=== PATIENT | female | born 1965 | race Caucasian/White ===

== ENCOUNTER 2020-07-20 13:27 | Outpatient (REF) | payer OTHER, SELFPAY ==
[2020-07-20 16:43] LABS: MANUAL DIFF FLAG NO
[2020-07-20 17:10] LABS: Anion Gap 13 (12-20); Blood Urea Nitrogen 15 mg/dL (9-16); Calcium 9.1 mg/dL (8.4-10.2); Carbon Dioxide 25 mmol/L (22-29); Chloride 107 mmol/L (96-108); Estimated Glomerular Filt Rate > 60; Glucose Random 79 mg/dL (60-115); Potassium 4.6 mmol/l (3.3-5.1); Sodium 140 mmol/L (135-145)
[2020-07-20 17:19] LABS: Basophils Absolute Auto 0.1 X10*3/uL (0.0-0.2); Basophils Percent Auto 1.6 % (0-2); Eosinophils Absolute Auto 0.2 X10*3/uL (0.0-0.4); Eosinophils Percent Auto 2.7 % (0-4); Hematocrit 44.6 % (37-47); Hemoglobin 14.3 g/dl (12.0-16.0); Imm Gran Abs Auto 0.01 X10*3/uL (0.00-0.03); Imm Gran Pct Auto 0.1 % (0.0-0.4); Lymphocytes Absolute Auto 2.3 X10*3/uL (1.2-4.9); Lymphocytes Percent Auto 33.7 % (20-40); Mean Corpuscular HGB Conc 32.1 g/dl (31.0-35.0); Mean Corpuscular Hemoglobin 30.3 pg (27.0-33.0); Mean Corpuscular Volume 94.5 fL (80-98); Mean Platelet Volume 12.2 fL (9.4-12.3); Monocytes Absolute Auto 0.7 X10*3/uL (0.1-1.2); Monocytes Percent Auto 10.1 % (2-11); Neutrophils Absolute Auto 3.5 X10*3/uL (2.0-8.3); Neutrophils Percent Auto 51.8 % (45-73); Platelet Count 304 X10*3/uL (160-400); Red Blood Count 4.72 X10*6/uL (4.20-5.50); Red Cell Distribution Width 12.7 % (11.0-16.0); White Blood Count 6.7 X10*3/uL (4.8-10.8)
[2020-07-20 17:24] LABS: TSH reflex Free T4 1.08 mIU/mL (0.32-4.0)
[2020-07-21 17:23] LABS: LDL Cholesterol Direct 155 mg/dL (<100)
[2020-07-24 13:38] LABS: Vitamin D 25-OH, D2 <4 ng/mL; Vitamin D 25-OH, D3 37 ng/mL; Vitamin D 25-OH, Total 37 ng/mL (30-100)
== END 2020-07-20 13:28 | disposition home or self-care (01) ==
LOC: HO.HMGCLDS 13:27
PROVIDERS: PCP Internal Medicine; Visit Provider Internal Medicine
DX: R23.2 Flushing (principal); E55.9 Vitamin D deficiency, unspecified; M79.7 Fibromyalgia; M19.90 Unspecified osteoarthritis, unspecified site; K21.9 Gastro-esophageal reflux disease without esophagitis; F33.9 Major depressive disorder, recurrent, unspecified
CPT/HCPCS: 36415; 80048; 82306; 83721; 84443; 85025

== ENCOUNTER 2020-08-26 12:19 | Outpatient (REF) | payer OTHER, SELFPAY ==
[2020-08-26 13:53] LABS: MANUAL DIFF FLAG NO
[2020-08-26 13:59] LABS: Basophils Absolute Auto 0.1 X10*3/uL (0.0-0.2); Basophils Percent Auto 1.1 % (0-2); Eosinophils Absolute Auto 0.3 X10*3/uL (0.0-0.4); Eosinophils Percent Auto 3.1 % (0-4); Hematocrit 43.2 % (37-47); Hemoglobin 13.8 g/dl (12.0-16.0); Imm Gran Abs Auto 0.03 X10*3/uL (0.00-0.03); Imm Gran Pct Auto 0.4 % (0.0-0.4); Lymphocytes Absolute Auto 2.6 X10*3/uL (1.2-4.9); Lymphocytes Percent Auto 32.4 % (20-40); Mean Corpuscular HGB Conc 31.9 g/dl (31.0-35.0); Mean Corpuscular Hemoglobin 30.3 pg (27.0-33.0); Mean Corpuscular Volume 94.7 fL (80-98); Mean Platelet Volume 11.6 fL (9.4-12.3); Monocytes Absolute Auto 0.8 X10*3/uL (0.1-1.2); Monocytes Percent Auto 9.9 % (2-11); Neutrophils Absolute Auto 4.3 X10*3/uL (2.0-8.3); Neutrophils Percent Auto 53.1 % (45-73); Platelet Count 368 X10*3/uL (160-400); Red Blood Count 4.56 X10*6/uL (4.20-5.50); Red Cell Distribution Width 12.9 % (11.0-16.0); White Blood Count 8.1 X10*3/uL (4.8-10.8)
== END 2020-08-26 12:20 | disposition home or self-care (01) ==
LOC: HO.HMGCLDS 12:19
PROVIDERS: PCP Internal Medicine; Visit Provider Nurse Practitioner Family
DX: M79.10 Myalgia, unspecified site (principal)
CPT/HCPCS: 36415; 85025

== ENCOUNTER → 2020-10-26 13:25 | Outpatient (BNVA) | payer OTHER, SELFPAY | PROVIDERS: PCP Internal Medicine; Visit Provider Dietitian, Registered ==

== ENCOUNTER 2020-11-30 13:20 | Outpatient (REF) | payer OTHER, SELFPAY ==
[2020-11-30 14:42] LABS: MANUAL DIFF FLAG NO
[2020-11-30 14:46] LABS: Basophils Absolute Auto 0.1 X10*3/uL (0.0-0.2); Basophils Percent Auto 1.1 % (0-2); Eosinophils Absolute Auto 0.1 X10*3/uL (0.0-0.4); Eosinophils Percent Auto 2.1 % (0-4); Hematocrit 42.4 % (37-47); Hemoglobin 13.9 g/dl (12.0-16.0); Imm Gran Abs Auto 0.01 X10*3/uL (0.00-0.03); Imm Gran Pct Auto 0.2 % (0.0-0.4); Lymphocytes Percent Auto 30.1 % (20-40); Mean Corpuscular HGB Conc 32.8 g/dl (31.0-35.0); Mean Corpuscular Hemoglobin 30.6 pg (27.0-33.0); Mean Corpuscular Volume 93.4 fL (80-98); Mean Platelet Volume 11.1 fL (9.4-12.3); Monocytes Absolute Auto 0.5 X10*3/uL (0.1-1.2); Monocytes Percent Auto 7.9 % (2-11); Neutrophils Absolute Auto 3.9 X10*3/uL (2.0-8.3); Neutrophils Percent Auto 58.6 % (45-73); Platelet Count 364 X10*3/uL (160-400); Red Blood Count 4.54 X10*6/uL (4.20-5.50); Red Cell Distribution Width 12.5 % (11.0-16.0); White Blood Count 6.6 X10*3/uL (4.8-10.8)
[2020-11-30 15:04] LABS: Alanine Aminotransferase 15 U/L (0-31); Alkaline Phosphatase 91 U/L (39-117); Anion Gap 12 (12-20); Aspartate Amino Transferase 20 U/L (5-31); Bilirubin Total 0.4 mg/dL (0.0-1.0); Blood Urea Nitrogen 15 mg/dL (9-16); C Reactive Protein 0.53 mg/dL (< or = 0.50); Calcium 9.3 mg/dL (8.4-10.2); Carbon Dioxide 24 mmol/L (22-29); Chloride 109 mmol/L (96-108); Estimated Glomerular Filt Rate > 60; Glucose Random 92 mg/dL (60-115); Potassium 4.3 mmol/L (3.3-5.1); Rheumatoid Factor < 15.0 IU/mL (<15.0); Sodium 141 mmol/L (135-145); Total Protein 7.1 g/dL (6.5-8.0)
[2020-11-30 15:24] LABS: Thyroid Stimulating Hormone 0.66 uIU/mL (0.32-4.0)
[2020-11-30 15:34] LABS: Erythrocyte Sedimentation Rate 10 MM/HR (0-20)
[2020-12-01 18:46] LABS: Cyclic Citrullinated Peptide <16 UNITS
[2020-12-03 14:22] LABS: Vitamin D 25-OH, D2 <4 ng/mL; Vitamin D 25-OH, D3 32 ng/mL; Vitamin D 25-OH, Total 32 ng/mL (30-100)
[2020-12-05 15:51] LABS: Anti Nuclear Antibody Screen POSITIVE (NEGATIVE); Anti Nuclear Antibody Titer 1:40 titer
== END 2020-11-30 13:21 | disposition home or self-care (01) ==
LOC: HO.LAB 13:20
PROVIDERS: PCP Internal Medicine; Visit Provider Student in an Organized Health Care Education/Training Program
DX: M25.50 Pain in unspecified joint (principal); M79.10 Myalgia, unspecified site; M77.11 Lateral epicondylitis, right elbow; M77.12 Lateral epicondylitis, left elbow; Z79.899 Other long term (current) drug therapy
CPT/HCPCS: 36415; 80053; 82306; 84443; 85025; 85652; 86038; 86039; 86140; 86200; 86431; 99202

== ENCOUNTER 2020-12-14 13:54 | Outpatient (RCR) | payer OTHER, SELFPAY | END 2021-01-25 11:57 | disposition other institution (70) | LOC: HO.OT 13:54 | PROVIDERS: PCP Internal Medicine; Visit Provider Student in an Organized Health Care Education/Training Program | DX: M25.50 Pain in unspecified joint (principal) | CPT/HCPCS: 97110; 97166 ==

== ENCOUNTER 2020-12-21 15:12 | Outpatient (REF) | payer OTHER, SELFPAY | END 2020-12-21 15:13 | disposition home or self-care (01) | LOC: HO.LAB 15:12 | PROVIDERS: Visit Provider Internal Medicine | DX: Z20.822 Contact with and (suspected) exposure to COVID-19 (principal) | CPT/HCPCS: C9803; U0003; U0005 ==

== ENCOUNTER 2021-01-11 15:25 | Outpatient (REF) | payer OTHER, SELFPAY ==
[2021-01-12 05:16] LABS: Lyme Abs Screen <0.90 index
== END 2021-01-11 15:26 | disposition home or self-care (01) ==
LOC: HO.LAB 15:25
PROVIDERS: PCP Internal Medicine; Visit Provider Student in an Organized Health Care Education/Training Program
DX: M25.50 Pain in unspecified joint (principal); Z79.899 Other long term (current) drug therapy
CPT/HCPCS: 36415; 86617; 86618; 99212

== ENCOUNTER 2021-02-14 15:08 | Outpatient (REF) | payer OTHER, SELFPAY ==
[2021-02-15 09:07] LABS: BV Int Neg Control Negative (Negative); BV Int Pos Control Positive (Positive)
[2021-02-15 09:28] LABS: CT PCR DETECTED (Not Detect.); NG PCR NOT DETECTED (Not Detect.)
== END 2021-02-14 15:09 | disposition home or self-care (01) ==
LOC: HO.LAB 15:08
PROVIDERS: PCP Internal Medicine; Visit Provider Obstetrics & Gynecology
DX: Z01.411 Encounter for gynecological examination (general) (routine) with abnormal findings (principal); Z11.3 Encounter for screening for infections with a predominantly sexual mode of transmission; N95.1 Menopausal and female climacteric states; R35.0 Frequency of micturition; Z20.2 Contact with and (suspected) exposure to infections with a predominantly sexual mode of transmission
CPT/HCPCS: 81003; 87086; 87480; 87491; 87510; 87591; 87660

== ENCOUNTER → 2021-02-22 09:57 | Outpatient (BNVA) | payer OTHER, SELFPAY | PROVIDERS: PCP Internal Medicine; Visit Provider Student in an Organized Health Care Education/Training Program | DX: M79.7 Fibromyalgia (principal) | CPT/HCPCS: 99212 ==

== ENCOUNTER 2021-02-27 12:49 | Outpatient (REF) | payer OTHER, SELFPAY ==
--- NOTE | ~2021-02-27 | MM_ITS ---
EXAMINATION: MM SCREENING DIGITAL BREAST TOMOSYNTHESIS, BILATERAL CLINICAL INFORMATION: Screening. Asymptomatic. The lifetime risk of breast cancer based on the Tyrer-Cuzick Model is 6%. COMPARISON: Outside mammography: 09/16/2019, 09/12/2018, 09/11/2017 ([place]) TECHNIQUE: Digital breast tomosynthesis is performed in both the craniocaudal and mediolateral oblique views along with computer-aided detection (CAD). Synthesized 2D images are generated from the tomosynthesis. Additional left CC view is provided. FINDINGS: There are scattered areas of fibroglandular density (ACR BI-RADS breast composition Category b). Parenchymal pattern is similar to the outside exams. There are stable fine scattered nodular asymmetries. No developing density or interval mass or architectural abnormality. A few punctate calcifications again noted mid outer left breast. The axilla and skin contours are unremarkable. MM/MM tomosynthesis screening BI IMPRESSION: No significant changes from prior outside exams. ASSESSMENT: BI-RADS 2: Benign RECOMMENDATION: Routine annual mammography screening. This patient's information was entered into a reminder system with a target due date for their next mammogram.
== END 2021-02-27 12:50 | disposition home or self-care (01) ==
LOC: HO.MAMMO 12:49
PROVIDERS: PCP Internal Medicine; Visit Provider Obstetrics & Gynecology
DX: Z12.31 Encounter for screening mammogram for malignant neoplasm of breast (principal)
CPT/HCPCS: 77063; 77067

== ENCOUNTER 2021-03-09 10:40 | Outpatient (REF) | payer OTHER, SELFPAY ==
[2021-03-09 12:56] LABS: MANUAL DIFF FLAG NO
[2021-03-09 13:04] LABS: Basophils Absolute Auto 0.1 X10*3/uL (0.0-0.2); Basophils Percent Auto 0.8 % (0-2); Eosinophils Absolute Auto 0.1 X10*3/uL (0.0-0.4); Eosinophils Percent Auto 1.7 % (0-4); Hematocrit 42.2 % (37-47); Hemoglobin 13.6 g/dl (12.0-16.0); Imm Gran Abs Auto 0.02 X10*3/uL (0.00-0.03); Imm Gran Pct Auto 0.3 % (0.0-0.4); Lymphocytes Percent Auto 28.5 % (20-40); Mean Corpuscular HGB Conc 32.2 g/dl (31.0-35.0); Mean Corpuscular Hemoglobin 30.1 pg (27.0-33.0); Mean Corpuscular Volume 93.4 fL (80-98); Monocytes Absolute Auto 0.6 X10*3/uL (0.1-1.2); Monocytes Percent Auto 8.7 % (2-11); Neutrophils Absolute Auto 4.3 X10*3/uL (2.0-8.3); Platelet Count 396 X10*3/uL (160-400); Red Blood Count 4.52 X10*6/uL (4.20-5.50); Red Cell Distribution Width 12.6 % (11.0-16.0); White Blood Count 7.1 X10*3/uL (4.8-10.8)
[2021-03-09 13:34] LABS: Alanine Aminotransferase 13 U/L (0-31); Alkaline Phosphatase 92 U/L (39-117); Anion Gap 12 (12-20); Aspartate Amino Transferase 20 U/L (5-31); Bilirubin Total 0.4 mg/dL (0.0-1.0); Blood Urea Nitrogen 12 mg/dL (9-16); C Reactive Protein 0.75 mg/dL (< or = 0.50); Calcium 9.5 mg/dL (8.4-10.2); Carbon Dioxide 24 mmol/L (22-29); Chloride 109 mmol/L (96-108); Estimated Glomerular Filt Rate > 60; Glucose Random 83 mg/dL (60-115); Sodium 140 mmol/L (135-145)
[2021-03-09 13:53] LABS: Erythrocyte Sedimentation Rate 13 MM/HR (0-20)
[2021-03-09 13:55] LABS: Thyroid Stimulating Hormone 1.09 uIU/mL (0.32-4.0)
[2021-03-14 20:37] LABS: Transglutaminase IgA 1 U/mL
[2021-03-16 11:52] LABS: Endomysial IgA Antibody Negative (Negative)
== END 2021-03-09 10:41 | disposition home or self-care (01) ==
LOC: HO.LAB 10:40
PROVIDERS: PCP Internal Medicine; Referring Provider Internal Medicine; Visit Provider Physician Assistant
DX: R10.11 Right upper quadrant pain (principal); K21.9 Gastro-esophageal reflux disease without esophagitis; K58.9 Irritable bowel syndrome, unspecified; K62.5 Hemorrhage of anus and rectum; K59.09 Other constipation; R19.7 Diarrhea, unspecified; Z79.899 Other long term (current) drug therapy
CPT/HCPCS: 36415; 80053; 83516; 84443; 85025; 85652; 86140; 86255; 86256; 99202

== ENCOUNTER 2021-04-03 14:00 | Outpatient (RCR) | payer OTHER, SELFPAY ==
--- NOTE | 2021-03-06 16:03 | MHC.PT.EP ---
[facility] [place] Office [place] Office [place] Office [address] Everardo Mackay [address] [phone] F: [phone] F: [phone] F: [phone] F: [phone] Physical Therapy Plan of Care Date of Evaluation: Date of Surgery: Diagnosis: Assessment: The patient arrived reporting a complicated pelvic history including multiple bladder mesh surgeries, and pelvic organ prolapse. The patient has had 5 vaginal deliveries and reports having a hysterectomy in 2009. She also has mixed urinary incontinence likely due to weakness in her pelvic floor and habits formed due to pelvic floor dysfuction. She reports dyspareunia and is unable to consistently have pleasurable intercourse. Her history was extensive and with the patient arriving late we deferred the internal exam until next visit. She is a good candidate for skilled pelvic floor therapy to improve muscle coordination, synergy of contraction, diaphragmatic breathing for modulating pressure control, and manual therapy to address likely scar tissue internally in her pelvic floor. I believe behavior training will also be beneficial for urge incontinence. Frequency and Duration: The patient will be seen 1x/8 visits Short Term Goals: 1. The patient to be able to learn modifications her and her partner can use during intercourse to alleviate pain caused by penetration. 2. Pt to report 25% reduction in deep pelvic pain. 3. Pt to be able to correctly activate her PFM to allow improved support to bowel and bladder. 4. Pt to be able to demonstrate a pre contraction before a cough Rug Dyer Goals: 1. The patient to be able to report no pain in her pelvis during house chore, and ADL's to help return to PLOF. 2. Pt to be able to improve PFM contraction to include a lift in the PFM to improve supportive function of the pelvic floor. 3. Pt to be able to return to normal sexual activity without pain. 4. Pt to reduce # of episodes of YULIA during the day by 50% to help improve quality of life and reduce pad usage. 5. Pt to be independent with her final HEP for PFM in order to help maintain gains made in therapy. Treatment Plan: Modalities to reduce pain, spasms and effusion. Manual therapy to restore motion and function. Therapeutic exercise to improve strength and flexibility. Neuromuscular re-education for posture and balance. Therapeutic activities to return to functional activities of daily living. Electronically signed by: Chrissie Vasquez PT DPT Please sign and return to therapist. Thank you for your referral.
== END 2021-07-24 08:00 | disposition home or self-care (01) ==
LOC: HO.PT 14:00
PROVIDERS: PCP Internal Medicine; Visit Provider Obstetrics & Gynecology
DX: N81.4 Uterovaginal prolapse, unspecified (principal)
CPT/HCPCS: 97110; 97112; 97140; 97163

== ENCOUNTER → 2021-04-27 12:02 | Outpatient (BNVA) | payer OTHER, SELFPAY | PROVIDERS: PCP Internal Medicine; Visit Provider Physician Assistant ==

== ENCOUNTER → 2021-05-04 14:43 | Outpatient (BNVA) | payer OTHER, SELFPAY | PROVIDERS: PCP Internal Medicine; Referring Provider Internal Medicine; Visit Provider Internal Medicine | DX: R00.2 Palpitations (principal) | CPT/HCPCS: 93005; 99202 ==

== ENCOUNTER 2021-05-18 10:40 | Outpatient (REF) | payer OTHER, SELFPAY ==
[2021-05-18 13:03] LABS: Alanine Aminotransferase 17 U/L (0-31); Albumin Level 4.1 g/dL (3.5-5.0); Alkaline Phosphatase 96 U/L (39-117); Anion Gap 12 (12-20); Aspartate Amino Transferase 20 U/L (5-31); Bilirubin Total 0.3 mg/dL (0.0-1.0); Blood Urea Nitrogen 9 mg/dL (9-16); Calcium 9.2 mg/dL (8.4-10.2); Carbon Dioxide 24 mmol/L (22-29); Chloride 107 mmol/L (96-108); Cholesterol 230 mg/dL; Estimated Glomerular Filt Rate > 60; Glucose Fasting 89 mg/dL (60-99); HDL Cholesterol 71 mg/dL; LDL Cholesterol Calculated 143 mg/dl; Potassium 4.5 mmol/L (3.3-5.1); Sodium 138 mmol/L (135-145); Total Protein 7.2 g/dL (6.5-8.0); Triglycerides 80 mg/dL
[2021-05-18 15:47] LABS: CT PCR NOT DETECTED (Not Detect.); NG PCR NOT DETECTED (Not Detect.)
[2021-05-22 13:27] LABS: Follicle Stimulating Hormone 38.2 mIU/mL
== END 2021-05-18 10:41 | disposition home or self-care (01) ==
LOC: HO.LAB 10:40
PROVIDERS: PCP Internal Medicine; Visit Provider Advanced Practice Midwife
DX: A74.9 Chlamydial infection, unspecified (principal); R23.2 Flushing; Z20.2 Contact with and (suspected) exposure to infections with a predominantly sexual mode of transmission; Z00.01 Encounter for general adult medical examination with abnormal findings; E78.9 Disorder of lipoprotein metabolism, unspecified; M79.7 Fibromyalgia; F33.9 Major depressive disorder, recurrent, unspecified; K21.9 Gastro-esophageal reflux disease without esophagitis
CPT/HCPCS: 36415; 80053; 80061; 83001; 87491; 87591; 99212

== ENCOUNTER → 2021-06-05 11:08 | Outpatient (REF) | payer OTHER, SELFPAY ==
--- NOTE | 2021-06-05 11:15 | HM_ITS ---
Total monitoring time 6 days and 21 hours. Underlying rhythm is sinus. Minimum heart rate 46/Min. Maximum 169/Min. Average 80/Min. No atrial fibrillation or flutter. No AV blocks, pauses. 2 supraventricular episodes. Longest 9 beats. Rare supraventricular ectopy with a burden of 0.01%. Very rare ventricular ectopy with a burden of less than 0.01%. No patient events. MTDD
== END ==
LOC: HO.CARD 11:08
PROVIDERS: PCP Internal Medicine; Visit Provider Internal Medicine
DX: R00.2 Palpitations (principal)
CPT/HCPCS: 93242

== ENCOUNTER → 2021-06-12 09:26 | Outpatient (REF) | payer OTHER, SELFPAY ==
--- NOTE | 2021-06-12 09:31 | CA_ITS ---
Transthoracic Echocardiogram Patient (Last, First, Middle): Janna Hooper, Gender: Female Date of : 1965 Age: 56 Procedure Date: 06/12/2021 Procedure Type: Transthoracic Echocardiogram Location: OP Height: 162.56 cm Weight: 77.11 kg BSA: 1.83 m2 Heart Rate: bpm BP: 120 / 72 mmHg Money Market Dealer: LAURA Referring MD: Hiram Fontenot MD Symptoms: R00.2 - Palpitations Study Quality: Fair ECG Rhythm: Sinus Conclusions: - The left ventricular systolic function is normal. The calculated ejection fraction is 69% by biplane method. - No obvious valvular pathology seen on this study. Findings Left Ventricle Normal left ventricular cavity size. There is normal left ventricular wall thickness. The left ventricular systolic function is normal. The calculated ejection fraction is 69% by biplane method. There is no evidence of regional wall motion abnormalities. Diastolic function is normal for age. Right Ventricle Normal right ventricular cavity size and systolic function. Atria Both atria are normal in size. Aortic Valve There is a normal trileaflet aortic valve. There is mild calcification of the aortic valve. There is no aortic valve stenosis. There is no aortic valve regurgitation. Mitral Valve The mitral valve appears normal. There is trace mitral valve regurgitation. There is no mitral valve stenosis. Pulmonic Valve The pulmonic valve was not well visualized. Tricuspid Valve Normal tricuspid valve structure. There is trace tricuspid valve regurgitation. The pulmonary artery systolic pressure is normal. Great Vessels The aortic annulus, sinuses of valsalva, and asc aorta are normal in size. Venous The inferior vena cava is normal in size and collapses greater than 50% with inspiration. Pericardium/Pleural There is no evidence of pericardial effusion. Prior Study Comparison No prior study available for comparison. Recommendations, Care & Conclusions No obvious valvular pathology seen on this study. Measurements 2D Linear Measurements IVSd: 0.84 0.6-0.9/0.6-1.0 cm LVIDd: 4.20 3.9-5.3/4.2-5.9 cm LVIDd Index: 2.30 2.4-3.2/2.2-3.1 cm/m2 LVIDs: 3.01 2.0-3.6 cm LVPWd: 0.74 0.7-1.1 cm Ao Root: 2.70 2.1-3.5 cm LA Diam: 3.20 2.7-3.8/3.0-4.0 cm LAIDs Index: 1.75 1.5-2.3 cm/m2 LV Mass: 123.04 67-162/88-224 g LV Mass Index: 67.24 43-95/49-115 g/m2 LVOT Diam: 2.00 3.0+(-)1.3 cm 2D Systolic Function EF 4C: 68.60 >55% EF 2C: 71.40 >55% EF BiP: 68.50 >55% Mitral Valve MV Pk E: 1.04 MV PK A: 0.77 MV Decel Time: 229.00 E/A: 1.30 E'Lateral: 10.90 E'Medial: 9.90 E/E' Med: 10.50 E/E' Lat: 9.50 PHT: 67.00 MVA PHT: 3.28 Decel [place]: 4.55 Aortic Valve AoV Pk Tino: 1.15 AoV Mn Tino: 0.78 AoV VTI: 0.29 AoV Pk Grad: 5.00 Aov Mn Grad: 3.00 RIMA Cont.VTI: 2.14 LVOT LVOT Pk Tino: 0.89 LVOT Mn Tino: 0.61 LVOT VTI: 0.20 LVOT Pk Grad: 3.00 LVOT Mn Grad: 2.00 LVOT Diam: 2.00 LVOT Area: 3.14 Diastolic Function MV Pk E: 1.04 MV Pk A: 0.77 E/A: 1.30 E'Medial: 9.90 E/E' Med: 10.50 E' Laterial: 10.90 E/E' Lat: 9.50 Right Ventricle TAPSE (mm): 1.69 TVS' Tino: 11.00 Tricuspid Valve TR Pk Tino: 1.36 TR Pk Grad: 7.00 RA Press: 3.00 RVSP: 10.00 Great Vessels Aorta Ao Root-2D: 2.70 2.0-3.7 cm Ao Asc: 2.60 2.1-3.4 cm Ao Arch: 2.30 Updated in Other Vendor System with Status of Final Hiram Fontenot MD electronically signed on 06/12/2021 12:18:55 PM with status of Final
== END ==
LOC: HO.CARD 09:26
PROVIDERS: PCP Internal Medicine; Visit Provider Internal Medicine
DX: R00.2 Palpitations (principal)
CPT/HCPCS: 93306

== ENCOUNTER → 2021-07-03 12:48 | Outpatient (BNVA) | payer OTHER, SELFPAY | PROVIDERS: PCP Internal Medicine; Referring Provider Internal Medicine; Visit Provider Internal Medicine | DX: I49.1 Atrial premature depolarization (principal); I49.3 Ventricular premature depolarization; R00.2 Palpitations | CPT/HCPCS: 99212 ==

== ENCOUNTER → 2021-08-29 14:51 | Outpatient (BNVA) | payer OTHER, SELFPAY | PROVIDERS: PCP Internal Medicine; Visit Provider Advanced Practice Midwife | DX: Z30.45 Encounter for surveillance of transdermal patch hormonal contraceptive device (principal) | CPT/HCPCS: Q3014 ==

== ENCOUNTER 2021-10-16 14:07 | Outpatient (REF) | payer OTHER, SELFPAY ==
[2021-10-17 05:17] LABS: CT PCR NOT DETECTED (Not Detect.); NG PCR NOT DETECTED (Not Detect.)
[2021-10-17 09:43] LABS: BV Int Neg Control Negative (Negative); BV Int Pos Control Positive (Positive)
== END 2021-10-16 14:08 | disposition home or self-care (01) ==
LOC: HO.LAB 14:07
PROVIDERS: PCP Internal Medicine; Visit Provider Advanced Practice Midwife
DX: R10.2 Pelvic and perineal pain (principal); N32.9 Bladder disorder, unspecified; R33.9 Retention of urine, unspecified; N95.1 Menopausal and female climacteric states; Z20.2 Contact with and (suspected) exposure to infections with a predominantly sexual mode of transmission
CPT/HCPCS: 87086; 87480; 87491; 87510; 87591; 87660; 99212

== ENCOUNTER 2021-12-08 10:09 | Outpatient (REF) | payer OTHER, SELFPAY ==
[2021-12-12 14:58] LABS: H Pylori Breath Test Negative (Negative)
== END 2021-12-08 10:10 | disposition home or self-care (01) ==
LOC: CF 10:09
PROVIDERS: PCP Internal Medicine; Referring Provider Internal Medicine; Visit Provider Internal Medicine Gastroenterology
DX: R10.13 Epigastric pain (principal)
CPT/HCPCS: 36415; 83013; 99212

== ENCOUNTER 2021-12-28 09:31 | Outpatient (REF) | payer OTHER, SELFPAY ==
--- NOTE | ~2021-12-28 | US_ITS ---
EXAMINATION: US ABDOMEN COMPLETE CLINICAL INFORMATION: Epigastric pain. COMPARISON: None TECHNIQUE: Real-time imaging of the abdominal viscera. FINDINGS: PANCREAS: Normal. ABDOMINAL AORTA: The proximal, mid, and distal segments are normal in caliber. INFERIOR VENA CAVA: Visualized portions are normal. LIVER: Normal. The liver is normal in size. The liver contour is normal. Parenchymal echogenicity is increased. No focal hepatic lesion. There is no intrahepatic biliary duct dilatation seen. GALLBLADDER: Normal. The gallbladder is physiologically distended without evidence of stones, sludge, polyps, wall thickening or pericholecystic fluid. COMMON BILE DUCT: Normal in caliber measuring 0.5 cm in diameter. RIGHT KIDNEY: Normal. No hydronephrosis. No renal calculi or focal parenchymal lesions. The kidney measures 9.7 cm in maximum dimension. LEFT KIDNEY: No hydronephrosis. There are several echogenic calculi with the largest in the lower pole measuring 0.6 x 0.3 cm. The kidney measures 9.3 cm in maximum dimension. There is a lower pole anechoic cyst measuring 2.5 x 2.7 x 2.3 cm. There is no caliectasis or hydronephrosis. SPLEEN: Normal. The spleen measures 8.1 cm in maximum dimension. FREE FLUID: None. US/US abdomen complete IMPRESSION: Hepatic steatosis without focal lesion. Anechoic cyst lower pole left kidney measuring 2.7 cm. There are several echogenic stones measuring 0.6 cm without focal lesion. There are punctate calcifications seen as well.
== END 2021-12-28 09:32 | disposition home or self-care (01) ==
LOC: HO.US 09:31
PROVIDERS: Visit Provider Internal Medicine Gastroenterology
DX: R10.13 Epigastric pain (principal)
CPT/HCPCS: 76700

== ENCOUNTER 2022-02-21 14:35 | Outpatient (REF) | payer OTHER, SELFPAY ==
[2022-02-21 16:35] LABS: MANUAL DIFF FLAG NO
[2022-02-21 16:43] LABS: Basophils Absolute Auto 0.1 X10*3/uL (0.0-0.2); Basophils Percent Auto 0.9 % (0-2); Eosinophils Absolute Auto 0.1 X10*3/uL (0.0-0.4); Eosinophils Percent Auto 1.4 % (0-4); Hematocrit 43.3 % (37.0-47.0); Hemoglobin 14.1 g/dl (12.0-16.0); Imm Gran Abs Auto 0.03 X10*3/uL (0.00-0.03); Imm Gran Pct Auto 0.4 % (0.0-0.4); Lymphocytes Absolute Auto 2.2 X10*3/uL (1.2-4.9); Lymphocytes Percent Auto 28.6 % (20-40); Mean Corpuscular HGB Conc 32.6 g/dl (31.0-35.0); Mean Corpuscular Hemoglobin 29.9 pg (27.0-33.0); Mean Corpuscular Volume 91.9 fL (80.0-98.0); Mean Platelet Volume 11.6 fL (9.4-12.3); Monocytes Absolute Auto 0.5 X10*3/uL (0.1-1.2); Monocytes Percent Auto 6.4 % (2-11); Neutrophils Absolute Auto 4.8 x10*3/uL (2.0-8.3); Neutrophils Percent Auto 62.3 % (45-73); Platelet Count 379 X10*3/uL (160-400); Red Blood Count 4.71 X10*6/uL (4.20-5.50); Red Cell Distribution Width 12.4 % (11.0-16.0); White Blood Count 7.7 X10*3/uL (4.8-10.8)
[2022-02-21 17:33] LABS: Alanine Aminotransferase 17 U/L (0-31); Albumin Level 4.2 g/dL (3.5-5.0); Alkaline Phosphatase 100 U/L (39-117); Anion Gap 13 (12-20); Aspartate Amino Transferase 21 U/L (5-31); Bilirubin Total 0.4 mg/dL (0.0-1.0); Blood Urea Nitrogen 11 mg/dL (9-16); Calcium 9.5 mg/dL (8.4-10.2); Carbon Dioxide 22 mmol/L (22-29); Chloride 109 mmol/L (96-108); Estimated Glomerular Filt Rate > 60; Glucose Random 99 mg/dL (60-115); Potassium 3.9 mmol/L (3.3-5.1); Sodium 140 mmol/L (135-145); Total Protein 7.3 g/dL (6.5-8.0)
[2022-02-21 17:53] LABS: TSH reflex Free T4 1.27 uIU/mL (0.32-4.0)
== END 2022-02-21 14:36 | disposition home or self-care (01) ==
LOC: HO.HMGCLDS 14:35
PROVIDERS: PCP Internal Medicine; Visit Provider Internal Medicine
DX: R23.3 Spontaneous ecchymoses (principal); R63.4 Abnormal weight loss
CPT/HCPCS: 36415; 80053; 84443; 85025

== ENCOUNTER 2022-02-28 13:17 | Outpatient (REF) | payer OTHER, SELFPAY ==
--- NOTE | ~2022-02-28 | MM_ITS ---
EXAMINATION: MM SCREENING DIGITAL BREAST TOMOSYNTHESIS, BILATERAL CLINICAL INFORMATION: Screening. Asymptomatic. The lifetime risk of breast cancer based on the Tyrer-Cuzick Model is 6%. COMPARISON: Mammography: 02/27/2021; outside mammography 09/16/2019, 09/12/2018, 09/11/2017 ([place]). TECHNIQUE: Digital breast tomosynthesis is performed in both the craniocaudal and mediolateral oblique views along with computer-aided detection (CAD). Synthesized 2D images are generated from the tomosynthesis. FINDINGS: There are scattered areas of fibroglandular density (ACR BI-RADS breast composition Category b). There is scattered benign-appearing smooth nodular asymmetries similar to prior studies. No developing density or interval architectural abnormality or significant mass. The axilla and skin contours are unremarkable. No abnormal calcifications on the right. Left breast has loosely grouped punctate calcifications central upper outer left breast mid depth which are questionably increased. Patient will be recalled for additional imaging. MM/MM tomosynthesis screening BI IMPRESSION: Left: -Loosely grouped fine punctate calcifications central upper outer breast mid depth questionably increased. Right: -No mammographic evidence of malignancy. ASSESSMENT: BI-RADS 0: Incomplete - Need Additional Imaging Evaluation RECOMMENDATION: 1. Additional views of the left breast (magnification CC, magnification ML). 2. Radiology department staff will contact the patient for additional imaging. This patient's information was entered into a reminder system with a target due date for their next mammogram.
== END 2022-02-28 13:18 | disposition home or self-care (01) ==
LOC: HO.MAMMO 13:17
PROVIDERS: Visit Provider Internal Medicine
DX: Z12.31 Encounter for screening mammogram for malignant neoplasm of breast (principal)
CPT/HCPCS: 77063; 77067

== ENCOUNTER 2022-03-06 13:26 | Outpatient (REF) | payer OTHER, SELFPAY ==
--- NOTE | ~2022-03-06 | MM_ITS ---
EXAMINATION: MM DIAGNOSTIC DIGITAL MAMMOGRAPHY, LEFT CLINICAL INFORMATION: Recall from screening for question of increased loosely grouped fine calcifications central upper outer left breast mid depth. COMPARISON: Mammography: 02/28/2022, 02/27/2021, 09/16/2019 TECHNIQUE: Digital mammography is performed in the following views: Magnification CC, magnification ML FINDINGS: There are scattered areas of fibroglandular density (ACR BI-RADS breast composition Category b). The magnification views show some loosely grouped punctate calcifications in the area of interest. They are likely unchanged from standard mammography 2019, no prior diagnostic exam 2 confirm. Results are discussed with the patient at time of visit. Management plan is for short interval follow-up left mammography to include magnification views in 6 months to confirm stability. MM/MM added views LT IMPRESSION: -Loosely grouped probable benign calcifications central upper outer left breast mid depth similar to prior mammography, likely stable. ASSESSMENT: BI-RADS 3: Probably Benign RECOMMENDATION: Diagnostic left mammography in 6 months. This patient's information was entered into a reminder system with a target due date for their next mammogram.
== END 2022-03-06 13:27 | disposition home or self-care (01) ==
LOC: HO.MAMMO 13:26
PROVIDERS: Visit Provider Internal Medicine
DX: R92.1 Mammographic calcification found on diagnostic imaging of breast (principal)
CPT/HCPCS: 77065

== ENCOUNTER 2022-03-16 13:48 | Outpatient (REF) | payer OTHER, SELFPAY ==
[2022-03-16 16:31] LABS: Urine Cytology See Pathology rpt
== END 2022-03-16 13:49 | disposition home or self-care (01) ==
LOC: HO.LAB 13:48
PROVIDERS: PCP Internal Medicine
DX: R31.9 Hematuria, unspecified (principal); R33.9 Retention of urine, unspecified; N23 Unspecified renal colic
CPT/HCPCS: 51798; 88112; 99202

== ENCOUNTER → 2022-03-23 10:21 | Outpatient (BNVA) | payer OTHER, SELFPAY | PROVIDERS: PCP Internal Medicine; Visit Provider Internal Medicine Gastroenterology | DX: K21.9 Gastro-esophageal reflux disease without esophagitis (principal); K30 Functional dyspepsia; K31.84 Gastroparesis | CPT/HCPCS: 99212 ==

== ENCOUNTER 2022-04-18 11:49 | Outpatient (REF) | payer OTHER, SELFPAY ==
--- NOTE | ~2022-04-18 | XR_ITS ---
EXAMINATION: XR HAND, RIGHT CLINICAL INFORMATION: Injury of the hand COMPARISON: None TECHNIQUE: PA, lateral, and oblique views of the right hand. FINDINGS: No fracture or dislocation. Alignment is maintained. Joint spaces are maintained. Soft tissues appear unremarkable. XR/XR hand RT 2V IMPRESSION: Normal right hand.
== END 2022-04-18 11:50 | disposition home or self-care (01) ==
LOC: HO.HMGCX 11:49
PROVIDERS: PCP Internal Medicine; Visit Provider Internal Medicine
DX: S69.91XA Unspecified injury of right wrist, hand and finger(s), initial encounter (principal)
CPT/HCPCS: 73120

== ENCOUNTER 2022-06-04 13:43 | Outpatient (REF) | payer OTHER, SELFPAY ==
--- NOTE | ~2022-06-04 | XR_ITS ---
EXAMINATION: XR SHOULDER, RIGHT CLINICAL INFORMATION: Right shoulder pain. COMPARISON: None TECHNIQUE: Three views of the right shoulder. FINDINGS: The bones and soft tissues are normal. No fracture. Glenohumeral and acromioclavicular alignment is anatomic with normal joint space. No abnormal soft tissue calcifications. XR/XR shoulder RT min 2V IMPRESSION: Unremarkable right shoulder.
--- NOTE | ~2022-06-04 | XR_ITS ---
EXAMINATION: XR CERVICAL SPINE CLINICAL INFORMATION: Right shoulder pain. COMPARISON: None TECHNIQUE: 3 views of the cervical spine were obtained. FINDINGS: The craniocervical junction is normal. The dens and atlantodental articulation are intact. The cervical vertebra have normal height and alignment. No fracture, subluxation or prevertebral soft tissue swelling. There is mild reversal of lordosis of the mildly degenerated cervical spine. At C4-C5 at C5-C6, there are findings of mild anterior disc space narrowing and small anterior vertebral osteophytes. The uncovertebral joints are mildly hypertrophied at C4-C5. The visualized lung apices are normal. XR/XR cervical spine 2V IMPRESSION: * Mild disc degenerative change at C4-C5 and C5-C6. * No fracture, malalignment or soft tissue swelling. * Mild reversal of lordosis is observed above the C5 level within the mildly degenerated C-spine.
== END 2022-06-04 13:44 | disposition home or self-care (01) ==
LOC: HO.HMGCX 13:43
PROVIDERS: PCP Internal Medicine; Visit Provider Internal Medicine
DX: M25.511 Pain in right shoulder (principal); M54.2 Cervicalgia
CPT/HCPCS: 72040; 73030

== ENCOUNTER 2022-06-18 14:05 | Outpatient (REF) | payer OTHER, SELFPAY ==
--- NOTE | ~2022-06-18 | MM_ITS ---
EXAMINATION: MM DIAGNOSTIC DIGITAL BREAST TOMOSYNTHESIS, LEFT US DIAGNOSTIC ULTRASOUND BREAST, LEFT CLINICAL INFORMATION: Palpable area of concern upper left breast marble sized for 3-4 months. Probable benign calcifications central upper outer breast. The lifetime risk of breast cancer based on the Tyrer-Cuzick Model is 6%. COMPARISON: Mammography: 03/06/2022 (BI-RADS 3), 02/28/2022 (BI-RADS 0), 02/27/2021; outside mammography 09/16/2019 ([place]). TECHNIQUE: Digital breast tomosynthesis is performed in both the craniocaudal and mediolateral oblique views along with computer-aided detection (CAD). Synthesized 2D images are generated from the tomosynthesis. Ultrasound left breast is targeted to the area of clinical concern. Grayscale imaging and color Doppler are performed without and with harmonics. Patient is able to point to area of palpable abnormality at time of imaging. FINDINGS: There are scattered areas of fibroglandular density (ACR BI-RADS breast composition Category b). Parenchymal pattern is similar to prior studies and there is no interval mass or developing density or architectural abnormality. There is no mammographic correlate for patient's clinical palpable concern. No skin thickening or coarsening of the Phu's ligaments. Some fine calcifications central upper outer breast mid depth are again noted similar to prior exam on standard mammography. These will be due for follow-up magnification views in 3-4 months. Ultrasound demonstrates no cystic or solid mass, architectural abnormality or focal duct ectasia. No skin thickening or edema tracking in soft tissue planes. There is no ultrasound correlate for patient's palpable concern. Results are discussed with the patient at time of visit. Patient should be managed based on the clinical impression. If clinically indicated, further evaluation may be considered with surgical consult. Follow-up left breast imaging in 3-4 months is recommended to reassess probable benign calcifications to include magnification views. MM/MM tomosynthesis diagnostic LT IMPRESSION: -No mammographic or ultrasound correlate for patient's clinical palpable concern. -Probable benign calcifications central upper outer breast. BI-RADS 3: Probably Benign. ASSESSMENT: BI-RADS 3: Probably Benign RECOMMENDATION: 1. Patient should be managed based on the clinical impression. If clinically indicated, further evaluation may be considered with surgical consult. Decision to proceed with biopsy should be based on clinical grounds and degree of clinical concern. 2. Left diagnostic mammography to include magnification views, due in 3-4 months. This patient's information was entered into a reminder system with a target due date for their next mammogram.
== END 2022-06-18 14:06 | disposition home or self-care (01) ==
LOC: HO.MAMMO 14:05
PROVIDERS: PCP Internal Medicine; Visit Provider Internal Medicine
DX: N63.22 Unspecified lump in the left breast, upper inner quadrant (principal)
CPT/HCPCS: 76642; 77061; 77065

== ENCOUNTER 2022-06-19 13:00 | Outpatient (RCR) | payer OTHER, SELFPAY ==
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
--- NOTE | 2022-07-31 11:28 | MHC.PT.DC ---
[facility] [address] Office [place] Office [place] Office [address] Everardo Mackay [address] [phone] F: [phone] F: [phone] F: [phone] F: [phone] Physical Therapy Discharge Report Diagnosis: Shoulder/Bicep strengthening Date of Surgery: Date of Evaluation: 06/12/22 Date of Discharge: 07/31/22 Treatments to Date: 3 Cancellations to Date: No Shows to Date: Discharge Status: Improved Function Independent with HEP Discharge Summary: 06/19/2022: Continued with postural stability with no adverse reactions. Minimal to no cues secondary to good carry over from prior sessions with form. Continues to feel relief as well with manual intervention so continued with this today. Advised continuing with HEP at home and pt with good verbal understanding. Electronically signed by: Schuyler Mendoza PT Please sign and return to therapist. Thank you for your referral.
== END 2022-07-31 11:29 | disposition home or self-care (01) ==
LOC: HO.PTCHIC 13:00
PROVIDERS: PCP Internal Medicine; Visit Provider Internal Medicine
DX: M54.2 Cervicalgia (principal); M25.511 Pain in right shoulder
CPT/HCPCS: 97110; 97140; 97162

== ENCOUNTER 2022-06-29 10:03 | Outpatient (REF) | payer OTHER, SELFPAY ==
--- NOTE | ~2022-06-29 | US_ITS ---
EXAMINATION: US RETROPERITONEAL LIMITED (RENAL ONLY) CLINICAL INFORMATION: Other microscopic hematuria. COMPARISON: Ultrasound abdomen complete 12/28/2021. Renal ultrasound 10/20/2019. TECHNIQUE: Real-time imaging of the kidneys. FINDINGS: RIGHT KIDNEY: 9.6 x 4.2 x 5.7 cm (SAG x AP x TRV). The kidney is normal in size, contour, and echogenicity. Renal cortical thickness is normal. No focal parenchymal lesions or hydronephrosis. The is a 0.3cm lower pole nonobstructing calculus. LEFT KIDNEY: 10.9 x 5.5 x 5.5 cm (SAG x AP x TRV). The kidney is normal in size, contour, and echogenicity. Renal cortical thickness is normal. No hydronephrosis. The is a 2.9cm mid simple cyst. There is a 0.3cm mid pole nonobstructing calculus. US/US renal BI IMPRESSION: 1. Bilateral nonobstructing renal calculi. 2. Left mid pole simple cyst, no further follow-up is required.
[2022-06-29 12:50] LABS: Alanine Aminotransferase 21 U/L (0-31); Albumin Level 3.9 g/dL (3.5-5.0); Alkaline Phosphatase 123 U/L (39-117); Anion Gap 16 (12-20); Aspartate Amino Transferase 19 U/L (5-31); Bilirubin Total 0.3 mg/dL (0.0-1.0); Blood Urea Nitrogen 14 mg/dL (9-16); Calcium 9.3 mg/dL (8.4-10.2); Carbon Dioxide 21 mmol/L (22-29); Chloride 109 mmol/L (96-108); Cholesterol 206 mg/dL; Estimated Glomerular Filt Rate > 60; Glucose Fasting 103 mg/dL (60-99); HDL Cholesterol 64 mg/dL; LDL Cholesterol Calculated 118 mg/dl; Sodium 142 mmol/L (135-145); Total Protein 6.9 g/dL (6.5-8.0); Triglycerides 121 mg/dL
== END 2022-06-29 10:04 | disposition home or self-care (01) ==
LOC: HO.HMGCX 10:03
PROVIDERS: Absent Provider Internal Medicine; PCP Internal Medicine
DX: Z00.01 Encounter for general adult medical examination with abnormal findings (principal); E78.9 Disorder of lipoprotein metabolism, unspecified; N23 Unspecified renal colic; R31.29 Other microscopic hematuria
CPT/HCPCS: 36415; 76775; 80053; 80061

== ENCOUNTER → 2022-07-05 14:04 | Outpatient (BNVA) | payer OTHER, SELFPAY | PROVIDERS: PCP Internal Medicine; Visit Provider Surgery | DX: N64.4 Mastodynia (principal) | CPT/HCPCS: 99202 ==

== ENCOUNTER → 2022-07-23 09:19 | Outpatient (BNVA) | payer OTHER, SELFPAY | PROVIDERS: PCP Internal Medicine; Visit Provider Urology | DX: N20.0 Calculus of kidney (principal); N28.1 Cyst of kidney, acquired | CPT/HCPCS: Q3014 ==

== ENCOUNTER 2022-07-26 08:42 | Day surgery (SDC) | payer OTHER, SELFPAY ==
[2022-07-20 14:26] VITALS: BMI 27.3
--- NOTE | 2022-07-25 12:33 | HO.ANESPROP2 ---
Documented by User: Jeanette Dumont NP 07/25/22 12:39 HPI - Anesthesia Eval Consult details Narrative: 57yo F for Colonoscopy PMFSH Active Problems Active Problems: All Active Problems (Updated 07/23/22 @ 10:13 by Tri Gonzales MD) Renal cyst, acquired, left (Acute) Bilateral kidney stones (Acute) Bilateral mastodynia (Acute) Strep throat (Acute) Anxiety, generalized (Acute) Breast lump on left side at 10 o'clock position (Acute) Neck pain (Acute) Muscle strain (Acute) Shoulder pain, right (Acute) Recurrent boils (Acute) Renal calculi (Acute) Nocturia (Acute) Hand injury (Acute) Microscopic hematuria (Acute) Abnormal mammogram (Acute) Breast calcification, left (Acute) Weight loss (Acute) Nausea (Acute) Abdominal pain (Acute) Easy bruising (Chronic) Blood in urine (Acute) Renal colic on left side (Acute) Epigastric abdominal pain (Acute) Perimenopausal symptoms (Acute) Urinary retention (Acute) Pelvic pain (Acute) Bladder disorder (Acute) Lumbar pain (Acute) Encounter for surveillance of transdermal patch hormonal contraceptive device (Acute) PVC (premature ventricular contraction) (Acute) PAC (premature atrial contraction) (Acute) Neck muscle spasm (Acute) Chlamydia contact, treated (Acute) Weight gain due to medication (Acute) Weight gain (Acute) IBS (irritable colon syndrome) (Acute) Breast screening (Acute) Colon cancer screening (Acute) Routine gynecological examination (Acute) Heart palpitations (Acute) Encounter for general adult medical examination with abnormal findings (Acute) Breast pain in female (Acute) Lateral epicondylitis of both elbows (Acute) Polyarthralgia (Acute) Lipid disorder (Acute) Change in mole (Acute) Strain of cervical portion of both trapezius muscles (Acute) Myalgia (Acute) Hot flashes (Acute) Vitamin D deficiency (Acute) Fibromyalgia (Acute) Osteoarthritis (Acute) Chronic GERD (Acute) Depression, major, recurrent (Acute) Past Medical History Medical History Chronic GERD Depression, major, recurrent Fibromyalgia Hot flashes Microscopic hematuria Osteoarthritis Vitamin D deficiency Family History Family History Father No problems noted. Mother Asthma Dementia Alzheimer's disease Paternal Aunt Lung cancer Brother No problems noted. Brother No problems noted. Brother No problems noted. Sister No problems noted. Sister No problems noted. Sister No problems noted. Other Mental health disorder Surgical History Surgical History H/O colonoscopy History of hysterectomy History of surgery Social History Social History Household Members: Significant Other and Children Household Members Other:: 2 children Housing: House Are you a primary pharmacy customer care specialist to a significant other at home: No Do you presently have visiting nurse or other home services: No Alcohol intake: never Patient Tobacco Use Status: Never used Tobacco e-Cigarette/Vaping Use: Never Used Have you been hit, kicked, punched, or otherwise hurt by someone within the past year? If so, by whom?: No Are you DNR?: No Advance Directives: No Advance Directives Information Provided: Yes Advance Directives on File: No Recently lost weight without trying: No Eating poorly because of decreased appetite: No Nutrition Risks: No Nutritional Risk service: No Current occupational status: unemployed Cognitive needs: No Hearing needs: No Vision needs: Yes Meds Allergies Allergy/AdvReac Type Severity Reaction Status Date / Time cigarette smoke Allergy Intermediate migraines Verified 07/23/22 09:18 latex Allergy Intermediate Rash Verified 07/23/22 09:18 trazodone Allergy Intermediate palpitation Verified 07/23/22 09:18 s Penicillins AdvReac Intermediate Abdominal Verified 07/23/22 09:18 Pain cats Allergy Intermediate eyes Uncoded 07/20/22 14:19 itching and burning Home Medications Medication Instructions Recorded Confirmed Last Taken Type magnesium 250 mg tablet 250 mg PO BID 11/30/20 07/23/22 Unknown History mecobalamin (vitamin B12) 1,000 1,000 mcg PO DAILY 11/30/20 07/23/22 Unknown History mcg chewable tablet mirabegron 25 mg tablet,extended 25 mg PO DAILY 11/30/20 07/23/22 Unknown History release 24 hr (Myrbetriq) estradiol 0.05 mg/24 hr semiweekly 1 patch transdermal 2XW 03/16/22 07/23/22 Unknown History transdermal patch Exam Exam Date and Time: July 25, 2022 1233 Height,Weight and Vital Signs: Height 5 ft 4 in Weight 72.121 kg Pertinent Lab Results Pertinent Lab Results: Laboratory Tests 02/21/22 06/29/22 14:40 10:17 WBC 7.7 Hgb 14.1 Hct 43.3 Plt Count 379 Sodium 142 Potassium 4.0 Chloride 109 H Carbon Dioxide 21 L BUN 14 Creatinine 0.72 Narrative Narrative: ECHO 2020 Conclusions: - The left ventricular systolic function is normal.? The ? calculated ejection fraction is 69% by biplane method. ? - No obvious valvular pathology seen on this study.? ? Holter 2020 Total monitoring time 6 days and 21 hours.? Underlying rhythm is sinus.? Minimum heart rate 46/Min.? Maximum 169/Min.? Average 80/Min.? No atrial fibrillation or flutter.? No AV blocks, pauses.? 2 supraventricular episodes.? Longest 9 beats.? Rare supraventricular ectopy with a burden of 0.01%.? Very rare ventricular ectopy with a burden of less than 0.01%.? No patient events. Assessment and Plan Assessment Anesthesia Assessment: Chart Reviewed Documented by User: Krista Gar MD 07/26/22 10:06 [facility] Past Medical History Medical History Chronic GERD Depression, major, recurrent Fibromyalgia Hot flashes Microscopic hematuria Osteoarthritis Vitamin D deficiency Family History Family History Father No problems noted. Mother Asthma Dementia Alzheimer's disease Paternal Aunt Lung cancer Brother No problems noted. Brother No problems noted. Brother No problems noted. Sister No problems noted. Sister No problems noted. Sister No problems noted. Other Mental health disorder Surgical History Surgical History H/O colonoscopy History of hysterectomy History of surgery History of Problems with Anesthesia: No Social History Social History Household Members: Significant Other and Children Household Members Other:: 2 children Housing: House Are you a primary pharmacy customer care specialist to a significant other at home: No Do you presently have visiting nurse or other home services: No Alcohol intake: never Patient Tobacco Use Status: Never used Tobacco e-Cigarette/Vaping Use: Never Used Have you been hit, kicked, punched, or otherwise hurt by someone within the past year? If so, by whom?: No Are you DNR?: No Advance Directives: No Advance Directives Information Provided: Yes Advance Directives on File: No Recently lost weight without trying: No Eating poorly because of decreased appetite: No Nutrition Risks: No Nutritional Risk service: No Current occupational status: unemployed Cognitive needs: No Hearing needs: No Vision needs: Yes Meds Allergies Allergy/AdvReac Type Severity Reaction Status Date / Time cigarette smoke Allergy Intermediate migraines Verified 07/23/22 09:18 latex Allergy Intermediate Rash Verified 07/23/22 09:18 trazodone Allergy Intermediate palpitation Verified 07/23/22 09:18 s Penicillins AdvReac Intermediate Abdominal Verified 07/23/22 09:18 Pain cats Allergy Intermediate eyes Uncoded 07/20/22 14:19 itching and burning Home Medications Medication Instructions Recorded Confirmed Last Taken Type magnesium 250 mg tablet 250 mg PO BID 11/30/20 07/23/22 Unknown History mecobalamin (vitamin B12) 1,000 1,000 mcg PO DAILY 11/30/20 07/23/22 Unknown History mcg chewable tablet mirabegron 25 mg tablet,extended 25 mg PO DAILY 11/30/20 07/23/22 Unknown History release 24 hr (Myrbetriq) estradiol 0.05 mg/24 hr semiweekly 1 patch transdermal 2XW 03/16/22 07/23/22 Unknown History transdermal patch Exam Airway Mallampati Class: II TM Dist: >3cm Neck ROM: Full Loose/Missing/Broken Teeth: No Heart: RRR Lungs: CTA Assessment and Plan Assessment Anesthesia Assessment: Anesthesia Plan Discussed Final Anesthetic Review History of Problems with Anesthesia: No NPO: Yes ASA Class: II Final Preanesthetic Review: Meds/Allgs Chart Reviewed, Consent Obtained/Reviewed and Anes Risks/Benef Reviewed Patient Risk: Low Procedure Risk: Intermediate Anesthetic Plan Anesthetic Plan: MAC: Disposition: Standard PACU
--- NOTE | 2022-07-26 09:15 | MHC.SHP ---
Pre-Procedural Eval Section A Date of Service: 07/26/22 Section B Chief Complaint: screening Details of Present Illness: hx of reflux and GERD Relevant Family History (Specify if Yes): No Relevant Social History: None Present Medications: see Short Stay Collaborative assessment Medical History: Significant History (Chronic GERD Depression, major, recurrent Fibromyalgia Hot flashes Microscopic hematuria Osteoarthritis Vitamin D deficiency) History of Previous Operations: Relevant previous surgery/procedure and date(s) (H/O colonoscopy History of hysterectomy History of surgery) Allergies: Allergies Allergy/AdvReac Type Severity Reaction Status Date / Time cigarette smoke Allergy Intermediate migraines Verified 07/23/22 09:18 latex Allergy Intermediate Rash Verified 07/23/22 09:18 trazodone Allergy Intermediate palpitation Verified 07/23/22 09:18 s Penicillins AdvReac Intermediate Abdominal Verified 07/23/22 09:18 Pain cats Allergy Intermediate eyes Uncoded 07/20/22 14:19 itching and burning Review of Systems Sugical H&P ROS: Negative: Constitution, Cardiovascular, Respiratory, Neurological, Psychiatric, Hem-Onc, Allergic/Immunologic, Gastrointestinal, Genitourinary, Musculoskeletal, Integumentary, Endocrine and Eyes/Ears/Nose/Throat Exam Surgical H&P Exam: Normal: HEENT, Normal: Heart, Normal: Lungs, Normal: Extremities, Normal: Abdomen, Normal: Skin and Normal: Neurological Plan Diagnosis/Plan: Unchanged I have reviewed the history and physical and performed a pertinent physical examination on my patient. No changes have occurred unless specified.
[2022-07-26 09:16] VITALS: BP 110/63; PULSE 90; RESP 16; TEMP 36.5; O2SAT 98
[2022-07-26] MEDS: Lactated Ringers 1,000 ML 100 ML IVCONT (09:23)
--- NOTE | 2022-07-26 09:24 | PC.NURSE ---
pain to right hand after iv insertion. applied ice pack to site for comfort.
--- NOTE | 2022-07-26 10:28 | W.PM.OPN ---
Operative Note Operative Note Date of Service: 07/26/22 Narrative: Operative Information Procedure Description: EGD, Colonoscopy Indication: GERD< screening colonoscopy Anesthesia: MAC FLEXIBLE TRANSORAL UPPER GASTROINTESTINAL ENDOSCOPY AND COLONOSCOPY PROCEDURE NOTE UPPER ENDOSCOPY Consent: Indications for the procedure and potential complications of bleeding, perforation, reaction to medications and missed diagnosis were discussed with the patient and informed consent was obtained. Instrument: Olympus GIF H 190 J mid size upper endoscope Monitoring: Vital signs and clinical assessment, continuous EKG monitoring, Pulse oximetry, Carbon Dioxide monitoring and blood pressure monitoring were done throughout the procedure. Procedure: The patient was placed in the left lateral decubitis position and pre-procedure medications were administered and a bite block was placed. The endoscope was inserted into the mouth and advanced under direct vision to the third part of duodenum. A careful inspection was made as the upper endoscope was withdrawn including a retroflexed examination of the proximal stomach; Findings and interventions are described below. Findings: Larynx:normal Esophagus: GE junction at 34 cm, diaphragm hiatus at 36 cm, consistent with 2 cm sliding hiatal hernia. Non obstructive schatzki ring noted with mild esophagitis, bx taken from GEJ and distal esophagus. Stomach: Normal mucosa. Biopsies were obtained. Grade 2 flap valve on retroflexed examination of the cardia. Duodenum: Normal bulb and descending duodenum, Intervention: Biopsies as noted above COLONOSCOPY Instrument: Olympus variable stiffness pediatric scope 190L Colonoscopy Monitoring: Vital signs and clinical assessment, continuous EKG monitoring, Pulse oximetry, Carbon Dioxide monitoring and blood pressure monitoring were done throughout the procedure. Colon withdrawal time was 10 minutes. Procedure: The patient was placed in the left lateral decubitis position and pre-procedure medications were administered. After a digital rectal examination of the ano-rectum, the video colonoscope was inserted into the rectum and advanced through the colon to the cecum/TI. The colonoscope was slowly withdrawn in a retrograde panoramic fashion and the colon mucosa was carefully examined including a retroflexed view of the rectum. Findings and interventions are described below. Procedure Difficulty: moderate Findings: Terminal Ileum-normal Cecum:normal Ascending Colon: normal Transverse Colon -normal Descending Colon:normal Sigmoid Colon: normal Rectum: Retroflexion with small internal hemorrhoids, grade I Anorectum - normal Colon preparation: [place] Bowel Preparation Scale Right colon; 2 Transverse colon: 2 Left colon; 2 (0 = Unprepared colon segment with mucosa not seen due to solid stool that cannot be cleared. 1 = Portion of mucosa of the colon segment seen, but other areas of the colon segment not well seen due to staining, residual stool and/or opaque liquid. 2 = Minor amount of residual staining, small fragments of stool and/or opaque liquid, but mucosa of colon segment seen well. 3 = Entire mucosa of colon segment seen well with no residual staining, small fragments of stool or opaque liquid) Impression and Post Procedure Diagnosis: Endoscopy Findings: sliding hiatal hernia esophagitis schatzki ring Colonoscopy Findings: internal hemorrhoids Plan: Await Pathology results Repeat Colonoscopy in 10 years or earlier if clinically indicated High fiber diet leaflet avoid straining at stool, epsom salts and sitz bath, anusol supps or cream check PPI compliance, can increase dose if needed, GERD precautions and lifestyle advice. Above findings were reviewed with the patient and relevant handouts were provided if indicated.
[2022-07-26 11:07] VITALS: BP 109/65; PULSE 101; RESP 16; TEMP 36.4; O2SAT 97
[2022-07-26 11:22] VITALS: BP 112/82; PULSE 78; RESP 16; O2SAT 97
[2022-07-26 11:37] VITALS: BP 123/75; PULSE 67; RESP 18; TEMP 36.3; O2SAT 99
== END 2022-07-26 12:12 | disposition home or self-care (01) ==
PROVIDERS: PCP Internal Medicine; Visit Provider Internal Medicine Gastroenterology
PROC: (CPT 43239; principal; 2022-07-26 10:10)
DX: Z12.11 Encounter for screening for malignant neoplasm of colon (principal); K64.0 First degree hemorrhoids; K21.00 Gastro-esophageal reflux disease with esophagitis, without bleeding; K22.2 Esophageal obstruction; K29.60 Other gastritis without bleeding; K44.9 Diaphragmatic hernia without obstruction or gangrene; F33.9 Major depressive disorder, recurrent, unspecified; M79.7 Fibromyalgia; Z79.899 Other long term (current) drug therapy; Z88.0 Allergy status to penicillin; Z88.8 Allergy status to other drugs, medicaments and biological substances; Z91.040 Latex allergy status; E55.9 Vitamin D deficiency, unspecified; M19.90 Unspecified osteoarthritis, unspecified site
CPT/HCPCS: 43239; G0121; 88305; 88342

== ENCOUNTER → 2022-08-06 14:06 | Outpatient (BNVA) | payer OTHER, SELFPAY | PROVIDERS: PCP Internal Medicine; Referring Provider Internal Medicine; Visit Provider Internal Medicine Gastroenterology | DX: G47.30 Sleep apnea, unspecified (principal) | CPT/HCPCS: 99212 ==

== ENCOUNTER 2022-08-16 10:16 | Outpatient (REF) | payer OTHER, SELFPAY ==
--- NOTE | ~2022-08-16 | CT_ITS ---
EXAMINATION: CT ABDOMEN AND PELVIS WITHOUT CONTRAST CLINICAL INFORMATION: Renal calculus. COMPARISON: Renal ultrasound of 06/29/2022. TECHNIQUE: Multidetector volumetric imaging was performed from the superior aspect of the liver through the pubic symphysis. Sagittal and coronal reformatted images were obtained on the technologist's workstation. This CT examination was performed using dose optimization techniques as appropriate, variously including the following: *Automated exposure control *Adjustment of mA and/or kV according to patient size (this includes techniques or standardized protocols for targeted exams where dose is matched to indication/reason for exam; i.e. extremities or head) *Use of iterative reconstruction technique DLP: 609 mGy-cm FINDINGS: LUNG BASES: The visualized lung bases are unremarkable. No pleural or pericardial effusion. Heart normal size. LIVER, GALLBLADDER, AND BILIARY TREE: The liver is normal in size, shape, and attenuation. No focal hepatic lesion or biliary ductal dilatation is present. The gallbladder is unremarkable with no evidence of radiopaque gallstones, gallbladder wall thickening, or obvious pericholecystic inflammatory changes. PANCREAS: Unremarkable. No mass or peripancreatic inflammatory change. SPLEEN: Unremarkable. ADRENAL GLANDS: Unremarkable. KIDNEYS AND URETERS: Right kidney: There is a 3 mm nonobstructing calculus within the upper pole. There is a 2 mm nonobstructing calculus within the upper pole. There is a 1 mm calculus seen in the interpolar region. There is a 1 mm nonobstructing calculus seen within the lower pole. No hydronephrosis. No abnormal mass lesion. Ureter appears unremarkable. Left kidney: No hydronephrosis or renal mass identified. Ureter appears unremarkable. There are multiple nonobstructing calculi within the left kidney the largest being 3 mm within the upper pole. There is a 2.7 cm right renal cyst. BLADDER: Unremarkable. GASTROINTESTINAL TRACT: No dilated loops of large or small bowel are evident. No free air or free fluid is seen. No pericolonic inflammatory change is noted. Appendix is not identified. ABDOMINAL WALL: No significant hernia is appreciated. LYMPH NODES: No lymphadenopathy appreciated. VASCULAR: Unremarkable. PELVIC VISCERA: There is a 2.4 x 1.8 cm right adnexal cyst. OSSEOUS STRUCTURES: No acute suspicious bony lesion identified. CT/CT abdomen pelvis wo IV con IMPRESSION: Bilateral nephrolithiasis without evidence of obstructive uropathy. Fleischner guidelines were followed.
== END 2022-08-16 10:17 | disposition home or self-care (01) ==
LOC: HO.CT 10:16
PROVIDERS: Visit Provider Urology
DX: N20.0 Calculus of kidney (principal)
CPT/HCPCS: 74176

== ENCOUNTER → 2022-08-21 12:51 | Outpatient (BNVA) | payer OTHER, SELFPAY | PROVIDERS: PCP Internal Medicine; Visit Provider Internal Medicine Gastroenterology | DX: Z13.89 Encounter for screening for other disorder (principal) ==

== ENCOUNTER 2022-08-21 15:33 | Outpatient (REF) | payer OTHER, SELFPAY ==
[2022-08-23 11:37] LABS: H Pylori Breath Test Negative (Negative)
== END 2022-08-21 15:34 | disposition home or self-care (01) ==
LOC: HO.LNP 15:33
PROVIDERS: Visit Provider Internal Medicine Gastroenterology
DX: Z11.0 Encounter for screening for intestinal infectious diseases (principal)
CPT/HCPCS: 83013

== ENCOUNTER → 2022-09-03 11:45 | Outpatient (BNVA) | payer OTHER, SELFPAY | PROVIDERS: PCP Internal Medicine; Referring Provider Internal Medicine; Visit Provider Internal Medicine Gastroenterology | DX: K44.9 Diaphragmatic hernia without obstruction or gangrene (principal); K21.9 Gastro-esophageal reflux disease without esophagitis | CPT/HCPCS: 99212 ==

== ENCOUNTER → 2022-09-06 14:12 | Outpatient (BNVA) | payer OTHER, SELFPAY | PROVIDERS: PCP Internal Medicine; Referring Provider Internal Medicine; Visit Provider Surgery | DX: N63.22 Unspecified lump in the left breast, upper inner quadrant (principal); E55.9 Vitamin D deficiency, unspecified | CPT/HCPCS: 99212 ==

== ENCOUNTER → 2022-09-24 14:44 | Outpatient (BNVA) | payer OTHER, SELFPAY | PROVIDERS: PCP Internal Medicine; Visit Provider Internal Medicine Gastroenterology | DX: R10.13 Epigastric pain (principal); R11.2 Nausea with vomiting, unspecified | CPT/HCPCS: 99212 ==

== ENCOUNTER 2022-10-01 13:30 | Outpatient (REF) | payer OTHER, SELFPAY ==
[2022-10-01 14:14] LABS: MANUAL DIFF FLAG NO
[2022-10-01 15:14] LABS: Basophils Absolute Auto 0.1 X10*3/uL (0.0-0.2); Basophils Percent Auto 1.5 % (0-2); Eosinophils Absolute Auto 0.2 X10*3/uL (0.0-0.4); Eosinophils Percent Auto 3.2 % (0-4); Hematocrit 43.5 % (37.0-47.0); Hemoglobin 14.1 g/dl (12.0-16.0); Imm Gran Abs Auto 0.01 X10*3/uL (0.00-0.03); Imm Gran Pct Auto 0.1 % (0.0-0.4); Lymphocytes Absolute Auto 2.5 X10*3/uL (1.2-4.9); Lymphocytes Percent Auto 33.5 % (20-40); Mean Corpuscular HGB Conc 32.4 g/dl (31.0-35.0); Mean Corpuscular Hemoglobin 30.3 pg (27.0-33.0); Mean Corpuscular Volume 93.5 fL (80.0-98.0); Mean Platelet Volume 10.9 fL (9.4-12.3); Monocytes Absolute Auto 0.7 X10*3/uL (0.1-1.2); Monocytes Percent Auto 9.2 % (2-11); Neutrophils Percent Auto 52.5 % (45-73); Platelet Count 382 X10*3/uL (160-400); Red Blood Count 4.65 X10*6/uL (4.20-5.50); Red Cell Distribution Width 12.6 % (11.0-16.0); White Blood Count 7.5 X10*3/uL (4.8-10.8)
[2022-10-01 15:22] LABS: Estimated Average Glucose 100 mg/dL; Hemoglobin A1c % 5.1 %
[2022-10-01 15:56] LABS: Alanine Aminotransferase 19 U/L (0-31); Alkaline Phosphatase 105 U/L (39-117); Anion Gap 13 (12-20); Aspartate Amino Transferase 20 U/L (5-31); Bilirubin Total 0.4 mg/dL (0.0-1.0); Blood Urea Nitrogen 17 mg/dL (9-16); Calcium 9.6 mg/dL (8.4-10.2); Carbon Dioxide 24 mmol/L (22-29); Chloride 108 mmol/L (96-108); Estimated Glomerular Filt Rate > 60; Glucose Random 83 mg/dL (60-115); Potassium 4.9 mmol/L (3.3-5.1); Sodium 140 mmol/L (135-145); Total Protein 6.9 g/dL (6.5-8.0)
[2022-10-05 05:13] LABS: Gastrin <15 pg/mL (<=100)
== END 2022-10-01 13:31 | disposition home or self-care (01) ==
LOC: HO.LAB 13:30
PROVIDERS: PCP Internal Medicine; Visit Provider Surgery
DX: K44.9 Diaphragmatic hernia without obstruction or gangrene (principal); G47.30 Sleep apnea, unspecified; K21.9 Gastro-esophageal reflux disease without esophagitis; R13.10 Dysphagia, unspecified; R10.13 Epigastric pain; N32.9 Bladder disorder, unspecified; R10.2 Pelvic and perineal pain; Z79.899 Other long term (current) drug therapy
CPT/HCPCS: 36415; 80053; 82941; 83036; 84134; 85025; 99202

== ENCOUNTER 2022-10-08 13:39 | Outpatient (REF) | payer OTHER, SELFPAY ==
--- NOTE | ~2022-10-08 | MM_ITS ---
EXAMINATION: MM DIAGNOSTIC DIGITAL BREAST TOMOSYNTHESIS, LEFT CLINICAL INFORMATION: Short interval follow-up probable benign calcifications central upper outer breast mid depth. The lifetime risk of breast cancer based on the Tyrer-Cuzick Model is 6%. COMPARISON: Mammography: 06/18/2022, 03/06/2022, 02/28/2022 (BI-RADS 0), and other prior exams. TECHNIQUE: Digital breast tomosynthesis is performed in both the craniocaudal and mediolateral oblique views along with computer-aided detection (CAD). Synthesized 2D images are generated from the tomosynthesis. Additional magnification left CC and magnification left ML views are obtained. FINDINGS: There are scattered areas of fibroglandular density (ACR BI-RADS breast composition Category b). The calcifications for follow-up mid central upper outer breast are similar to prior diagnostic exam. They will be reassessed again at annual bilateral mammography, due in 6 months. The parenchymal pattern is similar to prior studies and there is no developing density or interval significant mass or architectural abnormality. The axilla and skin contours are unremarkable. Results are provided to the patient at time of visit by the technologist. MM/MM tomosynthesis diagnostic LT IMPRESSION: -Left breast calcifications for follow-up are similar to prior diagnostic exam. ASSESSMENT: BI-RADS 3: Probably Benign RECOMMENDATION: Diagnostic mammography at time of annual bilateral exam, due in 6 months. This patient's information was entered into a reminder system with a target due date for their next mammogram.
== END 2022-10-08 13:40 | disposition home or self-care (01) ==
LOC: HO.MAMMO 13:39
PROVIDERS: PCP Internal Medicine; Visit Provider Internal Medicine
DX: R92.1 Mammographic calcification found on diagnostic imaging of breast (principal)
CPT/HCPCS: 77061; 77065

== ENCOUNTER → 2022-10-17 12:40 | Outpatient (BNVA) | payer OTHER, SELFPAY | PROVIDERS: PCP Internal Medicine; Visit Provider Urology | DX: N20.0 Calculus of kidney (principal); N28.1 Cyst of kidney, acquired; R31.29 Other microscopic hematuria; Z79.899 Other long term (current) drug therapy | CPT/HCPCS: 99212 ==

== ENCOUNTER → 2022-10-23 10:20 | Outpatient (BNVA) | payer OTHER, SELFPAY | PROVIDERS: PCP Internal Medicine; Visit Provider Nurse Practitioner Family | DX: R06.83 Snoring (principal); R40.0 Somnolence; R06.81 Apnea, not elsewhere classified | CPT/HCPCS: 99212 ==

== ENCOUNTER → 2022-11-05 15:32 | Outpatient (REF) | payer OTHER, SELFPAY | LOC: HO.SL 15:32 | PROVIDERS: PCP Internal Medicine; Visit Provider Nurse Practitioner Family | DX: K59.00 Constipation, unspecified (principal) | CPT/HCPCS: 99212 ==

== ENCOUNTER 2022-11-16 08:41 | Outpatient (REF) | payer OTHER, SELFPAY ==
--- NOTE | ~2022-11-16 | FL_ITS ---
EXAMINATION: FL UPPER GI SERIES CLINICAL INFORMATION: Diaphragmatic hernia without obstruction. COMPARISON: None available. TECHNIQUE: Routine upper GI air-contrast study was performed in upright and lying position. FINDINGS: Following oral administration of thick barium and effervescent granules in upright view there is normal propagation of bolus from the oral cavity through the pharynx and esophagus and into stomach without any evidence of obstruction, narrowing or stricture. The mucosal pattern of the esophagus is normal. On placing supine and prone lying, there is a small hiatal hernia with large gastroesophageal reflux into the upper esophagus/pharyngeal region. Otherwise the course, caliber and peristalsis of stomach, duodenal bulb and the sweep are normal. The mucosal pattern of the stomach and the duodenum is normal. FLUOROSCOPY TIME: 1.3 minutes. DOSE AREA PRODUCT: 22.658 uGy-m2 (microgray-meter squared) FL/FL upper GI series IMPRESSION: Small hiatal hernia with a large gastroesophageal reflux into the upper esophagus/pharyngeal region.
== END 2022-11-16 08:42 | disposition home or self-care (01) ==
LOC: HO.XRAY 08:41
PROVIDERS: PCP Internal Medicine; Visit Provider Surgery
DX: K44.9 Diaphragmatic hernia without obstruction or gangrene (principal); K21.9 Gastro-esophageal reflux disease without esophagitis; G47.30 Sleep apnea, unspecified
CPT/HCPCS: 74240

== ENCOUNTER → 2022-11-27 13:24 | Outpatient (BNVA) | payer OTHER, SELFPAY | PROVIDERS: PCP Internal Medicine; Visit Provider Surgery | DX: K44.9 Diaphragmatic hernia without obstruction or gangrene (principal); K21.9 Gastro-esophageal reflux disease without esophagitis; G47.30 Sleep apnea, unspecified | CPT/HCPCS: 99212 ==

== ENCOUNTER → 2022-12-07 15:35 | Outpatient (BNVA) | payer OTHER, SELFPAY | PROVIDERS: PCP Internal Medicine; Visit Provider Urology | DX: N20.0 Calculus of kidney (principal); N28.1 Cyst of kidney, acquired; R82.994 Hypercalciuria | CPT/HCPCS: Q3014 ==

== ENCOUNTER → 2022-12-24 13:50 | Outpatient (BNVA) | payer OTHER, SELFPAY | PROVIDERS: PCP Internal Medicine; Visit Provider Nurse Practitioner Family | DX: R06.83 Snoring (principal); R40.0 Somnolence; R06.81 Apnea, not elsewhere classified | CPT/HCPCS: 99212 ==

== ENCOUNTER → 2023-01-03 20:30 | Outpatient (REF) | payer OTHER, SELFPAY | LOC: HO.SL 20:30 | PROVIDERS: PCP Internal Medicine; Visit Provider Nurse Practitioner Family | DX: Z13.89 Encounter for screening for other disorder (principal) ==

== ENCOUNTER 2023-03-14 14:52 | Outpatient (AMB) | payer OTHER, SELFPAY ==
--- NOTE | 2023-03-14 14:56 | MHC.OFFVIS ---
Intake Vital Signs 03/14/23 15:14 Height 5 ft 4 in Weight 167 lb BMI 28.7 BP 132/85 Blood Pressure Location Lt brachial Position Sitting Pulse 67 Intake Visit Reasons: 6 mth breast exam, HX Left breast lump Intake Note: Patient is seen in office for 6 month follow up visit, breast exam. Patient c/o: concern about the lump on the left breast, admits to pain, discomfort, lump has increase in size, paternal aunt recently dx with breast cancer and concern would like to have a biopsy on her lump. Right breast feels sensitive to the touch, denies any other concerns Ip Litigation Associate Required: No Accompanied by: Other Relationship Allergies cat dander [cats] Allergy (Intermediate, Verified 03/14/23 15:02) Itchy Eyes and burning cigarette smoke Allergy (Intermediate, Verified 03/14/23 15:02) migraines latex Allergy (Intermediate, Verified 03/14/23 15:02) Rash trazodone Allergy (Intermediate, Verified 03/14/23 15:02) palpitations Penicillins Adverse Reaction (Intermediate, Verified 03/14/23 15:02) Abdominal Pain tamsulosin Allergy (Severe, Uncoded 03/14/23 15:02) Dizziness Medication List - Last Reconciled 03/19/23 by Tr Lopez MD [Adult Sanitary Wipes As directed] cholecalciferol (vitamin D3) 25 mcg PO DAILY 90 days erythromycin 0.5 inches ophthalmic (eye) BID esomeprazole magnesium 40 mg PO DAILY estradiol 1 patch transdermal 2XW gabapentin 300 mg PO BEDTIME 90 days magnesium 250 mg PO BID mecobalamin (vitamin B12) 1,000 mcg PO DAILY naproxen 250 mg PO BID PRN omega 5-qwv-gyt-fish oil 60-90-500 mg (Fish Oil) 1 cap PO DAILY [Poise incontinence pads Requires poise due to allergies. NS] prednisone 20 mg PO DAILY 5 days pyridoxine (vitamin B6) 100 mg PO DAILY sucralfate 10 mL PO BID venlafaxine ER 150 mg PO BEDTIME 90 days HPI HPI Comments History of Present Illness Details [age] year old female patient returning to the office for follow-up examination of a left breast lump. She was previously evaluated on 07/05/2022 for similar complaint. Since her last visit she admits to continued pain at the left breast at the upper inner quadrant. She reports that a paternal aunt was recently diagnosed with breast cancer which raises her concerns. She denies any palpable lumps in the right breast. The lump was 1st identified in May 2022 she reports a prior history of breast cysts and breast lumps but denies a prior history of breast cancer. She is with 1 miscarriage. Previous mammogram and ultrasound revealed no suspicious findings in either breast. On her previous examination mild fibrocystic change was identified at the area of palpable abnormality. No discrete mass could be appreciated. Right breast revealed no suspicious findings. She returns today for follow-up examination. She underwent left breast mammogram on 10/08/2022. She was found to have low suspicion calcifications in the left breast and short-term follow-up diagnostic bilateral mammograms were recommended scheduled on 04/12/2023. [facility] Medical History Chronic GERD Depression, major, recurrent Fibromyalgia Hot flashes Microscopic hematuria Osteoarthritis Vitamin D deficiency Surgical History H/O colonoscopy History of esophagogastroduodenoscopy (EGD) History of hysterectomy History of surgery Family History Father No problems noted. Mother Asthma Dementia Alzheimer's disease Paternal Aunt Lung cancer Breast cancer Brother No problems noted. Brother No problems noted. Brother No problems noted. Sister No problems noted. Sister No problems noted. Sister No problems noted. Paternal Aunt Breast cancer, Onset Age: 70 Other Mental health disorder Social History Household Members: Significant Other and Children Household Members Other:: 2 children Housing: House Are you a primary career development coordinator to a significant other at home: No Do you presently have visiting nurse or other home services: No Alcohol intake: never Patient Tobacco Use Status: Never used Tobacco e-Cigarette/Vaping Use: Never Used service: No Current occupational status: unemployed Cognitive needs: No Hearing needs: No Vision needs: Yes Female Reproductive History Menstrual Age of Menarche: 15 Review of Systems Const All systems reviewed & are unremarkable except as noted in HPI and below Denies nipple discharge Skin/Breast Reports breast pain, Reports breast mass, Denies changing lesions, Denies nipple discharge and Denies erythema Tom/Lymph Denies lymphadenopathy Physical Exam Vital Signs: Last Vital Signs Pulse 67 03/14/23 15:14 BP 132/85 03/14/23 15:14 BMI result Body Mass Index 28.7 Const General: cooperative and no acute distress Nutritional Appearance: well nourished Orientation/consciousness: patient oriented x3 Limitations: no limitations HEENT Head: Yes normocephalic and Yes atraumatic Ears: hearing grossly normal bilaterally Chest Other: Left breast again reveals mild fibrocystic changes specially in the area of increased tenderness located at the 10 o'clock position left breast, unchanged from prior examination. Other areas of tenderness were noted in the upper outer quadrant and lower outer quadrant which felt similar with fibrocystic change. No discrete mass appreciated. No overlying skin changes, nipple discharge, or enlarged lymph nodes are appreciated. Right breast revealed minimal fibrocystic change with tenderness to palpation in the lower outer and lower inner quadrants. No suspicious mass, skin change, nipple discharge, or enlarged lymph nodes. Chest/axillae images: 1. Area of tenderness left breast Resp Effort & Inspection: normal respiratory effort, no audible wheezes, no cough and no respiratory distress Cardio Jugular venous distension: no JVD GI Inspection: Yes normal to inspection Skin Other: Warm, dry, no rash Neuro General: patient oriented x3 Extrem General: Yes no clubbing, cyanosis or edema Assessment & Plan Assessment & Plan (1) Bilateral mastodynia: Code(s): N64.4 - Mastodynia Plan 57-year-old female patient returning for follow-up examination for left breast pain at the upper inner quadrant. Examination today again reveals an area of fibrocystic change without a discrete mass benign identified. Findings are unchanged from her prior examination. She is due for her annual bilateral mammography scheduled for 04/12/2023. I recommended she return following this mammogram to review the results and discuss treatment options. She expressed understanding and agrees with the plan. Coding Level of Care Code Est Pt Level 3 (95761) Diagnoses Bilateral mastodynia N64.4
[2023-03-14 15:14] VITALS: BP 132/85; PULSE 67; BMI 28.7
== END 2023-03-14 15:21 | disposition home or self-care (01) ==
PROVIDERS: PCP Internal Medicine; Visit Provider Surgery
DX: N64.4 Mastodynia (principal)
CPT/HCPCS: 99213

== ENCOUNTER → 2023-03-14 14:52 | Outpatient (BNVA) | payer OTHER, SELFPAY | PROVIDERS: PCP Internal Medicine; Visit Provider Surgery | DX: N64.4 Mastodynia (principal) | CPT/HCPCS: 99212 ==

== ENCOUNTER 2023-03-20 14:27 | Outpatient (AMB) | payer OTHER, SELFPAY ==
[2023-03-20 14:31] VITALS: BP 116/80; PULSE 73; O2SAT 95; BMI 28.7
--- NOTE | 2023-03-20 14:31 | MHC.PC.OV ---
Vital Signs 03/20/23 14:31 Height 5 ft 4 in Weight 167 lb BMI 28.7 BP 116/80 Blood Pressure Location Rt brachial Position Sitting Pulse 73 Pulse Source Pulse Oximeter Pulse Oximetry (%) 95 Oxygen Delivery Method Room Air Intake Visit Reasons: Follow up on burning in both eyes Allergies cat dander [cats] Allergy (Intermediate, Verified 03/20/23 14:32) Itchy Eyes and burning cigarette smoke Allergy (Intermediate, Verified 03/20/23 14:32) migraines latex Allergy (Intermediate, Verified 03/20/23 14:32) Rash trazodone Allergy (Intermediate, Verified 03/20/23 14:32) palpitations Penicillins Adverse Reaction (Intermediate, Verified 03/20/23 14:32) Abdominal Pain tamsulosin Allergy (Severe, Uncoded 03/14/23 15:02) Dizziness Medication List - Last Reconciled 03/20/23 by Gaudencio Ballard MD [Adult Sanitary Wipes As directed] cholecalciferol (vitamin D3) 25 mcg PO DAILY 90 days esomeprazole magnesium 40 mg PO DAILY estradiol 1 patch transdermal 2XW gabapentin 300 mg PO BEDTIME 90 days magnesium 250 mg PO BID mecobalamin (vitamin B12) 1,000 mcg PO DAILY naproxen 250 mg PO BID PRN omega 1-heh-qvo-fish oil 60-90-500 mg (Fish Oil) 1 cap PO DAILY [Poise incontinence pads Requires poise due to allergies. NS] prednisone 20 mg PO DAILY 5 days pyridoxine (vitamin B6) 100 mg PO DAILY sucralfate 10 mL PO BID venlafaxine ER 150 mg PO BEDTIME 90 days Tobacco use date assessed: 03/20/23 Dental Screening Dental Screen Date: 03/20/23 Did you have a dental visit in the last 12 months?: Yes Did you have a dental problem in the last 6 months where you did not have access to dental care?: No Was dental information given to patient?: No HPI Follow up on burning in both eyes HPI Details Patient is 57-year-old female who [facility] She said that they put drops in her eye to dilate for examination and since then she has been having irritation and burning sensation in her eye And at times her vision is blurry she is requesting a 2nd opinion. She has been calling the eye side and a surgery associated but no but he is getting back to her. Meanwhile she is using lubricant eyedrops that is helping slightly On examination I do not see any conjunctivitis pupils are equally reactive and extraocular movement is intact externally eyes looks fine at this time [facility] Medical History Chronic GERD Depression, major, recurrent Fibromyalgia Hot flashes Microscopic hematuria Osteoarthritis Vitamin D deficiency Surgical History H/O colonoscopy History of esophagogastroduodenoscopy (EGD) History of hysterectomy History of surgery Family History Father No problems noted. Mother Asthma Dementia Alzheimer's disease Paternal Aunt Lung cancer Breast cancer Brother No problems noted. Brother No problems noted. Brother No problems noted. Sister No problems noted. Sister No problems noted. Sister No problems noted. Paternal Aunt Breast cancer, Onset Age: 70 Other Mental health disorder Social History Household Members: Significant Other and Children Household Members Other:: 2 children Housing: House Are you a primary resident care manager to a significant other at home: No Do you presently have visiting nurse or other home services: No Alcohol intake: never Patient Tobacco Use Status: Never used Tobacco e-Cigarette/Vaping Use: Never Used service: No Current occupational status: unemployed Cognitive needs: No Hearing needs: No Vision needs: Yes Female Reproductive History Menstrual Age of Menarche: 15 Questionnaire PHQ-9 Over the last 2 weeks, how often have you been bothered by any of the following problems? 1. Little interest or pleasure in doing things: several days 2. Feeling down, depressed, or hopeless: several days 3. Trouble falling or staying asleep, or sleeping too much: several days 4. Feeling tired or having little energy: several days 5. Poor appetite or overeating: not at all 6. Feeling bad about yourself - or that you are a failure or have let yourself or your family down: several days 7. Trouble concentrating on things, such as reading the newspaper or watching television: not at all 8. Moving or speaking so slowly that other people could have noticed. Or the opposite - being so fidgety or restless that you have been moving around a lot more than usual: not at all 9. Thoughts that you would be better off or of hurting yourself in some way: not at all Total score: 5 Depression Screening Interpretation: Negative 97454 - PHQ-9 Billing: Yes Source: Developed by Drs. Gatito Agustin, Catina Hunter, Adrien Liao and colleagues, with an educational kori from [email or web address]. Thrive Questionnaire Date Thrive assessed: 03/20/23 AUDIT C Alcohol Use Questionnaire (AUDIT-C) 1. How often do you have a drink containing alcohol?: Never 3. How often do you have six or more drinks on one occasion?: Never Total Score: 0 Score Reviewed/Action Taken: Yes OLI-7 AMB Questionnaire OLI-7 Date OIL - 7 assessed: 03/20/23 Source: Developed by Drs. Gatito Agustin, Catina Hunter, Adrien Liao and colleagues, with an educational kori from [email or web address]. OLI-7 Assessment Billing OLI-7 Assessment Tool: pt declined-do not bill Review of Systems Const All systems reviewed & are unremarkable except as noted in HPI and below Physical exam (Primary Care) Vital Signs: Last Vital Signs Pulse 73 03/20/23 14:31 BP 116/80 03/20/23 14:31 Pulse Ox 95 03/20/23 14:31 Oxygen Delivery Method Room Air 03/20/23 14:31 BMI result Body Mass Index 28.7 Tobacco/Smoking Status: Tobacco use Status Tobacco use date assessed 03/20/23 03/20/23 14:33 Patient Tobacco Use Status Never used Tobacco 03/20/23 14:33 e-Cigarette/Vaping Use Never Used 03/20/23 14:33 PHQ-9: PHQ-9 Score PHQ-9: Total score 5 03/20/23 14:33 Depression Screening Interpretation: Negative Thrive Assessment: Date of Thrive Assessment Date Thrive assessed 03/20/23 03/20/23 14:33 Const General: no acute distress Orientation/consciousness: patient oriented x3 Eyes General: appearance normal, both eyes and all related structures Resp Effort & Inspection: normal respiratory effort and able to speak in complete sentences Auscultation: clear to auscultation bilaterally Neuro General: patient oriented x3 Psych Mental Status: mental status grossly normal Assessment and Plan Assessment & Plan (1) Blurring of vision: Code(s): H53.8 - Other visual disturbances Plan Patient is 57-year-old female who went to [facility] for [facility] checkup She said that they put drops in her eye to dilate for examination and since then she has been having irritation and burning sensation in her eye And at times her vision is blurry she is requesting a 2nd opinion. She has been calling the eye side and a surgery associated but no but he is getting back to her. Meanwhile she is using lubricant eyedrops that is helping slightly On examination I do not see any conjunctivitis pupils are equally reactive and extraocular movement is intact externally eyes looks fine at this time Orders: Referrals Ophthalmology Referral H53.8 - Other visual disturbances Medications: Discontinued prednisone Discontinued Reason: Patient Completed Course 20 mg PO DAILY 5 days 5 tabs 0RF Coding Level of Care Code Est Pt Level 3 (92203) Diagnoses Blurring of vision H53.8
== END 2023-03-20 15:08 | disposition home or self-care (01) ==
PROVIDERS: PCP Internal Medicine; Visit Provider Internal Medicine
DX: H53.8 Other visual disturbances (principal)
CPT/HCPCS: 99213

== ENCOUNTER 2023-04-12 13:08 | Outpatient (REF) | payer OTHER, SELFPAY ==
--- NOTE | ~2023-04-12 | MM_ITS ---
EXAMINATION: MM DIAGNOSTIC DIGITAL BREAST TOMOSYNTHESIS, BILATERAL CLINICAL INFORMATION: Six-month follow-up left breast probably benign calcifications, upper outer quadrant, middle one third, followed since 03/06/2022. Patient also due for bilateral screening. COMPARISON: Mammography: 10/08/2022, 06/18/2022, 03/06/2022, 02/28/2022, and 02/27/2021. TECHNIQUE: Digital breast tomosynthesis is performed in both the craniocaudal and mediolateral oblique views along with computer-aided detection (CAD). Synthesized 2D images are generated from the tomosynthesis. In addition, 2-D spot magnification left CC and ML views were performed. FINDINGS: There are scattered areas of fibroglandular density (ACR BI-RADS breast composition Category b). Loosely grouped predominantly punctate calcifications in the upper outer quadrant left breast, middle one third, have remained unchanged in morphology and number since the prior 2 examinations, demonstrating stability for one year. No suspicious or aggressive changes. These remain probably benign, and additional 6 month interval follow-up left diagnostic mammography recommended. Otherwise, no suspicious masses, suspicious grouped calcifications, or areas of architectural distortion are present in either breast. The parenchymal pattern is stable from prior exams. Stable circumscribed densities bilaterally are unchanged from multiple prior exams and consistent with benign entities such as cysts or fibroadenomas. MM/MM tomosynthesis diagnostic BI IMPRESSION: No findings suspicious for malignancy in either breast. Stable probably benign calcifications left breast upper outer quadrant, middle one third, for which six-month follow-up CC and ML magnification views are recommended to ensure stability. No suspicious abnormality in the right breast. Findings were relayed to the patient by the technologist at the time of the exam. ASSESSMENT: BI-RADS BI-RADS 3 - Probably benign finding(s) - 6 month follow-up suggested RECOMMENDATION: 6 Month F/U Results were provided to the patient at time of visit by the technologist. This patient's information was entered into a reminder system with a target due date for their next mammogram.
== END 2023-04-12 13:09 | disposition home or self-care (01) ==
LOC: HO.MAMMO 13:08
PROVIDERS: PCP Internal Medicine; Visit Provider Internal Medicine
DX: R92.1 Mammographic calcification found on diagnostic imaging of breast (principal)
CPT/HCPCS: 77062; 77066

== ENCOUNTER → 2023-04-12 13:30 | Outpatient (BNV) | payer OTHER, SELFPAY | PROVIDERS: PCP Internal Medicine; Visit Provider Radiology Diagnostic Radiology | DX: R92.1 Mammographic calcification found on diagnostic imaging of breast (principal) | CPT/HCPCS: 77062; 77066 ==

== ENCOUNTER 2023-04-18 14:42 | Outpatient (AMB) | payer OTHER, SELFPAY ==
--- NOTE | 2023-04-18 14:44 | A.OFFVIS_ITS ---
Intake Vital Signs 04/18/23 14:52 Height 5 ft 4 in Weight 167 lb 8.821 oz BMI 28.8 BP 110/70 Blood Pressure Location Lt brachial Position Sitting Intake Visit Reasons: Follow up after mammo Intake Note: Patient is seen in office for mammogram results, following tenderness of the left breast. Patient c/o: denies any concerns or changes since last visit, here for results. Clinical Project Leader Required: No Accompanied by: Family/Other Allergies cat dander [cats] Allergy (Intermediate, Verified 04/18/23 14:52) Itchy Eyes and burning cigarette smoke Allergy (Intermediate, Verified 04/18/23 14:52) migraines latex Allergy (Intermediate, Verified 04/18/23 14:52) Rash trazodone Allergy (Intermediate, Verified 04/18/23 14:52) palpitations Penicillins Adverse Reaction (Intermediate, Verified 04/18/23 14:52) Abdominal Pain tamsulosin Allergy (Severe, Uncoded 04/18/23 14:52) Dizziness Medication List - Last Reconciled 04/19/23 by Tr Lopez MD [Adult Sanitary Wipes As directed] cholecalciferol (vitamin D3) 25 mcg PO DAILY 90 days esomeprazole magnesium 40 mg PO DAILY estradiol 1 patch transdermal 2XW gabapentin 300 mg PO BEDTIME 90 days magnesium 250 mg PO BID mecobalamin (vitamin B12) 1,000 mcg PO DAILY naproxen 250 mg PO BID PRN omega 1-exo-lph-fish oil 60-90-500 mg (Fish Oil) 1 cap PO DAILY [Poise incontinence pads Requires poise due to allergies. NS] pyridoxine (vitamin B6) 100 mg PO DAILY sucralfate 10 mL PO BID venlafaxine ER 150 mg PO BEDTIME 90 days HPI HPI Comments History of Present Illness Details 57-year-old female patient returning for follow-up examination of the left breast lump. She was initially evaluated on 07/05/2022 the follow-up examination on 03/14/2023. She subsequently underwent evaluation with mammogram on 04/12/2023. This revealed loosely grouped predominantly punctate calcifications in the upper outer quadrant of the left breast, middle 3rd which remain unchanged in morphology and number since the prior to examinations. These been stable for the past year and noted new suspicious changes were identified. Findings were felt to be benign and six-month follow-up mammogram recommended. She denies any new breast symptoms She reports that a paternal aunt was diagnosed with breast cancer which raises her concerns. She denies any palpable lumps in the right breast. The lump was 1st identified in May 2022 she reports a prior history of breast cysts and breast lumps but denies a prior history of breast cancer. She is with 1 miscarriage. Previous mammogram and ultrasound revealed no suspicious findings in either breast. On her previous examination mild fibrocystic change was identified at the area of palpable abnormality. No discrete mass could be appreciated. Right breast revealed no suspicious findings. She returns today for follow-up examination. She underwent left breast mammogram on 10/08/2022. She was found to have low suspicion calcifications in the left breast and short-term follow-up diagnostic bilateral mammograms were recommended scheduled on 04/12/2023. [facility] Medical History Chronic GERD Depression, major, recurrent Fibromyalgia Hot flashes Microscopic hematuria Osteoarthritis Vitamin D deficiency Surgical History H/O colonoscopy History of esophagogastroduodenoscopy (EGD) History of hysterectomy History of surgery Family History Father No problems noted. Mother Asthma Dementia Alzheimer's disease Paternal Aunt Lung cancer Breast cancer Brother No problems noted. Brother No problems noted. Brother No problems noted. Sister No problems noted. Sister No problems noted. Sister No problems noted. Paternal Aunt Breast cancer, Onset Age: 70 Other Mental health disorder Social History Household Members: Significant Other and Children Household Members Other:: 2 children Housing: House Are you a primary animal caretaker to a significant other at home: No Do you presently have visiting nurse or other home services: No Alcohol intake: never Patient Tobacco Use Status: Never used Tobacco e-Cigarette/Vaping Use: Never Used service: No Current occupational status: unemployed Cognitive needs: No Hearing needs: No Vision needs: Yes Female Reproductive History Menstrual Age of Menarche: 15 Physical Exam Vital Signs: Last Vital Signs BP 110/70 08/31/23 14:52 BMI result Body Mass Index 28.8 Const General: cooperative and no acute distress Nutritional Appearance: well nourished Orientation/consciousness: patient oriented x3 Limitations: no limitations HEENT Head: Yes normocephalic and Yes atraumatic Ears: hearing grossly normal bilaterally Chest Other: Exam deferred Resp Effort & Inspection: normal respiratory effort, no audible wheezes, no cough and no respiratory distress Cardio Jugular venous distension: no JVD GI Inspection: Yes normal to inspection Skin Other: Warm, dry, no rash Neuro General: patient oriented x3 Extrem General: Yes no clubbing, cyanosis or edema Assessment & Plan Assessment & Plan (1) Abnormal mammogram of left breast: Code(s): R92.8 - Other abnormal and inconclusive findings on diagnostic imaging of breast Plan 57-year-old female patient returning for follow-up following her recent mammogram. Results of the mammogram reviewed in detail with the patient in the studies reviewed with the patient. No suspicious findings are noted and a low suspicion area identified in the left breast. A follow-up 6 month diagnostic mammogram will be requested and patient should follow-up in 6 months for review and repeat examination. Patient should call sooner for any new concerns. Orders: Orders MM diagnostic mammo unilat LT 04/18/23 R92.8 - Other abnormal and inconclusive findings on diagnostic imaging of breast Coding Level of Care Code Est Pt Level 3 (61644) Diagnoses Abnormal mammogram of left breast R92.8
[2023-04-18 14:52] VITALS: BP 110/70; BMI 28.8
== END 2023-04-18 15:09 | disposition home or self-care (01) ==
PROVIDERS: PCP Internal Medicine; Visit Provider Surgery
DX: R92.8 Other abnormal and inconclusive findings on diagnostic imaging of breast (principal)
CPT/HCPCS: 99213

== ENCOUNTER → 2023-04-18 14:42 | Outpatient (BNVA) | payer OTHER, SELFPAY | PROVIDERS: PCP Internal Medicine; Visit Provider Surgery | DX: R92.8 Other abnormal and inconclusive findings on diagnostic imaging of breast (principal) | CPT/HCPCS: 99212 ==

== ENCOUNTER → 2023-04-23 12:46 | Outpatient (BNVA) | payer OTHER, SELFPAY | PROVIDERS: PCP Internal Medicine; Visit Provider Surgery | DX: Z71.83 Encounter for nonprocreative genetic counseling (principal) | CPT/HCPCS: 99211 ==

== ENCOUNTER 2023-05-06 13:02 | Outpatient (AMB) | payer OTHER, SELFPAY ==
--- NOTE | 2023-05-06 13:03 | A.OFFVIS_ITS ---
Intake Intake Visit Reasons: 6 month fu Intake Note: Janna presents in the office as a 6 month follow up. CC: She would like to know if there is some sort of testing that she can do to decide if she is lactose intolerant or allergic. She states that she is having bloating and constipation when she eats anyting dairy and then the morning after she will have mucus stool. Automat Watcher Required: No Allergies cat dander [cats] Allergy (Intermediate, Verified 05/16/23 08:41) Itchy Eyes and burning cigarette smoke Allergy (Intermediate, Verified 05/16/23 08:41) migraines latex Allergy (Intermediate, Verified 05/16/23 08:41) Rash trazodone Allergy (Intermediate, Verified 05/16/23 08:41) palpitations Penicillins Adverse Reaction (Intermediate, Verified 05/16/23 08:41) Abdominal Pain tamsulosin Allergy (Severe, Uncoded 05/06/23 13:03) Dizziness HPI 6 month fu HPI Details 58 yr old f called for f/u Initially seen [facility] [place] needed screening colonoscopy abdominal bloating GERD she had 6 surgeries due to bladder mesh and cystocele issues TTG was negative US 12/2021 hepatic steatosis left renal stones, calcifications , renal cyst neg H pylori test EGD/colonsocopy: 07/2022 Endoscopy Findings: sliding hiatal hernia esophagitis schatzki ring Colonoscopy Findings: internal hemorrhoids Path: A.? Stomach, biopsy:? Antral-type and oxyntic mucosa with moderate chronic active/erosive inflammation; no Helicobacter organisms seen. B.? EG junction, biopsy: - Cardiofundic-type mucosa with moderate chronic active inflammation and multilayered epithelium; no fully developed intestinal metaplasia seen. - Chronic active esophagitis (eosinophil s and few neutrophils). C.? Esophagus, distal, biopsy:? Squamous epithelium within normal limits; no inflammation seen. CT- 08/09 kidney stones INTERIM: she is worried about lactose intolerance she notes sx worse with dairy and notes otherwise she feels good no abdominal pain appetite is good her sleep study came out good A/P: 1/nausea, epigastric pain and regurgitat ion,-improved ddX: GERd, functional dyspepsia, gastroparesis, gallstones- 2/ Lactulose intolerance PLAN:? 1/ reviewed lacotse free diet with her - -she understood, can try lactaid, other options like almond milk, vit D supplement 2/ she is keen on lactase breath test wi ll ask my R/N to look at it ? PFSH Medical History Microscopic hematuria Hot flashes Vitamin D deficiency Fibromyalgia Osteoarthritis Chronic GERD Depression, major, recurrent Surgical History History of esophagogastroduodenoscopy (EGD) H/O colonoscopy History of hysterectomy History of surgery Family History Father No problems noted. Mother Asthma Dementia Alzheimer's disease Paternal Aunt Lung cancer Breast cancer Brother No problems noted. Brother No problems noted. Brother No problems noted. Sister No problems noted. Sister No problems noted. Sister No problems noted. Paternal Aunt Breast cancer, Onset Age: 70 Other Mental health disorder Social History Household Members: Significant Other and Children Household Members Other:: 2 children Housing: House Are you a primary director long term care to a significant other at home: No Do you presently have visiting nurse or other home services: No Alcohol intake: never Patient Tobacco Use Status: Never used Tobacco e-Cigarette/Vaping Use: Never Used service: No Current occupational status: unemployed Cognitive needs: No Hearing needs: No Vision needs: Yes Female Reproductive History Menstrual Age of Menarche: 15 Assessment & Plan Assessment & Plan (1) Lactose intolerance: Code(s): E73.9 - Lactose intolerance, unspecified Telehealth Telehealth Location of provider rendering services: practice address Location of patient: address on file Patient Identification confirmed using: Name, : Yes Telehealth method: voice only Patient verbally consented to treatment: Yes Patient verbally consented to billing insurance company: Yes Patient informed of any privacy concerns related to visit: Yes Minutes spent on Phone/Video with Pt.: 8 Coding Level of Care Code Tele Est Pt Level 2 (16703) Diagnoses Lactose intolerance E73.9
== END 2023-05-06 16:22 | disposition home or self-care (01) ==
LOC: HO.HGI 13:02
PROVIDERS: PCP Internal Medicine; Visit Provider Internal Medicine Gastroenterology
DX: E73.9 Lactose intolerance, unspecified (principal)
CPT/HCPCS: 99441

== ENCOUNTER → 2023-05-06 13:02 | Outpatient (BNVA) | payer OTHER, SELFPAY | PROVIDERS: PCP Internal Medicine; Visit Provider Internal Medicine Gastroenterology ==

== ENCOUNTER 2023-05-16 08:30 | Outpatient (AMB) | payer OTHER, SELFPAY ==
--- NOTE | 2023-05-16 08:40 | A.OFFPC_ITS ---
Intake Visit Reasons: Eye redness/[phone] Allergies cat dander [cats] Allergy (Intermediate, Verified 05/16/23 08:41) Itchy Eyes and burning cigarette smoke Allergy (Intermediate, Verified 05/16/23 08:41) migraines latex Allergy (Intermediate, Verified 05/16/23 08:41) Rash trazodone Allergy (Intermediate, Verified 05/16/23 08:41) palpitations Penicillins Adverse Reaction (Intermediate, Verified 05/16/23 08:41) Abdominal Pain tamsulosin Allergy (Severe, Uncoded 05/06/23 13:03) Dizziness Medication List - Last Reconciled 05/16/23 by Gaudencio Ballard MD [Adult Sanitary Wipes As directed] cholecalciferol (vitamin D3) 25 mcg PO DAILY 90 days estradiol 1 patch transdermal 2XW gabapentin 300 mg PO BEDTIME 90 days magnesium 250 mg PO BID mecobalamin (vitamin B12) 1,000 mcg PO DAILY naproxen 250 mg PO BID PRN omega 3-zsb-zhd-fish oil 60-90-500 mg (Fish Oil) 1 cap PO DAILY pantoprazole 40 mg PO BID [Poise incontinence pads Requires poise due to allergies. NS] pyridoxine (vitamin B6) 100 mg PO DAILY sucralfate 10 mL PO BID venlafaxine ER 150 mg PO BEDTIME 90 days Tobacco use date assessed: 05/16/23 Dental Screening Dental Screen Date: 05/16/23 Did you have a dental visit in the last 12 months?: Yes Did you have a dental problem in the last 6 months where you did not have access to dental care?: No Was dental information given to patient?: Patient has dentist HPI Eye redness/[phone] HPI Details Patient is 58-year-old female this is a telemedicine video conference Patient continued to have pain in her right foot, patient says that it is difficult for her to go up and down the stairs her pain is mostly located over Achilles tendon but also at the bottom of the foot. She has already seen scraper hand Dr. Jc who has ordered physical therapy but that is not helping. She is requesting a 2nd opinion by pharmacy customer care specialist Patient continued to have problem with her eyes as well she has already seen 3 molecular biology director and they all have told her that she has dry eyes and given her drops which are also not working. I have encouraged vision to book a follow-up appointment with the last molecular biology director she has seen to discuss it further. Patient is having whole body pain she has a history of fibromyalgia, patient says that she is still waiting for medulla G appointment. GERD is stable with medication She is requesting naproxen prescription we discussed side effect I would recommend if she must take that she should take it with food. And only if needed. Patient is already on gabapentin 300 mg at night which is helping her with the fibromyalgia and foot pain. Last time patient had labs done was September of this year I have placed a new set of labs for the patient patient have a lipid disorder we will be doing a fasting labs to monitor her lipids as well. She has a physical exam appointment next month. [facility] Medical History Microscopic hematuria Hot flashes Vitamin D deficiency Fibromyalgia Osteoarthritis Chronic GERD Depression, major, recurrent Surgical History History of esophagogastroduodenoscopy (EGD) H/O colonoscopy History of hysterectomy History of surgery Family History Father No problems noted. Mother Asthma Dementia Alzheimer's disease Paternal Aunt Lung cancer Breast cancer Brother No problems noted. Brother No problems noted. Brother No problems noted. Sister No problems noted. Sister No problems noted. Sister No problems noted. Paternal Aunt Breast cancer, Onset Age: 70 Other Mental health disorder Social History Household Members: Significant Other and Children Household Members Other:: 2 children Housing: House Are you a primary respiratory care technician to a significant other at home: No Do you presently have visiting nurse or other home services: No Alcohol intake: never Patient Tobacco Use Status: Never used Tobacco e-Cigarette/Vaping Use: Never Used service: No Current occupational status: unemployed Cognitive needs: No Hearing needs: No Vision needs: Yes Female Reproductive History Menstrual Age of Menarche: 15 Questionnaire Thrive Questionnaire Date Thrive assessed: 03/20/23 AUDIT C Alcohol Use Questionnaire (AUDIT-C) 1. How often do you have a drink containing alcohol?: Never 3. How often do you have six or more drinks on one occasion?: Never Total Score: 0 Score Reviewed/Action Taken: Yes OLI-7 AMB Questionnaire OLI-7 Date OLI - 7 assessed: 03/20/23 Source: Developed by Drs. Gatito Agustin, Catina Hunter, Adrien Liao and colleagues, with an educational kori from [employer] I. Review of Systems Const Denies chills and Denies fever(s) ENT Denies epistaxis and Denies nasal discharge Card Denies chest pain Resp Denies chest congestion, Denies cough and Denies hemoptysis GI Denies diarrhea and Denies nausea Skin/Breast Denies rash Neuro Reports no additional complaints Psych Reports no additional complaints Endo Reports no additional complaints Physical exam (Primary Care) Tobacco/Smoking Status: Tobacco use Status Tobacco use date assessed 05/16/23 05/16/23 08:43 Patient Tobacco Use Status Never used Tobacco 05/16/23 08:43 e-Cigarette/Vaping Use Never Used 05/16/23 08:43 Thrive Assessment: Date of Thrive Assessment Date Thrive assessed 03/20/23 05/16/23 08:43 Telehealth Telehealth Location of provider rendering services: practice address Location of patient: address on file Patient Identification confirmed using: Name, : Yes Telehealth method: video Patient verbally consented to treatment: Yes Patient verbally consented to billing insurance company: Yes Patient informed of any privacy concerns related to visit: Yes Assessment and Plan Assessment & Plan (1) Fibromyalgia: Code(s): M79.7 - Fibromyalgia (2) Achilles tendinitis of right lower extremity: Code(s): M76.61 - Achilles tendinitis, right leg (3) Blurring of vision: Code(s): H53.8 - Other visual disturbances (4) Lipid disorder: Code(s): E78.9 - Disorder of lipoprotein metabolism, unspecified (5) Myalgia: Code(s): M79.10 - Myalgia, unspecified site (6) Depression, major, recurrent: Code(s): F33.9 - Major depressive disorder, recurrent, unspecified Qualifiers: Active/Remission status: in partial remission Qualified Code(s): F33.41 - Major depressive disorder, recurrent, in partial remission (7) Chronic GERD: Code(s): K21.9 - Gastro-esophageal reflux disease without esophagitis (8) Vitamin D deficiency: Code(s): E55.9 - Vitamin D deficiency, unspecified Plan Patient is 58-year-old female this is a telemedicine video conference Patient continued to have pain in her right foot, patient says that it is difficult for her to go up and down the stairs her pain is mostly located over Achilles tendon but also at the bottom of the foot. She has already seen scraper hand Dr. Jc who has ordered physical therapy but that is not helping. She is requesting a 2nd opinion by pharmacy customer care specialist Patient continued to have problem with her eyes as well she has already seen 3 molecular biology director and they all have told her that she has dry eyes and given her drops which are also not working. I have encouraged vision to book a follow-up appointment with the last molecular biology director she has seen to discuss it further. Patient is having whole body pain she has a history of fibromyalgia, patient says that she is still waiting for medulla G appointment. GERD is stable with medication She is requesting naproxen prescription we discussed side effect I would recommend if she must take that she should take it with food. And only if needed. Patient is already on gabapentin 300 mg at night which is helping her with the fibromyalgia and foot pain. Last time patient had labs done was September of this year I have placed a new set of labs for the patient patient have a lipid disorder we will be doing a fasting labs to monitor her lipids as well. She has a physical exam appointment next month. Orders: Orders Comprehensive M[place]. Panel Fast Today E55.9 - Vitamin D deficiency, unspecified, E78.9 - Disorder of lipoprotein metabolism, unspecified, F33.9 - Major depressive disorder, recurrent, unspecified, H53.8 - Other visual disturbances, K21.9 - Gastro-esophageal reflux disease without esophagitis, M76.61 - Achilles tendinitis, right leg, M79.10 - Myalgia, unspecified site, M79.7 - Fibromyalgia Vitamin D 25-OH (D2 and D3) Today E55.9 - Vitamin D deficiency, unspecified, E78.9 - Disorder of lipoprotein metabolism, unspecified, F33.9 - Major depressive disorder, recurrent, unspecified, H53.8 - Other visual disturbances, K21.9 - Gastro-esophageal reflux disease without esophagitis, M76.61 - Achilles tendinitis, right leg, M79.10 - Myalgia, unspecified site, M79.7 - Fibromyalgia Comprehensive Met. Panel Today E55.9 - Vitamin D deficiency, unspecified, E78.9 - Disorder of lipoprotein metabolism, unspecified, F33.9 - Major depressive disorder, recurrent, unspecified, H53.8 - Other visual disturbances, K21.9 - Gastro-esophageal reflux disease without esophagitis, M76.61 - Achilles tendinitis, right leg, M79.10 - Myalgia, unspecified site, M79.7 - Fibromyalgia IRON PROFILE Today E55.9 - Vitamin D deficiency, unspecified, E78.9 - Disorder of lipoprotein metabolism, unspecified, F33.9 - Major depressive disorder, recurrent, unspecified, H53.8 - Other visual disturbances, K21.9 - Gastro- esophageal reflux disease without esophagitis, M76.61 - Achilles tendinitis, right leg, M79.10 - Myalgia, unspecified site, M79.7 - Fibromyalgia TSH reflex Free T4 Today E55.9 - Vitamin D deficiency, unspecified, E78.9 - Disorder of lipoprotein metabolism, unspecified, F33.9 - Major depressive disorder, recurrent, unspecified, H53.8 - Other visual disturbances, K21.9 - Gastro-esophageal reflux disease without esophagitis, M76.61 - Achilles tendinitis, right leg, M79.10 - Myalgia, unspecified site, M79.7 - Fibromyalgia Lipid Panel Today E55.9 - Vitamin D deficiency, unspecified, E78.9 - Disorder of lipoprotein metabolism, unspecified, F33.9 - Major depressive disorder, recurrent, unspecified, H53.8 - Other visual disturbances, K21.9 - Gastro- esophageal reflux disease without esophagitis, M76.61 - Achilles tendinitis, right leg, M79.10 - Myalgia, unspecified site, M79.7 - Fibromyalgia Vitamin B12 Today E55.9 - Vitamin D deficiency, unspecified, E78.9 - Disorder of lipoprotein metabolism, unspecified, F33.9 - Major depressive disorder, recurrent, unspecified, H53.8 - Other visual disturbances, K21.9 - Gastro- esophageal reflux disease without esophagitis, M76.61 - Achilles tendinitis, right leg, M79.10 - Myalgia, unspecified site, M79.7 - Fibromyalgia Referrals Orthopedics Referral M76.61 - Achilles tendinitis, right leg Rheumatology Referral M79.7 - Fibromyalgia Medications: Changed From naproxen 250 mg PO BID PRN 30 tabs 0RF pain To naproxen 500 mg PO BID PRN 60 tabs 0RF pain 30 days Coding Level of Care Code Tele Est Pt Level 4 (98647) Diagnoses Fibromyalgia M79.7 Achilles tendinitis of right lower extremity M76.61 Blurring of vision H53.8 Lipid disorder E78.9 Myalgia M79.10 Recurrent major depressive disorder, in partial remission F33.41 Active/Remission status: in partial remission Chronic GERD K21.9 Vitamin D deficiency E55.9 Time Spent (min) 32 Comment 5 prep, 20 with patient, 7 min charting, labs, referrals
== END 2023-05-16 10:22 | disposition home or self-care (01) ==
LOC: HO.HMGC 08:30
PROVIDERS: PCP Internal Medicine; Visit Provider Internal Medicine
DX: M79.7 Fibromyalgia (principal); M76.61 Achilles tendinitis, right leg; F33.41 Major depressive disorder, recurrent, in partial remission; H53.8 Other visual disturbances; E78.9 Disorder of lipoprotein metabolism, unspecified; M79.10 Myalgia, unspecified site; K21.9 Gastro-esophageal reflux disease without esophagitis; E55.9 Vitamin D deficiency, unspecified
CPT/HCPCS: 99214

== ENCOUNTER 2023-06-24 14:55 | Outpatient (REF) | payer OTHER, SELFPAY ==
[2023-06-24 15:47] LABS: Anion Gap 9 (12-20); Blood Urea Nitrogen 14 mg/dL (9-16); Calcium 9.5 mg/dL (8.4-10.2); Carbon Dioxide 27 mmol/L (22-29); Chloride 110 mmol/L (96-108); Estimated Glomerular Filt Rate > 60; Potassium 4.3 mmol/L (3.3-5.1); Sodium 142 mmol/L (135-145)
[2023-06-25 15:23] LABS: Calcium (PTHI) 9.7 mg/dL (8.6-10.4); PTHI 39 pg/mL (16-77)
== END 2023-06-24 14:56 | disposition home or self-care (01) ==
LOC: HO.LAB 14:55
PROVIDERS: PCP Internal Medicine; Visit Provider Student in an Organized Health Care Education/Training Program
DX: N20.0 Calculus of kidney (principal); K80.20 Calculus of gallbladder without cholecystitis without obstruction
CPT/HCPCS: 36415; 80051; 82310; 82565; 83970; 84520

== ENCOUNTER → 2023-07-18 09:30 | Outpatient (AMB) | payer OTHER, SELFPAY ==
--- NOTE | 2023-07-18 08:35 | MHC.PC.OV ---
Intake Visit Reasons: Discuss Tiredness [phone] Allergies cat dander [cats] Allergy (Intermediate, Verified 07/18/23 08:38) Itchy Eyes and burning cigarette smoke Allergy (Intermediate, Verified 07/18/23 08:38) migraines latex Allergy (Intermediate, Verified 07/18/23 08:38) Rash trazodone Allergy (Intermediate, Verified 07/18/23 08:38) palpitations Penicillins Adverse Reaction (Intermediate, Verified 07/18/23 08:38) Abdominal Pain tamsulosin Allergy (Severe, Uncoded 05/06/23 13:03) Dizziness Medication List - Last Reconciled 07/18/23 by Gaudencio Ballard MD [Adult Sanitary Wipes As directed] cholecalciferol (vitamin D3) 25 mcg PO DAILY 90 days estradiol 1 patch transdermal 2XW gabapentin 300 mg PO BEDTIME 90 days magnesium 250 mg PO BID mecobalamin (vitamin B12) 1,000 mcg PO DAILY naproxen 500 mg PO BID PRN 30 days omega 4-eij-yqa-fish oil 60-90-500 mg (Fish Oil) 1 cap PO DAILY [Poise incontinence pads Requires poise due to allergies. NS] pyridoxine (vitamin B6) 100 mg PO DAILY venlafaxine ER 150 mg PO BEDTIME 90 days Tobacco use date assessed: 07/18/23 Dental Screening Dental Screen Date: 07/18/23 Did you have a dental visit in the last 12 months?: Yes Did you have a dental problem in the last 6 months where you did not have access to dental care?: No Was dental information given to patient?: Patient has dentist HPI Discuss Tiredness [phone] HPI Details Patient is a 58 year old female suffers from, anxiety depression fibromyalgia, chronic GERD, vitamin-D deficiency severe hot flashes, myalgias, multiple joint pains, lipid disorder, heart palpitations , history of blood in the urine, also complain of losing weight without trying, urine incontinence. Patient has been having I issues as well and has seen 3 bullet lubricant mixer, patient says that the last bullet lubricant mixer given few drops which has not helped her Patient says that says when 1st time she went for eye exam and her eyes were dilated since then she has been having tearing of her eyes. She has seen 3 bullet lubricant mixer already, they wanted to do a procedure which patient was reluctant to consent. I explained to patient that sometimes certain procedures are needed in order to diagnose the problem. I would suggest that she follow bullet lubricant mixer recommendations. She has been feeling very fatigued and tired lately, patient says that that is been happening for the past 5 or 6 months. She also complains of severe hot flashes. Patient was on estrogen patch which she stopped 5 months ago when she realized the risk of side effects. She would like to have new set of labs done. I explained to her that order is already in the system when I saw or last in April I have placed the order. I have placed a new set of orders today, patient has been fasting and she will come in and have it done today. She will return next week to go over the reports [facility] Medical History Microscopic hematuria Hot flashes Vitamin D deficiency Fibromyalgia Osteoarthritis Chronic GERD Depression, major, recurrent Surgical History History of esophagogastroduodenoscopy (EGD) H/O colonoscopy History of hysterectomy History of surgery Family History Father No problems noted. Mother Asthma Dementia Alzheimer's disease Paternal Aunt Lung cancer Breast cancer Brother No problems noted. Brother No problems noted. Brother No problems noted. Sister No problems noted. Sister No problems noted. Sister No problems noted. Paternal Aunt Breast cancer, Onset Age: 70 Other Mental health disorder Social History Household Members: Significant Other and Children Household Members Other:: 2 children Housing: House Are you a primary progressive care unit registered nurse to a significant other at home: No Do you presently have visiting nurse or other home services: No Alcohol intake: never Patient Tobacco Use Status: Never used Tobacco e-Cigarette/Vaping Use: Never Used service: No Current occupational status: unemployed Cognitive needs: No Hearing needs: No Vision needs: Yes Female Reproductive History Menstrual Age of Menarche: 15 Questionnaire Thrive Questionnaire Date Thrive assessed: 03/20/23 AUDIT C Alcohol Use Questionnaire (AUDIT-C) 1. How often do you have a drink containing alcohol?: Never 3. How often do you have six or more drinks on one occasion?: Never Total Score: 0 Score Reviewed/Action Taken: Yes OLI-7 AMB Questionnaire OLI-7 Date OLI - 7 assessed: 03/20/23 Source: Developed by Drs. Gatito Agustin, Catina Hunter, Adrien Liao and colleagues, with an educational kori from [employer]. Review of Systems Const Denies chills and Denies fever(s) ENT Denies epistaxis and Denies nasal discharge Card Denies chest pain Resp Denies chest congestion, Denies cough and Denies hemoptysis GI Denies diarrhea and Denies nausea Skin/Breast Denies rash Neuro Reports no additional complaints Psych Reports no additional complaints Endo Reports no additional complaints Physical exam (Primary Care) Tobacco/Smoking Status: Tobacco use Status Tobacco use date assessed 07/18/23 07/19/23 08:50 Patient Tobacco Use Status Never used Tobacco 07/19/23 08:50 e-Cigarette/Vaping Use Never Used 07/19/23 08:50 Thrive Assessment: Date of Thrive Assessment Date Thrive assessed 03/20/23 07/19/23 08:50 Telehealth Telehealth Location of provider rendering services: practice address Location of patient: address on file Patient Identification confirmed using: Name, : Yes Telehealth method: video Patient verbally consented to treatment: Yes Patient verbally consented to billing insurance company: Yes Patient informed of any privacy concerns related to visit: Yes Assessment and Plan Assessment & Plan (1) Fatigue: Code(s): R53.83 - Other fatigue Qualifiers: Fatigue type: chronic, unspecified Qualified Code(s): R53.82 - Chronic fatigue, unspecified (2) Urine incontinence: Code(s): R32 - Unspecified urinary incontinence Qualifiers: Urinary Incontinence type: mixed stress and urge incontinence Qualified Code(s): N39.46 - Mixed incontinence (3) Anxiety, generalized: Code(s): F41.1 - Generalized anxiety disorder (4) Weight loss: Code(s): R63.4 - Abnormal weight loss (5) Easy bruising: Code(s): R23.3 - Spontaneous ecchymoses (6) Blood in urine: Code(s): R31.9 - Hematuria, unspecified Qualifiers: Hematuria type: other microscopic Qualified Code(s): R31.29 - Other microscopic hematuria (7) Depression, major, recurrent: Code(s): F33.9 - Major depressive disorder, recurrent, unspecified Qualifiers: Active/Remission status: in partial remission Qualified Code(s): F33.41 - Major depressive disorder, recurrent, in partial remission (8) Fibromyalgia: Code(s): M79.7 - Fibromyalgia (9) Vitamin D deficiency: Code(s): E55.9 - Vitamin D deficiency, unspecified (10) Hot flashes: Code(s): R23.2 - Flushing (11) Myalgia: Code(s): M79.10 - Myalgia, unspecified site (12) Lipid disorder: Code(s): E78.9 - Disorder of lipoprotein metabolism, unspecified (13) Heart palpitations: Code(s): R00.2 - Palpitations Plan Patient is a 58 year old female suffers from, anxiety depression fibromyalgia, chronic GERD, vitamin-D deficiency severe hot flashes, myalgias, multiple joint pains, lipid disorder, heart palpitations , history of blood in the urine, also complain of losing weight without trying, urine incontinence. ? Patient has been having I issues as well and has seen 3 bullet lubricant mixer, patient says that the last bullet lubricant mixer given few drops which has not helped her Patient says that says when 1st time she went for eye exam and her eyes were dilated since then she has been having tearing of her eyes. ? She has seen 3 bullet lubricant mixer already, they wanted to do a procedure which patient was reluctant to consent. ? I explained to patient that sometimes certain procedures are needed in order to diagnose the problem.? I would suggest that she follow bullet lubricant mixer recommendations. ? She has been feeling very fatigued and tired lately, patient says that that is been happening for the past 5 or 6 months. ? She also complains of severe hot flashes. ? Patient was on estrogen patch which she stopped 5 months ago when she realized the risk of side effects. She would like to have new set of labs done.? I explained to her that order is already in the system when I saw or last in April I have placed the order. ? I have placed a new set of orders today, patient has been fasting and she will come in and have it done today. ? She will return next week to go over the reports Orders: Orders Zinc 07/18/23 E55.9 - Vitamin D deficiency, unspecified, E78.9 - Disorder of lipoprotein metabolism, unspecified, F33.9 - Major depressive disorder, recurrent, unspecified, F41.1 - Generalized anxiety disorder, M79.10 - Myalgia, unspecified site, M79.7 - Fibromyalgia, R00.2 - Palpitations, R23.2 - Flushing, R23.3 - Spontaneous ecchymoses, R31.9 - Hematuria, unspecified, R32 - Unspecified urinary incontinence, R53.83 - Other fatigue, R63.4 - Abnormal weight loss UA CC w/rflx Micro + Cult 07/18/23 E55.9 - Vitamin D deficiency, unspecified, E78.9 - Disorder of lipoprotein metabolism, unspecified, F33.9 - Major depressive disorder, recurrent, unspecified, F41.1 - Generalized anxiety disorder, M79.10 - Myalgia, unspecified site, M79.7 - Fibromyalgia, R00.2 - Palpitations, R23.2 - Flushing, R23.3 - Spontaneous ecchymoses, R31.9 - Hematuria, unspecified, R32 - Unspecified urinary incontinence, R53.83 - Other fatigue, R63.4 - Abnormal weight loss Ferritin 07/18/23 E55.9 - Vitamin D deficiency, unspecified, E78.9 - Disorder of lipoprotein metabolism, unspecified, F33.9 - Major depressive disorder, recurrent, unspecified, F41.1 - Generalized anxiety disorder, M79.10 - Myalgia, unspecified site, M79.7 - Fibromyalgia, R00.2 - Palpitations, R23.2 - Flushing, R23.3 - Spontaneous ecchymoses, R31.9 - Hematuria, unspecified, R32 - Unspecified urinary incontinence, R53.83 - Other fatigue, R63.4 - Abnormal weight loss Complete Blood Count Auto Diff 07/18/23 E55.9 - Vitamin D deficiency, unspecified, E78.9 - Disorder of lipoprotein metabolism, unspecified, F33.9 - Major depressive disorder, recurrent, unspecified, F41.1 - Generalized anxiety disorder, M79.10 - Myalgia, unspecified site, M79.7 - Fibromyalgia, R00.2 - Palpitations, R23.2 - Flushing, R23.3 - Spontaneous ecchymoses, R31.9 - Hematuria, unspecified, R32 - Unspecified urinary incontinence, R53.83 - Other fatigue, R63.4 - Abnormal weight loss Comprehensive [place]. Panel Fast 07/18/23 E55.9 - Vitamin D deficiency, unspecified, E78.9 - Disorder of lipoprotein metabolism, unspecified, F33.9 - Major depressive disorder, recurrent, unspecified, F41.1 - Generalized anxiety disorder, M79.10 - Myalgia, unspecified site, M79.7 - Fibromyalgia, R00.2 - Palpitations, R23.2 - Flushing, R23.3 - Spontaneous ecchymoses, R31.9 - Hematuria, unspecified, R32 - Unspecified urinary incontinence, R53.83 - Other fatigue, R63.4 - Abnormal weight loss Lipid Panel 07/18/23 E55.9 - Vitamin D deficiency, unspecified, E78.9 - Disorder of lipoprotein metabolism, unspecified, F33.9 - Major depressive disorder, recurrent, unspecified, F41.1 - Generalized anxiety disorder, M79.10 - Myalgia, unspecified site, M79.7 - Fibromyalgia, R00.2 - Palpitations, R23.2 - Flushing, R23.3 - Spontaneous ecchymoses, R31.9 - Hematuria, unspecified, R32 - Unspecified urinary incontinence, R53.83 - Other fatigue, R63.4 - Abnormal weight loss Vitamin D 25-OH (D2 and D3) 07/18/23 E55.9 - Vitamin D deficiency, unspecified, E78.9 - Disorder of lipoprotein metabolism, unspecified, F33.9 - Major depressive disorder, recurrent, unspecified, F41.1 - Generalized anxiety disorder, M79.10 - Myalgia, unspecified site, M79.7 - Fibromyalgia, R00.2 - Palpitations, R23.2 - Flushing, R23.3 - Spontaneous ecchymoses, R31.9 - Hematuria, unspecified, R32 - Unspecified urinary incontinence, R53.83 - Other fatigue, R63.4 - Abnormal weight loss Vitamin B12 07/18/23 E55.9 - Vitamin D deficiency, unspecified, E78.9 - Disorder of lipoprotein metabolism, unspecified, F33.9 - Major depressive disorder, recurrent, unspecified, F41.1 - Generalized anxiety disorder, M79.10 - Myalgia, unspecified site, M79.7 - Fibromyalgia, R00.2 - Palpitations, R23.2 - Flushing, R23.3 - Spontaneous ecchymoses, R31.9 - Hematuria, unspecified, R32 - Unspecified urinary incontinence, R53.83 - Other fatigue, R63.4 - Abnormal weight loss TSH reflex Free T4 07/18/23 E55.9 - Vitamin D deficiency, unspecified, E78.9 - Disorder of lipoprotein metabolism, unspecified, F33.9 - Major depressive disorder, recurrent, unspecified, F41.1 - Generalized anxiety disorder, M79.10 - Myalgia, unspecified site, M79.7 - Fibromyalgia, R00.2 - Palpitations, R23.2 - Flushing, R23.3 - Spontaneous ecchymoses, R31.9 - Hematuria, unspecified, R32 - Unspecified urinary incontinence, R53.83 - Other fatigue, R63.4 - Abnormal weight loss Coding Level of Care Code Tele Est Pt Level 4 (61285) Diagnoses Chronic fatigue R53.82 Fatigue type: chronic, unspecified Mixed stress and urge urinary incontinence N39.46 Urinary Incontinence type: mixed stress and urge incontinence Anxiety, generalized F41.1 Weight loss R63.4 Easy bruising R23.3 Other microscopic hematuria R31.29 Hematuria type: other microscopic Recurrent major depressive disorder, in partial remission F33.41 Active/Remission status: in partial remission Fibromyalgia M79.7 Vitamin D deficiency E55.9 Hot flashes R23.2 Myalgia M79.10 Lipid disorder E78.9 Heart palpitations R00.2 Time Spent (min) 30 Comment 5 prep, 20 with patient , 5 charting , labs
== END ==
PROVIDERS: PCP Internal Medicine; Visit Provider Internal Medicine
DX: R53.82 Chronic fatigue, unspecified (principal); F33.41 Major depressive disorder, recurrent, in partial remission; N39.46 Mixed incontinence; F41.1 Generalized anxiety disorder; R63.4 Abnormal weight loss; R23.3 Spontaneous ecchymoses; R31.29 Other microscopic hematuria; M79.7 Fibromyalgia; E55.9 Vitamin D deficiency, unspecified; R23.2 Flushing; M79.10 Myalgia, unspecified site; R00.2 Palpitations
CPT/HCPCS: 99214

== ENCOUNTER 2023-07-18 10:11 | Outpatient (REF) | payer OTHER, SELFPAY ==
[2023-07-18 13:06] LABS: MANUAL DIFF FLAG NO
[2023-07-18 13:26] LABS: Basophils Absolute Auto 0.1 X10*3/uL (0.0-0.2); Basophils Percent Auto 1.3 % (0-2); Eosinophils Absolute Auto 0.2 X10*3/uL (0.0-0.4); Eosinophils Percent Auto 2.5 % (0-4); Hematocrit 42.6 % (37.0-47.0); Hemoglobin 13.9 g/dl (12.0-16.0); Imm Gran Abs Auto 0.01 X10*3/uL (0.00-0.03); Imm Gran Pct Auto 0.1 % (0.0-0.4); Lymphocytes Absolute Auto 2.5 X10*3/uL (1.2-4.9); Mean Corpuscular HGB Conc 32.6 g/dl (31.0-35.0); Mean Corpuscular Hemoglobin 30.4 pg (27.0-33.0); Mean Corpuscular Volume 93.2 fL (80.0-98.0); Mean Platelet Volume 11.8 fL (9.4-12.3); Monocytes Absolute Auto 0.6 X10*3/uL (0.1-1.2); Neutrophils Absolute Auto 3.3 x10*3/uL (2.0-8.3); Neutrophils Percent Auto 50.1 % (45-73); Platelet Count 364 X10*3/uL (160-400); Red Blood Count 4.57 X10*6/uL (4.20-5.50); Red Cell Distribution Width 12.6 % (11.0-16.0); White Blood Count 6.7 X10*3/uL (4.8-10.8)
[2023-07-18 13:27] LABS: Appearance Urine Clear; Color Urine Yellow; Glucose Urine UA Negative (Negative); Leukocyte Esterase Urine Negative (Negative); Nitrite Urine Negative (Negative); PH 5.5 (5.0-9.0); UMIC TRIGGER UACC YES; Urine Blood Small (1+) (Negative); Urine Ketones Negative (Negative); Urine Protein Negative (Neg-Trace)
[2023-07-18 13:38] LABS: Bacteria Urine Trace (None Seen); Hyaline Casts Urine 0-2 /LPF (0-2); RBC Urine 0-2 /HPF (0-2); WBC Urine 0-5 /HPF (0-5)
[2023-07-18 13:57] LABS: Alanine Aminotransferase 20 U/L (0-31); Alkaline Phosphatase 107 U/L (39-117); Anion Gap 10 (12-20); Aspartate Amino Transferase 27 U/L (5-31); Bilirubin Total 0.4 mg/dL (0.0-1.0); Blood Urea Nitrogen 16 mg/dL (9-16); Calcium 9.4 mg/dL (8.4-10.2); Carbon Dioxide 26 mmol/L (22-29); Chloride 107 mmol/L (96-108); Cholesterol 234 mg/dL (<200); Estimated Glomerular Filt Rate > 60; Glucose Fasting 86 mg/dL (60-99); HDL Cholesterol 81 mg/dL (>40); Iron 80 mcg/dL (30-160); LDL Cholesterol Calculated 135 mg/dL (<100); Percent Iron Saturation 28 % (15-50); Potassium 3.8 mmol/L (3.3-5.1); Sodium 139 mmol/L (135-145); Total Iron Binding Capacity 290 mcg/dL (228-428); Total Protein 7.4 g/dL (6.5-8.0); Triglycerides 91 mg/dL (<150); Unsaturated Iron Binding 210 ug/dL
[2023-07-18 14:04] LABS: Vitamin B12 1274 pg/mL (200-900)
[2023-07-18 14:05] LABS: Ferritin 74 ng/mL (10-250); TSH reflex Free T4 1.44 uIU/mL (0.32-4.0)
[2023-07-22 00:22] LABS: Zinc 81 mcg/dL (60-130)
[2023-07-22 15:13] LABS: Vitamin D 25-OH, D2 <4 ng/mL; Vitamin D 25-OH, D3 54 ng/mL; Vitamin D 25-OH, Total 54 ng/mL (30-100)
== END 2023-07-18 10:12 | disposition home or self-care (01) ==
LOC: HO.HMGCLDS 10:11
PROVIDERS: PCP Internal Medicine; Visit Provider Internal Medicine
DX: R53.83 Other fatigue (principal); H53.8 Other visual disturbances; M76.61 Achilles tendinitis, right leg; E78.9 Disorder of lipoprotein metabolism, unspecified; K21.9 Gastro-esophageal reflux disease without esophagitis; M79.7 Fibromyalgia; E55.9 Vitamin D deficiency, unspecified; R32 Unspecified urinary incontinence; F41.1 Generalized anxiety disorder; R63.4 Abnormal weight loss; R23.3 Spontaneous ecchymoses; R31.9 Hematuria, unspecified; R23.2 Flushing; R00.2 Palpitations
CPT/HCPCS: 36415; 80053; 80061; 81001; 82306; 82607; 82728; 83540; 84443; 84630; 85025

== ENCOUNTER 2023-07-23 10:24 | Outpatient (AMB) | payer OTHER, SELFPAY ==
[2023-07-23 10:31] VITALS: BP 104/58; PULSE 80; O2SAT 97; BMI 29.9
--- NOTE | 2023-07-23 10:31 | A.OFFPC_ITS ---
Vital Signs 07/23/23 10:31 Height 5 ft 4 in Weight 174 lb 3 oz BMI 29.9 BP 104/58 L Blood Pressure Location Rt brachial Position Sitting Pulse 80 Pulse Source Pulse Oximeter Pulse Oximetry (%) 97 Oxygen Delivery Method Room Air Intake Visit Reasons: F/U ~ Allergies cat dander [cats] Allergy (Intermediate, Verified 07/23/23 10:31) Itchy Eyes and burning cigarette smoke Allergy (Intermediate, Verified 07/23/23 10:31) migraines latex Allergy (Intermediate, Verified 07/23/23 10:31) Rash trazodone Allergy (Intermediate, Verified 07/23/23 10:31) palpitations Penicillins Adverse Reaction (Intermediate, Verified 07/23/23 10:31) Abdominal Pain tamsulosin Allergy (Severe, Uncoded 05/06/23 13:03) Dizziness Medication List - Last Reconciled 07/23/23 by Gaudencio Ballard MD [Adult Sanitary Wipes As directed] cholecalciferol (vitamin D3) 25 mcg PO DAILY 90 days gabapentin 300 mg PO BEDTIME 90 days magnesium 250 mg PO BID naproxen 500 mg PO BID PRN 30 days omega 4-voz-hrc-fish oil 60-90-500 mg (Fish Oil) 1 cap PO DAILY [Poise incontinence pads Requires poise due to allergies. NS] pyridoxine (vitamin B6) 100 mg PO DAILY venlafaxine ER 150 mg PO BEDTIME 90 days Tobacco use date assessed: 07/23/23 Dental Screening Dental Screen Date: 07/23/23 Did you have a dental visit in the last 12 months?: Yes Did you have a dental problem in the last 6 months where you did not have access to dental care?: No Was dental information given to patient?: Patient has dentist HPI F/U ~ HPI Details Patient is a 58-year-old female came in today to have a follow-up The patient's eyes look better today they have pain tearing she has seen 2 ophthalmologists She says that when she called in cold air that is when they start tearing. Patient has appointment with Rheumatology coming up 20 of August, she is complaining of bilateral knee discomfort which has been a chronic problem Patient says that her daughter is helping her now she is her personal care home administrator. Labs reviewed with the patient, B12 level is high, she is on supplement that she will stop Other than that liver functions intact, kidney functions intact, LDL is in 130s. Vitamin-D level is normal. Patient continued to have hot flashes, she is on venlafaxine for anxiety and hot flashes And also gabapentin for fibromyalgia through PCP office. She has appointment coming up again August 23 we talked about it, patient says that she would like to keep the appointment for now [facility] Medical History Microscopic hematuria Hot flashes Vitamin D deficiency Fibromyalgia Osteoarthritis Chronic GERD Depression, major, recurrent Surgical History History of esophagogastroduodenoscopy (EGD) H/O colonoscopy History of hysterectomy History of surgery Family History Father No problems noted. Mother Asthma Dementia Alzheimer's disease Paternal Aunt Lung cancer Breast cancer Brother No problems noted. Brother No problems noted. Brother No problems noted. Sister No problems noted. Sister No problems noted. Sister No problems noted. Paternal Aunt Breast cancer, Onset Age: 70 Other Mental health disorder Social History Household Members: Significant Other and Children Household Members Other:: 2 children Housing: House Are you a primary career coach to a significant other at home: No Do you presently have visiting nurse or other home services: No Alcohol intake: never Patient Tobacco Use Status: Never used Tobacco e-Cigarette/Vaping Use: Never Used service: No Current occupational status: unemployed Cognitive needs: No Hearing needs: No Vision needs: Yes Female Reproductive History Menstrual Age of Menarche: 15 Questionnaire PHQ-9 Over the last 2 weeks, how often have you been bothered by any of the following problems? 1. Little interest or pleasure in doing things: several days 2. Feeling down, depressed, or hopeless: not at all 3. Trouble falling or staying asleep, or sleeping too much: nearly every day 4. Feeling tired or having little energy: nearly every day 5. Poor appetite or overeating: several days 6. Feeling bad about yourself - or that you are a failure or have let yourself or your family down: not at all 7. Trouble concentrating on things, such as reading the newspaper or watching television: several days 8. Moving or speaking so slowly that other people could have noticed. Or the opposite - being so fidgety or restless that you have been moving around a lot more than usual: not at all 9. Thoughts that you would be better off or of hurting yourself in some way: not at all Total score: 9 Depression Screening Interpretation: Negative Depression Screening Done: Yes 96422 - PHQ-9 Billing: Yes Source: Developed by Drs. Gatito Agustin, Adrien Stevenson and colleagues, with an educational kori from [employer]. Thrive Questionnaire Date Thrive assessed: 03/20/23 OLI-7 AMB Questionnaire OLI-7 Date OIL - 7 assessed: 03/20/23 Source: Developed by Drs. Gatito Agustin, Catina Hunter, Adrien Liao and colleagues, with an educational kori from [employer]. Review of Systems Const Denies chills and Denies fever(s) ENT Denies epistaxis and Denies nasal discharge Card Denies chest pain Resp Denies chest congestion, Denies cough and Denies hemoptysis GI Denies diarrhea and Denies nausea Skin/Breast Denies rash Neuro Reports no additional complaints Psych Reports no additional complaints Endo Reports no additional complaints Physical exam (Primary Care) Vital Signs: Last Vital Signs Pulse 80 07/23/23 10:31 BP 104/58 L 07/23/23 10:31 Pulse Ox 97 07/23/23 10:31 Oxygen Delivery Method Room Air 07/23/23 10:31 BMI result Body Mass Index 29.9 Tobacco/Smoking Status: Tobacco use Status Tobacco use date assessed 07/23/23 07/23/23 10:32 Patient Tobacco Use Status Never used Tobacco 07/23/23 10:32 e-Cigarette/Vaping Use Never Used 07/23/23 10:32 PHQ-9: PHQ-9 Score PHQ-9: Total score 9 07/23/23 11:32 Depression Screening Interpretation: Negative Thrive Assessment: Date of Thrive Assessment Date Thrive assessed 03/20/23 07/23/23 10:32 Const General: cooperative, comfortable and no acute distress Orientation/consciousness: patient oriented x3 HENMT Head: Yes normocephalic Eyes General: appearance normal, both eyes and all related structures Neck Neck: Yes supple Resp Effort & Inspection: normal respiratory effort, no cough and no stridor Cardio Rhythm: regular rhythm Heart sounds: S1 normal heart sound present and S2 normal heart sound present Skin General skin exam: turgor normal Neuro General: patient oriented x3, tone normal and moves all extremities Extrem Other: Both knees exam within normal limit Right lower extremity: no edema Left lower extremity: no edema Assessment and Plan Assessment & Plan (1) Fatigue: Code(s): R53.83 - Other fatigue Qualifiers: Fatigue type: chronic, unspecified Qualified Code(s): R53.82 - Chronic fatigue, unspecified (2) Urine incontinence: Code(s): R32 - Unspecified urinary incontinence Qualifiers: Urinary Incontinence type: mixed stress and urge incontinence Qualified Code(s): N39.46 - Mixed incontinence (3) Anxiety, generalized: Code(s): F41.1 - Generalized anxiety disorder (4) Blood in urine: Code(s): R31.9 - Hematuria, unspecified Qualifiers: Hematuria type: other microscopic Qualified Code(s): R31.29 - Other microscopic hematuria (5) Depression, major, recurrent: Code(s): F33.9 - Major depressive disorder, recurrent, unspecified Qualifiers: Active/Remission status: in partial remission Qualified Code(s): F33.41 - Major depressive disorder, recurrent, in partial remission (6) Fibromyalgia: Code(s): M79.7 - Fibromyalgia (7) Hot flashes: Code(s): R23.2 - Flushing (8) Bilateral knee pain: Code(s): M25.561 - Pain in right knee; M25.562 - Pain in left knee Qualifiers: Chronicity: chronic Qualified Code(s): M25.561 - Pain in right knee; M25.562 - Pain in left knee; G89.29 - Other chronic pain Plan Patient is a 58-year-old female came in today to have a follow-up The patient's eyes look better today they have pain tearing she has seen 2 ophthalmologists She says that when she called in cold air that is when they start tearing. Patient has appointment with Rheumatology coming up 20 of August, she is complaining of bilateral knee discomfort which has been a chronic problem Patient says that her daughter is helping her now she is her personal care home administrator. Labs reviewed with the patient, B12 level is high, she is on supplement that she will stop Other than that liver functions intact, kidney functions intact, LDL is in 130s. Vitamin-D level is normal. Patient have chronic urinary incontinence and has seen urologist. She also have a chronic blood in her urine Patient continued to have hot flashes, she is on venlafaxine for anxiety/depression and hot flashes And also gabapentin for fibromyalgia through PCP office. She has appointment coming up again August 23 we talked about it, patient says that she would like to keep the appointment for now Coding Level of Care Code Est Pt Level 4 ([id number]) Diagnoses Chronic fatigue R53.82 Fatigue type: chronic, unspecified Mixed stress and urge urinary incontinence N39.46 Urinary Incontinence type: mixed stress and urge incontinence Anxiety, generalized F41.1 Other microscopic hematuria R31.29 Hematuria type: other microscopic Recurrent major depressive disorder, in partial remission F33.41 Active/Remission status: in partial remission Fibromyalgia M79.7 Hot flashes R23.2 Chronic pain of both knees M25.561; M25.562; G89.29 Chronicity: chronic
== END 2023-07-23 12:28 | disposition home or self-care (01) ==
PROVIDERS: PCP Internal Medicine; Visit Provider Internal Medicine
DX: R53.82 Chronic fatigue, unspecified (principal); N39.46 Mixed incontinence; F41.1 Generalized anxiety disorder; F33.41 Major depressive disorder, recurrent, in partial remission; R31.29 Other microscopic hematuria; M79.7 Fibromyalgia; R23.2 Flushing; M25.561 Pain in right knee; M25.562 Pain in left knee; G89.29 Other chronic pain
CPT/HCPCS: 99214

== ENCOUNTER 2023-08-20 12:47 | Outpatient (AMB) | payer OTHER, SELFPAY ==
--- NOTE | 2023-08-20 12:54 | A.OFFVIS_ITS ---
Intake Vital Signs 08/20/23 12:57 Height 5 ft 4 in Weight 170 lb 6.677 oz BMI 29.2 BP 102/80 Blood Pressure Location Rt brachial Position Sitting Pulse 68 Pulse Source Pulse Oximeter Temp 97.4 F Temp Source Skin Pulse Oximetry (%) 98 Oxygen Delivery Method Room Air Intake Visit Reasons: FM Intake Note: New pt presents today for fibromyalgia consult. Former patient of [facility]. 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 Accompanied by: Self / Same As Patient Allergies cat dander [cats] Allergy (Intermediate, Verified 08/20/23 13:00) Itchy Eyes and burning cigarette smoke Allergy (Intermediate, Verified 08/20/23 13:00) migraines latex Allergy (Intermediate, Verified 08/20/23 13:00) Rash trazodone Allergy (Intermediate, Verified 08/20/23 13:00) palpitations Penicillins Adverse Reaction (Intermediate, Verified 08/20/23 13:00) Abdominal Pain tamsulosin Allergy (Severe, Uncoded 08/20/23 13:00) Dizziness Medication List - Last Reconciled 08/20/23 by Anotinette Carlisle MD [Adult Sanitary Wipes As directed] albuterol sulfate 2.5 mg (3 mL) inhalation QID PRN cholecalciferol (vitamin D3) 25 mcg PO DAILY 90 days gabapentin 300 mg PO BEDTIME 90 days magnesium 250 mg PO BID naproxen 500 mg PO BID PRN 30 days omega 8-urc-xrj-fish oil 60-90-500 mg (Fish Oil) 1 cap PO DAILY [Poise incontinence pads Requires poise due to allergies. NS] pyridoxine (vitamin B6) 100 mg PO DAILY turmeric mg PO venlafaxine ER 150 mg PO BEDTIME 90 days HPI HPI Comments History of Present Illness Details This is a 58-year-old female who presents for evaluation of diffuse pain, she states that she has bilateral elbow pain, bilateral shoulder pain, worse on the left, intermittent left knee swelling. She has been following up at [facility] and received an injection in the left shoulder which provided short-lived relief. She also states that she had a reaction to the injection with swelling of her face. She also mentions that she received injections in her lower back years ago by Pain Management which were helpful. She would like to be referred 1 more time to pain management. With regards to her fibromyalgia she goes to the gym every other day she does swimming, light weights and cycling. She states that if she does not exercise regularly her pains are worse. She mentions that she had a sleep study within the last 2 months and according to patient it was unremarkable. [facility] Medical History Microscopic hematuria Hot flashes Vitamin D deficiency Fibromyalgia Osteoarthritis Chronic GERD Depression, major, recurrent Surgical History History of esophagogastroduodenoscopy (EGD) H/O colonoscopy History of hysterectomy History of surgery Family History Father No problems noted. Mother Asthma Dementia Alzheimer's disease Paternal Aunt Lung cancer Breast cancer Brother No problems noted. Brother No problems noted. Brother No problems noted. Sister No problems noted. Sister No problems noted. Sister No problems noted. Paternal Aunt Breast cancer, Onset Age: 70 Other Mental health disorder Social History Household Members: Significant Other and Children Household Members Other:: 2 children Housing: House Are you a primary resident care manager rn to a significant other at home: No Do you presently have visiting nurse or other home services: No Alcohol intake: never Patient Tobacco Use Status: Never used Tobacco e-Cigarette/Vaping Use: Never Used service: No Current occupational status: unemployed and disabled Cognitive needs: No Hearing needs: No Vision needs: Yes Female Reproductive History Menstrual Age of Menarche: 15 Review of Systems Const Reports fatigue Eyes Reports dry eyes Resp Reports wheezing Musc Reports arthralgias, Reports joint swelling and Reports muscle weakness Endo Reports fatigue Aller/Immun Reports wheezing Physical Exam Vital Signs: Last Vital Signs Temp 97.4 F 08/20/23 12:57 Pulse 68 08/20/23 12:57 BP 102/80 08/20/23 12:57 Pulse Ox 98 08/20/23 12:57 Oxygen Delivery Method Room Air 08/20/23 12:57 BMI result Body Mass Index 29.2 Const General: cooperative, healthy appearing and comfortable Nutritional Appearance: overweight Orientation/consciousness: patient oriented x3 Limitations: no limitations HEENT Head: Yes normocephalic and Yes atraumatic Mouth: moist mucous membranes Resp Effort & Inspection: normal respiratory effort and able to speak in complete sentences Auscultation: clear to auscultation bilaterally Cardio Rate: regular rate GI Inspection: No distended Palpation (GI): Soft to palpation and nontender Skin General skin exam: no rashes or lesions noted Neuro General: patient oriented x3 Extrem Other: Multiple fibromyalgia tender points No active synovitis Normal nailfold capillaroscopy Tenderness upon palpation of the common extensor origin bilaterally Normal range of motion of both shoulders Positive empty can test bilaterally Positive straight leg raise test bilaterally Assessment & Plan Assessment & Plan (1) Lumbar degenerative disc disease: Code(s): M51.36 - Other intervertebral disc degeneration, lumbar region Plan: Patient received epidural injections in the past which helped. She would like to to be re-evaluated by Pain Management (2) Fibromyalgia: Code(s): M79.7 - Fibromyalgia Plan: Discussed management of fibromyalgia with patient. Is a noninflammatory, non- autoimmune central afferent processing disorder leading to a diffuse pain syndrome. I suggested that patient try to address her underlying psychiatric issues, anxiety/depression. I suggested evaluation by a therapist and/or a psychiatrist. \Try to follow sleep hygiene practices. Patient goes to the gym every other day and does different exercises including swimming, light weights and cycling. Advised patient to continue with that Follow-up with PCP (3) Lateral epicondylitis of both elbows: Code(s): M77.11 - Lateral epicondylitis, right elbow; M77.12 - Lateral epicondylitis, left elbow Plan: Referred to Occupational therapy Plan I spent 25 minutes reviewing patient's chart, evaluating patient, placing orders, counseling patient and documenting in the chart Orders: Orders OT Evaluation and Treatment Today M77.11 - Lateral epicondylitis, right elbow, M77.12 - Lateral epicondylitis, left elbow Referrals Pain Management Referral M51.36 - Other intervertebral disc degeneration, lumbar region Coding Level of Care Code New Pt Level 3 (32594) Diagnoses Lumbar degenerative disc disease M51.36 Fibromyalgia M79.7 Lateral epicondylitis of both elbows M77.11; M77.12
[2023-08-20 12:57] VITALS: BP 102/80; PULSE 68; TEMP 36.3; O2SAT 98; BMI 29.2
== END 2023-08-20 13:18 | disposition home or self-care (01) ==
PROVIDERS: PCP Internal Medicine; Visit Provider Student in an Organized Health Care Education/Training Program
DX: M51.36 Other intervertebral disc degeneration, lumbar region (principal); M79.7 Fibromyalgia; M77.11 Lateral epicondylitis, right elbow; M77.12 Lateral epicondylitis, left elbow
CPT/HCPCS: 99203

== ENCOUNTER → 2023-08-20 12:47 | Outpatient (BNVA) | payer OTHER, SELFPAY | PROVIDERS: PCP Internal Medicine; Visit Provider Student in an Organized Health Care Education/Training Program | DX: M51.36 Other intervertebral disc degeneration, lumbar region (principal); M79.7 Fibromyalgia; M77.11 Lateral epicondylitis, right elbow; M77.12 Lateral epicondylitis, left elbow | CPT/HCPCS: 99202 ==

== ENCOUNTER 2023-09-06 09:53 | Outpatient (AMB) | payer OTHER, SELFPAY ==
[2023-09-06 09:57] VITALS: BP 104/64; PULSE 74; O2SAT 96
--- NOTE | 2023-09-06 09:57 | MHC.PC.OV ---
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 Allergies cat dander [cats] Allergy (Intermediate, Verified 09/06/23 09:57) Itchy Eyes and burning cigarette smoke Allergy (Intermediate, Verified 09/06/23 09:57) migraines latex Allergy (Intermediate, Verified 09/06/23 09:57) Rash trazodone Allergy (Intermediate, Verified 09/06/23 09:57) palpitations Penicillins Adverse Reaction (Intermediate, Verified 09/06/23 09:57) Abdominal Pain tamsulosin Allergy (Severe, Uncoded 08/20/23 13:00) Dizziness Medication List - Last Reconciled 09/06/23 by Gaudencio Ballard MD [Adult Sanitary Wipes As directed] albuterol sulfate 2.5 mg (3 mL) inhalation QID PRN cholecalciferol (vitamin D3) 25 mcg PO DAILY 90 days gabapentin 300 mg PO BEDTIME 90 days magnesium 250 mg PO BID naproxen 500 mg PO BID PRN 30 days omega 2-rur-wkk-fish oil 60-90-500 mg (Fish Oil) 1 cap PO DAILY [Poise incontinence pads Requires poise due to allergies. NS] pyridoxine (vitamin B6) 100 mg PO DAILY turmeric mg PO venlafaxine ER 150 mg PO BEDTIME 90 days Tobacco use date assessed: 09/06/23 Dental Screening Dental Screen Date: 09/06/23 Did you have a dental visit in the last 12 months?: Yes Did you have a dental problem in the last 6 months where you did not have access to dental care?: No Was dental information given to patient?: Patient has dentist HPI Rash HPI Details Patient is a 58-year-old female came in today to be evaluated for rash Patient says that the rash appeared 3 months ago and it comes and goes She has been using hydrocortisone cream which helps paid the rash but does not resolves. Patient does admit to having history of eczema when she was young She also have asthma and uses updraft machine as needed, patient is requesting a script for updraft machine tubing We have sent that to [facility] eczema I am prescribing clobetasol cream , patient was instructed to use it for 10 days and then take a break of 10 days before she use it again. [facility] Medical History Microscopic hematuria Hot flashes Vitamin D deficiency Fibromyalgia Osteoarthritis Chronic GERD Depression, major, recurrent Surgical History History of esophagogastroduodenoscopy (EGD) H/O colonoscopy History of hysterectomy History of surgery Family History Father No problems noted. Mother Asthma Dementia Alzheimer's disease Paternal Aunt Lung cancer Breast cancer Brother No problems noted. Brother No problems noted. Brother No problems noted. Sister No problems noted. Sister No problems noted. Sister No problems noted. Paternal Aunt Breast cancer, Onset Age: 70 Other Mental health disorder Social History Household Members: Significant Other and Children Household Members Other:: 2 children Housing: House Are you a primary medicare biller to a significant other at home: No Do you presently have visiting nurse or other home services: No Alcohol intake: never Patient Tobacco Use Status: Never used Tobacco e-Cigarette/Vaping Use: Never Used service: No Current occupational status: unemployed and disabled Cognitive needs: No Hearing needs: No Vision needs: Yes Female Reproductive History Menstrual Age of Menarche: 15 Questionnaire Thrive Questionnaire Date Thrive assessed: 03/20/23 I am a: Patient What is your living situation today?: I have a steady place to live Within the past 12 months, did the food you bought not last and you didn't have the money to get more?: Never true Within the past 12 months, did you worry whether your food would run out before you got money to buy more?: Never true Please select the resources that you would like help with: Utilities THRIVE Score: 0 OLI-7 AMB Questionnaire OLI-7 Date OLI - 7 assessed: 03/20/23 Feeling nervous, anxious, or on edge: 1 = Several days Not being able to stop or control worryin = Several days Worrying too much about different things: 1 = Several days Trouble relaxin = Several days Being so restless that it is hard to sit still: 1 = Several days Becoming easily annoyed or irritable: 1 = Several days Feeling afraid as if something awful might happen: 0 = Not at all Total OLI-7 score (0-4 normal; 5-9 mild; 10-14 moderate; 15-21 severe): 6 Source: Developed by Drs. Gatito Agustin, Catina Hunter, Adrien Liao and colleagues, with an educational kori from [employer]. Review of Systems Const Denies chills and Denies fever(s) ENT Denies epistaxis and Denies nasal discharge Card Denies chest pain Resp Denies chest congestion, Denies cough and Denies hemoptysis GI Denies diarrhea and Denies nausea Neuro Reports no additional complaints Psych Reports no additional complaints Endo Reports no additional complaints Physical exam (Primary Care) Vital Signs: Last Vital Signs Pulse 74 09/06/23 09:57 BP 104/64 09/06/23 09:57 Pulse Ox 96 09/06/23 09:57 Oxygen Delivery Method Room Air 09/06/23 09:57 Tobacco/Smoking Status: Tobacco use Status Tobacco use date assessed 09/06/23 09/06/23 10:00 Patient Tobacco Use Status Never used Tobacco 09/06/23 10:00 e-Cigarette/Vaping Use Never Used 09/06/23 10:00 Thrive Assessment: Date of Thrive Assessment Date Thrive assessed 03/20/23 09/06/23 10:00 Const General: cooperative, comfortable and no acute distress Orientation/consciousness: patient oriented x3 HENMT Head: Yes normocephalic Head images: 1. Erythematous eczematous rash Eyes General: appearance normal, both eyes and all related structures Neck Neck: Yes supple Resp Effort & Inspection: normal respiratory effort, no cough and no stridor Cardio Rhythm: regular rhythm Heart sounds: S1 normal heart sound present and S2 normal heart sound present Skin General skin exam: turgor normal Neuro General: patient oriented x3, tone normal and moves all extremities Extrem Right lower extremity: no edema Left lower extremity: no edema Assessment and Plan Assessment & Plan (1) Eczema: Code(s): L30.9 - Dermatitis, unspecified Qualifiers: Eczema type: flexural Qualified Code(s): L20.82 - Flexural eczema (2) Asthma, moderate: Code(s): J45.909 - Unspecified asthma, uncomplicated Qualifiers: Asthma complication type: uncomplicated Asthma persistence: unspecified Qualified Code(s): J45.909 - Unspecified asthma, uncomplicated Plan Patient is a 58-year-old female came in today to be evaluated for rash Patient says that the rash appeared 3 months ago and it comes and goes She has been using hydrocortisone cream which helps paid the rash but does not resolves. Patient does admit to having history of eczema when she was young She also have asthma and uses updraft machine as needed, patient is requesting a script for updraft machine tubing We have sent that to [employer] store Four eczema I am prescribing clobetasol cream , patient was instructed to use it for 10 days and then take a break of 10 days before she use it again. Medications: New clobetasol 0.05% 1 appl topical DAILY 30 days 60 grams 0RF Eczema [Updraft machine tubing] As directed 1 ea 0RF J45.909 - Unspecified asthma, uncomplicated Coding Level of Care Code Est Pt Level 3 (16119) Diagnoses Flexural eczema L20.82 Eczema type: flexural Moderate asthma without complication, unspecified whether persistent J45.909 Asthma complication type: uncomplicated Asthma persistence: unspecified
== END 2023-09-06 10:58 | disposition home or self-care (01) ==
PROVIDERS: PCP Internal Medicine; Visit Provider Internal Medicine
DX: L20.82 Flexural eczema (principal); J45.909 Unspecified asthma, uncomplicated
CPT/HCPCS: 99213

== ENCOUNTER 2023-10-04 09:58 | Outpatient (REF) | payer OTHER, SELFPAY ==
--- NOTE | ~2023-10-04 | XR_ITS ---
EXAMINATION: XR LUMBOSACRAL SPINE WITH OBLIQUES CLINICAL INFORMATION: Low back pain with bilateral sciatica, left greater than right. COMPARISON: MRI lumbar spine 03/18/2023, x-ray lumbar spine 02/28/2023 and 06/15/2019. TECHNIQUE: Seven views of the lumbar spine inclusive of flexion and extension views. FINDINGS: Mild leftward curvature of the lumbar spine. Moderate degenerative changes in the bilateral sacroiliac joints. Facet arthritis in the mid to lower lumbar spine. Minimal grade 1 anterolisthesis of L4 on L5 with extension and flexion. Mild multilevel lumbar spondylosis with loss of disc space height, most notable at L4-L5 and L5-S1. XR/XR lumbar spine 6V w bending IMPRESSION: Mild multilevel lumbar spondylosis, most notable at L4-L5 and L5-S1.
== END 2023-10-04 09:59 | disposition home or self-care (01) ==
LOC: HO.XRAY 09:58
PROVIDERS: PCP Internal Medicine; Referring Provider Student in an Organized Health Care Education/Training Program; Visit Provider Nurse Practitioner Family
DX: M79.7 Fibromyalgia (principal); M25.50 Pain in unspecified joint; M47.26 Other spondylosis with radiculopathy, lumbar region; M51.36 Other intervertebral disc degeneration, lumbar region; M46.1 Sacroiliitis, not elsewhere classified; G89.4 Chronic pain syndrome
CPT/HCPCS: 72114; 99202

== ENCOUNTER 2023-10-04 09:58 | Outpatient (AMB) | payer OTHER, SELFPAY ==
--- NOTE | 2023-10-04 10:07 | A.OFFVIS_ITS ---
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 Accompanied by: Self / Same As Patient Allergies cat dander [cats] Allergy (Intermediate, Verified 10/04/23 10:11) Itchy Eyes and burning cigarette smoke Allergy (Intermediate, Verified 10/04/23 10:11) migraines latex Allergy (Intermediate, Verified 10/04/23 10:11) Rash trazodone Allergy (Intermediate, Verified 10/04/23 10:11) palpitations Penicillins Adverse Reaction (Intermediate, Verified 10/04/23 10:11) Abdominal Pain tamsulosin Allergy (Severe, Uncoded 08/20/23 13:00) Dizziness HPI Other intervertebral disc degen, lumbar region HPI Details Patient is a pleasant 58 years old female with prior history of fibromyalgia, multiple joint pain, anxiety, depression, low back pain, multiple surgeries x6 for urine incontinence and prolapse (PV sling and mesh [facility] presents today for initial evaluation of low back pain with radiation into her left lower extremity. Denies any recent trauma or injury but reports falls x2 recently due to left leg pain and weakness. Back pain is axial and also radiates into her left buttock and left lower extremity with tingling and paresthesias in her toes. She also experiences widespread body pain, left hand tingling and right foot tingling. She was previously seen at [facility] and received back injections with good relief. Pain affects her daily activities, mobility, sleep, social interactions, especially with her grandchildren. Patient reports she is unable to get back up if she bends down or flexes forward due to significant exacerbation of pain. Denies any fever, unintentional weight loss, dizziness, foot drop, bladder or bowel dysfunction, or saddle anesthesia. Reports intermittent left lower extremity weakness. In regards to fibromyalgia which she states was diagnosed after multiple urological surgeries in 2010, she goes to gym every other day doing treadmill, light weights and elliptical and on other days she does swimming. Patient reports if she does not exercise regularly, her widespread pain is worse which is accompanied by swelling sensations and spasms. She also belongs to a Fibromyalgia support group on [employer] and states this has been beneficial. Patient is interested in Cognitive Behavioral Therapy to help her with sleep and chronic pain. Location Lower back radiates to LLE posteriorly Duration Chronic pain, worsening for the past 6 months Characteristics of symptom or complaint Stabbing, sharp, shooting, aching, tingling, throbbing, radiating, tiring Aggravating or associated factors Standing, sitting for extended time, bending, cold weather changes Relieving factors Laying on side, gabapentin, NSAIDs, Tylenol, magnesium, turmeric Treatment Back injections, PT >3 years ago, gym, aqua therapy, acupuncture [facility] Medical History Microscopic hematuria Hot flashes Vitamin D deficiency Fibromyalgia Osteoarthritis Chronic GERD Depression, major, recurrent Surgical History History of esophagogastroduodenoscopy (EGD) H/O colonoscopy History of hysterectomy History of surgery Family History Father No problems noted. Mother Asthma Dementia Alzheimer's disease Paternal Aunt Lung cancer Breast cancer Brother No problems noted. Brother No problems noted. Brother No problems noted. Sister No problems noted. Sister No problems noted. Sister No problems noted. Paternal Aunt Breast cancer, Onset Age: 70 Other Mental health disorder Social History Household Members: Significant Other and Children Household Members Other:: 2 children Housing: House Are you a primary home care associate to a significant other at home: No Do you presently have visiting nurse or other home services: No Alcohol intake: never Patient Tobacco Use Status: Never used Tobacco e-Cigarette/Vaping Use: Never Used service: No Current occupational status: unemployed and disabled Cognitive needs: No Hearing needs: No Vision needs: Yes Female Reproductive History Menstrual Age of Menarche: 15 Review of Systems Const All systems reviewed & are unremarkable except as noted in HPI and below Physical Exam Vital Signs: Last Vital Signs Pulse 82 10/04/23 10:11 BP 128/74 10/04/23 10:11 Pulse Ox 99 10/04/23 10:11 Oxygen Delivery Method Room Air 10/04/23 10:11 BMI result Body Mass Index 29.1 General: Appears afebrile. Alert and oriented. Mood and affect appropriate. Follows and participates in conversation appropriately. Respiratory effort is unlabored. No cough. Able to transition from sit to stand unassisted. Ambulates with bilaterally normal heel strike and toe off, feels unsteady on the left. Back/Spine/Pelvis Other: Patient is able to walk and stand on heels and tip toes with mild difficulty on the left otherwise demonstrates good motor tone. Mildly antagic gait, no limping. Can flex forward to 65-70 degrees and extend to 5-10 degrees before experiencing lumbar pain. Demonstrates 5/5 strength of quadriceps bilaterally as well as flexion/dorsiflexion of bilateral feet against resistance. 2+ pedal pulses bilaterally. Straight leg rise with dorsiflexion positive on the left. +1 patellar and achilles reflexes bilaterally. Facet loading test positive bilaterally. Guillermo?s, [place]len, Pelvic compression and Stinchfield tests are positive bilaterally. No groin pain with I/E hip rotations. Multiple TTP 16/16 tender point upper and lower extremities and torso. Cervical Spine: cervical ROM normal, cervical muscular tenderness and No Cervical spine tenderness Thoracic/Lumbar Spine: thoracic and lumbar spine normal to inspection, No Thoracic/lumbar spine scar(s), Lasegue's sign positive on the left and diffuse, pain with thoraco-lumbar ROM, paraspinal muscle tenderness, thoraco-lumbar ROM limited, No thoracic spinal tenderness and lumbar spinal tenderness (L4-S1) Pelvis: buttock tenderness on the left Sacroiliac joints: bilaterally tender to palpation Results Reviewed Results Reviewed: No imaging results are available for review. Assessment & Plan Assessment & Plan (1) Fibromyalgia: Code(s): M79.7 - Fibromyalgia (2) Lumbar spondylosis: Code(s): M47.816 - Spondylosis without myelopathy or radiculopathy, lumbar region (3) Lumbar radiculopathy: Code(s): M54.16 - Radiculopathy, lumbar region (4) Lumbar degenerative disc disease: Code(s): M51.36 - Other intervertebral disc degeneration, lumbar region (5) Sacroiliitis: Code(s): M46.1 - Sacroiliitis, not elsewhere classified (6) Chronic pain syndrome: Code(s): G89.4 - Chronic pain syndrome Plan Lumbar spine imaging to assess degree of degenerative changes, any subluxation, listhesis, compression fractures or pars defects. We will also obtain MRI of the lumbar spine to assess for neural integrity and compression. Discussed interventional treatments for her axial low back pain and left sided radiculopathy, including diagnostic injections for potential Sprint PNS vs RFA procedures and therapeutic DAYNE injections. Patient also has significant exacerbation of pain with lumbar flexion indicating a discogenic source. We would need to review her MRI results for any degenerative changes on the endplates with Modic for potential BVN ablation. Informational pamphlets provided to patient. Continue NSAIDs, gabapentin, Tylenol, heat therapy, daily physical activity and aqua therapy as tolerated, good posture, adequate hydration, and weight optimization. Script provided for amitriptyline to improve sleep and pain. Side effects and precautions reviewed with patient. Script provided for Cognitive Behavioral Therapy via [employer]. All questions and concerns have been answered and patient agreed with the plan. Follow up for MRI/xray results and sooner as needed. Orders: Orders XR lumbar spine 6V w bending Today M47.816 - Spondylosis without myelopathy or radiculopathy, lumbar region, M54.16 - Radiculopathy, lumbar region, M79.7 - Fibromyalgia MR lumbar spine wo con Today M47.816 - Spondylosis without myelopathy or radiculopathy, lumbar region, M54.16 - Radiculopathy, lumbar region Medications: New amitriptyline 10 mg PO BEDTIME 30 days 30 tabs 0RF pain M47.816 - Spondylosis without myelopathy or radiculopathy, lumbar region, M54.16 - Radiculopathy, lumbar region, M79.7 - Fibromyalgia Coding Level of Care Code New Pt Level 4 (25003) Diagnoses Fibromyalgia M79.7 Lumbar spondylosis M47.816 Lumbar radiculopathy M54.16 Lumbar degenerative disc disease M51.36 Sacroiliitis M46.1 Chronic pain syndrome G89.4
[2023-10-04 10:11] VITALS: BP 128/74; PULSE 82; O2SAT 99; BMI 29.1
== END 2023-10-04 10:55 | disposition home or self-care (01) ==
PROVIDERS: PCP Internal Medicine; Referring Provider Student in an Organized Health Care Education/Training Program; Visit Provider Nurse Practitioner Family
DX: M79.7 Fibromyalgia (principal); M47.816 Spondylosis without myelopathy or radiculopathy, lumbar region; M54.16 Radiculopathy, lumbar region; M51.36 Other intervertebral disc degeneration, lumbar region; M46.1 Sacroiliitis, not elsewhere classified; G89.4 Chronic pain syndrome
CPT/HCPCS: 99204

== ENCOUNTER 2023-10-15 14:00 | Outpatient (REF) | payer OTHER, SELFPAY ==
--- NOTE | ~2023-10-15 | MM_ITS ---
EXAMINATION: MM DIAGNOSTIC DIGITAL BREAST TOMOSYNTHESIS, LEFT CLINICAL INFORMATION: Six-month follow-up left breast probably benign calcifications, upper outer quadrant, middle one third, followed since 03/06/2022. COMPARISON: Mammography: 04/12/2023, 10/08/2022, 06/18/2022, 03/06/2022, 02/28/2022, and 02/27/2021. TECHNIQUE: Digital left breast tomosynthesis is performed in both the craniocaudal and mediolateral oblique views along with computer-aided detection (CAD). Synthesized 2D images are generated from the tomosynthesis. In addition to standard views, 2-D spot magnification left CC and ML views were also obtained. FINDINGS: There are scattered areas of fibroglandular density (ACR BI-RADS breast composition Category b). Loosely grouped predominantly punctate calcifications in the upper outer quadrant left breast, middle one third, have remained unchanged in morphology and number since the prior 2 examinations, demonstrating stability for 1.5 years. No suspicious or aggressive changes. These remain probably benign, and final 6 month interval follow-up left diagnostic mammography recommended. Otherwise, no suspicious masses, other suspicious grouped calcifications, or areas of architectural distortion. The parenchymal pattern is stable from prior exams. Stable circumscribed densities are unchanged from multiple prior exams and on today's exam small fatty notches can be observed, suggesting these are benign small intramammary lymph nodes. MM/MM tomosynthesis diagnostic LT IMPRESSION: There are no findings in the left breast suggestive of malignancy. There are stable probably benign left breast calcifications. Final six-month interval follow-up left magnification diagnostic mammography recommended to ensure two-year stability. Stable benign probable intramammary lymph nodes. ASSESSMENT: BI-RADS BI-RADS 3 - Probably benign finding(s) - 6 month follow-up suggested RECOMMENDATION: 6 Month F/U Results were provided to the patient at time of visit by the technologist. This patient's information was entered into a reminder system with a target due date for their next mammogram.
== END 2023-10-15 14:01 | disposition home or self-care (01) ==
LOC: HO.MAMMO 14:00
PROVIDERS: PCP Internal Medicine; Visit Provider Internal Medicine
DX: R92.1 Mammographic calcification found on diagnostic imaging of breast (principal)
CPT/HCPCS: 77061; 77065

== ENCOUNTER → 2023-10-15 14:30 | Outpatient (BNV) | payer OTHER, SELFPAY | PROVIDERS: PCP Internal Medicine; Visit Provider Radiology Diagnostic Radiology | DX: R92.1 Mammographic calcification found on diagnostic imaging of breast (principal) | CPT/HCPCS: 77065; G0279 ==

== ENCOUNTER 2023-11-07 15:03 | Outpatient (AMB) | payer OTHER, SELFPAY ==
--- NOTE | 2023-11-07 15:04 | MHC.OFFVIS ---
Intake Vital Signs 11/07/23 15:12 Height 5 ft 4 in Weight 175 lb BMI 30.0 BP 133/78 Blood Pressure Location Lt brachial Position Sitting Pulse 85 Intake Visit Reasons: 6 month follow up visit, breast exam Intake Note: Patient is seen in office for 6 month follow up visit, breast exam. Pt c/o:per pt had mm done and was told she has a mass that is probably benign she prefer to have a bx if possible to find out if it's really benign, also has a cyst on the breast that is bothering her since she sleeps on her stomach and would like to have it surgically removed if possible. 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 Present Accompanied by: Family/Other Allergies cat dander [cats] Allergy (Intermediate, Verified 11/07/23 15:12) Itchy Eyes and burning cigarette smoke Allergy (Intermediate, Verified 11/07/23 15:12) migraines latex Allergy (Intermediate, Verified 11/07/23 15:12) Rash trazodone Allergy (Intermediate, Verified 11/07/23 15:12) palpitations Penicillins Adverse Reaction (Intermediate, Verified 11/07/23 15:12) Abdominal Pain tamsulosin Allergy (Severe, Uncoded 11/07/23 15:12) Dizziness HPI HPI Comments History of Present Illness Details 58-year-old female patient returning for follow-up breast examination for a palpable left breast lump. Workup with mammogram of 04/12/2023 revealed loosely grouped predominantly punctate calcifications in the upper outer quadrant of the left breast middle 3rd. This has been followed for the past 1.5 years without significant change. Her most recent mammogram performed on 10/15/2023 revealed no significant change in the left breast calcifications. This was felt to be low suspicion for malignancy (BI-RADS 3) and follow-up bilateral diagnostic mammogram recommended in 6 months to conclude the 2 year follow-up to document stability. Previous examination revealed fibrocystic change with no suspicious densities. She is with 1 miscarriage. Her family history is significant for 2 paternal aunts with breast cancer 1 who recently . [facility] Medical History Microscopic hematuria Hot flashes Vitamin D deficiency Fibromyalgia Osteoarthritis Chronic GERD Depression, major, recurrent Surgical History History of esophagogastroduodenoscopy (EGD) H/O colonoscopy History of hysterectomy History of surgery Family History Father No problems noted. Mother Asthma Dementia Alzheimer's disease Paternal Aunt Lung cancer Breast cancer Brother No problems noted. Brother No problems noted. Brother No problems noted. Sister No problems noted. Sister No problems noted. Sister No problems noted. Paternal Aunt Breast cancer, Onset Age: 70 Other Mental health disorder Social History Household Members: Significant Other and Children Household Members Other:: 2 children Housing: House Are you a primary urgent care to a significant other at home: No Do you presently have visiting nurse or other home services: No Alcohol intake: never Patient Tobacco Use Status: Never used Tobacco e-Cigarette/Vaping Use: Never Used service: No Current occupational status: unemployed and disabled Cognitive needs: No Hearing needs: No Vision needs: Yes Female Reproductive History Menstrual Age of Menarche: 15 Review of Systems Const All systems reviewed & are unremarkable except as noted in HPI and below Denies nipple discharge Skin/Breast Reports breast pain, Reports breast mass, Denies changing lesions, Denies nipple discharge and Denies erythema Tom/Lymph Denies lymphadenopathy Physical Exam Const General: cooperative and no acute distress Nutritional Appearance: well nourished Orientation/consciousness: patient oriented x3 Limitations: no limitations HEENT Head: Yes normocephalic and Yes atraumatic Ears: hearing grossly normal bilaterally Chest Other: Exam deferred Resp Effort & Inspection: normal respiratory effort, no audible wheezes, no cough and no respiratory distress Cardio Jugular venous distension: no JVD GI Inspection: Yes normal to inspection Skin Other: Warm, dry, no rash Neuro General: patient oriented x3 Extrem General: Yes no clubbing, cyanosis or edema Assessment & Plan Assessment & Plan (1) Abnormal mammogram of left breast: Code(s): R92.8 - Other abnormal and inconclusive findings on diagnostic imaging of breast Plan 58-year-old female patient returning for follow-up breast examination. She was noted to have a low suspicion area of calcification in the left breast which has not changed significantly in the past 1.5 years. Follow-up bilateral mammogram is recommended in 6 months and is scheduled for 04/17/2024. Examination today revealed bilateral breast tenderness with fibrocystic change but no discrete mass in either breast and no enlarged lymph nodes. I recommended genetic testing given the strong family history of breast cancer in 2 paternal aunts. We reviewed the procedure and she expressed understanding and is agreeable to proceed with the genetic testing. She will return in 6 weeks to review the genetic testing results and should also return in 6 months following her next mammogram for routine breast examination. Coding Level of Care Code Est Pt Level 3 (05600) Diagnoses Abnormal mammogram of left breast R92.8
[2023-11-07 15:12] VITALS: BP 133/78; PULSE 85
== END 2023-11-07 15:35 | disposition home or self-care (01) ==
PROVIDERS: PCP Internal Medicine; Visit Provider Surgery
DX: R92.8 Other abnormal and inconclusive findings on diagnostic imaging of breast (principal)
CPT/HCPCS: 99213

== ENCOUNTER → 2023-11-07 15:03 | Outpatient (BNVA) | payer OTHER, SELFPAY | PROVIDERS: PCP Internal Medicine; Visit Provider Surgery | DX: R92.1 Mammographic calcification found on diagnostic imaging of breast (principal); R92.8 Other abnormal and inconclusive findings on diagnostic imaging of breast | CPT/HCPCS: 99212 ==

== ENCOUNTER 2023-11-12 14:23 | Outpatient (AMB) | payer OTHER, SELFPAY ==
--- NOTE | 2023-11-12 14:36 | MHC.OFFVIS ---
Intake Vital Signs 11/12/23 14:40 Height 5 ft 4 in Weight 175 lb BMI 30.0 BP 127/73 Blood Pressure Location Rt brachial Position Sitting Pulse 82 Pulse Source Pulse Oximeter Pulse Oximetry (%) 99 Oxygen Delivery Method Room Air Intake Visit Reasons: MRI follow up Intake Note: Pain today 11/26 Accompanied by: Self / Same As Patient Allergies cat dander [cats] Allergy (Intermediate, Verified 11/12/23 14:40) Itchy Eyes and burning cigarette smoke Allergy (Intermediate, Verified 11/12/23 14:40) migraines latex Allergy (Intermediate, Verified 11/12/23 14:40) Rash trazodone Allergy (Intermediate, Verified 11/12/23 14:40) palpitations Penicillins Adverse Reaction (Intermediate, Verified 11/12/23 14:40) Abdominal Pain tamsulosin Allergy (Severe, Uncoded 11/07/23 15:12) Dizziness HPI HPI Comments History of Present Illness Details Patient presents today to discuss recent lumbar spine MRI results. She continues to endorse significant low back pain with radiation into her left leg with numbness and tingling. Patient reports she has difficulty carrying out her usual daily activities, bending, changing positions, walking, or prolonged standing. She has minimal symptoms when sitting but cannot tolerate prolonged sitting either. Denies any recent cough, cold, infection, fever, bladder or bowel dysfunction, saddle anesthesia, any significant changes in her medical history, medications or recent hospitalizations. PRIOR: Patient is a pleasant 58 years old female with prior history of fibromyalgia, multiple joint pain, anxiety, depression, low back pain, multiple surgeries x6 for urine incontinence and prolapse (PV sling and mesh implant at [facility] [place] and [facility]), presents today for initial evaluation of low back pain with radiation into her left lower extremity. Denies any recent trauma or injury but reports falls x2 recently due to left leg pain and weakness. Back pain is axial and also radiates into her left buttock and left lower extremity with tingling and paresthesias in her toes. She also experiences widespread body pain, left hand tingling and right foot tingling. She was previously seen at [facility] and received back injections with good relief. Pain affects her daily activities, mobility, sleep, social interactions, especially with her grandchildren. Patient reports she is unable to get back up if she bends down or flexes forward due to significant exacerbation of pain. Denies any fever, unintentional weight loss, dizziness, foot drop, bladder or bowel dysfunction, or saddle anesthesia. Reports intermittent left lower extremity weakness. In regards to fibromyalgia which she states was diagnosed after multiple urological surgeries in 2010, she goes to gym every other day doing treadmill, light weights and elliptical and on other days she does swimming. Patient reports if she does not exercise regularly, her widespread pain is worse which is accompanied by swelling sensations and spasms. She also belongs to a Fibromyalgia support group on [employer] and states this has been beneficial. Patient is interested in Cognitive Behavioral Therapy to help her with sleep and chronic pain. Location Lower back radiates to LLE posteriorly Duration Chronic pain, worsening for the past 6 months Characteristics of symptom or complaint Stabbing, sharp, shooting, aching, tingling, throbbing, radiating, tiring Aggravating or associated factors Standing, sitting for extended time, bending, cold weather changes Relieving factors Laying on side, gabapentin, NSAIDs, Tylenol, magnesium, turmeric Treatment Back injections, PT >3 years ago, gym, aqua therapy, acupuncture [facility] Medical History (Updated 11/12/23 @ 15:11 by EVELINE Jean-Baptiste) Muscle spasm Microscopic hematuria Hot flashes Vitamin D deficiency Fibromyalgia Osteoarthritis Chronic GERD Depression, major, recurrent Surgical History History of esophagogastroduodenoscopy (EGD) H/O colonoscopy History of hysterectomy History of surgery Family History Father No problems noted. Mother Asthma Dementia Alzheimer's disease Paternal Aunt Lung cancer Breast cancer, Onset Age: 62 Brother No problems noted. Brother No problems noted. Brother No problems noted. Sister No problems noted. Sister No problems noted. Sister No problems noted. Paternal Aunt Breast cancer, Onset Age: 70 Other Mental health disorder Social History Household Members: Significant Other and Children Household Members Other:: 2 children Housing: House Are you a primary healthcare facility administrator to a significant other at home: No Do you presently have visiting nurse or other home services: No Alcohol intake: never Patient Tobacco Use Status: Never used Tobacco e-Cigarette/Vaping Use: Never Used service: No Current occupational status: unemployed and disabled Cognitive needs: No Hearing needs: No Vision needs: Yes Female Reproductive History Menstrual Age of Menarche: 15 Review of Systems Const All systems reviewed & are unremarkable except as noted in HPI and below Physical Exam Vital Signs: Last Vital Signs Pulse 82 11/12/23 14:40 BP 127/73 11/12/23 14:40 Pulse Ox 99 11/12/23 14:40 Oxygen Delivery Method Room Air 11/12/23 14:40 BMI result Body Mass Index 30.0 General: Appears afebrile. Alert and oriented. Mood and affect appropriate. Follows and participates in conversation appropriately. Respiratory effort is unlabored. No cough. Able to transition from sit to stand unassisted. Ambulates with bilaterally normal heel strike and toe off, feels unsteady on the left. Back/Spine/Pelvis Other: Limited lumbar spine ROM due to pain. Demonstrates 5/5 strength of quadriceps bilaterally as well as flexion/dorsiflexion of bilateral feet against resistance. 2+ pedal pulses bilaterally. Straight leg rise with dorsiflexion positive on the left. +1 patellar and achilles reflexes bilaterally. Facet loading test positive bilaterally. Guillermo?s, Gaenslen, Pelvic compression and Stinchfield tests are positive bilaterally, left>right. No groin pain with I/E hip rotations. Multiple TTP 16/16 tender point upper and lower extremities. Cervical Spine: cervical ROM normal, cervical muscular tenderness, pain with cervical ROM, No Cervical spine tenderness and No step off deformity Thoracic/Lumbar Spine: thoracic and lumbar spine normal to inspection, No Thoracic/lumbar spine scar(s), Lasegue's sign positive on the left and diffuse, pain with thoraco-lumbar ROM, paraspinal muscle tenderness, thoraco-lumbar ROM limited, No thoracic spinal tenderness and lumbar spinal tenderness (L4-S1) Pelvis: buttock tenderness on the left Sacroiliac joints: bilaterally tender to palpation Results Reviewed Results Reviewed: MR SPINE LUMBAR without CONTRAST 11/04/23 at [facility] INDICATION: Radiculopathy, lumbar region. Spondylosis without myelopathy or radiculopathy of lumbar region.. TECHNIQUE: Unenhanced multiplanar, multisequence MR imaging of the lumbar spine. COMPARISON: MR lumb: 03/18/23, 09/04/19; XR lumbar: 02/28/23. FINDINGS: Normal lumbar alignment is demonstrated. Vertebral heights are well maintained. There is hemangioma within the L2 vertebral body. Bone marrow signal is within normal limits, and no suspicious osseous lesion is identified. Conus medullaris is unremarkable. Disc desiccation is demonstrated in the lower lumbar spine greater at L5-S1. Paraspinal soft tissues and visualized portions of the abdomen and pelvis are unremarkable. Left renal cysts are demonstrated. At L1-2 there is no significant disc herniation or protrusion. No central canal or neural foraminal stenosis is demonstrated. At L2-3 there is no significant disc herniation or protrusion. No central canal or neural foraminal stenosis is demonstrated. At L3-4 there is no significant disc herniation or protrusion. No central canal or neural foraminal stenosis is demonstrated. At L4-5 there is mild annular disc bulge and mild facet arthrosis. Synovial cyst on the left appears stable. There is mild narrowing of the left lateral recess which appears similar to prior study. There is mild bilateral neural foraminal stenosis. The appearance is stable compared with the prior study. At L5-S1 there is there is broad-based disc bulge and mild facet arthrosis. Prominent epidural fat is redemonstrated. Central canal remains patent with mild bilateral neural foraminal stenosis slightly greater on the left. IMPRESSION: Grossly stable appearance degenerative changes probably at L4-5 and L5-S1. Narrowing of the left lateral recess L4-5 appears stable compared prior study with contact of the descending left L5 nerve root. XR LUMBOSACRAL SPINE WITH OBLIQUES 10/04/23 CLINICAL INFORMATION: Low back pain with bilateral sciatica, left greater than right. COMPARISON: MRI lumbar spine 03/18/2023, x-ray lumbar spine 02/28/2023 and 06/15/2019. TECHNIQUE: Seven views of the lumbar spine inclusive of flexion and extension views. FINDINGS: Mild leftward curvature of the lumbar spine. Moderate degenerative changes in the bilateral sacroiliac joints. Facet arthritis in the mid to lower lumbar spine. Minimal grade 1 anterolisthesis of L4 on L5 with extension and flexion. Mild multilevel lumbar spondylosis with loss of disc space height, most notable at L4-L5 and L5-S1. IMPRESSION: Mild multilevel lumbar spondylosis, most notable at L4-L5 and L5-S1. Assessment & Plan Assessment & Plan (1) Lumbar radiculopathy: Code(s): M54.16 - Radiculopathy, lumbar region (2) Lumbar spondylosis: Code(s): M47.816 - Spondylosis without myelopathy or radiculopathy, lumbar region (3) Lumbar degenerative disc disease: Code(s): M51.36 - Other intervertebral disc degeneration, lumbar region (4) Muscle spasm: Code(s): M62.838 - Other muscle spasm (5) Bulging of lumbar intervertebral disc: Code(s): M51.36 - Other intervertebral disc degeneration, lumbar region (6) Fibromyalgia: Code(s): M79.7 - Fibromyalgia (7) Sacroiliitis: Code(s): M46.1 - Sacroiliitis, not elsewhere classified Plan Lumbar spine MRI results discussed with patient today. We reviewed interventional treatments for her axial low back pain, SIJ and left sided radiculopathy, including diagnostic injections for potential Sprint PNS vs RFA procedures. Patient reports minimal response to previous back injections in the past. Patient is interested to undergo Neurosurgical evaluation to address her bulging disc with prominent epidural fat at L5-S1. Continue NSAIDs, gabapentin, Tylenol, heat therapy, daily physical activity and aqua therapy as tolerated, good posture, adequate hydration, and weight optimization. Script provided for tizanidine and Celebrex. Side effects and precautions reviewed with patient. All questions and concerns have been answered and patient agreed with the plan. Follow up after neurosurgical evaluation and sooner as needed. Orders: Referrals Neurosurgery Referral M51.36 - Other intervertebral disc degeneration, lumbar region, M54.16 - Radiculopathy, lumbar region Medications: New tizanidine 2 mg PO BID PRN 60 tabs 0RF muscle spasticity G89.4 - Chronic pain syndrome, M62.838 - Other muscle spasm celecoxib (Celebrex) Take it with food and full glass of water 200 mg PO BID PRN 60 caps 0RF pain M47.816 - Spondylosis without myelopathy or radiculopathy, lumbar region, M51.36 - Other intervertebral disc degeneration, lumbar region, M54.16 - Radiculopathy, lumbar region Coding Level of Care Code Est Pt Level 4 (54246) Diagnoses Lumbar radiculopathy M54.16 Lumbar spondylosis M47.816 Lumbar degenerative disc disease M51.36 Muscle spasm M62.838 Bulging of lumbar intervertebral disc M51.36 Fibromyalgia M79.7 Sacroiliitis M46.1
[2023-11-12 14:40] VITALS: BP 127/73; PULSE 82; O2SAT 99
== END 2023-11-12 15:09 | disposition home or self-care (01) ==
PROVIDERS: PCP Internal Medicine; Visit Provider Nurse Practitioner Family
DX: M54.16 Radiculopathy, lumbar region (principal); M47.816 Spondylosis without myelopathy or radiculopathy, lumbar region; M51.36 Other intervertebral disc degeneration, lumbar region; M62.838 Other muscle spasm; M79.7 Fibromyalgia; M46.1 Sacroiliitis, not elsewhere classified
CPT/HCPCS: 99214

== ENCOUNTER → 2023-11-12 14:23 | Outpatient (BNVA) | payer OTHER, SELFPAY | PROVIDERS: PCP Internal Medicine; Visit Provider Nurse Practitioner Family | DX: M54.16 Radiculopathy, lumbar region (principal); M47.816 Spondylosis without myelopathy or radiculopathy, lumbar region; M51.36 Other intervertebral disc degeneration, lumbar region; M62.838 Other muscle spasm; M79.7 Fibromyalgia; M46.1 Sacroiliitis, not elsewhere classified | CPT/HCPCS: 99212 ==

== ENCOUNTER 2023-11-22 10:37 | Outpatient (AMB) | payer OTHER, SELFPAY ==
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
== END 2023-11-22 12:02 | disposition home or self-care (01) ==
PROVIDERS: PCP Internal Medicine; Referring Provider Nurse Practitioner Family; Visit Provider Physician Assistant
DX: M51.36 Other intervertebral disc degeneration, lumbar region (principal)
CPT/HCPCS: 99204

== ENCOUNTER → 2023-11-22 10:37 | Outpatient (BNVA) | payer OTHER, SELFPAY | PROVIDERS: PCP Internal Medicine; Visit Provider Physician Assistant | DX: M51.36 Other intervertebral disc degeneration, lumbar region (principal) | CPT/HCPCS: 99202 ==

== ENCOUNTER 2023-11-26 14:09 | Outpatient (AMB) | payer OTHER, SELFPAY ==
--- NOTE | 2023-11-26 14:18 | MHC.PC.OV ---
Vital Signs 11/26/23 14:19 Height 5 ft 4 in Weight 176 lb 6 oz BMI 30.3 BP 118/82 Blood Pressure Location Lt brachial Position Sitting Pulse 99 Pulse Source Pulse Oximeter Pulse Oximetry (%) 96 Oxygen Delivery Method Room Air Intake Visit Reasons: ER Followup palpitations Allergies cat dander [cats] Allergy (Intermediate, Verified 11/26/23 14:18) Itchy Eyes and burning cigarette smoke Allergy (Intermediate, Verified 11/26/23 14:18) migraines latex Allergy (Intermediate, Verified 11/26/23 14:18) Rash trazodone Allergy (Intermediate, Verified 11/26/23 14:18) palpitations Penicillins Adverse Reaction (Intermediate, Verified 11/26/23 14:18) Abdominal Pain tamsulosin Allergy (Severe, Uncoded 11/07/23 15:12) Dizziness Medication List - Last Reconciled 11/26/23 by Gaudencio Ballard MD [Adult Sanitary Wipes As directed] albuterol sulfate 2.5 mg (3 mL) inhalation QID PRN celecoxib (Celebrex) 200 mg PO BID PRN cholecalciferol (vitamin D3) 25 mcg PO DAILY 90 days clobetasol 0.05% 1 appl topical DAILY 30 days gabapentin 300 mg PO BEDTIME 90 days magnesium 250 mg PO BID naproxen 500 mg PO BID PRN 30 days nebulizers with supplies and all needed equipment, to use for updraft treatments omega [id number]-fish oil 60-90-500 mg (Fish Oil) 1 cap PO DAILY [Poise incontinence pads Requires poise due to allergies. NS] pyridoxine (vitamin B6) 100 mg PO DAILY tizanidine 2 mg PO BID PRN turmeric mg PO [Updraft machine tubing As directed] venlafaxine ER 150 mg PO BEDTIME 90 days Tobacco use date assessed: 11/26/23 Dental Screening Dental Screen Date: 11/26/23 Did you have a dental visit in the last 12 months?: Yes Did you have a dental problem in the last 6 months where you did not have access to dental care?: No Was dental information given to patient?: Patient has dentist HPI ER Followup palpitations HPI Details Patient is a 58-year-old female came in today for hospital discharge follow-up dated 11/15/2023 Patient have a history of asthma, fibromyalgia, GERD. She presented with a chief complaint of palpitations Workup revealed normal EKG Labs revealed no leukocytosis or anemia No acute electrolyte derangements intact renal functions, and stable troponin Chest x-ray showed normal inspiratory effort no evidence of pulmonary edema After evaluation patient was discharged with referral to trimmer buffing wheel Patient has appointment tomorrow with [facility] She is concerned about her weight gain, patient says that she is convinced something is going on that is why she has not able to lose weight We talked about the calories intake and calories Burn out balance She says that she feels bloated and her knees hurt She does admit to feeling anxious off and on as well Patient says that her amitriptyline was stopped in emergency room, she also continued to have headaches off and on I am starting her on lorazepam 0.5 mg 1 tablet daily to be taken as needed Patient was instructed not to drive or work with machinery while on this medication I have placed order for labs we will check cholesterol and thyroid as well She is to return with physical exam appointment [facility] Medical History Muscle spasm Microscopic hematuria Hot flashes Vitamin D deficiency Fibromyalgia Osteoarthritis Chronic GERD Depression, major, recurrent Surgical History History of esophagogastroduodenoscopy (EGD) H/O colonoscopy History of hysterectomy History of surgery Family History Father No problems noted. Mother Asthma Dementia Alzheimer's disease Paternal Aunt Lung cancer Breast cancer, Onset Age: 62 Brother No problems noted. Brother No problems noted. Brother No problems noted. Sister No problems noted. Sister No problems noted. Sister No problems noted. Paternal Aunt Breast cancer, Onset Age: 70 Other Mental health disorder Social History Household Members: Significant Other and Children Household Members Other:: 2 children Housing: House Are you a primary health care manager to a significant other at home: No Do you presently have visiting nurse or other home services: No Alcohol intake: never Patient Tobacco Use Status: Never used Tobacco e-Cigarette/Vaping Use: Never Used service: No Current occupational status: unemployed and disabled Cognitive needs: No Hearing needs: No Vision needs: Yes Female Reproductive History Menstrual Age of Menarche: 15 Questionnaire PHQ-9 Over the last 2 weeks, how often have you been bothered by any of the following problems? 1. Little interest or pleasure in doing things: several days 2. Feeling down, depressed, or hopeless: not at all 3. Trouble falling or staying asleep, or sleeping too much: more than half the days 4. Feeling tired or having little energy: not at all 5. Poor appetite or overeating: several days 6. Feeling bad about yourself - or that you are a failure or have let yourself or your family down: not at all 7. Trouble concentrating on things, such as reading the newspaper or watching television: several days 8. Moving or speaking so slowly that other people could have noticed. Or the opposite - being so fidgety or restless that you have been moving around a lot more than usual: not at all 9. Thoughts that you would be better off or of hurting yourself in some way: not at all Total score: 5 Depression Screening Interpretation: Negative Depression Screening Done: Yes 32441 - PHQ-9 Billing: Yes Source: Developed by Drs. Gatito Agustin, Catina Hunter, Adrien Liao and colleagues, with an educational kori from [employer]. Thrive Questionnaire Date Thrive assessed: 11/26/23 I am a: Patient What is your living situation today?: I have a steady place to live Within the past 12 months, did the food you bought not last and you didn't have the money to get more?: Never true Within the past 12 months, did you worry whether your food would run out before you got money to buy more?: Never true Do you have trouble paying for medicines?: No Do you have trouble getting transportation to medical appointments?: No Do you have trouble paying your heating and electricity bill?: No Do you have trouble taking care of your child, family member or friend?: No Do you have trouble with day-to-day activities such as bathing, preparing meals, shopping, managing finances, etc.?: No Are you currently unemployed and looking for a job?: No Are you interested in more education?: No Please select the resources that you would like help with: None Currently or been in a relationship where the following occur: no concerns reported THRIVE Score: 0 AUDIT C Alcohol Use Questionnaire (AUDIT-C) 1. How often do you have a drink containing alcohol?: Never 3. How often do you have six or more drinks on one occasion?: Never Total Score: 0 Score Reviewed/Action Taken: Yes OLI-7 AMB Questionnaire OLI-7 Date OLI - 7 assessed: 11/26/23 Feeling nervous, anxious, or on edge: 1 = Several days Not being able to stop or control worryin = Several days Worrying too much about different things: 1 = Several days Trouble relaxin = Several days Being so restless that it is hard to sit still: 1 = Several days Becoming easily annoyed or irritable: 1 = Several days Feeling afraid as if something awful might happen: 0 = Not at all Total OLI-7 score (0-4 normal; 5-9 mild; 10-14 moderate; 15-21 severe): 6 Source: Developed by Drs. Gatito Agustin, Catina Hunter, Adrien Liao and colleagues, with an educational kori from [employer]. Review of Systems Const Denies chills and Denies fever(s) ENT Denies epistaxis and Denies nasal discharge Card Denies chest pain Resp Denies chest congestion, Denies cough and Denies hemoptysis GI Denies diarrhea and Denies nausea Skin/Breast Denies rash Neuro Reports no additional complaints Psych Reports no additional complaints Endo Reports no additional complaints Physical exam (Primary Care) Vital Signs: Last Vital Signs Pulse 99 11/26/23 14:19 BP 118/82 11/26/23 14:19 Pulse Ox 96 11/26/23 14:19 Oxygen Delivery Method Room Air 11/26/23 14:19 BMI result Body Mass Index 30.3 Tobacco/Smoking Status: Tobacco use Status Tobacco use date assessed 11/26/23 11/26/23 14:19 Patient Tobacco Use Status Never used Tobacco 11/26/23 14:19 e-Cigarette/Vaping Use Never Used 11/26/23 14:19 PHQ-9: PHQ-9 Score PHQ-9: Total score 5 11/26/23 15:31 Depression Screening Interpretation: Negative Thrive Assessment: Date of Thrive Assessment Date Thrive assessed 11/26/23 11/26/23 14:20 Currently or been in a relationship where the following occur: no concerns reported Const General: cooperative, comfortable and no acute distress Orientation/consciousness: patient oriented x3 HENMT Head: Yes normocephalic Eyes General: appearance normal, both eyes and all related structures Neck Neck: Yes supple Resp Effort & Inspection: normal respiratory effort, no cough and no stridor Cardio Rhythm: regular rhythm Heart sounds: S1 normal heart sound present and S2 normal heart sound present Skin General skin exam: turgor normal Neuro General: patient oriented x3, tone normal and moves all extremities Extrem Right lower extremity: no edema Left lower extremity: no edema Assessment and Plan Assessment & Plan (1) Hospital discharge follow-up: Code(s): Z09 - Encounter for follow-up examination after completed treatment for conditions other than malignant neoplasm (2) Heart palpitations: Code(s): R00.2 - Palpitations (3) Lipid disorder: Code(s): E78.9 - Disorder of lipoprotein metabolism, unspecified (4) Hot flashes: Code(s): R23.2 - Flushing (5) Fibromyalgia: Code(s): M79.7 - Fibromyalgia (6) Osteoarthritis: Code(s): M19.90 - Unspecified osteoarthritis, unspecified site Qualifiers: Osteoarthritis location: unspecified site Osteoarthritis type: primary Qualified Code(s): M19.91 - Primary osteoarthritis, unspecified site (7) Chronic GERD: Code(s): K21.9 - Gastro-esophageal reflux disease without esophagitis (8) Depression, major, recurrent: Code(s): F33.9 - Major depressive disorder, recurrent, unspecified Qualifiers: Active/Remission status: in partial remission Qualified Code(s): F33.41 - Major depressive disorder, recurrent, in partial remission (9) Anxiety, generalized: Code(s): F41.1 - Generalized anxiety disorder (10) Bloating: Code(s): R14.0 - Abdominal distension (gaseous) Plan Patient is a 58-year-old female came in today for hospital discharge follow-up dated 11/15/2023 Patient have a history of asthma, fibromyalgia, GERD. She presented with a chief complaint of palpitations Workup revealed normal EKG Labs revealed no leukocytosis or anemia No acute electrolyte derangements intact renal functions, and stable troponin Chest x-ray showed normal inspiratory effort no evidence of pulmonary edema After evaluation patient was discharged with referral to trimmer buffing wheel Patient has appointment tomorrow with [facility] She is concerned about her weight gain, patient says that she is convinced something is going on that is why she has not able to lose weight We talked about the calories intake and calories Burn out balance She says that she feels bloated and her knees hurt She does admit to feeling anxious off and on as well Patient says that her amitriptyline was stopped in emergency room, she also continued to have headaches off and on I am starting her on lorazepam 0.5 mg 1 tablet daily to be taken as needed Patient was instructed not to drive or work with machinery while on this medication I have placed order for labs we will check cholesterol and thyroid as well She is to return with physical exam appointment Orders: Orders Complete Blood Count Auto Diff Today E78.9 - Disorder of lipoprotein metabolism, unspecified, F33.41 - Major depressive disorder, recurrent, in partial remission, K21.9 - Gastro-esophageal reflux disease without esophagitis, M19.91 - Primary osteoarthritis, unspecified site, M79.7 - Fibromyalgia, R00.2 - Palpitations, R14.0 - Abdominal distension (gaseous), R23.2 - Flushing, Z09 - Encounter for follow-up examination after completed treatment for conditions other than malignant neoplasm Comprehensive [place]. Panel Fast Today E78.9 - Disorder of lipoprotein metabolism, unspecified, F33.41 - Major depressive disorder, recurrent, in partial remission, K21.9 - Gastro-esophageal reflux disease without esophagitis, M19.91 - Primary osteoarthritis, unspecified site, M79.7 - Fibromyalgia, R00.2 - Palpitations, R14.0 - Abdominal distension (gaseous), R23.2 - Flushing, Z09 - Encounter for follow-up examination after completed treatment for conditions other than malignant neoplasm Lipid Panel Today E78.9 - Disorder of lipoprotein metabolism, unspecified, F33.41 - Major depressive disorder, recurrent, in partial remission, K21.9 - Gastro-esophageal reflux disease without esophagitis, M19.91 - Primary osteoarthritis, unspecified site, M79.7 - Fibromyalgia, R00.2 - Palpitations, R14.0 - Abdominal distension (gaseous), R23.2 - Flushing, Z09 - Encounter for follow-up examination after completed treatment for conditions other than malignant neoplasm TSH reflex Free T4 Today E78.9 - Disorder of lipoprotein metabolism, unspecified, F33.41 - Major depressive disorder, recurrent, in partial remission, K21.9 - Gastro-esophageal reflux disease without esophagitis, M19.91 - Primary osteoarthritis, unspecified site, M79.7 - Fibromyalgia, R00.2 - Palpitations, R14.0 - Abdominal distension (gaseous), R23.2 - Flushing, Z09 - Encounter for follow-up examination after completed treatment for conditions other than malignant neoplasm Hemoglobin A1c Today E78.9 - Disorder of lipoprotein metabolism, unspecified, F33.41 - Major depressive disorder, recurrent, in partial remission, K21.9 - Gastro-esophageal reflux disease without esophagitis, M19.91 - Primary osteoarthritis, unspecified site, M79.7 - Fibromyalgia, R00.2 - Palpitations, R14.0 - Abdominal distension (gaseous), R23.2 - Flushing, Z09 - Encounter for follow-up examination after completed treatment for conditions other than malignant neoplasm Lutenizing Hormone Today E78.9 - Disorder of lipoprotein metabolism, unspecified, F33.41 - Major depressive disorder, recurrent, in partial remission, K21.9 - Gastro-esophageal reflux disease without esophagitis, M19.91 - Primary osteoarthritis, unspecified site, M79.7 - Fibromyalgia, R00.2 - Palpitations, R14.0 - Abdominal distension (gaseous), R23.2 - Flushing, Z09 - Encounter for follow-up examination after completed treatment for conditions other than malignant neoplasm Follicle Stimulating Hormone Today E78.9 - Disorder of lipoprotein metabolism, unspecified, F33.41 - Major depressive disorder, recurrent, in partial remission, K21.9 - Gastro-esophageal reflux disease without esophagitis, M19.91 - Primary osteoarthritis, unspecified site, M79.7 - Fibromyalgia, R00.2 - Palpitations, R14.0 - Abdominal distension (gaseous), R23.2 - Flushing, Z09 - Encounter for follow-up examination after completed treatment for conditions other than malignant neoplasm Vitamin D 25-OH (D2 and D3) Today E78.9 - Disorder of lipoprotein metabolism, unspecified, F33.41 - Major depressive disorder, recurrent, in partial remission, K21.9 - Gastro-esophageal reflux disease without esophagitis, M19.91 - Primary osteoarthritis, unspecified site, M79.7 - Fibromyalgia, R00.2 - Palpitations, R14.0 - Abdominal distension (gaseous), R23.2 - Flushing, Z09 - Encounter for follow-up examination after completed treatment for conditions other than malignant neoplasm Vitamin B12 Today E78.9 - Disorder of lipoprotein metabolism, unspecified, F33.41 - Major depressive disorder, recurrent, in partial remission, K21.9 - Gastro-esophageal reflux disease without esophagitis, M19. - Primary osteoarthritis, unspecified site, M79.7 - Fibromyalgia, R00.2 - Palpitations, R14.0 - Abdominal distension (gaseous), R23.2 - Flushing, Z09 - Encounter for follow-up examination after completed treatment for conditions other than malignant neoplasm Medications: New lorazepam 0.5 mg PO DAILY PRN 30 tabs 0RF anxiety Discontinued amitriptyline Discontinued Reason: Doctor's Order 10 mg PO BEDTIME 30 days 30 tabs 2RF for pain M47.816 - Spondylosis without myelopathy or radiculopathy, lumbar region, M54.16 - Radiculopathy, lumbar region, M79.7 - Fibromyalgia Coding Level of Care Code Est Pt Level 4 (05084) Diagnoses Hospital discharge follow-up Z09 Heart palpitations R00.2 Lipid disorder E78.9 Hot flashes R23.2 Fibromyalgia M79.7 Primary osteoarthritis, unspecified site M19. Osteoarthritis location: unspecified site Osteoarthritis type: primary Chronic GERD K21.9 Recurrent major depressive disorder, in partial remission F33.41 Active/Remission status: in partial remission Anxiety, generalized F41.1 Bloating R14.0
[2023-11-26 14:19] VITALS: BP 118/82; PULSE 99; O2SAT 96; BMI 30.3
== END 2023-11-26 15:38 | disposition home or self-care (01) ==
PROVIDERS: PCP Internal Medicine; Visit Provider Internal Medicine
DX: R00.2 Palpitations (principal); F33.41 Major depressive disorder, recurrent, in partial remission; Z09 Encounter for follow-up examination after completed treatment for conditions other than malignant neoplasm; E78.9 Disorder of lipoprotein metabolism, unspecified; R23.2 Flushing; M79.7 Fibromyalgia; M19.91 Primary osteoarthritis, unspecified site; K21.9 Gastro-esophageal reflux disease without esophagitis; F41.1 Generalized anxiety disorder; R14.0 Abdominal distension (gaseous)
CPT/HCPCS: 99214

== ENCOUNTER 2023-11-29 14:55 | Outpatient (AMB) | payer OTHER, SELFPAY ==
--- NOTE | 2023-11-29 15:02 | A.OFFVIS_ITS ---
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: No Accompanied by: Self / Same As Patient Allergies cat dander [cats] Allergy (Intermediate, Verified 11/29/23 15:03) Itchy Eyes and burning cigarette smoke Allergy (Intermediate, Verified 11/29/23 15:03) migraines latex Allergy (Intermediate, Verified 11/29/23 15:03) Rash trazodone Allergy (Intermediate, Verified 11/29/23 15:03) palpitations Penicillins Adverse Reaction (Intermediate, Verified 11/29/23 15:03) Abdominal Pain tamsulosin Allergy (Severe, Uncoded 11/07/23 15:12) Dizziness HPI HPI Comments History of Present Illness Details Patient presents today to discuss interventinal treatments for low back pain after recent Neurosurgical evaluation. Patient states she was deemed non surgical. Neurosurgical evaluation was reviewed and available in EMR. Patient continues to endorse low back pain extending to her sacral areas bilaterally, worse on the left side. Her pain increases significantly with walking, changing positions or exercising. She continues HEP guided by what she previously learned at PT. We will proceed with diagnostic bilateral sacroiliac joint injections as next steps. Patient states NSAIDs, muscle relaxant, heat therapy, gabapentin with continued symptoms. Denies any recent cough, cold, infection, fever, any significant changes in her medical history, medications or recent hospitalizations. PRIOR: Patient presents today to discuss recent lumbar spine MRI results. She continues to endorse significant low back pain with radiation into her left leg with numbness and tingling. Patient reports she has difficulty carrying out her usual daily activities, bending, changing positions, walking, or prolonged standing. She has minimal symptoms when sitting but cannot tolerate prolonged sitting either. Denies any recent cough, cold, infection, fever, bladder or bowel dysfunction, saddle anesthesia, any significant changes in her medical history, medications or recent hospitalizations. PRIOR: Patient is a pleasant 58 years old female with prior history of fibromyalgia, multiple joint pain, anxiety, depression, low back pain, multiple surgeries x6 for urine incontinence and prolapse (PV sling and mesh implant at [facility] and [facility] [place]), presents today for initial evaluation of low back pain with radiation into her left lower extremity. Denies any recent trauma or injury but reports falls x2 recently due to left leg pain and weakness. Back pain is axial and also radiates into her left buttock and left lower extremity with tingling and paresthesias in her toes. She also experiences widespread body pain, left hand tingling and right foot tingling. She was previously seen at [facility] [place] and received back injections with good relief. Pain affects her daily activities, mobility, sleep, social interactions, especially with her grandchildren. Patient reports she is unable to get back up if she bends down or flexes forward due to significant exacerbation of pain. Denies any fever, unintentional weight loss, dizziness, foot drop, bladder or bowel dysfunction, or saddle anesthesia. Reports intermittent left lower extremity weakness. In regards to fibromyalgia which she states was diagnosed after multiple urological surgeries in 2010, she goes to gym every other day doing treadmill, light weights and elliptical and on other days she does swimming. Patient reports if she does not exercise regularly, her widespread pain is worse which is accompanied by swelling sensations and spasms. She also belongs to a Fibromyalgia support group on [employer] and states this has been beneficial. Patient is interested in Cognitive Behavioral Therapy to help her with sleep and chronic pain. Location Lower back radiates to LLE posteriorly Duration Chronic pain, worsening for the past 6 months Characteristics of symptom or complaint Stabbing, sharp, shooting, aching, tingling, throbbing, radiating, tiring Aggravating or associated factors Standing, sitting for extended time, bending, cold weather changes Relieving factors Laying on side, gabapentin, NSAIDs, Tylenol, magnesium, turmeric Treatment Back injections, PT >3 years ago, gym, aqua therapy, acupuncture [facility] Medical History Muscle spasm Microscopic hematuria Hot flashes Vitamin D deficiency Fibromyalgia Osteoarthritis Chronic GERD Depression, major, recurrent Surgical History History of esophagogastroduodenoscopy (EGD) H/O colonoscopy History of hysterectomy History of surgery Family History Father No problems noted. Mother Asthma Dementia Alzheimer's disease Paternal Aunt Lung cancer Breast cancer, Onset Age: 62 Brother No problems noted. Brother No problems noted. Brother No problems noted. Sister No problems noted. Sister No problems noted. Sister No problems noted. Paternal Aunt Breast cancer, Onset Age: 70 Other Mental health disorder Social History Household Members: Significant Other and Children Household Members Other:: 2 children Housing: House Are you a primary home care chaplain to a significant other at home: No Do you presently have visiting nurse or other home services: No Alcohol intake: never Patient Tobacco Use Status: Never used Tobacco e-Cigarette/Vaping Use: Never Used service: No Current occupational status: unemployed and disabled Cognitive needs: No Hearing needs: No Vision needs: Yes Female Reproductive History Menstrual Age of Menarche: 15 Review of Systems Const All systems reviewed & are unremarkable except as noted in HPI and below Physical Exam Vital Signs: Last Vital Signs Pulse 71 11/29/23 15:03 BP 127/74 11/29/23 15:03 Pulse Ox 99 11/29/23 15:03 Oxygen Delivery Method Room Air 11/29/23 15:03 BMI result Body Mass Index 30.2 General: Appears afebrile. Alert and oriented. Mood and affect appropriate. Follows and participates in conversation appropriately. Respiratory effort is unlabored. No cough. Able to transition from sit to stand unassisted. Ambulates with bilaterally normal heel strike and toe off, feels imbalance on the left. Back/Spine/Pelvis Other: Limited lumbar spine ROM due to pain. Demonstrates 5/5 strength of quadriceps bilaterally as well as flexion/dorsiflexion of bilateral feet against resi stance. 2+ pedal pulses bilaterally. Straight leg rise with dorsiflexion is negative bilaterally. Diminished patellar and achilles reflexes bilaterally. Facet loading test positive bilaterally. Guillermo?s, Gaenslen, Pelvic compression and Stinchfield tests are positive bilaterally, left>right. +Bob bilaterally. No groin pain with I/E hip rotations. Multiple TTP 16/16 tender point upper and lower extremities. Cervical Spine: cervical ROM normal, cervical muscular tenderness, pain with cervical ROM, No Cervical spine tenderness and No step off deformity Thoracic/Lumbar Spine: thoracic and lumbar spine normal to inspection, No Thoracic/lumbar spine scar(s), Lasegue's sign negative, pain with thoraco-lumbar ROM, paraspinal muscle tenderness, thoraco-lumbar ROM limited, No thoracic spinal tenderness and lumbar spinal tenderness (L4-S1) Pelvis: buttock tenderness on the left Sacroiliac joints: bilaterally tender to palpation Results Reviewed Results Reviewed: MR SPINE LUMBAR without CONTRAST 11/04/23 at [facility] INDICATION: Radiculopathy, lumbar region. Spondylosis without myelopathy or radiculopathy of lumbar region.. TECHNIQUE: Unenhanced multiplanar, multisequence MR imaging of the lumbar spine. COMPARISON: MR lumb: 03/18/23, 09/04/19; XR lumbar: 02/28/23. FINDINGS: Normal lumbar alignment is demonstrated. Vertebral heights are well maintained. There is hemangioma within the L2 vertebral body. Bone marrow signal is within normal limits, and no suspicious osseous lesion is identified. Conus medullaris is unremarkable. Disc desiccation is demonstrated in the lower lumbar spine greater at L5-S1. Paraspinal soft tissues and visualized portions of the abdomen and pelvis are unremarkable. Left renal cysts are demonstrated. At L1-2 there is no significant disc herniation or protrusion. No central canal or neural foraminal stenosis is demonstrated. At L2-3 there is no significant disc herniation or protrusion. No central canal or neural foraminal stenosis is demonstrated. At L3-4 there is no significant disc herniation or protrusion. No central canal or neural foraminal stenosis is demonstrated. At L4-5 there is mild annular disc bulge and mild facet arthrosis. Synovial cyst on the left appears stable. There is mild narrowing of the left lateral recess which appears similar to prior study. There is mild bilateral neural foraminal stenosis. The appearance is stable compared with the prior study. At L5-S1 there is there is broad-based disc bulge and mild facet arthrosis. Prominent epidural fat is redemonstrated. Central canal remains patent with mild bilateral neural foraminal stenosis slightly greater on the left. IMPRESSION: Grossly stable appearance degenerative changes probably at L4-5 and L5-S1. Narrowing of the left lateral recess L4-5 appears stable compared prior study with contact of the descending left L5 nerve root. XR LUMBOSACRAL SPINE WITH OBLIQUES 10/04/23 CLINICAL INFORMATION: Low back pain with bilateral sciatica, left greater than right. COMPARISON: MRI lumbar spine 03/18/2023, x-ray lumbar spine 02/28/2023 and 06/15/2019. TECHNIQUE: Seven views of the lumbar spine inclusive of flexion and extension views. FINDINGS: Mild leftward curvature of the lumbar spine. Moderate degenerative changes in the bilateral sacroiliac joints. Facet arthritis in the mid to lower lumbar spine. Minimal grade 1 anterolisthesis of L4 on L5 with extension and flexion. Mild multilevel lumbar spondylosis with loss of disc space height, most notable at L4-L5 and L5-S1. IMPRESSION: Mild multilevel lumbar spondylosis, most notable at L4-L5 and L5-S1. Assessment & Plan Assessment & Plan (1) Lumbar spondylosis: Code(s): M47.816 - Spondylosis without myelopathy or radiculopathy, lumbar region (2) Lumbar degenerative disc disease: Code(s): M51.36 - Other intervertebral disc degeneration, lumbar region (3) Muscle spasm: Code(s): M62.838 - Other muscle spasm (4) Fibromyalgia: Code(s): M79.7 - Fibromyalgia (5) Sacroiliitis: Code(s): M46.1 - Sacroiliitis, not elsewhere classified (6) Chronic pain syndrome: Code(s): G89.4 - Chronic pain syndrome (7) Sacroiliac joint pain: Code(s): M53.3 - Sacrococcygeal disorders, not elsewhere classified Plan Patient was deemed non-surgical candidate at her recent Neurosurgical Evaluation. Her symptoms and exam are consistent with low back and SIJ pain symptoms. We reviewed interventional treatments for her axial low back and SIJ pain, including diagnostic injections for potential Sprint PNS, SI joint stabilization, Curonix PNS trial or RFA procedures. Informational pamphlets provided. Script sent to [facility] for SIJ belt for sacroiliac joint pain. Schedule Bilateral Diagnostic Sacroiliac Joint Injections with local and fluoroscopy. Expectations, risks and benefits were reviewed. Patient is aware she will be contacted to schedule this procedure. Continue tizanidine, Celebrex, gabapentin, heat/ice therapy, activity modification, weight optimization and SIJ exercises. All questions and concerns have been answered and patient agreed with the plan. Follow up after injections and sooner as needed. Coding Level of Care Code Est Pt Level 4 (89697) Diagnoses Lumbar spondylosis M47.816 Lumbar degenerative disc disease M51.36 Muscle spasm M62.838 Fibromyalgia M79.7 Sacroiliitis M46.1 Chronic pain syndrome G89.4 Sacroiliac joint pain M53.3
[2023-11-29 15:03] VITALS: BP 127/74; PULSE 71; O2SAT 99; BMI 30.2
== END 2023-11-29 15:24 | disposition home or self-care (01) ==
PROVIDERS: PCP Internal Medicine; Visit Provider Nurse Practitioner Family
DX: M47.816 Spondylosis without myelopathy or radiculopathy, lumbar region (principal); M51.36 Other intervertebral disc degeneration, lumbar region; M62.838 Other muscle spasm; M79.7 Fibromyalgia; M46.1 Sacroiliitis, not elsewhere classified; G89.4 Chronic pain syndrome; M53.3 Sacrococcygeal disorders, not elsewhere classified
CPT/HCPCS: 99214

== ENCOUNTER → 2023-11-29 14:55 | Outpatient (BNVA) | payer OTHER, SELFPAY | PROVIDERS: PCP Internal Medicine; Visit Provider Nurse Practitioner Family | DX: M47.816 Spondylosis without myelopathy or radiculopathy, lumbar region (principal); M51.36 Other intervertebral disc degeneration, lumbar region; M62.838 Other muscle spasm; M79.7 Fibromyalgia; M46.1 Sacroiliitis, not elsewhere classified; M53.3 Sacrococcygeal disorders, not elsewhere classified; G89.4 Chronic pain syndrome | CPT/HCPCS: 99212 ==

== ENCOUNTER 2023-12-09 10:16 | Outpatient (AMB) | payer OTHER, SELFPAY ==
[2023-12-09 10:30] VITALS: BP 117/77; PULSE 69; BMI 29.9
--- NOTE | 2023-12-09 10:30 | A.OFFVIS_ITS ---
Vital Signs 12/09/23 10:30 Height 5 ft 4 in Weight 174 lb 2.643 oz BMI 29.9 BP 117/77 Blood Pressure Location Lt brachial Position Sitting Pulse 69 Intake Visit Reasons: r/s from 10/11 Intake Note: Janna presents in the office as a follow up. CC: She states that the only concern she is having is she noticed she is still having bloating in her stomach. Sometimes when she wants to burp she has to force it out. Some foods she will still have nausea. She knows she has to eat slow because she will feel like she has to wait because the food is taking too long to digest. Hematology Technologist Required: No Allergies cat dander [cats] Allergy (Intermediate, Verified 12/09/23 10:34) Itchy Eyes and burning cigarette smoke Allergy (Intermediate, Verified 12/09/23 10:34) migraines latex Allergy (Intermediate, Verified 12/09/23 10:34) Rash trazodone Allergy (Intermediate, Verified 12/09/23 10:34) palpitations Penicillins Adverse Reaction (Intermediate, Verified 12/09/23 10:34) Abdominal Pain tamsulosin Allergy (Severe, Uncoded 12/09/23 10:34) Dizziness HPI HPI r/s from 10/11: Details: 58 yr old f called for f/u Initially seen [facility] needed screening colonoscopy abdominal bloating GERD she had 6 surgeries due to bladder mesh and cystocele issues TTG was negative US 12/2021 hepatic steatosis left renal stones, calcifications , renal cyst neg H pylori test EGD/colonsocopy: 07/2022 Endoscopy Findings: sliding hiatal hernia esophagitis schatzki ring Colonoscopy Findings: internal hemorrhoids Path: A.? Stomach, biopsy:? Antral-type and oxyntic mucosa with moderate chronic active/erosive inflammation; no Helicobacter organisms seen. B.? EG junction, biopsy: - Cardiofundic-type mucosa with moderate chronic active inflammation and multilayered epithelium; no fully developed intestinal metaplasia seen. - Chronic active esophagitis (eosinophils and few neutrophils). C.? Esophagus, distal, biopsy:? Squamous epithelium within normal limits; no inflammation seen. CT- 08/09 kidney stones INTERIM: she has issues with bloating weight is going up she has few small meals and fruits in between she feels body is reacting to something not sure what it is she has burping and nausea sometimes she is taking carafate and prilosec 20 mg daily sometimes constipation EXAM: GENERAL: The patient is well developed and nontoxic. VITAL SIGNS:see workflow HEENT: Nonicteric sclerae, PERRLA, EOMI. Oropharynx clear. Moist mucous membranes. Conjunctivae appear well perfused. No thyroid mass. CHEST: Chest wall is nontender. HEART: Regular rate and rhythm without murmurs. LUNGS: Clear to auscultation bilaterally. ABDOMEN: Soft, positive bowel sounds, nontender, no organomegaly.no flank tenderness SKIN: No rash, no excessive bruising, petechiae, or purpura. NEUROLOGIC: Cranial nerves II-XII intact without motor/sensory deficit. Psych: normal affect A/P: 1/ Blaoting as above, might be related to 2/ below, ddx: SIBO, gluten intolerance, IBS 2/ Lactulose intolerance PLAN:? 1/ She is keen for confirmation fo lactose intolerance, wants to do breath test, will check with R/N abt insurance 2/ advised to change timing of carafate and PPI, might not be absorbing PPI and therefore not gettign ebenefit 3/ discussed trial of ABX she wants to hold 4/ given FODMAP diet leaflet [facility] Medical History Muscle spasm Microscopic hematuria Hot flashes Vitamin D deficiency Fibromyalgia Osteoarthritis Chronic GERD Depression, major, recurrent Surgical History History of esophagogastroduodenoscopy (EGD) H/O colonoscopy History of hysterectomy History of surgery Family History Father No problems noted. Mother Asthma Dementia Alzheimer's disease Paternal Aunt Lung cancer Breast cancer, Onset Age: 62 Brother No problems noted. Brother No problems noted. Brother No problems noted. Sister No problems noted. Sister No problems noted. Sister No problems noted. Paternal Aunt Breast cancer, Onset Age: 70 Other Mental health disorder Social History Household Members: Significant Other and Children Household Members Other:: 2 children Housing: House Are you a primary director of critical care to a significant other at home: No Do you presently have visiting nurse or other home services: No Alcohol intake: never Patient Tobacco Use Status: Never used Tobacco e-Cigarette/Vaping Use: Never Used service: No Current occupational status: unemployed and disabled Cognitive needs: No Hearing needs: No Vision needs: Yes Female Reproductive History Menstrual Age of Menarche: 15 Assessment & Plan Assessment & Plan (1) Bloating: Code(s): R14.0 - Abdominal distension (gaseous) Category: Medical Plan: see above
== END 2023-12-09 10:55 | disposition home or self-care (01) ==
LOC: HO.HGI 10:16
PROVIDERS: PCP Internal Medicine; Visit Provider Internal Medicine Gastroenterology
DX: R14.0 Abdominal distension (gaseous) (principal)
CPT/HCPCS: 99213

== ENCOUNTER 2023-12-09 11:13 | Outpatient (REF) | payer OTHER, SELFPAY ==
[2023-12-09 13:34] LABS: MANUAL DIFF FLAG NO
[2023-12-09 13:55] LABS: Basophils Absolute Auto 0.1 X10*3/uL (0.0-0.2); Basophils Percent Auto 1.3 % (0-2); Eosinophils Absolute Auto 0.2 X10*3/uL (0.0-0.4); Eosinophils Percent Auto 2.8 % (0-4); Hematocrit 43.6 % (37.0-47.0); Hemoglobin 14.4 g/dl (12.0-16.0); Imm Gran Abs Auto 0.01 X10*3/uL (0.00-0.03); Imm Gran Pct Auto 0.1 % (0.0-0.4); Lymphocytes Absolute Auto 2.5 X10*3/uL (1.2-4.9); Lymphocytes Percent Auto 36.8 % (20-40); Mean Corpuscular Hemoglobin 30.6 pg (27.0-33.0); Mean Corpuscular Volume 92.8 fL (80.0-98.0); Mean Platelet Volume 10.9 fL (9.4-12.3); Monocytes Absolute Auto 0.6 X10*3/uL (0.1-1.2); Monocytes Percent Auto 8.9 % (2-11); Neutrophils Absolute Auto 3.4 x10*3/uL (2.0-8.3); Neutrophils Percent Auto 50.1 % (45-73); Platelet Count 383 X10*3/uL (160-400); Red Cell Distribution Width 12.6 % (11.0-16.0); White Blood Count 6.7 X10*3/uL (4.8-10.8)
[2023-12-09 14:05] LABS: Estimated Average Glucose 114 mg/dL; Hemoglobin A1c % 5.6 % (<6.0)
[2023-12-09 14:21] LABS: Vitamin B12 681 pg/mL (200-900)
[2023-12-09 14:25] LABS: Alanine Aminotransferase 22 U/L (0-31); Albumin Level 4.1 g/dL (3.5-5.0); Alkaline Phosphatase 107 U/L (39-117); Anion Gap 11 (12-20); Aspartate Amino Transferase 21 U/L (5-31); Bilirubin Total 0.2 mg/dL (0.0-1.0); Blood Urea Nitrogen 15 mg/dL (9-16); Calcium 9.5 mg/dL (8.4-10.2); Carbon Dioxide 26 mmol/L (22-29); Chloride 108 mmol/L (96-108); Cholesterol 245 mg/dL (<200); Estimated Glomerular Filt Rate > 60; Glucose Fasting 87 mg/dL (60-99); HDL Cholesterol 78 mg/dL (>40); LDL Cholesterol Calculated 144 mg/dL (<100); Potassium 4.1 mmol/L (3.3-5.1); Sodium 141 mmol/L (135-145); Total Protein 7.5 g/dL (6.5-8.0); Triglycerides 119 mg/dL (<150)
[2023-12-09 14:28] LABS: TSH reflex Free T4 2.48 uIU/mL (0.32-4.0)
[2023-12-10 09:53] LABS: Follicle Stimulating Hormone 59.5 mIU/mL; Lutenizing Hormone 27.6 mIU/mL
[2023-12-13 15:54] LABS: Vitamin D 25-OH, D2 <4 ng/mL; Vitamin D 25-OH, D3 38 ng/mL; Vitamin D 25-OH, Total 38 ng/mL (30-100)
== END 2023-12-09 11:14 | disposition home or self-care (01) ==
LOC: HO.HMGCLDS 11:13
PROVIDERS: PCP Internal Medicine; Visit Provider Internal Medicine
DX: F33.41 Major depressive disorder, recurrent, in partial remission (principal); K21.9 Gastro-esophageal reflux disease without esophagitis; M19.91 Primary osteoarthritis, unspecified site; M79.7 Fibromyalgia; R23.2 Flushing; E78.9 Disorder of lipoprotein metabolism, unspecified; R00.2 Palpitations; R14.0 Abdominal distension (gaseous)
CPT/HCPCS: 36415; 80053; 80061; 82306; 82607; 83001; 83002; 83036; 84443; 85025; 99212

== ENCOUNTER 2023-12-19 15:09 | Outpatient (AMB) | payer OTHER, SELFPAY ==
--- NOTE | 2023-12-19 15:12 | A.OFFVIS_ITS ---
Vital Signs 12/19/23 15:18 Height 5 ft 4 in Weight 176 lb BMI 30.2 BP 146/84 H Blood Pressure Location Lt brachial Position Sitting Pulse 77 Intake Visit Reasons: Genetic Results Intake Note: Patient is seen in office for genetic testing results. Pt c/o: here for results V Groove Cutter Required: No Accompanied by: Self / Same As Patient Allergies cat dander [cats] Allergy (Intermediate, Verified 12/19/23 15:18) Itchy Eyes and burning cigarette smoke Allergy (Intermediate, Verified 12/19/23 15:18) migraines latex Allergy (Intermediate, Verified 12/19/23 15:18) Rash trazodone Allergy (Intermediate, Verified 12/19/23 15:18) palpitations Penicillins Adverse Reaction (Intermediate, Verified 12/19/23 15:18) Abdominal Pain tamsulosin Allergy (Severe, Uncoded 12/19/23 15:18) Dizziness Medication List - Last Reconciled 12/19/23 by Tr Lopez MD [Adult Sanitary Wipes As directed] albuterol sulfate 2.5 mg (3 mL) inhalation QID PRN amitriptyline 10 mg PO BEDTIME celecoxib (Celebrex) 200 mg PO BID PRN cholecalciferol (vitamin D3) 25 mcg PO DAILY 90 days clobetasol 0.05% 1 appl topical DAILY 30 days gabapentin 300 mg PO BEDTIME 90 days ketotifen fumarate 0.025%(0.035%) drps ophthalmic (eye) lorazepam 0.5 mg PO DAILY PRN loteprednol etabonate 0.5% drps ophthalmic (eye) magnesium 250 mg PO BID naproxen 500 mg PO BID PRN 30 days nebulizers with supplies and all needed equipment, to use for updraft treatments omega 5-ltc-srb-fish oil 60-90-500 mg (Fish Oil) 1 cap PO DAILY [Poise incontinence pads Requires poise due to allergies. NS] pyridoxine (vitamin B6) 100 mg PO DAILY tizanidine 2 mg PO BID PRN turmeric mg PO [Updraft machine tubing As directed] venlafaxine ER 150 mg PO BEDTIME 90 days HPI Comments Details: 58-year-old female patient returning for review of genetic testing results performed on 11/07/2023. Mammogram of 04/12/2023 revealed loosely grouped predominantly punctate calcifications in the upper outer quadrant of the left breast middle 3rd. This has been followed for the past 1.5 years without significant change. Her most recent mammogram performed on 10/15/2023 revealed no significant change in the left breast calcifications. This was felt to be low suspicion for malignancy (BI-RADS 3) and follow-up bilateral diagnostic mammogram recommended in 6 months to conclude the 2 year follow-up to document stability. Previous examination revealed fibrocystic change with no suspicious densities. She is with 1 miscarriage. Her family history is significant for 2 paternal aunts with breast cancer 1 who recently . Genetic testing performed on 11/07/2023 revealed no clinically significant mutations identified and no variance of uncertain significance identified. Her breast cancer risk score was calculated at 12.7 %, well below the 20% high risk threshold. A copy of the report was provided to the patient today. [facility] Medical History Muscle spasm Microscopic hematuria Hot flashes Vitamin D deficiency Fibromyalgia Osteoarthritis Chronic GERD Depression, major, recurrent Surgical History History of esophagogastroduodenoscopy (EGD) H/O colonoscopy History of hysterectomy History of surgery Family History Father No problems noted. Mother Asthma Dementia Alzheimer's disease Paternal Aunt Lung cancer Breast cancer, Onset Age: 62 Brother No problems noted. Brother No problems noted. Brother No problems noted. Sister No problems noted. Sister No problems noted. Sister No problems noted. Paternal Aunt Breast cancer, Onset Age: 70 Other Mental health disorder Social History Household Members: Significant Other and Children Household Members Other:: 2 children Housing: House Are you a primary assurance services manager health care to a significant other at home: No Do you presently have visiting nurse or other home services: No Alcohol intake: never Patient Tobacco Use Status: Never used Tobacco e-Cigarette/Vaping Use: Never Used service: No Current occupational status: unemployed and disabled Cognitive needs: No Hearing needs: No Vision needs: Yes Female Reproductive History Menstrual Age of Menarche: 15 Review of Systems Const All systems reviewed & are unremarkable except as noted in HPI and below Physical Exam Vital Signs: Last Vital Signs Pulse 77 12/19/23 15:18 BP 146/84 H 12/19/23 15:18 BMI result Body Mass Index 30.2 Const General: no acute distress Chest Other: Exam deferred GI Inspection: Yes normal to inspection Extrem General: Yes no clubbing, cyanosis or edema Assessment & Plan Assessment & Plan (1) Abnormal mammogram of left breast: Code(s): R92.8 - Other abnormal and inconclusive findings on diagnostic imaging of breast Category: Medical Plan 58-year-old female patient returning for follow-up breast examination. She was noted to have a low suspicion area of calcification in the left breast which has not changed significantly in the past 1.5 years. She returns today to review genetic testing results which revealed no clinically significant mutations and no variance of unknown significance. Her breast cancer risk score was well below the 20% threshold. She will return following her next mammogram for routine breast examination. If all is well at that point, no further follow-up will be required. Coding Level of Care Code Est Pt Level 3 (17919) Diagnoses Abnormal mammogram of left breast R92.8
[2023-12-19 15:18] VITALS: BP 146/84; PULSE 77; BMI 30.2
== END 2023-12-19 15:30 | disposition home or self-care (01) ==
PROVIDERS: PCP Internal Medicine; Visit Provider Surgery
DX: R92.8 Other abnormal and inconclusive findings on diagnostic imaging of breast (principal)
CPT/HCPCS: 99213

== ENCOUNTER → 2023-12-19 15:09 | Outpatient (BNVA) | payer OTHER, SELFPAY | PROVIDERS: PCP Internal Medicine; Visit Provider Surgery | DX: R92.8 Other abnormal and inconclusive findings on diagnostic imaging of breast (principal) | CPT/HCPCS: 99212 ==

== ENCOUNTER 2023-12-31 07:16 | Outpatient (REF) | payer OTHER, SELFPAY ==
--- NOTE | ~2023-12-31 | FL_ITS ---
EXAMINATION: XR FLUOROSCOPY WITH IMAGES CLINICAL INFORMATION: Sacrococcygeal disorders. COMPARISON: None available. TECHNIQUE: Fluoroscopy Supervised By: Dr. Moore. Fluoroscopy Time: 0.3. Cumulative Dose: 3.69 mGy. DAP: 0.0641 Gycm2. Images: 2. FINDINGS: Intraoperative fluoroscopy and spot films were performed during a procedure in the OR. Spinal needle seen overlying both the right and left SI joint with contrast injected into each joint. Please see Dr. Moore's report for complete details. FL/FL guidance in treatment room IMPRESSION: Intraoperative fluoroscopy and spot films were obtained. Please see Dr. Moore's report for complete details.
== END 2023-12-31 07:17 | disposition home or self-care (01) ==
LOC: CF 07:16
PROVIDERS: PCP Internal Medicine; Visit Provider Anesthesiology
DX: M53.3 Sacrococcygeal disorders, not elsewhere classified (principal); M62.838 Other muscle spasm; M79.7 Fibromyalgia
CPT/HCPCS: 27096; J2795; Q9967

== ENCOUNTER 2023-12-31 14:34 | Outpatient (AMB) | payer OTHER, SELFPAY ==
[2023-12-31 15:09] VITALS: BP 124/72; PULSE 82; RESP 14; O2SAT 97; BMI 30.2
--- NOTE | 2023-12-31 15:09 | MHC.OFFVIS ---
Vital Signs 12/31/23 15:09 12/31/23 15:10 Height 5 ft 4 in Weight 176 lb BMI 30.2 BP 124/72 120/86 Blood Pressure Location Lt brachial Lt brachial Position Sitting Sitting Respiration 14 18 Pulse 82 70 Pulse Source Pulse Oximeter Pulse Oximetry (%) 97 98 Oxygen Delivery Method Room Air Room Air Comment Pre-Op Post-Op Intake Visit Reasons: Jacques Dx SIJ inj Allergies cat dander [cats] Allergy (Intermediate, Verified 01/02/24 14:00) Itchy Eyes and burning cigarette smoke Allergy (Intermediate, Verified 01/02/24 14:00) migraines latex Allergy (Intermediate, Verified 01/02/24 14:00) Rash trazodone Allergy (Intermediate, Verified 01/02/24 14:00) palpitations Penicillins Adverse Reaction (Intermediate, Verified 01/02/24 14:00) Abdominal Pain tamsulosin Allergy (Severe, Uncoded 12/19/23 15:18) Dizziness PFSH Medical History Muscle spasm Microscopic hematuria Hot flashes Vitamin D deficiency Fibromyalgia Osteoarthritis Chronic GERD Depression, major, recurrent Surgical History History of esophagogastroduodenoscopy (EGD) H/O colonoscopy History of hysterectomy History of surgery Family History Father No problems noted. Mother Asthma Dementia Alzheimer's disease Paternal Aunt Lung cancer Breast cancer, Onset Age: 62 Brother No problems noted. Brother No problems noted. Brother No problems noted. Sister No problems noted. Sister No problems noted. Sister No problems noted. Paternal Aunt Breast cancer, Onset Age: 70 Other Mental health disorder Social History Household Members: Significant Other and Children Household Members Other:: 2 children Housing: House Are you a primary personal care attendant to a significant other at home: No Do you presently have visiting nurse or other home services: No Alcohol intake: never Patient Tobacco Use Status: Never used Tobacco e-Cigarette/Vaping Use: Never Used service: No Current occupational status: unemployed and disabled Cognitive needs: No Hearing needs: No Vision needs: Yes Female Reproductive History Menstrual Age of Menarche: 15 Physical Exam Vital Signs: Last Vital Signs Pulse 70 12/31/23 15:10 Resp 18 12/31/23 15:10 BP 120/86 12/31/23 15:10 Pulse Ox 98 12/31/23 15:10 Oxygen Delivery Method Room Air 12/31/23 15:10 BMI result Body Mass Index 30.2 Assessment & Plan Assessment & Plan (1) Sacroiliac joint pain: Code(s): M53.3 - Sacrococcygeal disorders, not elsewhere classified Category: Medical Plan Bilateral diagnostic sacroiliac joint injection. Informed consent was explained thoroughly to the patient. All questions about benefits and risks for the procedure were answered. Patient came to the operating room and was positioned prone on the operating table with the pillow under the pelvis. Time out was performed delineating name and of the patient, allergies and the nature of the procedure. The lower back and buttocks of the patient were prepped with ChloraPrep prepped and draped with sterile utility towels. C-arm was brought over the operating field and sq picture of patient's pelvis was demonstrated on the screen. For the right joint tilting C-arm contralateral to the site of the joint the most posterior portion of the joints was superimposed with anterior silhouette of the joint. Skin was injected in the projection of the joint slightly medial to the location of the joint with 25 gauge 1/2 inch needle using local lidocaine 2% .After that 22 gauge 3 and 1/2 inch needle was driven to the right joint in tunnel vision fashion. When needle entered the joint capsule injection of the contrast was performed demonstrating intra-articular and minimally periarticular spread of the contrast. After that 4 cc. of ropivacaine 0.5% was injected into the joint. After that the attention was concentrated on the left side joint were procedure was repeated in mirroring fashion. Upon completion of the injections the needle was removed Sterile dressing was applied. Upon completion of the injection patient was taken outside of the operating room to the recovery room where recovered uneventfully. Orders: Orders FL guidance in treatment room 12/31/23 M53.3 - Sacrococcygeal disorders, not elsewhere classified Coding Level of Care Code Procedure Only Diagnoses Sacroiliac joint pain M53.3
[2023-12-31 15:10] VITALS: BP 120/86; PULSE 70; RESP 18; O2SAT 98
== END 2023-12-31 15:23 | disposition home or self-care (01) ==
LOC: HO.PMCPRC 14:34
PROVIDERS: PCP Internal Medicine; Visit Provider Anesthesiology
DX: M53.3 Sacrococcygeal disorders, not elsewhere classified (principal)
CPT/HCPCS: 27096

== ENCOUNTER 2024-01-02 13:51 | Outpatient (AMB) | payer OTHER, SELFPAY ==
--- NOTE | 2024-01-02 13:56 | A.OFFVIS_ITS ---
Vital Signs 01/02/24 13:59 Height 5 ft 4 in Weight 176 lb BMI 30.2 BP 123/75 Blood Pressure Location Lt brachial Position Sitting Pulse 81 Pulse Source Pulse Oximeter Pulse Oximetry (%) 99 Oxygen Delivery Method Room Air Intake Visit Reasons: s/p asa Dx SIJ inj Intake Note: Pain today 03/28 Superintendent Institution Required: No Accompanied by: Self / Same As Patient Allergies cat dander [cats] Allergy (Intermediate, Verified 01/02/24 14:00) Itchy Eyes and burning cigarette smoke Allergy (Intermediate, Verified 01/02/24 14:00) migraines latex Allergy (Intermediate, Verified 01/02/24 14:00) Rash trazodone Allergy (Intermediate, Verified 01/02/24 14:00) palpitations Penicillins Adverse Reaction (Intermediate, Verified 01/02/24 14:00) Abdominal Pain tamsulosin Allergy (Severe, Uncoded 12/19/23 15:18) Dizziness HPI Comments Details: Patient presents today to assess response to Bilateral diagnostic sacroiliac joint injections on 12/31/[address] Moore. Patient reports minimal to no pain relief since injections with exacerbation of low back. Patient reports injections made her pain worse than it was. Patient also reports widespread body pain, but worse in her lower back. She is interested to pursue formal physical therapy through [facility]. Patient reports minimal response to tizanidine and is interested to start cyclobenzaprine which she use to take in the past with good response. Denies any recent cough, cold, infection, fever, any significant changes in her medical history, medications or recent hospitalizations. Past Procedures: 12/31/23: Bilateral Diagnostic SIJ injections-minimal pain relief, pain 2-3/10 for first 2 hours, than up to 7/10 after 6 hours PRIOR: Patient presents today to discuss interventional treatments for low back pain after recent Neurosurgical evaluation. Patient states she was deemed non surgical. Neurosurgical evaluation was reviewed and available in EMR. Patient continues to endorse low back pain extending to her sacral areas bilaterally, worse on the left side. Her pain increases significantly with walking, changing positions or exercising. She continues HEP guided by what she previously learned at PT. We will proceed with diagnostic bilateral sacroiliac joint injections as next steps. Patient states NSAIDs, muscle relaxant, heat therapy, gabapentin with continued symptoms. Denies any recent cough, cold, infection, fever, any significant changes in her medical history, medications or recent hospitalizations. PRIOR: Patient presents today to discuss recent lumbar spine MRI results. She continues to endorse significant low back pain with radiation into her left leg with numbness and tingling. Patient reports she has difficulty carrying out her usual daily activities, bending, changing positions, walking, or prolonged standing. She has minimal symptoms when sitting but cannot tolerate prolonged sitting either. Denies any recent cough, cold, infection, fever, bladder or bowel dysfunction, saddle anesthesia, any significant changes in her medical history, medications or recent hospitalizations. PRIOR: Patient is a pleasant 58 years old female with prior history of fibromyalgia, multiple joint pain, anxiety, depression, low back pain, multiple surgeries x6 for urine incontinence and prolapse (PV sling and mesh implant at [facility] and [facility]), presents today for initial evaluation of low back pain with radiation into her left lower extremity. Denies any recent trauma or injury but reports falls x2 recently due to left leg pain and weakness. Back pain is axial and also radiates into her left buttock and left lower extremity with tingling and paresthesias in her toes. She also experiences widespread body pain, left hand tingling and right foot tingling. She was previously seen at [facility] and received back injections with good relief. Pain affects her daily activities, mobility, sleep, social interactions, especially with her grandchildren. Patient reports she is unable to get back up if she bends down or flexes forward due to significant exacerbation of pain. Denies any fever, unintentional weight loss, dizziness, foot drop, bladder or bowel dysfunction, or saddle anesthesia. Reports intermittent left lower extremity weakness. In regards to fibromyalgia which she states was diagnosed after multiple urological surgeries in 2010, she goes to gym every other day doing treadmill, light weights and elliptical and on other days she does swimming. Patient reports if she does not exercise regularly, her widespread pain is worse which is accompanied by swelling sensations and spasms. She also belongs to a Fibromyalgia support group on [employer] and states this has been beneficial. Patient is interested in Cognitive Behavioral Therapy to help her with sleep and chronic pain. Location Lower back radiates to LLE posteriorly Duration Chronic pain, worsening for the past 6 months Characteristics of symptom or complaint Stabbing, sharp, shooting, aching, tingling, throbbing, radiating, tiring Aggravating or associated factors Standing, sitting for extended time, bending, cold weather changes Relieving factors Laying on side, gabapentin, NSAIDs, Tylenol, magnesium, turmeric Treatment Back injections, PT >3 years ago, gym, aqua therapy, acupuncture PFSH Medical History Muscle spasm Microscopic hematuria Hot flashes Vitamin D deficiency Fibromyalgia Osteoarthritis Chronic GERD Depression, major, recurrent Surgical History History of esophagogastroduodenoscopy (EGD) H/O colonoscopy History of hysterectomy History of surgery Family History Father No problems noted. Mother Asthma Dementia Alzheimer's disease Paternal Aunt Lung cancer Breast cancer, Onset Age: 62 Brother No problems noted. Brother No problems noted. Brother No problems noted. Sister No problems noted. Sister No problems noted. Sister No problems noted. Paternal Aunt Breast cancer, Onset Age: 70 Other Mental health disorder Social History Household Members: Significant Other and Children Household Members Other:: 2 children Housing: House Are you a primary patient care associate to a significant other at home: No Do you presently have visiting nurse or other home services: No Alcohol intake: never Patient Tobacco Use Status: Never used Tobacco e-Cigarette/Vaping Use: Never Used service: No Current occupational status: unemployed and disabled Cognitive needs: No Hearing needs: No Vision needs: Yes Female Reproductive History Menstrual Age of Menarche: 15 Review of Systems Const All systems reviewed & are unremarkable except as noted in HPI and below Physical Exam Vital Signs: Last Vital Signs Pulse 81 01/02/24 13:59 BP 123/75 01/02/24 13:59 Pulse Ox 99 01/02/24 13:59 Oxygen Delivery Method Room Air 01/02/24 13:59 BMI result Body Mass Index 30.2 General: Appears afebrile. No acute distress. Alert and oriented. Mood and affect appropriate. Follows and participates in conversation appropriately. Respiratory effort is unlabored. No cough. Able to transition from sit to stand unassisted. Ambulates with bilaterally normal heel strike and toe off. Back/Spine/Pelvis Other: Limited lumbar spine ROM due to pain. Facet loading test positive bilaterally. Guillermo?s test is positive bilaterally, left>right. +Bob bilaterally. No groin pain with I/E hip rotations. Multiple TTP 16/16 tender point upper and lower extremities. Cervical Spine: cervical ROM normal, cervical muscular tenderness, pain with cervical ROM, No Cervical spine tenderness and No step off deformity Thoracic/Lumbar Spine: thoracic and lumbar spine normal to inspection, No Thoracic/lumbar spine scar(s), Lasegue's sign negative, straight leg raise negative bilaterally, pain with thoraco-lumbar ROM, paraspinal muscle tenderness, thoraco-lumbar ROM limited, No thoracic spinal tenderness and lumbar spinal tenderness (L4-S1) Pelvis: buttock tenderness bilaterally Sacroiliac joints: bilaterally tender to palpation Results Reviewed Results Reviewed: MR SPINE LUMBAR without CONTRAST 11/04/23 at [facility] INDICATION: Radiculopathy, lumbar region. Spondylosis without myelopathy or radiculopathy of lumbar region.. TECHNIQUE: Unenhanced multiplanar, multisequence MR imaging of the lumbar spine. COMPARISON: MR lumb: 03/18/23, 09/04/19; XR lumbar: 02/28/23. FINDINGS: Normal lumbar alignment is demonstrated. Vertebral heights are well maintained. There is hemangioma within the L2 vertebral body. Bone marrow signal is within normal limits, and no suspicious osseous lesion is identified. Conus medullaris is unremarkable. Disc desiccation is demonstrated in the lower lumbar spine greater at L5-S1. Paraspinal soft tissues and visualized portions of the abdomen and pelvis are unremarkable. Left renal cysts are demonstrated. At L1-2 there is no significant disc herniation or protrusion. No central canal or neural foraminal stenosis is demonstrated. At L2-3 there is no significant disc herniation or protrusion. No central canal or neural foraminal stenosis is demonstrated. At L3-4 there is no significant disc herniation or protrusion. No central canal or neural foraminal stenosis is demonstrated. At L4-5 there is mild annular disc bulge and mild facet arthrosis. Synovial cyst on the left appears stable. There is mild narrowing of the left lateral recess which appears similar to prior study. There is mild bilateral neural foraminal stenosis. The appearance is stable compared with the prior study. At L5-S1 there is there is broad-based disc bulge and mild facet arthrosis. Prominent epidural fat is redemonstrated. Central canal remains patent with mild bilateral neural foraminal stenosis slightly greater on the left. IMPRESSION: Grossly stable appearance degenerative changes probably at L4-5 and L5-S1. Narrowing of the left lateral recess L4-5 appears stable compared prior study with contact of the descending left L5 nerve root. XR LUMBOSACRAL SPINE WITH OBLIQUES 10/04/23 CLINICAL INFORMATION: Low back pain with bilateral sciatica, left greater than right. COMPARISON: MRI lumbar spine 03/18/2023, x-ray lumbar spine 02/28/2023 and 06/15/2019. TECHNIQUE: Seven views of the lumbar spine inclusive of flexion and extension views. FINDINGS: Mild leftward curvature of the lumbar spine. Moderate degenerative changes in the bilateral sacroiliac joints. Facet arthritis in the mid to lower lumbar spine. Minimal grade 1 anterolisthesis of L4 on L5 with extension and flexion. Mild multilevel lumbar spondylosis with loss of disc space height, most notable at L4-L5 and L5-S1. IMPRESSION: Mild multilevel lumbar spondylosis, most notable at L4-L5 and L5-S1. Assessment & Plan Assessment & Plan (1) Lumbar degenerative disc disease: Code(s): M51.36 - Other intervertebral disc degeneration, lumbar region Category: Medical (2) Lumbar spondylosis: Code(s): M47.816 - Spondylosis without myelopathy or radiculopathy, lumbar region Category: Medical (3) Sacroiliitis: Code(s): M46.1 - Sacroiliitis, not elsewhere classified Category: Medical (4) Sacroiliac joint pain: Code(s): M53.3 - Sacrococcygeal disorders, not elsewhere classified Category: Medical (5) Muscle spasm: Code(s): M62.838 - Other muscle spasm Category: Medical (6) Chronic pain syndrome: Code(s): G89.4 - Chronic pain syndrome Category: Medical (7) Fibromyalgia: Code(s): M79.7 - Fibromyalgia Category: Medical Plan Patient is status post bilateral diagnostic SIJ injection with minimal pain relief and exacerbation of her baseline low back pain after injections. Her symptoms and exam are continue to be consistent with low back and SIJ pain symptoms. She was deemed non-surgical candidate at her recent Neurosurgical Evaluation. Patient is interested to pursue physical therapy at her [facility]. Script provided. Continue Celebrex, heat/ice therapy, activity modification, weight optimization, adequate hydration and daily physical activity as tolerated. Script provided for cyclobenzaprine. Side effects and precautions reviewed with the patient. Patient will stop tizanidine. All questions and concerns have been answered and patient agreed with the plan. Follow up after PT and sooner as needed. Orders: Orders PT Evaluation and Treatment Today M46.1 - Sacroiliitis, not elsewhere classified, M47.816 - Spondylosis without myelopathy or radiculopathy, lumbar region, M51.36 - Other intervertebral disc degeneration, lumbar region, M53.3 - Sacrococcygeal disorders, not elsewhere classified Medications: New cyclobenzaprine 5 mg PO TID 30 days PRN 90 tabs 0RF muscle spasm G89.4 - Chronic pain syndrome, M51.36 - Other intervertebral disc degeneration, lumbar region, M62.838 - Other muscle spasm Discontinued tizanidine Discontinued Reason: Patient Completed Course 2 mg PO BID PRN 60 tabs 0RF muscle spasticity G89.4 - Chronic pain syndrome, M62.838 - Other muscle spasm Coding Level of Care Code Est Pt Level 4 (75000) Diagnoses Lumbar degenerative disc disease M51.36 Lumbar spondylosis M47.816 Sacroiliitis M46.1 Sacroiliac joint pain M53.3 Muscle spasm M62.838 Chronic pain syndrome G89.4 Fibromyalgia M79.7
[2024-01-02 13:59] VITALS: BP 123/75; PULSE 81; O2SAT 99; BMI 30.2
== END 2024-01-02 14:13 | disposition home or self-care (01) ==
PROVIDERS: PCP Internal Medicine; Visit Provider Nurse Practitioner Family
DX: M51.36 Other intervertebral disc degeneration, lumbar region (principal); M47.816 Spondylosis without myelopathy or radiculopathy, lumbar region; M46.1 Sacroiliitis, not elsewhere classified; M53.3 Sacrococcygeal disorders, not elsewhere classified; M62.838 Other muscle spasm; G89.4 Chronic pain syndrome; M79.7 Fibromyalgia
CPT/HCPCS: 99214

== ENCOUNTER → 2024-01-02 13:51 | Outpatient (BNVA) | payer OTHER, SELFPAY | PROVIDERS: PCP Internal Medicine; Visit Provider Nurse Practitioner Family | DX: M51.36 Other intervertebral disc degeneration, lumbar region (principal); M47.816 Spondylosis without myelopathy or radiculopathy, lumbar region; M46.1 Sacroiliitis, not elsewhere classified; M53.3 Sacrococcygeal disorders, not elsewhere classified; M62.838 Other muscle spasm; M79.7 Fibromyalgia; G89.4 Chronic pain syndrome | CPT/HCPCS: 99212 ==

== ENCOUNTER 2024-01-10 12:32 | Outpatient (AMB) | payer OTHER, SELFPAY ==
--- NOTE | 2024-01-10 12:37 | A.OFFPC_ITS ---
Vital Signs 3 01/10/24 12:39 Height 5 ft 4 in Weight 175 lb BMI 30.0 BP 104/76 Blood Pressure Location Rt brachial Position Sitting Pulse 100 Pulse Source Pulse Oximeter Pulse Oximetry (%) 98 Oxygen Delivery Method Room Air Intake Visit Reasons: PE/4 Month follow up Allergies cat dander [cats] Allergy (Intermediate, Verified 01/10/24 12:39) Itchy Eyes and burning cigarette smoke Allergy (Intermediate, Verified 01/10/24 12:39) migraines latex Allergy (Intermediate, Verified 01/10/24 12:39) Rash trazodone Allergy (Intermediate, Verified 01/10/24 12:39) palpitations Penicillins Adverse Reaction (Intermediate, Verified 01/10/24 12:39) Abdominal Pain tamsulosin Allergy (Severe, Uncoded 01/10/24 12:39) Dizziness Medication List - Last Reconciled 01/10/24 by Gaudencio Ballard MD [Adult Sanitary Wipes As directed] albuterol sulfate 2.5 mg (3 mL) inhalation QID PRN amitriptyline 10 mg PO BEDTIME celecoxib (Celebrex) 200 mg PO BID PRN cholecalciferol (vitamin D3) 25 mcg PO DAILY 90 days clobetasol 0.05% 1 appl topical DAILY 30 days cyclobenzaprine 5 mg PO TID PRN 30 days gabapentin 300 mg PO BEDTIME 90 days ketotifen fumarate 0.025%(0.035%) drps ophthalmic (eye) lorazepam 0.5 mg PO DAILY PRN loteprednol etabonate 0.5% drps ophthalmic (eye) magnesium 250 mg PO BID naproxen 500 mg PO BID PRN 30 days nebulizers with supplies and all needed equipment, to use for updraft treatments [Poise incontinence pads Requires poise due to allergies. NS] pyridoxine (vitamin B6) 100 mg PO DAILY turmeric mg PO [Updraft machine tubing As directed] venlafaxine ER 150 mg PO BEDTIME 90 days Tobacco use date assessed: 11/26/23 Dental Screening Dental Screen Date: 11/26/23 HPI PE/4 Month follow up 2 HPI0 Details Patient is a 58-year-old female came in today for physical examination Mammogram was November of this year Colonoscopy was in 2021 Dr. Paz Labs done November of this year reviewed again LDL is 144 Hemoglobin A1c was fine Patient went for pedicure few days ago ended up having reaction around her nails Which is now itchy and swollen She is requesting help with that She has tried [id number] hydrocortisone which did not help A now she is having allergic reaction around her neck as well I have sent prednisone 20 mg once a day for 5 days and clobetasol cream to be used locally Patient takes gabapentin 300 mg at night fibromyalgia and lorazepam as needed for anxiety She has appointment with back specialist coming up due to her worsening back pain Patient says that she need handicap placard as it is getting difficult for her to walk Paperwork filled She also has appointment with [facility] for small nonobstructing bilateral renal calculi And [facility] for follow-up [facility] Medical History Muscle spasm Microscopic hematuria Hot flashes Vitamin D deficiency Fibromyalgia Osteoarthritis Chronic GERD Depression, major, recurrent Surgical History History of esophagogastroduodenoscopy (EGD) H/O colonoscopy History of hysterectomy History of surgery Family History Father No problems noted. Mother Asthma Dementia Alzheimer's disease Paternal Aunt Lung cancer Breast cancer, Onset Age: 62 Brother No problems noted. Brother No problems noted. Brother No problems noted. Sister No problems noted. Sister No problems noted. Sister No problems noted. Paternal Aunt Breast cancer, Onset Age: 70 Other Mental health disorder Social History Household Members: Significant Other and Children Household Members Other:: 2 children Housing: House Are you a primary pet care assistant to a significant other at home: No Do you presently have visiting nurse or other home services: No Alcohol intake: never Patient Tobacco Use Status: Never used Tobacco e-Cigarette/Vaping Use: Never Used service: No Current occupational status: unemployed and disabled Cognitive needs: No Hearing needs: No Vision needs: Yes Female Reproductive History Menstrual Age of Menarche: 15 Questionnaire Thrive Questionnaire Date Thrive assessed: 11/26/23 OLI-7 AMB Questionnaire OLI-7 Date OLI - 7 assessed: 11/26/23 Source: Developed by Drs. Gatito Agustin, Catina Hunter, Adrien Liao and colleagues, with an educational kori from [employer]. Review of Systems Const Denies chills, Denies fever(s) and Denies headache(s) Eyes Denies blurry vision ENT Denies headache(s), Denies nasal discharge, Denies nasal obstruction, Denies odynophagia and Denies sinus pain Card Denies chest pain at rest and Denies chest pain with activity Resp Denies cough and Denies hemoptysis GI Denies diarrhea, Denies odynophagia, Denies vomiting and Denies hematemesis Reports as per HPI Musc Denies abnormal gait Skin/Breast Reports as per HPI Neuro Denies Neuro-related abnormal movements, Denies Abnormal speech present, Denies abnormal gait, Denies headache(s) and Denies Sensory deficit (Neuro) Psych Denies mood swings and Denies paranoia Endo Reports as per HPI Tom/Lymph Reports as per HPI Aller/Immun Reports as per HPI Physical exam (Primary Care) Vital Signs: Last Vital Signs Pulse 100 01/10/24 12:39 BP 104/76 01/10/24 12:39 Pulse Ox 98 01/10/24 12:39 Oxygen Delivery Method Room Air 01/10/24 12:39 BMI result Body Mass Index 30.0 Tobacco/Smoking Status: Tobacco use Status Tobacco use date assessed 11/26/23 01/10/24 12:38 Patient Tobacco Use Status Never used Tobacco 01/10/24 12:38 e-Cigarette/Vaping Use Never Used 01/10/24 12:38 Thrive Assessment: Date of Thrive Assessment Date Thrive assessed 11/26/23 01/10/24 12:38 Const General: cooperative, comfortable and no acute distress Orientation/consciousness: patient oriented x3 HENMT Head: Yes normocephalic and Yes atraumatic Eyes General: appearance normal, both eyes and all related structures Pupils: Equal, round and reactive pupils present EOM: EOMs intact bilaterally Neck Neck: Yes supple and No lymphadenopathy Thyroid: Thyroid normal Lymphatic: no lymphadenopathy noted Resp Effort & Inspection: normal respiratory effort and able to speak in complete sentences Auscultation: clear to auscultation bilaterally Cardio Heart sounds: S1 normal heart sound present and S2 normal heart sound present GI Palpation (GI): Soft to palpation and nontender Auscultation: normal bowel sounds General: Yes no CVA tenderness Back/Spine/Pelvis Back: no CVA tenderness Skin General skin exam: elasticity normal and turgor normal Neuro General: patient oriented x3 and gait normal Cranial nerves: Yes Equal, round and reactive pupils present Speech: No Abnormal speech present Sensory Exam: No Sensory deficit (Neuro) Extrem General: Yes normal exam except as noted and No edema Ankle/foot/toe images: 2 1. Redness and swelling around nails 2. Redness and swelling around nails Assessment and Plan Assessment & Plan (1) Encounter for general adult medical examination with abnormal findings: Code(s): Z00.01 - Encounter for general adult medical examination with abnormal findings (2) Allergic reaction: Code(s): T78.40XA - Allergy, unspecified, initial encounter Qualifiers: Encounter type: initial encounter Qualified Code(s): T78.40XA - Allergy, unspecified, initial encounter (3) Depression, major, recurrent: Code(s): F33.9 - Major depressive disorder, recurrent, unspecified Qualifiers: Active/Remission status: in partial remission Qualified Code(s): F33.41 - Major depressive disorder, recurrent, in partial remission (4) Chronic GERD: Code(s): K21.9 - Gastro-esophageal reflux disease without esophagitis (5) Fibromyalgia: Code(s): M79.7 - Fibromyalgia (6) Hot flashes: Code(s): R23.2 - Flushing (7) Vitamin D deficiency: Code(s): E55.9 - Vitamin D deficiency, unspecified (8) Lipid disorder: Code(s): E78.9 - Disorder of lipoprotein metabolism, unspecified (9) Polyarthralgia: Code(s): M25.50 - Pain in unspecified joint (10) Heart palpitations: Code(s): R00.2 - Palpitations (11) Microscopic hematuria: Code(s): R31.29 - Other microscopic hematuria (12) Renal calculi: Code(s): N20.0 - Calculus of kidney (13) Lumbar radiculopathy: Code(s): M54.16 - Radiculopathy, lumbar region (14) Chronic pain syndrome: Code(s): G89.4 - Chronic pain syndrome Plan Patient is a 58-year-old female came in today for physical examination Mammogram was November of this year Colonoscopy was in 2021 Dr. Paz Labs done November of this year reviewed again LDL is 144 Hemoglobin A1c was fine Patient went for pedicure few days ago ended up having reaction around her nails Which is now itchy and swollen She is requesting help with that She has tried [id number] hydrocortisone which did not help A now she is having allergic reaction around her neck as well I have sent prednisone 20 mg once a day for 5 days and clobetasol cream to be used locally Patient takes gabapentin 300 mg at night fibromyalgia and lorazepam as needed for anxiety She has appointment with back specialist coming up due to her worsening back pain Patient says that she need handicap placard as it is getting difficult for her to walk Paperwork filled She also has appointment with [facility] for small nonobstructing bilateral renal calculi And [facility] for follow-up Medications: New 2 prednisone 20 mg PO DAILY 5 days 5 tabs 0RF triamcinolone acetonide 0.1% 1 appl topical BID 7 days 30 grams 0RF Changed 2 From lorazepam 0.5 mg PO DAILY PRN 30 tabs 0RF anxiety To lorazepam 0.5 mg PO DAILY 90 days PRN 60 tabs 0RF anxiety Refilled 2 gabapentin 300 mg PO BEDTIME 90 days 90 caps 0RF M79.7 - Fibromyalgia Discontinued 2 clobetasol 0.05% Discontinued Reason: Doctor's Order 1 appl topical DAILY 30 days 60 grams 0RF Eczema Coding Level of Care Code Est Pt Level 3 (60170) Est Pt Prev Care 40-64y(99576) Diagnoses Encounter for general adult medical examination with abnormal findings Z00.01 Allergic reaction, initial encounter T78.40XA Encounter type: initial encounter Recurrent major depressive disorder, in partial remission F33.41 Active/Remission status: in partial remission Chronic GERD K21.9 Fibromyalgia M79.7 Hot flashes R23.2 Vitamin D deficiency E55.9 Lipid disorder E78.9 Polyarthralgia M25.50 Heart palpitations R00.2 Microscopic hematuria R31.29 Renal calculi N20.0 Lumbar radiculopathy M54.16 Chronic pain syndrome G89.4
[2024-01-10 12:39] VITALS: BP 104/76; PULSE 100; O2SAT 98
== END 2024-01-10 13:14 | disposition home or self-care (01) ==
PROVIDERS: PCP Internal Medicine; Visit Provider Internal Medicine
DX: Z00.01 Encounter for general adult medical examination with abnormal findings (principal); F33.41 Major depressive disorder, recurrent, in partial remission; T78.40XA Allergy, unspecified, initial encounter; K21.9 Gastro-esophageal reflux disease without esophagitis; M79.7 Fibromyalgia; R23.2 Flushing; E55.9 Vitamin D deficiency, unspecified; E78.9 Disorder of lipoprotein metabolism, unspecified; M25.50 Pain in unspecified joint; R00.2 Palpitations; R31.29 Other microscopic hematuria; N20.0 Calculus of kidney
CPT/HCPCS: 99213; 99396

== ENCOUNTER 2024-02-28 10:29 | Outpatient (AMB) | payer OTHER, SELFPAY ==
--- NOTE | 2024-02-28 10:32 | MHC.OFFVIS ---
Vital Signs 02/28/24 10:37 Height 5 ft 4 in Weight 170 lb BMI 29.2 BP 111/75 Blood Pressure Location Lt brachial Position Sitting Pulse 75 Pulse Source Pulse Oximeter Pulse Oximetry (%) 99 Oxygen Delivery Method Room Air Intake Visit Reasons: CHRONIC BACK PAIN Intake Note: Pain today 02/25 Architectural Inspector Required: No Accompanied by: Self / Same As Patient Allergies cat dander [cats] Allergy (Intermediate, Verified 02/28/24 10:38) Itchy Eyes and burning cigarette smoke Allergy (Intermediate, Verified 02/28/24 10:38) migraines latex Allergy (Intermediate, Verified 02/28/24 10:38) Rash trazodone Allergy (Intermediate, Verified 02/28/24 10:38) palpitations Penicillins Adverse Reaction (Intermediate, Verified 02/28/24 10:38) Abdominal Pain tamsulosin Allergy (Severe, Uncoded 01/10/24 12:39) Dizziness HPI Comments Details: Patient presents today for follow up for persistent low back pain. Today she presents with axial and discogenic back pain as well as sacroiliac joint pain. Axial rotations and flexing forward causes moderate to severe pain. Sacroiliac joint injections provided no pain relief but exacerbated her lower back pain as well her fibromyalgia symptoms. She is starting PT on 03/13/24 at [facility] [place]. Patient reports minimal to no symptom relief with tizanidine or cyclobenzaprine. We discussed interventional treatments to address her pain. Patient declined injections at this time and plans to follow up with [facility] for re-evaluation. Denies any recent cough, cold, infection, fever, any significant changes in her medical history, medications or recent hospitalizations. Past Procedures: 12/31/23: Bilateral Diagnostic SIJ injections-minimal pain relief, pain 2-3/10 for first 2 hours, than up to 7/10 after 6 hours PRIOR: Patient presents today to discuss interventional treatments for low back pain after recent Neurosurgical evaluation. Patient states she was deemed non surgical. Neurosurgical evaluation was reviewed and available in EMR. Patient continues to endorse low back pain extending to her sacral areas bilaterally, worse on the left side. Her pain increases significantly with walking, changing positions or exercising. She continues HEP guided by what she previously learned at PT. We will proceed with diagnostic bilateral sacroiliac joint injections as next steps. Patient states NSAIDs, muscle relaxant, heat therapy, gabapentin with continued symptoms. Denies any recent cough, cold, infection, fever, any significant changes in her medical history, medications or recent hospitalizations. PRIOR: Patient presents today to discuss recent lumbar spine MRI results. She continues to endorse significant low back pain with radiation into her left leg with numbness and tingling. Patient reports she has difficulty carrying out her usual daily activities, bending, changing positions, walking, or prolonged standing. She has minimal symptoms when sitting but cannot tolerate prolonged sitting either. Denies any recent cough, cold, infection, fever, bladder or bowel dysfunction, saddle anesthesia, any significant changes in her medical history, medications or recent hospitalizations. PRIOR: Patient is a pleasant 58 years old female with prior history of fibromyalgia, multiple joint pain, anxiety, depression, low back pain, multiple surgeries x6 for urine incontinence and prolapse (PV sling and mesh [facility] at [facility] presents today for initial evaluation of low back pain with radiation into her left lower extremity. Denies any recent trauma or injury but reports falls x2 recently due to left leg pain and weakness. Back pain is axial and also radiates into her left buttock and left lower extremity with tingling and paresthesias in her toes. She also experiences widespread body pain, left hand tingling and right foot tingling. She was previously seen at [facility] and received back injections with good relief. Pain affects her daily activities, mobility, sleep, social interactions, especially with her grandchildren. Patient reports she is unable to get back up if she bends down or flexes forward due to significant exacerbation of pain. Denies any fever, unintentional weight loss, dizziness, foot drop, bladder or bowel dysfunction, or saddle anesthesia. Reports intermittent left lower extremity weakness. In regards to fibromyalgia which she states was diagnosed after multiple urological surgeries in 2010, she goes to gym every other day doing treadmill, light weights and elliptical and on other days she does swimming. Patient reports if she does not exercise regularly, her widespread pain is worse which is accompanied by swelling sensations and spasms. She also belongs to a Fibromyalgia support group on [employer] and states this has been beneficial. Patient is interested in Cognitive Behavioral Therapy to help her with sleep and chronic pain. Location Lower back radiates to LLE posteriorly Duration Chronic pain, worsening for the past 6 months Characteristics of symptom or complaint Stabbing, sharp, shooting, aching, tingling, throbbing, radiating, tiring Aggravating or associated factors Standing, sitting for extended time, bending, cold weather changes Relieving factors Laying on side, gabapentin, NSAIDs, Tylenol, magnesium, turmeric Treatment Back injections, PT >3 years ago, gym, aqua therapy, acupuncture PFSH Medical History Muscle spasm Microscopic hematuria Hot flashes Vitamin D deficiency Fibromyalgia Osteoarthritis Chronic GERD Depression, major, recurrent Surgical History History of esophagogastroduodenoscopy (EGD) H/O colonoscopy History of hysterectomy History of surgery Family History Father No problems noted. Mother Asthma Dementia Alzheimer's disease Paternal Aunt Lung cancer Breast cancer, Onset Age: 62 Brother No problems noted. Brother No problems noted. Brother No problems noted. Sister No problems noted. Sister No problems noted. Sister No problems noted. Paternal Aunt Breast cancer, Onset Age: 70 Other Mental health disorder Social History Household Members: Significant Other and Children Household Members Other:: 2 children Housing: House Are you a primary healthcare economics consultant to a significant other at home: No Do you presently have visiting nurse or other home services: No Alcohol intake: never Patient Tobacco Use Status: Never used Tobacco e-Cigarette/Vaping Use: Never Used service: No Current occupational status: unemployed and disabled Cognitive needs: No Hearing needs: No Vision needs: Yes Female Reproductive History Menstrual Age of Menarche: 15 Review of Systems Const All systems reviewed & are unremarkable except as noted in HPI and below Physical Exam Vital Signs: Last Vital Signs Pulse 75 02/28/24 10:37 BP 111/75 02/28/24 10:37 Pulse Ox 99 02/28/24 10:37 Oxygen Delivery Method Room Air 02/28/24 10:37 BMI result Body Mass Index 29.2 General: Appears afebrile. Alert and oriented. Mood and affect appropriate. Follows and participates in conversation appropriately. Respiratory effort is unlabored. No cough. Able to transition from sit to stand unassisted. Ambulates with bilaterally normal heel strike and toe off. General: Yes no CVA tenderness Back/Spine/Pelvis Other: Limited lumbar spine ROM due to pain. Axial rotations and flexing forward reproduce moderate-severe pain. Painceful Facet loading bilaterally. Guillermo?s test is positive bilaterally, left>right. +Bob bilaterally. No groin pain with I/E hip rotations. Multiple TTP 16/16 tender point upper and lower extremities. Back: no CVA tenderness Cervical Spine: cervical ROM normal, cervical muscular tenderness, pain with cervical ROM and No Cervical spine tenderness Thoracic/Lumbar Spine: thoracic and lumbar spine normal to inspection, No Thoracic/lumbar spine scar(s), Lasegue's sign negative, straight leg raise negative bilaterally, pain with thoraco-lumbar ROM, paraspinal muscle tenderness, thoraco-lumbar ROM limited, No thoracic spinal tenderness and lumbar spinal tenderness (L4-S1) Pelvis: buttock tenderness bilaterally Sacroiliac joints: bilaterally tender to palpation Results Reviewed Results Reviewed: MR SPINE LUMBAR without CONTRAST 11/04/23 at [facility] INDICATION: Radiculopathy, lumbar region. Spondylosis without myelopathy or radiculopathy of lumbar region.. TECHNIQUE: Unenhanced multiplanar, multisequence MR imaging of the lumbar spine. COMPARISON: MR lumb: 03/18/23, 09/04/19; XR lumbar: 02/28/23. FINDINGS: Normal lumbar alignment is demonstrated. Vertebral heights are well maintained. There is hemangioma within the L2 vertebral body. Bone marrow signal is within normal limits, and no suspicious osseous lesion is identified. Conus medullaris is unremarkable. Disc desiccation is demonstrated in the lower lumbar spine greater at L5-S1. Paraspinal soft tissues and visualized portions of the abdomen and pelvis are unremarkable. Left renal cysts are demonstrated. At L1-2 there is no significant disc herniation or protrusion. No central canal or neural foraminal stenosis is demonstrated. At L2-3 there is no significant disc herniation or protrusion. No central canal or neural foraminal stenosis is demonstrated. At L3-4 there is no significant disc herniation or protrusion. No central canal or neural foraminal stenosis is demonstrated. At L4-5 there is mild annular disc bulge and mild facet arthrosis. Synovial cyst on the left appears stable. There is mild narrowing of the left lateral recess which appears similar to prior study. There is mild bilateral neural foraminal stenosis. The appearance is stable compared with the prior study. At L5-S1 there is there is broad-based disc bulge and mild facet arthrosis. Prominent epidural fat is redemonstrated. Central canal remains patent with mild bilateral neural foraminal stenosis slightly greater on the left. IMPRESSION: Grossly stable appearance degenerative changes probably at L4-5 and L5-S1. Narrowing of the left lateral recess L4-5 appears stable compared prior study with contact of the descending left L5 nerve root. XR LUMBOSACRAL SPINE WITH OBLIQUES 10/04/23 CLINICAL INFORMATION: Low back pain with bilateral sciatica, left greater than right. COMPARISON: MRI lumbar spine 03/18/2023, x-ray lumbar spine 02/28/2023 and 06/15/2019. TECHNIQUE: Seven views of the lumbar spine inclusive of flexion and extension views. FINDINGS: Mild leftward curvature of the lumbar spine. Moderate degenerative changes in the bilateral sacroiliac joints. Facet arthritis in the mid to lower lumbar spine. Minimal grade 1 anterolisthesis of L4 on L5 with extension and flexion. Mild multilevel lumbar spondylosis with loss of disc space height, most notable at L4-L5 and L5-S1. IMPRESSION: Mild multilevel lumbar spondylosis, most notable at L4-L5 and L5-S1. Assessment & Plan Assessment & Plan (1) Lumbar spondylosis: Code(s): M47.816 - Spondylosis without myelopathy or radiculopathy, lumbar region Category: Medical (2) Sacroiliitis: Code(s): M46.1 - Sacroiliitis, not elsewhere classified Category: Medical (3) Chronic pain syndrome: Code(s): G89.4 - Chronic pain syndrome Category: Medical (4) Sacroiliac joint pain: Code(s): M53.3 - Sacrococcygeal disorders, not elsewhere classified Category: Medical (5) Lumbar degenerative disc disease: Code(s): M51.36 - Other intervertebral disc degeneration, lumbar region Category: Medical (6) Fibromyalgia: Code(s): M79.7 - Fibromyalgia Category: Medical Plan Patient presents today with pain consistent with low back, axial and discogenic, and SIJ pain symptoms. She was previously deemed non-surgical candidate. Given no pain relief with recent SIJ injections, patient is hesitant to proceed with any further interventional treatments at this time. She plans to follow up with [facility] for re-evaluation. Patient is [facility]. Continue Celebrex, heat/ice therapy, activity modification, weight optimization, adequate hydration and daily physical activity as tolerated. Short script provided for tramadol for moderate-severe pain only while she awaits surgical re-evaluation. Side effects and precautions discussed. Narcan sent with medication, educated patient on Narcan indication and administration. All questions and concerns have been answered and patient agreed with the plan. Follow up as needed. Medications: New tramadol 50 mg PO BID 15 days PRN 30 tabs 0RF pain G89.4 - Chronic pain syndrome, M46.1 - Sacroiliitis, not elsewhere classified, M47.816 - Spondylosis without myelopathy or radiculopathy, lumbar region, M53.3 - Sacrococcygeal disorders, not elsewhere classified, M54.16 - Radiculopathy, lumbar region naloxone 4 mg/actuation (Narcan) spray 1 dose into ONE nostril; alternate nostrils w each dose until help arrives 4 mg intranasal Q2M PRN 2 ea 0RF opioid overdose Discontinued amitriptyline Discontinued Reason: Patient Completed Course 10 mg PO BEDTIME 30 days 30 tabs 2RF for pain cyclobenzaprine Discontinued Reason: Patient Completed Course 5 mg PO TID 30 days PRN 90 tabs 0RF muscle spasm G89.4 - Chronic pain syndrome, M51.36 - Other intervertebral disc degeneration, lumbar region, M62.838 - Other muscle spasm Coding Level of Care Code Est Pt Level 4 (94457) Diagnoses Lumbar spondylosis M47.816 Sacroiliitis M46.1 Chronic pain syndrome G89.4 Sacroiliac joint pain M53.3 Lumbar degenerative disc disease M51.36 Fibromyalgia M79.7
[2024-02-28 10:37] VITALS: BP 111/75; PULSE 75; O2SAT 99; BMI 29.2
== END 2024-02-28 10:59 | disposition home or self-care (01) ==
PROVIDERS: PCP Internal Medicine; Visit Provider Nurse Practitioner Family
DX: M47.816 Spondylosis without myelopathy or radiculopathy, lumbar region (principal); M46.1 Sacroiliitis, not elsewhere classified; G89.4 Chronic pain syndrome; M53.3 Sacrococcygeal disorders, not elsewhere classified; M51.36 Other intervertebral disc degeneration, lumbar region; M79.7 Fibromyalgia
CPT/HCPCS: 99214

== ENCOUNTER → 2024-02-28 10:29 | Outpatient (BNVA) | payer OTHER, SELFPAY | PROVIDERS: PCP Internal Medicine; Visit Provider Nurse Practitioner Family | DX: M47.816 Spondylosis without myelopathy or radiculopathy, lumbar region (principal); M46.1 Sacroiliitis, not elsewhere classified; M53.3 Sacrococcygeal disorders, not elsewhere classified; M51.36 Other intervertebral disc degeneration, lumbar region; M79.7 Fibromyalgia; G89.4 Chronic pain syndrome | CPT/HCPCS: 99212 ==

== ENCOUNTER 2024-03-27 13:52 | Outpatient (AMB) | payer OTHER, SELFPAY ==
[2024-03-27 13:54] VITALS: BP 112/70; PULSE 72; O2SAT 98; BMI 30.2
--- NOTE | 2024-03-27 13:54 | MHC.PC.OV ---
Vital Signs 03/27/24 13:54 Height 5 ft 4 in Weight 176 lb 4 oz BMI 30.2 BP 112/70 Blood Pressure Location Rt brachial Position Sitting Pulse 72 Pulse Source Pulse Oximeter Pulse Oximetry (%) 98 Oxygen Delivery Method Room Air Intake Visit Reasons: follow up Allergies cat dander [cats] Allergy (Intermediate, Verified 03/27/24 13:56) Itchy Eyes and burning cigarette smoke Allergy (Intermediate, Verified 03/27/24 13:56) migraines latex Allergy (Intermediate, Verified 03/27/24 13:56) Rash trazodone Allergy (Intermediate, Verified 03/27/24 13:56) palpitations Penicillins Adverse Reaction (Intermediate, Verified 03/27/24 13:56) Abdominal Pain tamsulosin Allergy (Severe, Uncoded 01/10/24 12:39) Dizziness Medication List - Last Reconciled 03/27/24 by Gaudencio Ballard MD [Adult Sanitary Wipes As directed] albuterol sulfate 2.5 mg (3 mL) inhalation QID PRN celecoxib (Celebrex) 200 mg PO BID PRN cholecalciferol (vitamin D3) 25 mcg PO DAILY 90 days gabapentin 300 mg PO BEDTIME 90 days ketotifen fumarate 0.025%(0.035%) drps ophthalmic (eye) lorazepam 0.5 mg PO DAILY PRN 90 days loteprednol etabonate 0.5% drps ophthalmic (eye) magnesium 250 mg PO BID naloxone 4 mg/actuation (Narcan) 4 mg intranasal Q2M PRN naproxen 500 mg PO BID PRN 30 days nebulizers with supplies and all needed equipment, to use for updraft treatments [Poise incontinence pads Requires poise due to allergies. NS] prednisone 20 mg PO DAILY 5 days pyridoxine (vitamin B6) 100 mg PO DAILY tramadol 50 mg PO BID PRN 15 days triamcinolone acetonide 0.1% 1 appl topical BID 7 days turmeric mg PO [Updraft machine tubing As directed] valacyclovir 2,000 mg (2 x 1 gram) PO BID 1 day venlafaxine ER 150 mg PO BEDTIME 90 days Tobacco use date assessed: 03/27/24 Dental Screening Dental Screen Date: 03/27/24 Did you have a dental visit in the last 12 months?: Yes Did you have a dental problem in the last 6 months where you did not have access to dental care?: No Was dental information given to patient?: Patient has dentist HPI follow up HPI Details Patient is a 58-year-old female came in today to talk about few medical problems Patient continued to have hot flashes which is causing difficulty sleeping at night and making her anxious and depressed She had hysterectomy few years back Follicle stimulating hormone is in menopausal range She is concerned about her weight but going back and looking it her weight history I see that in 2020 she was also just about same weight She is also prediabetic, last hemoglobin A1c was 5.6 checked this year She has urine incontinence and is requesting wipes clean herself Prescribing vaginal estrogen to see if that helps. Her weight is 30.3 patient is obese She does not want to try injectables due to side effects, I have sent phentermine 15 mg she is to start taking 1 every day Side effect of medication reviewed with the patient She also a chronic lower back pain radiating to left leg and sometimes right leg She is requesting a cortisone injection, [facility] referral placed She is to return in 4 weeks for re-evaluation after starting phentermine. [facility] Medical History Muscle spasm Microscopic hematuria Hot flashes Vitamin D deficiency Fibromyalgia Osteoarthritis Chronic GERD Depression, major, recurrent Surgical History History of esophagogastroduodenoscopy (EGD) H/O colonoscopy History of hysterectomy History of surgery Family History Father No problems noted. Mother Asthma Dementia Alzheimer's disease Paternal Aunt Lung cancer Breast cancer, Onset Age: 62 Brother No problems noted. Brother No problems noted. Brother No problems noted. Sister No problems noted. Sister No problems noted. Sister No problems noted. Paternal Aunt Breast cancer, Onset Age: 70 Other Mental health disorder Social History Household Members: Significant Other and Children Household Members Other:: 2 children Housing: House Are you a primary healthcare advisory services manager to a significant other at home: No Do you presently have visiting nurse or other home services: No Alcohol intake: never Patient Tobacco Use Status: Never used Tobacco e-Cigarette/Vaping Use: Never Used service: No Current occupational status: unemployed and disabled Cognitive needs: No Hearing needs: No Vision needs: Yes Female Reproductive History Menstrual Age of Menarche: 15 Questionnaire PHQ-9 Over the last 2 weeks, how often have you been bothered by any of the following problems? 1. Little interest or pleasure in doing things: several days 2. Feeling down, depressed, or hopeless: several days 3. Trouble falling or staying asleep, or sleeping too much: nearly every day 4. Feeling tired or having little energy: nearly every day 5. Poor appetite or overeating: not at all 6. Feeling bad about yourself - or that you are a failure or have let yourself or your family down: not at all 7. Trouble concentrating on things, such as reading the newspaper or watching television: several days 8. Moving or speaking so slowly that other people could have noticed. Or the opposite - being so fidgety or restless that you have been moving around a lot more than usual: not at all 9. Thoughts that you would be better off or of hurting yourself in some way: not at all Total score: 9 Depression Screening Interpretation: Negative Depression Screening Done: Yes [id number] - PHQ-9 Billing: Yes Source: Developed by Drs. Gatito Agustin, Catina Hunter, Adrien Liao and colleagues, with an educational kori from [employer]. Thrive Questionnaire Date Thrive assessed: 03/27/24 I am a: Patient What is your living situation today?: I have a steady place to live Within the past 12 months, did the food you bought not last and you didn't have the money to get more?: Never true Within the past 12 months, did you worry whether your food would run out before you got money to buy more?: Never true Do you have trouble paying for medicines?: No Do you have trouble getting transportation to medical appointments?: No Do you have trouble paying your heating and electricity bill?: Yes Do you have trouble taking care of your child, family member or friend?: No Do you have trouble with day-to-day activities such as bathing, preparing meals, shopping, managing finances, etc.?: Yes Are you currently unemployed and looking for a job?: Yes Are you interested in more education?: No Please select the resources that you would like help with: Utilities Currently or been in a relationship where the following occur: No concerns reported THRIVE Score: 1 AUDIT C Alcohol Use Questionnaire (AUDIT-C) 1. How often do you have a drink containing alcohol?: Never 3. How often do you have six or more drinks on one occasion?: Never Total Score: 0 Score Reviewed/Action Taken: Yes OLI-7 AMB Questionnaire OLI-7 Date OLI - 7 assessed: 03/27/24 Feeling nervous, anxious, or on edge: 1 = Several days Not being able to stop or control worryin = Several days Worrying too much about different things: 1 = Several days Trouble relaxin = Several days Being so restless that it is hard to sit still: 1 = Several days Becoming easily annoyed or irritable: 1 = Several days Feeling afraid as if something awful might happen: 0 = Not at all Total OLI-7 score (0-4 normal; 5-9 mild; 10-14 moderate; 15-21 severe): 6 Source: Developed by Drs. Gatito Agustin, Catina Hunter, Adrien Liao and colleagues, with an educational kori from [employer]. OLI-7 Assessment Billing OLI-7 Assessment Tool: OLI-7 Assessment 84211 Review of Systems Const Denies chills and Denies fever(s) ENT Denies epistaxis and Denies nasal discharge Card Denies chest pain Resp Denies chest congestion, Denies cough and Denies hemoptysis GI Denies diarrhea and Denies nausea Skin/Breast Denies rash Neuro Reports no additional complaints Psych Reports no additional complaints Endo Reports no additional complaints Physical exam (Primary Care) Vital Signs: Last Vital Signs Pulse 72 03/27/24 13:54 BP 112/70 03/27/24 13:54 Pulse Ox 98 03/27/24 13:54 Oxygen Delivery Method Room Air 03/27/24 13:54 BMI result Body Mass Index 30.2 Tobacco/Smoking Status: Tobacco use Status Tobacco use date assessed 03/27/24 03/27/24 13:58 Patient Tobacco Use Status Never used Tobacco 03/27/24 13:55 e-Cigarette/Vaping Use Never Used 03/27/24 13:55 PHQ-9: PHQ-9 Score PHQ-9: Total score 9 03/27/24 14:37 Depression Screening Interpretation: Negative Thrive Assessment: Date of Thrive Assessment Date Thrive assessed 03/27/24 03/27/24 14:00 Currently or been in a relationship where the following occur: No concerns reported Const General: cooperative, comfortable and no acute distress Orientation/consciousness: patient oriented x3 HENMT Head: Yes normocephalic Eyes General: appearance normal, both eyes and all related structures Neck Neck: Yes supple Resp Effort & Inspection: normal respiratory effort, no cough and no stridor Cardio Rhythm: regular rhythm Heart sounds: S1 normal heart sound present and S2 normal heart sound present Skin General skin exam: turgor normal Neuro General: patient oriented x3, tone normal and moves all extremities Extrem Right lower extremity: no edema Left lower extremity: no edema Assessment and Plan Assessment & Plan (1) Lumbar radiculopathy: Code(s): M54.16 - Radiculopathy, lumbar region (2) Chronic pain syndrome: Code(s): G89.4 - Chronic pain syndrome (3) Pre-diabetes: Code(s): R73.03 - Prediabetes (4) Fibromyalgia: Code(s): M79.7 - Fibromyalgia (5) Fatigue: Code(s): R53.83 - Other fatigue Qualifiers: Fatigue type: chronic, unspecified Qualified Code(s): R53.82 - Chronic fatigue, unspecified (6) Urine incontinence: Code(s): R32 - Unspecified urinary incontinence Qualifiers: Urinary Incontinence type: mixed stress and urge incontinence Qualified Code(s): N39.46 - Mixed incontinence (7) GERD (gastroesophageal reflux disease): Code(s): K21.9 - Gastro-esophageal reflux disease without esophagitis Qualifiers: Esophagitis presence: without esophagitis Qualified Code(s): K21.9 - Gastro-esophageal reflux disease without esophagitis (8) Anxiety, generalized: Code(s): F41.1 - Generalized anxiety disorder (9) Perimenopausal symptoms: Code(s): N95.1 - Menopausal and female climacteric states (10) Weight gain: Code(s): R63.5 - Abnormal weight gain (11) Hot flashes: Code(s): R23.2 - Flushing (12) Depression, major, recurrent: Code(s): F33.9 - Major depressive disorder, recurrent, unspecified Qualifiers: Active/Remission status: in partial remission Qualified Code(s): F33.41 - Major depressive disorder, recurrent, in partial remission Plan Patient is a 58-year-old female came in today to talk about few medical problems Patient continued to have hot flashes which is causing difficulty sleeping at night and making her anxious and depressed She had hysterectomy few years back Follicle stimulating hormone is in menopausal range She is concerned about her weight but going back and looking it her weight history I see that in 2020 she was also just about same weight She is also prediabetic, last hemoglobin A1c was 5.6 checked this year She has urine incontinence and is requesting wipes clean herself Prescribing vaginal estrogen to see if that helps. Her weight is 30.3 patient is obese She does not want to try injectables due to side effects, I have sent phentermine 15 mg she is to start taking 1 every day Side effect of medication reviewed with the patient She also a chronic lower back pain radiating to left leg and sometimes right leg She is requesting a cortisone injection, [facility] referral placed She is to return in 4 weeks for re-evaluation after starting phentermine. 45 min spent in care of this patient Orders: Referrals Pain Management Referral M54.16 - Radiculopathy, lumbar region Medications: New conjugated estrogens off 5 days; repeat cycle 0.625 mg vaginal DAILY 30 grams 0RF phentermine must administer 2 hours after breakfast 15 mg PO DAILY 30 caps 0RF Refilled [Adult Sanitary Wipes] As directed 4 multiple units 3RF Urine incontinence R32 - Unspecified urinary incontinence Discontinued naproxen Discontinued Reason: Doctor's Order 500 mg PO BID 30 days PRN 60 tabs 0RF pain lorazepam Discontinued Reason: Doctor's Order 0.5 mg PO DAILY 90 days PRN 60 tabs 0RF anxiety prednisone Discontinued Reason: Doctor's Order 20 mg PO DAILY 5 days 5 tabs 0RF celecoxib (Celebrex) Take it with food and full glass of water Discontinued Reason: Doctor's Order 200 mg PO BID PRN 60 caps 0RF pain M47.816 - Spondylosis without myelopathy or radiculopathy, lumbar region, M51.36 - Other intervertebral disc degeneration, lumbar region, M54.16 - Radiculopathy, lumbar region Coding Level of Care Code Est Pt Level 5 (75858) Complex EM visit Add On G2211 Diagnoses Lumbar radiculopathy M54.16 Chronic pain syndrome G89.4 Pre-diabetes R73.03 Fibromyalgia M79.7 Chronic fatigue R53.82 Fatigue type: chronic, unspecified Mixed stress and urge urinary incontinence N39.46 Urinary Incontinence type: mixed stress and urge incontinence Gastroesophageal reflux disease without esophagitis K21.9 Esophagitis presence: without esophagitis Anxiety, generalized F41.1 Perimenopausal symptoms N95.1 Weight gain R63.5 Hot flashes R23.2 Recurrent major depressive disorder, in partial remission F33.41 Active/Remission status: in partial remission Additional Codes OLI-7 Assessment Billing - OLI-7 Assessment Tool: OLI-7 Assessment [id number] ([id number])
== END 2024-03-27 14:56 | disposition home or self-care (01) ==
PROVIDERS: PCP Internal Medicine; Visit Provider Internal Medicine
DX: R73.03 Prediabetes (principal); F33.41 Major depressive disorder, recurrent, in partial remission; M54.16 Radiculopathy, lumbar region; G89.4 Chronic pain syndrome; M79.7 Fibromyalgia; R53.82 Chronic fatigue, unspecified; N39.46 Mixed incontinence; K21.9 Gastro-esophageal reflux disease without esophagitis; F41.1 Generalized anxiety disorder; N95.1 Menopausal and female climacteric states; R63.5 Abnormal weight gain; R23.2 Flushing
CPT/HCPCS: 99215; G2211

== ENCOUNTER → 2024-05-07 13:30 | Outpatient (BNV) | payer OTHER, SELFPAY | PROVIDERS: PCP Internal Medicine; Visit Provider Radiology Diagnostic Radiology | DX: R92.1 Mammographic calcification found on diagnostic imaging of breast (principal) | CPT/HCPCS: 77066; G0279 ==

== ENCOUNTER 2024-05-07 13:36 | Outpatient (REF) | payer OTHER, SELFPAY ==
--- NOTE | ~2024-05-07 | MM_ITS ---
EXAMINATION: MM DIAGNOSTIC DIGITAL BREAST TOMOSYNTHESIS, BILATERAL CLINICAL INFORMATION: Six-month follow-up left breast probably benign calcifications, upper outer quadrant, middle one third, followed since 03/06/2022. Due for yearly. COMPARISON: Mammography: 10/15/2023,, 04/12/2023, 10/08/2022, 06/18/2022, 03/06/2022, 02/28/2022, and 02/27/2021. TECHNIQUE: Digital breast tomosynthesis is performed in both the craniocaudal and mediolateral oblique views along with computer-aided detection (CAD). Synthesized 2D images are generated from the tomosynthesis. In addition to standard views, added full field left CC nipple in profile view was obtained, as well as 2-D spot magnification left CC and ML views. FINDINGS: There are scattered areas of fibroglandular density (ACR BI-RADS breast composition Category b). Loosely grouped predominantly punctate calcifications in the upper-outer quadrant left breast, middle one third, have again remained completely stable without aggressive changes, have been stable over 2 years, and are benign. No further follow-up recommended. Otherwise, no suspicious masses, new suspicious grouped calcifications, or areas of architectural distortion are present in either breast. Stable circumscribed densities bilaterally are unchanged from multiple prior exams, several with small fatty notches suggesting benign intramammary lymph nodes. No skin or axillary abnormality. The parenchymal pattern is unchanged from prior exams. MM/MM tomosynthesis diagnostic BI IMPRESSION: 1. No findings in either breast suspicious suspicious for malignancy. 2. Calcifications in the upper outer left breast are stable over 2 years and benign. No further follow-up recommended. 3. Stable benign findings in both breasts. Recommend the patient resume annual screening mammography. ASSESSMENT: BI-RADS BI-RADS 2 - Benign Findings RECOMMENDATION: 1 year F/U Results were provided to the patient at time of visit by the technologist. This patient's information was entered into a reminder system with a target due date for their next mammogram. Electronically signed by: Tim Morris MD 05/07/2024 02:51 PM EDT
== END 2024-05-07 13:37 | disposition home or self-care (01) ==
LOC: HO.MAMMO 13:36
PROVIDERS: PCP Internal Medicine; Visit Provider Internal Medicine
DX: R92.1 Mammographic calcification found on diagnostic imaging of breast (principal)
CPT/HCPCS: 77062; 77066

== ENCOUNTER 2024-05-12 11:37 | Outpatient (AMB) | payer OTHER, SELFPAY ==
--- NOTE | 2024-05-12 11:39 | MHC.PC.OV ---
Vital Signs 05/12/24 11:42 Height 5 ft 4 in Weight 179 lb BMI 30.7 BP 118/78 Blood Pressure Location Lt brachial Position Sitting Pulse 62 Pulse Source Pulse Oximeter Pulse Oximetry (%) 98 Oxygen Delivery Method Room Air Intake Visit Reasons: 1 month follow up Allergies cat dander [cats] Allergy (Intermediate, Verified 05/12/24 11:42) Itchy Eyes and burning cigarette smoke Allergy (Intermediate, Verified 05/12/24 11:42) migraines latex Allergy (Intermediate, Verified 05/12/24 11:42) Rash trazodone Allergy (Intermediate, Verified 05/12/24 11:42) palpitations Penicillins Adverse Reaction (Intermediate, Verified 05/12/24 11:42) Abdominal Pain tamsulosin Allergy (Severe, Uncoded 05/12/24 11:42) Dizziness Medication List - Last Reconciled 05/12/24 by Gaudencio Ballard MD [Adult Sanitary Wipes As directed] albuterol sulfate 2.5 mg (3 mL) inhalation QID PRN cholecalciferol (vitamin D3) 25 mcg PO DAILY 90 days gabapentin 300 mg PO BEDTIME 90 days magnesium 250 mg PO BID naloxone 4 mg/actuation (Narcan) 4 mg intranasal Q2M PRN nebulizers with supplies and all needed equipment, to use for updraft treatments phentermine 15 mg PO DAILY [Poise incontinence pads Requires poise due to allergies. NS] pyridoxine (vitamin B6) 100 mg PO DAILY tramadol 50 mg PO BID PRN 15 days turmeric mg PO [Updraft machine tubing As directed] valacyclovir 2,000 mg (2 x 1 gram) PO BID 1 day venlafaxine ER 150 mg PO BEDTIME 90 days Tobacco use date assessed: 03/27/24 Dental Screening Dental Screen Date: 03/27/24 HPI 1 month follow up HPI Details Follow-up appointment for weight Patient did not get phentermine script fill as her insurance did not cover it She would like to have repeated labs done Patient is prediabetic after eating she started having slight tremors as if her sugar is low Also feel tired after eating Lab order placed, patient is fasting today [facility] Medical History Muscle spasm Microscopic hematuria Hot flashes Vitamin D deficiency Fibromyalgia Osteoarthritis Chronic GERD Depression, major, recurrent Surgical History History of esophagogastroduodenoscopy (EGD) H/O colonoscopy History of hysterectomy History of surgery Family History Father No problems noted. Mother Asthma Dementia Alzheimer's disease Paternal Aunt Lung cancer Breast cancer, Onset Age: 62 Brother No problems noted. Brother No problems noted. Brother No problems noted. Sister No problems noted. Sister No problems noted. Sister No problems noted. Paternal Aunt Breast cancer, Onset Age: 70 Other Mental health disorder Social History Household Members: Significant Other and Children Household Members Other:: 2 children Housing: House Are you a primary resident caregiver to a significant other at home: No Do you presently have visiting nurse or other home services: No Alcohol intake: never Patient Tobacco Use Status: Never used Tobacco e-Cigarette/Vaping Use: Never Used service: No Current occupational status: unemployed and disabled Cognitive needs: No Hearing needs: No Vision needs: Yes Female Reproductive History Menstrual Age of Menarche: 15 Questionnaire PHQ-9 Over the last 2 weeks, how often have you been bothered by any of the following problems? 2. Feeling down, depressed, or hopeless: not at all Source: Developed by Drs. Gatito Agustin, Catina Hunter, Adrien Liao and colleagues, with an educational kori from [employer]. Thrive Questionnaire Date Thrive assessed: 03/27/24 I am a: Patient What is your living situation today?: I have a steady place to live Within the past 12 months, did the food you bought not last and you didn't have the money to get more?: Never true Within the past 12 months, did you worry whether your food would run out before you got money to buy more?: Never true Do you have trouble paying for medicines?: No Do you have trouble getting transportation to medical appointments?: No Do you have trouble paying your heating and electricity bill?: Yes Do you have trouble taking care of your child, family member or friend?: No Do you have trouble with day-to-day activities such as bathing, preparing meals, shopping, managing finances, etc.?: Yes Are you currently unemployed and looking for a job?: Yes Are you interested in more education?: No Please select the resources that you would like help with: Utilities Currently or been in a relationship where the following occur: No concerns reported THRIVE Score: 1 OLI-7 AMB Questionnaire OLI-7 Date OLI - 7 assessed: 03/27/24 Source: Developed by Drs. Gatito Agustin, Catina Hunter, Adrien Lioa and colleagues, with an educational kori from [employer]. Review of Systems Const Denies chills and Denies fever(s) ENT Denies epistaxis and Denies nasal discharge Card Denies chest pain Resp Denies chest congestion, Denies cough and Denies hemoptysis GI Denies diarrhea and Denies nausea Skin/Breast Denies rash Neuro Reports no additional complaints Psych Reports no additional complaints Endo Reports no additional complaints Physical exam (Primary Care) Vital Signs: Last Vital Signs Pulse 62 05/12/24 11:42 BP 118/78 05/12/24 11:42 Pulse Ox 98 05/12/24 11:42 Oxygen Delivery Method Room Air 05/12/24 11:42 BMI result Body Mass Index 30.7 Tobacco/Smoking Status: Tobacco use Status Tobacco use date assessed 03/27/24 05/12/24 11:40 Patient Tobacco Use Status Never used Tobacco 05/12/24 11:40 e-Cigarette/Vaping Use Never Used 05/12/24 11:40 Thrive Assessment: Date of Thrive Assessment Date Thrive assessed 03/27/24 05/12/24 11:40 Currently or been in a relationship where the following occur: No concerns reported Const General: cooperative, comfortable and no acute distress Orientation/consciousness: patient oriented x3 HENAK Head: Yes normocephalic Eyes General: appearance normal, both eyes and all related structures Neck Neck: Yes supple Resp Effort & Inspection: normal respiratory effort, no cough and no stridor Cardio Rhythm: regular rhythm Skin General skin exam: turgor normal Neuro General: patient oriented x3, tone normal and moves all extremities Extrem Right lower extremity: no edema Left lower extremity: no edema Assessment and Plan Assessment & Plan (1) Fibromyalgia: Code(s): M79.7 - Fibromyalgia (2) Depression, major, recurrent: Code(s): F33.9 - Major depressive disorder, recurrent, unspecified Qualifiers: Active/Remission status: in partial remission Qualified Code(s): F33.41 - Major depressive disorder, recurrent, in partial remission (3) Lipid disorder: Code(s): E78.9 - Disorder of lipoprotein metabolism, unspecified (4) Polyarthralgia: Code(s): M25.50 - Pain in unspecified joint (5) Bladder disorder: Code(s): N32.9 - Bladder disorder, unspecified (6) GERD (gastroesophageal reflux disease): Code(s): K21.9 - Gastro-esophageal reflux disease without esophagitis Qualifiers: Esophagitis presence: without esophagitis Qualified Code(s): K21.9 - Gastro-esophageal reflux disease without esophagitis (7) Asthma, moderate: Code(s): J45.909 - Unspecified asthma, uncomplicated Qualifiers: Asthma persistence: unspecified Asthma complication type: uncomplicated Qualified Code(s): J45.909 - Unspecified asthma, uncomplicated (8) Sacroiliitis: Code(s): M46.1 - Sacroiliitis, not elsewhere classified (9) Pre-diabetes: Code(s): R73.03 - Prediabetes Plan Follow-up appointment for weight , patient have history of urine incontinence due to bladder prolapse, depression, anxiety, fibromyalgia, obesity, polyarthritis, sacroiliitis, difficulty sleeping, hot flashes, GERD, asthma and chronic fatigue Patient did not get phentermine script fill as her insurance did not cover it She would like to have repeated labs done Patient is prediabetic after eating she started having slight tremors as if her sugar is low Also feel tired after eating Lab order placed, patient is fasting today Orders: Orders Lipid Panel Today E78.9 - Disorder of lipoprotein metabolism, unspecified, F33.41 - Major depressive disorder, recurrent, in partial remission, J45.909 - Unspecified asthma, uncomplicated, K21.9 - Gastro-esophageal reflux disease without esophagitis, M25.50 - Pain in unspecified joint, M46.1 - Sacroiliitis, not elsewhere classified, M79.7 - Fibromyalgia, N32.9 - Bladder disorder, unspecified, R73.03 - Prediabetes Vitamin B12 Today E78.9 - Disorder of lipoprotein metabolism, unspecified, F33.41 - Major depressive disorder, recurrent, in partial remission, J45.909 - Unspecified asthma, uncomplicated, K21.9 - Gastro-esophageal reflux disease without esophagitis, M25.50 - Pain in unspecified joint, M46.1 - Sacroiliitis, not elsewhere classified, M79.7 - Fibromyalgia, N32.9 - Bladder disorder, unspecified, R73.03 - Prediabetes TSH reflex Free T4 Today E78.9 - Disorder of lipoprotein metabolism, unspecified, F33.41 - Major depressive disorder, recurrent, in partial remission, J45.909 - Unspecified asthma, uncomplicated, K21.9 - Gastro-esophageal reflux disease without esophagitis, M25.50 - Pain in unspecified joint, M46.1 - Sacroiliitis, not elsewhere classified, M79.7 - Fibromyalgia, N32.9 - Bladder disorder, unspecified, R73.03 - Prediabetes Complete Blood Count Auto Diff Today E78.9 - Disorder of lipoprotein metabolism, unspecified, F33.41 - Major depressive disorder, recurrent, in partial remission, J45.909 - Unspecified asthma, uncomplicated, K21.9 - Gastro-esophageal reflux disease without esophagitis, M25.50 - Pain in unspecified joint, M46.1 - Sacroiliitis, not elsewhere classified, M79.7 - Fibromyalgia, N32.9 - Bladder disorder, unspecified, R73.03 - Prediabetes Comprehensive [place]. Panel Fast Today E78.9 - Disorder of lipoprotein metabolism, unspecified, F33.41 - Major depressive disorder, recurrent, in partial remission, J45.909 - Unspecified asthma, uncomplicated, K21.9 - Gastro-esophageal reflux disease without esophagitis, M25.50 - Pain in unspecified joint, M46.1 - Sacroiliitis, not elsewhere classified, M79.7 - Fibromyalgia, N32.9 - Bladder disorder, unspecified, R73.03 - Prediabetes Vitamin D 25-OH (D2 and D3) Today E78.9 - Disorder of lipoprotein metabolism, unspecified, F33.41 - Major depressive disorder, recurrent, in partial remission, J45.909 - Unspecified asthma, uncomplicated, K21.9 - Gastro-esophageal reflux disease without esophagitis, M25.50 - Pain in unspecified joint, M46.1 - Sacroiliitis, not elsewhere classified, M79.7 - Fibromyalgia, N32.9 - Bladder disorder, unspecified, R73.03 - Prediabetes Hemoglobin A1c Today E78.9 - Disorder of lipoprotein metabolism, unspecified, F33.41 - Major depressive disorder, recurrent, in partial remission, J45.909 - Unspecified asthma, uncomplicated, K21.9 - Gastro-esophageal reflux disease without esophagitis, M25.50 - Pain in unspecified joint, M46.1 - Sacroiliitis, not elsewhere classified, M79.7 - Fibromyalgia, N32.9 - Bladder disorder, unspecified, R73.03 - Prediabetes Medications: Discontinued phentermine must administer 2 hours after breakfast Discontinued Reason: Doctor's Order 15 mg PO DAILY 30 caps 0RF Coding Level of Care Code Est Pt Level 3 (87786) Diagnoses Fibromyalgia M79.7 Recurrent major depressive disorder, in partial remission F33.41 Active/Remission status: in partial remission Lipid disorder E78.9 Polyarthralgia M25.50 Bladder disorder N32.9 Gastroesophageal reflux disease without esophagitis K21.9 Esophagitis presence: without esophagitis Moderate asthma without complication, unspecified whether persistent J45.909 Asthma persistence: unspecified Asthma complication type: uncomplicated Sacroiliitis M46.1 Pre-diabetes R73.03
[2024-05-12 11:42] VITALS: BP 118/78; PULSE 62; O2SAT 98; BMI 30.7
== END 2024-05-12 15:30 | disposition home or self-care (01) ==
PROVIDERS: PCP Internal Medicine; Visit Provider Internal Medicine
DX: M79.7 Fibromyalgia (principal); F33.41 Major depressive disorder, recurrent, in partial remission; M46.1 Sacroiliitis, not elsewhere classified; E78.9 Disorder of lipoprotein metabolism, unspecified; M25.50 Pain in unspecified joint; N32.9 Bladder disorder, unspecified; K21.9 Gastro-esophageal reflux disease without esophagitis; J45.909 Unspecified asthma, uncomplicated; R73.03 Prediabetes

== ENCOUNTER → 2024-05-12 11:37 | Outpatient (BNVA) | payer OTHER, SELFPAY | PROVIDERS: PCP Internal Medicine; Visit Provider Internal Medicine ==

== ENCOUNTER 2024-05-12 11:59 | Outpatient (REF) | payer OTHER, SELFPAY ==
[2024-05-12 13:12] LABS: Appearance Urine Clear; Color Urine Yellow; Glucose Urine UA Negative (Negative); Leukocyte Esterase Urine Negative (Negative); Nitrite Urine Negative (Negative); PH 6.5 (5.0-9.0); UMIC TRIGGER UACC YES; Urine Blood Trace (Negative); Urine Ketones Negative (Negative); Urine Protein Negative (Neg-Trace)
[2024-05-12 13:14] LABS: MANUAL DIFF FLAG NO
[2024-05-12 13:15] LABS: Bacteria Urine Trace (None Seen); Hyaline Casts Urine 0-2 /LPF (0-2); Squamous Epithelial Cell Urine 0-2 /HPF (0-2); WBC Urine 0-5 /HPF (0-5)
[2024-05-12 13:29] LABS: Basophils Absolute Auto 0.1 X10*3/uL (0.0-0.2); Basophils Percent Auto 1.5 % (0-2); Eosinophils Absolute Auto 0.2 X10*3/uL (0.0-0.4); Eosinophils Percent Auto 2.8 % (0-4); Hematocrit 43.5 % (37.0-47.0); Hemoglobin 14.2 g/dl (12.0-16.0); Imm Gran Abs Auto 0.02 X10*3/uL (0.00-0.03); Imm Gran Pct Auto 0.3 % (0.0-0.4); Lymphocytes Absolute Auto 2.5 X10*3/uL (1.2-4.9); Lymphocytes Percent Auto 37.2 % (20-40); Mean Corpuscular HGB Conc 32.6 g/dl (31.0-35.0); Mean Corpuscular Hemoglobin 30.2 pg (27.0-33.0); Mean Corpuscular Volume 92.6 fL (80.0-98.0); Mean Platelet Volume 10.6 fL (9.4-12.3); Monocytes Absolute Auto 0.7 X10*3/uL (0.1-1.2); Monocytes Percent Auto 9.8 % (2-11); Neutrophils Absolute Auto 3.3 x10*3/uL (2.0-8.3); Neutrophils Percent Auto 48.4 % (45-73); Platelet Count 393 X10*3/uL (160-400); Red Cell Distribution Width 12.6 % (11.0-16.0); White Blood Count 6.8 X10*3/uL (4.8-10.8)
[2024-05-12 13:55] LABS: Alanine Aminotransferase 21 U/L (0-31); Albumin Level 4.1 g/dL (3.5-5.0); Alkaline Phosphatase 116 U/L (39-117); Anion Gap 10 (12-20); Aspartate Amino Transferase 22 U/L (5-31); Bilirubin Total 0.4 mg/dL (0.0-1.0); Blood Urea Nitrogen 12 mg/dL (9-16); Calcium 9.5 mg/dL (8.4-10.2); Carbon Dioxide 27 mmol/L (22-29); Chloride 107 mmol/L (96-108); Cholesterol 237 mg/dL (<200); Estimated Glomerular Filt Rate > 60; Glucose Fasting 93 mg/dL (60-99); HDL Cholesterol 75 mg/dL (>40); LDL Cholesterol Calculated 140 mg/dL (<100); Potassium 3.9 mmol/L (3.3-5.1); Sodium 140 mmol/L (135-145); Total Protein 7.6 g/dL (6.5-8.0); Triglycerides 114 mg/dL (<150)
[2024-05-12 14:13] LABS: TSH reflex Free T4 1.44 uIU/mL (0.32-4.0)
[2024-05-12 14:27] LABS: Vitamin B12 576 pg/mL (200-900)
[2024-05-12 16:01] LABS: Estimated Average Glucose 111 mg/dL; Hemoglobin A1c % 5.5 % (<6.0)
[2024-05-16 15:43] LABS: Vitamin D 25-OH, D2 <4 ng/mL; Vitamin D 25-OH, D3 34 ng/mL; Vitamin D 25-OH, Total 34 ng/mL (30-100)
== END 2024-05-12 12:00 | disposition home or self-care (01) ==
LOC: HO.HMGCLDS 11:59
PROVIDERS: PCP Internal Medicine; Visit Provider Internal Medicine
DX: R73.03 Prediabetes (principal); R32 Unspecified urinary incontinence; F41.1 Generalized anxiety disorder; R23.3 Spontaneous ecchymoses; R63.4 Abnormal weight loss; R31.9 Hematuria, unspecified; F33.9 Major depressive disorder, recurrent, unspecified; M79.7 Fibromyalgia; E55.9 Vitamin D deficiency, unspecified; R23.2 Flushing; E78.9 Disorder of lipoprotein metabolism, unspecified; R00.2 Palpitations; M46.1 Sacroiliitis, not elsewhere classified; J45.909 Unspecified asthma, uncomplicated; K21.9 Gastro-esophageal reflux disease without esophagitis; N32.9 Bladder disorder, unspecified; M25.50 Pain in unspecified joint; F33.41 Major depressive disorder, recurrent, in partial remission; H53.8 Other visual disturbances; M76.61 Achilles tendinitis, right leg
CPT/HCPCS: 36415; 80053; 80061; 81001; 82306; 82607; 83036; 84443; 85025; 99212

== ENCOUNTER 2024-05-14 15:23 | Outpatient (AMB) | payer OTHER, SELFPAY ==
--- NOTE | 2024-05-14 15:33 | MHC.OFFVIS ---
Vital Signs 05/14/24 15:39 Height 5 ft 4 in Weight 181 lb 4 oz BMI 31.1 BP 134/74 Blood Pressure Location Lt brachial Position Sitting Pulse 81 Intake Visit Reasons: 6 month follow up visit, breast exam Intake Note: Patient is seen in office for 6 month follow up visit, breast exam. Patient c/o: left breast pain, feels has fluid in the breast would like to know if aspiration is recommended mm:05/07/24 Java Tech Required: No Educational Audiologist: Educational Audiologist Present Accompanied by: Family/Other Allergies cat dander [cats] Allergy (Intermediate, Verified 05/14/24 15:39) Itchy Eyes and burning cigarette smoke Allergy (Intermediate, Verified 05/14/24 15:39) migraines latex Allergy (Intermediate, Verified 05/14/24 15:39) Rash trazodone Allergy (Intermediate, Verified 05/14/24 15:39) palpitations Penicillins Adverse Reaction (Intermediate, Verified 05/14/24 15:39) Abdominal Pain tamsulosin Allergy (Severe, Uncoded 05/14/24 15:39) Dizziness Medication List - Last Reconciled 05/15/24 by Tr Lopez MD [Adult Sanitary Wipes As directed] albuterol sulfate 2.5 mg (3 mL) inhalation QID PRN cholecalciferol (vitamin D3) 25 mcg PO DAILY 90 days gabapentin 300 mg PO BEDTIME 90 days magnesium 250 mg PO BID naloxone 4 mg/actuation (Narcan) 4 mg intranasal Q2M PRN nebulizers with supplies and all needed equipment, to use for updraft treatments [Poise incontinence pads Requires poise due to allergies. NS] pyridoxine (vitamin B6) 100 mg PO DAILY tramadol 50 mg PO BID PRN 15 days turmeric mg PO [Updraft machine tubing As directed] valacyclovir 2,000 mg (2 x 1 gram) PO BID 1 day venlafaxine ER 150 mg PO BEDTIME 90 days HPI Comments Details: 59-year-old female patient returning for follow-up breast examination.. Mammogram of 04/12/2023 revealed loosely grouped predominantly punctate calcifications in the upper outer quadrant of the left breast middle 3rd. Repeat mammogram 10/15/2023 revealed no significant change in the left breast calcifications. This was felt to be low suspicion for malignancy (BI-RADS 3). Her most recent mammogram of 05/07/2024 revealed stable calcifications with no exchange engineer the last 2 years. There is no mammographic evidence of malignancy and routine follow-up is recommended (BI-RADS 2). Previous examination revealed fibrocystic change with no suspicious densities. She is with 1 miscarriage. Her family history is significant for 2 paternal aunts with breast cancer 1 who recently . Genetic testing performed on 11/07/2023 revealed no clinically significant mutations identified and no variance of uncertain significance identified. Her breast cancer risk score was calculated at 12.7 %, well below the 20% high risk threshold. She continues to report tenderness in the breast, left greater than right is concerned about there being a cyst. [facility] Medical History Muscle spasm Microscopic hematuria Hot flashes Vitamin D deficiency Fibromyalgia Osteoarthritis Chronic GERD Depression, major, recurrent Surgical History History of esophagogastroduodenoscopy (EGD) H/O colonoscopy History of hysterectomy History of surgery Family History Father No problems noted. Mother Asthma Dementia Alzheimer's disease Paternal Aunt Lung cancer Breast cancer, Onset Age: 62 Brother No problems noted. Brother No problems noted. Brother No problems noted. Sister No problems noted. Sister No problems noted. Sister No problems noted. Paternal Aunt Breast cancer, Onset Age: 70 Other Mental health disorder Social History Household Members: Significant Other and Children Household Members Other:: 2 children Housing: House Are you a primary hospice spiritual care coordinator to a significant other at home: No Do you presently have visiting nurse or other home services: No Alcohol intake: never Patient Tobacco Use Status: Never used Tobacco e-Cigarette/Vaping Use: Never Used service: No Current occupational status: unemployed and disabled Cognitive needs: No Hearing needs: No Vision needs: Yes Female Reproductive History Menstrual Age of Menarche: 15 Review of Systems Const All systems reviewed & are unremarkable except as noted in HPI and below Physical Exam Vital Signs: Last Vital Signs Pulse 81 05/14/24 15:39 BP 134/74 05/14/24 15:39 BMI result Body Mass Index 31.1 Const General: cooperative and no acute distress Nutritional Appearance: well nourished Orientation/consciousness: patient oriented x3 Limitations: no limitations HEENT Head: Yes normocephalic and Yes atraumatic Ears: hearing grossly normal bilaterally Chest Other: Right breast with diffuse tenderness and mild fibrocystic change but no skin change, nipple discharge, palpable mass or enlarged lymph nodes. Left breast with diffuse tenderness and mild fibrocystic change especially in the upper outer quadrant but no discrete mass, skin change, nipple discharge, or enlarged lymph nodes. Resp Effort & Inspection: normal respiratory effort, no audible wheezes, no cough and no respiratory distress Cardio Jugular venous distension: no JVD GI Inspection: Yes normal to inspection Skin Other: Warm, dry, no rash Neuro General: patient oriented x3 Extrem General: Yes no clubbing, cyanosis or edema Assessment & Plan Assessment & Plan (1) Abnormal mammogram of left breast: Code(s): R92.8 - Other abnormal and inconclusive findings on diagnostic imaging of breast Category: Medical Plan 59-year-old female patient returning for follow-up breast examination. Her most recent mammogram revealed stable calcifications in the left breast not changed in over 2 years. Examination today revealed diffuse tenderness however no suspicious findings were noted in either breast. No palpable cystic lesions were appreciated as well. I recommended follow-up 1 year following her next mammogram. We discussed the possibility of using low-dose tamoxifen if the breast pain seems to worsen. She is welcome to call sooner for any new concerns. Coding Level of Care Code Est Pt Level 3 (18446) Diagnoses Abnormal mammogram of left breast R92.8
[2024-05-14 15:39] VITALS: BP 134/74; PULSE 81; BMI 31.1
== END 2024-05-14 15:53 | disposition home or self-care (01) ==
PROVIDERS: PCP Internal Medicine; Visit Provider Surgery
DX: R92.8 Other abnormal and inconclusive findings on diagnostic imaging of breast (principal)
CPT/HCPCS: 99213

== ENCOUNTER → 2024-05-14 15:23 | Outpatient (BNVA) | payer OTHER, SELFPAY | PROVIDERS: PCP Internal Medicine; Visit Provider Surgery | DX: R92.8 Other abnormal and inconclusive findings on diagnostic imaging of breast (principal) | CPT/HCPCS: 99212 ==

== ENCOUNTER 2024-05-28 08:23 | Outpatient (AMB) | payer OTHER, SELFPAY ==
--- NOTE | 2024-05-28 08:23 | MHC.PC.OV ---
Intake Visit Reasons: lab results Allergies cat dander [cats] Allergy (Intermediate, Verified 05/28/24 08:25) Itchy Eyes and burning cigarette smoke Allergy (Intermediate, Verified 05/28/24 08:25) migraines latex Allergy (Intermediate, Verified 05/28/24 08:25) Rash trazodone Allergy (Intermediate, Verified 05/28/24 08:25) palpitations Penicillins Adverse Reaction (Intermediate, Verified 05/28/24 08:25) Abdominal Pain tamsulosin Allergy (Severe, Uncoded 05/14/24 15:39) Dizziness Medication List - Last Reconciled 05/28/24 by Gaudencio Ballard MD [Adult Sanitary Wipes As directed] albuterol sulfate 2.5 mg (3 mL) inhalation QID PRN cholecalciferol (vitamin D3) 25 mcg PO DAILY 90 days gabapentin 300 mg PO BEDTIME 90 days magnesium 250 mg PO BID naloxone 4 mg/actuation (Narcan) 4 mg intranasal Q2M PRN nebulizers with supplies and all needed equipment, to use for updraft treatments [Poise incontinence pads Requires poise due to allergies. NS] pyridoxine (vitamin B6) 100 mg PO DAILY tramadol 50 mg PO BID PRN 15 days turmeric mg PO [Updraft machine tubing As directed] valacyclovir 2,000 mg (2 x 1 gram) PO BID 1 day venlafaxine ER 150 mg PO BEDTIME 90 days Tobacco use date assessed: 05/28/24 Dental Screening Dental Screen Date: 03/27/24 Did you have a dental visit in the last 12 months?: Yes Did you have a dental problem in the last 6 months where you did not have access to dental care?: No Was dental information given to patient?: Patient has dentist HPI lab results HPI Details Patient is 59 year old female want to go over her labs which are with in normal limit her LDL is light elevated and urine shows trace blood which is chronic she has already seen Urologist for that and work up has been negative patient was reassured she has developed lesion on her lip which is tender to touch and is white , 2 in number she does have Hx of cold sores but patient feels it dont look like cold sores we tried to open camera but her phone didnt supported the [employer] fariba she will come into office tomorrow for evaluation [facility] Medical History Muscle spasm Microscopic hematuria Hot flashes Vitamin D deficiency Fibromyalgia Osteoarthritis Chronic GERD Depression, major, recurrent Surgical History History of esophagogastroduodenoscopy (EGD) H/O colonoscopy History of hysterectomy History of surgery Family History Father No problems noted. Mother Asthma Dementia Alzheimer's disease Paternal Aunt Lung cancer Breast cancer, Onset Age: 62 Brother No problems noted. Brother No problems noted. Brother No problems noted. Sister No problems noted. Sister No problems noted. Sister No problems noted. Paternal Aunt Breast cancer, Onset Age: 70 Other Mental health disorder Social History Household Members: Significant Other and Children Household Members Other:: 2 children Housing: House Are you a primary caretaker grounds to a significant other at home: No Do you presently have visiting nurse or other home services: No Alcohol intake: never Patient Tobacco Use Status: Never used Tobacco e-Cigarette/Vaping Use: Never Used service: No Current occupational status: unemployed and disabled Cognitive needs: No Hearing needs: No Vision needs: Yes Female Reproductive History Menstrual Age of Menarche: 15 Questionnaire Thrive Questionnaire Date Thrive assessed: 03/27/24 AUDIT C Alcohol Use Questionnaire (AUDIT-C) 1. How often do you have a drink containing alcohol?: Never 3. How often do you have six or more drinks on one occasion?: Never Total Score: 0 Score Reviewed/Action Taken: Yes OLI-7 AMB Questionnaire OLI-7 Date OLI - 7 assessed: 03/27/24 Source: Developed by Drs. Gatito Agustin, Catina Hunter, Adrien Liao and colleagues, with an educational kori from [employer]. Review of Systems Const Denies chills and Denies fever(s) ENT Denies epistaxis and Denies nasal discharge Resp Denies chest congestion, Denies cough and Denies hemoptysis GI Denies diarrhea and Denies nausea Neuro Reports no additional complaints Psych Reports no additional complaints Endo Reports no additional complaints Physical exam (Primary Care) Tobacco/Smoking Status: Tobacco use Status Tobacco use date assessed 05/28/24 05/28/24 08:26 Patient Tobacco Use Status Never used Tobacco 05/28/24 08:24 e-Cigarette/Vaping Use Never Used 05/28/24 08:24 Thrive Assessment: Date of Thrive Assessment Date Thrive assessed 03/27/24 05/28/24 08:24 Telehealth Telehealth Telehealth Platform: [email or web address] Location of provider rendering services: practice address Location of patient: address on file Patient Identification confirmed using: Name, : Yes Telehealth method: voice only Patient verbally consented to treatment: Yes Patient verbally consented to billing insurance company: Yes Patient informed of any privacy concerns related to visit: Yes Minutes spent on Phone/Video with Pt.: 13 Coding Level of Care Code Tele Est Pt Level 3 (96916) Diagnoses Lesion of lip K13.0 Assessment & Plan Assessment & Plan (1) Lesion of lip: Code(s): K13.0 - Diseases of lips Category: Medical Plan Patient is 59 year old female want to go over her labs which are with in normal limit her LDL is light elevated and urine shows trace blood which is chronic she has already seen Urologist for that and work up has been negative patient was reassured she has developed lesion on her lip which is tender to touch and is white , 2 in number she does have Hx of cold sores but patient feels it dont look like cold sores we tried to open camera but her phone didnt supported the [employer] fariba she will come into office tomorrow for evaluation
== END 2024-05-28 09:50 | disposition home or self-care (01) ==
LOC: HO.HMCC 08:23
PROVIDERS: PCP Internal Medicine; Visit Provider Internal Medicine
DX: K13.0 Diseases of lips (principal)

== ENCOUNTER → 2024-05-28 08:23 | Outpatient (BNVA) | payer OTHER, SELFPAY | PROVIDERS: PCP Internal Medicine; Visit Provider Internal Medicine ==

== ENCOUNTER 2024-05-29 12:51 | Outpatient (AMB) | payer OTHER, SELFPAY ==
[2024-05-29 12:55] VITALS: BP 102/70; PULSE 74; O2SAT 98; BMI 30.9
--- NOTE | 2024-05-29 12:55 | A.OFFPC_ITS ---
Vital Signs 3 05/29/24 12:55 Height 5 ft 4 in Weight 180 lb BMI 30.9 BP 102/70 Blood Pressure Location Rt brachial Position Sitting Pulse 74 Pulse Source Pulse Oximeter Pulse Oximetry (%) 98 Oxygen Delivery Method Room Air Intake Visit Reasons: Lip Lesion~ Allergies cat dander [cats] Allergy (Intermediate, Verified 05/29/24 12:56) Itchy Eyes and burning cigarette smoke Allergy (Intermediate, Verified 05/29/24 12:56) migraines latex Allergy (Intermediate, Verified 05/29/24 12:56) Rash trazodone Allergy (Intermediate, Verified 05/29/24 12:56) palpitations Penicillins Adverse Reaction (Intermediate, Verified 05/29/24 12:56) Abdominal Pain tamsulosin Allergy (Severe, Uncoded 05/29/24 12:56) Dizziness Medication List - Last Reconciled 05/29/24 by Gaudencio Ballard MD [Adult Sanitary Wipes As directed] albuterol sulfate 2.5 mg (3 mL) inhalation QID PRN cholecalciferol (vitamin D3) 25 mcg PO DAILY 90 days gabapentin 300 mg PO BEDTIME 90 days magnesium 250 mg PO BID nebulizers with supplies and all needed equipment, to use for updraft treatments [Poise incontinence pads Requires poise due to allergies. NS] pyridoxine (vitamin B6) 100 mg PO DAILY tramadol 50 mg PO BID PRN 15 days turmeric mg PO [Updraft machine tubing As directed] valacyclovir 2,000 mg (2 x 1 gram) PO BID 1 day venlafaxine ER 150 mg PO BEDTIME 90 days Tobacco use date assessed: 05/28/24 Dental Screening Dental Screen Date: 05/29/24 Did you have a dental visit in the last 12 months?: Yes Did you have a dental problem in the last 6 months where you did not have access to dental care?: No Was dental information given to patient?: Patient has dentist HPI Lip Lesion~ 2 HPI0 Details Patient is a 59-year-old female who has developed a lesion on her lower lip left corner for the past 3 days She came in today for evaluation as usually the cold sore appear red and is above the lip On examination it looks like a herpes labialis lesion Patient was instructed to take the valacyclovir which I have sen [facility] Medical History Muscle spasm Microscopic hematuria Hot flashes Vitamin D deficiency Fibromyalgia Osteoarthritis Chronic GERD Depression, major, recurrent Surgical History History of esophagogastroduodenoscopy (EGD) H/O colonoscopy History of hysterectomy History of surgery Family History Father No problems noted. Mother Asthma Dementia Alzheimer's disease Paternal Aunt Lung cancer Breast cancer, Onset Age: 62 Brother No problems noted. Brother No problems noted. Brother No problems noted. Sister No problems noted. Sister No problems noted. Sister No problems noted. Paternal Aunt Breast cancer, Onset Age: 70 Other Mental health disorder Social History Household Members: Significant Other and Children Household Members Other:: 2 children Housing: House Are you a primary primary health care nurse to a significant other at home: No Do you presently have visiting nurse or other home services: No Alcohol intake: never Patient Tobacco Use Status: Never used Tobacco e-Cigarette/Vaping Use: Never Used service: No Current occupational status: unemployed and disabled Cognitive needs: No Hearing needs: No Vision needs: Yes Female Reproductive History Menstrual Age of Menarche: 15 Questionnaire Thrive Questionnaire Date Thrive assessed: 03/27/24 I am a: Patient What is your living situation today?: I have a steady place to live Within the past 12 months, did the food you bought not last and you didn't have the money to get more?: Never true Within the past 12 months, did you worry whether your food would run out before you got money to buy more?: Never true Do you have trouble paying for medicines?: No Do you have trouble getting transportation to medical appointments?: No Do you have trouble paying your heating and electricity bill?: Yes Do you have trouble taking care of your child, family member or friend?: No Do you have trouble with day-to-day activities such as bathing, preparing meals, shopping, managing finances, etc.?: Yes Are you currently unemployed and looking for a job?: Yes Are you interested in more education?: No Please select the resources that you would like help with: Utilities Currently or been in a relationship where the following occur: No concerns reported THRIVE Score: 1 OLI-7 AMB Questionnaire OLI-7 Date LOI - 7 assessed: 03/27/24 Source: Developed by Drs. Gatito Agustin, Catina Hunter, Adrien Liao and colleagues, with an educational kori from [employer]. Review of Systems Const All systems reviewed & are unremarkable except as noted in HPI and below Physical exam (Primary Care) Vital Signs: Last Vital Signs Pulse 74 05/29/24 12:55 BP 102/70 05/29/24 12:55 Pulse Ox 98 05/29/24 12:55 Oxygen Delivery Method Room Air 05/29/24 12:55 BMI result Body Mass Index 30.9 Tobacco/Smoking Status: Tobacco use Status Tobacco use date assessed 05/28/24 05/29/24 13:00 Patient Tobacco Use Status Never used Tobacco 05/29/24 13:00 e-Cigarette/Vaping Use Never Used 05/29/24 13:00 Thrive Assessment: Date of Thrive Assessment Date Thrive assessed 03/27/24 05/29/24 13:00 Currently or been in a relationship where the following occur: No concerns reported Const General: no acute distress Orientation/consciousness: patient oriented x3 [facility] Head images: 2 1. Single herpes labialis sore Eyes General: appearance normal, both eyes and all related structures Resp Effort & Inspection: normal respiratory effort and able to speak in complete sentences Auscultation: clear to auscultation bilaterally Neuro General: patient oriented x3 Psych Mental Status: mental status grossly normal Coding Level of Care Code Est Pt Level 3 (96286) Diagnoses Herpes labialis B00.1 Assessment & Plan Assessment & Plan (1) Herpes labialis: Code(s): B00.1 - Herpesviral vesicular dermatitis Category: Medical Plan Patient is a 59-year-old female who has developed a lesion on her lower lip left corner for the past 3 days She came in today for evaluation as usually the cold sore appear red and is above the lip On examination it looks like a herpes labialis lesion Patient was instructed to take the valacyclovir which I have sent for her Medications: Refilled 2 valacyclovir 2,000 mg (2 x 1 gram) PO BID 1 day 4 tabs 0RF
== END 2024-05-29 13:42 | disposition home or self-care (01) ==
PROVIDERS: PCP Internal Medicine; Visit Provider Internal Medicine
DX: B00.1 Herpesviral vesicular dermatitis (principal)

== ENCOUNTER → 2024-05-29 12:51 | Outpatient (BNVA) | payer OTHER, SELFPAY | PROVIDERS: PCP Internal Medicine; Visit Provider Internal Medicine | DX: B00.1 Herpesviral vesicular dermatitis (principal) | CPT/HCPCS: 99212 ==

== ENCOUNTER 2024-06-08 13:17 | Outpatient (AMB) | payer OTHER, SELFPAY ==
--- NOTE | 2024-06-08 13:19 | MHC.OFFVIS ---
Vital Signs 06/08/24 13:20 Height 5 ft 4 in Weight 176 lb 5.917 oz BMI 30.3 BP 133/77 Blood Pressure Location Lt brachial Position Sitting Pulse 82 Intake Visit Reasons: 6 mnth follow up Intake Note: Janna presents in the office as a 6 moth follow up CC: She states that she is not feeling too bad. Stomach still feels bloated when she eats. When she tries to eat and drink at he same time she feels like it gets stuck in the top her stomach because of the hiatal hernia. So she has to eat and then wait to drink. Sometimes she has constipation but she started taking fiber and MCT oil. She also said when she eats she will get a sour tasting burp that comes up. Cullet Crusher Required: No Allergies cat dander [cats] Allergy (Intermediate, Verified 05/29/24 12:56) Itchy Eyes and burning cigarette smoke Allergy (Intermediate, Verified 05/29/24 12:56) migraines latex Allergy (Intermediate, Verified 05/29/24 12:56) Rash trazodone Allergy (Intermediate, Verified 05/29/24 12:56) palpitations Penicillins Adverse Reaction (Intermediate, Verified 05/29/24 12:56) Abdominal Pain tamsulosin Allergy (Severe, Uncoded 05/29/24 12:56) Dizziness HPI HPI 6 mnth follow up: Details: 59 yr old f called for f/u Initially seen [facility] [place] needed screening colonoscopy abdominal bloating GERD she had 6 surgeries due to bladder mesh and cystocele issues TTG was negative US 12/2021 hepatic steatosis left renal stones, calcifications , renal cyst neg H pylori test EGD/colonsocopy: 07/2022 Endoscopy Findings: sliding hiatal hernia esophagitis schatzki ring Colonoscopy Findings: internal hemorrhoids Path: A.? Stomach, biopsy:? Antral-type and oxyntic mucosa with moderate chronic active/erosive inflammation; no Helicobacter organisms seen. B.? EG junction, biopsy: - Cardiofundic-type mucosa with moderate chronic active inflammation and multilayered epithelium; no fully developed intestinal metaplasia seen. - Chronic active esophagitis (eosinophils and few neutrophils). C.? Esophagus, distal, biopsy:? Squamous epithelium within normal limits; no inflammation seen. CT- 08/09 kidney stones INTERIM: she has ongoing issues with bloating if she bends down she has the regurg and sour taste in the mouth she feels regurg and food coming up she is only taking carafate and not PPI she avoids lactose due to bloating EXAM: GENERAL: The patient is well developed and nontoxic. VITAL SIGNS:see workflow HEENT: Nonicteric sclerae, PERRLA, EOMI. Oropharynx clear. Moist mucous membranes. Conjunctivae appear well perfused. No thyroid mass. CHEST: Chest wall is nontender. HEART: Regular rate and rhythm without murmurs. LUNGS: Clear to auscultation bilaterally. ABDOMEN: Soft, positive bowel sounds, nontender, no organomegaly.no flank tenderness SKIN: No rash, no excessive bruising, petechiae, or purpura. NEUROLOGIC: Cranial nerves II-XII intact without motor/sensory deficit. Psych: normal affect A/P: 1/ GERD and regurg 2/ Lactulose intolerance PLAN:? 1/ Ba swallow with follow up with pill 2/ high dose PPI BID then titrated down after next apptm 3/ depending above might need EGD PFS Medical History Muscle spasm Microscopic hematuria Hot flashes Vitamin D deficiency Fibromyalgia Osteoarthritis Chronic GERD Depression, major, recurrent Surgical History History of esophagogastroduodenoscopy (EGD) H/O colonoscopy History of hysterectomy History of surgery Family History Father No problems noted. Mother Asthma Dementia Alzheimer's disease Paternal Aunt Lung cancer Breast cancer, Onset Age: 62 Brother No problems noted. Brother No problems noted. Brother No problems noted. Sister No problems noted. Sister No problems noted. Sister No problems noted. Paternal Aunt Breast cancer, Onset Age: 70 Other Mental health disorder Social History Household Members: Significant Other and Children Household Members Other:: 2 children Housing: House Are you a primary animal care specialist to a significant other at home: No Do you presently have visiting nurse or other home services: No Alcohol intake: never Patient Tobacco Use Status: Never used Tobacco e-Cigarette/Vaping Use: Never Used service: No Current occupational status: unemployed and disabled Cognitive needs: No Hearing needs: No Vision needs: Yes Female Reproductive History Menstrual Age of Menarche: 15 Physical Exam Vital Signs: Last Vital Signs Pulse 82 06/08/24 13:20 BP 133/77 06/08/24 13:20 BMI result Body Mass Index 30.3 Assessment & Plan Assessment & Plan (1) GERD (gastroesophageal reflux disease): Code(s): K21.9 - Gastro-esophageal reflux disease without esophagitis Category: Medical Qualifiers: Esophagitis presence: without esophagitis Qualified Code(s): K21.9 - Gastro-esophageal reflux disease without esophagitis Plan: see above (2) Hiatal hernia: Code(s): K44.9 - Diaphragmatic hernia without obstruction or gangrene Category: Medical Plan: see above Orders: Orders [place] upper GI series Today K21.9 - Gastro-esophageal reflux disease without esophagitis, K44.9 - Diaphragmatic hernia without obstruction or gangrene Medications: New pantoprazole 40 mg PO BID 90 tabs 1RF Coding Level of Care Code Est Pt Level 3 (90990) Diagnoses Gastroesophageal reflux disease without esophagitis K21.9 Esophagitis presence: without esophagitis Hiatal hernia K44.9
[2024-06-08 13:20] VITALS: BP 133/77; PULSE 82; BMI 30.3
== END 2024-06-08 14:26 | disposition home or self-care (01) ==
PROVIDERS: PCP Internal Medicine; Visit Provider Internal Medicine Gastroenterology
DX: K21.9 Gastro-esophageal reflux disease without esophagitis (principal); K44.9 Diaphragmatic hernia without obstruction or gangrene
CPT/HCPCS: 99213

== ENCOUNTER → 2024-06-08 13:17 | Outpatient (BNVA) | payer OTHER, SELFPAY | PROVIDERS: PCP Internal Medicine; Visit Provider Internal Medicine Gastroenterology | DX: K21.9 Gastro-esophageal reflux disease without esophagitis (principal); K44.9 Diaphragmatic hernia without obstruction or gangrene | CPT/HCPCS: 99212 ==

== ENCOUNTER 2024-07-10 09:24 | Outpatient (AMB) | payer OTHER, SELFPAY ==
[2024-07-10 09:36] VITALS: BP 130/68; PULSE 90; TEMP 36.7; O2SAT 98
--- NOTE | 2024-07-10 09:36 | MHC.OFFWIV ---
Intake Vital Signs 07/10/24 09:36 Height 5 ft 4 in BP 130/68 Blood Pressure Location Lt brachial Position Sitting Pulse 90 Pulse Source Pulse Oximeter Temp 98.1 F Temp Source Oral Pulse Oximetry (%) 98 Intake Visit Reasons: EP tight chest pain, running nose, headache Intake Note: pt is here for chest tightnessa and the back, sneezing, patients grandson and daughter has pnemonia Patient Tobacco Use Status: Never used Tobacco Allergies cat dander [cats] Allergy (Intermediate, Verified 07/10/24 09:37) Itchy Eyes and burning cigarette smoke Allergy (Intermediate, Verified 07/10/24 09:37) migraines latex Allergy (Intermediate, Verified 07/10/24 09:37) Rash trazodone Allergy (Intermediate, Verified 07/10/24 09:37) palpitations Penicillins Adverse Reaction (Intermediate, Verified 07/10/24 09:37) Abdominal Pain tamsulosin Allergy (Severe, Uncoded 05/29/24 12:56) Dizziness Do you need a note to return to daycare/school/sports/work: No HPI HPI Comments History of Present Illness Details History of Present Illness The patient is a 59-year-old female presenting with symptoms of ear pain, headache, throat pain, chest pain, dizziness, and respiratory symptoms. Symptoms started after being in contact with her grandson, who had pneumonia, and her father, who also got sick after arriving from [place]. The patient reports pain especially in the right ear, swelling, and redness with the presence of dizziness. There is pain in the throat, chest, and back, exacerbated by cough or sneeze. The patient has a history of asthma with recent nebulizer treatment, resulting in slight improvement, but reports persistent wheezing and shortness of breath. She has taken Tylenol and NyQuil and experienced fever with chills. The left ear was noted to potentially have an infection. The patient has not been tested for COVID at home. She is concerned about her symptoms due to past family history of fibromyalgia. Previous treatments included Doxycycline, but patient-management will include Augmentin per today's discussion. Physical Exam General: Cooperative, healthy appearing, comfortable and no acute distress Orientation/consciousness: Patient oriented x3 Limitations: No limitations Head: Normal to inspection Ears: Hearing grossly normal bilaterally, external ears normal and TM's normal on the right, left ear shows signs of infection with effusion and erythema Nose: Normal external nose present, Normal nares present and No nasal discharge present Face and sinus: Normal facial exam and Sinuses tender Mouth: Normal oral and palatal mucosa present and moist mucous membranes Throat: Yes tonsils normal, Yes uvula midline. Posterior oropharynx erythema and red Eyes: Appearance normal, both eyes and all related structures Neck: Normal visual inspection Respirtory: Clear to auscultation bilaterally. Normal respiratory effort, able to speak in complete sentences, Actively coughing, no respiratory distress, not tachypneic, no tripod positioning and no use of accessory muscles Cardiovascular: Regular rate and rhythm. Normal S1 and S2 Skin: No rashes or lesions noted Neuro: Patient oriented x3 Extremities: Normal to inspection and Yes no clubbing, cyanosis or edema Plan - Acute Otitis Media: Initiate antibiotic treatment with Augmentin to cover possible bacterial cause potentially involving pneumonia and sinusitis. Assess response to treatment and adjust if necessary. - Asthma: The patient reported not receiving the prescribed Albuterol inhaler. I will ensure the prescription for the inhaler is sent to the pharmacy. Continue nebulizer treatments as needed. - Differential diagnosis of Pneumonia: Order a chest x-ray to confirm or rule out pneumonia, given the past history of asthma and current symptoms. - Sinusitis: A decongestant may assist symptomatically; recommend the use of a nasal spray such as Flonase for sinus pain. - Further investigation pending: Perform testing for flu, COVID-19, and RSV. - Fibromyalgia: Chronic condition requiring management through primary care; monitor how current treatments affect overall symptom exacerbation. - I will follow up with the test results and determine the need for additional antibiotics such as a Z-pack, based on imaging and laboratory findings. [facility] Medical History Muscle spasm Microscopic hematuria Hot flashes Vitamin D deficiency Fibromyalgia Osteoarthritis Chronic GERD Depression, major, recurrent Surgical History History of esophagogastroduodenoscopy (EGD) H/O colonoscopy History of hysterectomy History of surgery Family History Father No problems noted. Mother Asthma Dementia Alzheimer's disease Paternal Aunt Lung cancer Breast cancer, Onset Age: 62 Brother No problems noted. Brother No problems noted. Brother No problems noted. Sister No problems noted. Sister No problems noted. Sister No problems noted. Paternal Aunt Breast cancer, Onset Age: 70 Other Mental health disorder Social History Household Members: Significant Other and Children Household Members Other:: 2 children Housing: House Are you a primary furnace caretaker to a significant other at home: No Do you presently have visiting nurse or other home services: No Alcohol intake: never Patient Tobacco Use Status: Never used Tobacco e-Cigarette/Vaping Use: Never Used service: No Current occupational status: unemployed and disabled Cognitive needs: No Hearing needs: No Vision needs: Yes Female Reproductive History Menstrual Age of Menarche: 15 Physical Exam Vital Signs: Last Vital Signs Temp 98.1 F 07/10/24 09:36 Pulse 90 07/10/24 09:36 BP 130/68 07/10/24 09:36 Pulse Ox 98 07/10/24 09:36 Assessment & Plan Assessment & Plan (1) URI (upper respiratory infection): Code(s): J06.9 - Acute upper respiratory infection, unspecified Qualifiers: URI type: unspecified URI Qualified Code(s): J06.9 - Acute upper respiratory infection, unspecified Plan: see above Orders: Orders XR chest 2V Today R05.9 - Cough, unspecified SARS-CoV2/FLU/RSV Today J06.9 - Acute upper respiratory infection, unspecified Medications: New amoxicillin-pot clavulanate 875-125 mg 1 tab PO Q12H 14 tabs 0RF albuterol sulfate 90 mcg/actuation 2 puffs inhalation Q6H PRN 8.5 grams 0RF shortness of breath or wheezing or cough Coding Level of Care Code Est Pt Level 4 (76902) Diagnoses Upper respiratory tract infection, unspecified type J06.9 URI type: unspecified URI
== END 2024-07-10 10:08 | disposition home or self-care (01) ==
PROVIDERS: PCP Internal Medicine; Visit Provider Physician Assistant
DX: J06.9 Acute upper respiratory infection, unspecified (principal)

== ENCOUNTER 2024-07-10 09:24 | Outpatient (REF) | payer OTHER, SELFPAY ==
--- NOTE | ~2024-07-10 | XR_ITS ---
EXAMINATION: XR CHEST CLINICAL INFORMATION: Cough. COMPARISON: Chest radiograph dated 08/20/2013. TECHNIQUE: 2 views of the chest were obtained. FINDINGS: The lungs are clear. The cardiomediastinal silhouette is normal in size. There is no pleural effusion or pneumothorax. No acute osseous abnormality. XR/XR chest 2V IMPRESSION: No acute cardiopulmonary findings. Electronically signed by: Wyatt Castillo MD 07/10/2024 12:05 PM [facility]
[2024-07-10 16:08] LABS: Influenza A PCR NEGATIVE (Negative); Influenza B PCR NEGATIVE (Negative); Resp Syncy Virus RNA Qual PCR NEGATIVE (Negative); SARS COV2 PCR INHOUSE POSITIVE (Negative)
== END 2024-07-10 09:25 | disposition home or self-care (01) ==
LOC: HO.HMGCX 09:24
PROVIDERS: PCP Internal Medicine; Visit Provider Physician Assistant
DX: R05.9 Cough, unspecified (principal); J06.9 Acute upper respiratory infection, unspecified; Z11.52 Encounter for screening for COVID-19
CPT/HCPCS: 0241U; 71046; 99212

== ENCOUNTER 2024-07-10 10:06 | Outpatient (REF) | payer OTHER, SELFPAY | END 2024-07-10 10:07 | disposition home or self-care (01) | LOC: HO.LAB 10:06 | PROVIDERS: Visit Provider Physician Assistant | DX: Z13.89 Encounter for screening for other disorder (principal) ==

== ENCOUNTER → 2024-08-21 12:25 | Outpatient (REF) | payer OTHER, SELFPAY ==
--- OUTSIDE RECORDS SUMMARY | 2024-08-21 13:55 | XMS_ITS ---
[facility] Address [address] [place] [address] Care Team Providers Care International Coordinator Name Role Phone Elio MATHIS, Gaudencio Primary Care Provider Keith Shaver [phone] Encounters Encounter Location Date [facility] [address] [address] 04/02/2023 Keith Jc Plan Of Treatment No Information Progress Notes * Lasha MALIKeDOB:[birth year] (59 yo F)Acc No.[id number]:04/02/2023 Progress Notes Patient:?KING Janna Provider:?Keith Jc DPM :1965???Age:57 Y???Sex:Female D ate:04/02/2023 Address:[address] [place], [place] [id number] Pcp:Gaudencio Ballard MD Subjective: * Chief Complaints: * ??? * HPI: ???Heel pain:?Nature:?sharp pain, throbbing, aching.?Location:?Proximal plantar aspect of Heel, B/L, LEFT > RIGHT, plantar, Arch.?Duration:?several years? for PF and? 3 months for right achilles tendon.?Onset/Cause:?unknown.?Course:?worse for AT.?Aggravated:?walking first thing in the morning/after rest.?Treatments:?corticosteriod injection, rest, ice, stretching, physical therapy, does not change conditon.?Severity/Quality:?considered 10 out of 10 for right achilles tendon and , considered 6 out of 10 asa PF.?Misc:?pt currently disabled due to other health issues .? * Medical History:? Objective: * Vitals:? Assessment: Plan: * Treatment: * Images: * The named appointment provid er may or may not be the originator of this progress note, and it is not deemed complete until electronically signed by the appointment provider. Sign off status: Pending * Provider:?Keith Jc DPM Date:? 023 Generated for Sofi ayoub/Keren/Rhea on:?08/21/2024 01:54 PM EST History and Physical Notes * HPI (History of Present Illness) Category Sub-Category Detail Notes Category Not es Heel pain Duration: several years fo r PF and 3 months for right achilles tendon Nature: sharp pain, throbbin g, aching Severity/Quality: considered 10 out of 10 for right achilles tendon and , considered 6 out of 10 asa PF Location: Proximal plantar asp ect of Heel, B/L, LEFT > RIGHT, plantar, Arch Onset/Cause: unknown Aggravated: walking first thing in the morning/after rest Course: worse for AT Treatments: corticosteriod injec tion, rest, ice, stretching, physical therapy, does not change conditon Misc: pt currently disable d due to other health issues
--- OUTSIDE RECORDS SUMMARY | 2024-08-21 13:55 | XMS_ITS | Patient Health Record ---
Author Organization [facility] Address [address] [place] [address] Care Team Providers Care Art Psychotherapist Name Role Phone Elio MATHIS, [facility] Primary Care Provider Keith Shaver Unavailable [phone] Allergies Allergen (clinical drug ingredient) Drug/Non Drug Allergy documented on EMR Reaction Allergy Type Onset Date Status trazodone Trazodone HCl heart palpitations Drug Allergy Active Latex Latex rash Allergy Active Reason For Referral No Information Medications Medication SIG (Take, Route, Fr equency, Duration) Notes Start Date End Date Status Gabapentin 300 MG 1 capsule Orally Onc e a day for 30 day(s) Active Prilosec Active Physical Therapy . . . 2-3x/week for 3-4 weeks Active Social History Tobacco Use: Social History Observation Description Date Details (start date - stop date) Never Smoker NA - NA Tobacco Use/Smoking Question Answer Notes Are you a: nonsmoker Additional Findings: Tobacco Non-User Current no n-smoker Alcohol Screen Question Answer Notes Did you have a drink containing alcohol in the p ast year? No Points 0 Interpretation Negative Tobacco use other than smoking: Question Answer Notes Are you an other tobacco user? No Problems Problem Type SNOMED Code ICD Code Onset Dates Problem Status W/U Status Risk Notes Problem Acquired hallux valgus (85306531) Hallux valgus (acquired), left foot (M20.12) Active confirmed Problem Acquired hallux valgus (68011827) Hallux valgus (acquired), right foot (M20.11) Active confirmed Plan Of Treatment No Information Insurance Providers Payer Name Payer Address Payer Phone Subscriber Number Group Number Insured Name Patient Relationship to Insured Coverage Start Date Coverage End Date [facility] [employer] Claims [address] [place] [phone] [id number] Janna Hooper Self - patient is the insured Medical (General) History Medical History History ICD Code Anxiety Arthritis asthma Back,Hip,and Knee pain Fibromyalgia Reflux ( GERD) Chicken pox Surgical History Surgery Date(Month/Year) bladder suspension 2009, 2010, 2011 hysterectomy 2012, 2014, 2018 Hospitalization History Reason Date(Month/Year) [facility] MRI bilateral ankles 07/21/20
--- OUTSIDE RECORDS SUMMARY | 2024-08-21 13:55 | XMS_ITS ---
Author Organization [facility] Address [address] [place] [address] Care Team Providers Care Senior Qa Tester Name Role Phone Elio MATHIS, [facility] Primary Care Provider Keith Shaver Unavailable [phone] Allergies Allergen (clinical drug ingredient) Drug/Non Drug Allergy documented on EMR Reaction Allergy Type Onset Date Status trazodone Trazodone HCl heart palpitations Drug Allergy Active Latex Latex rash Allergy Active REASON FOR VISIT Last Visit PCP 02/01/23 Medications Medication SIG (Take, Route, Fr equency, [...] Are you an other tobacco user? No Vital Signs Height 5ft in 04/16/2023 Weight 166 lbs 04/16/2023 BMI 32.42 kg/m2 04/16/2023 Encounters Encounter Location Date Provider Diagnosis [facility] [address] [place] [id number] 04/16/2023 Keith Jc Plantar fascial fibromatosis M72.2 ; Hallux valgus (acquired), left foot M20.12 ; Hallux valgus (acquired), right foot M20.11 ; Pain in left foot M79.672 ; Pain in right foot M79.671 and Achilles tendinitis, right leg M76.61 Assessments Encounter Date Diagnosis (ICD Code) Assessment Notes Treatment Notes Treatment Clinical Notes Section Notes 04/16/2023 Plantar fascial fibromatosis (ICD-10 - M72.2) 04/16/2023 Hallux valgus (acquired), left foot (ICD-10 - M20.12) 04/16/2023 Hallux valgus (acquired), right foot (ICD-10 - M20.11) 04/16/2023 Pain in left foot (ICD-10 - M79.672) 04/16/2023 Pain in right foot (ICD-10 - M79.671) 04/16/2023 Achilles tendinitis, right leg (ICD-10 - M76.61) Plan Of Treatment Medication Medication Name Sig Start Date Stop Date Notes Physical Therapy . . . 2-3x/week for 3-4 weeks Next Appt Details Follow Up: prn, Reason: Progress Notes * Danyel MALIKOB:[birth year] (57 yo F)Acc No.[id number]:04/16/2023 Progress Notes Patient:?Janna Malik Provider:?Keith Jc DPM :1965???Age:57 Y???Sex:Female D ate:04/16/2023 Address:[address] [place], [place] [id number] Pcp:Gaudencio Ballard MD Subjective: * Chief Complaints: * ???Last Visit PCP 02/01/23 * HPI: ???Heel pain:?Nature:?sharp pain, throbbing, aching.?Location:?Proximal plantar aspect of Heel, B/L, and worst pain is right achilles tendon.?Duration:?several years? for PF and? 3 months for right achilles tendon.?Onset/Cause:?unknown.?Course:?improved for arch pain and unchanged for right AT.?Aggrevated:?walking first thing in the morning/after rest.?Treatments:??rest, ice, stretching, physical therapy, does not change conditon.?Severity/Quality:?considered 10 out of 10 for right achilles tendon.?Misc:?pt currently disabled due to other health issues .? * ROS:?General/Constitutional:?Nausea?denies.?Vomiting?denies.?Hunger Thirst?denies.?Loss appetite?denies.?Chills?denies.?Fatigue?denies.?Fever?denies.?Night Sweats?denies.?Unexplained weight loss?denies.?Unexplained weight gain?denies.?HEENTM:?Dentures?denies.?Dizziness?denies.?Glasses/contacts?admits.?Retinopathy?de nies.?Blurred/double vision?denies.?TMJ?denies.?Discharge/drainage?denies.?Implants?denies.?Sore throat?denies.?Dental implants?denies.?Hard of hearing ?denies.?Difficulty chewing/swallowing/speaking?denies.?Nose bleeds?denies.?Sore mouth?denies.?Respiratory:?On Oxygen?denies.?Pneumonia/pleurisy?denies.?Bronchitis?denies.?Emphysema?denies.?C oughing?denies.?Cough blood?denies.?Shortness of breath?denies.?Wheezing?denies.?Cardiovascular:?Pacemaker?denies.?MVP?denies.?WPW?denies.?CHF?denies.?Heart attack?denies.?Septal defect?denies.?Rapid beat?denies.?Chest pain ?denies.?Atrial Fib.?denies.?Murmur/Palpitations?denies.?Gastrointestinal:?Hemorrhoids?denies.?Stomach/Abdominal pain?denies.?Dark blood stool?denies.?Irritable bowel ?denies.?Constipation?denies.?Diarrhea?denies.?Hematology:?Swelling?denies.?Clots?denies.?Varicose Veins?denies.?Bruising?denies.?Bleeding problem?denies.?Genitourinary:?Blood urine?denies.?Frequent/Painfu/urination/bladder control?denies.?Kidney stones?denies.?Infection (UTI)?denies.?Nephropathy?denies.?sex trans dis (STD)?denies.?Prostate?denies.?Musculoskeletal:?Hammertoes?denies.?Bunions?admits.?Back Pain?admits.?Muscle Cramps/ Resting?denies.?Muscle cramps / walking?denies.?Generalized aches and pains?denies.?Weakness?denies.?Integ.:?Keita?denies.?Scars?admits.?Corns/calluses?denies.?Ingrown nails?denies.?Painful nails?denies.?Open Sores?denies.?Rashes?denies.?Neurologic:?Difficulty sleeping?admits.?Brain disorder?denies.?Numbness?admits.?Balance trouble?denies.?Confusion?denies.?Fainting/blackouts?denies.?Tingling?admits.?Tr emors?denies.? * Medical History:? * Surgical History:?bladder lovell spension 2009, 2010, 2012hysterectomy 2012, 2015, 2019 * Hospitalization/Major Diagno stic Procedure:?[facility] MRI bilateral ankles 07/21/20 * Family History:?Mother: dece ased.?Father: alive.?Spouse: alive.?Siblings: diagnosed with Family history of arthritis.? * Social History:?Tobacco Use:?Tobacco Use/Smoking?Are you a:?nonsmoker ?Additional Findings: Tobacco Non-User?Current non-smoker ?Tobacco use other than smoking?Are you an other tobacco user??No ???Drugs/Alcohol:?Drugs?Have you used drugs other than those for medical reasons in the past 12 months??No ?Alcohol Screen?Did you have a drink containing alcohol in the past year??No ?Points?0 ?Interpretation?Negative ???Miscellaneous:?Caffeine: yes, frequency:, 1-2 cups per day. ?Children: yes, 6. ?Marital status: . ?Occupation: Disabled. * Medications:?TakingGabapenti n 300 MG Capsule 1 capsule Orally Once a dayPrilosec Physical Therapy . . . . 2-3x/weekMedication List reviewed and reconciled with the patientTaking Gabapentin 300 MG Capsule 1 capsule Orally Once a dayTaking Prilosec Taking Physical Therapy . . . . 2-3x/weekMedication List reviewed and reconciled with the patient * Allergies:?Trazodone HCl: he art palpitationsLatex: rashyes[Allergies Verified] Objective: * Vitals:?Ht:5ft, Wt:166, BMI: 32.42, Shoe size:7, Ht-cm: 152.4 cm, Wt-k.3 kg. * Examination: ???General Examination: ?GENERAL APPEARANCE:?pleasant, alert, well nourished, well developed, well hydrated, with good attention to hygene/body habitus, and in no acute distress.?ORIENTED:?person,place, and time.?Neurological: ?SENSORY:?Neurological exam reveals intact sensorium, pain sensation normal, vibration sensation intact, pinprick sensation is normal in the lower extremities, pt denies, anesthesia, burning, paresthesia, tingling, B/L.?TINEL'S COMPRESSION:?Negative tarsal tunnel, hadley pedis, and medial calcaneal nerves, B/L.?BABINSKI REFLEX:?Absent, B/L.?Vascular: ?DP PULSES:?2/4, B/L.?PT PULSES:?2/4, B/L.?CAPILLARY FILL TIME:?3 secs. per digit, B/L.?SKIN TEMPERTURE GRADIENT OF THE LOWER EXTERMITIES:?warm to cool, proximal to distal, B/L.?HAIR GROWTH/TEXTURE/ELASTICITY/TURGOR:?normal, B/L.?EDEMA:?no edema.?Dermatologic: ?SKIN FINDINGS:?Skin exam reveals normal texture, elasticity, and tugor. There are no masses. The interspaces are clear.?Heel Pain: ?INSPECTION REVEALS:?POP right achilles tendon and plantar asa heels.?Orthopedic: ?MUSCLE STRENGTH:?5/5 all groups in a symmetrical fashion B/L.?GAIT ABNORMALITY:?pronated, abducted, B/L.?BUNION:? Medially prominent 1st MPJ, B/L, Lateral tracking 1st MPJ incompletely reducable.? Assessment: * Assessment: 1.?Plantar fascial fibromato sis - M72.2 (Primary)?2.?Hallux valgus (acquired), left foot - M20.12?3.?Hallux valgus (acquired), right foot - M20.11?4.?Pain in left foot - M79.672?5.?Pain in right foot - M79.671?6.?Achilles tendinitis, right leg - M76.61? Plan: * Treatment: * Procedure Codes:? * Preventive Medicine:? ??Counseling:?Discussion:?-14: Office or other outpatient visit for the evaluation and management of an established patient, which required a medically appropriate history and/or examination and MODERATE level of DECISION MAKING for: 1 OR MORE CHRONIC PROBLEM(S) THATS WORSENING, 2 STABLE CHRONIC PROBLEMS, A NEWLY DIAGNOSED PROBLEM WITH UNCERTAIN PROGNOSIS, AN ACUTE COMPLICATED INJURY WITH MULTIPLE TREATMENT OPTIONS, OR AN ACUTE PROBLEM WITH ACCOMPANYING SYSTEMIC SYMPTOMS, THAT POSE(S) A MODERATE RISK OF MORBIDITY. THIS CONDITION MAY ALSO INCLUDE RX DRUG MANAGEMENT, OR A DECISON FOR MINOR SURGERY. The visit on the day of the encounter encompassed interpreting the data and educating the patient as to the nature of their condition, treatment options available according to their individual PMH, meds, allergies, and overall health/living conditions, as well as any potential risks or complications that may occur from a failure to adhere to, and participate in, the recommended course of therapy. The discussion included a complete verbal, and/or written explanation of the examination results, any x-rays taken, the proposed diagnosis, and outline of the treatment plan. A schedule for future care needs was also explained. The patient verbalized an understanding of the instructions at this time and agreed to be an active participant in their treatment. If the patient should think of any questions or concerns after the visit, I have encouraged the patient to call the office.? * Follow Up:?prn * Images: * Sign off status: Completed true * Provider:?Keith Jc DPM Date:? 023 Generated for Sofi ayoub/Keren/Rhea on:?08/21/2024 01:54 PM EST History and Physical Notes * HPI (History of Present Illness) Category Sub-Category Detail Notes Category Not es Heel pain Duration: several years fo r PF and 3 months for right achilles tendon Nature: sharp pain, throbbin g, aching Severity/Quality: considered 10 out of 10 for right achilles tendon Location: Proximal plantar asp ect of Heel, B/L, and worst pain is right achilles tendon Onset/Cause: unknown Aggravated: walking first thing in the morning/after rest Course: improved for arch pa in and unchanged for right AT Treatments: rest, ice, stretchin g, physical therapy, does not change conditon Misc: pt currently disable d due to other health issues Examination Category Sub-Category Detail Notes Category Not es Heel Pain INSPECTION REVEALS: POP right ac hilles tendon and plantar asa heels Neurological SENSORY: Neurological exa m reveals intact sensorium, pain sensation normal, vibration sensation intact, pinprick sensation is normal in the lower extremities, pt denies, anesthesia, burning, paresthesia, tingling, B/L BABINSKI REFLEX: Absent, B/L TINEL'S COMPRESSION: Negative tarsal judith nash, hadley pedis, and medial calcaneal nerves, B/L Dermatologic SKIN FINDINGS: Skin exam reveal s normal texture, elasticity, and tugor. There are no masses. The interspaces are clear Orthopedic GAIT ABNORMALITY: pronated, abducted, B/L BUNION: Medially prominent 1 st MPJ, B/L, Lateral tracking 1st MPJ incompletely reducable MUSCLE STRENGTH: 5/5 all groups in a symmetrical fashion B/L General Examination GENERAL APPEARANCE: pleasant , alert, well nourished, well developed, well hydrated, with good attention to hygene/body habitus, and in no acute distress ORIENTED: person,place, and ti me Vascular DP PULSES (B): 2/4, B/L PT PULSES (B): 2/4, B/L CAPILLARY FILL TIME: 3 secs. per digit, B/L TEMPERTURE GRADIENT (C): warm to cool, p roximal to distal, B/L TROPHIC CONDITION-TEXTURE/ELASTICITY/TURGOR/HAIR GROWTH (B): normal, B/L EDEMA (C): no edema
--- OUTSIDE RECORDS SUMMARY | 2024-08-21 13:55 | XMS_ITS ---
Author Organization [facility] Address [address] [place] [address] Care Team Providers Care Ict Security Specialist Name Role Phone Elio MATHIS, Asma Primary Care Provider Keith Shaver [phone] REASON FOR VISIT R/s 04/02/23 appt Encounters Encounter Location Date Provider [facility] [address] [facility] [address] [place] [phone] 04/01/2023 Keith Jc Plan Of Treatment No Information Progress Notes * Danyel MALIKOB:[birth year] (57 yo F)Acc No.[id number]:04/01/2023 Patient:?Janna Malik :1965???Age:57 Y???Sex:Female Address:[address] [place] [address], [phone] * true * Date:? Generated for Printi ng/Aleksandrag/eTransmitting on:?08/21/2024 01:55 PM EST
== END ==
LOC: HO.CARD 12:25
PROVIDERS: PCP Internal Medicine; Visit Provider Internal Medicine
DX: R00.2 Palpitations (principal)
CPT/HCPCS: 93242

== ENCOUNTER → 2024-08-21 12:27 | Outpatient (BNV) | payer OTHER, SELFPAY | PROVIDERS: PCP Internal Medicine; Visit Provider Internal Medicine | DX: R00.0 Tachycardia, unspecified (principal) | CPT/HCPCS: 93244 ==

== ENCOUNTER 2024-09-07 12:38 | Outpatient (AMB) | payer OTHER, SELFPAY ==
--- NOTE | 2024-09-07 12:40 | AM.OFFWIN_ITS ---
Intake Vital Signs 3 09/07/24 12:41 Weight 178 lb BP 110/72 Blood Pressure Location Rt brachial Position Sitting Pulse 77 Pulse Source Pulse Oximeter Pulse Oximetry (%) 97 Oxygen Delivery Method Room Air Intake Visit Reasons: EP Rash around mouth Intake Note: Patient here for rash around mouth that has been present for about 3 weeks. Patient Tobacco Use Status: Never used Tobacco Allergies cat dander [cats] Allergy (Intermediate, Verified 09/07/24 12:42) Itchy Eyes and burning cigarette smoke Allergy (Intermediate, Verified 09/07/24 12:42) migraines latex Allergy (Intermediate, Verified 09/07/24 12:42) Rash trazodone Allergy (Intermediate, Verified 09/07/24 12:42) palpitations Penicillins Adverse Reaction (Intermediate, Verified 09/07/24 12:42) Abdominal Pain tamsulosin Allergy (Severe, Uncoded 09/07/24 12:42) Dizziness Do you need a note to return to daycare/school/sports/work: No HPI HPI Comments 2 History of Present Illness0 Details 59 y/o female patient who presents to [facility] walk in clinic with c/o Recurrent rash around mouth boarders. She has an appointment with Derm (Dr. Holliday) in October but she does not want to wait. She was previously seen by [facility] back 2020 for similar concerns, and was diagnosed with Perioral dermatitis rash. She was given Doxy Oral with minimal relief. [facility] Medical History (Updated 09/07/24 @ 13:22 by Funmi Mccord NP) Perioral dermatitis Muscle spasm Microscopic hematuria Hot flashes Vitamin D deficiency Fibromyalgia Osteoarthritis Chronic GERD Depression, major, recurrent Surgical History History of esophagogastroduodenoscopy (EGD) H/O colonoscopy History of hysterectomy History of surgery Family History Father No problems noted. Mother Asthma Dementia Alzheimer's disease Paternal Aunt Lung cancer Breast cancer, Onset Age: 62 Brother No problems noted. Brother No problems noted. Brother No problems noted. Sister No problems noted. Sister No problems noted. Sister No problems noted. Paternal Aunt Breast cancer, Onset Age: 70 Other Mental health disorder Social History Household Members: Significant Other and Children Household Members Other:: 2 children Housing: House Are you a primary home care assistant to a significant other at home: No Do you presently have visiting nurse or other home services: No Alcohol intake: never Patient Tobacco Use Status: Never used Tobacco e-Cigarette/Vaping Use: Never Used service: No Current occupational status: unemployed and disabled Cognitive needs: No Hearing needs: No Vision needs: Yes Female Reproductive History Menstrual Age of Menarche: 15 Review of Systems Const All systems reviewed & are unremarkable except as noted in HPI and below Physical Exam Vital Signs: Last Vital Signs Pulse 77 09/07/24 12:41 BP 110/72 09/07/24 12:41 Pulse Ox 97 09/07/24 12:41 Oxygen Delivery Method Room Air 09/07/24 12:41 Const General: cooperative and no acute distress Nutritional Appearance: overweight Orientation/consciousness: patient oriented x3 HEENT Head: Yes normocephalic Ears: external ears normal Nose image: 2 1. Small clusters of 0.5 to 1 mm Dull erythema papules 2. Small clusters of 0.5 to 1 mm Dull erythema papules Face and sinus: Yes sinuses nontender Skin Rashes: rashes noted (Around the mouth boarders) Neuro General: patient oriented x3, gait normal and moves all extremities Psych Speech and movement: Normal speech and movement present Assessment & Plan Assessment & Plan (1) Perioral dermatitis: Code(s): L71.0 - Perioral dermatitis Plan: Ordered Erythromycin cream F/u with Dermatology as scheduled. Medications: New 2 erythromycin with ethanol 2 % 1 appl topical BID 30 grams 0RF L71.0 - Perioral dermatitis Coding Level of Care Code Est Pt Level 3 (88462) Diagnoses Perioral dermatitis L71.0 Time Spent (min) 15
[2024-09-07 12:41] VITALS: BP 110/72; PULSE 77; O2SAT 97
== END 2024-09-07 13:27 | disposition home or self-care (01) ==
PROVIDERS: PCP Internal Medicine; Visit Provider Nurse Practitioner Family
DX: L71.0 Perioral dermatitis (principal)

== ENCOUNTER 2024-09-07 14:16 | Outpatient (REF) | payer OTHER, SELFPAY ==
[2024-09-07 15:49] LABS: Appearance Urine Clear; Color Urine Yellow; Glucose Urine UA Negative (Negative); Leukocyte Esterase Urine Negative (Negative); Nitrite Urine Negative (Negative); PH 6.5 (5.0-9.0); Specific Gravity - Urine 1.025 (1.005-1.025); UMIC TRIGGER UACC YES; Urine Blood Small (1+) (Negative); Urine Ketones Negative (Negative); Urine Protein Negative (Neg-Trace)
[2024-09-07 16:21] LABS: Bacteria Urine None Seen (None Seen); Hyaline Casts Urine 0-2 /LPF (0-2); RBC Urine 0-2 /HPF (0-2); Squamous Epithelial Cell Urine 0-2 /HPF (0-2); WBC Urine 0-5 /HPF (0-5)
[2024-09-07 17:28] LABS: Vitamin B12 544 pg/mL (200-900)
[2024-09-07 17:31] LABS: Alanine Aminotransferase 23 U/L (0-31); Anion Gap 11 (12-20); Aspartate Amino Transferase 23 U/L (5-31); Bilirubin Total 0.3 mg/dL (0.0-1.0); Blood Urea Nitrogen 14 mg/dL (9-16); Calcium 9.5 mg/dL (8.4-10.2); Carbon Dioxide 24 mmol/L (22-29); Chloride 109 mmol/L (96-108); Cholesterol 229 mg/dL (<200); Estimated Glomerular Filt Rate > 60; Glucose Fasting 112 mg/dL (60-99); HDL Cholesterol 71 mg/dL (>40); LDL Cholesterol Calculated 132 mg/dL (<100); Sodium 140 mmol/L (135-145); Total Protein 7.7 g/dL (6.5-8.0); Triglycerides 134 mg/dL (<150)
[2024-09-07 17:50] LABS: Alkaline Phosphatase 106 U/L (39-117); TSH reflex Free T4 1.19 uIU/mL (0.32-4.0)
[2024-09-12 07:08] LABS: Vitamin D 25-OH, D2 <4 ng/mL; Vitamin D 25-OH, D3 49 ng/mL; Vitamin D 25-OH, Total 49 ng/mL (30-100)
== END 2024-09-07 14:17 | disposition home or self-care (01) ==
LOC: HO.HMGCLDS 14:16
PROVIDERS: PCP Internal Medicine; Visit Provider Internal Medicine Gastroenterology
DX: H53.8 Other visual disturbances (principal); M76.61 Achilles tendinitis, right leg; E78.9 Disorder of lipoprotein metabolism, unspecified; F33.9 Major depressive disorder, recurrent, unspecified; K21.9 Gastro-esophageal reflux disease without esophagitis; M79.7 Fibromyalgia; E55.9 Vitamin D deficiency, unspecified; R32 Unspecified urinary incontinence; F41.1 Generalized anxiety disorder; R63.4 Abnormal weight loss; R23.3 Spontaneous ecchymoses; R31.9 Hematuria, unspecified; R23.2 Flushing; R00.2 Palpitations; R73.03 Prediabetes; M46.1 Sacroiliitis, not elsewhere classified; J45.909 Unspecified asthma, uncomplicated; N32.9 Bladder disorder, unspecified; M25.50 Pain in unspecified joint; F33.41 Major depressive disorder, recurrent, in partial remission; L71.0 Perioral dermatitis
CPT/HCPCS: 36415; 80053; 80061; 81001; 82306; 82607; 84443; 99212

== ENCOUNTER 2024-09-17 08:12 | Outpatient (AMB) | payer OTHER, SELFPAY ==
--- NOTE | 2024-09-17 08:41 | A.OFFPC_ITS ---
Intake Visit Reasons: Discuss Results Allergies cat dander [cats] Allergy (Intermediate, Verified 09/17/24 08:41) Itchy Eyes and burning cigarette smoke Allergy (Intermediate, Verified 09/17/24 08:41) migraines latex Allergy (Intermediate, Verified 09/17/24 08:41) Rash trazodone Allergy (Intermediate, Verified 09/17/24 08:41) palpitations Penicillins Adverse Reaction (Intermediate, Verified 09/17/24 08:41) Abdominal Pain tamsulosin Allergy (Severe, Uncoded 09/07/24 12:42) Dizziness Medication List - Last Reconciled 09/17/24 by Gaudencio Ballard MD [Adult Sanitary Wipes As directed] albuterol sulfate 2.5 mg (3 mL) inhalation QID PRN albuterol sulfate 90 mcg/actuation 2 puffs inhalation Q6H PRN amitriptyline 10 mg PO BEDTIME gabapentin 300 mg PO BEDTIME 90 days lorazepam mg PO DAILY magnesium 250 mg PO BID nebulizers with supplies and all needed equipment, to use for updraft treatments pantoprazole 40 mg PO BID [Poise incontinence pads Requires poise due to allergies. NS] pyridoxine (vitamin B6) 100 mg PO DAILY tacrolimus 0.03% topical DAILY tramadol 50 mg PO BID PRN 15 days turmeric mg PO [Updraft machine tubing As directed] valacyclovir 2,000 mg (2 x 1 gram) PO BID 1 day venlafaxine ER 150 mg PO BEDTIME 90 days Tobacco use date assessed: 09/17/24 Dental Screening Dental Screen Date: 09/17/24 Did you have a dental visit in the last 12 months?: Yes Did you have a dental problem in the last 6 months where you did not have access to dental care?: No Was dental information given to patient?: Patient has dentist HPI Discuss Results HPI Details History - The patient is a 59-year-old female pr esenting with concerns related to cardiovascular tests. - Holter monitor recorded normal sinus r hythm correlating with instances of p alpitations she noted in her diary. - Reported episodes of fast heart rate n ot arising from any pathological source, needing no medical intervention based on current findings. - Pre-diabetic status marked by a fastin g blood sugar of 112 mg/dL, compared to a normal 93 mg/dL from a previous test, indicating a risk for diabetes without current diagnosis. - The patient experiences symptoms assoc iated with a hiatal hernia, involving irregular sensations during swallowing at the gastric level. Plans for an ultrasound evaluation are mentioned. by Dr Paz Problem List - Palpitations - Sinus rhythm noted mostly on recent Ho lter with rare PVCs - Pre-diabetes - Hiatal hernia Patient Instructions - Monitor and limit caffeine intake from sources such as soda, coffee, and tea to help manage palpitations. - Follow a healthy lifestyle, focusing o n diet and exercise, to control blood sugar and mitigate progression to diabetes. - Await results and instructions for a g lucose tolerance test. - Proceed with arrangements for the sche duled ultrasound for further evaluation of the hiatal hernia.. Review of Systems - Cardiovascular: Reports fast heart rat es during activity, correlated with palpitations. - Endocrine: Denies current symptoms of diabetes but notes elevated fasting glucose. - Gastrointestinal: Reports sensations r elated to a hiatal hernia. - General: No fever no chills - Neurological: No headaches no dizziness - Ear nose throat: No sore throat no hearing difficulty no ear pain - Genitourinary: No dysuria , no blood in urine PFSH Medical History Perioral dermatitis Muscle spasm Microscopic hematuria Hot flashes Vitamin D deficiency Fibromyalgia Osteoarthritis Chronic GERD Depression, major, recurrent Surgical History History of esophagogastroduodenoscopy (EGD) H/O colonoscopy History of hysterectomy History of surgery Family History Father No problems noted. Mother Asthma Dementia Alzheimer's disease Paternal Aunt Lung cancer Breast cancer, Onset Age: 62 Brother No problems noted. Brother No problems noted. Brother No problems noted. Sister No problems noted. Sister No problems noted. Sister No problems noted. Paternal Aunt Breast cancer, Onset Age: 70 Other Mental health disorder Social History Household Members: Significant Other and Children Household Members Other:: 2 children Housing: House Are you a primary health care consultant to a significant other at home: No Do you presently have visiting nurse or other home services: No Alcohol intake: never Patient Tobacco Use Status: Never used Tobacco e-Cigarette/Vaping Use: Never Used service: No Current occupational status: unemployed and disabled Cognitive needs: No Hearing needs: No Vision needs: Yes Female Reproductive History Menstrual Age of Menarche: 15 Questionnaire Thrive Questionnaire Date Thrive assessed: 03/27/24 AUDIT C Alcohol Use Questionnaire (AUDIT-C) 1. How often do you have a drink containing alcohol?: Never 3. How often do you have six or more drinks on one occasion?: Never Total Score: 0 Score Reviewed/Action Taken: Yes OLI-7 AMB Questionnaire OLI-7 Date OLI - 7 assessed: 03/27/24 Source: Developed by Drs. Gatito Agustin, Catina Hunter, Adrien Liao and colleagues, with an educational kori from [employer]. Physical exam (Primary Care) Tobacco/Smoking Status: Tobacco use Status Tobacco use date assessed 09/17/24 09/17/24 08:43 Patient Tobacco Use Status Never used Tobacco 09/17/24 08:41 e-Cigarette/Vaping Use Never Used 09/17/24 08:41 Thrive Assessment: Date of Thrive Assessment Date Thrive assessed 03/27/24 09/17/24 08:41 Telehealth Telehealth Telehealth Platform: [facility] Location of provider rendering services: practice address Location of patient: address on file Patient Identification confirmed using: Name, : Yes Telehealth method: video (attempted) Patient verbally consented to treatment: Yes Patient verbally consented to billing insurance company: Yes Patient informed of any privacy concerns related to visit: Yes Minutes spent on Phone/Video with Pt.: 16 Coding Level of Care Code Tele Est Pt Level 3 (86375) Diagnoses Pre-diabetes R73.03 PVC (premature ventricular contraction) I49.3 Heart palpitations R00.2 Hiatal hernia K44.9 Assessment & Plan Assessment & Plan (1) Pre-diabetes: Code(s): R73.03 - Prediabetes Category: Medical (2) PVC (premature ventricular contraction): Code(s): I49.3 - Ventricular premature depolarization Category: Medical (3) Heart palpitations: Code(s): R00.2 - Palpitations Category: Medical (4) Hiatal hernia: Code(s): K44.9 - Diaphragmatic hernia without obstruction or gangrene Category: Medical Plan History - The patient is a 59-year-old female presenting with concerns related to cardiovascular tests. - Holter monitor recorded normal sinus rhythm correlating with instances of palpitations she noted in her diary. - Reported episodes of fast heart rate not arising from any pathological source, needing no medical intervention based on current findings. - Pre-diabetic status marked by a fasting blood sugar of 112 mg/dL, compared to a normal 93 mg/dL from a previous test, indicating a risk for diabetes without current diagnosis. - The patient experiences symptoms associated with a hiatal hernia, involving irregular sensations during swallowing at the gastric level. Plans for an ultrasound evaluation are mentioned. by Dr Paz Problem List - Palpitations - Sinus rhythm noted mostly on recent Holter with rare PVCs - Pre-diabetes - Hiatal hernia Patient Instructions - Monitor and limit caffeine intake from sources such as soda, coffee, and tea to help manage palpitations. - Follow a healthy lifestyle, focusing on diet and exercise, to control blood sugar and mitigate progression to diabetes. - Await results and instructions for a glucose tolerance test. - Proceed with arrangements for the scheduled ultrasound for further evaluation of the hiatal hernia.. Orders: Orders Glucose Tolerance 2 Hour Today R73.03 - Prediabetes
--- OUTSIDE RECORDS SUMMARY | 2024-09-17 11:03 | XMS_ITS | Clinical Summary ---
Author Organization [facility] Address [address] [place] [address] Phone Care Team Providers Care Ehs Manager Name Role Phone Gaudencio Ballard MD Primary Care Provider [phone] Allergies Active Allergy Reactions Criticality Noted Date Comments Latex 12/17/2005 Other Reaction(s): Rash/Dermatitis Tramadol Headache 03/25/2014 Vomiting,nausea,shaking Medications Medication Sig Dispensed Refills Start Date End Date Status gabapentin (NEURONTIN) 100 mg capsule TAKE 1 CAPSULE BY MOUTH AT BEDTIME Active estradioL (VIVELLE-DOT) 0.1 mg/24 hr Active diclofenac (Voltaren Arthritis Pain) 1 % topical gel Place 1 g onto the skin daily. Active ibuprofen (ADVIL,MOTRIN) 600 mg tablet TAKE 1 TABLET BY MOUTH DAILY NEEDED FOR PAIN Active albuterol 2.5 mg /3 mL (0.083 %) nebulizer solution INHALE THE CONTENTS OF 1 VIAL VIA NEBULIZER EVERY 4 HOURS NEEDED FOR WHEEZING Active alpha lipoic acid 600 mg capsule Take 1 Cap by mouth daily. Active mupirocin (BACTROBAN) 2 % ointment Apply twice a day to nose x 1 week Active betamethasone, augmented, (DIPROLENE-AF) 0.05 % cream Apply small amount twice daily to affected area. Active fluticasone propionate (FLONASE) 50 mcg/actuation nasal spray SHAKE LIQUID AND USE 2 SPRAYS IN EACH NOSTRIL DAILY Active albuterol HFA (PROAIR HFA ; PROVENTIL HFA ; VENTOLIN HFA) 90 mcg/actuation inhaler Inhale 2 Puffs into the lungs every 4 hours as needed for Cough or Wheezing. Active omeprazole (PriLOSEC) [address] capsule Take 1 Cap by mouth 2 times daily (before meals). Active MULTIVITAMIN ORAL Take by mouth. Act ever Active Problems Problem Noted Date Diagnosed Date Fibromyalgia 05/29/2017 Overview (07/21/2024): Onset ~ 2013 Gabapentin and Lyrica caused headaches Cymbalta caused nausea Cystocele, unspecified 06/08/2016 Rectocele 06/08/2016 Backache 05/03/2014 Overview (07/21/2024): 04/01-mri Small annular tear L5-S1. Epidural lipomatosis L5-S1 and sacral canal. Bipolar 2 disorder 06/10/2013 PTSD (post-traumatic stress disorder) 06/10/2013 Depression 09/05/2011 Overview (07/21/2024): Zoloft and wellbutrin not tolerated Seeing therapist Calculus of kidney 11/20/2010 Asthma 06/24/2008 Abdominal pain, epigastric 01/20/2007 Overview (07/21/2024): 01/[address] cornejo negative 11/27- ct abd Bilateral nonobstructing renal calculi. Iron deficiency anemia 08/17/2005 Overview (07/21/2024): 08/26 42 hct Encounters Date Type Department Care Team Description 07/15/2024 Telephone [facility] [place] [address] Gaudencio Ballard MD 07/15/2024 Telephone [facility] [place] [address] Gaudencio Ballard MD 07/10/2024 Telephone [facility] [place] [address] Gaudencio Ballard MD Referral (Received routine paper referral - Nov. ab) from Last 3 Months Immunizations Name Administration Dates Next Due Pneumococcal conjugate 13 va lent (Prevnar 13, PCV13) 2mo and older 04/17/2016 Td Tetanus diptheria (Tdvax) 7yo and older 08/27 Td, Unspecified 08/27/2003 Tdap Tetanus diptheria acell ular pertussis (Boostrix; Adacel) 7yo and older 06/26/2012 Surgical History Surgery Date Site/Laterality Comments ESOPHAGOGASTRODUODENOSCOPY 01/21/07 PROCEDURE: PA ESOPHAGOGASTRODUODENOSCOPY TRANSORAL DIAGNOSTIC; COMMENT: Normal PARTIAL HYSTERECTOMY 03/2010 PROCEDURE: PA SUPRACERVICAL ABDL HYSTER W/WO RMVL TUBE OVARY; COMMENT: Da Dragan TLH with sacropexy, mesh urethral support OTHER SURGICAL HISTORY PROCEDURE: FEMALE SLING SYS W/WO MATRL OTHER SURGICAL HISTORY PROCEDURE: PA RMVL PROSTC MATRL/MESH ABDL WALL FOR INFECTION BREAST SURGERY 2011 Right PROCEDURE: PA UNLISTED PROCEDURE BREAST; COMMENT: rt cyst removed BREAST BIOPSY 2008 Right PROCEDURE: BX BREAST; PERC NEEDLE CORE W/IMAG GUID; COMMENT: cyst asp FINE NEEDLE ASPIRATION Left PROCEDURE: FINE NDLE ASPRTN W/IMAGING GUIDANCE; COMMENT: 4 YRS. AGO-CYST Medical History Medical History Date Comments Anemia, unspecified DX:Anemia, u nspecified Unspecified asthma(493.90) DX:Un specified asthma(493.90) Esophageal reflux DX:Esophageal reflux Shoulder pain DX:Shoulder pain ; COMMENT: [facility] Family History Medical History Relation Name Comments Hypertension Mother Blindness Neg Hx Breast cancer Neg Hx Cataracts Neg Hx Colon cancer Neg Hx Glaucoma Neg Hx Macular degeneration Neg Hx Ovarian cancer Neg Hx Strabismus Neg Hx Uterine cancer Neg Hx Relation Name Status Comments Brother Alive 3,healthy Father Alive gerd Mother Alive dementia Sister Alive 3,healthy Social History Tobacco Use Types Packs/Day Years Used Date Smoking Tobacco: Never Smokeless Tobacco: Never Alcohol Use Standard Drinks/Week Comments No 0 (1 standard drink = 0.6 oz pur e alcohol) Sex and Gender Information Value Date Recorded Sex Assigned at Not on file Gender Identity Not on file Sexual Orientation Not on file Obstetrics History Plan of Treatment Upcoming Encounters Date Type Department Care Team (Late st Contact Info) Description 09/29/2024 3:00 PM EST Office Visit [facility] Card[facility] [address] [facility] [address] [place] [phone] Tr Romo MD [address] [place] [address],[address] [place] [address] Health Maintenance Due Date Last Done Comments Hepatitis B Vaccines (1 of 3 - 19+ 3-dose series) 1986 Pneumococcal Vaccine: Pediatrics (0 to 5 Years) and At-Risk Patients (6 to 64 Years) (2 of 2 - PPSV23 or PCV20) 06/12/2016 04/17/2016 Zoster Vaccines (1 of 2) 2017 Breast Cancer Screening 09/16/2021 09/16/19 20, 09/12/2018, 09/11/2017 DTaP,Tdap,and Td Vaccines (4 - Td or Tdap) 06/26/2022 06/26/2012, 08/27/2003, 08/27/2003 Colorectal Cancer Screening: Colonoscopy 07/22/2022 Depression Screening 07/22/2022 HIV Screening 07/22/2022 Social Influencers of Health Screening 07/22/2022 COVID-19 Vaccine (2023-2 5 season) 2024 Influenza Vaccine (#1) 2024 Hepatitis C Screening Completed 06/21/2008 HIB Vaccines Aged Out No longer eligi ble based on patient's age to complete this topic HPV Vaccines Aged Out No longer eligi ble based on patient's age to complete this topic Hepatitis A Vaccines Aged Out No long er eligible based on patient's age to complete this topic IPV Vaccines Aged Out No longer eligi ble based on patient's age to complete this topic MMR Vaccines Aged Out No longer eligi ble based on patient's age to complete this topic Meningococcal ACWY Vaccine Aged Out N o longer eligible based on patient's age to complete this topic RSV Immunization Patients Under 20 months Aged Out No longer eligible b ased on patient's age to complete this topic Varicella Vaccines Aged Out No longer eligible based on patient's age to complete this topic Procedures Procedure Name Priority Date/Time Associated Diagnosis Comments SCR MAMMO BI INCL CAD Routine 09/16/2019 11:31 AM EST Encounter for screening mammogram for malignant neoplasm of breast HM HEPATITIS C SCREENING Routine 06/21/2008 from Last 3 Months or Most Recently Relevant to Health Maintenance Results * SCR MAMMO BI INCL CAD (09/16/2019 11:31 AM EST) Anatomical Region Laterality Modality Radiographic Alisa ging 09/12/2018 11:1 0 AM EST Narrative 09/16/2019 3:18 PM EST This is a summary report. The complete report is available in the patient's medical record. If you cannot access the medical record, please contact the sending organization for a detailed fax or copy. Full field digital screening mammography, reviewed with CAD and compared to previous. ??The breasts are composed of fatty and fibroglandular tissue. ??No suspicious mass, architectural distortion or suspicious calcifications are identified. IMPRESSION: : No mammographic evidence of malignancy. BIRADS 1-Negative; N. 5 year breast cancer risk assessment 0.8 % Lifetime breast cancer risk assessment 6.6 % Breast cancer risk category Low (<15%) Procedure Note Montejo Nataly - 08/07/2022 This is a summary report. The complete report is available in thepatient's medical record. If you cannot access the medical record, pleasecontact the sending organization for a detailed fax or copy. Full field digital screening mammography, reviewed with CAD and comparedto previous. The breasts are composed of fatty and fibroglandular tissue.No suspicious mass, architectural distortion or suspicious calcificationsare identified. IMPRESSION: : No mammographic evidence of malignancy. BIRADS 1-Negative; N. 5 year breast cancer risk assessment 0.8 % Lifetime breast cancer risk assessment 6.6 % Breast cancer risk category Low (<15%) Gaudencio Ballard MD IMG XR PROCEDURES * Hepatitis C Screening (06/21/2008) Hepatitis C Screening Abstracted Historical Provider MD MARU Singh from Last 3 Months or Most Recently Relevant to Health Maintenance Care Teams Ehs Manager Relationship Specialty Start Date End Date Gaudencio Ballard MD [address] [place] [address] PCP - General Internal Medicine 09/16/19
--- OUTSIDE RECORDS SUMMARY | 2024-09-17 11:03 | XMS_ITS | Encounter Summary ---
Author Organization [facility] Address [address] [place] [address] Care Team Providers Care Wire Frame Maker Name Role Phone Al Garcia MD Primary Care Provider Unavail able Padmini Baltazar DO Primary Care Pro vider Unavailable Melida Morales MD Primary Care Provider Unavaila ble Audrey Ramirez MD Primary Care Provider Un available Gaudencio Ballard MD Primary Care Provider Unavailabl e Encounter Details Date Type Department Care Team Description 12/12/2010 Chief Quality Officer Report Medical Records [address] [place] [id number] Elijah Pearson Social History Tobacco Use Types Packs/Day Years Used Date Smoking Tobacco: Never Alcohol Use Standard Drinks/Week Comments No 0 (1 standard drink = 0.6 oz pur e alcohol) Sex Assigned at Date Recorded Not on file documented as of this encounter Plan of Treatment Not on file documented as of this encounter Visit Diagnoses Not on filedocumented in this encounter Care Teams Wire Frame Maker Relationship Specialty Start Date End Date Al Garcia MD PCP - General 04/14/04 03/15/15 Padmini Baltazar DO PCP - General Internal Medicine 03/16/15 06/30/15 Melida Morales MD PCP - General Internal Medicine 07/01/15 01/19/16 Audrey Ramirez MD PCP - General Internal Medicine 01/20/16 Gaudencio Ballard MD PCP - General Internal Medicine 09/16/19 documented as of this encounter
--- OUTSIDE RECORDS SUMMARY | 2024-09-17 11:03 | XMS_ITS | Encounter Summary ---
Author Organization [facility] Address [address] [place] [address] Care Team Providers Care Sweatband Cutting Machine Operator Name Role Phone Al Garcia MD Primary Care Provider Unavail able Padmini Baltazar DO Primary Care Pro vider Unavailable Melida Morales MD Primary Care Provider Unavaila ble Audrey Ramirez MD Primary Care Provider Un available Gaudencio Ballard MD Primary Care Provider Unavailabl e Encounter Details Date Type Department Care Team Description 06/04/2011 Pharmacy Laboratory Technician Report Medical Records [address] [place] [address] Elijah Pearson Social History Tobacco Use Types [...] on filedocumented in this encounter Care Teams Sweatband Cutting Machine Operator Relationship Specialty Start Date End Date Al [...]
--- OUTSIDE RECORDS SUMMARY | 2024-09-17 11:03 | XMS_ITS | Encounter Summary ---
Author Organization [facility] Address [address] [place] [address] Care Team Providers Care Database Programmer Name Role Phone Al Garcia MD Primary Care Provider Unavail able Padmini Baltazar DO Primary Care Pro vider Unavailable Melida Morales MD Primary Care Provider Unavaila ble Audrey Ramirez MD Primary Care Provider Un available Gaudencio Ballard MD Primary Care Provider Unavailabl e Encounter Details Date Type Department Care Team Description 12/13/2010 Project Engineer Report Medical Records [address] [place] [address] Florentin Rabago MD Social History Tobacco Use Types Packs/Day Years Used Date Smoking Tobacco: Never Alcohol Use Standard Drinks/Week Comments No 0 (1 standard drink = 0.6 oz pur e alcohol) Sex Assigned at Date Recorded Not on file documented as of this encounter Plan of Treatment Not on file documented as of this encounter Visit Diagnoses Not on filedocumented in this encounter Care Teams Database Programmer Relationship Specialty Start Date End Date Al [...]
--- OUTSIDE RECORDS SUMMARY | 2024-09-17 11:03 | XMS_ITS | Encounter Summary ---
Author Organization [facility] Address [address] [place] [address] Care Team Providers Care Die Finisher Forging Name Role Phone Al Garcia MD Primary Care Provider Unavail able Padmini Baltazar DO Primary Care Pro vider Unavailable Melida Morales MD Primary Care Provider Unavaila ble Audrey Ramirez MD Primary Care Provider Un available Gaudencio Ballard MD Primary Care Provider Unavailabl e Encounter Details Date Type Department Care Team Description 09/16/2014 Life Insurance Agent Report Medical Records [address] [place] [id number] Noé Henderson i Social History Tobacco Use Types Packs/Day Years [...] on filedocumented in this encounter Care Teams Die Finisher Forging Relationship Specialty Start Date End Date Al [...]
--- OUTSIDE RECORDS SUMMARY | 2024-09-17 11:03 | XMS_ITS | Encounter Summary ---
Author Organization [facility] Address [address] [place] [address] Care Team Providers Care Purifying Plant Operator Name Role Phone Audrey Ramirez MD Primary Care Provider Un available Gaudencio Ballard MD Primary Care Provider Unavailabl e Reason for Visit * Reason Onset Date Comments refill request 11/07/2016 Encounter Details Date Type Department Care Team Description 11/07/2016 Refill Adult Medicine [address] [address] Audrey Ramirez MD refill request Social History Tobacco Use Types Packs/Day Years Used Date Smoking Tobacco: Never Smokeless Tobacco: Never Alcohol Use Standard Drinks/Week Comments No 0 (1 standard drink = 0.6 oz pur e alcohol) Sex Assigned at Date Recorded Not on file documented as of this encounter Miscellaneous Notes * Telephone Encounter - Brenda Mora - 11/07/2016 11:40 AM EDT Patient would like script to be: E-PRESCRIBED/FAXED TO PHARMACY WHEN WAS THE PATIENT'S LAST APPOINTMENT IN ADULT MEDICINE? 09/21/16 WHEN WAS THE LAST TIME THE PATIENT SAW THEIR PCP? 07/05/16 Does patient have an upcoming appointment? PT will need appt, script came from RX. (THE MEDICATION REQUESTED IS ON THE MED LIST ABOVE) All of the medications requested were on the CURRENT MEDS list Did you check the Pharmacy information above?: YES Patient wants: 30 -day supply Is this a mail order prescription request ? NO Patients current insurance carrier is: Payor: MEDICARE-[employer] / Plan[place] / Product Type: MEDICARE [id number] documented in this encounter Plan of Treatment Not on file documented as of this encounter Visit Diagnoses Not on filedocumented in this encounter Care Teams Purifying Plant Operator Relationship Specialty Start Date End Date Audrey Ramirez MD PCP - General Internal Medicine 01/20/16 Gaudencio Ballard MD PCP - General Internal Medicine 09/16/19 documented as of this encounter
--- OUTSIDE RECORDS SUMMARY | 2024-09-17 11:03 | XMS_ITS ---
Author Organization [facility] Address [address] [place] [address] Care Team Providers Care An Employee Sponsor Or Advocate And Name Role Phone Elio MATHIS, Asma Primary Care Provider Keith Shaver [phone] REASON FOR VISIT R/s 04/02/23 appt Encounters Encounter Location Date Provider Diagnosis [facility] [address] [facility] [address] [place] [phone] 04/01/2023 Keith Jc Plan Of Treatment No Information Progress Notes * Danyel MALIKOB:[birth year] (57 yo F)Acc No.[id number]:04/01/2023 Patient:?Janna Malik :1965???Age:57 Y???Sex:Female Address:[address] [place] [address], [phone] * true * Date:? Generated for Printi ng/Faakirag/eTransmitting on:?09/17/2024 11:03 AM EST
--- OUTSIDE RECORDS SUMMARY | 2024-09-17 11:03 | XMS_ITS | Encounter Summary ---
Author Organization [facility] Address [address] [place] [address] Care Team Providers Care Shop Hand Name Role Phone Al Garcia MD Primary Care Provider Unavail able Padmini Baltazar DO Primary Care Pro vider Unavailable Melida Morales MD Primary Care Provider Unavaila ble Audrey Ramirez MD Primary Care Provider Un available Gaudencio Ballard MD Primary Care Provider Unavailabl e Encounter Details Date Type Department Care Team Description 02/05/2013 Grocery Deliverer Report Medical Records [address] [place] [address] Warren Islas MD, MD Social History Tobacco Use Types Packs/Day [...] on filedocumented in this encounter Care Teams Shop Hand Relationship Specialty Start Date End Date Al [...]
--- OUTSIDE RECORDS SUMMARY | 2024-09-17 11:03 | XMS_ITS | Clinical Summary ---
Author Organization [facility] Address [address] [place] [address] Care Team Providers Care Package Worker Name Role Phone Gaudencio Ballard MD Primary Care Provider [phone] Allergies Active Allergy Reactions Criticality Noted Date Comments Cat Dander 04/11/2023 Latex Rash,Other (see comments) High 12/17/2005 Other 04/11/2023 Cigarette smoke Penicillins 04/11/2023 Tamsulosin 04/11/2023 Tramadol Other (see comments) 03/25/2014 Vomiting,nausea,shaking Trazodone Other (see comments) High 09/26/2020 Other reaction(s): heart palpitations Medications omeprazole (PriLOSEC) [address] capsule Take 20 mg by mouth 6 Active gabapentin (NEURONTIN) 100 MG capsule Take 300 mg by mouth at bed time 1 Active cholecalciferol (VITAMIN D-3 SUPER STRENGTH) 50 MCG (1999 UT) tablet Vitamin D TABS oral in morning. Active ALBUTEROL SULFATE PO Take by mouth Activ e amitriptyline (ELAVIL) 10 MG tablet Take 10 mg by mouth every night Active clobetasol (TEMOVATE) 0.05 % ointment Apply topically 2 (two) times a day Active Magnesium 250 MG tablet Take 1 tablet by mouth 1 (one) time each day Active omega-3 (FISH OIL) 500 MG capsule Take 500 mg by mouth 1 (one) time each day Active Turmeric (QC TUMERIC COMPLEX PO) Take 400 mg by mouth 1 (one) time each day Active venlafaxine XR (EFFEXOR-XR) 150 MG 24 hr capsule Take 150 mg by mouth 1 (one) time each day Do not crush or chew. Active pyridoxine (VITAMIN B-6) 100 MG tabletIndicatio ns:Kidney stone prevention Take 1 tablet (100 mg total) by mouth 1 (one) time each day 30 tablet 11 4 10/16/19 Active Active Problems Problem Noted Date Diagnosed Date Chronic kidney disease, stage 2 (mild) 4 Urinary incontinence 04/11/2023 04/11/2023 Foot pain 05/19/2019 04/12/2023 Plantar fasciitis 05/19/2019 04/12/2023 Lower abdominal pain 10/22/2018 04/11/2023 Urgency of urination 06/24/2015 04/11/2023 Other microscopic hematuria 06/17/201503/20 Calculus of kidney 11/20/2010 04/11/2023 Iron deficiency anemia 08/17/2005 Overview (04/11/2023): 08/26 41 hct Overview: 08/26 41 hct Resolved Problems Problem Noted Date Diagnosed Date Resolved Date Gastroesophageal reflux disease 04/11/2023 3 04/11/2023 Indigestion 12/19/2018 04/11/2023 04/11/2023 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 Epidural lipomatosis L5-S1 and sacral canal. Overview: Onset ~ 2013 Gabapentin and Lyrica caused headaches Cymbalta caused nausea Overview: 04/01-mri Small annular tear L5-S1. Epidural lipomatosis L5-S1 and sacral canal. Bipolar II disorder 06/10/2013 04/11/2023 04/11/20 Posttraumatic stress disorder 06/10/2013 04/11/2023 04/11/2023 Depressive disorder 09/05/2011 04/11/2023 04/11/20 Overview (04/11/2023): Zoloft and wellbutrin not tolerated Seeing therapist Overview: Zoloft and wellbutrin not tolerated Seeing therapist Asthma 06/24/2008 04/11/2023 04/11/2023 Abdominal pain, epigastric 01/20/2007 04/11/2023 0 04/11/2023 Overview (04/11/2023): 01/[address] cornejo negative 11/27- ct abd Bilateral nonobstructing renal calculi. Overview: 01/[address] cornejo negative 11/27- ct abd Bilateral nonobstructing renal calculi. Immunizations Name Administration Dates Next Due Pneumococcal Conjugate 13-Valent 04/17/2016 Td, Unspecified 08/27/2003 Tdap 06/26/2012,08/27/2003 Family History Medical History Relation Comments Nephrolithiasis Daughter Nephrolithiasis Father Cancer Father's Sister 1 Nephrolithiasis Father's Sister 2 Alzheimer's disease Mother Asthma Mother Dementia Mother Relation Status Comments Daughter Alive Father Father's Sister 1 Father's Sister 2 Alive Mother Social History Tobacco Use Types Packs/Day Years Used Date Smoking Tobacco: Never Passive Smoke Exposure: Never Smokeless Tobacco: Never Alcohol Use Standard Drinks/Week Comments Never 0 (1 standard drink = 0.6 oz pur e alcohol) Comments Unknown Sex and Gender Information Value Date Recorded Sex Assigned at Not on file Legal Sex Female 11:48 AM EDT Gender Identity Not on file Sexual Orientation Not on file Last Filed Vital Signs Vital Sign Reading Time Taken Comments Blood Pressure 114/78 11/14/2023 3:08 PM EDT Pulse 85 11/14/2023 3:08 PM EDT Temperature - - Respiratory Rate - - Oxygen Saturation 98% 06/24/2023 2:07 PM EST Inhaled Oxygen Concentration - - Weight 80.3 kg (177 lb) 11/14/2023 3:08 PM EDT Height - - Body Mass Index - - Plan of Treatment Upcoming Encounters Date Type Department Care Team (Late st Contact Info) Description 11/12/2024 1:30 PM EDT Office Visit [facility] [address] [phone] Dania Celaya ARNP [address] [address] Health Maintenance Due Date Last Done Comments Breast Cancer Screening 1965 Hepatitis B Vaccine (1 of 3 - 19+ 3-dose series) 04/29 Colorectal Cancer Screening: Annual FOBT 2016 Colorectal Cancer Screening: Colonoscopy 2016 Colorectal Cancer Screening: Sigmoidoscopy 2016 Pneumococcal Vaccine: Pediat rics (0 to 5 Years) and At-Risk Patients (6 to 64 Years) (2 of 2 - PPSV23 or PCV20) 06/12/2016 04/17/2016 Influenza Vaccine (#1) 2024 Insurance [facility] [employer] DUAL SNP ([id number]) [facility] [employer] DUAL SNP ([id number]) Care Teams Package Worker Relationship Specialty Start Date End Date Gaudencio Ballard MD [facility] [place] [address] PCP - General Internal Medicine 12/12/22
--- OUTSIDE RECORDS SUMMARY | 2024-09-17 11:03 | XMS_ITS | Encounter Summary ---
Author Organization [facility] Address [address] [place] [address] Care Team Providers Care Tourist Camp Attendant Name Role Phone Al Garcia MD Primary Care Provider Unavail able Padmini Baltazar DO Primary Care Pro vider Unavailable Melida Morales MD Primary Care Provider Unavaila ble Audrey Ramirez MD Primary Care Provider Un available Gaudencio Ballard MD Primary Care Provider Unavailabl e Encounter Details Date Type Department Care Team Description 09/02/2014 Plastic Boat Patcher Report Medical Records [address] [place] [id number] [place] [address] Social History Tobacco Use Types Packs/Day Years [...] on filedocumented in this encounter Care Teams Tourist Camp Attendant Relationship Specialty Start Date End Date Al [...]
--- OUTSIDE RECORDS SUMMARY | 2024-09-17 11:03 | XMS_ITS | Encounter Summary ---
Author Organization [facility] Address [address] [place] [address] Care Team Providers Care V Belt Mold Assembler And Curer Name Role Phone Al Garcia MD Primary Care Provider Unavail able Padmini Baltazar DO Primary Care Pro vider Unavailable Melida Morales MD Primary Care Provider Unavaila ble Audrey Ramirez MD Primary Care Provider Un available Gaudencio Ballard MD Primary Care Provider Unavailabl e Encounter Details Date Type Department Care Team Description 01/12/2015 Business Doc Medical Records [address] [place] [address] Abstract, Provider Social History Tobacco Use Types Packs/Day Years [...] on filedocumented in this encounter Care Teams V Belt Mold Assembler And Curer Relationship Specialty Start Date End Date Al [...]
--- OUTSIDE RECORDS SUMMARY | 2024-09-17 11:03 | XMS_ITS | Encounter Summary ---
Author Organization [facility] Address [address] [place] [address] Care Team Providers Care Power Barker Operator Name Role Phone Al Garcia MD Primary Care Provider Unavail able Padmini Baltazar DO Primary Care Pro vider Unavailable Melida Morales MD Primary Care Provider Unavaila ble Audrey Ramirez MD Primary Care Provider Un available Gaudencio Ballard MD Primary Care Provider Unavailabl e Encounter Details Date Type Department Care Team Description 10/19/2005 Hospital Medical Records [address] [place] [address] Abstract, Provider Social History Tobacco Use Types [...] on filedocumented in this encounter Care Teams Power Barker Operator Relationship Specialty Start Date End Date [...]
--- OUTSIDE RECORDS SUMMARY | 2024-09-17 11:03 | XMS_ITS | Encounter Summary ---
Author Organization [facility] Address [address] [place] [address] Care Team Providers Care Java Flex Developer Name Role Phone Al Garcia MD Primary Care Provider Unavail able Padmini Baltazar DO Primary Care Pro vider Unavailable Melida Morales MD Primary Care Provider Unavaila ble Audrey Ramirez MD Primary Care Provider Un available Gaudencio Ballard MD Primary Care Provider Unavailabl e Encounter Details Date Type Department Care Team Description 12/02/2013 Hospital Medical Records [address] [place] [address] Asad Davis Social History Tobacco Use Types Packs/Day Years [...] on filedocumented in this encounter Care Teams Java Flex Developer Relationship Specialty Start Date End Date Al [...]
--- OUTSIDE RECORDS SUMMARY | 2024-09-17 11:03 | XMS_ITS | Encounter Summary ---
Author Organization [facility] Address [address] [place] [address] Care Team Providers Care Senior Estimator Name Role Phone Al Garcia MD Primary Care Provider Unavail able Padmini Baltazar DO Primary Care Pro vider Unavailable Melida Morales MD Primary Care Provider Unavaila ble Audrey Ramirez MD Primary Care Provider Un available Gaudencio Ballard MD Primary Care Provider Unavailabl e Encounter Details Date Type Department Care Team Description 04/30/2014 Engine Manager Report Medical Records [address] [place] [address] Edwige Gannon MD Social History Tobacco Use Types Packs/Day [...] on filedocumented in this encounter Care Teams Senior Estimator Relationship Specialty Start Date End Date Al [...]
--- OUTSIDE RECORDS SUMMARY | 2024-09-17 11:03 | XMS_ITS | Clinical Summary ---
Author Organization [facility] Address [address] [place] [address] Care Team Providers Care Health Information Clerk Name Role Phone Margie Pham MD Primary Care Provider [phone] Allergies Active Allergy Reactions Criticality Noted Date Comments Latex 11/04/2017 Tramadol 11/04/2017 Medications Medication Sig Dispensed Refills Start Date End Date Status ibuprofen (ADVIL,MOTRIN) 600 MG tabletIndications:F ibromyalgia Take 600 mg by mouth continuous prn for pain. 0 Active albuterol (PROVENTIL HFA;VENTOLIN HFA) 108 (90 Base) MCG/ACT inhalerIndications: Mild intermittent asthma without complication Inhale 2 puffs into the lungs every 6 (six) hours as needed for wheezing. 0 Active albuterol (PROVENTIL) (2.5 MG/3ML) 0.083% nebulizer solutionIndications :Mild intermittent asthma without complication Take 2.5 mg by nebulization every 6 (six) hours as needed for wheezing. 0 Active Cholecalciferol (VITAMIN D-3 PO) Take 5,000 Units by mouth. 0 Active lubiprostone (AMITIZA) 8 MCG capsuleIndications: Slow transit constipation Take 1 capsule (8 mcg) daily x 7 days, then increase to 1 capsule (8 mcg) twice daily. 48 capsule 0 11/20/2018 Active Additional Information Patient not taking.Reason: Other, Reported on 01/14/2019 Rhubarb 4 MG TABSIndications:Hot flashes due to surgical menopause Take 4 mg by mouth daily. 28 tablet 0 11/20/2018 Active PAIN RELIEVER 325 MG tablet 2 12/13/2018 Active estradiol (VIVELLE-DOT) 0.1 MG/24HRIndications: Hot flashes due to surgical menopause Place 1 patch onto the skin 2 (two) times a week. 8 patch 5 12/25/2018 Active estradiol (VIVELLE-DOT) 0.1 MG/24HRIndications: Hot flashes due to surgical menopause APPLY 1 PATCH EXTERNALLY TO THE SKIN 2 TIMES A WEEK 25 patch 4 06/18/2019 Active Active Problems Problem Noted Date Diagnosed Date Indigestion 12/19/2018 Female cystocele 05/24/2018 Immunizations Name Administration Dates Next Due Pneumococcal Conjugate PCV13 04/17/2016 Td (Adult), Unspecified formulation 08/27/2003 Tdap 06/26/2012 Family History Medical History Relation Name Comments Alzheimer's disease Mother Relation Name Status Comments Mother Alive Social History Tobacco Use Types Packs/Day Years [...] Sign Reading Time Taken Comments Blood Pressure 120/64 01/14/2019 3:51 PM EDT Pulse 67 01/14/2019 3:51 PM EDT Temperature 36.9 ??C (98.5 ??F) 01/14/2019 3:51 PM ED T Respiratory Rate 16 05/22/2018 4:29 PM EDT Oxygen Saturation 97% 01/14/2019 3:51 PM EDT Inhaled Oxygen Concentration - - Weight 69.9 kg (154 lb) 01/14/2019 3:51 PM EDT Height 161.9 cm (5' 3.75 ) 01/14/2019 3:51 PM ED T Body Mass Index 26.64 01/14/2019 3:51 PM EDT Plan of Treatment Health Maintenance Due Date Last Done Comments Hepatitis B Vaccines (1 of 3 - 3-dose series) 1965 Hepatitis C Screening 1965 COVID-19 Vaccine (#1) 1965 Colon Cancer Screening (Colonoscopy) 2012 Shingrix-Zoster Vaccine (1 of 2) 2017 BMI Counseling 01/15/2020 01/14/2019, 05/0 02/2019, 11/20/2018, Additional history exists Depression Screening 01/15/2020 01/14/2019 Preventative Health Evaluation 01/15/2020 01/14/2019, 01/14/2019 Breast Cancer Screening (Mammogram) 09/02/2020 09/02/2018 (Pt Reported - Need documentation) Cervical Cancer Screening (Pap Smear) 11/20/2021 11/20/2018 (Pt Reported - Need documentation) DTap / Tdap / Td (2 - Td or Tdap) 06/26/2022 06/26/2012, 08/27/2003 Influenza Vaccine (#1) 2024 Pneumococcal Vaccine Aged Out 04/17/2016 No long er eligible based on patient's age to complete this topic RSV Ped < 20 months Aged Out No longe r eligible based on patient's age to complete this topic Care Teams Health Information Clerk Relationship Specialty Start Date End Date Margie Pham MD PCP - General Internal Medicine 10/25/17
--- OUTSIDE RECORDS SUMMARY | 2024-09-17 11:03 | XMS_ITS | Encounter Summary ---
Author Organization [facility] Address [address] [place] [address] Care Team Providers Care Overhead Distribution Engineer Name Role Phone Al Garcia MD Primary Care Provider Unavail able Padmini Baltazar DO Primary Care Pro vider Unavailable Melida Morales MD Primary Care Provider Unavaila Audrey Reyez MD Primary Care Provider Un available Gaudencio Ballard MD Primary Care Provider Unavailabl e Encounter Details Date Type Department Care Team Description 05/11/2013 Senior Java Software Engineer Report Medical Records [address] [place] [address] [id number] Social History Tobacco Use Types Packs/Day Years [...] on filedocumented in this encounter Care Teams Overhead Distribution Engineer Relationship Specialty Start Date End Date Al [...]
--- OUTSIDE RECORDS SUMMARY | 2024-09-17 11:04 | XMS_ITS | Encounter Summary ---
Author Organization [facility] Address [address] [place] [address] Care Team Providers Care Fiberglass Container Winding Operator Name Role Phone Al Garcia MD Primary Care Provider Unavail able Padmini Baltazar DO Primary Care Pro vider Unavailable Melida Morales MD Primary Care Provider Unavaila ble Audrey Ramirez MD Primary Care Provider Un available Gaudencio Ballard MD Primary Care Provider Unavailabl e Encounter Details Date Type Department Care Team Description 03/31/2012 Hospital Medical Records [address] [place] [id number] Melissa Hawk Social History Tobacco Use Types Packs/Day Years [...] on filedocumented in this encounter Care Teams Fiberglass Container Winding Operator Relationship Specialty Start Date End Date [...]
--- OUTSIDE RECORDS SUMMARY | 2024-09-17 11:04 | XMS_ITS ---
[facility] Address [address] [place] [address] Care Team Providers Care Splicing Technician Name Role Phone Elio MATHIS, Gaudencio Primary Care Provider Keith Shaver [phone] Encounters Encounter Location Date [facility] [address] [address] 04/02/2023 Keith Jc Plan Of Treatment No Information Progress Notes * Lasha MALIKeDOB:[birth year] (59 yo F)Acc No.[id number]:04/02/2023 Progress Notes Patient:?KING Janna Provider:?Keith Jc DPM :1965???Age:57 Y???Sex:Female D ate:04/02/2023 Address:[address] [place], [place] [id number] Pcp:Gaudencio Ballard MD Subjective: * Chief Complaints: [...] DPM Date:? 023 Generated for Sofi ayoub/Keren/Rhea on:?09/17/2024 11:04 AM EST History and Physical Notes * HPI [...]
--- OUTSIDE RECORDS SUMMARY | 2024-09-17 11:04 | XMS_ITS | Encounter Summary ---
Author Organization [facility] Address [address] [place] [address] Care Team Providers Care Can Cutter Name Role Phone Padmini Baltazar DO Primary Care Pro vider Unavailable Melida Morales MD Primary Care Provider Unavaila Audrey Reyez MD Primary Care Provider Un available Gaudencio Ballard MD Primary Care Provider Unavailabl e Encounter Details Date Type Department Care Team Description 03/22/2015 Technician Terminal And Repeater Report Medical Records [address] [place] [id number] [place], [place] [address]Nette Fifi Social History Tobacco Use Types Packs/Day Years [...] on filedocumented in this encounter Care Teams Can Cutter Relationship Specialty Start Date End Date Padmini Baltazar DO PCP - General Internal Medicine 03/16/15 06/30/15 Melida Morales MD PCP - General Internal Medicine 07/01/15 01/19/16 Audrey Ramirez MD PCP - General Internal Medicine 01/20/16 Gaudencio Ballard MD PCP - General Internal Medicine 09/16/19 documented as of this encounter
--- OUTSIDE RECORDS SUMMARY | 2024-09-17 11:05 | XMS_ITS | Encounter Summary ---
Author Organization [facility] Address [address] [place] [address] Care Team Providers Care Senior Network Security Architect Name Role Phone Melida Morales MD Primary Care Provider Unavaila Audrey Reyez MD Primary Care Provider Un available Gaudencio Ballard MD Primary Care Provider Unavailabl e Encounter Details Date Type Department Care Team Description 07/07/2015 Multi Needle Machine Operator Report Medical Records [address] [place] [address] Social History Tobacco Use Types Packs/Day Years [...] filedocumented in this encounter Care Teams Senior Network Security Architect Relationship Specialty Start Date End Date Melida Morales MD PCP - General Internal Medicine 07/01/15 01/19/16 Audrey Ramirez MD PCP - General Internal Medicine 01/20/16 Gaudencio Ballard MD PCP - General Internal Medicine 09/16/19 documented as of this encounter
--- OUTSIDE RECORDS SUMMARY | 2024-09-17 11:05 | XMS_ITS | Clinical Summary ---
Author Organization [facility] Address [address] [place] [address] Care Team Providers Care Speech Lang Path Name Role Phone Gaudencio Ballard MD Primary Care Provider Unavailabl e Allergies Active Allergy Reactions Severity Noted Date Comments Latex Rash/Dermatitis 12/17/2005 Tramadol Headaches 03/25/2014 Vomiting,nausea,shaking Medications Medication Sig Dispensed Refills Start Date End Date Status Multiple Vitamins-Minerals (MULTIVITAMIN OR) Take by mouth. 0 Act ever omeprazole (PRILOSEC) 20 MG capsule Take 1 Cap by mouth 2 times daily (before meals). 60 Cap 11 04/11/2016 Active ALBUTEROL SULFATE 108 (90 BASE) MCG/ACT Aero Soln Inhale 2 Puffs into the lungs every 4 hours as needed for Cough or Wheezing. 1 Inhaler 5 04/17/2016 Active fluticasone 50 MCG/ACT nasal spray SHAKE LIQUID AND USE 2 SPRAYS IN EACH NOSTRIL DAILY 1 Bottle 5 06/19/2016 Active betamethasone dipropionate (DIPROLENE) 0.05 % cream Apply small amount twice daily to affected area. 1 Tube 0 02/14/2017 Active mupirocin (BACTROBAN) 2 % ointment Apply twice a day to nose x 1 week 22 g 0 03/30/2017 Active Alpha-Lipoic Acid 600 MG Cap Take 1 Cap by mouth daily. 30 Cap 0 05/09/2017 Active albuterol (PROVENTIL) (2.5 MG/3ML) 0.083% nebulizer solution INHALE THE CONTENTS OF 1 VIAL VIA NEBULIZER EVERY 4 HOURS NEEDED FOR WHEEZING 150 mL 3 05/22/2017 Active ibuprofen (ADVIL,MOTRIN) 600 MG tablet TAKE 1 TABLET BY MOUTH DAILY NEEDED FOR PAIN 30 Tab 0 10/17/2017 Active methocarbamol (ROBAXIN) 500 MG tablet Take 1 Tab by mouth 4 times daily for 10 days. 40 Tab 0 11/14/2017 Active Diclofenac Sodium (VOLTAREN) 1 % Gel Place 1 g onto the skin daily. 100 g 2 11/14/2017 Active gabapentin (NEURONTIN) 100 MG capsule TAKE 1 CAPSULE BY MOUTH AT BEDTIME 0 10/19/2020 Active estradiol (VIVELLE-DOT) 0.1 MG/24HR 0 12/18/2020 Active pimecrolimus (Elidel) 1 % cream Apply small amount to affected areas BID for 4 weeks then stop 30 g 0 12/27/2020 Active Active Problems Problem Noted Date Fibromyalgia 05/29/2017 Overview: Onset ~ 2013 Gabapentin and Lyrica caused headaches Cymbalta caused nausea Cystocele 06/08/2016 Rectocele 06/08/2016 Backache 05/03/2014 Overview: 04/01-mri Small annular tear L5-S1. Epidural lipomatosis L5-S1 and sacral canal. Bipolar 2 disorder 06/10/2013 PTSD (post-traumatic stress disorder) Depression 09/05/2011 Overview: Zoloft and wellbutrin not tolerated Seeing therapist Calculus of kidney 11/20/2010 Asthma 06/24/2008 Abdominal pain, epigastric 01/20/2007 Overview: 01/[address] cornejo negative 11/27- ct abd Bilateral nonobstructing renal calculi. Iron deficiency anemia 08/17/2005 Overview: 08/26 42 hct Immunizations Name Administration Dates Next Due Pneumococcal Conjugate PCV-13 04/17/2016 TETANUS/DIPTHERIA (ADULT) 08/27/2003 Tdap 06/26/2012 Family History Medical History Relation Name Comments Hypertension Mother Blindness Negative Hx CA Breast Negative Hx CA Colon Negative Hx CA Ovarian Negative Hx Cataract Negative Hx Glaucoma Negative Hx Macular Degeneration Negative Hx Strabismus Negative Hx Uterine Cancer Negative Hx Relation Name Status Comments Brother Alive 3,healthy Father Alive gerd Mother Alive dementia Sister Alive 3,healthy Social History Tobacco Use Types Packs/Day Years Used Date Smoking Tobacco: Never Smokeless Tobacco: Never Alcohol Use Standard Drinks/Week Comments No 0 (1 standard drink = 0.6 oz pur e alcohol) Sex Assigned at Date Recorded Not on file Last Filed Vital Signs Vital Sign Reading Time Taken Comments Blood Pressure 98/68 12/27/2020 3:12 PM EDT Pulse 64 12/27/2020 3:12 PM EDT Temperature 36.6 ??C (97.9 ??F) 11/14/2017 2:01 PM ED T Respiratory Rate 12 10/14/2020 9:38 AM EST Oxygen Saturation 98% 09/21/2016 2:24 PM EST Inhaled Oxygen Concentration - - Weight 79.8 kg (176 lb) 12/27/2020 3:12 PM EDT Height 162.6 cm (5' 4 ) 12/27/2020 3:12 PM EDT Body Mass Index 30.21 12/27/2020 3:12 PM EDT Plan of Treatment Health Maintenance Due Date Last Done Comments Covid-19 Vaccine (#1) 1965 DEPRESSION SCREEN 11/01/2016 11/02/2015, 03/14/2015 COLON CANCER SCREENING 2017 SHINGLES VACCINE (1 of 2) 2017 CHOLESTEROL SCREENING 06/26/2017 06/26/2012 , 06/05/2010, 08/27/2003 BASELINE HEALTH EXAM 40-64 11/01/201711/01, 06/26/2012, 06/26/2012, Additional history exists MAMMOGRAM 09/16/2020 09/16/2019, 08/20, 09/11/2017, Additional history exists INFLUENZA (#1) 2024 BMI CHECK/ADVISE 08/19/2024 10/14/2020, 04/2018, 11/14/2017, Additional history exists DTAP/TDAP/TD (3 - Td or Tdap) 01/16/2029 01/16/2019, 06/26/2012 PNEUMOCOCCAL VACCINE FOR HIG H RISK PATIENTS (#2) 2032 08/20/2016, 04/17/2016 HEPATITIS C SCREENING Completed 06/21/2008, 007 Care Teams Speech Lang Path Relationship Specialty Start Date End Date Gaudencio Ballard MD PCP - General Internal Medicine 09/16/19
--- OUTSIDE RECORDS SUMMARY | 2024-09-17 11:05 | XMS_ITS | Encounter Summary ---
Author Organization [facility] Address [address] [place] [address] Care Team Providers Care E Commerce Analyst Name Role Phone Melida Morales MD Primary Care Provider Unavaila Audrey Reyez MD Primary Care Provider Un available Gaudencio Ballard MD Primary Care Provider Unavailabl e Encounter Details Date Type Department Care Team Description 09/29/2015 Business Doc Medical Records [address] [place] [address] Abstract, Provider Social History Tobacco Use Types [...] on filedocumented in this encounter Care Teams E Commerce Analyst Relationship Specialty Start Date End Date Melida Morales MD PCP - General Internal Medicine 07/01/15 01/19/16 Audrey Ramirez MD PCP - General Internal Medicine 01/20/16 Gaudencio Ballard MD PCP - General Internal Medicine 09/16/19 documented as of this encounter
--- OUTSIDE RECORDS SUMMARY | 2024-09-17 11:05 | XMS_ITS | Encounter Summary ---
Author Organization [facility] Address [address] [place] [address] Care Team Providers Care Field Sales Executive Name Role Phone Al Garcia MD Primary Care Provider Unavail able Padmini Baltazar DO Primary Care Pro vider Unavailable Melida Morales MD Primary Care Provider Unavaila ble Audrey Ramirez MD Primary Care Provider Un available Gaudencio Ballard MD Primary Care Provider Unavailabl e Encounter Details Date Type Department Care Team Description 06/18/2011 Hospital Medical Records [address] [place] [address] Melissa Hawk Social History Tobacco Use Types [...] on filedocumented in this encounter Care Teams Field Sales Executive Relationship Specialty Start Date End Date Al [...]
--- OUTSIDE RECORDS SUMMARY | 2024-09-17 11:05 | XMS_ITS | Encounter Summary ---
Author Organization [facility] Address [address] [place] [address] Care Team Providers Care Repair Armature Winder Name Role Phone Melida Morales MD Primary Care Provider Unavaila Audrey Reyez MD Primary Care Provider Un available Gaudencio Ballard MD Primary Care Provider Unavailabl e Encounter Details Date Type Department Care Team Description 11/02/2015 Wellness Visit Medical Records [address] [place] [address] Melida Morales MD Social History Tobacco Use Types Packs/Day [...] on filedocumented in this encounter Care Teams Repair Armature Winder Relationship Specialty Start Date End Date Melida Morales MD PCP - General Internal Medicine 07/01/15 01/19/16 Audrey Ramirez MD PCP - General Internal Medicine 01/20/16 Gaudencio Ballard MD PCP - General Internal Medicine 09/16/19 documented as of this encounter
--- OUTSIDE RECORDS SUMMARY | 2024-09-17 11:05 | XMS_ITS | Encounter Summary ---
Author Organization [facility] Address [address] [place] [address] Care Team Providers Care Certified Mortician Name Role Phone Gaudencio Ballard MD Primary Care Provider Unavailabl e Encounter Details Date Type Department Care Team Description 02/09/2021 Orders Only Cardio PVCA Diag Testing [address] [address] Gaudencio Ballard MD Palpitations (Primary Dx) Social History Tobacco Use Types Packs/Day Years Used Date Smoking Tobacco: Never Smokeless Tobacco: Never Alcohol Use Standard Drinks/Week Comments No 0 (1 standard drink = 0.6 oz pur e alcohol) Sex Assigned at Date Recorded Not on file documented as of this encounter Plan of Treatment Not on file documented as of this encounter Results * ECG HOLTER MONITOR, REVIEW/INTERP (03/15/2021) Gaudencio Ballrad MD CARDIOLOGY [facility] documented in this encounter Visit Diagnoses Diagnosis Palpitations- Primary documented in this encounter Care Teams Certified Mortician Relationship Specialty Start Date End Date Gaudencio Ballard MD PCP - General Internal Medicine 09/16/19 documented as of this encounter
--- OUTSIDE RECORDS SUMMARY | 2024-09-17 11:05 | XMS_ITS | Referral Summary ---
Author Organization [facility] Address [address] [place] [address] Care Team Providers Care Clinical Systems Educator Name Role Phone Margie Pham MD Primary Care Provider [phone] Allergies Active Allergy Reactions Criticality Noted Date Comments Latex Rash High Trazodone Tachycardia High Medications cholecalciferol (VITAMIN D3) 2,000 unit tablet Vitamin D TABS oral in morning. Active ascorbic acid (VITAMIN C) 500 mg tablet Vitamin C TABS oral twice a day Active cyanocobalamin (VITAMIN B12) 100 mcg tablet Vitamin B12 TABS oral morning as needed Active albuterol (PROAIR HFA) 90 mcg inhaler ProAir HFA 108 (90 Base) MCG/ACT Inhalation Aerosol Solution as needed 03/16/20 15 Active gabapentin (NEURONTIN) 300 mg capsule Take 300 mg by mouth 2 times a day. 0 06/04/20 18 Active amitriptyline (ELAVIL) 25 mg tablet Take 25 mg by mouth nightly. at bedtime 0 05/12/20 18 Active ibuprofen (MOTRIN) 600 mg tablet Take 1 tablet (600 mg total) by mouth every 6 hours as needed for pain. 30 tablet 2 10/13/19 19 Active omeprazole (PriLOSEC) 20 mg capsule Take 1 capsule (20 mg total) by mouth daily. 30 capsule 10/23/19 19 Active ondansetron (ZOFRAN ODT) 4 mg disintegrating tablet Dissolve 1 tablet (4 mg total) in the mouth every 6 hours as needed for nausea. 3 tablet 10/23/19 19 Active acetaminophen (TYLENOL) 325 mg tablet Take 2 tablets (650 mg total) by mouth every 4 hours as needed for pain or headache. 60 tablet 2 03/06/20 19 Active ibuprofen (MOTRIN) 600 mg tablet Take 1 tablet (600 mg total) by mouth every 6 hours as needed for pain or headache. Take with food. 60 tablet 10/23/19 Active mineral oil oil Take 15ml up to three times a day (total maximum dose of 45ml) as needed for constipation. 1 Bottle 10/23/19 Active polyethylene glycol 3350 (MIRALAX) 17 gram packet Take 1 packet (17 g total) by mouth 2 times a day. Mix powder in 4 to 8 oz of water, juice, coffee, or tea. 14 packet 1 10/23/19 Active oxyCODONE IR (ROXICODONE) 5 mg tablet Take 1 tablet (5 mg total) by mouth every 12 hours as needed for breakthrough pain. 12 tablet 10/24/19 Active Additional Information Patient not taking.Reported on 10/21/2019 acetaminophen (TYLENOL) 325 mg tablet Take 2 tablets (650 mg total) by mouth every 6 hours as needed for pain. 30 tablet 2 10/25/19 Active ondansetron (ZOFRAN) 4 mg tablet Take 1 tablet (4 mg total) by mouth every 8 hours as needed for nausea or vomiting. 30 tablet 10/25/19 Active fluconazole (DIFLUCAN) 150 mg tablet Take one tablet by mouth as needed for yeast symptoms. Wait 72 hours since last dose until taking this tablet. 1 tablet 10/27/19 Active estradiol (VIVELLE-DOT) 0.1 mg/24 hr Apply one patch twice weekly (every Saturday and ) 8 patch 10/27/19 Active docusate sodium (COLACE) 100 mg capsuleIndications :Drug-induced constipation Take 1 capsule (100 mg total) by mouth 2 times a day. 90 capsule 2 11/01/19 Active fluconazole (DIFLUCAN) 150 mg tabletIndications: Vaginal itching Take 1 tablet (150 mg total) by mouth daily. 1 tablet 1 11/01/19 Active cetirizine (ZyrTEC) 10 mg tablet Take 10 mg by mouth daily. 2 01/16/20 Active fluticasone propionate (FLONASE) 50 mcg/actuation nasal spray SHAKE LQ AND U 1 SPR IEN QD 2 01/16/20 Active ketotifen (ZADITOR) 0.025 % ophthalmic solution 2 01/17/20 Active lidocaine-prilocai ne (EMLA) cream Apply topically to the affected area as needed for pain. 25 g 02/19/20 Active venlafaxine XR (EFFEXOR XR) 37.5 mg capsule venlafaxine ER 37.5 mg capsule,extended release 24 hr Active cyclobenzaprine (FLEXERIL) 10 mg tablet 06/11/20 Active naproxen (NAPROSYN) 500 mg tablet Take 500 mg by mouth 2 times a day. 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 Epidural lipomatosis L5-S1 and sacral canal. Bipolar 2 disorder (CMS/HCC) 06/10/2013 PTSD (post-traumatic stress disorder) 06/10/2013 Depression 09/05/2011 Overview (10/08/2018): Overview: Zoloft and wellbutrin not tolerated Seeing therapist Calculus of kidney 11/20/2010 Asthma 06/24/2008 Abdominal pain, epigastric 01/20/2007 Overview (10/08/2018): Overview: 01/[address] cornejo negative 11/27- ct abd Bilateral nonobstructing renal calculi. Iron deficiency anemia 08/17/2005 Overview (10/08/2018): Overview: 08/26 42 hct Postoperative abdominal pain Resolved Problems Problem Noted Date Diagnosed Date Resolved Date Bilateral low back pain 10/22/2018 03/0 01/2019 Nausea 10/22/2018 10/22/2018 Chills (without fever) 10/22/201810/22 Hesitancy of micturition 10/21/2015 Urgency incontinence 06/24/2015 018 Dysuria 06/17/2015 06/18/2018 Social History Tobacco Use Types Packs/Day Years Used Date Smoking Tobacco: Never Smokeless Tobacco: Never Comments:: Alcohol Use Standard Drinks/Week Comments Not Currently 0 (1 standard drink = 0.6 oz pur e alcohol) Comments No Sex and Gender Information Value Date Recorded Sex Assigned at Female 10/08/2018 2:00 PM EST Legal Sex Female 6:50 PM EDT Gender Identity Female 10/08/2018 2:00 PM EST Sexual Orientation Straight 10/08/2018 2: 00 PM EST Last Filed Vital Signs Vital Sign Reading Time Taken Comments Blood Pressure 140/70 11/23/2020 4:07 PM EDT Pulse 74 10/22/2018 8:50 AM EST Temperature 36.4 ??C (97.6 ??F) 11/23/2020 4:07 PM ED T Respiratory Rate 18 10/22/2018 8:50 AM EST Oxygen Saturation 100% 10/22/2018 8:50 AM EST Inhaled Oxygen Concentration - - Weight 68.9 kg (152 lb) 11/23/2020 4:07 PM EDT Height 160 cm (5' 3 ) 10/20/2018 6:53 PM EST Body Mass Index 26.93 10/20/2018 6:53 PM EST Plan of Treatment Not on file Medical Devices Implanted Type Area Point Of Care Specialist Device Identifier Shelf Expiration Date Model / Serial / Lot Mesh Pelvic Prolapse Polypropylene [id number] [id number] - [id number] Implanted:Qty: 1 on 10/13/2018 by Liat Sheikh MD at [facility] Mesh N/A: Vagina COLOPLAST 05/15/2021 [id number] / [id number] / [id number] [facility] Advance Directives Documents on File Type Date Recorded Patient Scada Technician Expl anation Health Care Proxy 03/07/2021 * Full Code (Latest Code Status on File) Date Activated Date Inactivated Comments 10/13/2018 5:38 AM 10/14/2018 4:15 PM Healthcare Agents on File Name Relationship Healthcare Agent Relationship Communication Evan Hooper Spouse Healthcare Proxy - Primar y Lisa Biggs Daughter Healthcare Prox y - Alternative Care Teams Clinical Systems Educator Relationship Specialty Start Date End Date Margie Pham MD [address] PRIMARY CARE / [place] [address] PCP - General 06/18/18
--- OUTSIDE RECORDS SUMMARY | 2024-09-17 11:05 | XMS_ITS | Encounter Summary ---
Author Organization [facility] Address [address] [place] [address] Care Team Providers Care Crown Blocker Name Role Phone Audrey Ramirez MD Primary Care Provider Un available Gaudencio Ballard MD Primary Care Provider Unavailabl e Reason for Visit * Reason Onset Date Comments APPOINTMENT 12/24/2018 Reschedule Encounter Details Date Type Department Care Team Description 12/24/2018 Telephone Gastroenterology - [address] [place] [phone] Yasir Kimble MD APPOINTMENT (Reschedule) Social History Tobacco Use Types Packs/Day Years Used Date Smoking Tobacco: Never Smokeless Tobacco: Never Alcohol Use Standard Drinks/Week Comments No 0 (1 standard drink = 0.6 oz pur e alcohol) Sex Assigned at Date Recorded Not on file documented as of this encounter Miscellaneous Notes * Telephone Encounter - Alina Hein M.A. - 01/05/2019 8:53 AM EDT Patient is supposed to see Lamin Mendoza.She has been placed on Cam's schedule please call and reschedule with Dr. Kimble.map documented in this encounter Plan of Treatment Not on file documented as of this encounter Visit Diagnoses Not on filedocumented in this encounter Care Teams Crown Blocker Relationship Specialty Start Date End Date Audrey Ramirez MD PCP - General Internal Medicine 01/20/16 Gaudencio Ballard MD PCP - General Internal Medicine 09/16/19 documented as of this encounter
--- OUTSIDE RECORDS SUMMARY | 2024-09-17 11:05 | XMS_ITS | Encounter Summary ---
Author Organization [facility] Address [address] [place] [address] Care Team Providers Care Sludge Mill Operator Name Role Phone Gaudencio Ballard MD Primary Care Provider Unavailabl e Encounter Details Date Type Department Care Team Description 12/02/2023 Film Rental Clerk Report Medical Records [address] [place] [id number] Dima Fish Social History Tobacco Use Types Packs/Day Years [...] on filedocumented in this encounter Care Teams Sludge Mill Operator Relationship Specialty Start Date End Date Gaudencio Ballard MD PCP - General Internal Medicine 09/16/19 documented as of this encounter
--- OUTSIDE RECORDS SUMMARY | 2024-09-17 11:05 | XMS_ITS | Patient Health Record ---
[facility] Address [address] [place] [address] Care Team Providers Care District Traffic Chief Name Role Phone Elio [facility]ATH[facility], [facility] Primary Care Provider Keith Shaver Unavailable [phone] Allergies Allergen (clinical drug ingredient) Drug/Non Drug [...] Status Risk Notes Problem Acquired hallux valgus (39354928) Hallux valgus (acquired), left foot (M20.12) Active confirmed Problem Acquired hallux valgus (92453304) Hallux valgus (acquired), right foot (M20.11) Active confirmed Plan Of Treatment No Information Insurance Providers Payer Name Payer Address Payer Phone Subscriber Number Group Number Insured Name Patient Relationship to Insured Coverage Start Date Coverage End Date [facility] [employer] Claims [address] [place] [phone] [id number] Janna Hooper Self - patient is the insured Medical (General) History Medical History History ICD Code Anxiety Arthritis asthma Back,Hip,and Knee pain Fibromyalgia Reflux ( GERD) Chicken pox Surgical History Surgery Date(Month/Year) bladder suspension 2009, 2010, 2011 hysterectomy 2012, 2014, 2018 Hospitalization History Reason Date(Month/Year) CDI MRI bilateral ankles 07/21/20
--- OUTSIDE RECORDS SUMMARY | 2024-09-17 11:05 | XMS_ITS | Encounter Summary ---
Author Organization [facility] Address [facility] [place] [address] Care Team Providers Care Safe Expert Name Role Phone Audrey Ramirez MD Primary Care Provider Un available Gaudencio Ballard MD Primary Care Provider Unavailabl e Reason for Visit * Reason Onset Date Comments Faxed Order 11/28/2017 [facility] Encounter Details Date Type Department Care Team Description 11/28/2017 Telephone Adult Medicine [address] [address] Audrey Ramirez MD Faxed Order ([facility]) Social History Tobacco Use Types Packs/Day Years Used Date Smoking Tobacco: Never Smokeless Tobacco: Never Alcohol Use Standard Drinks/Week Comments No 0 (1 standard drink = 0.6 oz pur e alcohol) Sex Assigned at Date Recorded Not on file documented as of this encounter Miscellaneous Notes * Telephone Encounter - Brenda Mora - 11/28/2017 2:25 PM EDT Faxed order from [facility] requires pcp signature and placed in pcp mail bin. documented in this encounter Plan of Treatment Not on file documented as of this encounter Visit Diagnoses Not on filedocumented in this encounter Care Teams Safe Expert Relationship Specialty Start Date End Date Audrey Ramirez MD PCP - General Internal Medicine 01/20/16 Gaudencio Ballard MD PCP - General Internal Medicine 09/16/19 documented as of this encounter
--- OUTSIDE RECORDS SUMMARY | 2024-09-17 11:05 | XMS_ITS | Encounter Summary ---
Author Organization [facility] Address [address] [place] [address] Care Team Providers Care Metalizing Machine Operator Automatic Name Role Phone Audrey Ramirez MD Primary Care Provider Un available Gaudencio Ballard MD Primary Care Provider Unavailabl e Encounter Details Date Type Department Care Team Description 11/27/2017 Chore Worker Report Medical Records [address] [place] [address] Rehab., [place] Social History Tobacco Use Types Packs/Day Years [...] on filedocumented in this encounter Care Teams Metalizing Machine Operator Automatic Relationship Specialty Start Date End Date Audrey Ramirez MD PCP - General Internal Medicine 01/20/16 Gaudencio Ballard MD PCP - General Internal Medicine 09/16/19 documented as of this encounter
--- OUTSIDE RECORDS SUMMARY | 2024-09-17 11:06 | XMS_ITS | Encounter Summary ---
Author Organization [facility] Address [address] [place] [address] Care Team Providers Care Construction Carpenters Helper Name Role Phone Al Garcia MD Primary Care Provider Unavail able Padmini Baltazar DO Primary Care Pro vider Unavailable Melida Morales MD Primary Care Provider Unavaila ble Audrey Ramirez MD Primary Care Provider Un available Gaudencio Ballard MD Primary Care Provider Unavailabl e Encounter Details Date Type Department Care Team Description 03/31/2012 Hospital Medical Records [address] [place] [address] Asad Davis Social History Tobacco Use Types [...] on filedocumented in this encounter Care Teams Construction Carpenters Helper Relationship Specialty Start Date End Date Al [...]
--- OUTSIDE RECORDS SUMMARY | 2024-09-17 11:06 | XMS_ITS | Encounter Summary ---
Author Organization [facility] Address [address] [place] [address] Care Team Providers Care Hide Paster Name Role Phone Al Garcia MD Primary Care Provider Unavail able Padmini Baltazar DO Primary Care Pro vider Unavailable Melida Morales MD Primary Care Provider Unavaila Audrey Reyez MD Primary Care Provider Un available Gaudencio Ballard MD Primary Care Provider Unavailabl e Reason for Referral * Specialist (Urgent) - Authorized/Booked Specialty Diagnoses / Procedures Referred By Annika yan Referred To Contact Neurology Procedures REFERRAL TO NEUROLOGY Ciarra Martinez MD [address] [place] [address] External Neurology Referral ID Status Reason Start Date Expiration Date V isits Requested Visits Authorized SEE REVIEW 06/16/14 Authorized/ Booked 06/15/2014 09/16/2014 1 1 Reason for Visit * Reason Onset Date Comments Shoulder Pain 06/11/2014 Knee Pain 06/11/2014 Encounter Details Date Type Department Care Team Description 06/11/2014 Telephone [place] [address] Ciarra Martinez MD Shoulder Pain; Knee Pain Social History Tobacco Use Types Packs/Day Years Used Date Smoking Tobacco: Never Smokeless Tobacco: Never Alcohol Use Standard Drinks/Week Comments No 0 (1 standard drink = 0.6 oz pur e alcohol) Sex Assigned at Date Recorded Not on file documented as of this encounter Miscellaneous Notes * Telephone Encounter - Corina Yates L.P.N. - 06/15/2014 1:43 PM EDT Lorna, i spoke with the pt and i sent another referral to [facility] to see if we can get her in sooner, Juanita * Telephone Encounter - Corina Yates L.P.N. - 06/14/2014 3:08 PM EDT Spoke with pt and she had an earlier appt with neuro but THEY cancelled her due to a conflict... She will call them tomorrow to see if a sooner appt can be given (her appt is 07/16).. And if not i will celso about changing the referral to [facility]. * Telephone Encounter - Dania Bose M.A. - 06/11/2014 4:23 PM EDT Message left for pt. * Telephone Encounter - Ciarra Martinez MD - 06/11/2014 3:50 PM EDT The pain complaints are chronic and her labs are unrevealing . I had advised her to see neurology if she hasnt seen them already she should make a follow up appointment . May take OTC motrina s needed for pain if persists can see me when I am back * Telephone Encounter - Dania Bose M.A. - 06/11/2014 3:11 PM EDT Pt c/o bilateral shoulder, knee pain. Please review. documented in this encounter Plan of Treatment Not on file documented as of this encounter Visit Diagnoses Not on filedocumented in this encounter Care Teams Hide Paster Relationship Specialty Start Date End Date Al [...]
--- OUTSIDE RECORDS SUMMARY | 2024-09-17 11:06 | XMS_ITS | Encounter Summary ---
Author Organization [facility] Address [address] [place] [address] Care Team Providers Care C 13 Catapult Operator Name Role Phone Al Garcia MD Primary Care Provider Unavail able Padmini Baltazar DO Primary Care Pro vider Unavailable Melida Morales MD Primary Care Provider Unavaila ble Audrey Ramirez MD Primary Care Provider Un available Gaudencio Ballard MD Primary Care Provider Unavailabl e Encounter Details Date Type Department Care Team Description 07/29/2014 Binder Chainstitch Report Medical Records [address] [place] [address] Corin Hassan Social History Tobacco Use Types Packs/Day Years [...] on filedocumented in this encounter Care Teams C 13 Catapult Operator Relationship Specialty Start Date End Date [...]
--- OUTSIDE RECORDS SUMMARY | 2024-09-17 11:06 | XMS_ITS | Encounter Summary ---
Author Organization [facility] Address [address] [place] [address] Care Team Providers Care Smooth Stucco Resurfacer Name Role Phone Audrey Ramirez MD Primary Care Provider Un available Gaudencio Ballard MD Primary Care Provider Unavailabl e Encounter Details Date Type Department Care Team Description 04/17/2016 Business Doc Medical Records [address] [place] [id number] Abstract, Provider Social History Tobacco Use Types [...] on filedocumented in this encounter Care Teams Smooth Stucco Resurfacer Relationship Specialty Start Date End Date Audrey Ramirez MD PCP - General Internal Medicine 01/20/16 Gaudencio Ballard MD PCP - General Internal Medicine 09/16/19 documented as of this encounter
--- OUTSIDE RECORDS SUMMARY | 2024-09-17 11:06 | XMS_ITS | Encounter Summary ---
Author Organization [facility] Address [address] [place] [address] Care Team Providers Care Dredge Pump Operator Name Role Phone Al Garcia MD Primary Care Provider Unavail able Padmini Baltazar DO Primary Care Pro vider Unavailable Melida Morales MD Primary Care Provider Unavaila Audrey Reyez MD Primary Care Provider Un available Gaudencio Ballard MD Primary Care Provider Unavailabl e Reason for Visit * Reason Onset Date Comments Air Defense Control Officer Feedback 06/23/2014 [facility] [phone] Air Defense Control Officer Feedback 06/25/2014 [facility] [phone] Encounter Details Date Type Department Care Team Description 06/23/2014 Telephone Adult Medicine B - [address] [address] Al Garcia MD Air Defense Control Officer Feedback ([facility] [phone]); Air Defense Control Officer Feedback ([facility] [phone]) Social History Tobacco Use Types Packs/Day Years Used Date Smoking Tobacco: Never Smokeless Tobacco: Never Alcohol Use Standard Drinks/Week Comments No 0 (1 standard drink = 0.6 oz pur e alcohol) Sex Assigned at Date Recorded Not on file documented as of this encounter Miscellaneous Notes * Telephone Encounter - Dayna Arita - 07/03/2014 8:52 AM EST LADAN mailed to patient for sensitive information Order faxed to [phone]. * Telephone Encounter - Francesca Walton - 06/25/2014 9:34 AM EST Patient has changed her insurance effective 06/25/2014 to [facility] - ID #[id number]. Now shecan go to [facility]. No insurance referral required per patient's insurance. Patient called and advised of appointment time and date: 07/05/19, with a 9:20am arrival, appt. 9:40am. Patient was advised to bring her new insurance card to visit. I will cancel appointment with [facility]. Diagnosis: Chronic leg numbness & shoulder/neck/back pain. Fax to [phone]. Notes, Orders, Labs and Xrays. * Telephone Encounter - Francesca Walton - 06/23/2014 3:51 PM EST No insurance referral required per patient's insurance. Letter with appointment information mailed to patient. Diagnosis: Chronic leg numbness & shoulder/neck/back pain. Expectations: Interventional Management Only. For pain management appointments, send notes, orders, med list, imaging and any procedures. Fax to [phone]. Notes, Order and Imaging. documented in this encounter Plan of Treatment Not on file documented as of this encounter Visit Diagnoses Not on filedocumented in this encounter Care Teams Dredge Pump Operator Relationship Specialty Start Date End Date [...]
--- OUTSIDE RECORDS SUMMARY | 2024-09-17 11:06 | XMS_ITS ---
Author Organization [facility] Address [address] [place] [address] Care Team Providers Care Surgical Sales Representative Name Role Phone Elio MATHIS, [facility] Primary Care Provider Keith Shaver Unavailable [phone] Allergies Allergen (clinical drug ingredient) Drug/Non Drug [...] 04/16/2023 Encounters Encounter Location Date [facility] [address] [place] [phone] 04/16/2023 Keith Jc Plantar fascial fibromatosis M72.2 [...] * Danyel MALIKOB:[birth year] (57 yo F)Acc No.[id number]:04/16/2023 Progress Notes Patient:?Janna Malik Provider:?Keith Jc DPM :1965???Age:57 Y???Sex:Female D ate:04/16/2023 Address:[address] [place], [place] [phone] Pcp:Gaudencio Ballard MD Subjective: * Chief Complaints: [...] Date:? 023 Generated for Sofi ayoub/Keren/Rhea on:?09/17/2024 11:05 AM EST History and Physical Notes * [...]
--- OUTSIDE RECORDS SUMMARY | 2024-09-17 11:06 | XMS_ITS | Encounter Summary ---
Author Organization [facility] Address [address] [place] [address] Care Team Providers Care Lawyer Real Estate Name Role Phone Audrey Ramirez MD Primary Care Provider Un available Gaudencio Ballard MD Primary Care Provider Unavailabl e Encounter Details Date Type Department Care Team Description 10/04/2016 Business Doc Medical Records [address] [place] [address] Abstract, Provider Social History Tobacco Use Types [...] on filedocumented in this encounter Care Teams Lawyer Real Estate Relationship Specialty Start Date End Date Audrey Ramirez MD PCP - General Internal Medicine 01/20/16 Gaudencio Ballard MD PCP - General Internal Medicine 09/16/19 documented as of this encounter
--- OUTSIDE RECORDS SUMMARY | 2024-09-17 11:06 | XMS_ITS | Clinical Summary ---
Author Organization [facility] Address [address] [place] [address] Care Team Providers Care Wafer Polishing Lead Worker Name Role Phone Margie Pham MD Primary Care Provider [phone] Allergies Active Allergy Reactions Criticality Noted Date [...] Urgency incontinence 06/24/2015 018 Dysuria 06/17/2015 06/18/2018 Family History Relation Name Status Comments Brother 1 Alive Brother 2 Alive Brother 3 Alive Daughter 1 Daughter 2 Alive Daughter 3 Alive Daughter 4 Alive Daughter 5 Alive Daughter 6 Alive Father Alive Mother Alive Sister 1 Alive Sister 2 Alive Social History Tobacco Use Types Packs/Day [...] 10/20/2018 6:53 PM EST Plan of Treatment Health Maintenance Due Date Last Done Comments Cologuard 1967 Colon Cancer Screening 1967 Colonoscopy 1967 FOBT / Fit Test 1967 HIV Screening 1967 Hepatitis C Screening 1967 Sigmoidoscopy 1967 Hepatitis B Vaccines (1 of 3 - 19+ 3-dose series) 1986 Zoster Vaccines (1 of 2) 2017 Mammogram 09/16/2021 09/16/2019 Influenza Vaccine (#1) 2024 Alcohol/Substance Use Screening 08/19/2024 Depression Evaluation 08/19/2024 Social Drivers of Health Ghada ual Screening 08/19/2024 DTaP,Tdap,and Td Vaccines (3 - Td or Tdap) 01/16/2029 01/16/2019, 06/26/2012, 08/27/2003 Pneumococcal Vaccine: Pediat valentin (0-5 Years) and At-Risk Patients (6-64 Years) (3 of 3 - PPSV23 or PCV20) 2032 08/20/2016, 04/17/2016 RSV Vaccine (60+ years old a nd patients) (1 - 1-dose 75+ series) 2042 Medical Devices Implanted Type Area Instrumentation And Controls Designer Device Identifier Shelf Expiration Date Model / Serial / Lot Mesh Pelvic Prolapse Polypropylene Y Shape [id number] [facility] - [id number] - [id number] Implanted:Qty: 1 on 10/13/2018 by Liat Sheikh MD at [facility] Mesh N/A: Vagina COLOPLAST 05/15/2021 [id number] / [id number] Insurance Advance Directives Documents on File Type Date Recorded Patient Muff Winder Expl anation Health Care Proxy 03/07/2021 * Full Code (Latest Code Status on File) Date Activated Date Inactivated Comments 10/13/2018 5:38 AM 10/14/2018 4:15 PM Healthcare Agents on File Name Relationship Healthcare Agent Relationship Communication Evan Hooper Spouse Healthcare Proxy - Primar y Lisa Biggs Daughter Healthcare Prox y - Alternative Care Teams Wafer Polishing Lead Worker Relationship Specialty Start Date End Date Margie Pham MD [address] PRIMARY CARE / [place] [address] PCP - General 06/18/18
--- OUTSIDE RECORDS SUMMARY | 2024-09-17 11:06 | XMS_ITS | Encounter Summary ---
Author Organization [facility] Address [address] [place] [address] Care Team Providers Care Ladle Operator Name Role Phone Al Garcia MD Primary Care Provider Unavail able Padmini Baltazar DO Primary Care Pro vider Unavailable Melida Morales MD Primary Care Provider Unavaila ble Audrey Ramirez MD Primary Care Provider Un available Gaudencio Ballard MD Primary Care Provider Unavailabl e Encounter Details Date Type Department Care Team Description 06/24/2012 Support Services Rep Report Medical Records [address] [place] [address] Elijah Pearson Social History Tobacco Use Types [...] on filedocumented in this encounter Care Teams Ladle Operator Relationship Specialty Start Date End Date [...]
--- OUTSIDE RECORDS SUMMARY | 2024-09-17 11:06 | XMS_ITS | Encounter Summary ---
Author Organization [facility] Address [address] [place] [address] Care Team Providers Care Multimedia Manager Name Role Phone Audrey Ramirez MD Primary Care Provider Un available Gaudencio Ballard MD Primary Care Provider Unavailabl e Reason for Visit * Reason Comments E-prescribe Rx Request Encounter Details Date Type Department Care Team Description 10/29/2016 Refill Adult Medicine [address] [address] Elizabeth Harrington PA-C E-prescribe Rx Request Social History Tobacco Use Types Packs/Day Years Used Date Smoking Tobacco: Never Smokeless Tobacco: Never Alcohol Use Standard Drinks/Week Comments No 0 (1 standard drink = 0.6 oz pur e alcohol) Sex Assigned at Date Recorded Not on file documented as of this encounter Miscellaneous Notes * Telephone Encounter - Bronwyn Reyes M.A. - 10/31/2016 10:57 AM EDT Last given on 02/04/2015 Will you fill? * Telephone Encounter - Nataly Galvan - 10/31/2016 10:52 AM EDT Patient would like script to be: E-PRESCRIBED/FAXED TO PHARMACY WHEN WAS THE PATIENT'S LAST APPOINTMENT IN ADULT MEDICINE? [id number] WHEN WAS THE LAST TIME THE PATIENT SAW THEIR PCP? [id number] Does patient have an upcoming appointment? No-unable to reach left voicemaill to call for appointment due to refill request. Appt due (THE MEDICATION REQUESTED IS ON THE MED LIST ABOVE) All of the medications requested were on the CURRENT MEDS list Did you check the Pharmacy information above?: YES Patient wants: 30 -day supply Is this a mail order prescription request ? NO Patients current insurance carrier is: [place] / [place] / Product Type: MEDICARE [id number] documented in this encounter Plan of Treatment Not on file documented as of this encounter Visit Diagnoses Not on filedocumented in this encounter Care Teams Multimedia Manager Relationship Specialty Start Date End Date Audrey Ramirez MD PCP - General Internal Medicine 01/20/16 Gaudencio Ballard MD PCP - General Internal Medicine 09/16/19 documented as of this encounter
== END 2024-09-17 09:44 | disposition home or self-care (01) ==
LOC: HO.HMCC 08:12
PROVIDERS: PCP Internal Medicine; Visit Provider Internal Medicine
DX: R73.03 Prediabetes (principal); I49.3 Ventricular premature depolarization; R00.2 Palpitations; K44.9 Diaphragmatic hernia without obstruction or gangrene

== ENCOUNTER 2024-09-17 10:20 | Outpatient (REF) | payer OTHER, SELFPAY ==
--- NOTE | ~2024-09-17 | US_ITS ---
CLINICAL HISTORY: R10.9 - Unspecified abdominal pain US abdomen complete Comparison: None Findings: The visualized pancreas is normal. The aorta and inferior vena cava are normal caliber. The liver is normal in size and mildly increased in echotexture. There is no intrahepatic bile duct dilatation. The common duct is 2 mm in diameter. The gallbladder is normal. There is no sonographic Salas sign. The main portal vein is antegrade. The right kidney is 9.3 cm in length. The left kidney is 10.9 cm in length. Nonobstructing 4 mm upper pole calculus. Benign 3 cm lower pole cyst. The spleen is normal. No ascites. IMPRESSION: Mild hepatic steatosis. Nonobstructing 4 mm left renal calculus. This document has been electronically signed by: Ruben Darnell MD on 09/17/2024 12:26:38
--- OUTSIDE RECORDS SUMMARY | 2024-09-17 13:47 | XMS_ITS | Clinical Summary ---
Author Organization [facility] Address [address] [place] [address] Phone Care Team Providers Care Bow Maker Custom Name Role Phone Gaudencio Ballard MD Primary Care Provider [phone] Allergies Active Allergy Reactions Criticality Noted Date [...] Type Department Care Team Description 07/15/2024 Telephone [facility] [address] [facility] [place] [address] Gaudencio Ballard MD 07/15/2024 Telephone [facility] [place] [address] Gaudencio Ballard MD 07/10/2024 Telephone [facility] [place] [address] Gaudencio Ballard MD Referral (Received routine paper [...] Surgery Date Site/Laterality Comments ESOPHAGOGASTRODUODENOSCOPY 01/21/07 PROCEDURE: SD ESOPHAGOGASTRODUODENOSCOPY TRANSORAL DIAGNOSTIC; COMMENT: Normal PARTIAL HYSTERECTOMY 03/2010 PROCEDURE: SD SUPRACERVICAL ABDL HYSTER W/WO RMVL TUBE OVARY; COMMENT: Da Dragan TLH with sacropexy, mesh urethral support OTHER SURGICAL HISTORY PROCEDURE: FEMALE SLING SYS W/WO MATRL OTHER SURGICAL HISTORY PROCEDURE: SD RMVL PROSTC MATRL/MESH ABDL WALL FOR INFECTION BREAST SURGERY 2011 Right PROCEDURE: SD UNLISTED PROCEDURE BREAST; COMMENT: rt cyst removed BREAST BIOPSY 2008 Right PROCEDURE: BX BREAST; PERC NEEDLE CORE W/IMAG GUID; COMMENT: cyst asp FINE NEEDLE ASPIRATION Left PROCEDURE: FINE NDLE ASPRTN W/IMAGING GUIDANCE; COMMENT: 4 YRS. AGO-CYST Medical History Medical History Date Comments Anemia, unspecified DX:Anemia, u nspecified Unspecified asthma(493.90) DX:Un specified asthma(493.90) Esophageal reflux DX:Esophageal reflux Shoulder pain DX:Shoulder pain ; COMMENT: [facility] Family History Medical History Relation [...] Description 09/29/2024 3:00 PM EST Office Visit [facility] [address] [facility] [address] [place] [id number] Tr Romo MD [address] [place] [address],JESSICA [address] [place] [address] Health Maintenance Due Date Last Done Comments [...] Recently Relevant to Health Maintenance Care Teams Bow Maker Custom Relationship Specialty Start Date End Date Gaudencio Ballard MD [address] [place] [address] PCP - General Internal Medicine 09/16/19
--- OUTSIDE RECORDS SUMMARY | 2024-09-17 13:47 | XMS_ITS | Referral Summary ---
Author Organization [facility] Address [address] [place] [address] Care Team Providers Care Environmental Health And Safety Manager Name Role Phone Margie Pham MD Primary Care Provider [phone] Allergies Active Allergy Reactions Criticality Noted Date [...] on file Medical Devices Implanted Type Area Retail Bakery Manager Device Identifier Shelf Expiration Date Model / Serial / Lot Mesh Pelvic Prolapse Polypropylene Y Shape [id number] [facility] - [id number] - [id number] Implanted:Qty: 1 on 10/13/2018 by Liat Sheikh MD at [facility] Mesh N/A: Vagina COLOPLAST 05/15/2021 [id number] / [id number] Insurance [facility] Advance Directives Documents on File Type Date Recorded Patient Clinical Informatics Spec Expl anation Health Care Proxy 03/07/2021 * Full Code (Latest Code Status on File) Date Activated Date Inactivated Comments 10/13/2018 5:38 AM 10/14/2018 4:15 PM Healthcare Agents on File Name Relationship Healthcare Agent Relationship Communication Evan Hooper Spouse Healthcare Proxy - Primar y Lisa Biggs Daughter Healthcare Prox y - Alternative Care Teams Environmental Health And Safety Manager Relationship Specialty Start Date End Date Margie Pham MD [address] PRIMARY CARE / [place] [address] PCP - General 06/18/18
--- OUTSIDE RECORDS SUMMARY | 2024-09-17 13:47 | XMS_ITS | Clinical Summary ---
Author Organization [facility] Address [address] [place] [address] Care Team Providers Care Agricultural Agent Name Role Phone Gaudencio Ballard MD Primary Care Provider [phone] Allergies Active Allergy Reactions Criticality Noted Date [...] Office Visit [facility] [address] [address] Dania Celaya ARNP [address] [address] Health Maintenance Due Date Last [...] 06/12/2016 04/17/2016 Influenza Vaccine (#1) 2024 Insurance [facility] ONE CARE DUAL SNP ([id number]) [facility] ONE CARE DUAL SNP ([id number]) Care Teams Agricultural Agent Relationship Specialty Start Date End Date Gaudencio Ballard MD [facility] [place] [address] PCP - General Internal Medicine 12/12/22
--- OUTSIDE RECORDS SUMMARY | 2024-09-17 13:47 | XMS_ITS | Clinical Summary ---
Author Organization [facility] Address [address] [place] [address] Care Team Providers Care Ceo Ziff Davis Name Role Phone Margie Pham MD Primary Care Provider [phone] Allergies Active Allergy Reactions Criticality Noted Date [...] series) 2042 Medical Devices Implanted Type Area Business Librarian Device Identifier Shelf Expiration Date Model / Serial / Lot Mesh Pelvic Prolapse Polypropylene Y Shape [id number] [facility] - [id number] - [id number] Implanted:Qty: 1 on 10/13/2018 by Liat Sheikh MD at [facility] Mesh N/A: Vagina COLOPLAST 05/15/2021 [id number] / [id number] / [id number] Insurance Advance Directives Documents on File Type Date Recorded Patient Plan Manager Expl anation Health Care Proxy 03/07/2021 * Full Code (Latest Code Status on File) Date Activated Date Inactivated Comments 10/13/2018 5:38 AM 10/14/2018 4:15 PM Healthcare Agents on File Name Relationship Healthcare Agent Relationship Communication Evan Hooper Spouse Healthcare Proxy - Primar y Lisa Biggs Daughter Healthcare Prox y - Alternative Care Teams Ceo Ziff Davis Relationship Specialty Start Date End Date Margie Pham MD [address] PRIMARY CARE / [place] [address] PCP - General 06/18/18
== END 2024-09-17 10:21 | disposition home or self-care (01) ==
LOC: HO.HMGCX 10:20
PROVIDERS: PCP Internal Medicine; Visit Provider Internal Medicine Gastroenterology
DX: R73.03 Prediabetes (principal); I49.3 Ventricular premature depolarization; R00.2 Palpitations; K44.9 Diaphragmatic hernia without obstruction or gangrene; R10.10 Upper abdominal pain, unspecified
CPT/HCPCS: 76700

== ENCOUNTER → 2024-09-17 10:23 | Outpatient (BNV) | payer OTHER, SELFPAY | PROVIDERS: PCP Internal Medicine; Visit Provider Radiology Vascular & Interventional Radiology | DX: N20.0 Calculus of kidney (principal) | CPT/HCPCS: 76700 ==

== ENCOUNTER 2024-10-09 11:28 | Outpatient (AMB) | payer OTHER, SELFPAY ==
--- NOTE | 2024-10-09 11:30 | MHC.OFFVIS ---
Vital Signs 10/09/24 11:32 Height 5 ft 4 in Weight 176 lb 5.917 oz BMI 30.3 BP 122/69 Blood Pressure Location Lt brachial Position Sitting Pulse 82 Intake Visit Reasons: 4 mo f/u GERD Intake Note: Janna presents in the office as a 4 month follow up for GERD. CC: states that sometimes she has bloating in her abdomen and then it will go down and she is unsure if it could be a hiatal hernia. She knows that you wanted to order an RI but she states that she had radiation and wants to know if there are other options of testing to be done. Change Of Address Clerk Required: No Allergies cat dander [cats] Allergy (Intermediate, Verified 10/09/24 11:32) Itchy Eyes and burning cigarette smoke Allergy (Intermediate, Verified 10/09/24 11:32) migraines latex Allergy (Intermediate, Verified 10/09/24 11:32) Rash trazodone Allergy (Intermediate, Verified 10/09/24 11:32) palpitations Penicillins Adverse Reaction (Intermediate, Verified 10/09/24 11:32) Abdominal Pain tamsulosin Allergy (Severe, Uncoded 10/09/24 11:32) Dizziness HPI HPI 4 mo f/u GERD: Details: 59 yr old f called for f/u Initially seen [facility] needed screening colonoscopy abdominal bloating GERD she had 6 surgeries due to bladder mesh and cystocele issues TTG was negative US 12/2021 hepatic steatosis left renal stones, calcifications , renal cyst neg H pylori test EGD/colonsocopy: 07/2022 Endoscopy Findings: sliding hiatal hernia esophagitis schatzki ring Colonoscopy Findings: internal hemorrhoids Path: A. Stomach, biopsy: Antral-type and oxyntic mucosa with moderate chronic active/erosive inflammation; no Helicobacter organisms seen. B. EG junction, biopsy: - Cardiofundic-type mucosa with moderate chronic active inflammation and multilayered epithelium; no fully developed intestinal metaplasia seen. - Chronic active esophagitis (eosinophils and few neutrophils). C. Esophagus, distal, biopsy: Squamous epithelium within normal limits; no inflammation seen. CT- 08/09 kidney stones US 09/17/24 small kidney stone, left fatty liver INTERIM: she has feeling of food being v slow to pass and sitting in stomach she refused ba swallow, seh has breast lumps and doesnt want XR regurgitation is better she is taking sac & fox of [place] and olive oil which helps she avoids lactose due to bloating and taking coconut milk she feels better with high dose PPI EXAM: GENERAL: The patient is well developed and nontoxic. VITAL SIGNS:see workflow HEENT: Nonicteric sclerae, PERRLA, EOMI. Oropharynx clear. Moist mucous membranes. Conjunctivae appear well perfused. No thyroid mass. CHEST: Chest wall is nontender. HEART: Regular rate and rhythm without murmurs. LUNGS: Clear to auscultation bilaterally. ABDOMEN: Soft, positive bowel sounds, nontender, no organomegaly.no flank tenderness SKIN: No rash, no excessive bruising, petechiae, or purpura. NEUROLOGIC: Cranial nerves II-XII intact without motor/sensory deficit. Psych: normal affect A/P: 1/ slow food bolus transit, satiety 2/ Lactulose intolerance PLAN: 1/ cont high dose PPI 2/ EGD with gastric and esophageal stretching, [facility] Medical History Perioral dermatitis Muscle spasm Microscopic hematuria Hot flashes Vitamin D deficiency Fibromyalgia Osteoarthritis Chronic GERD Depression, major, recurrent Surgical History History of esophagogastroduodenoscopy (EGD) H/O colonoscopy History of hysterectomy History of surgery Family History Father No problems noted. Mother Asthma Dementia Alzheimer's disease Paternal Aunt Lung cancer Breast cancer, Onset Age: 62 Brother No problems noted. Brother No problems noted. Brother No problems noted. Sister No problems noted. Sister No problems noted. Sister No problems noted. Paternal Aunt Breast cancer, Onset Age: 70 Other Mental health disorder Social History Household Members: Significant Other and Children Household Members Other:: 2 children Housing: House Are you a primary critical care registered nurse to a significant other at home: No Do you presently have visiting nurse or other home services: No Alcohol intake: never Patient Tobacco Use Status: Never used Tobacco e-Cigarette/Vaping Use: Never Used service: No Current occupational status: unemployed and disabled Cognitive needs: No Hearing needs: No Vision needs: Yes Female Reproductive History Menstrual Age of Menarche: 15 Physical Exam Vital Signs: Last Vital Signs Pulse 82 10/09/24 11:32 BP 122/69 10/09/24 11:32 BMI result Body Mass Index 30.3 Assessment & Plan Assessment & Plan (1) Bloating: Code(s): R14.0 - Abdominal distension (gaseous) Category: Medical Plan: see above Coding Level of Care Code Est Pt Level 3 (67916) Diagnoses Bloating R14.0
[2024-10-09 11:32] VITALS: BP 122/69; PULSE 82; BMI 30.3
--- OUTSIDE RECORDS SUMMARY | 2024-10-09 12:36 | XMS_ITS | Patient Health Record ---
[facility] [place] Address [address] [place] [address] Care Team Providers Care Sales Manager Name Role Phone [facility]io MATHIS, [facility] Primary Care Provider Keith Shaver Unavailable [phone] Allergies Allergen (clinical drug ingredient) Drug/Non Drug [...] Status Risk Notes Problem Acquired hallux valgus (57159831) Hallux valgus (acquired), left foot (M20.12) Active confirmed Problem Acquired hallux valgus (28038802) Hallux valgus (acquired), right foot (M20.11) Active confirmed Plan Of Treatment No Information Insurance Providers Payer Name Payer Address Payer Phone Subscriber Number Group Number Insured Name Patient Relationship to Insured Coverage Start Date Coverage End Date [facility] [employer] Claims [address] [place] [id number] [phone] [id number] Janna Hooper Self - patient is the insured Medical (General) History Medical History History ICD Code Anxiety Arthritis asthma Back,Hip,and Knee pain Fibromyalgia Reflux ( GERD) Chicken pox Surgical History Surgery Date(Month/Year) bladder suspension 2009, 2010, 2011 hysterectomy 2012, 2014, 2018 Hospitalization History Reason Date(Month/Year) CDI MRI bilateral ankles 07/21/20
--- OUTSIDE RECORDS SUMMARY | 2024-10-09 12:36 | XMS_ITS | Encounter Summary ---
Author Organization [facility] Address [address] [place] [address] Care Team Providers Care Lookback Coordinator Name Role Phone Gaudencio Ballard MD Primary Care Provider [phone] Reason for Visit * Reason Comments Initial Assessment * Consultation (Routine) - Closed Specialty Diagnoses / Procedures Referred By Annika yan Referred To Contact Cardiology Diagnoses Palpitations Gaudencio Ballard MD [address] [place] [address] Phone: tel: fax: [facility] [address] [facility] [address] [place] [address] Phone: tel: fax: Referral ID Status Reason Start Date Expiration Date V isits Requested Visits Authorized [id number] Closed Specialty Services Required 07/10/2024 07/10/2025 1 1 Encounter Details Date Type Department Care Team (Late st Contact Info) Description 09/29/2024 3:00 PM EST Office Visit [facility] Cardiology [facility] [address] [facility] [address] [place] [phone] Jese Kidd MD [address] [place] [address],[address] [id number] PTSD (post-traumatic stress disorder) (Primary Dx); Palpitations; PVC's (premature ventricular contractions) Social History Tobacco Use Types Packs/Day Years Used Date Smoking Tobacco: Never Smokeless Tobacco: Never Alcohol Use Standard Drinks/Week Comments No 0 (1 standard drink = 0.6 oz pur e alcohol) Comments Unknown Sex and Gender Information Value Date Recorded Sex Assigned at Not on file Legal Sex Female 11:38 PM EST Gender Identity Not on file Sexual Orientation Not on file documented as of this encounter Last Filed Vital Signs Vital Sign Reading Time Taken Comments Blood Pressure 126/98 09/29/2024 3:02 PM EST Pulse 72 09/29/2024 3:02 PM EST Temperature - - Respiratory Rate - - Oxygen Saturation 96% 09/29/2024 3:02 PM EST Inhaled Oxygen Concentration - - Weight 81.6 kg (180 lb) 09/29/2024 3:02 PM EST Height 162.6 cm (5' 4 ) 09/29/2024 3:02 PM EST Body Mass Index 30.9 09/29/2024 3:02 PM EST documented in this encounter Ordered Prescriptions Prescription Sig Dispense Quantity Refills Last Filled Start Date End Date metoprolol succinate (TOPROL-XL) 25 mg 24 hr tabletIndications: Palpitations Take 1 tablet (25 mg total) by mouth 1 (one) time each day. Do not crush or chew. 90 each 3 09/29/2024 09/29/2025 documented in this encounter Progress Notes * Jese Kidd MD - 09/29/2024 3:00 PM ESTAssociated Problem(s): Palpitations Bothersome but not dangerous. Likely due to excessive adrenergic stimulation resulting in sinus tachycardia and premature ventricular beats. We discussed the pros and cons of pharmacologic therapy. Due to the intensity of her symptoms I will provide a trial of low-dose metoprolol. Behavioral effects including relaxation techniques have been reviewed. Orders: Ambulatory referral to Cardiology ECG 12 lead metoprolol succinate (TOPROL-XL) 25 mg 24 hr tablet; Take 1 tablet (25 mg total) by mouth 1 (one) time each day. Do not crush or chew. * Jese Kidd MD - 09/29/2024 3:00 PM ESTAssociated Problem(s): PTSD (post- traumatic stress disorder) * Jese Kidd MD - 09/29/2024 3:00 PM ESTAssociated Problem(s): PVC's (premature ventricular contractions) * Jese Kidd MD - 09/29/2024 3:00 PM EST PCP: Gaudencio Ballard MD History of Present Illness The patient is a 59-year-old female who presents for evaluation of heart palpitations. She experienced a sudden onset of severe heart palpitations during the summer, which were accompanied by shortness of breath. The palpitations were characterized by an irregular rhythm and intermittent strong extra beats, causing mild chest tightness and breathlessness. This episode was particularly distressing as it was her first experience with such symptoms. She sought emergency care at [facility], where blood tests and an EKG were performed. She was subsequently referred to a supervisor inspection room on [facility]. Despite two attempts to use a heart monitor, it malfunctioned both times. A 24- hour Holter monitor was also unsuccessful due to technical issues. She was then referred to [facility] for further evaluation. An echocardiogram conducted at [facility] revealed normal results. She continues to experience minor palpitations intermittently, even while at rest, which are so strong that she has to grasp for air. She does not report any respiratory or chest discomfort during physical activity, such as walking or climbing stairs. She does not have a history of hypertension and reports overall good health. She experiences these palpitations approximately 3 to 4 times permonth, lasting throughout the day, and occurring unexpectedly. She is currently undergoing menopause and experiencing hot flashes. She was previously prescribed an estradiol patch but discontinued its use due to a rash. She had been on estrogen therapy for several years but stopped after developing breast lumps. Supplemental Information She maintains high water intake due to kidney issues. ALLERGIES The patient has had an allergic reaction to ESTRADIOL PATCH, which caused a rash. ACTIVE MEDICATIONS: Outpatient Medications Marked as Taking for the 09/29/24 encounter (Office Visit) with Jese Kidd MD Medication Sig Dispense Refill albuterol 2.5 mg /3 mL (0.083 %) nebulizer solution INHALE THE CONTENTS OF 1 VIAL VIA NEBULIZER EVERY 4 HOURS NEEDED FOR WHEEZING albuterol HFA (PROAIR HFA ; PROVENTIL HFA ; VENTOLIN HFA) 90 mcg/actuation inhaler Inhale 2 Puffs into the lungs every 4 hours as needed for Cough or Wheezing. alpha lipoic acid 600 mg capsule Take 1 Cap by mouth daily. amitriptyline (ELAVIL) 10 mg tablet Take by mouth at bedtime. betamethasone, augmented, (DIPROLENE-AF) 0.05 % cream Apply small amount twice daily to affected area. diclofenac (Voltaren Arthritis Pain) 1 % topical gel Place 1 g onto the skin daily. fluticasone propionate (FLONASE) 50 mcg/actuation nasal spray SHAKE LIQUID AND USE 2 SPRAYS IN EACHNOSTRIL DAILY gabapentin (NEURONTIN) 100 mg capsule TAKE 1 CAPSULE BY MOUTH AT BEDTIME ibuprofen (ADVIL,MOTRIN) 600 mg tablet TAKE 1 TABLET BY MOUTH DAILY NEEDED FOR PAIN LORazepam (ATIVAN) 0.5 mg tablet Take 1 tablet (0.5 mg total) by mouth every 6 (six) hours if needed for anxiety. Max Daily Amount: 2 mg magnesium, amino acid chelate, 133 mg tablet Take 1 tablet (133 mg total) by mouth 2 (two) times a day. metroNIDAZOLE (METROCREAM) 0.75 % cream Apply topically 2 (two) times a day. MULTIVITAMIN ORAL Take by mouth. omeprazole (PriLOSEC) [address] capsule Take 1 Cap by mouth 2 times daily (before meals). pantoprazole (PROTONIX) 40 mg EC tablet Take 1 tablet (40 mg total) by mouth 1 (one) time each day before breakfast. Do not crush, chew, or split. pyridoxine (B-6) 100 mg tablet Take 1 tablet (100 mg total) by mouth 1 (one) time each day. tacrolimus (PROTOPIC) 0.03 % ointment Apply topically 2 (two) times a day. TURMERIC ORAL Take 400 mg by mouth. venlafaxine XR (EFFEXOR-XR) 150 mg 24 hr capsule Take 1 capsule (150 mg total) by mouth 1 (one) time each day. Do not crush or chew. PAST MEDICAL HISTORY: Patient Active Problem List Diagnosis Date Noted Date Diagnosed PVC's (premature ventricular contractions) 09/29/2024 Palpitations 09/28/2024 Fibromyalgia 05/29/2017 Onset ~ 2013 Gabapentin and Lyrica caused headaches Cymbalta caused nausea Cystocele, unspecified 06/08/2016 Rectocele 06/08/2016 Backache 05/03/201404/01-mri Small annular tear L5-S1. Epidural lipomatosis L5-S1 and sacral canal. Bipolar 2 disorder (CMS/HCC) 06/10/2013 PTSD (post-traumatic stress disorder) 06/10/2013 Depression 09/05/2011 Zoloft and wellbutrin not tolerated Seeing therapist Calculus of kidney 11/20/2010 Asthma 06/24/2008 Abdominal pain, epigastric 01/20/200701/[address] cornejo negative 11/27- ct abd Bilateral nonobstructing renal calculi. Iron deficiency anemia 08/17/200508/26 42 hct Resolved Problems No resolved problems to display. ALLERGIES: Allergies Allergen Reactions Latex Other Reaction(s): Rash/Dermatitis Tramadol Headache Vomiting,nausea,shaking FAMILY HISTORY: Family History Problem Relation Name Age of Onset Hypertension Mother Blindness Neg Hx Cataracts Neg Hx Glaucoma Neg Hx Macular degeneration Neg Hx Strabismus Neg Hx Breast cancer Neg Hx Ovarian cancer Neg Hx Colon cancer Neg Hx Uterine cancer Neg Hx SOCIAL HISTORY: Social History Tobacco Use Smoking status: Never Smokeless tobacco: Never Substance Use Topics Alcohol use: No REVIEW OF SYSTEMS: ROS PHYSICAL EXAM: Vitals: 09/29/24 1502 BP: (!) 126/98 BP Location: Left arm Patient Position: Sitting BP Cuff Size: Adult Pulse: 72 SpO2: 96% Weight: 81.6 kg (180 lb) Height: 1.626 m (64 ) APPEARANCE: Alert and in no acute distress, well-developed, well-nourished. EYES: PERRL, conjunctiva and sclera normal EARS: External ears normal. NOSE/SINUS: Nares normal. Septum midline. Mucosa normal. No drainage or sinus tenderness. MOUTH/THROAT: no erythema or exudates NECK: JVP less then 8cm H2O, No bruits., Neck supple, no adenopathy or mass HEART: RRR with normal S1 and S2, no murmurs, no gallops, no JVD appreciated CHEST: non-tender LUNG: clear to auscultation ABDOMEN: Bowel sounds normoactive, no bruits, soft, non-tender, without organomegaly or palpable masses EXTREMITIES: Extremities warm and well perfused without clubbing, cyanosis, or edema NEURO: Awake, alert and oriented x 3 and Normal gait SKIN: Skin color, texture, turgor normal. No rashes or lesions. EKG: Normal TESTING: Holter from [place] reviewed. NSR with mean HR 93, interm sinus tach, infreq APC's and PVC's. Sx of palpitations correlate with sinus tach and PVC's. ASSESSMENT/PLAN: Assessment & Plan Palpitations Bothersome but not dangerous. Likely due to excessive adrenergic stimulation resulting in sinus tachycardia and premature ventricular beats. We discussed the pros and cons of pharmacologic therapy. Due to the intensity of her symptoms I will provide a trial of low-dose metoprolol. Behavioral effects including relaxation techniques have been reviewed. Orders: Ambulatory referral to Cardiology ECG 12 lead metoprolol succinate (TOPROL-XL) 25 mg 24 hr tablet; Take 1 tablet (25 mg total) by mouth 1 (one) time each day. Do not crush or chew. PTSD (post-traumatic stress disorder) PVC's (premature ventricular contractions) Assessment & Plan 1. Cardiac palpitations. Her circulatory system appears to be functioning adequately, as evidenced by normal echocardiogram and electrocardiogram results. There is no indication of organic or structural cardiac disease. Her blood pressure is slightly elevated today, but it is not a cause for concern. A prescription for metoprolol 25 mg, to be taken once daily in the morning, will be provided. The potential side effects of this medication, including fatigue and lightheadedness, have been discussed. She has been advised to maintain adequate hydration, which can help manage palpitations. The prescription [facility] be [facility] [place]. If her blood pressure gets too low and she starts feeling very lightheaded and faint, in the absence of dehydration, we may need to reconsider beta nikolas Rx. I encouraged her tostay in touch with us through [facility]. We will see her again in the office should the need arise. 2. Menopause. She reports experiencing hot flashes and other menopausal symptoms, which may be contributing to her palpitations. She was previously on estradiol but discontinued it due to a rash. A hormonal approach to managing her symptoms will be discussed with her primary care provider. I have obtained verbal consent from Janna Hooper prior to the recording. I have advised Janna Hooper that she may refuse the recording and require the recording to be turned off at any time during this encounter. The [facility] team will continue to co-manage this patient following the plan of care as established by my initial visit and as per AHA guidelines for ongoing management and surveillance of 1. PTSD (post-traumatic stress disorder) 2. Palpitations 3. PVC's (premature ventricular contractions) documented in this encounter Plan of Treatment Not on file documented as of this encounter Procedures Procedure Name Priority Date/Time Associated Diagnosis Comments ECG 12-LEAD Routine 09/29/2024 3:25 PM EST Palpitations documented in this encounter Results * ECG 12 lead (09/29/2024 3:25 PM EST) Ventricular Rate ECG 72 BPM GEMUSE Atrial Rate 72 BPM GEMUSE P-R Interval 148 ms GEMUSE QRS Duration 70 ms GEMUSE Q-T Interval 392 ms GEMUSE QTc 429 ms GEMUSE P Wave Yolyn 37 degrees GEMUSE R Yolyn 16 degrees GEMUSE T Yolyn 35 degrees GEMUSE ECG Interpretation Normal sinus rhythm Normal ECG When compared with ECG of 02-SEP-2017 15:42, No significant change was found Confirmed by JESE KIDD ([id number]) on 09/29/2024 5:09:14 PM GEMUSE 09/29/2024 3:25 PM EST 09/29/2024 5:09 PM EST us Jese Kidd MD ECG ORDERABLES Final Result GEMUSE documented in this encounter Visit Diagnoses Diagnosis PTSD (post-traumatic stress disorder)- Primary Posttraumatic stress disorder Palpitations PVC's (premature ventricular contractions) Other premature beats documented in this encounter Discontinued Medications Medication Sig Discontinue Reason Start Date End Da te estradioL (VIVELLE-DOT) 0.1 mg/24 hr Therapy completed 09/29/2024 mupirocin (BACTROBAN) 2 % ointment Apply twice a day to nose x 1 week Therapy completed 09/29/2024 documented as of this encounter Historical Medications * This list may reflect changes made after this encounter. metroNIDAZOLE (METROCREAM) 0.75 % cream Apply topically 2 (two) times a day. venlafaxine XR (EFFEXOR-XR) 150 mg 24 hr capsule Take 1 capsule (150 mg total) by mouth 1 (one) time each day. Do not crush or chew. TURMERIC ORAL Take 400 mg by mouth. tacrolimus (PROTOPIC) 0.03 % ointment Apply topically 2 (two) times a day. pyridoxine (B-6) 100 mg tablet Take 1 tablet (100 mg total) by mouth 1 (one) time each day. pantoprazole (PROTONIX) 40 mg EC tablet Take 1 tablet (40 mg total) by mouth 1 (one) time each day before breakfast. Do not crush, chew, or split. magnesium, amino acid chelate, 133 mg tablet Take 1 tablet (133 mg total) by mouth 2 (two) times a day. LORazepam (ATIVAN) 0.5 mg tablet Take 1 tablet (0.5 mg total) by mouth every 6 (six) hours if needed for anxiety. Max Daily Amount: 2 mg amitriptyline (ELAVIL) 10 mg tablet Take by mouth at bedtime. added in this encounter Orders Outpatient Referral Count Last Ordered Date Fir st Ordered Date AMB REFERRAL TO CARDIOLOGY 1 09/29/2024 documented in this encounter Care Teams Lookback Coordinator Relationship Specialty Start Date End Date Gaudencio Ballard MD [address] [place] [address] PCP - General Internal Medicine 09/16/19 documented as of this encounter
--- OUTSIDE RECORDS SUMMARY | 2024-10-09 12:36 | XMS_ITS | Referral Summary ---
Author Organization [facility] Address [address] [place] [address] Care Team Providers Care Marine Meteorologist Name Role Phone Margie Pham MD Primary Care Provider [phone] Allergies Active Allergy Reactions Criticality Noted Date [...] on file Medical Devices Implanted Type Area Creative Art Director Device Identifier Shelf Expiration Date Model / Serial / Lot Mesh Pelvic Prolapse Polypropylene Y Shape [id number] [facility] [id number] - [id number] Implanted:Qty: 1 on 10/13/2018 by Liat Sheikh MD at [facility] Mesh N/A: Vagina COLOPLAST 05/15/2021 [id number] / [id number] / [id number] [facility] Advance Directives Documents on File Type Date Recorded Patient Print And Pattern Designer Expl anation Health Care Proxy 03/07/2021 * Full Code (Latest Code Status on File) Date Activated Date Inactivated Comments 10/13/2018 5:38 AM 10/14/2018 4:15 PM Healthcare Agents on File Name Relationship Healthcare Agent Relationship Communication Evan Hooper Spouse Healthcare Proxy - Primar y Lisa Biggs Daughter Healthcare Prox y - Alternative Care Teams Marine Meteorologist Relationship Specialty Start Date End Date Margie Pham MD [address] PRIMARY CARE / [place] [address] PCP - General 06/18/18
--- OUTSIDE RECORDS SUMMARY | 2024-10-09 12:36 | XMS_ITS | Clinical Summary ---
Author Organization [facility] Address [address] [place] [address] Phone Care Team Providers Care Scratch Polisher Name Role Phone Gaudencio Ballard MD Primary Care Provider [phone] Allergies Active Allergy Reactions Criticality Noted Date Comments Latex 12/17/2005 Other Reaction(s): Rash/Dermatitis Tramadol Headache 03/25/2014 Vomiting,nausea,shaking Medications gabapentin (NEURONTIN) 100 mg capsule TAKE 1 CAPSULE BY MOUTH AT BEDTIME Active diclofenac (Voltaren Arthritis Pain) 1 % [...] Take 1 Cap by mouth daily. Active betamethasone, augmented, (DIPROLENE-AF) 0.05 % cream [...] meals). Active MULTIVITAMIN ORAL Take by mouth. Active amitriptyline (ELAVIL) 10 mg tablet Take by mouth at bedtime. Active LORazepam (ATIVAN) 0.5 mg tablet Take 1 tablet (0.5 mg total) by mouth every 6 (six) hours if needed for anxiety. Max Daily Amount: 2 mg Active magnesium, amino acid chelate, 133 mg tablet Take 1 tablet (133 mg total) by mouth 2 (two) times a day. Active pantoprazole (PROTONIX) 40 mg EC tablet Take 1 tablet (40 mg total) by mouth 1 (one) time each day before breakfast. Do not crush, chew, or split. Active pyridoxine (B-6) 100 mg tablet Take 1 tablet (100 mg total) by mouth 1 (one) time each day. Active tacrolimus (PROTOPIC) 0.03 % ointment Apply topically 2 (two) times a day. Active TURMERIC ORAL Take 400 mg by mouth. Active venlafaxine XR (EFFEXOR-XR) 150 mg 24 hr capsule Take 1 capsule (150 mg total) by mouth 1 (one) time each day. Do not crush or chew. Active metroNIDAZOLE (METROCREAM) 0.75 % cream Apply topically 2 (two) times a day. Active metoprolol succinate (TOPROL-XL) 25 mg 24 hr tabletIndicatio ns:Palpitations Take 1 tablet (25 mg total) by mouth 1 (one) time each day. Do not crush or chew. 90 each 3 5 09/29/19 26 Active estradioL (VIVELLE-DOT) 0.1 mg/24 hr 09/29/19 25 Discontinu ed(Therapy completed) mupirocin (BACTROBAN) 2 % ointment Apply twice a day to nose x 1 week 09/29/19 25 Discontinu ed(Therapy completed) Active Problems Problem Noted Date Diagnosed Date PVC's (premature ventricular contractions) 09/29 Assessment & Plan (09/29/2024 5:07 PM EST): Palpitations 09/28/2024 Assessment & Plan (09/29/2024 5:07 PM EST): Bothersome but not dangerous. Likely due to [...] each day. Do not crush or chew. Fibromyalgia 05/29/2017 Overview (07/21/2024): Onset ~ 2013 Gabapentin and Lyrica caused headaches Cymbalta caused nausea Cystocele, unspecified 06/08/2016 Rectocele 06/08/2016 Backache 05/03/2014 Overview (07/21/2024): 04/01-mri Small annular tear L5-S1. Epidural lipomatosis L5-S1 and sacral canal. Bipolar 2 disorder 06/10/2013 PTSD (post-traumatic stress disorder) 06/10/2013 Assessment & Plan (09/29/2024 5:07 PM EST): Depression 09/05/2011 Overview (07/21/2024): Zoloft and wellbutrin not tolerated Seeing therapist Calculus of kidney 11/20/2010 Asthma 06/24/2008 Abdominal pain, epigastric 01/20/2007 Overview (07/21/2024): 01/[address] cornejo negative 11/27- ct abd Bilateral nonobstructing renal calculi. Iron deficiency anemia 08/17/2005 Overview (07/21/2024): 08/26 42 hct Encounters Date Type Department Care Team Description 09/29/2024 3:00 PM EST Office Visit [facility] [address] [facility] [address] [place] [address] Jese Kidd MD PTSD (post-traumatic stress disorder) (Primary Dx); Palpitations; PVC's (premature ventricular contractions) 07/15/[address] [facility] [address] [place] [address] Gaudencio Ballard MD 07/15/[address] [facility] [address] [place] [address] Gaudencio Ballard MD 07/10/[address] [facility] [address] [place] [address] Gaudencio Ballard MD Referral (Received routine paper [...] Surgery Date Site/Laterality Comments ESOPHAGOGASTRODUODENOSCOPY 01/21/07 PROCEDURE: DE ESOPHAGOGASTRODUODENOSCOPY TRANSORAL DIAGNOSTIC; COMMENT: Normal PARTIAL HYSTERECTOMY 03/2010 PROCEDURE: DE SUPRACERVICAL ABDL HYSTER W/WO RMVL TUBE OVARY; COMMENT: Da Dragan TLH with sacropexy, mesh urethral support OTHER SURGICAL HISTORY PROCEDURE: FEMALE SLING SYS W/WO MATRL OTHER SURGICAL HISTORY PROCEDURE: DE RMVL PROSTC MATRL/MESH ABDL WALL FOR INFECTION BREAST SURGERY 2011 Right PROCEDURE: DE UNLISTED PROCEDURE BREAST; COMMENT: rt cyst removed BREAST BIOPSY 2008 Right PROCEDURE: BX BREAST; PERC NEEDLE CORE W/IMAG GUID; COMMENT: cyst asp FINE NEEDLE ASPIRATION Left PROCEDURE: FINE NDLE ASPRTN W/IMAGING GUIDANCE; COMMENT: 4 YRS. AGO-CYST Medical History Medical History Date Comments Anemia, unspecified DX:Anemia, u nspecified Unspecified asthma(493.90) DX:Un specified asthma(493.90) Esophageal reflux DX:Esophageal reflux Shoulder pain DX:Shoulder pain ; COMMENT: [facility] Family History Medical History Relation [...] Sexual Orientation Not on file Obstetrics History Last Filed Vital Signs Vital Sign Reading [...] Mass Index 30.9 09/29/2024 3:02 PM EST Plan of Treatment Health Maintenance Due Date Last Done Comments COVID-19 Vaccine (#1) 1972 Hepatitis B Vaccines (1 of 3 - 19+ 3-dose series) 1986 Zoster Vaccines (1 of 2) 2017 Pneumococcal Vaccine: 50+ Years (3 of 3 - PCV20 or PCV21) 08/20/2021 08/20/2016, 04/17/2016 Pneumococcal Vaccine: Pediatrics (0 to 5 Years) and At-Risk Patients (6 to 64 Years) (3 of 3 - PCV20 or PCV21) 08/20/2021 08/20/2016, 04/17/2016 Breast Cancer Screening 09/16/2021 09/16/19 20, 09/12/2018, 09/11/2017 Colorectal Cancer Screening: Colonoscopy 07/22/2022 Depression Screening 07/22/2022 HIV Screening 07/22/2022 Social Influencers of Health Screening 07/22/2022 Influenza Vaccine (#1) 2024 DTaP,Tdap,and Td Vaccines (5 - Td or Tdap) 01/16/2029 01/16/2019, 06/26/2012, 08/27/2003, Additional history exists Hepatitis C Screening Completed 06/21/2008 HIB Vaccines [...] patient's age to complete this topic Meningococcal B Vacine Aged Out No lo nger eligible based on patient's age to complete this topic RSV Immunization Patients Under 20 months Aged Out No longer eligible based on patient's age to complete this topic Varicella Vaccines Aged Out No longer eligible based on patient's age to complete this topic Procedures Procedure Name Priority Date/Time Associated Diagnosis Comments ECG 12-LEAD Routine 09/29/2024 3:25 PM EST Palpitations SCR MAMMO BI INCL CAD Routine 09/16/2019 11:31 AM EST Encounter for screening mammogram for malignant neoplasm of breast HEPATITIS C SCREENING Routine 06/21/2008 from Last 3 Months or Most Recently Relevant to Health Maintenance Results * ECG 12 lead (09/29/2024 3:25 PM EST) Ventricular Rate ECG 72 BPM GEMUSE Atrial Rate 72 BPM GEMUSE P-R Interval 148 ms GEMUSE QRS Duration 70 ms GEMUSE Q-T Interval 392 ms GEMUSE QTc 429 ms GEMUSE P Wave [place] 37 degrees GEMUSE R [place] 16 degrees GEMUSE T [place] 35 degrees GEMUSE ECG Interpretation Normal sinus rhythm Normal ECG When compared with ECG of 02-SEP-2017 15:42, No significant change was found Confirmed by JESE KIDD ([id number]) on 09/29/2024 5:09:14 PM GEMUSE 09/29/2024 3:25 PM EST 09/29/2024 5:09 PM EST Jese Kidd MD ECG ORDERABLES Final Result GEMUSE * SCR MAMMO BI INCL CAD (09/16/2019 [...] cancer risk category Low (<15%) Procedure Note Nataly Montejo - 08/07/2022 This is a summary report. [...] (<15%) Gaudencio Ballard MD IMG XR PROCEDURES Final Result * Hepatitis C Screening (06/21/2008) Hepatitis C Screening Abstracted Historical Provider HEALTH MAINTENANCE Final Result from Last 3 Months or Most Recently Relevant to Health Maintenance Insurance [facility] MEDICAID [place] [id number] Care Teams Scratch Polisher Relationship Specialty Start Date End Date Gaudencio Ballard MD [address] [facility] [place] [phone] PCP - General Internal Medicine 09/16/19
--- OUTSIDE RECORDS SUMMARY | 2024-10-09 12:36 | XMS_ITS ---
Author Organization [facility] Address [address] [place] [address] Care Team Providers Care Press Tender Long Goods Name Role Phone Elio MATHIS, [facility] Primary Care Provider Keith Shaver Unavailable [phone] Allergies Allergen (clinical drug ingredient) Drug/Non Drug [...] 04/16/2023 Encounters Encounter Location Date Provider [facility] [address] [place] [phone] 04/16/2023 Keith Jc Plantar fascial fibromatosis M72.2 [...] * Danyel MALIKOB:04/[birth year] (57 yo F)Acc No.[id number]:04/16/2023 Progress Notes Patient:?Janna Malik Provider:?Keith Jc DPM :1965???Age:57 Y???Sex:Female D ate:04/16/2023 Address:[address] [place], [place] [address] Pcp:Gaudencio Ballard MD Subjective: * Chief Complaints: [...] DPM Date:? 023 Generated for Sofi ayoub/Keren/Rhea on:?10/09/2024 12:36 PM EST History and Physical Notes * [...]
--- OUTSIDE RECORDS SUMMARY | 2024-10-09 12:36 | XMS_ITS | Clinical Summary ---
Author Organization [facility] Address [address] [place] [address] Care Team Providers Care Plate Mounter Name Role Phone Margie Pham MD Primary Care Provider [phone] Allergies Active Allergy Reactions Criticality Noted Date [...] age to complete this topic Care Teams Plate Mounter Relationship Specialty Start Date End Date Margie Pham MD PCP - General Internal Medicine 10/25/17
--- OUTSIDE RECORDS SUMMARY | 2024-10-09 12:36 | XMS_ITS | Clinical Summary ---
Author Organization [facility] Address [address] [place] [address] Care Team Providers Care Crutch Maker Name Role Phone Margie Pham MD Primary Care Provider [phone] Allergies Active Allergy Reactions Criticality Noted Date [...] (1 of 2) 2017 Pneumococcal Vaccine: 50+ Ye ars (3 of 3 - PCV20 or PCV21) 08/20/2021 08/20/2016, 04/17/2016 Mammogram 09/16/2021 09/16/2019 Influenza Vaccine (#1) 2024 Alcohol/Substance Use Screening 08/19/2024 Depression Evaluation 08/19/2024 Social Drivers of Health Ghada ual Screening 08/19/2024 DTaP,Tdap,and Td Vaccines (3 - Td or Tdap) 01/16/2029 01/16/2019, 06/26/2012, 08/27/2003 RSV Vaccine (60+ years old a nd patients) (1 - 1-dose 75+ series) 2042 Medical Devices Implanted Type Area Cargo Worker Device Identifier Shelf Expiration Date Model / Serial / Lot Mesh Pelvic Prolapse Polypropylene Y Shape [id number] [facility] - [id number] - [id number] Implanted:Qty: 1 on 10/13/2018 by Liat Sheikh MD at [facility] Mesh N/A: Vagina COLOPLAST 05/15/2021 [id number] / [id number] Insurance [facility] Advance Directives Documents on File Type Date Recorded Patient Sld Inclusion Teacher Expl anation Health Care Proxy 03/07/2021 * Full Code (Latest Code Status on File) Date Activated Date Inactivated Comments 10/13/2018 5:38 AM 10/14/2018 4:15 PM Healthcare Agents on File Name Relationship Healthcare Agent Relationship Communication Evan Rufus Spouse Healthcare Proxy - Primar y Lisa Biggs Daughter Healthcare Prox y - Alternative Care Teams Crutch Maker Relationship Specialty Start Date End Date Margie Pham MD [address] PRIMARY CARE / [place] [address] PCP - General 06/18/18
--- OUTSIDE RECORDS SUMMARY | 2024-10-09 12:36 | XMS_ITS | Clinical Summary ---
Author Organization [facility] Facility Address [address] [place] [address] Care Team Providers Care Fruit Press Operator Name Role Phone Gaudencio Ballard MD Primary Care Provider [phone] Allergies Active Allergy Reactions Criticality Noted Date [...] [facility] [address] [address] Dania Celaya ARNP [address] [address] Health Maintenance Due Date Last [...] 06/12/2016 04/17/2016 Influenza Vaccine (#1) 2024 Insurance [facility] ONE CARE DUAL SNP ([id number]) [facility] ONE CARE DUAL SNP ([id number]) Care Teams Fruit Press Operator Relationship Specialty Start Date End Date Gaudencio Ballard MD [facility] [place] [address] PCP - General Internal Medicine 12/12/22
== END 2024-10-09 16:36 | disposition home or self-care (01) ==
PROVIDERS: PCP Internal Medicine; Visit Provider Internal Medicine Gastroenterology
DX: R14.0 Abdominal distension (gaseous) (principal)
CPT/HCPCS: 99213

== ENCOUNTER → 2024-10-09 11:28 | Outpatient (BNVA) | payer OTHER, SELFPAY | PROVIDERS: PCP Internal Medicine; Visit Provider Internal Medicine Gastroenterology | DX: R14.0 Abdominal distension (gaseous) (principal) | CPT/HCPCS: 99212 ==

== ENCOUNTER 2024-10-13 10:41 | Day surgery (SDC) | payer OTHER, SELFPAY ==
--- OUTSIDE RECORDS SUMMARY | 2024-10-09 14:28 | XMS_ITS | Clinical Summary ---
Author Organization [facility] Address [address] [place] [address] Care Team Providers Care Senior Geologist Name Role Phone Margie Pham MD Primary Care Provider [phone] Allergies Active Allergy Reactions Criticality Noted Date [...] age to complete this topic Care Teams Senior Geologist Relationship Specialty Start Date End Date Margie Pham MD PCP - General Internal Medicine 10/25/17
--- OUTSIDE RECORDS SUMMARY | 2024-10-09 14:28 | XMS_ITS | Clinical Summary ---
Author Organization [facility] Address [address] [place] [address] Care Team Providers Care District Sales Manager Name Role Phone Margie Pham MD Primary Care Provider [phone] Allergies Active Allergy Reactions Criticality Noted Date [...] series) 2042 Medical Devices Implanted Type Area Shutdown Planner Device Identifier Shelf Expiration Date Model / Serial / Lot Mesh Pelvic Prolapse Polypropylene Y Shape [id number] [facility] - [id number] - [id number] Implanted:Qty: 1 on 10/13/2018 by Liat Sheikh MD at [facility] Mesh N/A: Vagina COLOPLAST 05/15/2021 [id number] / [id number] Insurance [facility] Advance Directives Documents on File Type Date Recorded Patient Commercial Hvac Service Technician Expl anation Health Care Proxy 03/07/2021 * Full Code (Latest Code Status on File) Date Activated Date Inactivated Comments 10/13/2018 5:38 AM 10/14/2018 4:15 PM Healthcare Agents on File Name Relationship Healthcare Agent Relationship Communication Evan Rufus Spouse Healthcare Proxy - Primar y Lisa Biggs Daughter Healthcare Prox y - Alternative Care Teams District Sales Manager Relationship Specialty Start Date End Date Margie Pham MD [address] PRIMARY CARE / [place] [address] PCP - General 06/18/18
--- OUTSIDE RECORDS SUMMARY | 2024-10-09 14:28 | XMS_ITS | Clinical Summary ---
Author Organization [facility] Facility Address [address] [place] [address] Care Team Providers Care Sheltered Workshop Worker Name Role Phone Gaudencio Ballard MD Primary Care Provider [phone] Allergies Active Allergy Reactions Criticality Noted Date [...] Office Visit [facility] [address] [address] Dania Celaya ARNP [address] [address] Health Maintenance Due Date Last [...] 06/12/2016 04/17/2016 Influenza Vaccine (#1) 2024 Insurance [facility] ONE CARE DUAL SNP ([id number]) [facility] ONE CARE DUAL SNP ([id number]) Care Teams Sheltered Workshop Worker Relationship Specialty Start Date End Date Gaudencio Ballard MD [facility] [place] [address] PCP - General Internal Medicine 12/12/22
--- OUTSIDE RECORDS SUMMARY | 2024-10-09 14:28 | XMS_ITS | Referral Summary ---
Author Organization [facility] Address [address] [place] [address] Care Team Providers Care Production Broaching Machine Operator Name Role Phone Margie Pham MD Primary Care Provider Allergies Active Allergy Reactions Criticality Noted Date [...] on file Medical Devices Implanted Type Area Bakery Associate Device Identifier Shelf Expiration Date Model / Serial / Lot Mesh Pelvic Prolapse Polypropylene Y Shape [id number] [facility] - [id number] - [id number] Implanted:Qty: 1 on 10/13/2018 by Liat Sheikh MD at [facility] Mesh N/A: Vagina COLOPLAST 05/15/2021 [id number] / [id number] / [id number] Insurance [facility] Advance Directives Documents on File Type Date Recorded Patient Sales Engineer Account Manager Expl anation Health Care Proxy 03/07/2021 * Full Code (Latest Code Status on File) Date Activated Date Inactivated Comments 10/13/2018 5:38 AM 10/14/2018 4:15 PM Healthcare Agents on File Name Relationship Healthcare Agent Relationship Communication Evan Hooper Spouse Healthcare Proxy - Primar y Lisa Biggs Daughter Healthcare Prox y - Alternative Care Teams Production Broaching Machine Operator Relationship Specialty Start Date End Date Margie Pham MD [address] PRIMARY CARE / [place] [address] PCP - General 06/18/18
--- OUTSIDE RECORDS SUMMARY | 2024-10-09 14:28 | XMS_ITS | Encounter Summary ---
Author Organization [facility] Address [address] [place] [address] Care Team Providers Care Emergency Specialist Name Role Phone Gaudencio Ballard MD Primary Care Provider [phone] Reason for Visit * Reason Comments Initial Assessment * Consultation (Routine) - Closed Specialty Diagnoses / Procedures Referred By Annika yan Referred To Contact Cardiology Diagnoses Palpitations Gaudencio Ballard MD [address] [place] [address] Phone: tel: fax: [facility] [address] [facility] [address] [place] [address] Phone: tel: fax: Referral ID Status Reason Start Date Expiration Date V isits Requested Visits Authorized [id number] Closed Specialty Services Required 07/10/2024 07/10/2025 1 1 Encounter Details Date Type Department Care Team (Late st Contact Info) Description 09/29/2024 3:00 PM EST Office Visit [facility] [address] [facility] [address] [place] [address] Jese Kidd MD [address] [place] [address],[address] [id number] PTSD (post-traumatic stress disorder) (Primary Dx); Palpitations; [...] such symptoms. She sought emergency care at [facility], where blood tests and an EKG were performed. She was subsequently referred to a brim greaser operator on [facility]. Despite two attempts to use a heart monitor, it malfunctioned both times. A 24- hour Holter monitor was also unsuccessful due to technical issues. She was then referred to [facility] for further evaluation. An echocardiogram conducted at [facility] revealed normal results. She continues to experience [...] or lesions. EKG: Normal TESTING: Holter from [place] reviewed. NSR with mean HR 93, interm [...] The prescription will be sent to[facility] [place]. If her blood pressure gets too low and she starts feeling very lightheaded and faint, in the absence of dehydration, we may need to reconsider beta nikolas Rx. I encouraged her tostay in touch with us through [facility]. We will see her again in the [...] GEMUSE QTc 429 ms GEMUSE P Wave [place] 37 degrees GEMUSE R [place] 16 degrees GEMUSE T [place] 35 degrees GEMUSE ECG Interpretation Normal sinus [...] 09/29/2024 documented in this encounter Care Teams Emergency Specialist Relationship Specialty Start Date End Date Gaudencio Ballard MD [address] [place] [address] PCP - General Internal Medicine 09/16/19 documented as of this encounter
--- OUTSIDE RECORDS SUMMARY | 2024-10-09 14:29 | XMS_ITS | Clinical Summary ---
Author Organization [facility] Address [address] [place] [address] Phone Care Team Providers Care Hand Scudder Name Role Phone Gaudencio Ballard MD Primary Care Provider [phone] Allergies Active Allergy Reactions Criticality Noted Date [...] [facility] [address] [facility] [address] [place] [address] Jese Kidd MD PTSD (post-traumatic stress disorder) (Primary Dx); Palpitations; PVC's (premature ventricular contractions) 07/15/[address] [facility] [address] [place] [address] Gaudencio Ballard MD 07/15/[address] [facility] [address] [place] [address] Gaudencio Ballard MD 07/10/[address] [facility] [address] [place] [address] Gaudencio Ballard MD Referral (Received [...] Surgery Date Site/Laterality Comments ESOPHAGOGASTRODUODENOSCOPY 01/21/07 PROCEDURE: DC ESOPHAGOGASTRODUODENOSCOPY TRANSORAL DIAGNOSTIC; COMMENT: Normal PARTIAL HYSTERECTOMY 03/2010 PROCEDURE: DC SUPRACERVICAL ABDL HYSTER W/WO RMVL TUBE OVARY; COMMENT: Da Dragan TLH with sacropexy, mesh urethral support OTHER SURGICAL HISTORY PROCEDURE: FEMALE SLING SYS W/WO MATRL OTHER SURGICAL HISTORY PROCEDURE: DC RMVL PROSTC MATRL/MESH ABDL WALL FOR INFECTION BREAST SURGERY 2011 Right PROCEDURE: DC UNLISTED PROCEDURE BREAST; COMMENT: rt cyst removed [...] GEMUSE QTc 429 ms GEMUSE P Wave [place] 37 degrees GEMUSE R [place] 16 degrees GEMUSE T [place] 35 degrees GEMUSE ECG Interpretation Normal sinus [...] Most Recently Relevant to Health Maintenance Insurance [facility] MEDICAID [place] [id number] Care Teams Hand Scudder Relationship Specialty Start Date End Date Gaudencio Ballard MD [address] [facility] [place] [phone] PCP - General Internal Medicine 09/16/19
--- NOTE | 2024-10-12 11:56 | HO.ANESPROP2 ---
Documented by User: Jeanette Dumont NP 10/12/24 11:57 HPI - Anesthesia Eval Consult details Narrative: 59yo F for Upper Endoscopy PMFSH Active Problems Active Problems: All Active Problems Perioral dermatitis (Acute) URI (upper respiratory infection) (Acute) Herpes labialis (Acute) Lesion of lip (Acute) Pre-diabetes (Acute) Allergic reaction (Acute) Sacroiliac joint pain (Acute) Bloating (Acute) Hospital discharge follow-up (Acute) Bulging of lumbar intervertebral disc (Acute) Muscle spasm (Acute) Chronic pain syndrome (Acute) Sacroiliitis (Acute) Lumbar radiculopathy (Acute) Lumbar spondylosis (Acute) Asthma, moderate (Acute) Eczema (Acute) Lumbar degenerative disc disease (Acute) Bilateral knee pain (Acute) Fatigue (Acute) Lactose intolerance (Acute) Abnormal mammogram of left breast (Acute) Blurring of vision (Acute) Conjunctivitis (Acute) Iliopsoas bursitis (Acute) Achilles tendinitis of right lower extremity (Acute) Hypercalciuria (Acute) Witnessed apneic spells (Acute) Snoring (Acute) Daytime sleepiness (Acute) Urine incontinence (Acute) Hiatal hernia (Acute) GERD (gastroesophageal reflux disease) (Acute) Sleep apnea (Acute) Renal cyst, acquired, left (Acute) Bilateral kidney stones (Acute) Bilateral mastodynia (Acute) Strep throat (Acute) Anxiety, generalized (Acute) Breast lump on left side at 10 o'clock position (Acute) Neck pain (Acute) Muscle strain (Acute) Shoulder pain, right (Acute) Recurrent boils (Acute) Renal calculi (Acute) Nocturia (Acute) Hand injury (Acute) Microscopic hematuria (Acute) Abnormal mammogram (Acute) Breast calcification, left (Acute) Weight loss (Acute) Nausea (Acute) Abdominal pain (Acute) Easy bruising (Chronic) Blood in urine (Acute) Renal colic on left side (Acute) Epigastric abdominal pain (Acute) Perimenopausal symptoms (Acute) Urinary retention (Acute) Pelvic pain (Acute) Bladder disorder (Acute) Lumbar pain (Acute) Encounter for surveillance of transdermal patch hormonal contraceptive device (Acute) PVC (premature ventricular contraction) (Acute) PAC (premature atrial contraction) (Acute) Neck muscle spasm (Acute) Chlamydia contact, treated (Acute) Weight gain due to medication (Acute) Weight gain (Acute) IBS (irritable colon syndrome) (Acute) Breast screening (Acute) Colon cancer screening (Acute) Routine gynecological examination (Acute) Heart palpitations (Acute) Encounter for general adult medical examination with abnormal findings (Acute) Breast pain in female (Acute) Lateral epicondylitis of both elbows (Acute) Polyarthralgia (Acute) Lipid disorder (Acute) Change in mole (Acute) Strain of cervical portion of both trapezius muscles (Acute) Myalgia (Acute) Hot flashes (Acute) Vitamin D deficiency (Acute) Fibromyalgia (Acute) Osteoarthritis (Acute) Chronic GERD (Acute) Depression, major, recurrent (Acute) Past Medical History Medical History (Updated 10/13/24 @ 11:11 by Mi Dolan RN) Kidney stones Kidney stones, calcium oxalate Perioral dermatitis Muscle spasm Microscopic hematuria Hot flashes Vitamin D deficiency Fibromyalgia Osteoarthritis Chronic GERD Depression, major, recurrent Family History Family History Father No problems noted. Mother Asthma Dementia Alzheimer's disease Paternal Aunt Lung cancer Breast cancer, Onset Age: 62 Brother No problems noted. Brother No problems noted. Brother No problems noted. Sister No problems noted. Sister No problems noted. Sister No problems noted. Paternal Aunt Breast cancer, Onset Age: 70 Other Mental health disorder Surgical History Surgical History History of esophagogastroduodenoscopy (EGD) H/O colonoscopy History of hysterectomy History of surgery History of Problems with Anesthesia: No Social History Social History Household Members: Significant Other and Children Household Members Other:: 2 children Housing: House Are you a primary healthcare administration intern to a significant other at home: No Do you presently have visiting nurse or other home services: No Alcohol intake: never Patient Tobacco Use Status: Never used Tobacco e-Cigarette/Vaping Use: Never Used Use of substances other than those prescribed or required for medical reasons: No Are you DNR?: No Advance Directives: No Advance Directives Information Provided: Yes Nutrition Risks: No Nutritional Risk Patient : No service: No Current occupational status: unemployed and disabled Cognitive needs: No Hearing needs: No Vision needs: Yes Meds Allergies Allergy/AdvReac Type Severity Reaction Status Date / Time cat dander [cats] Allergy Intermediate Itchy Eyes Verified 10/09/24 11:32 and burning cigarette smoke Allergy Intermediate migraines Verified 10/09/24 11:32 latex Allergy Intermediate Rash Verified 10/09/24 11:32 trazodone Allergy Intermediate palpitation Verified 10/09/24 11:32 s Penicillins AdvReac Intermediate Abdominal Verified 10/09/24 11:32 Pain tamsulosin Allergy Severe Dizziness Uncoded 10/09/24 11:32 Home Medications ?Medication ?Instructions ?Recorded ?Confirmed ?Last Taken ?Type magnesium 250 mg tablet 250 mg PO BID 11/30/20 09/17/24 Unknown History turmeric 400 mg capsule mg PO 08/20/23 09/17/24 Unknown History amitriptyline 10 mg tablet 10 mg PO BEDTIME 06/08/24 09/17/24 Unknown History lorazepam 0.5 mg tablet mg PO DAILY 06/08/24 09/17/24 Unknown History tacrolimus 0.03 % topical ointment topical DAILY 06/08/24 09/17/24 Unknown History doxycycline hyclate 100 mg capsule mg PO DAILY 10/09/24 Unknown History metoprolol succinate 25 mg mg PO DAILY 10/09/24 Unknown History tablet,extended release 24 hr metronidazole 0.75 % topical cream appl topical 10/09/24 Unknown History minocycline 100 mg capsule mg PO 10/09/24 Unknown History Exam Pertinent Lab Results Pertinent Lab Results: Laboratory Tests 05/12/24 09/07/24 12:05 14:20 WBC 6.8 Hgb 14.2 Hct 43.5 Plt Count 393 Sodium 140 Potassium 4.0 Chloride 109 H Carbon Dioxide 24 BUN 14 Creatinine 0.71 Narrative Narrative: Holter 08/2024 Total monitoring time 3 days. Underlying rhythm is sinus with an average rate of 90/Min. Frequent sinus tachycardia. Rare supraventricular ectopy. Rare ventricular ectopy. No significant pauses or high-grade AV blocks. Palpitations in patient diary correlates with sinus rhythm and PVCs. Assessment and Plan Assessment Anesthesia Assessment: Chart Reviewed Final Anesthetic Review History of Problems with Anesthesia: No Documented by User: Allan Handy MD 10/13/24 12:11 [facility] Past Medical History Medical History (Updated 10/13/24 @ 11:11 by Mi Dolan RN) Kidney stones Kidney stones, calcium oxalate Perioral dermatitis Muscle spasm Microscopic hematuria Hot flashes Vitamin D deficiency Fibromyalgia Osteoarthritis Chronic GERD Depression, major, recurrent Family History Family History Father No problems noted. Mother Asthma Dementia Alzheimer's disease Paternal Aunt Lung cancer Breast cancer, Onset Age: 62 Brother No problems noted. Brother No problems noted. Brother No problems noted. Sister No problems noted. Sister No problems noted. Sister No problems noted. Paternal Aunt Breast cancer, Onset Age: 70 Other Mental health disorder Family history of problems with anesthesia: No Surgical History Surgical History History of esophagogastroduodenoscopy (EGD) H/O colonoscopy History of hysterectomy History of surgery Social History Social History Household Members: Significant Other and Children Household Members Other:: 2 children Housing: House Are you a primary healthcare administration intern to a significant other at home: No Do you presently have visiting nurse or other home services: No Alcohol intake: never Patient Tobacco Use Status: Never used Tobacco e-Cigarette/Vaping Use: Never Used Use of substances other than those prescribed or required for medical reasons: No Are you DNR?: No Advance Directives: No Advance Directives Information Provided: Yes Nutrition Risks: No Nutritional Risk Patient : No service: No Current occupational status: unemployed and disabled Cognitive needs: No Hearing needs: No Vision needs: Yes Meds Allergies Allergy/AdvReac Type Severity Reaction Status Date / Time cat dander [cats] Allergy Intermediate Itchy Eyes Verified 10/09/24 11:32 and burning cigarette smoke Allergy Intermediate migraines Verified 10/09/24 11:32 latex Allergy Intermediate Rash Verified 10/09/24 11:32 trazodone Allergy Intermediate palpitation Verified 10/09/24 11:32 s Penicillins AdvReac Intermediate Abdominal Verified 10/09/24 11:32 Pain tamsulosin Allergy Severe Dizziness Uncoded 10/09/24 11:32 Home Medications ?Medication ?Instructions ?Recorded ?Confirmed ?Last Taken ?Type magnesium 250 mg tablet 250 mg PO BID 11/30/20 09/17/24 Unknown History turmeric 400 mg capsule mg PO 08/20/23 09/17/24 Unknown History amitriptyline 10 mg tablet 10 mg PO BEDTIME 06/08/24 09/17/24 Unknown History lorazepam 0.5 mg tablet mg PO DAILY 06/08/24 09/17/24 Unknown History tacrolimus 0.03 % topical ointment topical DAILY 06/08/24 09/17/24 Unknown History doxycycline hyclate 100 mg capsule mg PO DAILY 10/09/24 Unknown History metoprolol succinate 25 mg mg PO DAILY 10/09/24 Unknown History tablet,extended release 24 hr metronidazole 0.75 % topical cream appl topical 10/09/24 Unknown History minocycline 100 mg capsule mg PO 10/09/24 Unknown History Exam Airway Mallampati Class: I TM Dist: >3cm Neck ROM: Full Loose/Missing/Broken Teeth: No Heart: ok Lungs: ok Assessment and Plan Assessment Anesthesia Assessment: Anesthesia Plan Discussed Final Anesthetic Review Family History of Problems with Anesthesia: No NPO: Yes ASA Class: III Final Preanesthetic Review: No Changes in Pt Med Stat, Meds/Allgs Chart Reviewed, Consent Obtained/Reviewed and Anes Risks/Benef Reviewed Patient Risk: Intermediate Procedure Risk: Intermediate Anesthetic Plan Anesthetic Plan: Agree w/ Assess. and Plan and TIVA Disposition: Standard PACU
[2024-10-13 11:17] VITALS: BMI 31.1
[2024-10-13 11:19] VITALS: BP 123/80; PULSE 68; RESP 16; TEMP 36.3; O2SAT 96
--- NOTE | 2024-10-13 11:27 | MHC.SHP ---
Pre-Procedural Eval Section A - 24 Hr Update-Section A only Date of Service: 10/13/24 Section B - Complete if H&P > 30 days Chief Complaint: Abdominal distension (gaseous) Relevant Family History (Specify if Yes): No Relevant Social History: None Present Medications: see Short Stay Collaborative assessment Medical History: Significant History (Perioral dermatitis Muscle spasm Microscopic hematuria Hot flashes Vitamin D deficiency Fibromyalgia Osteoarthritis Chronic GERD Depression, major, recurrent) History of Previous Operations: Relevant previous surgery/procedure and date(s) (History of esophagogastroduodenoscopy (EGD) H/O colonoscopy History of hysterectomy History of surgery) Allergies: Allergies Allergy/AdvReac Type Severity Reaction Status Date / Time cat dander [cats] Allergy Intermediate Itchy Eyes Verified 10/09/24 11:32 and burning cigarette smoke Allergy Intermediate migraines Verified 10/09/24 11:32 latex Allergy Intermediate Rash Verified 10/09/24 11:32 trazodone Allergy Intermediate palpitation Verified 10/09/24 11:32 s Penicillins AdvReac Intermediate Abdominal Verified 10/09/24 11:32 Pain tamsulosin Allergy Severe Dizziness Uncoded 10/09/24 11:32 Review of Systems Sugical H&P ROS: Negative: Constitution, Cardiovascular, Respiratory, Neurological, Psychiatric, Hem-Onc, Allergic/Immunologic, Gastrointestinal, Genitourinary, Musculoskeletal, Integumentary, Endocrine and Eyes/Ears/Nose/Throat Exam Surgical H&P Exam: Normal: HEENT, Normal: Heart, Normal: Lungs, Normal: Extremities, Normal: Abdomen, Normal: Skin and Normal: Neurological Plan Diagnosis/Plan: Unchanged I have reviewed the history and physical and performed a pertinent physical examination on my patient. No changes have occurred unless specified. Time Spent With Patient Time: Total time managing care of this patient today ____ minutes.
[2024-10-13] MEDS: Lactated Ringers 1,000 ML 100 ML IVCONT (11:40)
--- NOTE | 2024-10-13 12:27 | W.PM.OPN ---
Operative Note Operative Note Date of Service: 10/13/24 Narrative: Procedure Description: EGD Indication: dysphagia Anesthesia: MAC FLEXIBLE TRANSORAL UPPER GASTROINTESTINAL ENDOSCOPY UPPER ENDOSCOPY Consent: Indications for the procedure and potential complications of bleeding, perforation, reaction to medications and missed diagnosis were discussed with the patient and informed consent was obtained. Instrument: Olympus GIF H 190 J mid size upper endoscope Monitoring: Vital signs and clinical assessment, continuous EKG monitoring, Pulse oximetry, Carbon Dioxide monitoring and blood pressure monitoring were done throughout the procedure. Procedure: The patient was placed in the left lateral decubitis position and pre-procedure medications were administered and a bite block was placed. The endoscope was inserted into the mouth and advanced under direct vision to the third part of duodenum. A careful inspection was made as the upper endoscope was withdrawn including a retroflexed examination of the proximal stomach; Findings and interventions are described below. Findings: Larynx:normal Esophagus: GE junction at 35 cm, diaphragm hiatus at 37 cm, consistent with 2 cm sliding hiatal hernia, with mild esophagitis, bx taken from GEJ, and distal, proximal esophagus--balloon dilation done at LES and UES to 20 mm with no tears seen. Small inlet patch noted Stomach: patchy erythema . Biopsies were obtained. Grade 2 flap valve on retroflexed examination of the cardia. Pylorus was stretched to 20 mm using wire guided balloon Duodenum: patchy erythema - bx taken Intervention: Biopsies as noted above, balloon dilation incl with wire Impression/Findings: gastritis duodenitis esophagitis hiatal hernia inlet patch PLAN: check if taking PPI--if taking then change GERD precautions
[2024-10-13 12:35] VITALS: BP 101/62; PULSE 88; RESP 20; TEMP 36.4; O2SAT 90
[2024-10-13 12:50] VITALS: BP 112/88; PULSE 64; RESP 20; O2SAT 99
[2024-10-13] MEDS: ondansetron HCL 4 MG/2 ML VIAL IVPUSH (12:58)
[2024-10-13 13:04] VITALS: BP 116/66; PULSE 54; RESP 16; O2SAT 100
[2024-10-13 13:20] VITALS: BP 112/71; PULSE 54; RESP 16; O2SAT 99
[2024-10-13 13:28] VITALS: BP 127/70; PULSE 61; RESP 16; TEMP 36.4; O2SAT 98
== END 2024-10-13 13:57 | disposition home or self-care (01) ==
PROVIDERS: PCP Internal Medicine; Visit Provider Internal Medicine Gastroenterology
PROC: 0DJ08ZZ Inspection of Upper Intestinal Tract, Via Natural or Artificial Opening Endoscopic (ICD-10-PCS; CPT 43235; principal; 2024-10-13 14:00)
DX: K29.70 Gastritis, unspecified, without bleeding (principal); K29.80 Duodenitis without bleeding; K21.00 Gastro-esophageal reflux disease with esophagitis, without bleeding; K44.9 Diaphragmatic hernia without obstruction or gangrene; Q39.8 Other congenital malformations of esophagus; R14.0 Abdominal distension (gaseous); R73.03 Prediabetes; G47.30 Sleep apnea, unspecified; J45.909 Unspecified asthma, uncomplicated; G89.4 Chronic pain syndrome; E55.9 Vitamin D deficiency, unspecified; Z87.442 Personal history of urinary calculi
CPT/HCPCS: 43249; 43248; 43239; 88305; 88313; 88342; C1726; J2003; J2405; J2704; J3010

== ENCOUNTER → 2024-10-13 10:41 | Outpatient (BNV) | payer OTHER, SELFPAY | PROVIDERS: PCP Internal Medicine; Visit Provider Internal Medicine Gastroenterology | DX: R13.10 Dysphagia, unspecified (principal); K20.90 Esophagitis, unspecified without bleeding; K31.1 Adult hypertrophic pyloric stenosis | CPT/HCPCS: 43239; 43245; 43249 ==

== ENCOUNTER 2024-10-27 10:50 | Outpatient (AMB) | payer OTHER, SELFPAY ==
--- NOTE | 2024-10-27 10:53 | A.OFFPC_ITS ---
Vital Signs 10/27/24 10:54 Height 5 ft 4 in Weight 180 lb 8 oz BMI 31.0 BP 118/82 Blood Pressure Location Lt brachial Position Sitting Pulse 66 Pulse Source Pulse Oximeter Temp 97.8 F Temp Source Oral Pulse Oximetry (%) 97 Intake Visit Reasons: ?tongue blister follow-up Allergies cat dander [cats] Allergy (Intermediate, Verified 10/27/24 10:54) Itchy Eyes and burning cigarette smoke Allergy (Intermediate, Verified 10/27/24 10:54) migraines latex Allergy (Intermediate, Verified 10/27/24 10:54) Rash trazodone Allergy (Intermediate, Verified 10/27/24 10:54) palpitations Penicillins Adverse Reaction (Intermediate, Verified 10/27/24 10:54) Abdominal Pain tamsulosin Allergy (Severe, Uncoded 10/09/24 11:32) Dizziness Medication List - Last Reconciled 10/27/24 by Gaudencio Ballard MD [Adult Sanitary Wipes As directed] albuterol sulfate 2.5 mg (3 mL) inhalation QID PRN albuterol sulfate 90 mcg/actuation 2 puffs inhalation Q6H PRN amitriptyline 10 mg PO BEDTIME gabapentin 300 mg PO BEDTIME 90 days lorazepam mg PO DAILY magnesium 250 mg PO BID metoprolol succinate ER mg PO DAILY nebulizers with supplies and all needed equipment, to use for updraft treatments pantoprazole 40 mg PO BID [Poise incontinence pads Requires poise due to allergies. NS] pyridoxine (vitamin B6) 100 mg PO DAILY [suction grab bars As directed] tacrolimus 0.03% topical DAILY tramadol 50 mg PO BID PRN 15 days turmeric mg PO [Updraft machine tubing As directed] venlafaxine ER 150 mg PO BEDTIME 90 days Tobacco use date assessed: 10/27/24 Dental Screening Dental Screen Date: 10/27/24 Did you have a dental visit in the last 12 months?: Yes Did you have a dental problem in the last 6 months where you did not have access to dental care?: No Was dental information given to patient?: Patient has dentist HPI ?tongue blister follow-up HPI Details History - The patient is a 59-year-old female pr esenting with a persistent white patch on her lower left lip. - Persisting for three months since [place] kathia, the lesion was initially diagnosed as a cold sore, treated with Valtrex with no resolution. - The patient regularly applies lip mois turizers due to dry lips. - The white patch is non-blistering, unl [place] its earlier presentation. - There is concern about potential preca ncerous status due to its unchanging nature. - The patch is tender to touch. - The patient has not sought additional medical evaluation prior to this visit, and a referral to [facility] for further examination and possible biopsy is discussed. Problem List - Persistent White Patch on Lip Patient Instructions - Contact [facility] as mirian n as possible for an appointment. - Discuss the urgency of the referral fo r further evaluation and possible biopsy of the lip lesion. - Ensure to bring a photo of the lesion for the traveling construction superintendent to review. - Monitor the lesion for changes and josi id manipulating the area. - Continue using sun protection on the l ips with SPF chapstick. Review of Systems - General: No fever no chills - Neurological: No headaches no dizziness - Ear nose throat: No sore throat no hearing difficulty no ear pain - Cardiovascular: No syncope, no chest pain, no palpitations - Gastrointestinal: No nausea vomiting or diarrhea - Endocrine: No polyuria polydipsia no heat intolerance - Genitourinary: No dysuria , no blood in urine Physical Exam General: No acute distress HEENT: White patch on the lower left lip, possibly precancerous, requires biopsy Neck: Supple Respiratory system: Able to talk in full sentences, no audible wheeze Gastrointestinal: No pain Extremities: No new findings RECEIVING WEIGHER: Alert awake oriented x3 motor sensory intact Skin: Normal turgor [facility] Medical History Kidney stones Kidney stones, calcium oxalate Perioral dermatitis Muscle spasm Microscopic hematuria Hot flashes Vitamin D deficiency Fibromyalgia Osteoarthritis Chronic GERD Depression, major, recurrent Surgical History History of esophagogastroduodenoscopy (EGD) H/O colonoscopy History of hysterectomy History of surgery Family History Father No problems noted. Mother Asthma Dementia Alzheimer's disease Paternal Aunt Lung cancer Breast cancer, Onset Age: 62 Brother No problems noted. Brother No problems noted. Brother No problems noted. Sister No problems noted. Sister No problems noted. Sister No problems noted. Paternal Aunt Breast cancer, Onset Age: 70 Other Mental health disorder Social History Household Members: Significant Other and Children Household Members Other:: 2 children Housing: House Are you a primary home day care provider to a significant other at home: No Do you presently have visiting nurse or other home services: No Alcohol intake: never Patient Tobacco Use Status: Never used Tobacco e-Cigarette/Vaping Use: Never Used service: No Current occupational status: unemployed and disabled Cognitive needs: No Hearing needs: No Vision needs: Yes Female Reproductive History Menstrual Age of Menarche: 15 Questionnaire PHQ-9 Over the last 2 weeks, how often have you been bothered by any of the following problems? 1. Little interest or pleasure in doing things: several days 2. Feeling down, depressed, or hopeless: several days 3. Trouble falling or staying asleep, or sleeping too much: several days 4. Feeling tired or having little energy: several days 5. Poor appetite or overeating: not at all 6. Feeling bad about yourself - or that you are a failure or have let yourself or your family down: not at all 7. Trouble concentrating on things, such as reading the newspaper or watching television: several days 8. Moving or speaking so slowly that other people could have noticed. Or the opposite - being so fidgety or restless that you have been moving around a lot more than usual: not at all 9. Thoughts that you would be better off or of hurting yourself in some way: not at all Total score: 5 Depression Screening Interpretation: Negative Depression Screening Done: Yes 25945 - PHQ-9 Billing: Yes Source: Developed by Drs. Gatito Agustin, Catina Hunter, Adrien Liao and colleagues, with an educational kori from [employer]. Thrive Questionnaire Date Thrive assessed: 10/27/24 I am a: Patient What is your living situation today?: I have a steady place to live Within the past 12 months, did the food you bought not last and you didn't have the money to get more?: Never true Within the past 12 months, did you worry whether your food would run out before you got money to buy more?: Never true Do you have trouble paying for medicines?: No Do you have trouble getting transportation to medical appointments?: No Do you have trouble paying your heating and electricity bill?: No Do you have trouble taking care of your child, family member or friend?: No Do you have trouble with day-to-day activities such as bathing, preparing meals, shopping, managing finances, etc.?: I choose not to answer this question Are you currently unemployed and looking for a job?: Yes Are you interested in more education?: No Please select the resources that you would like help with: None Currently or been in a relationship where the following occur: No concerns reported THRIVE Score: 0 AUDIT C Alcohol Use Questionnaire (AUDIT-C) 1. How often do you have a drink containing alcohol?: Never 3. How often do you have six or more drinks on one occasion?: Never Total Score: 0 Score Reviewed/Action Taken: Yes OLI-7 AMB Questionnaire OLI-7 Date OLI - 7 assessed: 10/27/24 Feeling nervous, anxious, or on edge: 2 = More than half the days Not being able to stop or control worryin = More than half the days Worrying too much about different things: 2 = More than half the days Trouble relaxin = More than half the days Being so restless that it is hard to sit still: 2 = More than half the days Becoming easily annoyed or irritable: 2 = More than half the days Feeling afraid as if something awful might happen: 0 = Not at all Total OLI-7 score (0-4 normal; 5-9 mild; 10-14 moderate; 15-21 severe): 12 Source: Developed by Drs. Gatito Agustin, Catina Hunter, Adrien Liao and colleagues, with an educational kori from [employer]. OLI-7 Assessment Billing OLI-7 Assessment Tool: OLI-7 Assessment 38047 Physical exam (Primary Care) Vital Signs: Last Vital Signs Temp 97.8 F 10/27/24 10:54 Pulse 66 10/27/24 10:54 BP 118/82 10/27/24 10:54 Pulse Ox 97 10/27/24 10:54 BMI result Body Mass Index 31.0 Tobacco/Smoking Status: Tobacco use Status Tobacco use date assessed 10/27/24 10/27/24 10:55 Patient Tobacco Use Status Never used Tobacco 10/27/24 10:55 e-Cigarette/Vaping Use Never Used 10/27/24 10:55 PHQ-9: PHQ-9 Score PHQ-9: Total score 5 10/27/24 10:55 Depression Screening Interpretation: Negative Thrive Assessment: Date of Thrive Assessment Date Thrive assessed 10/27/24 10/27/24 10:55 Currently or been in a relationship where the following occur: No concerns reported Coding Level of Care Code Est Pt Level 3 (27541) Diagnoses Lesion of lip K13.0 Additional Codes OLI-7 Assessment Billing - OLI-7 Assessment Tool: OLI-7 Assessment 06621 ([id number]) PHQ-9 - 92604 - PHQ-9 Billing: Yes ([id number]) Assessment & Plan Assessment & Plan (1) Lesion of lip: Code(s): K13.0 - Diseases of lips Category: Medical Plan History - The patient is a 59-year-old female presenting with a persistent white patch on her lower left lip. - Persisting for three months since August, the lesion was initially diagnosed as a cold sore, treated with Valtrex with no resolution. - The patient regularly applies lip moisturizers due to dry lips. - The white patch is non-blistering, unlike its earlier presentation. - There is concern about potential precancerous status due to its unchanging nature. - The patch is tender to touch. - The patient has not sought additional medical evaluation prior to this visit, and a referral to [facility] for further examination and possible biopsy is discussed. Problem List - Persistent White Patch on Lip Patient Instructions - Contact [facility] as soon as possible for an appointment. - Discuss the urgency of the referral for further evaluation and possible biopsy of the lip lesion. - Ensure to bring a photo of the lesion for the traveling construction superintendent to review. - Monitor the lesion for changes and avoid manipulating the area. - Continue using sun protection on the lips with SPF chapstick. Orders: Referrals Dermatology Referral K13.0 - Diseases of lips
[2024-10-27 10:54] VITALS: BP 118/82; PULSE 66; TEMP 36.6; O2SAT 97; BMI 31.0
--- OUTSIDE RECORDS SUMMARY | 2024-10-27 13:13 | XMS_ITS | Encounter Summary ---
Author Organization [facility] Address [address] [place] [address] Care Team Providers Care Correctional Classification Counselor Name Role Phone Al Garcia MD Primary Care Provider Unavail able Padmini Baltazar DO Primary Care Pro vider Unavailable Melida Morales MD Primary Care Provider Unavaila Audrey Reyez MD Primary Care Provider Un available Gaudencio Ballard MD Primary Care Provider Unavailabl e Encounter Details Date Type Department Care Team Description 04/23/2013 Septic Tank Servicer Report Medical Records [address] [place] [address] [facility], [address] [id number] Social History Tobacco Use Types Packs/Day Years [...] on filedocumented in this encounter Care Teams Correctional Classification Counselor Relationship Specialty Start Date End Date Al [...]
--- OUTSIDE RECORDS SUMMARY | 2024-10-27 13:13 | XMS_ITS | Encounter Summary ---
Author Organization [facility] Address [address] [place] [address] Care Team Providers Care Carpet Tile Layer Name Role Phone Al Garcia MD Primary Care Provider Unavail able Padmini Baltazar DO Primary Care Pro vider Unavailable Melida Morales MD Primary Care Provider Unavaila ble Audrey Ramirez MD Primary Care Provider Un available Gaudencio Ballard MD Primary Care Provider Unavailabl e Encounter Details Date Type Department Care Team Description 01/12/2015 Business Doc Medical Records [address] [place] [address] Abstract, Provider Social History Tobacco Use Types [...] on filedocumented in this encounter Care Teams Carpet Tile Layer Relationship Specialty Start Date End Date Al [...]
--- OUTSIDE RECORDS SUMMARY | 2024-10-27 13:13 | XMS_ITS | Clinical Summary ---
Author Organization [facility] Address [address] [place] [address] Care Team Providers Care Cherry Dipper Name Role Phone Gaudencio Ballard MD Primary Care Provider [phone] Allergies Active Allergy Reactions Criticality Noted Date [...] day 30 tablet 11 4 10/16/19 Active Problems Problem Noted Date Diagnosed Date [...] Office Visit [facility] [address] [address] Dania Celaya ARNP [address] [address] Health Maintenance Due Date Last [...] 06/12/2016 04/17/2016 Influenza Vaccine (#1) 2024 Insurance [facility] ONE CARE DUAL SNP ([id number]) [facility] DUAL SNP ([id number]) Care Teams Cherry Dipper Relationship Specialty Start Date End Date Gaudencio Ballard MD [facility] [address] PCP - General Internal Medicine 12/12/22
--- OUTSIDE RECORDS SUMMARY | 2024-10-27 13:13 | XMS_ITS | Encounter Summary ---
Author Organization [facility] Address [address] [place] [address] Care Team Providers Care Director Of Cloud Services Name Role Phone Al Garcia MD Primary Care Provider Unavail able Padmini Baltazar DO Primary Care Pro vider Unavailable Melida Morales MD Primary Care Provider Unavaila ble Audrey Ramriez MD Primary Care Provider Un available Gaudencio Ballard MD Primary Care Provider Unavailabl e Encounter Details Date Type Department Care Team Description 06/05/2011 Lead Game Designer Report Medical Records [address] [place] [id number] Elijah Pearson Social History Tobacco Use Types [...] on filedocumented in this encounter Care Teams Director Of Cloud Services Relationship Specialty Start Date End Date Al [...]
--- OUTSIDE RECORDS SUMMARY | 2024-10-27 13:13 | XMS_ITS | Encounter Summary ---
Author Organization [facility] Address [address] [place] [address] Care Team Providers Care Fish Hatchery Assistant Name Role Phone Al Garcia MD Primary Care Provider Unavail able Padmini Baltazar DO Primary Care Pro vider Unavailable Melida Morales MD Primary Care Provider Unavaila ble Audrey Ramirez MD Primary Care Provider Un available Gaudencio Ballard MD Primary Care Provider Unavailabl e Encounter Details Date Type Department Care Team Description 04/30/2014 Brand Advisor Report Medical Records [address] [place] [address] Edwige Gannon MD Social History Tobacco Use [...] on filedocumented in this encounter Care Teams Fish Hatchery Assistant Relationship Specialty Start Date End Date Al [...]
--- OUTSIDE RECORDS SUMMARY | 2024-10-27 13:13 | XMS_ITS | Clinical Summary ---
Author Organization [facility] Address [address] [place] [address] Care Team Providers Care Channel Marketing Manager Name Role Phone Margie Pham MD Primary Care Provider [phone] Allergies Active Allergy Reactions Criticality Noted Date [...] age to complete this topic Care Teams Channel Marketing Manager Relationship Specialty Start Date End Date Margie Pham MD PCP - General Internal Medicine 10/25/17
--- OUTSIDE RECORDS SUMMARY | 2024-10-27 13:13 | XMS_ITS | Encounter Summary ---
Author Organization [facility] Address [address] [place] [address] Care Team Providers Care Traffic Manager Name Role Phone Al Garcia MD Primary Care Provider Unavail able Padmini Baltazar DO Primary Care Pro vider Unavailable Melida Morales MD Primary Care Provider Unavaila ble Audrey Ramirez MD Primary Care Provider Un available Gaudencio Ballard MD Primary Care Provider Unavailabl e Encounter Details Date Type Department Care Team Description 12/13/2010 Fur Sewer Report Medical Records [address] [place] [address] Florentin Rabago MD Social History Tobacco Use [...] on filedocumented in this encounter Care Teams Traffic Manager Relationship Specialty Start Date End Date Al [...]
--- OUTSIDE RECORDS SUMMARY | 2024-10-27 13:13 | XMS_ITS | Encounter Summary ---
Author Organization [facility] Address [address] [place] [address] Care Team Providers Care Crate Repairer Name Role Phone Audrey Ramirez MD Primary Care Provider Un available Gaudencio Ballard MD Primary Care Provider Unavailabl e Reason for Visit * Reason Onset Date Comments REFERRAL 04/01/2017 Encounter Details Date Type Department Care Team Description 04/01/2017 Telephone Podiatry - [address] [address] Michael Lopez, DPM REFERRAL Social History Tobacco Use Types Packs/Day Years Used Date Smoking Tobacco: Never Smokeless Tobacco: Never Alcohol Use Standard Drinks/Week Comments No 0 (1 standard drink = 0.6 oz pur e alcohol) Sex Assigned at Date Recorded Not on file documented as of this encounter Miscellaneous Notes * Telephone Encounter - [place]anna Cook M.A. - 04/01/2017 1:58 PM EDT Pt scheduled for 05/09/2017 @ 11:30am, please inform the patient and add notes * Telephone Encounter - Devante Doty - 04/01/2017 11:45 AM EDT Patient was referred to Podiatry for Problem visit for pain in foot Payor: Not third-green party related Priority: 4-6 weeks There is nothing within the tie frame is [place]. May you please help with booking documented in this encounter Plan of Treatment Not on file documented as of this encounter Visit Diagnoses Not on filedocumented in this encounter Care Teams Crate Repairer Relationship Specialty Start Date End Date Audrey Ramirez MD PCP - General Internal Medicine 01/20/16 Gaudencio Ballard MD PCP - General Internal Medicine 09/16/19 documented as of this encounter
--- OUTSIDE RECORDS SUMMARY | 2024-10-27 13:13 | XMS_ITS | Encounter Summary ---
Author Organization [facility] Address [address] [place] [address] Care Team Providers Care Medical Transcription Editor Name Role Phone Audrey Ramirez MD Primary Care Provider Un available Gaudencio Ballard MD Primary Care Provider Unavailabl e Reason for Visit * Reason Comments E-prescribe Rx Request Encounter Details Date Type Department Care Team Description 08/27/2017 Refill OBGYN - [place] [address] [place] [address] Isis Hawk MD [address] [place] [address] E-prescribe Rx Request Social History Tobacco Use Types Packs/Day Years Used Date Smoking Tobacco: Never Smokeless Tobacco: Never Alcohol Use Standard Drinks/Week Comments No 0 (1 standard drink = 0.6 oz pur e alcohol) Sex Assigned at Date Recorded Not on file documented as of this encounter Miscellaneous Notes * Telephone Encounter - BUCK Clark, RN - 08/30/2017 9:51 AM EST Spoke to Dr Ochoa re: this, this morning, explained pt has dizziness and breast tenderness after stopping paxil. Wanted to discuss other options for menopause sx. Per Dr Ochoa pt was on 1/2 the dose of paxil used for depression, shouldn't have discontinuation symptoms, dizziness may not be related and breast tenderness may be transient and come and go for a woman of her age states hes afraid if she comes in for appt he may not have much to offer her . Wants RN to call pt and discuss. Called pt and left message on machine * Telephone Encounter - David Ochoa MD - 08/28/2017 4:54 AM EST Please discuss with me why she needs the appointment on 08/30/17. She stopped her medication for menopause symptom because the symptoms resolved. If her symptoms have not returned now that she is off the medication, what is she seeing me for? She doesn't need to see me for lack of symptoms. She can stop the medication anytime she desires. * Telephone Encounter - David Ochoa MD - 08/28/2017 4:35 AM EST I never prescribed this for this patient. Dr. Hawk may have prescribed, but she stopped it on her own many months ago. She has appointment 08/30/17 * Telephone Encounter - Margo Hernandez - 08/27/2017 4:20 PM EST WHEN WAS THE PATIENTS LAST ANNUAL HAND BLOCKER EXAM? 01/02 Does patient have an upcoming appointment? Yes 08/30/17 med follow up (THE MEDICATION REQUESTED IS ON THE MED LIST ABOVE) Did you check the Pharmacy information above?: NO Indicate how soon the patient needs the script: BY THE END OF THE DAY Patient would like script to be: E-PRESCRIBED/FAXED TO PHARMACY Is the doctor here today?: NO Can the message wait until the doctor returns?: NO Has the patient been told that the prescription will not be filled until the end of the day? NO [place] / [place] / Product Type: MEDICARE [id number] documented in this encounter Plan of Treatment Not on file documented as of this encounter Visit Diagnoses Not on filedocumented in this encounter Care Teams Medical Transcription Editor Relationship Specialty Start Date End Date Audrey Ramirez MD PCP - General Internal Medicine 01/20/16 Gaudencio Ballard MD PCP - General Internal Medicine 09/16/19 documented as of this encounter
--- OUTSIDE RECORDS SUMMARY | 2024-10-27 13:13 | XMS_ITS | Encounter Summary ---
Author Organization [facility] Address [address] [place] [address] Care Team Providers Care Flash Welder Name Role Phone Al Garcia MD Primary Care Provider Unavail able Padmini Baltazar DO Primary Care Pro vider Unavailable Melida Morales MD Primary Care Provider Unavaila ble Audrey Ramirez MD Primary Care Provider Un available Gaudencio Ballard MD Primary Care Provider Unavailabl e Encounter Details Date Type Department Care Team Description 09/16/2014 Bander And Cellophaner Machine Report Medical Records [address] [place] [address] Noé Henderson i Social History Tobacco Use [...] on filedocumented in this encounter Care Teams Flash Welder Relationship Specialty Start Date End Date Al [...]
--- OUTSIDE RECORDS SUMMARY | 2024-10-27 13:13 | XMS_ITS | Clinical Summary ---
Author Organization [facility] Address [address] [place] [address] Phone Care Team Providers Care Receiving Tank Operator Name Role Phone Gaudencio Ballard MD Primary Care Provider [phone] Allergies Active Allergy Reactions Criticality Noted Date [...] Description 09/29/2024 3:00 PM EST Office Visit [facility] [address] [facility] [address] [place] [address] Jese Kidd MD PTSD (post-traumatic stress disorder) (Primary Dx); Palpitations; PVC's (premature ventricular contractions) from Last 3 Months Immunizations Name Administration [...] GEMUSE QTc 429 ms GEMUSE P Wave Hy[place] 37 degrees GEMUSE R Hydes 16 degrees GEMUSE T Hydes 35 degrees GEMUSE ECG Interpretation Normal sinus [...] Most Recently Relevant to Health Maintenance Insurance [facility] MEDICAID Care Teams Receiving Tank Operator Relationship Specialty Start Date End Date Gaudencio Ballard MD [address] [facility] [place] [address] PCP - General Internal Medicine 09/16/19
--- OUTSIDE RECORDS SUMMARY | 2024-10-27 13:13 | XMS_ITS | Encounter Summary ---
Author Organization [facility] Address [address] [place] [address] Care Team Providers Care Career Orientation Teacher Name Role Phone Al Garcia MD Primary Care Provider Unavail able Padmini Baltazar DO Primary Care Pro vider Unavailable Melida Morales MD Primary Care Provider Unavaila ble Audrey Ramirez MD Primary Care Provider Un available Gaudencio Ballard MD Primary Care Provider Unavailabl e Encounter Details Date Type Department Care Team Description 03/30/2014 Staff Antisubmarine Officer Report Medical Records [address] [place] [id number] Social History Tobacco Use Types Packs/Day Years [...] on filedocumented in this encounter Care Teams Career Orientation Teacher Relationship Specialty Start Date End Date Al [...]
--- OUTSIDE RECORDS SUMMARY | 2024-10-27 13:13 | XMS_ITS | Encounter Summary ---
Author Organization [facility] Address [address] [place] [address] Care Team Providers Care Teachers Aide Name Role Phone Gaudencio Ballard MD Primary Care Provider [phone] Reason for Visit * Reason Comments Initial Assessment * Consultation (Routine) - Closed Specialty Diagnoses / Procedures Referred By Annika yan Referred To Contact Cardiology Diagnoses Palpitations Gaudencio Ballard MD [address] [place] [address] Phone: tel: fax: [facility] [address] [place] [address] Phone: tel: fax: Referral ID Status Reason Start Date Expiration Date V isits Requested Visits Authorized [id number] Closed Specialty Services Required 07/10/2024 07/10/2025 1 1 Encounter Details Date Type Department Care Team (Late st Contact Info) Description 09/29/2024 3:00 PM EST Office Visit [facility]iology [facility] [address] [place] [phone] Jese Kidd MD [address] [place] [address],[address] [phone] PTSD (post-traumatic stress disorder) (Primary Dx); Palpitations; [...] such symptoms. She sought emergency care at [facility], where blood tests and an EKG were performed. She was subsequently referred to a cemetery keeper on [address]. Despite two attempts to use a heart monitor, it malfunctioned both times. A 24- hour Holter monitor was also unsuccessful due to technical issues. She was then referred to [facility] for further evaluation. An echocardiogram conducted at [facility] revealed normal results. She [...] or lesions. EKG: Normal TESTING: Holter from [place] reviewed. NSR with mean HR 93, interm [...] The prescription will be [facility] [place]. If her blood pressure gets too low and she starts feeling very lightheaded and faint, in the absence of dehydration, we may need to reconsider beta nikolas Rx. I encouraged her tostay in touch with us through [facility]. We will see her again in the [...] prior to the recording. I have advised aJnna Hooper that she may refuse the recording [...] GEMUSE QTc 429 ms GEMUSE P Wave [place] 37 degrees GEMUSE R [place] 16 degrees GEMUSE T [place] 35 degrees GEMUSE ECG Interpretation Normal sinus [...] 09/29/2024 documented in this encounter Care Teams Teachers Aide Relationship Specialty Start Date End Date Gaudencio Ballard MD [address] [place] [address] PCP - General Internal Medicine 09/16/19 documented as of this encounter
--- OUTSIDE RECORDS SUMMARY | 2024-10-27 13:13 | XMS_ITS | Encounter Summary ---
Author Organization [facility] Address [address] [place] [address] Care Team Providers Care Data Steward Name Role Phone Al Garcia MD Primary Care Provider Unavail able Padmini Baltazar DO Primary Care Pro vider Unavailable Melida Morales MD Primary Care Provider Unavaila Audrey Reyez MD Primary Care Provider Un available Gaudencio Ballard MD Primary Care Provider Unavailabl e Encounter Details Date Type Department Care Team Description 05/11/2013 Director Of Creative Services Report Medical Records [address] [place] [address] [id number] Social History Tobacco Use Types Packs/Day Years [...] on filedocumented in this encounter Care Teams Data Steward Relationship Specialty Start Date End Date Al [...]
--- OUTSIDE RECORDS SUMMARY | 2024-10-27 13:13 | XMS_ITS | Encounter Summary ---
Author Organization [facility] Address [address] [place] [address] Care Team Providers Care Motor Vehicle Licence Examiner Name Role Phone Al Garcia MD Primary Care Provider Unavail able Padmini Baltazar DO Primary Care Pro vider Unavailable Melida Morales MD Primary Care Provider Unavaila Audrey Reyez MD Primary Care Provider Un available Gaudencio Ballard MD Primary Care Provider Unavailabl e Reason for Visit * Reason Onset Date Comments Provider Call Back 12/30/2014 Encounter Details Date Type Department Care Team Description 12/30/2014 Telephone Urology [address] [place] [address] Marlon Go MD Provider Call Back Social History Tobacco Use Types Packs/Day Years Used Date Smoking Tobacco: Never Smokeless Tobacco: Never Alcohol Use Standard Drinks/Week Comments No 0 (1 standard drink = 0.6 oz pur e alcohol) Sex Assigned at Date Recorded Not on file documented as of this encounter Miscellaneous Notes * Telephone Encounter - Elyssa Arambula L.P.N. - 12/30/2014 3:37 PM EDT Spoke with pt. She was confused, we did not give her the urine collection container, it was from Dr. GARCIA. * Telephone Encounter - Krissy Pacheco - 12/30/2014 3:19 PM EDT Patient calling regarding her appointment with Dr. Go on Saturday01/03/15 asking what type of prepshe needs to do prior to her appointment. She was given a container for her urine but she is not sure if she should fill that and bring it with her. Patient would like a call back from a nurse to explain what she is being seen for. I advised patient to contact the referring provider if she does notwant to wait for a nurse to call her back, but she requested a call back from someone in the Urology Department. Patient can be reached at [phone]. Thank you. documented in this encounter Plan of Treatment Not on file documented as of this encounter Visit Diagnoses Not on filedocumented in this encounter Care Teams Motor Vehicle Licence Examiner Relationship Specialty Start Date End Date Al [...]
--- OUTSIDE RECORDS SUMMARY | 2024-10-27 13:13 | XMS_ITS | Encounter Summary ---
Author Organization [facility] Address [address] [place] [address] Care Team Providers Care Ivory Carver Name Role Phone Audrey Ramirez MD Primary Care Provider Un available Gaudencio Ballard MD Primary Care Provider Unavailabl e Reason for Visit * Reason Onset Date Comments Breast Pain 09/02/2017 dizziness 09/02/2017 Encounter Details Date Type Department Care Team Description 09/02/2017 Telephone Adult Medicine [address] [address] Audrey Ramirez MD Breast Pain; dizziness Social History Tobacco Use Types Packs/Day Years Used Date Smoking Tobacco: Never Smokeless Tobacco: Never Alcohol Use Standard Drinks/Week Comments No 0 (1 standard drink = 0.6 oz pur e alcohol) Sex Assigned at Date Recorded Not on file documented as of this encounter Miscellaneous Notes * Telephone Encounter - Mary Butler - 09/02/2017 12:42 PM EST Pt c/o dizziness and right breast pain for two weeks. Pt describes breast pain as 10/10. Pt reportsshe was taking Paxil for approx. Two weeks and then stopped abruptly. Reports the breast pain and dizziness started soon after stopping Paxil. Pt saw OBGYN on 08/30/17 with same complaints. Calling today concerned because it's not resolving. Denies any redness, swelling or warmth to the touch. Describes as very tender. Denies any drainage. States the dizziness is so bad I can't drive. Pt is A&O x 3, speech is clear and appropriate, able to speak in full sentences, denies CP/SOB,dizziness/weakness, no changes to CMS, no swelling, no N/V/D/Fever (temperature not taken), abdomennon tender, able to eat/drink, able to void, pt reports being able to ambulate with steady gate. Advised to go to ER now. Verbalized understanding and agreed with plan. * Telephone Encounter - Beena Arreguin - 09/02/2017 11:41 AM EST Symptoms patient is presenting: Patient state she has been having severe breast pain. It's in both side but predominately on the right side. Also she is having some dizziness/lightheadedness. If pain or injury related was it due to an accident at work or from a motor vehicle accident? NO If yes, gather 3rd libertarian insurance information Date of accident/Injury: n/a How long has patient had these symptoms?: 2 weeks PCP: Audrey Ramirez [place] / [place] / Product Type: [place]ARE [id number] documented in this encounter Plan of Treatment Not on file documented as of this encounter Visit Diagnoses Not on filedocumented in this encounter Care Teams Ivory Carver Relationship Specialty Start Date End Date Audrey Ramirez MD PCP - General Internal Medicine 01/20/16 Gaudencio Ballard MD PCP - General Internal Medicine 09/16/19 documented as of this encounter
--- OUTSIDE RECORDS SUMMARY | 2024-10-27 13:13 | XMS_ITS | Encounter Summary ---
Author Organization [facility] Address [address] [place] [address] Care Team Providers Care Cable Repairer Name Role Phone Al Garcia MD Primary Care Provider Unavail able Padmini Baltazar DO Primary Care Pro vider Unavailable Melida Morales MD Primary Care Provider Unavaila ble Audrey Ramirez MD Primary Care Provider Un available Gaudencio Ballard MD Primary Care Provider Unavailabl e Encounter Details Date Type Department Care Team Description 09/02/2014 Assembler Tester Report Medical Records [address] [place] [id number] [place] [address] Social History Tobacco Use Types Packs/Day Years [...] on filedocumented in this encounter Care Teams Cable Repairer Relationship Specialty Start Date End Date Al [...]
--- OUTSIDE RECORDS SUMMARY | 2024-10-27 13:13 | XMS_ITS | Encounter Summary ---
Author Organization [facility] Address [address] [place] [address] Care Team Providers Care Track Announcer Name Role Phone Al Garcia MD Primary Care Provider Unavail able Padmini Baltazar DO Primary Care Pro vider Unavailable Melida Morales MD Primary Care Provider Unavaila ble Audrey Ramirez MD Primary Care Provider Un available Gauedncio Ballard MD Primary Care Provider Unavailabl e Encounter Details Date Type Department Care Team Description 03/31/2010 Hospital Medical Records [address] [place] [address] Juliana Hurtado MD Social History Tobacco Use Types Packs/Day [...] on filedocumented in this encounter Care Teams Track Announcer Relationship Specialty Start Date End Date Al [...]
--- OUTSIDE RECORDS SUMMARY | 2024-10-27 13:14 | XMS_ITS | Encounter Summary ---
Author Organization [facility] Address [address] [place] [address] Care Team Providers Care Printed Circuit Board Assembler Name Role Phone Al Garcia MD Primary Care Provider Unavail able Padmini Baltazar DO Primary Care Pro vider Unavailable Melida Morales MD Primary Care Provider Unavaila ble Audrey Ramirez MD Primary Care Provider Un available Gaudencio Ballard MD Primary Care Provider Unavailabl e Encounter Details Date Type Department Care Team Description 01/31/2007 Hospital Medical Records [address] [place] [address] Jose Ram MD Social History Tobacco Use Types Packs/Day [...] on filedocumented in this encounter Care Teams Printed Circuit Board Assembler Relationship Specialty Start Date End Date Al [...]
--- OUTSIDE RECORDS SUMMARY | 2024-10-27 13:14 | XMS_ITS | Encounter Summary ---
Author Organization [facility] Address [address] [place] [address] Care Team Providers Care Surg Rn Name Role Phone Melida Morales MD Primary Care Provider Unavaila Audrey Reyez MD Primary Care Provider Un available Gaudencio Ballard MD Primary Care Provider Unavailabl e Encounter Details Date Type Department Care Team Description 09/29/2015 Business Doc Medical Records [address] [place] [address] Abstract, Provider Social History Tobacco Use Types [...] on filedocumented in this encounter Care Teams Surg Rn Relationship Specialty Start Date End Date Melida Morales MD PCP - General Internal Medicine 07/01/15 01/19/16 Audrey Ramirez MD PCP - General Internal Medicine 01/20/16 Gaudencio Ballard MD PCP - General Internal Medicine 09/16/19 documented as of this encounter
--- OUTSIDE RECORDS SUMMARY | 2024-10-27 13:14 | XMS_ITS | Encounter Summary ---
Author Organization [facility] Address [address] [place] [address] Care Team Providers Care Online Banking Specialist Name Role Phone Al Garcia MD Primary [...] Procedures REFERRAL TO NEUROLOGY Ciarra Martinez MD [address] [place] [address] External Neurology Referral ID Status Reason Start Date Expiration Date V isits Requested Visits Authorized SEE REVIEW 06/16/14 Authorized/ Booked 06/15/2014 09/16/2014 1 1 Reason for Visit * Reason Onset Date Comments Shoulder Pain 06/11/2014 Knee Pain 06/11/2014 Encounter Details Date Type Department Care Team Description 06/11/2014 Telephone [place] [address] Ciarra Martinez MD Shoulder Pain; Knee Pain [...] pt and i sent another referral to [facility] to see if we can get [...] will celso about changing the referral to [facility]. * Telephone Encounter - Dania Bose [...] on filedocumented in this encounter Care Teams Online Banking Specialist Relationship Specialty Start Date End Date Al [...]
--- OUTSIDE RECORDS SUMMARY | 2024-10-27 13:14 | XMS_ITS | Encounter Summary ---
Author Organization [facility] Address [address] [place] [address] Care Team Providers Care Horticulture Superintendent Name Role Phone Audrey Ramirez MD Primary Care Provider Un available Gaudencio Ballard MD Primary Care Provider Unavailabl e Encounter Details Date Type Department Care Team Description 11/27/2017 Software Performance Engineer Report Medical Records [address] [place] [address] [facility] [place] Social History Tobacco Use Types Packs/Day Years [...] on filedocumented in this encounter Care Teams Horticulture Superintendent Relationship Specialty Start Date End Date Audrey Ramirez MD PCP - General Internal Medicine 01/20/16 Gaudencio Ballard MD PCP - General Internal Medicine 09/16/19 documented as of this encounter
--- OUTSIDE RECORDS SUMMARY | 2024-10-27 13:14 | XMS_ITS | Encounter Summary ---
Author Organization [facility] Address [address] [place] [address] Care Team Providers Care Rn Mobile Name Role Phone Gaudencio Ballard MD Primary Care Provider Unavailabl e Encounter Details Date Type Department Care Team Description 02/09/2021 Orders Only Cardio PVCA Diag Testing [address] [address] Gaudencio Ballard MD Palpitations (Primary Dx) Social [...] * ECG HOLTER MONITOR, REVIEW/INTERP (03/15/2021) Gaudencio Ballard MD CARDIOLOGY PVCA documented in this encounter Visit Diagnoses Diagnosis Palpitations- Primary documented in this encounter Care Teams Rn Mobile Relationship Specialty Start Date End Date Gaudencio Ballard MD PCP - General Internal Medicine 09/16/19 documented as of this encounter
--- OUTSIDE RECORDS SUMMARY | 2024-10-27 13:14 | XMS_ITS | Clinical Summary ---
Author Organization [facility] Address [address] [place] [address] Care Team Providers Care Clin Application Specialist Name Role Phone Margie Pham MD Primary Care Provider [phone] Allergies Active Allergy Reactions Criticality Noted Date [...] series) 2042 Medical Devices Implanted Type Area Managing Editor Device Identifier Shelf Expiration Date Model / Serial / Lot Mesh Pelvic Prolapse Polypropylene Y Shape [id number] [facility] - [id number] - [id number] Implanted:Qty: 1 on 10/13/2018 by Liat Sheikh MD at [facility] Mesh N/A: Vagina COLOPLAST 05/15/2021 [id number] / [id number] / [id number] Insurance [facility] Advance Directives Documents on File Type Date Recorded Patient Sludge Filtration Operator Expl anation Health Care Proxy 03/07/2021 * Full Code (Latest Code Status on File) Date Activated Date Inactivated Comments 10/13/2018 5:38 AM 10/14/2018 4:15 PM Healthcare Agents on File Name Relationship Healthcare Agent Relationship Communication Evan Rufus Spouse Healthcare Proxy - Primar y Lisa Biggs Daughter Healthcare Prox y - Alternative Care Teams Clin Application Specialist Relationship Specialty Start Date End Date Margie Pham MD [address] PRIMARY CARE / [place] [address] PCP - General 06/18/18
--- OUTSIDE RECORDS SUMMARY | 2024-10-27 13:14 | XMS_ITS | Encounter Summary ---
Author Organization [facility] Address [address] [place] [address] Care Team Providers Care Payroll And Benefits Manager Name Role Phone Audrey Ramirez MD Primary Care Provider Un available Gaudencio Ballard MD Primary Care Provider Unavailabl e Reason for Visit * Reason Onset Date Comments Prior Authorization 10/21/2017 Encounter Details Date Type Department Care Team Description 10/21/2017 Telephone Adult Medicine [address] [address] Audrey Ramirez MD Prior Authorization Social History Tobacco Use Types Packs/Day Years Used Date Smoking Tobacco: Never Smokeless Tobacco: Never Alcohol Use Standard Drinks/Week Comments No 0 (1 standard drink = 0.6 oz pur e alcohol) Sex Assigned at Date Recorded Not on file documented as of this encounter Miscellaneous Notes * Telephone Encounter - Angélica Larkin M.A. - 10/22/2017 12:58 PM EST This rx is not covered pt must have a dx of either 1. Post herpatic neuralgia 2. Diabetic neuralgia 3. Cancer related neuralgia There are 2 o.t.c. 4% lidocaine options available. Salon pas and aspercreme ( also comes in gel, cream and roll on) Thank you * Telephone Encounter - Jeanette De León - 10/21/2017 11:31 AM EST Pre Authorization for Medication-do not complete and send this encounter unless you have the fax from the pharmacy. Is this a Cover My Meds request: Yes -- Jha Code [id number] Name of Medication lidocaine (LIDODERM) 5 % Dose of Medication 5% How does patient take this med? Place 1 Patch onto the skin every 24 hours for 28 days. Apply for no more than 12 hours in any 24 hour period. What Pharmacy did the fax come from: [facility] Pharmacy fax #: [phone] [employer] Information from fax: What Prescription Plan does the patient have? BIN/PCN if applicable: Cardholder ID: Person Code: Relationship Code: Help desk phone: documented in this encounter Plan of Treatment Not on file documented as of this encounter Visit Diagnoses Not on filedocumented in this encounter Care Teams Payroll And Benefits Manager Relationship Specialty Start Date End Date Audrey Ramirez MD PCP - General Internal Medicine 01/20/16 Gaudencio Ballard MD PCP - General Internal Medicine 09/16/19 documented as of this encounter
--- OUTSIDE RECORDS SUMMARY | 2024-10-27 13:14 | XMS_ITS | Encounter Summary ---
Author Organization [facility] Address [address] [place] [address] Care Team Providers Care Puzzle Assembler Name Role Phone Audrey Ramirez MD Primary Care Provider Un available Gaudencio Ballard MD Primary Care Provider Unavailabl e Reason for Visit * Reason Onset Date Comments APPOINTMENT 12/24/2018 Reschedule Encounter Details Date Type Department Care Team Description 12/24/2018 Telephone Gastroenterology - [address] [place] [phone] Yasir Kimble MD APPOINTMENT (Reschedule) Social History [...] on filedocumented in this encounter Care Teams Puzzle Assembler Relationship Specialty Start Date End Date Audrey Ramirez MD PCP - General Internal Medicine 01/20/16 Gaudencio Ballard MD PCP - General Internal Medicine 09/16/19 documented as of this encounter
--- OUTSIDE RECORDS SUMMARY | 2024-10-27 13:14 | XMS_ITS | Referral Summary ---
Author Organization [facility] Address [address] [place] [address] Care Team Providers Care Food Equipment Service Technician Name Role Phone Margie Pham MD Primary Care Provider [phone] Allergies Active Allergy Reactions Criticality Noted Date [...] on file Medical Devices Implanted Type Area Flooring Helper Device Identifier Shelf Expiration Date Model / Serial / Lot Mesh Pelvic Prolapse Polypropylene [facility] Shape [id number] [id number] - [id number] Implanted:Qty: 1 on 10/13/2018 by Liat Sheikh MD at [facility] Mesh N/A: Vagina COLOPLAST 05/15/2021 [id number] / [id number] / [id number] Insurance [facility] Advance Directives Documents on File Type Date Recorded Patient Compo Caster Expl anation Health Care Proxy 03/07/2021 * Full Code (Latest Code Status on File) Date Activated Date Inactivated Comments 10/13/2018 5:38 AM 10/14/2018 4:15 PM Healthcare Agents on File Name Relationship Healthcare Agent Relationship Communication Evan Hooper Spouse Healthcare Proxy - Primar y Lisa Biggs Daughter Healthcare Prox y - Alternative Care Teams Food Equipment Service Technician Relationship Specialty Start Date End Date Margie Pham MD [address] PRIMARY CARE / [place] [address] PCP - General 06/18/18
--- OUTSIDE RECORDS SUMMARY | 2024-10-27 13:14 | XMS_ITS | Encounter Summary ---
Author Organization [facility] Address [address] [place] [address] Care Team Providers Care Metalsmith Apprentice Name Role Phone Melida Morales MD Primary Care Provider Unavaila Audrey Reyez MD Primary Care Provider Un available Gaudencio Ballard MD Primary Care Provider Unavailabl e Reason for Referral * EXTERNAL (Routine) - Authorized/Booked Specialty Diagnoses / Procedures Referred By Contac t Referred To Contact Physical Therapy Diagnoses Knee pain, left Procedures REFERRAL TO PHYSICAL THERAPY Ciarra Martinez MD [address] [place] [address] External Phys Thrpy Referral ID Status Reason Start Date Expiration Date V isits Requested Visits Authorized SEE NOTE Authorized/B ooked 07/11/2015 10/11/2015 1 1 Encounter Details Date Type Department Care Team Description 07/11/2015 Orders [place] [address] Ciarra Martinez MD Knee pain, left (Primary Dx) Social History Tobacco Use Types Packs/Day Years Used Date Smoking Tobacco: Never Smokeless Tobacco: Never Alcohol Use Standard Drinks/Week Comments No 0 (1 standard drink = 0.6 oz pur e alcohol) Sex Assigned at Date Recorded Not on file documented as of this encounter Plan of Treatment Not on file documented as of this encounter Visit Diagnoses Diagnosis Knee pain, left- Primary Pain in joint, lower leg documented in this encounter Care Teams Metalsmith Apprentice Relationship Specialty Start Date End Date Melida Morales MD PCP - General Internal Medicine 07/01/15 01/19/16 Audrey Ramirez MD PCP - General Internal Medicine 01/20/16 Gaudencio Ballard MD PCP - General Internal Medicine 09/16/19 documented as of this encounter
--- OUTSIDE RECORDS SUMMARY | 2024-10-27 13:14 | XMS_ITS | Encounter Summary ---
Author Organization [facility] Address [address] [place] [address] Care Team Providers Care Transportation Department Supervisor Name Role Phone Al Garcia MD Primary Care Provider Unavail able Padmini Baltazar DO Primary Care Pro vider Unavailable Melida Morales MD Primary Care Provider Unavaila Audrey Reyez MD Primary Care Provider Un available Gaudencio Ballard MD Primary Care Provider Unavailabl e Reason for Visit * Reason Onset Date Comments Sleep Medicine Physician Feedback 06/23/2014 [facility] [phone] Sleep Medicine Physician Feedback 06/25/2014 [facility] [phone] Encounter Details Date Type Department Care Team Description 06/23/2014 Telephone Adult Medicine B - [address] [address] Al Garcia MD Sleep Medicine Physician Feedback ([facility] [phone]); Sleep Medicine Physician Feedback ([facility] [phone]) Social History Tobacco Use Types Packs/Day Years [...] patient for sensitive information Order faxed to [phone]. * Telephone Encounter - Francesca Walton - 06/25/2014 9:34 AM EST Patient has changed her insurance effective 06/25/2014 to [facility] - ID #[id number]. Now shecan go to [facility]. No insurance referral required per patient's insurance. Patient called and advised of appointment time and date: 07/05/19, with a 9:20am arrival, appt. 9:40am. Patient was advised to bring her new insurance card to visit. I will cancel appointment with [facility]. Diagnosis: Chronic leg numbness & shoulder/neck/back pain. Fax to [phone]. Notes, Orders, Labs and Xrays. * Telephone Encounter - Francesca Walton - 06/23/2014 3:51 PM EST No insurance referral required per patient's insurance. Letter with appointment information mailed to patient. Diagnosis: Chronic leg numbness & shoulder/neck/back pain. Expectations: Interventional Management Only. For pain management appointments, send notes, orders, med list, imaging and any procedures. Fax to [phone]. Notes, Order and Imaging. documented in this encounter Plan of Treatment Not on file documented as of this encounter Visit Diagnoses Not on filedocumented in this encounter Care Teams Transportation Department Supervisor Relationship Specialty Start Date End Date Al [...]
--- OUTSIDE RECORDS SUMMARY | 2024-10-27 13:14 | XMS_ITS | Encounter Summary ---
Author Organization [facility] Address [address] [place] [address] Care Team Providers Care Fire Inspector Name Role Phone Gaudencio Ballard MD Primary Care Provider Unavailabl e Encounter Details Date Type Department Care Team Description 12/02/2023 Rhythmic Gymnastics Coach Report Medical Records [address] [place] [id number] Dima Fish Social History Tobacco Use Types [...] on filedocumented in this encounter Care Teams Fire Inspector Relationship Specialty Start Date End Date Gaudencio Ballard MD PCP - General Internal Medicine 09/16/19 documented as of this encounter
--- OUTSIDE RECORDS SUMMARY | 2024-10-27 13:14 | XMS_ITS | Encounter Summary ---
Author Organization [facility] Address [facility] [place] [address] Care Team Providers Care Liability Claims Adjuster Name Role Phone Audrey Ramirez MD Primary Care Provider Un available Gaudencio Ballard MD Primary Care Provider Unavailabl e Reason for Visit * Reason Onset Date Comments Faxed Order 11/28/2017 [facility] Encounter Details Date Type Department Care Team Description 11/28/2017 Telephone Adult Medicine [address] [address] Audrey Ramirez MD Faxed Order ([facility]) Social History Tobacco Use Types Packs/Day Years [...] on filedocumented in this encounter Care Teams Liability Claims Adjuster Relationship Specialty Start Date End Date Audrey Ramirez MD PCP - General Internal Medicine 01/20/16 Gaudencio Ballard MD PCP - General Internal Medicine 09/16/19 documented as of this encounter
--- OUTSIDE RECORDS SUMMARY | 2024-10-27 13:14 | XMS_ITS | Encounter Summary ---
Author Organization [facility] Address [address] [place] [address] Care Team Providers Care Gas Meter Checker Name Role Phone Al Garcia MD Primary Care Provider Unavail able Padmini Baltazar DO Primary Care Pro vider Unavailable Melida Morales MD Primary Care Provider Unavaila ble Audrey Ramirez MD Primary Care Provider Un available Gaudencio Ballard MD Primary Care Provider Unavailabl e Encounter Details Date Type Department Care Team Description 06/18/2011 Hospital Medical Records [address] [place] [address] Melissa Hawk Social History Tobacco Use Types [...] on filedocumented in this encounter Care Teams Gas Meter Checker Relationship Specialty Start Date End Date Al [...]
--- OUTSIDE RECORDS SUMMARY | 2024-10-27 13:14 | XMS_ITS | Encounter Summary ---
Author Organization [facility] Address [address] [place] [address] Care Team Providers Care Light Equipment Operator Name Role Phone Audrey Ramirez MD Primary Care Provider Un available Gaudencio Ballard MD Primary Care Provider Unavailabl e Encounter Details Date Type Department Care Team Description 10/16/2016 Business Doc Medical Records [address] [place] [id number] Abstract, Provider Social History Tobacco Use Types [...] on filedocumented in this encounter Care Teams Light Equipment Operator Relationship Specialty Start Date End Date Audrey Ramirez MD PCP - General Internal Medicine 01/20/16 Gaudencio Ballard MD PCP - General Internal Medicine 09/16/19 documented as of this encounter
--- OUTSIDE RECORDS SUMMARY | 2024-10-27 13:14 | XMS_ITS | Encounter Summary ---
Author Organization [facility] Address [address] [place] [address] Care Team Providers Care Bulb Planter Name Role Phone Al Garcia MD Primary Care Provider Unavail able Padmini Baltazar DO Primary Care Pro vider Unavailable Melida Morales MD Primary Care Provider Unavaila ble Audrey Ramirez MD Primary Care Provider Un available Gaudencio Ballard MD Primary Care Provider Unavailabl e Encounter Details Date Type Department Care Team Description 06/24/2012 Tar Worker Report Medical Records [address] [place] [address] Elijah Pearson Social History Tobacco Use Types [...] on filedocumented in this encounter Care Teams Bulb Planter Relationship Specialty Start Date End Date Al [...]
--- OUTSIDE RECORDS SUMMARY | 2024-10-27 13:14 | XMS_ITS | Clinical Summary ---
Author Organization [facility] Address [address] [place] [address] Care Team Providers Care Footwear Stitcher Name Role Phone Gaudencio Ballard MD Primary [...] C SCREENING Completed 06/21/2008, 007 Care Teams Footwear Stitcher Relationship Specialty Start Date End Date Gaudencio Ballard MD PCP - General Internal Medicine 09/16/19
--- OUTSIDE RECORDS SUMMARY | 2024-10-27 13:14 | XMS_ITS | Encounter Summary ---
Author Organization [facility] Address [address] [place] [address] Care Team Providers Care Mattress Maker Name Role Phone Al Garcia MD Primary Care Provider Unavail able Padmini Baltazar DO Primary Care Pro vider Unavailable Melida Morales MD Primary Care Provider Unavaila ble Audrey Ramirez MD Primary Care Provider Un available Gaudencio Ballard MD Primary Care Provider Unavailabl e Encounter Details Date Type Department Care Team Description 03/14/2012 Family Development Extension Specialist Report Medical Records [address] [place] [address] Melissa Hawk Social History Tobacco Use Types [...] on filedocumented in this encounter Care Teams Mattress Maker Relationship Specialty Start Date End Date [...]
--- OUTSIDE RECORDS SUMMARY | 2024-10-27 13:14 | XMS_ITS | Patient Health Record ---
[facility] Address [address] [place] [address] Care Team Providers Care Corporate Safety Coordinator Name Role Phone [facility], [facility] Primary Care Provider Keith Shaver Unavailable [phone] Allergies Allergen (clinical drug ingredient) Drug/Non Drug [...] Status Risk Notes Problem Acquired hallux valgus (27873883) Hallux valgus (acquired), left foot (M20.12) Active confirmed Problem Acquired hallux valgus (65562702) Hallux valgus (acquired), right foot (M20.11) Active confirmed Plan Of Treatment No Information Insurance Providers Payer Name Payer Address Payer Phone Subscriber Number Group Number Insured Name Patient Relationship to Insured Coverage Start Date Coverage End Date [facility] [employer] Claims [address] [place] [phone] [id number] Janna Hooper Self - patient is the insured Medical (General) History Medical History History ICD Code Anxiety Arthritis asthma Back,Hip,and Knee pain Fibromyalgia Reflux ( GERD) Chicken pox Surgical History Surgery Date(Month/Year) bladder suspension 2009, 2010, 2011 hysterectomy 2012, 2014, 2018 Hospitalization History Reason Date(Month/Year) CDI MRI bilateral ankles 07/21/20
--- OUTSIDE RECORDS SUMMARY | 2024-10-27 13:14 | XMS_ITS | Encounter Summary ---
Author Organization [facility] Address [address] [place] [address] Care Team Providers Care Occupational Therapy Assist Name Role Phone Audrey Ramirez MD Primary Care Provider Un available Gaudencio Ballard MD Primary Care Provider Unavailabl e Encounter Details Date Type Department Care Team Description 09/13/2017 Business Doc Medical Records [address] [place] [id number] Abstract, Provider Social History Tobacco Use Types [...] on filedocumented in this encounter Care Teams Occupational Therapy Assist Relationship Specialty Start Date End Date Audrey Ramirez MD PCP - General Internal Medicine 01/20/16 Gaudencio Ballard MD PCP - General Internal Medicine 09/16/19 documented as of this encounter
--- OUTSIDE RECORDS SUMMARY | 2024-10-27 13:14 | XMS_ITS | Encounter Summary ---
Author Organization [facility] Address [address] [place] [address] Care Team Providers Care Eyelet Machine Operator Name Role Phone Al Garcia MD Primary Care Provider Unavail able Padmini Baltazar DO Primary Care Pro vider Unavailable Melida Morales MD Primary Care Provider Unavaila ble Audrey Ramirez MD Primary Care Provider Un available Gaudencio Ballard MD Primary Care Provider Unavailabl e Encounter Details Date Type Department Care Team Description 06/22/2014 Telegraph Equipment Maintainer Report Medical Records [address] [place] [address] Elva Livingston MD Social History Tobacco Use Types Packs/Day [...] on filedocumented in this encounter Care Teams Eyelet Machine Operator Relationship Specialty Start Date End [...]
--- OUTSIDE RECORDS SUMMARY | 2024-10-27 13:14 | XMS_ITS | Encounter Summary ---
Author Organization [facility] Address [address] [place] [address] Care Team Providers Care Automation Manager Name Role Phone Al Garcia MD Primary Care Provider Unavail able Padmini Baltazar DO Primary Care Pro vider Unavailable Melida Morales MD Primary Care Provider Unavaila ble Audrey Ramirez MD Primary Care Provider Un available Gaudencio Ballard MD Primary Care Provider Unavailabl e Encounter Details Date Type Department Care Team Description 03/31/2012 Hospital Medical Records [address] [place] [phone] Melissa Hawk Social History Tobacco Use Types [...] on filedocumented in this encounter Care Teams Automation Manager Relationship Specialty Start Date End Date [...]
== END 2024-10-27 13:43 | disposition home or self-care (01) ==
LOC: HO.HMCC 10:51
PROVIDERS: PCP Internal Medicine; Visit Provider Internal Medicine
DX: K13.0 Diseases of lips (principal)

== ENCOUNTER → 2024-10-27 10:50 | Outpatient (BNVA) | payer OTHER, SELFPAY | PROVIDERS: PCP Internal Medicine; Visit Provider Internal Medicine | DX: K13.0 Diseases of lips (principal) | CPT/HCPCS: 96127; 99212 ==

== ENCOUNTER 2024-11-09 09:07 | Outpatient (REF) | payer OTHER, SELFPAY ==
--- NOTE | ~2024-11-09 | XR_ITS ---
EXAMINATION: XR CHEST 2 VIEWS HISTORY: R05.9 - Cough, unspecified COMPARISON: Comparison is made with the prior examination dated 07/10/2024. FINDINGS: PA and lateral views of the chest are submitted. The lungs are expanded and clear. There is no pleural effusion, pneumothorax, or pulmonary vascular congestion. The heart is normal in size. The bones are intact. XR/XR chest 2V IMPRESSION: No acute cardiopulmonary abnormality. Electronically signed by: Gatito Zhao MD 11/09/2024 10:25 AM EDT
[2024-11-09 15:03] LABS: Influenza A PCR NEGATIVE (Negative); Influenza B PCR NEGATIVE (Negative); Resp Syncy Virus RNA Qual PCR NEGATIVE (Negative); SARS COV2 PCR INHOUSE NEGATIVE (Negative)
== END 2024-11-09 09:08 | disposition home or self-care (01) ==
LOC: HO.HMGCX 09:07
PROVIDERS: PCP Internal Medicine; Visit Provider Physician Assistant
DX: R06.02 Shortness of breath (principal); R05.9 Cough, unspecified; R09.89 Other specified symptoms and signs involving the circulatory and respiratory systems; J02.9 Acute pharyngitis, unspecified
CPT/HCPCS: 0241U; 71046; 87070; 87880; 99212

== ENCOUNTER 2024-11-09 09:07 | Outpatient (AMB) | payer OTHER, SELFPAY ==
--- NOTE | 2024-11-09 09:36 | MHC.OFFWIV ---
Intake Vital Signs 11/09/24 09:43 Weight 180 lb BP 118/74 Blood Pressure Location Rt brachial Position Sitting Pulse 107 H Pulse Source Pulse Oximeter Temp 98.0 F Temp Source Oral Pulse Oximetry (%) 98 Oxygen Delivery Method Room Air Intake Visit Reasons: EP-cough,chest congestion, dizziness,sore throat Intake Note: Patient here for cough, chest congestion, SOB, wheezing, chills, dizziness and burning in chest and back that started the 20th. Patient Tobacco Use Status: Never used Tobacco Allergies cat dander [cats] Allergy (Intermediate, Verified 11/09/24 09:44) Itchy Eyes and burning cigarette smoke Allergy (Intermediate, Verified 11/09/24 09:44) migraines latex Allergy (Intermediate, Verified 11/09/24 09:44) Rash trazodone Allergy (Intermediate, Verified 11/09/24 09:44) palpitations Penicillins Adverse Reaction (Intermediate, Verified 11/09/24 09:44) Abdominal Pain tamsulosin Allergy (Severe, Uncoded 11/09/24 09:44) Dizziness Do you need a note to return to daycare/school/sports/work: No HPI HPI Comments History of Present Illness Details History The patient is a 59-year-old female presenting with symptoms suggestive of an acute upper respiratory infection and asthma exacerbation. Symptoms initiated four days prior following exposure to an ill grandchild who had RSV and pnuemonia, prompting concern for infectious spread. She experiences chest tightness, wheezing with cough, and burning sensations in her throat, which complicate breathing. With an asthma background, she utilizes Albuterol nebulizer which offers transient symptom relief for a few hours. She has chills but no fevers and complains of sinus and head pain with episodes of dizziness. Fluid intake is maintained while solid food consumption is minimal, accentuated by an elevated resting heart rate. She has taken Advil Cold & Sinus with minimal relief. Physical Exam General: Cooperative, healthy appearing, comfortable and no acute distress Orientation/consciousness: Patient oriented x3 Limitations: No limitations Head: Normal to inspection Ears: Hearing grossly normal bilaterally, external ears normal and TM's normal bilaterally Nose: Normal external nose present, Normal nares present and No nasal discharge present Face and sinus: Normal facial exam and Yes sinuses tender Mouth: Normal oral and palatal mucosa present and moist mucous membranes Throat: Yes tonsils normal, Yes uvula midline. Posterior oropharynx erythema with possible exudates on right side. Eyes: Appearance normal, both eyes and all related structures Neck: Normal visual inspection Respiratory: Clear but dm to auscultation bilaterally. Normal respiratory effort, able to speak in complete sentences, Actively coughing, wheezing, no respiratory distress, not tachypneic, no tripod positioning and no use of accessory muscles Cardiovascular: tachycardic rate and regular rhythm. Normal S1 and S2. Skin: No rashes or lesions noted Neuro: Patient oriented x3, reports dizziness Extremities: Normal to inspection and Yes no clubbing, cyanosis or edema PFSH Medical History Kidney stones Kidney stones, calcium oxalate Perioral dermatitis Muscle spasm Microscopic hematuria Hot flashes Vitamin D deficiency Fibromyalgia Osteoarthritis Chronic GERD Depression, major, recurrent Surgical History History of esophagogastroduodenoscopy (EGD) H/O colonoscopy History of hysterectomy History of surgery Family History Father No problems noted. Mother Asthma Dementia Alzheimer's disease Paternal Aunt Lung cancer Breast cancer, Onset Age: 62 Brother No problems noted. Brother No problems noted. Brother No problems noted. Sister No problems noted. Sister No problems noted. Sister No problems noted. Paternal Aunt Breast cancer, Onset Age: 70 Other Mental health disorder Social History Household Members: Significant Other and Children Household Members Other:: 2 children Housing: House Are you a primary career resource specialist to a significant other at home: No Do you presently have visiting nurse or other home services: No Alcohol intake: never Patient Tobacco Use Status: Never used Tobacco e-Cigarette/Vaping Use: Never Used service: No Current occupational status: unemployed and disabled Cognitive needs: No Hearing needs: No Vision needs: Yes Female Reproductive History Menstrual Age of Menarche: 15 Review of Systems Const All systems reviewed & are unremarkable except as noted in HPI and below Physical Exam Vital Signs: Last Vital Signs Temp 98.0 F 11/09/24 09:43 Pulse 107 H 11/09/24 09:43 BP 118/74 11/09/24 09:43 Pulse Ox 98 11/09/24 09:43 Oxygen Delivery Method Room Air 11/09/24 09:43 Results AMB Rapid Strep AMB Rapid Strep Negative Last Edit by ALMA Doe on 11/09/24 10:13 Assessment & Plan Assessment & Plan (1) Shortness of breath: Code(s): R06.02 - Shortness of breath Plan: VSS, pt well appearing and PE remarkable for exudates on exam. Rapid strep negative in office, sent culture. Will get CXR as pt very concerned for pneumonia and lungs were a little dim.Management involved prescribing a steroid taper with SoluMedrol for asthma exacerbation to reduce lung inflammation, alongside the introduction of 1000 mg Tylenol every eight hours to her current Advil Cold & Sinus regimen. Diagnostic testing for influenza, COVID-19, RSV, and streptococcal throat infection was ordered due to her respiratory symptoms and findings during examination with results to be provided when available. Cough suppressant benzonatate Tessalon Perles) was prescribed for nighttime relief to improve her sleep by minimizing nocturnal coughing. Immediate symptom relief and full recovery are anticipated with adherence to the given plan. Patient was informed and verbally consented to the use of an ambient scribe for clinic note documentation during this visit Orders: Orders AMB Rapid Strep Screen Today Z13.9 - Encounter for screening, unspecified SARS-CoV2/FLU/RSV Today R09.89 - Other specified symptoms and signs involving the circulatory and respiratory systems XR chest 2V Today R05.9 - Cough, unspecified Throat Culture Today J02.9 - Acute pharyngitis, unspecified Medications: New methylprednisolone PO PER PKG DIR for 6 days 21 ea 0RF benzonatate 200 mg PO BEDTIME PRN 10 caps 0RF cough Coding Level of Care Code Est Pt Level 4 (25384) Diagnoses Shortness of breath R06.02
[2024-11-09 09:43] VITALS: BP 118/74; PULSE 107; TEMP 36.7; O2SAT 98
== END 2024-11-09 10:17 | disposition home or self-care (01) ==
PROVIDERS: PCP Internal Medicine; Visit Provider Physician Assistant
DX: Z13.9 Encounter for screening, unspecified (principal); R06.02 Shortness of breath

== ENCOUNTER → 2024-11-09 10:16 | Outpatient (BNV) | payer OTHER, SELFPAY | PROVIDERS: PCP Internal Medicine; Visit Provider Radiology Diagnostic Radiology | DX: R05.9 Cough, unspecified (principal) | CPT/HCPCS: 71046 ==

== ENCOUNTER 2024-11-18 09:52 | Outpatient (AMB) | payer OTHER, SELFPAY ==
--- NOTE | 2024-11-18 09:54 | MHC.PC.OV ---
Vital Signs 11/18/24 09:55 Height 5 ft 4 in Weight 187 lb 8 oz BMI 32.2 BP 110/72 Blood Pressure Location Rt brachial Position Sitting Pulse 83 Pulse Source Pulse Oximeter Pulse Oximetry (%) 96 Oxygen Delivery Method Room Air Intake Visit Reasons: follow up Allergies cat dander [cats] Allergy (Intermediate, Verified 11/18/24 10:02) Itchy Eyes and burning cigarette smoke Allergy (Intermediate, Verified 11/18/24 10:02) migraines latex Allergy (Intermediate, Verified 11/18/24 10:02) Rash trazodone Allergy (Intermediate, Verified 11/18/24 10:02) palpitations Penicillins Adverse Reaction (Intermediate, Verified 11/18/24 10:02) Abdominal Pain tamsulosin Allergy (Severe, Uncoded 11/09/24 09:44) Dizziness Medication List - Last Reconciled 11/18/24 by Gaudencio Ballard MD [Adult Sanitary Wipes As directed] albuterol sulfate 90 mcg/actuation 2 puffs inhalation Q6H PRN albuterol sulfate 2.5 mg (3 mL) inhalation QID PRN amitriptyline 10 mg PO BEDTIME disposable gloves (Disposable Latex-Free Gloves) Use As directed gabapentin 300 mg PO BEDTIME 90 days lorazepam mg PO DAILY magnesium 250 mg PO BID metoprolol succinate ER mg PO DAILY nebulizers with supplies and all needed equipment, to use for updraft treatments pantoprazole 40 mg PO BID [Poise incontinence pads Requires poise due to allergies. NS] pyridoxine (vitamin B6) 100 mg PO DAILY [suction grab bars As directed] tacrolimus 0.03% topical DAILY tramadol 50 mg PO BID PRN 15 days turmeric mg PO [Updraft machine tubing As directed] venlafaxine ER 150 mg PO BEDTIME 90 days Tobacco use date assessed: 11/18/24 Dental Screening Dental Screen Date: 11/18/24 Did you have a dental visit in the last 12 months?: Yes Did you have a dental problem in the last 6 months where you did not have access to dental care?: No Was dental information given to patient?: Patient has dentist HPI follow up HPI Details Hospital discharge follow-up with the daughter - The patient is a 59-year-old female presenting with shortness of breath. - Hospitalized from October 14 to November 15 due to asthma exacerbation. [facility] - Diagnosed with a viral infection that led to breathing difficulties and was provided with IV steroids and asthma treatment. - Continues to experience dizziness, ear pain, and a burning sensation in the throat post-hospitalization. - Asthma exacerbation occurred alongside a viral respiratory illness, referred to as Human metapneumovirus. - Prescribed prednisone and nebulizer treatments in urgent care, continuing inhaler use post-discharge. - Breathing improved; however, additional symptoms such as chest pain, dizziness, and throat burning persist. - patient was discharged with Symbicort inhaler to be taken 2 times a day which she is and is rinsing her mouth after Later on we received notes from hospital Hospital course as following She presented to emergency room with acute respiratory distress, patient was found to be tachycardic but hemodynamically stable, chest x-ray was completed that showed no acute pathology and CBC as well as BMP was performed and was unremarkable. Respiratory viral panel was completed and patient was found to be positive for human metapneumovirus. Patient received supportive care, DuoNeb and steroid while in the hospital and respiratory status improved. She was eventually discharged home Patient also has a history of fibromyalgia and is taking gabapentin for that Chronic GERD stable she is also prediabetic Medications - Prednisone (from urgent care for asthma exacerbation) - Symbicort (maintenance inhaler for asthma) - Gabapentin 300 mg (ongoing medication) - Albuterol solution for nebulizer (for asthma management) Problem List - Asthma exacerbation - Fibromyalgia - Bronchitis - Viral infection, unspecified type (referred to as Human metapneumovirus in conversation) - Ear pain, non-infective Patient Instructions - Continue using the Symbicort inhaler twice daily. - Use the Albuterol nebulizer as needed for relief of shortness of breath. - Rest and allow time for recovery; symptoms may persist for 2-3 weeks. - Stay hydrated and consume warm fluids like chicken soup. - Gargle with warm salt water for throat relief. Review of Systems General: No fever no chills neurological: No headaches no dizziness ear nose throat: No sore throat no hearing difficulty no ear pain cardiovascular: No syncope, no chest pain, no palpitations gastrointestinal: No nausea vomiting or diarrhea endocrine: No polyuria polydipsia no heat intolerance genitourinary: No dysuria skin: No new complaints Physical Exam general: No acute distress HEENT: Ear pain, throat burning, no infection, some inflammation neck: Supple respiratory system: Able to talk in full sentences, no audible wheeze, no stridor cardiovascular: S1-S2 gastrointestinal: No pain extremities: No new findings DATABASE SECURITY ADMINISTRATOR: Alert awake oriented x3 motor sensory intact skin: Normal turgor PFSH Medical History Kidney stones Kidney stones, calcium oxalate Perioral dermatitis Muscle spasm Microscopic hematuria Hot flashes Vitamin D deficiency Fibromyalgia Osteoarthritis Chronic GERD Depression, major, recurrent Surgical History History of esophagogastroduodenoscopy (EGD) H/O colonoscopy History of hysterectomy History of surgery Family History Father No problems noted. Mother Asthma Dementia Alzheimer's disease Paternal Aunt Lung cancer Breast cancer, Onset Age: 62 Brother No problems noted. Brother No problems noted. Brother No problems noted. Sister No problems noted. Sister No problems noted. Sister No problems noted. Paternal Aunt Breast cancer, Onset Age: 70 Other Mental health disorder Social History Household Members: Significant Other and Children Household Members Other:: 2 children Housing: House Are you a primary home care nurse to a significant other at home: No Do you presently have visiting nurse or other home services: No Alcohol intake: never Patient Tobacco Use Status: Never used Tobacco e-Cigarette/Vaping Use: Never Used service: No Current occupational status: unemployed and disabled Cognitive needs: No Hearing needs: No Vision needs: Yes Female Reproductive History Menstrual Age of Menarche: 15 Questionnaire PHQ-9 Over the last 2 weeks, how often have you been bothered by any of the following problems? 01880 - PHQ-9 Billing: Patient declined-do not bill Source: Developed by Drs. Gatito Agustin, Catina Hunter, Adrien Liao and colleagues, with an educational kori from [employer]. Thrive Questionnaire Date Thrive assessed: 11/18/24 I am a: Patient What is your living situation today?: I have a steady place to live Within the past 12 months, did the food you bought not last and you didn't have the money to get more?: Never true Within the past 12 months, did you worry whether your food would run out before you got money to buy more?: Never true Do you have trouble paying for medicines?: No Do you have trouble getting transportation to medical appointments?: No Do you have trouble paying your heating and electricity bill?: No Do you have trouble taking care of your child, family member or friend?: No Do you have trouble with day-to-day activities such as bathing, preparing meals, shopping, managing finances, etc.?: I choose not to answer this question Are you currently unemployed and looking for a job?: Yes Are you interested in more education?: No Please select the resources that you would like help with: None Currently or been in a relationship where the following occur: No concerns reported THRIVE Score: 0 AUDIT C Alcohol Use Questionnaire (AUDIT-C) 1. How often do you have a drink containing alcohol?: Never 3. How often do you have six or more drinks on one occasion?: Never Total Score: 0 Score Reviewed/Action Taken: Yes OLI-7 AMB Questionnaire OLI-7 Date OLI - 7 assessed: 11/18/24 Feeling nervous, anxious, or on edge: 0 = Not at all Not being able to stop or control worryin = Not at all Worrying too much about different things: 0 = Not at all Trouble relaxin = Not at all Being so restless that it is hard to sit still: 0 = Not at all Becoming easily annoyed or irritable: 0 = Not at all Feeling afraid as if something awful might happen: 0 = Not at all Total OLI-7 score (0-4 normal; 5-9 mild; 10-14 moderate; 15-21 severe): 0 Source: Developed by Drs. Gatito Agustin, Catina Hunter, Adrien Liao and colleagues, with an educational kori from [employer]. OLI-7 Assessment Billing OLI-7 Assessment Tool: OLI-7 Assessment 57223 Physical exam (Primary Care) Vital Signs: Last Vital Signs Pulse 83 11/18/24 09:55 BP 110/72 11/18/24 09:55 Pulse Ox 96 11/18/24 09:55 Oxygen Delivery Method Room Air 11/18/24 09:55 BMI result Body Mass Index 32.2 Tobacco/Smoking Status: Tobacco use Status Tobacco use date assessed 11/18/24 11/18/24 09:56 Patient Tobacco Use Status Never used Tobacco 11/18/24 09:56 e-Cigarette/Vaping Use Never Used 11/18/24 09:56 Thrive Assessment: Date of Thrive Assessment Date Thrive assessed 11/18/24 11/18/24 09:56 Currently or been in a relationship where the following occur: No concerns reported Coding Level of Care Code Est Pt Level 5 (20343) Diagnoses Hospital discharge follow-up Z09 Human metapneumovirus (hMPV) pneumonia J12.3 Shortness of breath R06.02 Chronic fatigue R53.82 Fatigue type: chronic, unspecified Additional Codes OLI-7 Assessment Billing - OLI-7 Assessment Tool: OLI-7 Assessment 03626 ([id number]) Time Spent (min) 40 Comment Reviewing hospital notes, [id number], coordination of care Assessment & Plan Assessment & Plan (1) Hospital discharge follow-up: Code(s): Z09 - Encounter for follow-up examination after completed treatment for conditions other than malignant neoplasm Category: Medical (2) Human metapneumovirus (hMPV) pneumonia: Code(s): J12.3 - Human metapneumovirus pneumonia Category: Medical (3) Shortness of breath: Code(s): R06.02 - Shortness of breath Category: Medical (4) Fatigue: Code(s): R53.83 - Other fatigue Category: Medical Qualifiers: Fatigue type: chronic, unspecified Qualified Code(s): R53.82 - Chronic fatigue, unspecified Plan Hospital discharge follow-up with the daughter - The patient is a 59-year-old female presenting with shortness of breath. - Hospitalized from October 14 to November 15 due to asthma exacerbation. [facility] - Diagnosed with a viral infection that led to breathing difficulties and was provided with IV steroids and asthma treatment. - Continues to experience dizziness, ear pain, and a burning sensation in the throat post-hospitalization. - Asthma exacerbation occurred alongside a viral respiratory illness, referred to as Human metapneumovirus. - Prescribed prednisone and nebulizer treatments in urgent care, continuing inhaler use post-discharge. - Breathing improved; however, additional symptoms such as chest pain, dizziness, and throat burning persist. - patient was discharged with Symbicort inhaler to be taken 2 times a day which she is and is rinsing her mouth after Later on we received notes from hospital Hospital course as following She presented to emergency room with acute respiratory distress, patient was found to be tachycardic but hemodynamically stable, chest x-ray was completed that showed no acute pathology and CBC as well as BMP was performed and was unremarkable. Respiratory viral panel was completed and patient was found to be positive for human metapneumovirus. Patient received supportive care, DuoNeb and steroid while in the hospital and respiratory status improved. She was eventually discharged home Patient also has a history of fibromyalgia and is taking gabapentin for that Chronic GERD stable she is also prediabetic Medications - Prednisone (from urgent care for asthma exacerbation) - Symbicort (maintenance inhaler for asthma) - Gabapentin 300 mg (ongoing medication) - Albuterol solution for nebulizer (for asthma management) Problem List - Asthma exacerbation - Fibromyalgia - Bronchitis - Viral infection, unspecified type (referred to as Human metapneumovirus - Ear pain, non-infective Patient Instructions - Continue using the Symbicort inhaler twice daily. - Use the Albuterol nebulizer as needed for relief of shortness of breath. - Rest and allow time for recovery; symptoms may persist for 2-3 weeks. - Stay hydrated and consume warm fluids like chicken soup. - Gargle with warm salt water for throat relief.
[2024-11-18 09:55] VITALS: BP 110/72; PULSE 83; O2SAT 96; BMI 32.2
--- OUTSIDE RECORDS SUMMARY | 2024-11-18 11:15 | XMS_ITS ---
Author Organization [facility] Address [address] [place] [address] Care Team Providers Care Load Test Mechanic Name Role Phone Elio MATHIS, Gaudencio Primary Care Provider UnavailBrock Caal Unavailable [phone] Madison Cox Unavailable [phone] Medications Medication SIG (Take, Route, Frequency, Duration) [...] Active Encounters Encounter Location Date Provider Diagnosis [address] [address] 11/17/2024 Madison Cox Plan Of Treatment No Information Progress Notes * Lasha MALIKeDOB:[birth year] (59 yo F)Acc No.[id number]:11/17/2024 Progress Notes Patient:?Janna MALIK Provider:?Madison Cox DPM :1965???Age:59 Y???Sex:Female D ate:11/17/2024 Address:[address] [place], [place] [id number] Pcp:Gaudencio Ballard MD Subjective: * Chief Complaints: * ??? * Medical History:? * Medications:?Taking Gabapent in 300 MG Capsule 1 capsule Orally Once a day , Taking Prilosec , Taking Diclofenac Sodium 75 MG Tablet Delayed Release 1 tablet with food Orally Twice a day , Not-Taking/PRN Physical Therapy . . . . 2-3x/week Objective: * Vitals:? Assessment: Plan: * Treatment: * Images: * The named appointment provid er may or may not be the originator of this progress note, and it is not deemed complete until electronically signed by the appointment provider. Sign off status: Pending * Provider:?Madison Cox DPM Date:?2024 Generated for Sofi ayoub/Keren/Rhea on:?11/18/2024 11:15 AM EDT
--- OUTSIDE RECORDS SUMMARY | 2024-11-18 11:15 | XMS_ITS | Clinical Summary ---
Author Organization [facility] Address [address] [place] [address] Care Team Providers Care Integration Director Name Role Phone Margie Pham MD Primary Care Provider [phone] Allergies Active Allergy Reactions Criticality Noted Date [...] age to complete this topic Care Teams Integration Director Relationship Specialty Start Date End Date Margie Pham MD PCP - General Internal Medicine 10/25/17
--- OUTSIDE RECORDS SUMMARY | 2024-11-18 11:15 | XMS_ITS | Clinical Summary ---
Author Organization [facility] Address [address] [address] Phone Care Team Providers Care Travel Consultant Name Role Phone Gaudencio Ballard MD Primary Care Provider [phone] Allergies Active Allergy Reactions Criticality Noted Date [...] cholecalciferol (VITAMIN D-3 SUPER STRENGTH) 50 MCG (2000 UT) tablet Vitamin D TABS oral in [...] day Do not crush or chew. Active Active Problems Problem Noted Date Diagnosed Date Chronic kidney disease, stage 2 (mild) Urinary incontinence 04/11/2023 04/11/2023 Foot pain 05/19/2019 [...] 04/11/2023 04/11/2023 Depressive disorder 09/05/2011 04/11/2023 04/11/20 23 Overview (04/11/2023): Zoloft and wellbutrin not tolerated [...] Care Team (Late st Contact Info) Description 12/15/2024 10:45 AM EDT Office Visit [facility] P.CRichard [address] [address] Dania Celaya ARNP [address] [address] Health Maintenance Due Date Last [...] PPSV23 or PCV20) 06/12/2016 04/17/2016 Influenza Vaccine (Season Ended) 2025 Insurance [facility] ONE CARE DUAL SNP ([id number]) [facility] ONE CARE DUAL SNP ([id number]) Care Teams Travel Consultant Relationship Specialty Start Date End Date Gaudencio Ballard MD [address] [place] [id number] PCP - General Internal Medicine 12/12/22
--- OUTSIDE RECORDS SUMMARY | 2024-11-18 11:15 | XMS_ITS | Patient Health Record ---
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 . . 2-3x/week for 3- 4 weeks Not-Taking Gabapentin 300 MG 1 capsule Orally Onc e a day for 30 day(s) Active Prilosec Active Diclofenac Sodium 75 MG 1 tablet with fo od Orally Twice a day for 30 days 11/05/2024 Active Social History Tobacco Use: Social History Observation Description Date Details (start date - stop date) Never Smoker NA - NA Tobacco use other than smoking: Question Answer Notes Are you an other tobacco user? No Tobacco Control (Standard) Question Answer Notes Tobacco use: Nonsmoker Additional Findings: Tobacco non-user Current no nsmoker AUDIT-C (Standard) Question Answer Notes Did you have a drink containing alcohol in the p ast year? No Points 0 Interpretation Negative Problems Problem Type SNOMED Code ICD Code Onset Dates Problem Status W/U Status Risk Notes Problem Gout ([id number]) Gout of right foot (M10.9) Active confirmed Rx drug management (4) Vital Signs Blood pressure diastolic 80 mm Hg 11/05/2024 Height 5ft in 11/05/2024 Blood pressure systolic 120 mm Hg 11/05/2024 Weight 179 lbs 11/05/2024 BMI 34.95 kg/m2 11/05/2024 Encounters Encounter Location Date Provider Diagnosis [address] [address] 11/05/2024 Brock Ordonez Gout of right foot M10.9 and Pain in right toe(s) M79.[address] [facility] [address] 11/09/2024 Brock Ordonez [facility] [address] 11/09/2024 Brock Ordonez [facility] [address] 11/17/2024 Brock Ordonez Assessments Encounter Date Diagnosis (ICD Code) Assessment Notes Treatment Notes Treatment Clinical Notes Section Notes 11/05/2024 Pain in right toe(s) (ICD-10 - M79.674) 11/05/2024 Gout of right foot (ICD-10 - M10.9) Rx drug management (4) Patient Educated with: GOUT.pdf (GOUT.pdf) Patient Educated with: LOW PURINE DIET.pdf (LOW PURINE DIET.pdf) CBC with diff also ordered 11/05/2024 Other Plan Of Treatment Pending Test Test Name Order Date *Uric Acid, Serum 11/05/2024 *Sedimentation Rate-Westergren X ray : Foot, right 3V 11/05/2024 Insurance Providers Payer Name Payer Address Payer Phone Subscriber Number Group Number Insured Name Patient Relationship to Insured Coverage Start Date Coverage End Date [facility] [employer] Claims [address] [place] Epstein [id number] Janna Hooper Self - patient is the insured Medical (General) History Medical History History ICD Code Anxiety Arthritis asthma Back,Hip,and Knee pain Fibromyalgia Reflux ( GERD) Chicken pox Surgical History Surgery Date(Month/Year) bladder suspension 2009, 2010, 2012 hysterectomy 2012, 2014, 2019 Hospitalization History Reason Date(Month/Year) [facility] MRI bilateral ankles 07/21/20
--- OUTSIDE RECORDS SUMMARY | 2024-11-18 11:15 | XMS_ITS | Clinical Summary ---
Author Organization [facility] [employer] Address [address] [place] [address] Phone Care Team Providers Care Children'S Choir Director Name Role Phone Gaudencio Ballard MD Primary Care Provider [phone] Allergies Active Allergy Reactions Criticality Noted Date [...] meals). Active MULTIVITAMIN ORAL Take by mouth. Activ e amitriptyline (ELAVIL) 10 mg tablet Take by [...] 90 each 3 5 09/29/19 26 Active Active Problems Problem Noted Date Diagnosed [...] Description 09/29/2024 3:00 PM EST Office Visit [facility] [address] [facility] [address] [place] [address] Jese Kidd MD PTSD (post-traumatic stress disorder) [...] Surgery Date Site/Laterality Comments ESOPHAGOGASTRODUODENOSCOPY 01/21/07 PROCEDURE: OK ESOPHAGOGASTRODUODENOSCOPY TRANSORAL DIAGNOSTIC; COMMENT: Normal PARTIAL HYSTERECTOMY 03/2010 PROCEDURE: OK SUPRACERVICAL ABDL HYSTER W/WO RMVL TUBE OVARY; COMMENT: Da Dragan TLH with sacropexy, mesh urethral support OTHER SURGICAL HISTORY PROCEDURE: FEMALE SLING SYS W/WO MATRL OTHER SURGICAL HISTORY PROCEDURE: OK RMVL PROSTC MATRL/MESH ABDL WALL FOR INFECTION BREAST SURGERY 2012 Right PROCEDURE: OK UNLISTED PROCEDURE BREAST; COMMENT: rt cyst removed [...] Procedure Name Priority Date/Time Associated Diagnosis Comments CBC WITH AUTO DIFFERENTIAL Routine 11/06/2024 1:55 PM EDT Gout CBC AND DIFFERENTIAL Routine 11/06/2024 1:55 PM EDT Gout SEDIMENTATION RATE Routine 11/06/2024 1: 55 PM EDT Gout URIC ACID Routine 11/06/2024 1:55 PM EDT Gout ECG 12-LEAD Routine 09/29/2024 3:25 PM EST Palpitations SCR MAMMO BI INCL CAD Routine 09/16/2019 11:31 AM EST Encounter for screening mammogram for malignant neoplasm of breast HEPATITIS C SCREENING Routine 06/21/2008 from Last 3 Months or Most Recently Relevant to Health Maintenance Results * (ABNORMAL) CBC auto differential (11/06/2024 1:55 PM EDT) WBC 5.8 4.8 - 10.8 K/mcL LAB HEMETOLOGY METHOD 11/06/2024 2:[address] [facility] RBC 4.70 3.80 - 4.80 M/mcL LAB HEMETOLOGY METHOD 11/06/2024 2:[address] [facility] Hemoglobin 14.0 11.5 - 16.0 g/dL LAB HEMETOLOGY METHOD 11/06/2024 2:[address] [facility] Hematocrit 43.2 35.0 - 47.0 % LAB HEMETOLOGY METHOD 11/06/2024 2:[address] [facility] MCV 92.5 79.0 - 98.0 FL LAB HEMETOLOGY METHOD 11/06/2024 2:[address] [facility] MCH 30.0 27.0 - 32.0 pcg LAB HEMETOLOGY METHOD 11/06/2024 2:[address] [facility] MCHC 32.4 32.0 - 37.0 g/dL LAB HEMETOLOGY METHOD 11/06/2024 2:[address] [facility] RDW 12.7 11.0 - 15.0 % LAB HEMETOLOGY METHOD 11/06/2024 2:26 PM [facility] Platelets 378 130 - 400 K/mcL LAB HEMETOLOGY [facility] MPV 10.5 7.0 - 11.0 FL LAB HEMETOLOGY METHOD [facility] NRBC 0.0 <1.0 % LAB HEMETOLOGY METHOD 11/06/2024 2:26 PM [facility] NRBC Absolute 0.00 <0.10 K/mcL LAB HEMETOLOGY METHOD 11/06/2024 2:26 PM [facility] Neutrophils Relative 53.4 % LAB HEMETOLOGY METHOD 11/06/2024 2:26 PM [facility] Lymphocytes Relative 24.4 % LAB HEMETOLOGY METHOD 11/06/2024 2:26 PM [facility] Monocytes Relative 17.6 % LAB HEMETOLOGY METHOD 11/06/2024 2:26 PM [facility] Eosinophils Relative 2.8 % LAB HEMETOLOGY METHOD 11/06/2024 2:26 PM [facility] Basophils Relative 1.5 % LAB HEMETOLOGY METHOD 11/06/2024 2:26 PM [facility] Immature Granulocytes Relative 0.3 % LAB HEMETOLOGY METHOD 11/06/2024 2:26 PM [facility] Neutrophils Absolute 3.10 1.50 - 7.00 K/mcL LAB HEMETOLOGY METHOD 11/06/2024 2:26 PM [facility] Lymphocytes Absolute 1.42 1.00 - 5.00 K/mcL LAB HEMETOLOGY METHOD 11/06/2024 2:[address] [facility] Monocytes Absolute 1.02(H) 0.20 - 1.00 K/mcL LAB HEMETOLOGY METHOD 11/06/2024 2:[address] [facility] Eosinophils Absolute 0.16 0.00 - 0.50 K/mcL LAB HEMETOLOGY METHOD 11/06/2024 2:[address] [facility] Basophils Absolute 0.09 0.00 - 0.20 K/mcL LAB HEMETOLOGY METHOD 11/06/2024 2:[address] [facility] Immature Granulocytes Absolute 0.02 0.00 - 0.03 K/[facility] LAB HEMETOLOGY METHOD 11/06/2024 2:[address] [facility] Blood Venous blood specimen / Unknown Venipuncture / Unknown 11/06/2024 1:55 PM EDT 11/06/2024 2:15 PM EDT us Brock TSAI LAB BLOOD ORDERABLES Final Resul t Performing Organization Address City/[facility]/ZIP Co de Phone Number [facility] [address] [place] [address], [place] [phone] * Sedimentation rate (11/06/2024 1:55 PM EDT) Sed Rate 24 0 - 30 mm/hr LAB HEMETOLOGY METHOD 11/06/2024 2:[address] [facility] Blood Venous blood specimen / Unknown Venipuncture / Unknown 11/06/2024 1:55 PM EDT 11/06/2024 2:15 PM EDT us Brock Ordonez DPM LAB BLOOD ORDERABLES Final Resul t [facility] [address] [place] [address], [place] [phone] * Uric acid (11/06/2024 1:55 PM EDT) Uric Acid 4.1 3.1 - 7.8 mg/dL LAB CHEMISTRY METHOD 11/06/2024 3:[address] [facility] Blood Venous blood specimen / Unknown Venipuncture / Unknown 11/06/2024 1:55 PM EDT 11/06/2024 2:14 PM EDT Brock Ordonez DPM LAB BLOOD ORDERABLES Final Resul t [facility] [address] [place] [address], [place] [phone] * ECG 12 lead (09/29/2024 3:25 PM EST) [facility] Ventricular Rate ECG 72 BPM GEMUSE Atrial Rate 72 BPM GEMUSE P-R Interval 148 ms GEMUSE QRS Duration 70 ms GEMUSE Q-T Interval 392 ms GEMUSE QTc 429 ms GEMUSE P Wave [place] 37 degrees GEMUSE R [place] 16 degrees GEMUSE T [place] 35 degrees GEMUSE ECG Interpretation Normal sinus [...] Most Recently Relevant to Health Maintenance Insurance [facility] ALLIANCE MEDICAID Care Teams Children'S Choir Director Relationship Specialty Start Date End Date Gaudencio Ballard MD [address] [place] [address] PCP - General Internal Medicine 09/16/19
--- OUTSIDE RECORDS SUMMARY | 2024-11-18 11:15 | XMS_ITS | Referral Summary ---
Author Organization [facility] Address [address] [place] [address] Care Team Providers Care Water Hauler Name Role Phone Margie Pham MD Primary [...] on file Medical Devices Implanted Type Area Industrial Design Engineer Device Identifier Shelf Expiration Date Model / Serial / Lot Mesh Pelvic Prolapse Polypropylene Y Shape [id number] [facility] - [id number] - [id number] Implanted:Qty: 1 on 10/13/2018 by Liat Sheikh MD at [facility] Mesh N/A: Vagina COLOPLAST 05/15/2021 [id number] / [id number] / [id number] Insurance [facility] ALLIANCE Advance Directives Documents on File Type Date Recorded 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
--- OUTSIDE RECORDS SUMMARY | 2024-11-18 11:15 | XMS_ITS ---
Author Organization [facility] Address [address] [place] [phone] Care Team Providers Care Copyright Manager Name Role Phone Eloi MATHIS, Asma Primary Care Provider Brock Alcocer [phone] REASON FOR VISIT No show Encounters Encounter Location Date Provider Diagnosis [facility] [address] [place] [address] 11/17/2024 Brock Ordonez Plan Of Treatment No Information Progress Notes * Lasha MALIKeDOB:[birth year] (59 yo F)Acc No.[id number]:11/17/2024 Patient:?Janna MALIK :1965???Age:59 Y???Sex:Female Address:[address] [place] [address], [phone] * true * Date:? Generated for Rose Maryi mega/Keren/eTransmitting on:?11/18/2024 11:15 AM EDT
--- OUTSIDE RECORDS SUMMARY | 2024-11-18 11:15 | XMS_ITS | Continuity of Care Document ---
Author Organization [facility] ter Address [address] [place] [id number] Care Team Providers Care Divinity Teacher Name Role Phone Elio MATHIS, [facility] Primary Care Physician [place] [facility] [place]): [place] 11/15/24 [facility] [address] [place] [id number] Encounter Diagnosis Asthma exacerbation(Final) - 11/11/24 Discharge Disposition: A-D/C Home Attending Physician: Michael Reyes DO Admitting Physician: Willis Rios MD Referring Physician: Not on Staff, Referring MD Encounter Type: Disch IP Allergies, Adverse Reactions, Alerts Substance Criticality Severity Reaction Reaction Severity Status penicillin Active diphenhydrAMINE Feeling jitt paty Somnolence Palpitations - rapid hyperactivity sommulence palpitation Active melatonin Palpitations - fluttering Active Latex rash Active traMADol Active traZODone Palpitations Active Medications acetaminophen 500 mg oral tablet 1 tablet = 500 mg, By Mouth, Daily, PRN as needed, 0 Refills, Maintenance, 11/11/24 8:33:00 AM EDT, Tablet, Partial fill upon patient request if the prescription is for a schedule II opioid drug. Start Date: 11/11/24 Status: Ordered Repeat number: 1 Albuterol (Eqv-ProAir HFA) 90 mcg/inh inhalation aerosol 2 inhalation = 180 mcg, Inhalation, Every 6 hours, PRN Wheezing/Shortness of Breath Start Date: 11/11/24 Status: Ordered Repeat number: 1 albuterol 0.083% inhalation solution 3 mL = 2.5 mg, Neb, 4 times a day, PRN Wheezing/Shortness of Breath Start Date: 11/11/24 Status: Ordered Repeat number: 1 Fish Oil 1000 mg oral capsule 1 capsule = 1,000 mg, By Mouth, Daily, 0 Refills, Maintenance, 11/11/24 8:31:00 AM EDT, Capsule, Partial fill upon patient request if the prescription is for a schedule II opioid drug. Start Date: 11/11/24 Status: Ordered Repeat number: 1 gabapentin 300 mg oral capsule 300 mg, 1, capsule, By Mouth, Daily at bedtime, Refills 0, Maintenance, 11/11/24 9:17:00 AM EDT, Partial fill upon patient request if the prescription is for a schedule II opioid drug. Start Date: 11/11/24 Status: Ordered Repeat number: 1 magnesium gluconate 250 mg oral tablet 1 tablet = 250 mg, By Mouth, 2 times a day, 0 Refills, Maintenance, 11/11/24 8:29:00 AM EDT, Tablet,Partial fill upon patient request if the prescription is for a schedule II opioid drug. Start Date: 11/11/24 Status: Ordered Repeat number: 1 metroNIDAZOLE 0.75% topical cream APPLY A THIN LAYER TO AFFECTED AREA ON THE FACE TWICE DAILY NEEDED. Start Date: 11/11/24 Status: Ordered Repeat number: 1 pantoprazole 40 mg oral delayed release tablet 1 tablet = 40 mg, By Mouth, 2 times a day Start Date: 11/11/24 Status: Ordered Repeat number: 1 Symbicort 80mcg/4.5mcg Inhaler 2, puffs, Inhalation, 2 times a day, # 10.2 Gm, Refills 3, Tot. Refills 3, Maintenance, 11/15/24 9:51:00 AM EDT, Aerosol, Route to Pharmacy Electronically, [id number], [facility], 165, cm, 11/15/24 7:56:00 EDT, Height, 89.9, kg, 11/11/24 9:02:00 EDT, Dry Weight Start Date: 11/15/24 Status: Ordered Quantity: 10.2 Unit: g Repeat number: 4 tacrolimus 0.03% topical ointment 1 application, Topically, Daily, # 30 Gm, 0 Refills, Maintenance, 11/11/24 8:28:00 AM EDT, Ointment,Partial fill upon patient request if the prescription is for a schedule II opioid drug. Start Date: 11/11/24 Status: Ordered Quantity: 30.0 Unit: g Repeat number: 1 Turmeric 400mg Turmeric 400mg, 1, tablet, By Mouth, Daily, Refills 0, Maintenance, 11/11/24 8:31:00 AM EDT, Supply Start Date: 11/11/24 Status: Ordered Repeat number: 1 Vitamin B6 100 mg oral tablet 1 tablet = 100 mg, By Mouth, Daily, 0 Refills, Maintenance, 11/11/24 8:29:00 AM EDT, Tablet, Partialfill upon patient request if the prescription is for a schedule II opioid drug. Start Date: 11/11/24 Status: Ordered Repeat number: 1 Problem List Condition Confirmation Course Effective Dates Status Health St atus Informant Asthma Confirmed Active Fibromyalgia Confirmed Active GERD (gastroesophageal reflux disease) Confirmed Active Kidney stone Confirmed Active Obese class I Confirmed Active UI - Urinary incontinence Confirmed Active Results Radiology Reports * Exam Date Time Procedure Performing Provider Status 11/11/24 5:54 AM Chest Portable Peter Santos; Corwin (Johnnie ified) Notes: (Chest Portable) Reason For Exam: Shortness of Breath RESULT: Chest Portable Examination: Portable chest performed on 11/11/2024 History: Chest pain. Shortness of breath. Findings: A frontal view of the chest is compared to a prior study dated 11/15/23. The cardiac and mediastinal silhouettes are within normal limits. The lungs are clear. The osseous and soft tissue structures are unremarkable. IMPRESSION: There is no acute cardiopulmonary disease. WSN: [id number] Ordering Physician: Xochitl Vogel Dictated By: Melissa Jorge MD Dictated Date/Time: 11/11/24 7:41 am Reviewed By: Melissa Jorge MD Signed By: Melissa Jorge MD Signed Date/Time: 11/11/24 7:41 am Transcribed By: JOVON Transcribed Date/Time: 11/11/24 7:40 am Vital Signs Most recent to oldest [Reference Range]: 1 2 3 Height 165 cm (11/15/24 7:56 AM) 165 cm (11/14/24 4:53 PM) 165 cm (11/11/24 9:02 AM) Weight 80.5 kg (11/14/24 4:00 PM) 89.9 kg (11/11/24 9:02 AM) 82 kg (11/11/24 4:28 AM) Oxygen Saturation [94-100 %] 93 % *L* (11/15/24 7:56 AM) 94 % (11/15/24 2:00 AM) 95 % (11/14/24 9:00 PM) Pulse Rate [55-90 bpm] 89 bpm (11/15/24 7:56 AM) 77 bpm (11/15/24 2:00 AM) 101 bpm *H* (11/14/24 9:00 PM) Body Mass Index [18.5-24.99 kg/m2] 33.02 kg/m2 *>HHI* (11/11/24 9:02 AM) 30.12 kg/m2 *>HHI* (11/11/24 4:28 AM) Blood Pressure [90-138/55-84 mm Hg] 149/94mm Hg *H* (11/15/24 7:56 AM) 106/60mm Hg (11/15/24 2:00 AM) 140/89mm Hg *H* (11/14/24 9:00 PM) Respiratory Rate [16-30 br/min] 18 br/min (11/15/24 7:56 AM) 16 br/min (11/15/24 2:00 AM) 16 br/min (11/14/24 9:00 PM) Temperature [96.8-100.4 DegF] 97.7 DegF (11/15/24 7:56 AM) 97.7 DegF (11/15/24 2:00 AM) 98.1 DegF (11/14/24 9:00 PM) Liters per Minute 2 L/min (11/14/24 8:00 AM) 2 L/min (11/14/24 6:06 AM) 2 L/min (11/14/24 4:00 AM) Mode of Delivery (Oxygen) Room air (11/15/24 7:56 AM) Room air (11/15/24 2:00 AM) Room air (11/14/24 9:00 PM) Blood pressure sites Arm, right (11/15/24 7:56 AM) Arm, left (11/15/24 2:00 AM) Arm, right (11/14/24 9:00 PM) Temperature Route Oral (11/15/24 7:56 AM) Oral (11/15/24 2:00 AM) Oral (11/14/24 9:00 PM) Dry Weight 89.9 kg (11/11/24 9:02 AM) 82 kg (11/11/24 4:28 AM) Weight Obtained Via Bed scale (11/14/24 4:00 PM) Bed scale (11/11/24 9:02 AM) Standing scale (11/11/24 4:28 AM) Dry Weight Obtained Via Bed scale (11/11/24 9:02 AM) Standing scale (11/11/24 4:28 AM) Social History Social History Type Response Smoking Status Never smoker entered on: 08/07/13 Sex Sex Representation Female (finding) Admission evaluation note * Lulú Hunt MD, Suni: PERFORM Event Display: Admission Note Authored Date: [id number] Patient: ??ALOK MALIK ? Age:??59 Years?Sex:??Female?:??1965?? Chief Complaint/Reason for Consultation Shortness of breath and wheezing History of Present Illness 59-year-old female with a history of asthma, fibromyalgia, GERD presents to the emergency department for shortness of breath associated with ongoing wheezing. Reports shortness of breath insidious inonset gradually worsening associated with wheezing and chest tightness.?? Patient denies any feversor chills.?? Cough with nonproductive phlegm.?? Patient went to urgent care to seek help and got a prescription for oral prednisone -with no significant relief. Left-sided chest pain worsens with cough.?? No orthopnea PND, palpitations on leg swelling.?? No recent travel.?? Patient is able to complete full sentences with intercostal retractions during my interaction.?? No prior history of blood clots.?? No associated syncope, palpitations, orthopnea, PND.?Poor appetite??due to ongoing??shortness of breath and coughing.?No abdominal pain, nausea, vomiting abdominal pain.?? No hematuria, hematochezia,??melena??or dysuria.?? No??weakness, numbness, paresthesias. ?? ER arrival 97.5, tachycardic 100, tachypneic respiratory rate was 28-30, 138/90, saturating 100%on room air.?? Telemetry shows sinus tachycardia heart rate ranging from 90s to 120s.?? CBC within normal limits.?? BMP within normal limit.?? Troponin was 6.?? Flu RSV negative.?? Extended viral pathogen panel positive for human metapneumovirus.?? Chest x-ray:.?? No acute infiltrate.?? Patient received several breathing treatments, IV magnesium and IM epi.?? Patient has very minimal improvement.?? Patient is at risk for impending respiratory failure hence will be admitted under hospitalist service/[facility] for close monitoring with scheduled and as needed breathing treatments. Review of Systems General:??As reviewed above Skin: Denies new rash, sores, lumps. HEENT: Denies vision changes, dizziness, headache, cold symptoms. Cardiac: Denies chest pain?? Vascular: Denies edema Pulmonary:??As reviewed above GI: Denies abdominal pain, nausea, vomiting, diarrhea, constipation. : Denies dysuria Neurological: Denies weakness, dizziness, syncope. Psych: Appropriate affect and mood. Engages appropriately. All other systems reviewed and negative except as noted in HPI?? Objective Measurements?? Height: 165 cm (11/11/24) Weight: 89.9 kg (11/11/24) Dry Weight: 89.9 kg (11/11/24) Body Mass Index:??33.02 kg/m2??Critical (11/11/24) ? Vital Signs?? Temperature: 98.5 DegF (11/11/24 09:02:00) Temperature Route: Oral (11/11/24 09:02:00) Pulse Rate:??105 bpm??High (11/11/24 09:02:00) Respiratory Rate: 21 br/min (11/11/24 09:02:00) Systolic Blood Pressure: 130 mm Hg (11/11/24 09:02:00) Diastolic Blood Pressure: 71 mm Hg (11/11/24 09:02:00) Blood pressure sites: Arm, left (11/11/24 09:02:00) Mean Arterial Pressure: 91 mm Hg (11/11/24 09:02:00) Pulse Pressure: 59 mm Hg (11/11/24 09:02:00) Oxygen Saturation: 96 % (11/11/24 09:02:00) Mode of Delivery (Oxygen): Room air (11/11/24 09:02:00) FiO2: 97 % (11/11/24 06:28:00) Early Warning Score: 3 (11/11/24 09:11:19) ? Physical Exam General:??Alert, awake, oriented x 3 with moderate to severe respiratory distress Intercostal retraction +??able to speak full sentences. HEENT: moist oral mucosa. PERRLA, EOMI.?? NECK: No JVD. No bruits. Heart: Tachycardic. S1 and s2 heard. No murmer, rub or gallop. Lungs:??Diminished breath sounds in bilateral lower base with audible inspiratory and expiratory wheezing?? Abdomen : Soft, nondistended, nontender and bowel sounds are active. ??No organomegaly.?? Extremities: No pedal edema, swelling or cyanosis. peripheral pulses 2+ Neurological : grossly non focal. AA0 X3.? Pscy: Mood and affect appropriate.? Assessment/Plan 59-year-old female with a past medical history of asthma, fibromyalgia, GERD presents to the emergency department with??acute respiratory distress secondary to asthma exacerbation secondary to Human metapneumovirus??bronchiolitis ?? Acute respiratory distress (R06.03): Acute bronchiolitis due to human metapneumovirus (J21.1):??. Asthma exacerbation (J45.901):??. Presents with shortness of breath??with ongoing??audible wheezing??precipitated by viral pneumonia Chest x-ray negative for any infiltrates. + Human metapneumovirus - isolation??per protocol No fever or leukocytosis.?? Hold off on antibiotics.?? Non-smoker. Patient is tachycardic, tachypneic with intercostal retractions??and accessory muscle involvement Patient is at risk for impending respiratory failure Close monitoring in the [facility] set up ?? Plan -IV Solu-Medrol??3 times a day -wean??as tolerated -Scheduled and as needed breathing treatments -Inhaled??corticosteroids -IV magnesium as needed??for asthma attack -If respiratory status declines consider ABG and??ICU consult -PPI while on IV Solu-Medrol -Hold off any antibiotics at this time. -Chest PT and incentive spirometry??as tolerated ?? Anion gap metabolic acidosis. -Unclear etiology.?? Bicarb level is 20 and anion gap is 18. Check for lactate.?? No evidence of infection hold off on antibiotics. Could be related to respiratory acidosis with partial compensation, will check for ABG. ?? 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 Expect hyperglycemia with steroid use.?? Thifo-ii-thoj??and insulin coverage as needed. ?? VTE Prophylaxis:??Lovenox ?VTE Prophylaxis Assessment:??VTE Prophylaxis Ordered?? Discharge Planning:??Discharge in 2 to 3 days?? Ongoing Medical Necessity:??Asthma exacerbation, IV Solu-Medrol, scheduled breathing treatments Code Status:??Full code ?Order Code Status:??Code Status Ordered ?? I spent a total of?? 75??minutes today reviewing the chart/medical records, speaking with the patient, formulating and discussing the treatment plan and documenting the findings in encounter ?? Disclaimer: This dictation was accomplished with use of Zivity voice recognition software, proneto medical word misidentifications and grammatical errors. The physician does strive to identify and correct these, but some could still be present. Please do not hesitate to contact physician for cla rifications.? Histories Allergies Allergies ?(Active and Proposed Allergies Only) penicillin? (Severity: Unknown severity, Onset: Unknown) traZODone? (Severity: Unknown severity, Onset: Unknown) ?Reactions: Palpitations traMADol? (Severity: Unknown severity, Onset: Unknown) Latex? (Severity: Unknown severity, Onset: Unknown) ?Reactions: rash ? Past Medical History/Problem List Active Problems(6) Asthma Fibromyalgia GERD (gastroesophageal reflux disease) Kidney stone Obese class I UI - Urinary incontinence ? Past Surgical History Esophagogastroduodenoscopy: 05/22/19 Colonoscopy with polypectomy: 05/22/19 Robotic excision of sacrocolpopexy mesh, cystoscopy.: 12/02/13 Examination under anesthesia, diagnostic laparoscopy, revision of vaginal mesh exposure and diagnostic cystoscopy.: 03/31/12 Mid urethral sling with tension free vaginal tape and cystoscopy.: 06/18/11 Hysterectomy ? Social History Alcohol Details:??Use: Never. Exercise Details:??Regular exercise: Yes. Home/Environment Details:??Living situation: Home/Independent. ??Lives with: Children, Spouse. Nutrition/Health Details:??Diet: Regular. Sexual Details:??Sexually involved in last 6 months: Yes. Substance Abuse Details:??Use: Never. Tobacco Details:??Use: Never smoker. ? Family History Father: Hyperlipidemia Brother: Hyperlipidemia Other: Deep vein thrombosis; Hyperlipidemia ? Medications Home Medications Acetaminophen (acetaminophen 500 mg oral tablet)??1 tab(s) 500 Milligram By Mouth Daily as needed as needed Albuterol (Albuterol (Eqv-ProAir HFA) 90 mcg/inh inhalation aerosol)??2 inhalation 180 Microgram Inhalation Every 6 hours as needed Wheezing/Shortness of Breath Albuterol (albuterol 0.083% inhalation solution)??3 Milliliter 2.5 Milligram Neb 4 times a day as needed Wheezing/Shortness of Breath Gabapentin (gabapentin 300 mg oral capsule)??300 Milligram 1 capsule By Mouth Daily at bedtime Magnesium Gluconate (magnesium gluconate 250 mg oral tablet)??1 tab(s) 250 Milligram By Mouth 2 times a day MethylPREDNISolone (MethylPREDNISolone Dose Pack 4 mg oral tablet)??1 pack/packet By Mouth Once for6 Days Metronidazole Topical (metroNIDAZOLE 0.75% topical cream)??APPLY A THIN LAYER TO AFFECTED AREA ON THE FACE TWICE DAILY NEEDED. Miscellaneous Rx (Turmeric 400mg)??1 tab(s) Oral Daily [place]-3 Polyunsaturated Fatty Acids (Fish Oil 1000 mg oral capsule)??1 capsule 1,000 Milligram By Mouth Daily Pantoprazole (pantoprazole 40 mg oral delayed release tablet)??1 tab(s) 40 Milligram By Mouth 2 times a day Pyridoxine (Vitamin B6 100 mg oral tablet)??1 tab(s) 100 Milligram By Mouth Daily Tacrolimus Topical (tacrolimus 0.03% topical ointment)??1 fariba Topically Daily ? Results Recent Labs BLOOD COUNT & DIFF WBC 9.1 k/mm3 ()?? 11/11/2024 04:44 RBC 4.76 m/mm3 ()?? 11/11/2024 04:44 Hgb 14.3 Gm/dL ()?? 11/11/2024 04:44 Hct 42.9 % ()?? 11/11/2024 04:44 MCV 90.1 femtoliters ()?? 11/11/2024 04:44 MCH 30.0 pg ()?? 11/11/2024 04:44 MCHC 33.3 Gm/dL ()?? 11/11/2024 04:44 Platelet Count 385 k/mm3 ()?? 11/11/2024 04:44 RDW-SD 42.3 femtoliters ()?? 11/11/2024 04:44 MPV 10.9 femtoliters ()?? 11/11/2024 04:44 Nucleated RBC (Automated) 0.0 #/100 WBC'S ()?? 11/11/2024 04:44 Abs. NRBC 0.0 k/mm3 ()?? 11/11/2024 04:44 Abs. Neut 5.4 k/mm3 ()?? 11/11/2024 04:44 Abs. Lymph 2.8 k/mm3 ()?? 11/11/2024 04:44 Abs. Andrews 0.8 k/mm3 ()?? 11/11/2024 04:44 Abs. Eo 0.0 k/mm3 ()?? 11/11/2024 04:44 Abs. Baso 0.0 k/mm3 ()?? 11/11/2024 04:44 Neut % 59.0 % ()?? 11/11/2024 04:44 Lymph % 31.2 % ()?? 11/11/2024 04:44 Andrews % 8.8 % ()?? 11/11/2024 04:44 Eos % 0.2 % ()?? 11/11/2024 04:44 Baso % 0.4 % ()?? 11/11/2024 04:44 Imm Gran 0.4 % ()?? 11/11/2024 04:44 Abs. Imm Gran 0.0 k/mm3 ()?? 11/11/2024 04:44 ?? CARDIAC High Sensitivity Troponin (HSTnT) 6 ng/L ()?? 11/11/2024 04:44 ?? CHEM GENERAL Sodium 143 mmol/L ()?? 11/11/2024 04:44 Potassium 4.3 mmol/L ()?? 11/11/2024 04:44 Chloride 105 mmol/L ()?? 11/11/2024 04:44 Bicarbonate Level 20 mmol/L (Low)?? 11/11/2024 04:44 Anion Gap 18 mmol/L (High)?? 11/11/2024 04:44 Glucose Level 100 mg/dL (High)?? 11/11/2024 04:44 BUN 10 mg/dL ()?? 11/11/2024 04:44 Creatinine-Blood 0.57 mg/dL ()?? 11/11/2024 04:44 Estimated GFR Creatinine 106 ML/MIN/1.73 M2 ()?? 11/11/2024 04:44 Calcium 10.3 mg/dL ()?? 11/11/2024 04:44 ?? HEME OTHER Hold Blue Top SPECIMEN DISCARDED AFTER 4 HOURS. ()?? 11/11/2024 04:44 ?? URINE OTHER Est Creatinine Clearance 97.83 mL/min ()?? 11/11/2024 06:05 ?? VIROLOGY Influenza A PCR NEGATIVE ()?? 11/11/2024 04:52 Influenza B PCR NEGATIVE ()?? 11/11/2024 04:52 RSV PCR NEGATIVE ()?? 11/11/2024 04:52 Adenovirus by PCR NEGATIVE ()?? 11/11/2024 07:50 Coronavirus 229E by PCR (not COVID-19) NEGATIVE ()?? 11/11/2024 07:50 Coronavirus HKU1 by PCR (not COVID-19) NEGATIVE ()?? 11/11/2024 07:50 Coronavirus NL63 by PCR (not COVID-19) NEGATIVE ()?? 11/11/2024 07:50 Coronavirus OC43 by PCR (not COVID-19) NEGATIVE ()?? 11/11/2024 07:50 Human Metapneumovirus by PCR POSITIVE (Abnormal)?? 11/11/2024 07:50 Rhinovirus/Enterovirus by PCR NEGATIVE ()?? 11/11/2024 07:50 Influenza A by PCR NEGATIVE ()?? 11/11/2024 07:50 Influenza B by PCR NEGATIVE ()?? 11/11/2024 07:50 Parainfluenza 1 by PCR NEGATIVE ()?? 11/11/2024 07:50 Parainfluenza 2 by PCR NEGATIVE ()?? 11/11/2024 07:50 Parainfluenza 3 by PCR NEGATIVE ()?? 11/11/2024 07:50 Parainfluenza 4 by PCR NEGATIVE ()?? 11/11/2024 07:50 RSV by PCR NEGATIVE ()?? 11/11/2024 07:50 Bordetella Pertussis by PCR NEGATIVE ()?? 11/11/2024 07:50 Chlamydophila Pneumoniae by PCR NEGATIVE ()?? 11/11/2024 07:50 Mycoplasma Pneumoniae by PCR NEGATIVE ()?? 11/11/2024 07:50 COVID-19 PCR Specimen Source NASAL ()?? 11/11/2024 04:52 COVID-19 PCR Result NEGATIVE ()?? 11/11/2024 04:52 COVID-19 (SARS-CoV-2) by PCR NEGATIVE ()?? 11/11/2024 07:50 Bordetella Parapertussis by PCR NEGATIVE ()?? 11/11/2024 07:50 ? EKG study * Event Display: EKG Authored Date: * Event Display: EKG Authored Date: [id number] * Event Display: ECG 12-Lead Authored Date: [id number] Please click on pdf link to open report * Event Display: ECG 12-Lead Authored Date: [id number] Ventricular Rate: 98 BPM Atrial Rate: 98 BPM P-R Interval: 124 ms QRS Duration: 66 ms Q-T Interval: 346 ms QTC Calculation(Bazett): 441 ms P [place]: 41 degrees R [place]: 32 degrees T [place]: 52 degrees Normal sinus rhythm Normal ECG When compared with ECG of 15-Nov-2023 00:21, No significant change was found Confirmed by GREGORY RAY MD ([id number]) on 11/11/2024 12:20:52 PM [place]: GREGORY RAY MD Cardiology * Event Display: Cardiac Rhythm Strips Authored Date: [id number] Hospital Progress note * Noni Anaya RN: VERIFY, PERFORM, SIGN Event Display: Progress Note Hospital Authored Date: [id number] Patient: ALOK MALIK Age: 59 years Sex: Female : 1965 Associated Diagnoses: None Author: Noni Anaya RN Findings Problem Related to Alteration in Respiratory Function (new) : Alteration in Respiratory Function/new 11/15/2024 8:00 EDT Alteration in Resp Status Related to Asthma, Other: human metapneumovirus Goals & Outcomes, Respiratory Pt will maintain/resume baseline physical assessment, Pt will maintain/resume normal fluid/electrolyte balance, Pt will not develop complications r/t immobility Interventions, Respiratory Assess for and report S&S of respiratory distress, Position for comfort & optimal oxygenation Goals/Interventions, Respiratory Yes Respiratory, Problem Start 11/11/2024 11:14 Reviewed Plan with, Respiratory Patient Patient Progression, Respiratory Resolved problem Respiratory, Problem Resolved 11/15/2024 11:15 . Nursing Data Vital Signs : VITAL SIGNS SECTION 11/15/2024 7:56 EDT Temperature 97.7 DegF Temperature Route Oral Pulse Rate 89 bpm Respiratory Rate 18 br/min Systolic Blood Pressure 149 mm Hg H Diastolic Blood Pressure 94 mm Hg H Blood pressure sites Arm, right Mean Arterial Pressure 112 mm Hg Pulse Pressure 55 mm Hg Oxygen Saturation 93 % L Mode of Delivery (Oxygen) Room air . Narrative/Incidental Patient is discharging to home, IV tip pulled and in tact. Upper air way clear, minimal wheezing atthe bases which cleared after her breathing treatment. Discharge instructions reviewed, medication picked up from [facility] pharmacy. Valuables and belongings collected. Patient discharged via wheelchair,escorted by her . . * Riddhi Paulino RN: PERFORM, SIGN, VERIFY Event Display: Progress Note Hospital Authored Date: [id number] Patient: ALOK MALIK Age: 59 years Sex: Female : 1965 Associated Diagnoses: None Author: Riddhi Paulino RN Findings Nursing Data Vital Signs : VITAL SIGNS SECTION 11/15/2024 2:00 EDT Temperature 97.7 DegF Temperature Route Oral Pulse Rate 77 bpm Respiratory Rate 16 br/min Systolic Blood Pressure 106 mm Hg Diastolic Blood Pressure 60 mm Hg Blood pressure sites Arm, left Pulse Pressure 46 mm Hg Oxygen Saturation 94 % Mode of Delivery (Oxygen) Room air 11/15/2024 0:44 EDT Early Warning Score 6.00 11/14/2024 22:20 EDT Early Warning Score 6.00 11/14/2024 22:18 EDT Respiratory Rate Not Done: Patient Refused (Not Done) 11/14/2024 21:18 EDT Early Warning Score 6.00 11/14/2024 21:18 EDT Respiratory Rate In Error br/min (In Error) 11/14/2024 21:17 EDT Early Warning Score 6.00 11/14/2024 21:00 EDT Temperature 98.1 DegF Temperature Route Oral Pulse Rate 101 bpm H Respiratory Rate 16 br/min Respiratory Rate Not Done: Patient Refused (Not Done) Systolic Blood Pressure 140 mm Hg H Diastolic Blood Pressure 89 mm Hg H Blood pressure sites Arm, right Pulse Pressure 51 mm Hg Oxygen Saturation 95 % Mode of Delivery (Oxygen) Room air . Narrative/Incidental Assumed pt care at 1930. Pt5 A&Ox3 and able to communicate needs. On satellite project site monitor showing NSR, Stach with ambulation. Pt having some expiratory wheezes and a productive cough. Cough syrup and breathing treatment offered to pt. Pt stating some SOB and chest tightening when she coughs. Denies any chest pain. Taking medications whole with water. Pt ambulating to the bathroom with a standby assist. Maintained on contact/droplet precautions.Plan of care ongoing, frequent rounding, and safety measures in place. See flow sheets for full assessment.. * Linda Faulkner RN: PERFORM, SIGN, VERIFY Event Display: Progress Note Hospital Authored Date: [id number] Patient: ALOK MALIK Age: 59 years Sex: Female : 1965 Associated Diagnoses: None Author: Linda Faulkner RN Findings Nursing Data Vital Signs : VITAL SIGNS SECTION 11/14/2024 16:53 EDT Temperature 97.6 DegF Temperature Route Oral Pulse Rate 103 bpm H Respiratory Rate 18 br/min Systolic Blood Pressure 129 mm Hg Diastolic Blood Pressure 79 mm Hg Blood pressure sites Arm, left Mean Arterial Pressure 96 mm Hg Pulse Pressure 50 mm Hg Oxygen Saturation 92 % L Mode of Delivery (Oxygen) Room air Early Warning Score 9.00 . Narrative/Incidental Patient arrives as transfer this shift, patient alert and oriented x4. VSS. Patient ambulatory withstandby assist with walker to the bathroom. Call winters within reach, bed low and in the locked position. . Note * Noni Anaya RN: PERFORM Event Display: Discharge/Transfer Note Hospital Authored Date: [id number] Nursing Discharge Note Entered On: 11/15/2024 12:34 EDT Performed On: 11/15/2024 12:34 EDT by Noni Anaya RN Nursing Discharge Note 2 Discharge Time : 11/15/2024 11:15 EDT Discharge Level of Care at Discharge : Home/Penitentiary/Foster Care Patient Left Unit Via : Wheelchair Patient Accompanied Off Unit with : Significant other DC Instructions Provided & Signed by Pt : Unable Patient Understands D/C Instructions : Yes Patient Instructions Discharge Signed : Yes Did Pt have Specialty Bed or Wound Vac : No Noni Anaya RN - 11/15/2024 12:34 EDT * Michael Reyes DO: PERFORM Event Display: Discharge/Transfer Note Hospital Authored Date: [id number] Patient: ??ALOK MALIK ? Age:??59 Years?Sex:??Female?:??1965?? Patient Information Discharge Location: A Primary Care Physician: Elio MATHIS, Asma Admit Date/Time: 11/11/2024 06:07 Discharge Disposition Discharge Disposition: Home: No Services Discharge Diagnosis Prediabetes (R73.03) Fibromyalgia (M79.7) Chronic GERD (K21.9) Asthma exacerbation (J45.901) Acute respiratory distress (R06.03) Morbid obesity (E66.01) Acute bronchiolitis due to human metapneumovirus (J21.1) Shortness of breath ([id number]) _ Discharge Medications Acetaminophen (acetaminophen 500 mg oral tablet)??1 tab(s) 500 Milligram By Mouth Daily as needed as needed Albuterol (Albuterol (Eqv-ProAir HFA) 90 mcg/inh inhalation aerosol)??2 inhalation 180 Microgram Inhalation Every 6 hours as needed Wheezing/Shortness of Breath Albuterol (albuterol 0.083% inhalation solution)??3 Milliliter 2.5 Milligram Neb 4 times a day as needed Wheezing/Shortness of Breath Budesonide-Formoterol (Symbicort 80mcg/4.5mcg Inhaler)??2 puff(s) Inhalation 2 times a day Gabapentin (gabapentin 300 mg oral capsule)??300 Milligram 1 capsule By Mouth Daily at bedtime Magnesium Gluconate (magnesium gluconate 250 mg oral tablet)??1 tab(s) 250 Milligram By Mouth 2 times a day Metronidazole Topical (metroNIDAZOLE 0.75% topical cream)??APPLY A THIN LAYER TO AFFECTED AREA ON THE FACE TWICE DAILY NEEDED. Miscellaneous Rx (Turmeric 400mg)??1 tab(s) Oral Daily [place]-3 Polyunsaturated Fatty Acids (Fish Oil 1000 mg oral capsule)??1 capsule 1,000 Milligram By Mouth Daily Pantoprazole (pantoprazole 40 mg oral delayed release tablet)??1 tab(s) 40 Milligram By Mouth 2 times a day Pyridoxine (Vitamin B6 100 mg oral tablet)??1 tab(s) 100 Milligram By Mouth Daily Tacrolimus Topical (tacrolimus 0.03% topical ointment)??1 fariba Topically Daily ? Medications Started Budesonide-Formoterol (Symbicort 80mcg/4.5mcg Inhaler)??2 puff(s) Inhalation 2 times a day Medications Discontinued None Doses Changed None Allergies Allergies ?(Active and Proposed Allergies Only) diphenhydrAMINE? (Severity: Unknown severity, Onset: Unknown) ?Reactions: Palpitations - rapid, Somnolence, Feeling jittery, palpitation, sommulence, hyperactivity melatonin? (Severity: Unknown severity, Onset: Unknown) ?Reactions: Palpitations - fluttering penicillin? (Severity: Unknown severity, Onset: Unknown) traZODone? (Severity: Unknown severity, Onset: Unknown) ?Reactions: Palpitations traMADol? (Severity: Unknown severity, Onset: Unknown) Latex? (Severity: Unknown severity, Onset: Unknown) ?Reactions: rash ? Hospital Course Alok is a 59-year-old woman with a past medical history of asthma, fibromyalgia and GERD who presented the emergency department in the setting of acute respiratory distress.?? On presentation patient found to be tachycardic but otherwise hemodynamically stable.?? Chest x-ray was completed that showed no acute pathology and CBC as well as BMP was performed and was unremarkable.?? Respiratory viral panel was completed and patient found to be positive for human metapneumovirus and it was determined that exacerbation was likely secondary to asthma exacerbation from human metapneumovirus positivity.?? Patient received supportive care, DuoNebs and steroids while in the hospital and respiratory s tatus is now improved and ready for discharge to home. ?? Acute asthma exacerbation (J45.901) Human metapneumovirus (J21.1) Patient presented to hospital setting of respiratory distress.?? Chest x-ray unremarkable and no leukocytosis Respiratory viral panel demonstrating positivity for human metapneumovirus which is likely causing asthma exacerbation Steroid burst was completed and patient had improvement in respiratory status Given hospitalization of asthma exacerbation will also prescribe maintenance inhaler ??? Symbicort prescribed ??? Continue nebulizer therapy at home ??? Counseled if respiratory status not improving over the next 4 to 5 days to be present to PCP for further evaluation ?? GERD (K21.9): PPI Fibromyalgia (M79.7): Gabapentin Prediabetes (R73.03): Sugars likely elevated in the setting of steroids.?? Steroids now stopped.?? Diet counseling.?? Outpatient follow-up Objective Vital Signs?? Temperature: 97.7 DegF (11/15/24 07:56:00) Temperature Route: Oral (11/15/24 07:56:00) Pulse Rate: 89 bpm (11/15/24 07:56:00) Heart Rate Monitored:??117 bpm??High (11/14/24 14:00:15) Respiratory Rate: 18 br/min (11/15/24 07:56:00) Systolic Blood Pressure:??149 mm Hg??High (11/15/24 07:56:00) Diastolic Blood Pressure:??94 mm Hg??High (11/15/24 07:56:00) Blood pressure sites: Arm, right (11/15/24 07:56:00) Mean Arterial Pressure: 112 mm Hg (11/15/24 07:56:00) Pulse Pressure: 55 mm Hg (11/15/24 07:56:00) Oxygen Saturation:??93 %??Low (11/15/24 07:56:00) Mode of Delivery (Oxygen): Room air (11/15/24 07:56:00) Early Warning Score: 4 (11/15/24 07:59:57) ? . Physical Exam General Appearance: NAD. Eyes:??No scleral icterus. ENT: ??MM moist. Cardiovascular: RRR S1 and S2 . Respiratory: ??Breath sounds with scattered rhonchi GI: Soft. Nontender and nondistended. MS: ??No edema or erythema in the lower extremities.? Neuro: ??No slurred speech. Moving upper and lower extremities spontaneously. Psych: Alert and oriented x3.?? Follow-Up Appointments Added Follow Up ?Time Frame ?Comments Elio MATHIS, Gaudencio?3-5 day: call to discuss follow up visit Results Discharge Labs BLOOD COUNT & DIFF WBC 16.2 k/mm3 (High)?? 11/13/2024 01:30 RBC 4.55 m/mm3 ()?? 11/13/2024 01:30 Hgb 13.6 Gm/dL ()?? 11/13/2024 01:30 Hct 41.3 % ()?? 11/13/2024 01:30 MCV 90.8 femtoliters ()?? 11/13/2024 01:30 MCH 29.9 pg ()?? 11/13/2024 01:30 MCHC 32.9 Gm/dL (Low)?? 11/13/2024 01:30 Platelet Count 381 k/mm3 ()?? 11/13/2024 01:30 RDW-SD 44.0 femtoliters ()?? 11/13/2024 01:30 MPV 10.8 femtoliters ()?? 11/13/2024 01:30 Nucleated RBC (Automated) 0.0 #/100 WBC'S ()?? 11/13/2024 01:30 Abs. NRBC 0.0 k/mm3 ()?? 11/13/2024 01:30 Abs. Neut 5.4 k/mm3 ()?? 11/11/2024 04:44 Abs. Lymph 2.8 k/mm3 ()?? 11/11/2024 04:44 Abs. Andrews 0.8 k/mm3 ()?? 11/11/2024 04:44 Abs. Eo 0.0 k/mm3 ()?? 11/11/2024 04:44 Abs. Baso 0.0 k/mm3 ()?? 11/11/2024 04:44 Neut % 59.0 % ()?? 11/11/2024 04:44 Lymph % 31.2 % ()?? 11/11/2024 04:44 Andrews % 8.8 % ()?? 11/11/2024 04:44 Eos % 0.2 % ()?? 11/11/2024 04:44 Baso % 0.4 % ()?? 11/11/2024 04:44 Imm Gran 0.4 % ()?? 11/11/2024 04:44 Abs. Imm Gran 0.0 k/mm3 ()?? 11/11/2024 04:44 ?? BLOOD GAS pH 7.38 ()?? 11/11/2024 10:21 pCO2 24 mm Hg (Low)?? 11/11/2024 10:21 pO2 98 mm Hg (High)?? 11/11/2024 10:21 Bicarbonate, Estimated 14 mmol/L (Low)?? 11/11/2024 10:21 Specimen Type - Blood Gas ARTERIAL ()?? 11/11/2024 10:21 Percent O2 (FIO2) 21 ()?? 11/11/2024 10:21 ?? CARDIAC Nt-Probnp 43 pg/mL ()?? 11/11/2024 09:25 High Sensitivity Troponin (HSTnT) 6 ng/L ()?? 11/11/2024 04:44 ?? CHEM GENERAL Sodium 137 mmol/L ()?? 11/14/2024 02:30 Potassium 4.4 mmol/L ()?? 11/14/2024 02:30 Chloride 101 mmol/L ()?? 11/14/2024 02:30 Bicarbonate Level 22 mmol/L ()?? 11/14/2024 02:30 Anion Gap 14 mmol/L ()?? 11/14/2024 02:30 Glucose Level 138 mg/dL (High)?? 11/14/2024 02:30 Glucose, POC 97 mg/dL ()?? 11/15/2024 07:54 Hemoglobin A1C (Monitoring) 5.8 % (High)?? 11/11/2024 04:44 BUN 22 mg/dL (High)?? 11/14/2024 02:30 Creatinine-Blood 0.68 mg/dL ()?? 11/14/2024 02:30 Estimated GFR Creatinine 102 ML/MIN/1.73 M2 ()?? 11/14/2024 02:30 Calcium 9.9 mg/dL ()?? 11/14/2024 02:30 Phosphorus 3.2 mg/dL ()?? 11/12/2024 02:38 Magnesium 2.3 mg/dL ()?? 11/12/2024 02:38 ?? ENDOCRINE/TUMOR MARKER TSH 1.80 uIU/mL ()?? 11/11/2024 09:25 ? HEME OTHER Hold Lavender Top SPECIMEN DISCARDED AFTER 24 HOURS. ()?? 11/11/2024 09:25 Hold Blue Top SPECIMEN DISCARDED AFTER 4 HOURS. ()?? 11/11/2024 04:44 ?? MISC. CHEMISTRY Hold Tapia Top SPECIMEN DISCARDED AFTER 1 WEEK ()?? 11/11/2024 04:44 ? URINE OTHER Est Creatinine Clearance 82.00 mL/min ()?? 11/14/2024 03:45 ? VIROLOGY Influenza A PCR NEGATIVE ()?? 11/11/2024 04:52 Influenza B PCR NEGATIVE ()?? 11/11/2024 04:52 RSV PCR NEGATIVE ()?? 11/11/2024 04:52 Adenovirus by PCR NEGATIVE ()?? 11/11/2024 07:50 Coronavirus 229E by PCR (not COVID-19) NEGATIVE ()?? 11/11/2024 07:50 Coronavirus HKU1 by PCR (not COVID-19) NEGATIVE ()?? 11/11/2024 07:50 Coronavirus NL63 by PCR (not COVID-19) NEGATIVE ()?? 11/11/2024 07:50 Coronavirus OC43 by PCR (not COVID-19) NEGATIVE ()?? 11/11/2024 07:50 Human Metapneumovirus by PCR POSITIVE (Abnormal)?? 11/11/2024 07:50 Rhinovirus/Enterovirus by PCR NEGATIVE ()?? 11/11/2024 07:50 Influenza A by PCR NEGATIVE ()?? 11/11/2024 07:50 Influenza B by PCR NEGATIVE ()?? 11/11/2024 07:50 Parainfluenza 1 by PCR NEGATIVE ()?? 11/11/2024 07:50 Parainfluenza 2 by PCR NEGATIVE ()?? 11/11/2024 07:50 Parainfluenza 3 by PCR NEGATIVE ()?? 11/11/2024 07:50 Parainfluenza 4 by PCR NEGATIVE ()?? 11/11/2024 07:50 RSV by PCR NEGATIVE ()?? 11/11/2024 07:50 Bordetella Pertussis by PCR NEGATIVE ()?? 11/11/2024 07:50 Chlamydophila Pneumoniae by PCR NEGATIVE ()?? 11/11/2024 07:50 Mycoplasma Pneumoniae by PCR NEGATIVE ()?? 11/11/2024 07:50 COVID-19 PCR Specimen Source NASAL ()?? 11/11/2024 04:52 COVID-19 PCR Result NEGATIVE ()?? 11/11/2024 04:52 COVID-19 (SARS-CoV-2) by PCR NEGATIVE ()?? 11/11/2024 07:50 Bordetella Parapertussis by PCR NEGATIVE ()?? 11/11/2024 07:50 ? Microbiology ?? Respiratory Pathogen PCR with COVID-19?? Completed?? Source: Nasopharyngeal Swab Body Site: Nasopharyngeal Collected Dt/Tm: 11/11/2024 07:17 Last Updated Dt/Tm: 11/11/2024 09:15 ?? COVID-19, RSV, and Flu A/B, Rapid PCR?? Completed?? Source: Nasal Body Site: Nose Collected Dt/Tm: 11/11/2024 04:52 Last Updated Dt/Tm: 11/11/2024 06:21 ? 34??minutes spent on discharge * Héctor HOBBS, Noni: PERFORM Event Display: Patient Education/Instruction Authored Date: [id number] Inpatient Adult Discharge Instructions. [place] [id number] Name: ALOK KING : 1965?? Visit: 11/11/2024 06:07?? Current Date: 11/15/2024 10:30 ?? Account: [id number]?? Inpatient Adult Discharge Instructions We would like to thank you for allowing us to assist you with your healthcare needs. The following includes patient education materials and information regarding your injury/illness. Our entire staffstrives to provide an excellent experience for our patients and their families. PLEASE ENSURE YOU FOLLOW-UP PER THE INSTRUCTIONS BELOW! ?? YOUR OPINION IS IMPORTANT TO US! Please complete the survey you may receive by mail or email. Your feedback will be used to make improvements to the healthcare experiences of our patients and their families. Surveys are administered by [employer] ?? If further treatment with your primary care physician or another doctor is recommended, it is important for you to keep the appointment. Call your primary care physician or return to the Emergency Department immediately if your condition worsens, fails to improve, or new symptoms develop. If you need to find a doctor, you can call [facility] Link for a referral at [phone] or toll free at [phone] ([phone]) or log in to [email or web address].. ?? [facility], in keeping with [facility] guidance, no longer requires face masks for staff, patientsor visitors in most situations. Similiar to time spent indoors at other locations, there is the chance that you were exposed to repiratory viruses during your time with us (such as flu or COVID-19). If you develop symptoms concerning for a viral respiratory infection, please seek testing (and treatment if indicated) from your medical provider or home test kit. ?? You can view and manage your care through the patient portal or by using a health care fariba of your choosing. [employer] is a website that allows you to securely view your medical information including your hospital discharge summary, office visit summaries, medications and follow-up visits. You can also request appointments, renew medications, and request access to your medical information using a health care fariba of your choosing, or just ask a question. You are entitled to know the individuals who participated in your treatment. This information is available within your medical record and will be provided upon your request. You can enroll at [email or web address] or register d uring your next office visit. You have been discharged from [facility], Patient Care Unit: D6A??. If you have any questions regarding these instructions, including results of studies pending, afteryou leave, please call us and we will be happy to assist you 11/03. [facility] Your Care Team Attending Physician Michael Reyes DO?? Consulting Providers Michael Reyes DO?? Discharging Providers Michael Reyes DO Reason for Your Visit Shortness of breath and wheezing?? Your Diagnosis Acute bronchiolitis due to human metapneumovirus Acute respiratory distress Chronic GERD Fibromyalgia Morbid obesity Prediabetes Shortness of breath Tests Performed Below is a partial list of the tests performed during your hospitalization. You may have had other tests and procedures not included in this list. Please discuss all test results with your provider. ABG Basic Metabolic Panel BUN Calcium Level CBC CBC w/ Differential COVID-19, RSV, and Flu A/B, Rapid PCR Creatinine Electrolytes Glucose Level GLUCOSE POC HEMOGLOBIN A1C High??Sensitivity??Troponin T Hold Blue Top Tube HOLD TAPIA TUBE HOLD LAVENDER TUBE Magnesium Level Phosphorus Level ProBNP Respiratory Pathogen PCR with COVID-19 TSH with T4 Reflex (Adults Only) XR Chest Portable B Type Natriuretic Peptide (NT-proBNP) (ProBNP)?? BUN?? Basic Metabolic Panel?? Blood Gas Arterial (ABG)?? CBC?? CBC w/ Differential?? COVID-19, RSV, and Flu A/B, Rapid PCR?? Calcium Level?? Creatinine?? Electrolytes?? Glucose Level?? Glucose POC?? Hemoglobin A1C (Monitoring) (HEMOGLOBIN A1C)?? High??Sensitivity??Troponin T?? Hold Blue Top Tube?? Hold Tapia Top Tube (HOLD TAPIA TUBE)?? Hold Lavender Top Tube (HOLD LAVENDER TUBE)?? Magnesium Level?? Phosphorus Level?? Respiratory Pathogen PCR with COVID-19?? TSH with T4 Reflex (Adults Only)?? Chest Portable (XR Chest Portable)?? Primary Care Provider Gaudencio Ballard MD? Advance Directive Health Care Proxy on File Yes - Health Care Proxy Discharge Vitals Temperature: 97.7 DegF Height: 165 cm Pulse Rate: 89 bpm Weight: 80.5 kg Respiratory Rate: 18 br/min Body Mass Index:??33.02 kg/m2??Critical Systolic Blood Pressure:??149 mm Hg??High Body surface area: 2.03 Diastolic Blood Pressure:??94 mm Hg??High ?? Oxygen Saturation:??93 %??Low ?? Studies Pending All studies ordered during this hospital stay have been completed unless listed below. Please discuss all pending results with your provider listed above in these instructions. ?? Basic Metabolic Panel?? What to do next Instructions From Your Doctor ?? Orders? 11/15/24 10:17:00 EDT?? Prescriptions??, ??11/15/24 10:17:00 EDT?? You Need to Schedule the Following Appointments Follow Up with??Gaudencio Ballard MD When:??Within 3-5 day: call to discuss follow up visit Where: [facility] [place] [address]- Discharge Medications ALOK MALIK :1965 Visit Date:11/11/2024 Medications: Please continue your medications until treatment is completed or stopped by your provider. Medications not listed below should be discontinued. Discuss any questions related to medications with your provider. What How Much When Instructions Next Dose New Budesonide-Formoterol (Symbicort 80mcg/ 4.5mcg Inhaler) 2 puff(s) Inhalation Twice a day Refills: 3 Pickup at [facility] 3 11/15 9pm Unchanged Acetaminophen (acetaminophen 500 mg oral tablet) 1 tab(s) Oral Daily as needed for as needed as needed Unchanged Albuterol (Albuterol (Eqv-ProAir HFA) 90 mcg/ inh inhalation aerosol) 2 inhalation Inhalation Every 6 hours as needed for Wheezing/Shortness of Breath as needed Unchanged Albuterol (albuterol 0.083% inhalation solution) 3 Milliliter Nebulized inhalation 4 times a day as needed for Wheezing/Shortness of Breath as needed Unchanged Gabapentin (gabapentin 300 mg oral capsule) 1 capsule Oral Daily at Bedtime 11/15 9pm Unchanged Magnesium Gluconate (magnesium gluconate 250 mg oral tablet) 1 tab(s) Oral Twice a day 11/15 9pm Unchanged Metronidazole Topical (metroNIDAZOLE 0.75% topical cream) APPLY A THIN LAYER TO AFFECTED AREA ON THE FACE TWICE DAILY NEEDED. ?? as needed Unchanged Miscellaneous Rx (Turmeric 400mg) 1 tab(s) Oral Daily 11/16 9am Unchanged [place]-3 Polyunsaturated Fatty Acids (Fish Oil 1000 mg oral capsule) 1 capsule Oral Daily 11/16 9am Unchanged Pantoprazole (pantoprazole 40 mg oral delayed release tablet) 1 tab(s) Oral Twice a day 11/15 9pm Unchanged Pyridoxine (Vitamin B6 100 mg oral tablet) 1 tab(s) Oral Daily 11/16 9am Unchanged Tacrolimus Topical (tacrolimus 0.03% topical ointment) 1 afriba Topically Daily 11/16 9am Pharmacy Information [facility] 3: [address] [place], [place] [phone] ?? What How Much When Comments Stop Taking MethylPREDNISolone (MethylPREDNISolone Dose Pack 4 mg oral tablet) 1 pack/packet Oral Once Duration: 6 Days Prescription Given During Visit Budesonide-Formoterol (Symbicort 80mcg/4.5mcg Inhaler) - 2 puffs, Inhalation, 2 times a day, # 10.2Gm, 3 Refills, [facility] [place] [phone]?? Laboratory Results Below is a partial list of the most recent Laboratory test results done prior to this discharge. You may have had other tests and procedures not included in this list. Please discuss all test resultswith your provider. Est Creatinine Clearance - 82.00 mL/min (11/14/2024) ABG (11/11/2024) ???pH - 7.38???pCO2 - 24 mm Hg???pO2 - 98 mm Hg???Bicarbonate, Estimated - 14 mmol/L???Specimen Type - Blood Gas - ARTERIAL???Percent O2 (FIO2) - 21 Basic Metabolic Panel (11/12/2024) ???Sodium - 141 mmol/L???Potassium - 5.2 mmol/L???Chloride - 108 mmol/L???Bicarbonate Level - 18 mmol/L???Anion Gap - 15 mmol/L???Glucose Level - 138 mg/dL???BUN - 13 mg/dL???Creatinine-Blood - 0.53 mg/dL???Estimated GFR Creatinine - 108 ML/MIN/1.73 M2???Calcium - 9.8 mg/dL BUN (11/14/2024) ???BUN - 22 mg/dL Calcium Level (11/14/2024) ???Calcium - 9.9 mg/dL CBC (11/13/2024) ???WBC - 16.2 k/mm3???RBC - 4.55 m/mm3???Hgb - 13.6 Gm/dL???Hct - 41.3 %???MCV - 90.8 femtoliters???MCH - 29.9 pg???MCHC - 32.9 Gm/dL???Platelet Count - 381 k/mm3???RDW-SD - 44.0 femtoliters???MPV - 10.8 femtoliters???Nucleated RBC (Automated) - 0.0 #/100 WBC'S???Abs. NRBC - 0.0 k/mm3 CBC w/ Differential (11/11/2024) ???WBC - 9.1 k/mm3???RBC - 4.76 m/mm3???Hgb - 14.3 Gm/dL???Hct - 42.9 %???MCV - 90.1 femtoliters???MCH - 30.0 pg???MCHC - 33.3 Gm/dL???Platelet Count - 385 k/mm3???RDW-SD - 42.3 femtoliters???MPV - 10.9 femtoliters???Nucleated RBC (Automated) - 0.0 #/100 WBC'S???Abs. NRBC - 0.0 k/mm3???Abs. Neut - 5.4 k/mm3???Abs. Lymph - 2.8 k/mm3???Abs. Andrews - 0.8 k/mm3???Abs. Eo - 0.0 k/mm3???Abs. Baso - 0.0 k/mm3???Neut % - 59.0 %???Lymph % - 31.2 %???Andrews % - 8.8 %???Eos % - 0.2 %???Baso % - 0.4 %???Imm Gran - 0.4 %???Abs. Imm Gran - 0.0 k/mm3 COVID-19, RSV, and Flu A/B, Rapid PCR (11/11/2024) ???Influenza A PCR - NEGATIVE???Influenza B PCR - NEGATIVE???RSV PCR - NEGATIVE???COVID-19 PCR Specimen Source - NASAL???COVID-19 PCR Result - NEGATIVE Creatinine (11/14/2024) ???Creatinine-Blood - 0.68 mg/dL???Estimated GFR Creatinine - 102 ML/MIN/1.73 M2 Electrolytes (11/14/2024) ???Sodium - 137 mmol/L???Potassium - 4.4 mmol/L???Chloride - 101 mmol/L???Bicarbonate Level - 22 mmol/L???Anion Gap - 14 mmol/L Glucose Level (11/14/2024) ???Glucose Level - 138 mg/dL GLUCOSE POC (11/15/2024) ???Glucose, POC - 97 mg/dL HEMOGLOBIN A1C (11/11/2024) ???Hemoglobin A1C (Monitoring) - 5.8 % High??Sensitivity??Troponin T (11/11/2024) ???High Sensitivity Troponin (HSTnT) - 6 ng/L Hold Blue Top Tube (11/11/2024) ???Hold Blue Top - SPECIMEN DISCARDED AFTER 4 HOURS. HOLD TAPIA TUBE (11/11/2024) ???Hold Tapia Top - SPECIMEN DISCARDED AFTER 1 WEEK HOLD LAVENDER TUBE (11/11/2024) ???Hold Lavender Top - SPECIMEN DISCARDED AFTER 24 HOURS. Magnesium Level (11/12/2024) ???Magnesium - 2.3 mg/dL Phosphorus Level (11/12/2024) ???Phosphorus - 3.2 mg/dL ProBNP (11/11/2024) ???Nt-Probnp - 43 pg/mL Respiratory Pathogen PCR with COVID-19 (11/11/2024) ???Adenovirus by PCR - NEGATIVE???Coronavirus 229E by PCR (not COVID-19) - NEGATIVE???Coronavirus HKU1 by PCR (not COVID-19) - NEGATIVE???Coronavirus NL63 by PCR (not COVID-19) - NEGATIVE???Coronavirus OC43 by PCR (not COVID-19) - NEGATIVE???Human Metapneumovirus by PCR - POSITIVE???Rhinovirus/Enterovirus by PCR - NEGATIVE???Influenza A by PCR - NEGATIVE???Influenza B by PCR - NEGATIVE???Parainfluenza 1 by PCR - NEGATIVE???Parainfluenza 2 by PCR - NEGATIVE???Parainfluenza 3 by PCR - NEGATIVE???Parainfluenza 4 by PCR - NEGATIVE???RSV by PCR - NEGATIVE???Bordetella Pertussis by PCR - NEGATIVE??? Chlamydophila Pneumoniae by PCR - NEGATIVE???Mycoplasma Pneumoniae by PCR - NEGATIVE???COVID-19 (SARS-CoV-2) by PCR - NEGATIVE???Bordetella Parapertussis by PCR - NEGATIVE TSH with T4 Reflex (Adults Only) (11/11/2024) ???TSH - 1.80 uIU/mL You will be contacted within 72 hours with your results. Allergies (NKA means No Known Allergies) Latex??(rash) diphenhydrAMINE??(Feeling jittery, Somnolence, Palpitations - rapid, hyperactivity, sommulence, palpitation) melatonin??(Palpitations - fluttering) penicillin traMADol traZODone??(Palpitations) Problems Active Problems??(6) Asthma?? Fibromyalgia?? GERD (gastroesophageal reflux disease)?? Kidney stone?? Obese class I?? UI - Urinary incontinence?? Education Materials Below is the list of Educational Leaflet Providered with your Discharge Instructions. Valuables and Belongings I fully understand and agree that [facility] accepts no responsibility for all my personal property including clothing, toilet articles, radios, jewelry, dentures, hearing aids, rings, money, or any other property that is in my possession or is brought to me after admission. I understand certain valuables may be placed in a hospital safe for a short period of time. I understand that the hospital is not liable for loss or damage due to accident, fire, or other natural occurrence while said property is in the safe. I accept full responsibility for any personal property that I keep with me, and will not hold the hospital responsible in case of loss or disappearance. I acknowledge that i have been encouraged to send valuables and belongings home. ?? Review of Valuable and Belonging List: With patient Date for Pt to Sign Valuables/Belongings: 11/14/24 18:23:00 ?? Other Discharge Information ? Pulmonary Rehab Status?? Pulmonary Rehab Discharge Status?? Respiratory Rate: 18 br/min ? Common Emergency Awareness Tips IS IT A STROKE? Act FAST and Check for these signs: FACE Does the face look uneven? ARM Does one arm drift down? SPEECH Does their speech sound strange? TIME Call at any sign of stroke ?? Heart Attack Signs Chest discomfort: Most heart attacks involve discomfort in the center of the chest and lasts more than a few minutes, or goes away and comes back. It can feel like uncomfortable pressure, squeezing, fullness or pain. Discomfort in upper body: Symptoms can include pain or discomfort in one or both arms, back, neck, jaw or stomach. Shortness of breath: With or without discomfort. Other signs: Breaking out in a cold sweat, nausea, or lightheaded. Remember, MINUTES DO MATTER. If you experience any of these heart attack warning signs, call to get immediate medical attention! ?? Smoking can increase your chances of developing chronic health problems and can cause harmful effects to other family members in your house. If you smoke, you are strongly encouraged to quit. Please call [facility] Link at [phone] or [phone] Rental Units ([phone]) or log in to [email or web address] for referrals to smoking cessation programs. ?? 829 Suicide & Crisis Lifeline is available 11/03 if you or someone you know needs to find a reason to keep living. By calling 166 you'll be connected to a skilled, trained counselor at a crisis center in your area. INPATIENT DISCHARGE INSTRUCTIONS SIGNATURE PAGE KING ALOK Location:[facility] Registration Date and Time:11/11/2024 06:07 EDT Primary Care Physician: Elio MATHIS, Asma, Attending Physician: Michael Reyes DO, I ALOK MALIK, have received the above patient education materials/instructions and have verbalized understanding. If ambulance or transport services are being used I further acknowledge being given a choice of service. ?? If you need to contact me, please call me at this number: . 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 Name: 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 Signature: Relationship to Patient: Witness Name/Signature: Date: Patient Care team information Care Team Personnel Name: Riddhi Paulino RN Position: S RN Member Role: Primary Care Nurse Name: Padmini Fiore RN Position: S RN Member Role: Primary Care Nurse Name: Linda Faulkner RN Position: S RN Member Role: Primary Care Nurse Name: Gaudencio Ballard MD Position: Reference Physician Member Role: PCP Address: [address] [place], [place] [address] Telecom: Name: Juan Francisco Freeman RN Position: S RN Member Role: Primary Care Nurse Name: Jessica Butcher RN Position: S RN Member Role: Primary Care Nurse Name: Jeanette Carmona RN Position: S RN Member Role: Primary Care Nurse Name: Edwige Jennings Position: S RN Member Role: Primary Care Nurse Name: Cyndee Wong RN Position: S RN Member Role: Primary Care Nurse Name: Lee Aden MD Position: [facility] Physician - Infectious Disease Member Role: Lifetime Consulting Physician Address: [address] [place] [address] [place] [address]- Telecom: Name: Shalini Mckee RN Position: S RN Member Role: Primary Care Nurse Care Team Related Persons Name: MARGARITA MALIK Name: ELIU MALIK Insurance Providers Guarantor name: ALOK MALIK Health Plan Information #: 1 Payer: [employer] Member Number: [id number] Policy Number: NA Group Number: NA Health Plan Information #: 2 Payer: [employer] Member Number: [id number] Policy Number: NA Group Number: [id number]
--- OUTSIDE RECORDS SUMMARY | 2024-11-18 11:15 | XMS_ITS | Clinical Summary ---
Author Organization [facility] Address [address] [place] [address] Care Team Providers Care Window And Door Installer Name Role Phone Margie Pham MD Primary Care Provider [phone] Allergies Active Allergy Reactions Criticality Noted Date [...] PCV21) 08/20/2021 08/20/2016, 04/17/2016 Mammogram 09/16/2021 09/16/2019 Alcohol/Substance Use Screening 08/19/2024 Depression Screening and Follow-Up 08/19/2024 Social Drivers of Health Ghada ual Screening 08/19/2024 Influenza Vaccine (Season Ended) 2025 DTaP,Tdap,and Td Vaccines (3 - Td or Tdap) 01/16/2029 01/16/2019, 06/26/2012, 08/27/2003 RSV Vaccine (60+ years old a nd patients) (1 - 1-dose 75+ series) 2042 Medical Devices Implanted Type Area Rod Bending Machine Operator Device Identifier Shelf Expiration Date Model / Serial / Lot Mesh Pelvic Prolapse Polypropylene Y Shape [id number] [facility] - [id number] - [id number] Implanted:Qty: 1 on 10/13/2018 by Liat Sheikh MD at [facility] Mesh N/A: Vagina COLOPLAST 05/15/2021 [id number] / [id number] / [id number] Insurance [facility] Advance Directives Documents on File Type Date Recorded Patient 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
--- OUTSIDE RECORDS SUMMARY | 2024-11-18 11:16 | XMS_ITS ---
Author Organization [facility] Address [address] [place] [id number] Care Team Providers Care Dielectric Testing Machine Operator Name Role Phone Elio MATHIS, Asma Primary Care Provider Brock Alcocer [phone] Encounters Encounter Location Date Provider Diagnosis [address] [id number] 11/09/2024 Brock Ordonez Plan Of Treatment No Information Progress Notes * Lasha MALIKeDOB:[birth year] (59 yo F)Acc No.[id number]:11/09/2024 Patient:?Janna MALIK :1965???Age:59 Y???Sex:Female Address:[address] [place] [address], [id number] * true * Date:? Generated for Printi mega/Keren/eTransmitting on:?11/18/2024 11:15 AM EDT
== END 2024-11-18 10:30 | disposition home or self-care (01) ==
LOC: HO.HMCC 09:53
PROVIDERS: PCP Internal Medicine; Visit Provider Internal Medicine
DX: Z09 Encounter for follow-up examination after completed treatment for conditions other than malignant neoplasm (principal); J12.3 Human metapneumovirus pneumonia; R06.02 Shortness of breath; R53.82 Chronic fatigue, unspecified

== ENCOUNTER → 2024-11-18 09:52 | Outpatient (BNVA) | payer OTHER, SELFPAY | PROVIDERS: PCP Internal Medicine; Visit Provider Internal Medicine | DX: Z09 Encounter for follow-up examination after completed treatment for conditions other than malignant neoplasm (principal); J12.3 Human metapneumovirus pneumonia; R06.02 Shortness of breath; R53.82 Chronic fatigue, unspecified | CPT/HCPCS: 96127; 99212 ==

== ENCOUNTER 2024-12-08 11:48 | Outpatient (AMB) | payer OTHER, SELFPAY ==
--- NOTE | 2024-12-08 11:56 | MHC.PC.OV ---
Vital Signs 12/08/24 11:58 Height 5 ft 4 in Weight 181 lb BMI 31.1 BP 110/80 Blood Pressure Location Rt brachial Position Sitting Respiration 16 Pulse 73 Pulse Source Pulse Oximeter Temp 98.0 F Temp Source Oral Pulse Oximetry (%) 97 Oxygen Delivery Method Room Air Intake Visit Reasons: 2 weeks follow up Allergies cat dander [cats] Allergy (Intermediate, Verified 12/08/24 11:56) Itchy Eyes and burning cigarette smoke Allergy (Intermediate, Verified 12/08/24 11:56) migraines latex Allergy (Intermediate, Verified 12/08/24 11:56) Rash trazodone Allergy (Intermediate, Verified 12/08/24 11:56) palpitations Penicillins Adverse Reaction (Intermediate, Verified 12/08/24 11:56) Abdominal Pain tamsulosin Allergy (Severe, Uncoded 12/08/24 11:56) Dizziness Medication List - Last Reconciled 12/08/24 by Gaudencio Ballard MD [Adult Sanitary Wipes As directed] albuterol sulfate 90 mcg/actuation 2 puffs inhalation Q6H PRN albuterol sulfate 2.5 mg (3 mL) inhalation QID PRN amitriptyline 10 mg PO BEDTIME disposable gloves (Disposable Latex-Free Gloves) Use As directed gabapentin 300 mg PO BEDTIME 90 days lorazepam mg PO DAILY magnesium 250 mg PO BID metoprolol succinate ER mg PO DAILY nebulizers with supplies and all needed equipment, to use for updraft treatments pantoprazole 40 mg PO BID [Poise incontinence pads Requires poise due to allergies. NS] pyridoxine (vitamin B6) 100 mg PO DAILY [suction grab bars As directed] tacrolimus 0.03% topical DAILY tramadol 50 mg PO BID PRN 15 days turmeric mg PO [Updraft machine tubing As directed] venlafaxine ER 150 mg PO BEDTIME 90 days Tobacco use date assessed: 12/08/24 Dental Screening Dental Screen Date: 11/18/24 Did you have a dental visit in the last 12 months?: Yes Did you have a dental problem in the last 6 months where you did not have access to dental care?: No Was dental information given to patient?: Patient has dentist HPI 2 weeks follow up HPI Details Follow-up from 2 weeks visit - The patient is a 59-year-old female presenting with multiple chronic conditions warranting follow-up and management. - The patient has a history of severe respiratory distress secondary to human metapneumovirus, which previously necessitated intensive care admission. Presently, no active respiratory symptoms are described. Patient has recovered completely - She suffers from recurrent kidney stones and underwent blood work at [facility] for evaluation; specifics of stone frequency or complications are not detailed beyond recent lab work for kidney function indicating stability. - The patient reports chronic bilateral knee pain attributed to arthritis, with a noted impact on ambulation. - She is managing plantar fasciitis with notable heel pain described as walking on needles, further complicated by heel spurs. - There is an ongoing management of fibromyalgia with associated chronic pain affecting daily activities. - Anxiety is a significant concern, partially managed with gabapentin, but eliciting symptoms include feeling oozy and impairment in functioning. - The patient was informed about prediabetes with a fasting glucose of 112 mg/dL and is currently not on medication but undergoing monitoring. - The patient?s obesity is recognized as a contributing factor to her condition, with exploration of potential management through a specialized program that includes an obesity specialist and nutritional counseling. - patient is requesting jury duty letter of exemption, 02/22/2025 secondary to her medical conditions, letter provided She says that she is legally disabled as well however she does not have a letter of disability with her at this time she will provide that Medications - Gabapentin for anxiety and fibromyalgia pain - amitriptyline, specified as a medication to assist with sleep and anxiety - Prednisone (from urgent care for asthma exacerbation) - Symbicort (maintenance inhaler for asthma) - Albuterol solution for nebulizer (for asthma management) Problem List - Respiratory distress (history of ICU admission due to viral infection affecting lungs) - Kidney stones - Bilateral knee pain secondary to arthritis - Plantar fasciitis with heel spurs - Fibromyalgia - Anxiety - Prediabetes - Obesit - chronic back pain, patient is established with [employer] [facility] - chronic urine incontinence using pads and getting wipes from insurance Patient Instructions - Monitor blood glucose levels to keep an eye on prediabetes. - Discuss obesity management program with a specialist and consider nutritional counseling. Referral placed - Follow-up on insurance coverage regarding wipes and ensure correct script quantity is communicated. Patient requesting 3 units per month - Continue using the Symbicort inhaler twice daily. - Use the Albuterol nebulizer as needed for relief of shortness of breath. Review of Systems General: No fever no chills neurological: No headaches no dizziness ear nose throat: No sore throat no hearing difficulty no ear pain cardiovascular: No syncope, no chest pain, no palpitations gastrointestinal: No nausea vomiting or diarrhea endocrine: No polyuria polydipsia no heat intolerance genitourinary: No dysuria , urine incontinence present skin: No new complaints Physical Exam general: No acute distress HEENT: Ear pain, throat burning, no infection, some inflammation neck: Supple respiratory system: Lungs are clear, able to talk in full sentences, no audible wheeze, no stridor cardiovascular: S1-S2 RRR gastrointestinal: No pain extremities: Pain in knees, plantar fasciitis, bone spurs on heel PLANOGRAMMER: Alert awake oriented x3 motor sensory intact skin: Normal turgor PFSH Medical History Kidney stones Kidney stones, calcium oxalate Perioral dermatitis Muscle spasm Microscopic hematuria Hot flashes Vitamin D deficiency Fibromyalgia Osteoarthritis Chronic GERD Depression, major, recurrent Surgical History History of esophagogastroduodenoscopy (EGD) H/O colonoscopy History of hysterectomy History of surgery Family History Father No problems noted. Mother Asthma Dementia Alzheimer's disease Paternal Aunt Lung cancer Breast cancer, Onset Age: 62 Brother No problems noted. Brother No problems noted. Brother No problems noted. Sister No problems noted. Sister No problems noted. Sister No problems noted. Paternal Aunt Breast cancer, Onset Age: 70 Other Mental health disorder Social History Household Members: Significant Other and Children Household Members Other:: 2 children Housing: House Are you a primary patient care provider to a significant other at home: No Do you presently have visiting nurse or other home services: No Alcohol intake: never Patient Tobacco Use Status: Never used Tobacco e-Cigarette/Vaping Use: Never Used service: No Current occupational status: unemployed and disabled Cognitive needs: No Hearing needs: No Vision needs: Yes Female Reproductive History Menstrual Age of Menarche: 15 Questionnaire Thrive Questionnaire Date Thrive assessed: 10/27/24 I am a: Patient What is your living situation today?: I have a steady place to live Within the past 12 months, did the food you bought not last and you didn't have the money to get more?: Never true Within the past 12 months, did you worry whether your food would run out before you got money to buy more?: Never true Do you have trouble paying for medicines?: No Do you have trouble getting transportation to medical appointments?: No Do you have trouble paying your heating and electricity bill?: No Do you have trouble taking care of your child, family member or friend?: No Do you have trouble with day-to-day activities such as bathing, preparing meals, shopping, managing finances, etc.?: I choose not to answer this question Are you currently unemployed and looking for a job?: Yes Are you interested in more education?: No Please select the resources that you would like help with: None Currently or been in a relationship where the following occur: No concerns reported THRIVE Score: 0 OLI-7 AMB Questionnaire OLI-7 Date OLI - 7 assessed: 11/18/24 Source: Developed by Drs. Gatito Agustin, Catina Hunter, Adrien Liao and colleagues, with an educational kori from [employer]. Physical exam (Primary Care) Vital Signs: Last Vital Signs Temp 98.0 F 12/08/24 11:58 Pulse 73 12/08/24 11:58 Resp 16 12/08/24 11:58 BP 110/80 12/08/24 11:58 Pulse Ox 97 12/08/24 11:58 Oxygen Delivery Method Room Air 12/08/24 11:58 BMI result Body Mass Index 31.1 Tobacco/Smoking Status: Tobacco use Status Tobacco use date assessed 12/08/24 12/08/24 12:01 Patient Tobacco Use Status Never used Tobacco 12/08/24 12:01 e-Cigarette/Vaping Use Never Used 12/08/24 12:01 Thrive Assessment: Date of Thrive Assessment Date Thrive assessed 10/27/24 12/08/24 12:01 Currently or been in a relationship where the following occur: No concerns reported Coding Level of Care Code Est Pt Level 5 (64313) Diagnoses Moderate asthma without complication, unspecified whether persistent J45.909 Asthma complication type: uncomplicated Asthma persistence: unspecified Chronic pain of both knees M25.561; M25.562; G89.29 Chronicity: chronic Chronic pain syndrome G89.4 Fibromyalgia M79.7 Class 1 obesity due to excess calories with serious comorbidity and body mass index (BMI) of 31.0 to 31.9 in adult E66.811; E66.09; Z68.31 Body mass index: BMI 31.0-31.9 Obesity classification: adult class 1 (BMI 30 - 34.9) Serious obesity comorbidity presence: with serious comorbidity Pre-diabetes R73.03 Sacroiliac joint pain M53.3 Lumbar radiculopathy M54.16 Bilateral kidney stones N20.0 Anxiety, generalized F41.1 Recurrent major depressive disorder, in partial remission F33.41 Active/Remission status: in partial remission Mixed stress and urge urinary incontinence N39.46 Urinary Incontinence type: mixed stress and urge incontinence Time Spent (min) 46 Assessment & Plan Assessment & Plan (1) Asthma, moderate: Code(s): J45.909 - Unspecified asthma, uncomplicated Category: Medical Qualifiers: Asthma complication type: uncomplicated Asthma persistence: unspecified Qualified Code(s): J45.909 - Unspecified asthma, uncomplicated (2) Bilateral knee pain: Code(s): M25.561 - Pain in right knee; M25.562 - Pain in left knee Category: Medical Qualifiers: Chronicity: chronic Qualified Code(s): M25.561 - Pain in right knee; M25.562 - Pain in left knee; G89.29 - Other chronic pain (3) Chronic pain syndrome: Code(s): G89.4 - Chronic pain syndrome Category: Medical (4) Fibromyalgia: Code(s): M79.7 - Fibromyalgia Category: Medical (5) Obesity due to excess calories: Code(s): E66.09 - Other obesity due to excess calories Category: Medical Qualifiers: Body mass index: BMI 31.0-31.9 Obesity classification: adult class 1 (BMI 30 - 34.9) Serious obesity comorbidity presence: with serious comorbidity Qualified Code(s): E66.811 - Obesity, class 1; E66.09 - Other obesity due to excess calories; Z68.31 - Body mass index [BMI] 31.0-31.9, adult (6) Pre-diabetes: Code(s): R73.03 - Prediabetes Category: Medical (7) Sacroiliac joint pain: Code(s): M53.3 - Sacrococcygeal disorders, not elsewhere classified Category: Medical (8) Lumbar radiculopathy: Code(s): M54.16 - Radiculopathy, lumbar region Category: Medical (9) Bilateral kidney stones: Code(s): N20.0 - Calculus of kidney Category: Medical (10) Anxiety, generalized: Code(s): F41.1 - Generalized anxiety disorder Category: Medical (11) Depression, major, recurrent: Code(s): F33.9 - Major depressive disorder, recurrent, unspecified Category: Medical Qualifiers: Active/Remission status: in partial remission Qualified Code(s): F33.41 - Major depressive disorder, recurrent, in partial remission (12) Urine incontinence: Code(s): R32 - Unspecified urinary incontinence Category: Medical Qualifiers: Urinary Incontinence type: mixed stress and urge incontinence Qualified Code(s): N39.46 - Mixed incontinence Plan Follow-up from 2 weeks visit - The patient is a 59-year-old female presenting with multiple chronic conditions warranting follow-up and management. - The patient has a history of severe respiratory distress secondary to human metapneumovirus, which previously necessitated intensive care admission. Presently, no active respiratory symptoms are described. Patient has recovered completely - She suffers from recurrent kidney stones and underwent blood work at [facility] for evaluation; specifics of stone frequency or complications are not detailed beyond recent lab work for kidney function indicating stability. - The patient reports chronic bilateral knee pain attributed to arthritis, with a noted impact on ambulation. - She is managing plantar fasciitis with notable heel pain described as walking on needles, further complicated by heel spurs. - There is an ongoing management of fibromyalgia with associated chronic pain affecting daily activities. - Anxiety is a significant concern, partially managed with gabapentin, but eliciting symptoms include feeling oozy and impairment in functioning. - The patient was informed about prediabetes with a fasting glucose of 112 mg/dL and is currently not on medication but undergoing monitoring. - The patient?s obesity is recognized as a contributing factor to her condition, with exploration of potential management through a specialized program that includes an obesity specialist and nutritional counseling. - patient is requesting jury duty letter of exemption, 02/22/2025 secondary to her medical conditions, letter provided She says that she is legally disabled as well however she does not have a letter of disability with her at this time she will provide that Medications - Gabapentin for anxiety and fibromyalgia pain - amitriptyline, specified as a medication to assist with sleep and anxiety - Prednisone (from urgent care for asthma exacerbation) - Symbicort (maintenance inhaler for asthma) - Albuterol solution for nebulizer (for asthma management) Problem List - Respiratory distress (history of ICU admission due to viral infection affecting lungs) - Kidney stones - Bilateral knee pain secondary to arthritis - Plantar fasciitis with heel spurs - Fibromyalgia - Anxiety - Prediabetes - Obesit - chronic back pain, patient is established with [employer] [facility] - chronic urine incontinence using pads and getting wipes from insurance Patient Instructions - Monitor blood glucose levels to keep an eye on prediabetes. - Discuss obesity management program with a specialist and consider nutritional counseling. Referral placed - Follow-up on insurance coverage regarding wipes and ensure correct script quantity is communicated. Patient requesting 3 units per month - Continue using the Symbicort inhaler twice daily. - Use the Albuterol nebulizer as needed for relief of shortness of breath. Orders: Orders Complete Blood Count Auto Diff 2 Months E66.09 - Other obesity due to excess calories, E66.811 - Obesity, class 1, G89.4 - Chronic pain syndrome, J45.909 - Unspecified asthma, uncomplicated, M53.3 - Sacrococcygeal disorders, not elsewhere classified, M54.16 - Radiculopathy, lumbar region, R73.03 - Prediabetes, Z68.31 - Body mass index [BMI] 31.0-31.9, adult Comprehensive [place]. Panel Fast 2 Months E66.09 - Other obesity due to excess calories, E66.811 - Obesity, class 1, G89.4 - Chronic pain syndrome, J45.909 - Unspecified asthma, uncomplicated, M53.3 - Sacrococcygeal disorders, not elsewhere classified, M54.16 - Radiculopathy, lumbar region, R73.03 - Prediabetes, Z68.31 - Body mass index [BMI] 31.0-31.9, adult Hemoglobin A1c 2 Months E66.09 - Other obesity due to excess calories, E66.811 - Obesity, class 1, G89.4 - Chronic pain syndrome, J45.909 - Unspecified asthma, uncomplicated, M53.3 - Sacrococcygeal disorders, not elsewhere classified, M54.16 - Radiculopathy, lumbar region, R73.03 - Prediabetes, Z68.31 - Body mass index [BMI] 31.0-31.9, adult Lipid Panel 2 Months E66.09 - Other obesity due to excess calories, E66.811 - Obesity, class 1, G89.4 - Chronic pain syndrome, J45.909 - Unspecified asthma, uncomplicated, M53.3 - Sacrococcygeal disorders, not elsewhere classified, M54.16 - Radiculopathy, lumbar region, R73.03 - Prediabetes, Z68.31 - Body mass index [BMI] 31.0-31.9, adult Referrals Bariatric Surgery Referral E66.09 - Other obesity due to excess calories Medications: Changed From [Adult Sanitary Wipes] As directed 4 multiple units 3RF Urine incontinence R32 - Unspecified urinary incontinence To [Adult Sanitary Wipes] 4 packs / month 4 multiple units 3RF Urine incontinence R32 - Unspecified urinary incontinence
[2024-12-08 11:58] VITALS: BP 110/80; PULSE 73; RESP 16; TEMP 36.7; O2SAT 97; BMI 31.1
--- OUTSIDE RECORDS SUMMARY | 2024-12-08 14:16 | XMS_ITS | Clinical Summary ---
Author Organization [facility] Address [address] [address] Phone Care Team Providers Care Senior Cyber Security Analyst Name Role Phone Gaudencio Ballard MD Primary Care Provider [phone] Allergies Active Allergy Reactions Criticality Noted Date [...] 11/27- ct abd Bilateral nonobstructing renal calculi. Encounters Date Type Department Care Team Description 12/03/2024 Orders Only [facility] [address] [place] [phone] Darrian Bell MD from Last 3 Months Immunizations Immunization Administration Dates Next Due Pneumococcal Conjugate 13-Valent [...] Office Visit [facility] [address] [address] Dania Celaya ARNP [address] [address] Health Maintenance Due Date Last Done Comments Breast Cancer Screening 1965 Hepatitis B Vaccine (1 of 3 - 19+ 3-dose series) 04/29 Colorectal Cancer Screening: Annual FOBT 2016 Colorectal Cancer Screening: Colonoscopy 2016 Colorectal Cancer Screening: Sigmoidoscopy 2016 Pneumococcal Vaccine: 50+ Years (2 of 2 - PPSV23) 05/2004/17/2016 Influenza Vaccine (Season Ended) 2025 Pneumococcal Vaccine: Peds ( 0 to 5 Years) and At-Risk Patients (6 to 49 Years) Discontinued 04/17/2016 Procedures Procedure Name Priority Date/Time Associated Diagnosis Comments URINE ALBUMIN / CREATININE RATIO Routine 12/03/2024 1:50 PM EDT RENAL FUNCTION PANEL Routine 12/03/2024 1:43 PM EDT from Last 3 Months Results * Urine Albumin / Creatinine Ratio (12/03/2024 1:50 PM EDT) Creatinine, Urine 36.0 mg/dL [facility] Microalbumin Urine Random <5.0 0.0 - 29.0 mg/L [facility] Microalbumin/Crea tinine Ratio <14 <30 mg/g creat [facility] 12/03/2024 1:50 PM EDT 12/03/2024 2:38 PM EDT us Darrian Bell MD LAB URINE ORDERABLES Final Resu lt INDRA [facility] [address] [place] [address] * Renal Function Panel (12/03/2024 1:43 PM EDT) Sodium 136 133 - 145 mmol/L [facility] Potassium 4.3 3.5 - 5.5 mmol/L [facility] Chloride 105 96 - 110 mmol/L [facility] Bicarbonate (CO2) 23 21 - 32 mmol/L [facility] Anion Gap 8 3 - 11 [facility] Glucose 88 70 - 100 mg/dL [facility] BUN 13 5 - 25 mg/dL [facility] Creatinine Serum 0.71 0.50 - 1.10 mg/dL [facility] eGFR 99 >=60 mL/min/1. 73m2 [facility] Comment:Calculation based on the?Chronic Kidney Disease Epidemiology Collaboration (CKD-EPI) equation refit?without adjustment for race. BUN/Creatinine Ratio 18.3 [facility] Albumin 3.6 3.2 - 5.0 g/dL [facility] Calcium 9.5 8.5 - 10.5 mg/dL [facility] Phosphorus 3.4 2.5 - 4.5 mg/dL [facility] 12/03/2024 1:43 PM EDT 12/03/2024 2:37 PM EDT us Darrian Bell MD LAB BLOOD ORDERABLES Final Resu lt INDRA [facility] [address] [place] [address] from Last 3 Months Insurance [facility] One Care Dual SNP ([id number]) [facility] One Care Dual SNP ([id number]) Care Teams Senior Cyber Security Analyst Relationship Specialty Start Date End Date Gaudnecio Ballard MD [facility] GIANLUCA DAWSON [address] PCP - General Internal Medicine 12/12/22
--- OUTSIDE RECORDS SUMMARY | 2024-12-08 14:16 | XMS_ITS ---
Author Organization [facility] Address [address] [place] [address] Care Team Providers Care Load Blocker Name Role Phone Elio MATHIS, Gaudencio Primary Care Provider UnavailBrock Caal Unavailable [phone] [place] Cox Unavailable [phone] Medications Medication SIG (Take, Route, Frequency, Duration) [...] Active Encounters Encounter Location Date Provider Diagnosis [address] [address] 11/17/2024 [place] Plan Of Treatment No Information Progress Notes * Lasha MALIKeDOB:[birth year] (59 yo F)Acc No.[id number]:11/17/2024 Progress Notes Patient:?Janna MALIK Provider:?[place] DPM :1965???Age:59 Y???Sex:Female D ate:11/17/2024 Address:[address] [place], [place] [phone] Pcp:Gaudencio Ballard MD Subjective: * Chief Complaints: [...] Cox DPM Date:?2024 Generated for Sofi ayoub/Keren/Rhea on:?12/08/2024 02:15 PM EDT
--- OUTSIDE RECORDS SUMMARY | 2024-12-08 14:16 | XMS_ITS | Clinical Summary ---
Author Organization [facility] Address [address] [place] [address] Care Team Providers Care Crosscutter Rolled Glass Name Role Phone Margie Pham MD Primary Care Provider [phone] Allergies Active Allergy Reactions Criticality Noted Date [...] series) 2042 Medical Devices Implanted Type Area Production Assembly Supervisor Device Identifier Shelf Expiration Date Model / Serial / Lot Mesh Pelvic Prolapse Polypropylene Y Shape [id number] [facility] - [id number] - [id number] Implanted:Qty: 1 on 10/13/2018 by Liat Sheikh MD at [facility] Mesh N/A: Vagina COLOPLAST 05/15/2021 [id number] / [id number] / [id number] Insurance [facility] Advance Directives Documents on File Type Date Recorded Patient Civil Cadd Technician Expl anation Health Care Proxy 03/07/2021 * Full Code (Latest Code Status on File) Date Activated Date Inactivated Comments 10/13/2018 5:38 AM 10/14/2018 4:15 PM Healthcare Agents on File Name Relationship Healthcare Agent Relationship Communication Evan Rufus Spouse Healthcare Proxy - Primar y Lisa Biggs Daughter Healthcare Prox y - Alternative Care Teams Crosscutter Rolled Glass Relationship Specialty Start Date End Date Margie Pham MD [address] PRIMARY CARE / [place] [address] PCP - General 06/18/18
--- OUTSIDE RECORDS SUMMARY | 2024-12-08 14:16 | XMS_ITS | Referral Summary ---
Author Organization [facility] Address [address] [place] [address] Care Team Providers Care Refinery Operator Light Ends Recovery Name Role Phone Margie Pham MD Primary Care Provider [phone] Allergies Active Allergy Reactions Criticality Noted Date [...] on file Medical Devices Implanted Type Area Tax Economist Device Identifier Shelf Expiration Date Model / Serial / Lot Mesh Pelvic Prolapse Polypropylene Y Shape [id number] [facility] - [id number] - [id number] Implanted:Qty: 1 on 10/13/2018 by Liat Sheikh MD at [facility] Mesh N/A: Vagina COLOPLAST 05/15/2021 [id number] / [id number] / [id number] Insurance [facility] Advance Directives Documents on File Type Date Recorded Patient Silo Filler Expl anation Health Care Proxy 03/07/2021 * Full Code (Latest Code Status on File) Date Activated Date Inactivated Comments 10/13/2018 5:38 AM 10/14/2018 4:15 PM Healthcare Agents on File Name Relationship Healthcare Agent Relationship Communication Evan Hooper Spouse Healthcare Proxy - Primar y Lisa Biggs Daughter Healthcare Prox y - Alternative Care Teams Refinery Operator Light Ends Recovery Relationship Specialty Start Date End Date Margie Pham MD [address] [place] [address] PRIMARY CARE / [place] [address] PCP - General 06/18/18
--- OUTSIDE RECORDS SUMMARY | 2024-12-08 14:16 | XMS_ITS | Patient Health Record ---
Author Organization [facility] [place] Address [address] [place] [address] Care Team Providers Care Special Education Itinerant Teacher Name Role Phone Elio MATHIS, [facility] Primary Care Provider UnavailBrock Caal Unavailable [phone] Black, [place] Unavailable [phone] Allergies Allergen (clinical drug ingredient) Drug/Non Drug [...] Status W/U Status Risk Notes Problem Gout (79810076) Gout of right foot (M10.9) Active confirmed Rx drug management (4) Vital Signs Blood pressure diastolic 80 mm Hg 11/05/2024 Height 5ft in 11/05/2024 Blood pressure systolic 120 mm Hg 11/05/2024 Weight 179 lbs 11/05/2024 BMI 34.95 kg/m2 11/05/2024 Encounters Encounter Location Date Provider Diagnosis [address] [address] 11/05/2024 Brock Ordonez Gout of right foot M10.9 and Pain in right toe(s) M79.[address] [facility] [address] 11/09/2024 [facility] [address] 11/09/2024 [facility] [address] 11/17/2024 Brock Ordonez Assessments Encounter Date Diagnosis [...] Insured Coverage Start Date Coverage End Date [facility] [employer] Claims [address] [place] [id number] Janna Hooper Self - patient is the insured Medical (General) History Medical History History ICD Code Anxiety Arthritis asthma Back,Hip,and Knee pain Fibromyalgia Reflux ( GERD) Chicken pox Surgical History Surgery Date(Month/Year) bladder suspension 2009, 2010, 2012 hysterectomy 2012, 2014, 2019 Hospitalization History Reason Date(Month/Year) CDI MRI bilateral ankles 07/21/20
--- OUTSIDE RECORDS SUMMARY | 2024-12-08 14:16 | XMS_ITS ---
Author Organization [facility] Address [address] [place] [address] Care Team Providers Care Typesetting Machine Tender Name Role Phone Elio MATHIS, Asma Primary Care Provider Brock Alcocer [phone] REASON FOR VISIT No show Encounters Encounter Location Date Provider Diagnosis [facility] [address] [place] [address] 11/17/2024 Brock Ordonez Plan Of Treatment No Information Progress Notes * Lasha MALIKeDOB:[birth year] (59 yo F)Acc No.[id number]:11/17/2024 Patient:?Janna MALIK :1965???Age:59 Y???Sex:Female Address:[address] [place] [address], [phone] * true * Date:? Generated for Rose Maryi mega/Keren/eTransmitting on:?12/08/2024 02:16 PM EDT
--- OUTSIDE RECORDS SUMMARY | 2024-12-08 14:16 | XMS_ITS | Encounter Summary ---
Author Organization [facility] Address [address] [address] Phone Care Team Providers Care Entry Driver Operator Name Role Phone Gaudencio Ballard MD Primary Care Provider [phone] Encounter Details Date Type Department Care Team (Late Contact Info) Description 12/03/2024 Orders Only [facility] [address] [phone] Darrian Bell MD [address] [address] Social History Tobacco Use Types Packs/Day Years [...] as of this encounter Plan of Treatment Upcoming Encounters Date Type Department Care Team (Late st Contact Info) Description 12/15/2024 10:45 AM EDT Office Visit [facility] [address] [address] Dania Celaya ARNP [address] [address] documented as of this encounter Procedures Procedure Name Priority Date/Time Associated Diagnosis Comments URINE ALBUMIN / CREATININE RATIO Routine 12/03/2024 1:50 PM EDT RENAL FUNCTION PANEL Routine 12/03/2024 1:43 PM EDT documented in this encounter Results * Urine Albumin / Creatinine Ratio (12/03/2024 1:50 PM EDT) Creatinine, Urine 36.0 mg/dL ME [facility] Microalbumin Urine Random <5.0 0.0 - 29.0 mg/L [facility] Microalbumin/Crea tinine Ratio <14 <30 mg/g creat [facility] 12/03/2024 1:50 PM EDT 12/03/2024 2:38 PM EDT us Darrian Bell MD LAB URINE ORDERABLES Final Resu lt Performing Organization Address City/State/[facility] Co de Phone Number [facility] [address] [place] [address] * Renal Function Panel (12/03/2024 1:43 PM EDT) Pathologist [facility] Sodium 136 133 - 145 mmol/L [facility] Potassium 4.3 3.5 - 5.5 mmol/L [facility] Chloride 105 96 - 110 mmol/L [facility] Bicarbonate (CO2) 23 21 - 32 mmol/L [facility] Anion Gap 8 3 - 11 [facility] Glucose 88 70 - 100 mg/dL [facility] BUN 13 5 - 25 mg/dL [facility] Creatinine Serum 0.71 0.50 - 1.10 mg/dL [facility] eGFR 99 >=60 mL/min/1. 73m2 [facility] Comment:Calculation based on the?Chronic Kidney Disease Epidemiology Collaboration (CKD-EPI) equation refit?without adjustment for race. BUN/Creatinine Ratio 18.3 [facility] Albumin 3.6 3.2 - 5.0 g/dL [facility] Calcium 9.5 8.5 - 10.5 mg/dL [facility] Phosphorus 3.4 2.5 - 4.5 mg/dL [facility] 12/03/2024 1:43 PM EDT 12/03/2024 2:37 PM EDT us Darrian Bell MD LAB BLOOD ORDERABLES Final Resu lt INDRA [facility] [address] [place] [address] documented in this encounter Visit Diagnoses Not on filedocumented in this encounter Care Teams Entry Driver Operator Relationship Specialty Start Date End Date Gaudencio Ballard MD [facility] [place] [address] PCP - General Internal Medicine 12/12/22 documented as of this encounter
--- OUTSIDE RECORDS SUMMARY | 2024-12-08 14:16 | XMS_ITS | Clinical Summary ---
Author Organization [facility] Address [address] [place] [address] Phone Care Team Providers Care Drafter Geophysical Name Role Phone Gaudencio Ballard MD Primary Care Provider [phone] Allergies Active Allergy Reactions Criticality Noted Date [...] L5-S1 and sacral canal. Bipolar 2 disorder (CMS/HCC V24, CMS/HCC V28) PTSD (post-traumatic stress disorder) 06/10/2013 Assessment & [...] Description 09/29/2024 3:00 PM EST Office Visit [facility] [address] [facility] [address] [place] [address] Jese Kidd MD PTSD (post-traumatic [...] Influencers of Health Screening 07/22/2022 Influenza Vaccine (Season Ended) 2025 DTaP,Tdap,and Td Vaccines (5 - Td or [...] age to complete this topic Meningococcal B Vaccine Aged Out No l onger eligible based on patient's age to complete this topic RSV Immunization Patients Under 20 months Aged Out No longer eligible based on patient's age to complete this topic Varicella Vaccines Aged Out No longer eligible based on patient's age to complete this topic Procedures Procedure Name Priority Date/Time Associated Diagnosis Comments MICROALBUMIN CREATININE URINE RATIO Routine 12/03/2024 1:50 PM EDT Iron deficiency anemia, unspecified iron deficiency anemia type Calculus of kidney RENAL FUNCTION PANEL Routine 12/03/2024 1:43 PM EDT Iron deficiency anemia, unspecified iron deficiency anemia type Calculus of kidney CBC WITH AUTO DIFFERENTIAL Routine 11/06/2024 1:55 [...] Recently Relevant to Health Maintenance Results * Microalbumin creatinine urine ratio (12/03/2024 1:50 PM EDT) Creatinine, Urine 36.0 mg/dL LAB CHEMISTRY METHOD 12/03/2024 4:07 PM EDT [facility] Microalb, Ur <5.0 0.0 - 29.0 mg/L LAB CHEMISTRY METHOD 12/03/2024 4:07 PM EDT [facility] Microalb/Creat Ratio <14 <30 mg/g creat LAB CHEMISTRY METHOD 12/03/2024 4:07 PM T [facility] Urine Urine specimen obtained by clean catch procedure / Unknown Non-blood Collection / Unknown 12/03/2024 1:50 PM EDT 12/03/2024 2:38 PM EDT us Darrian Bell MD LAB URINE ORDERABLES Final Resu lt [facility] [address] [place] [address], [place] [phone] * Renal function panel (12/03/2024 1:43 PM EDT) Sodium 136 133 - 145 mmol/L LAB CHEMISTRY METHOD 12/03/2024 3:39 PM EDT [facility] Potassium 4.3 3.5 - 5.5 mmol/L LAB CHEMISTRY METHOD 12/03/2024 3:39 PM [facility] Chloride 105 96 - 110 mmol/L LAB CHEMISTRY METHOD 12/03/2024 3:39 PM [facility] CO2 23 21 - 32 mmol/L LAB CHEMISTRY METHOD 12/03/2024 3:39 PM [facility] Anion Gap 8 3 - 11 LAB CHEMISTRY METHOD 12/03/2024 3:39 PM T [facility] Glucose 88 70 - 100 mg/dL LAB CHEMISTRY METHOD 12/03/2024 3:39 PM [facility] BUN 13 5 - 25 mg/dL LAB CHEMISTRY METHOD 12/03/2024 3:39 PM T [facility] Creatinine 0.71 0.50 - 1.10 mg/dL LAB CHEMISTRY METHOD 12/03/2024 3:39 PM [facility] eGFR 99 >=60 mL/min/1. 73m2 LAB CHEMISTRY METHOD 12/03/2024 3:39 PM [facility] Comment:Calculation based on the??Chronic Kidney Disease Epidemiology Collaboration (CKD-EPI) equation refit??without adjustment for race. BUN/Creatinine Ratio 18.3 LAB CHEMISTRY METHOD 12/03/2024 3:39 PM [facility] Albumin 3.6 3.2 - 5.0 g/dL LAB CHEMISTRY METHOD 12/03/2024 3:39 PM EDT [facility] Calcium 9.5 8.5 - 10.5 mg/dL LAB CHEMISTRY METHOD 12/03/2024 3:39 PM EDT [facility] Phosphorus 3.4 2.5 - 4.5 mg/dL LAB CHEMISTRY METHOD 12/03/2024 3:39 PM EDT [facility] Blood Venous blood specimen / Unknown Venipuncture / Unknown 12/03/2024 1:43 PM EDT 12/03/2024 2:37 PM EDT us Darrian Bell MD LAB BLOOD ORDERABLES Final Resu lt [facility] [address] [place] [address], * (ABNORMAL) CBC auto differential (11/06/2024 1:55 PM EDT) WBC 5.8 4.8 - 10.8 K/mcL LAB HEMETOLOGY METHOD 11/06/2024 2:26 PM EDT [facility] RBC 4.70 3.80 - 4.80 M/mcL LAB HEMETOLOGY METHOD 11/06/2024 2:26 PM EDT [facility] Hemoglobin 14.0 11.5 - 16.0 g/dL LAB HEMETOLOGY METHOD 11/06/2024 2:26 PM EDT [facility] Hematocrit 43.2 35.0 - 47.0 % LAB HEMETOLOGY METHOD 11/06/2024 2:26 PM EDT [facility] MCV 92.5 79.0 - 98.0 FL LAB HEMETOLOGY METHOD 11/06/2024 2:26 PM EDT [facility] MCH 30.0 27.0 - 32.0 pcg LAB HEMETOLOGY METHOD 11/06/2024 2:26 PM EDT [facility] MCHC 32.4 32.0 - 37.0 g/dL LAB HEMETOLOGY METHOD 11/06/2024 2:26 PM EDT [facility] RDW 12.7 11.0 - 15.0 % LAB HEMETOLOGY METHOD 11/06/2024 2:26 PM EDT [facility] Platelets 378 130 - 400 K/mcL LAB HEMETOLOGY METHOD 11/06/2024 2:26 PM EDT [facility] MPV 10.5 7.0 - 11.0 FL LAB HEMETOLOGY [facility] NRBC 0.0 <1.0 % LAB HEMETOLOGY METHOD [facility]/06[facility]24 [facility] NRBC Absolute 0.00 <0.10 K/mcL LAB HEMETOLOGY METHOD 11/06/2024 2:26 PM EDT [facility] Neutrophils Relative 53.4 % LAB HEMETOLOGY METHOD [facility]/06[facility]24 [facility] Lymphocytes Relative 24.4 % LAB HEMETOLOGY METHOD 11/06/2024 2:26 PM [facility] Monocytes Relative 17.6 % LAB HEMETOLOGY METHOD 11/06/2024 2:26 PM [facility] Eosinophils Relative 2.8 % LAB HEMETOLOGY METHOD 11/06/2024 2:26 PM T [facility] Basophils Relative 1.5 % LAB HEMETOLOGY METHOD 11/06/2024 2:26 PM [facility] Immature Granulocytes Relative 0.3 % LAB HEMETOLOGY METHOD 11/06/2024 2:26 PM [facility] Neutrophils Absolute 3.10 1.50 - 7.00 K/mcL LAB HEMETOLOGY METHOD 11/06/2024 2:26 PM EDT [facility] Lymphocytes Absolute 1.42 1.00 - 5.00 K/mcL LAB HEMETOLOGY METHOD 11/06/2024 2:26 PM EDT [facility] Monocytes Absolute 1.02(H) 0.20 - 1.00 K/mcL LAB HEMETOLOGY METHOD 11/06/2024 2:26 PM EDT [facility] Eosinophils Absolute 0.16 0.00 - 0.50 K/mcL LAB HEMETOLOGY METHOD 11/06/2024 2:26 PM EDT [facility] Basophils Absolute 0.09 0.00 - 0.20 K/mcL LAB HEMETOLOGY METHOD 11/06/2024 2:26 PM EDT [facility] Immature Granulocytes Absolute 0.02 0.00 - 0.03 K/mcL LAB HEMETOLOGY METHOD 11/06/2024 2:26 PM EDT [facility] Blood Venous blood specimen / Unknown Venipuncture / Unknown 11/06/2024 1:55 PM EDT 11/06/2024 2:15 PM EDT us Brock Ordonez DPM LAB BLOOD ORDERABLES Final Resul t Performing Organization Address [facility] Co de Phone Number [facility] [address] [place] [address], [place] [phone] * Sedimentation rate (11/06/2024 1:55 PM EDT) Sed Rate 24 0 - 30 mm/hr LAB HEMETOLOGY METHOD 11/06/2024 2:40 PM EDT [facility] Blood Venous blood specimen / Unknown Venipuncture / Unknown 11/06/2024 1:55 PM EDT 11/06/2024 2:15 PM EDT us Brock Ordonez DPGayle LAB BLOOD ORDERABLES Final Resul t Performing Organization Address City/[facility] Co de Phone Number [facility] [address] [place] [address], * Uric acid (11/06/2024 1:55 PM EDT) Uric Acid 4.1 3.1 - 7.8 mg/dL LAB CHEMISTRY METHOD 11/06/2024 3:40 PM EDT [facility] Blood Venous blood specimen / Unknown Venipuncture / Unknown 11/06/2024 1:55 PM EDT 11/06/2024 2:14 PM EDT Brock Ordonez DPM LAB BLOOD ORDERABLES Final Resul t Performing Organization Address [facility] de Phone Number [facility] [address] [place] [address], * ECG 12 lead (09/29/2024 3:25 PM EST) Ventricular Rate ECG 72 BPM [facility] Atrial Rate 72 BPM [facility] P-R Interval 148 ms [facility] QRS Duration 70 ms [facility] Q-T Interval 392 ms GEMUSE QTc 429 ms GEMUSE P Wave [place] 37 degrees GEMUSE R [place] 16 degrees GEMUSE T [place] 35 degrees GEMUSE ECG Interpretation Normal sinus rhythm Normal ECG When compared with ECG of 02-SEP-2017 15:42, No significant change was found Confirmed by JESE KIDD ([id number]) on 09/29/2024 5:09:14 PM [facility] 09/29/2024 3:25 PM EST 09/29/2024 5:09 PM EST Jese Kidd MD ECG ORDERABLES Final Result Performing Organization Address [facility] Co de Phone Number [facility] * SCR MAMMO BI INCL CAD [...] cancer risk category Low (<15%) Procedure Note MontejoNataly duncan - 08/07/2022 This is a summary report. [...] Most Recently Relevant to Health Maintenance Insurance [facility] MEDICAID Care Teams Drafter Geophysical Relationship Specialty Start Date End Date Gaudencio Ballard MD [address] [place] [address] PCP - General Internal Medicine 09/16/19
--- OUTSIDE RECORDS SUMMARY | 2024-12-08 14:16 | XMS_ITS | Clinical Summary ---
Author Organization [facility] Address [address] [place] [address] Care Team Providers Care Bistro Server Name Role Phone Margie Pham MD Primary Care Provider [phone] Allergies Active Allergy Reactions Criticality Noted Date [...] age to complete this topic Care Teams Bistro Server Relationship Specialty Start Date End Date Margie Pham MD PCP - General Internal Medicine 10/25/17
--- OUTSIDE RECORDS SUMMARY | 2024-12-08 14:17 | XMS_ITS ---
Author Organization [facility] Address [address] [place] [address] Care Team Providers Care Site Foreman Name Role Phone Elio MATHIS, Asma Primary Care Provider Brock Alcocer [phone] Encounters Encounter Location Date Provider Diagnosis [address] [address] 11/09/2024 Brock Ordonez Plan Of Treatment No Information Progress Notes * Lasha MALIKeDOB:[birth year] (59 yo F)Acc No.[id number]:11/09/2024 Patient:?Janna MALIK :1965???Age:59 Y???Sex:Female Address:[address] [place] [address], [phone] * true * Date:? Generated for Printi ng/Faakirag/eTransmitting on:?12/08/2024 02:16 PM EDT
== END 2024-12-08 12:30 | disposition home or self-care (01) ==
LOC: HO.HMCC 11:49
PROVIDERS: PCP Internal Medicine; Visit Provider Internal Medicine
DX: M25.561 Pain in right knee (principal); F33.41 Major depressive disorder, recurrent, in partial remission; E66.09 Other obesity due to excess calories; Z68.31 Body mass index [BMI] 31.0-31.9, adult; J45.909 Unspecified asthma, uncomplicated; E66.811 Obesity, class 1; M25.562 Pain in left knee; G89.29 Other chronic pain; G89.4 Chronic pain syndrome; M79.7 Fibromyalgia; R73.03 Prediabetes; M53.3 Sacrococcygeal disorders, not elsewhere classified

== ENCOUNTER → 2024-12-08 11:48 | Outpatient (BNVA) | payer OTHER, SELFPAY | PROVIDERS: PCP Internal Medicine; Visit Provider Internal Medicine | DX: J45.909 Unspecified asthma, uncomplicated (principal); M25.561 Pain in right knee; M25.562 Pain in left knee; G89.29 Other chronic pain; M79.7 Fibromyalgia; E66.09 Other obesity due to excess calories; Z68.31 Body mass index [BMI] 31.0-31.9, adult; R73.03 Prediabetes; M53.3 Sacrococcygeal disorders, not elsewhere classified; M54.16 Radiculopathy, lumbar region; F41.1 Generalized anxiety disorder; F33.41 Major depressive disorder, recurrent, in partial remission; N39.46 Mixed incontinence; Z71.3 Dietary counseling and surveillance | CPT/HCPCS: 99212 ==

== ENCOUNTER 2024-12-28 11:48 | Outpatient (AMB) | payer OTHER, SELFPAY ==
[2024-12-28 11:58] VITALS: BP 114/78; PULSE 90; O2SAT 98; BMI 30.4
--- NOTE | 2024-12-28 11:58 | A.OFFVIS_ITS ---
Vital Signs 12/28/24 11:58 Height 5 ft 4 in Weight 177 lb 4.026 oz BMI 30.4 BP 114/78 Blood Pressure Location Lt brachial Position Sitting Pulse 90 Pulse Source Pulse Oximeter Pulse Oximetry (%) 98 Oxygen Delivery Method Room Air Intake Visit Reasons: S/P EGD; Dr. Paz Intake Note: Pt presents to the office today for a s/p EGD. Allergies cat dander [cats] Allergy (Intermediate, Verified 12/28/24 12:00) Itchy Eyes and burning cigarette smoke Allergy (Intermediate, Verified 12/28/24 12:00) migraines latex Allergy (Intermediate, Verified 12/28/24 12:00) Rash trazodone Allergy (Intermediate, Verified 12/28/24 12:00) palpitations Penicillins Adverse Reaction (Intermediate, Verified 12/28/24 12:00) Abdominal Pain tamsulosin Allergy (Severe, Uncoded 12/28/24 12:00) Dizziness HPI HPI S/P EGD; Dr. Paz: Details: 59 yr old f called for f/u Initially seen [facility] [place] [facility] needed screening colonoscopy abdominal bloating GERD she had 6 surgeries due to bladder mesh and cystocele issues TTG was negative US 12/2021 hepatic steatosis left renal stones, calcifications , renal cyst neg H pylori test EGD/colonsocopy: 07/2022 Endoscopy Findings: sliding hiatal hernia esophagitis schatzki ring Colonoscopy Findings: internal hemorrhoids Path: A. Stomach, biopsy: Antral-type and oxyntic mucosa with moderate chronic active/erosive inflammation; no Helicobacter organisms seen. B. EG junction, biopsy: - Cardiofundic-type mucosa with moderate chronic active inflammation and multilayered epithelium; no fully developed intestinal metaplasia seen. - Chronic active esophagitis (eosinophils and few neutrophils). C. Esophagus, distal, biopsy: Squamous epithelium within normal limits; no inflammation seen. CT- 08/09 kidney stones US 09/17/24 small kidney stone, left fatty liver EGD 09/2024: gastritis duodenitis esophagitis hiatal hernia inlet patch balloon dilation 20 mm at LES, UES and pylorus path with mild inflammation stomach and GEJ INTERIM: she feels much better since dilation she has some issues with constipation and bloating, she feels she was worse with her numerous surgeries for mesh she has some regurg with dick and food no abdominal pain reviewed her diet, cut down on eggs EXAM: GENERAL: The patient is well developed and nontoxic. VITAL SIGNS:see workflow HEENT: Nonicteric sclerae, PERRLA, EOMI. Oropharynx clear. Moist mucous membranes. Conjunctivae appear well perfused. No thyroid mass. CHEST: Chest wall is nontender. HEART: Regular rate and rhythm without murmurs. LUNGS: Clear to auscultation bilaterally. ABDOMEN: Soft, positive bowel sounds, nontender, no organomegaly.no flank tenderness SKIN: No rash, no excessive bruising, petechiae, or purpura. NEUROLOGIC: Cranial nerves II-XII intact without motor/sensory deficit. Psych: normal affect A/P: 1/ slow food bolus transit, satiety possibly due to colonic inertia from prior surgeries 2/ Lactulose intolerance PLAN: 1/ trial of motegrity 1 mg 2/ can also try quercetin, as she has allergies, and may help GI health as well 3/ can also try reglan, but she wants to avoid this 4/ discussed high risk foods for reflux, and which to avoid PFSH Medical History Kidney stones Kidney stones, calcium oxalate Perioral dermatitis Muscle spasm Microscopic hematuria Hot flashes Vitamin D deficiency Fibromyalgia Osteoarthritis Chronic GERD Depression, major, recurrent Surgical History History of esophagogastroduodenoscopy (EGD) H/O colonoscopy History of hysterectomy History of surgery Family History Father No problems noted. Mother Asthma Dementia Alzheimer's disease Paternal Aunt Lung cancer Breast cancer, Onset Age: 62 Brother No problems noted. Brother No problems noted. Brother No problems noted. Sister No problems noted. Sister No problems noted. Sister No problems noted. Paternal Aunt Breast cancer, Onset Age: 70 Other Mental health disorder Social History Household Members: Significant Other and Children Household Members Other:: 2 children Housing: House Are you a primary home health care respiratory therapist to a significant other at home: No Do you presently have visiting nurse or other home services: No Alcohol intake: never Patient Tobacco Use Status: Never used Tobacco e-Cigarette/Vaping Use: Never Used service: No Current occupational status: unemployed and disabled Cognitive needs: No Hearing needs: No Vision needs: Yes Female Reproductive History Menstrual Age of Menarche: 15 Physical Exam Vital Signs: Last Vital Signs Pulse 90 12/28/24 11:58 BP 114/78 12/28/24 11:58 Pulse Ox 98 12/28/24 11:58 Oxygen Delivery Method Room Air 12/28/24 11:58 BMI result Body Mass Index 30.4 Assessment & Plan Assessment & Plan (1) Bloating: Code(s): R14.0 - Abdominal distension (gaseous) Category: Medical Plan: as above Medications: New prucalopride (Motegrity) 1 mg PO DAILY 30 tabs 2RF Coding Level of Care Code Est Pt Level 3 (03011) Diagnoses Bloating R14.0
--- OUTSIDE RECORDS SUMMARY | 2024-12-28 12:29 | XMS_ITS ---
Author Organization [facility] Address [address] [place] [address] Care Team Providers Care Thermal Surfacing Machine Operator Name Role Phone Elio MATHIS, Gaudencio Primary Care Provider UnavailBrock Caal Unavailable [phone] Madison Cox Unavailable [phone] Medications Medication SIG (Take, Route, Frequency, Duration) [...] Active Encounters Encounter Location Date Provider Diagnosis [address] [address] 11/17/2024 Madison Cox Plan Of Treatment No Information Progress Notes * Lasha MALIKeDOB:[birth year] (59 yo F)Acc No.[id number]:11/17/2024 Progress Notes Patient:?Janna MALIK Provider:?Madison Cox DPM :1965???Age:59 Y???Sex:Female D ate:11/17/2024 Address:[address] [place], [place] [phone] Pcp:Gaudencio Ballard MD Subjective: * Chief Complaints: [...] Cox DPM Date:?2024 Generated for Sofi ayoub/Keren/Rhea on:?12/28/2024 12:29 PM EDT
--- OUTSIDE RECORDS SUMMARY | 2024-12-28 12:29 | XMS_ITS | Patient Health Record ---
Author Organization [facility] [place] Address [address] [place] [address] Care Team Providers Care Personal Financial Representative Name Role Phone Elio MATHIS, [facility] Primary Care Provider UnavailBrock Caal Unavailable [phone] Black, Madison Unavailable [phone] Allergies Allergen (clinical drug ingredient) Drug/Non Drug [...] Status W/U Status Risk Notes Problem Gout (09850927) Gout of right foot (M10.9) Active confirmed Rx drug management (4) Vital Signs Blood pressure diastolic 80 mm Hg 11/05/2024 Height 5ft in 11/05/2024 Blood pressure systolic 120 mm Hg 11/05/2024 Weight 179 lbs 11/05/2024 BMI 34.95 kg/m2 11/05/2024 Encounters Encounter Location Date Provider Diagnosis [address] [address] 11/05/2024 Brock Ordonez Gout of right foot M10.9 and Pain in right toe(s) M79.[address] [address] 11/09/2024 [facility] [address] 11/09/2024 [facility] [address] 11/17/2024 Brock Ordonez Assessments Encounter Date Diagnosis [...] Insured Coverage Start Date Coverage End Date [facility] [employer] Claims [address] [place] [id number] Janna Hooper Self - patient is the insured Medical (General) History Medical History History ICD Code Anxiety Arthritis asthma Back,Hip,and Knee pain Fibromyalgia Reflux ( GERD) Chicken pox Surgical History Surgery Date(Month/Year) bladder suspension 2009, 2010, 2012 hysterectomy 2012, 2014, 2019 Hospitalization History Reason Date(Month/Year) CDI MRI bilateral ankles 07/21/20
--- OUTSIDE RECORDS SUMMARY | 2024-12-28 12:29 | XMS_ITS | Clinical Summary ---
Author Organization [facility] Address [address] [address] Phone Care Team Providers Care Final Inspector Name Role Phone Gaudencio Ballard MD Primary Care Provider Allergies Active Allergy [...] 300 mg by mouth at bed time Active ALBUTEROL SULFATE PO Take by mouth [...] chew. Active pyridoxine (VITAMIN B-6) 100 MG tablet Take 100 mg by mouth 1 (one) time each day Active cholecalcifero l (VITAMIN D-3 SUPER STRENGTH) 50 MCG (2000 UT) tablet Vitamin D TABS oral in morning. 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 Chronic kidney disease, stage 2 (mild) Urinary incontinence 04/11/2023 04/11/2023 Foot pain 05/19/2019 04/12/2023 Plantar fasciitis 05/19/2019 04/12/2023 Lower abdominal pain 10/22/2018 04/11/2023 Urgency of urination 06/24/2015 04/11/2023 Other microscopic hematuria 06/17/201503/20 Nephrolithiasis 11/20/2010 04/11/2023 Iron deficiency anemia 08/17/2005 Overview (04/11/2023): 08/26 41 hct Overview: 08/26 42 hct Resolved Problems Problem Noted Date Diagnosed [...] Encounters Date Type Department Care Team Description 12/15/2024 10:45 AM EDT Office Visit [facility] [address] [address] Dania Celaya ARNP Chronic kidney disease, stage 2 (mild) (Primary Dx); Nephrolithiasis; Nephrocalcinosis 12/03/2024 Orders Only [facility] [address] [phone] Darrian Bell MD from Last 3 Months [...] Sign Reading Time Taken Comments Blood Pressure 110/70 12/15/2024 11:13 AM EDT Pulse 81 12/15/2024 11:13 AM EDT Temperature - - Respiratory Rate - - Oxygen Saturation 98% 12/15/2024 11:13 AM EDT Inhaled Oxygen Concentration - - Weight 81.6 kg (180 lb) 12/15/2024 11:13 AM EDT Height - - Body Mass Index - - Plan of Treatment Upcoming Encounters Date Type Department Care Team (Late st Contact Info) Description 12/15/2025 1:00 PM EDT Office Visit [facility] [address] [phone] Dania Celaya ARNP [address] [address] Health Maintenance Due Date Last [...] MD LAB URINE ORDERABLES Final Resu lt [facility] [address] [place] [address] * Renal Function Panel (12/03/2024 1:43 PM [...] LAB Calcium 9.5 8.5 - 10.5 mg/dL [facility] Phosphorus 3.4 2.5 - 4.5 mg/dL [facility] 12/03/2024 1:43 PM EDT 12/03/2024 2:37 PM EDT us Darrian Bell MD LAB BLOOD ORDERABLES Final Resu lt INDRA [facility] [address] [place] [address] from Last 3 Months Insurance [facility] Dual SNP ([id number]) [place]LE [id number] [facility] One Care Dual SNP ([id number]) [place] [id number] Care Teams Final Inspector Relationship Specialty Start Date End Date Gaudencio Ballard MD [address] [place] [address] PCP - General Internal Medicine 12/12/22
--- OUTSIDE RECORDS SUMMARY | 2024-12-28 12:29 | XMS_ITS ---
Author Organization [facility] Address [address] [place] [address] Care Team Providers Care Supervisor Dry Paste Name Role Phone Elio MATHIS, Asma Primary Care Provider Brock Alcocer [phone] REASON FOR VISIT No show Encounters Encounter Location Date Provider Diagnosis [facility] [address] [place] [address] 11/17/2024 Brock Ordonez Plan Of Treatment No Information Progress Notes * Lasha MALIKeDOB:[birth year] (59 yo F)Acc No.[id number]:11/17/2024 Patient:?Janna MALIK :1965???Age:59 Y???Sex:Female Address:[address] [place] [address], [phone] * true * Date:? Generated for Printi mega/Keren/eTransmitting on:?12/28/2024 12:29 PM EDT
--- OUTSIDE RECORDS SUMMARY | 2024-12-28 12:30 | XMS_ITS | Clinical Summary ---
Author Organization [place] [facility] [employer] Address [address] [place] [address] Phone Care Team Providers Care Energy Manager Name Role Phone Gaudencio Ballard MD Primary Care Provider [phone] Allergies Active Allergy Reactions Criticality Noted Date [...] anemia 08/17/2005 Overview (07/21/2024): 08/26 42 hct Immunizations Name Administration Dates Next Due Pneumococcal conjugate 13 va lent (Prevnar 13, PCV13) 2mo and older 04/17/2016 Td Tetanus diptheria (Tdvax) 7yo and older 08/27 Td, Unspecified 08/27/2003 Tdap Tetanus diptheria acell ular pertussis (Boostrix; Adacel) 7yo and older 06/26/2012 Surgical History Surgery Date Site/Laterality Comments ESOPHAGOGASTRODUODENOSCOPY 01/21/07 PROCEDURE: RI ESOPHAGOGASTRODUODENOSCOPY TRANSORAL DIAGNOSTIC; COMMENT: Normal PARTIAL HYSTERECTOMY 03/2010 PROCEDURE: RI SUPRACERVICAL ABDL HYSTER W/WO RMVL TUBE OVARY; COMMENT: Da Dragan TLH with sacropexy, mesh urethral support OTHER SURGICAL HISTORY PROCEDURE: FEMALE SLING SYS W/WO MATRL OTHER SURGICAL HISTORY PROCEDURE: RI RMVL PROSTC MATRL/MESH ABDL WALL FOR INFECTION BREAST SURGERY 2011 Right PROCEDURE: RI UNLISTED PROCEDURE BREAST; COMMENT: rt cyst removed [...] ACID Routine 11/06/2024 1:55 PM EDT Gout SCR MAMMO BI INCL CAD Routine 09/16/2019 11:31 AM EST Encounter for screening mammogram for malignant neoplasm of breast HEPATITIS C SCREENING Routine 06/21/2008 from Last 3 Months or Most Recently Relevant to Health Maintenance Results * Microalbumin creatinine urine ratio (12/03/2024 1:50 PM EDT) Creatinine, Urine 36.0 mg/dL LAB CHEMISTRY METHOD 12/03/2024 4:07 PM EDT [facility] Microalb, Ur <5.0 0.0 - 29.0 mg/L LAB CHEMISTRY METHOD 12/03/2024 4:07 PM EDT [facility] Microalb/Creat Ratio <14 <30 mg/g creat LAB CHEMISTRY METHOD 12/03/2024 4:07 PM EDT [facility] Urine Urine specimen obtained by clean catch procedure / Unknown Non-blood Collection / Unknown 12/03/2024 1:50 PM EDT 12/03/2024 2:38 PM EDT us Darrian Bell MD LAB URINE ORDERABLES Final Resu lt [facility] [address] [place] [address], [place] [phone] * Renal function panel (12/03/2024 1:43 PM EDT) Sodium 136 133 - 145 mmol/L LAB CHEMISTRY METHOD 12/03/2024 3:39 PM [facility] Potassium 4.3 3.5 - 5.5 mmol/L LAB CHEMISTRY METHOD 12/03/2024 3:39 PM [facility] Chloride 105 96 - 110 mmol/L LAB CHEMISTRY METHOD 12/03/2024 3:39 PM [facility] CO2 23 21 - 32 mmol/L LAB CHEMISTRY METHOD 12/03/2024 3:39 PM [facility] Anion Gap 8 3 - 11 LAB CHEMISTRY METHOD 12/03/2024 3:39 PM [facility] Glucose 88 70 - 100 mg/dL LAB CHEMISTRY METHOD 12/03/2024 3:39 PM [facility] BUN 13 5 - 25 mg/dL LAB CHEMISTRY METHOD 12/03/2024 3:39 PM [facility] Creatinine 0.71 0.50 - 1.10 mg/dL LAB CHEMISTRY METHOD 12/03/2024 3:39 PM [facility] eGFR 99 >=60 mL/min/1. 73m2 LAB CHEMISTRY METHOD 12/03/2024 3:39 PM [facility] Comment:Calculation based on the??Chronic Kidney Disease Epidemiology Collaboration (CKD-EPI) equation refit??without adjustment for race. BUN/Creatinine Ratio 18.3 LAB CHEMISTRY METHOD 12/03/2024 3:39 PM [facility] Albumin 3.6 3.2 - 5.0 g/dL LAB CHEMISTRY METHOD 12/03/2024 3:39 PM [facility] Calcium 9.5 8.5 - 10.5 mg/dL LAB CHEMISTRY METHOD 12/03/2024 3:39 PM [facility] Phosphorus 3.4 2.5 - 4.5 mg/dL LAB CHEMISTRY METHOD 12/03/2024 3:39 PM [facility] Blood Venous blood specimen / Unknown Venipuncture / Unknown 12/03/2024 1:43 PM EDT 12/03/2024 2:37 PM EDT us Darrian Bell MD LAB BLOOD ORDERABLES Final Resu lt [facility] [address] [place] [address], [place] [phone] * (ABNORMAL) CBC auto differential (11/06/2024 1:55 PM EDT) WBC 5.8 4.8 - 10.8 K/mcL LAB HEMETOLOGY METHOD 11/06/2024 2:26 PM EDT [facility] RBC 4.70 3.80 - 4.80 M/mcL LAB HEMETOLOGY METHOD 11/06/2024 2:26 PM EDT [facility] Hemoglobin 14.0 11.5 - 16.0 g/dL LAB HEMETOLOGY METHOD 11/06/2024 2:26 PM EDT [facility] Hematocrit 43.2 35.0 - 47.0 % LAB HEMETOLOGY METHOD 11/06/2024 2:26 PM EDT [facility] MCV 92.5 79.0 - 98.0 FL LAB HEMETOLOGY METHOD 11/06/2024 2:26 PM EDT [facility] MCH 30.0 27.0 - 32.0 pcg LAB HEMETOLOGY METHOD 11/06/2024 2:26 PM EDT [facility] MCHC 32.4 32.0 - 37.0 g/dL LAB HEMETOLOGY METHOD 11/06/2024 2:26 PM EDT [facility] RDW 12.7 11.0 - 15.0 % LAB HEMETOLOGY METHOD 11/06/2024 2:26 PM EDT [facility] Platelets 378 130 - 400 K/mcL LAB HEMETOLOGY METHOD 11/06/2024 2:26 PM EDT [facility] MPV 10.5 7.0 - 11.0 FL LAB HEMETOLOGY METHOD 11/06/2024 2:26 PM [facility] NRBC 0.0 <1.0 % LAB HEMETOLOGY METHOD 11/06/2024 2:26 PM [facility] NRBC Absolute 0.00 <0.10 K/mcL LAB HEMETOLOGY METHOD 11/06/2024 2:26 PM [facility] Neutrophils Relative 53.4 % LAB HEMETOLOGY METHOD 11/06/2024 2:26 PM [facility] Lymphocytes Relative 24.4 % LAB HEMETOLOGY METHOD 11/06/2024 2:26 PM [facility] Monocytes Relative 17.6 % LAB HEMETOLOGY METHOD 11/06/2024 2:26 PM [facility] Eosinophils Relative 2.8 % LAB HEMETOLOGY METHOD 11/06/2024 2:26 PM [facility] Basophils Relative 1.5 % LAB HEMETOLOGY METHOD 11/06/2024 2:26 PM [facility] Immature Granulocytes Relative 0.3 % LAB HEMETOLOGY METHOD 11/06/2024 2:26 PM [facility] Neutrophils Absolute 3.10 1.50 - 7.00 K/mcL LAB HEMETOLOGY METHOD 11/06/2024 2:26 PM [facility] Lymphocytes Absolute 1.42 1.00 - 5.00 K/mcL LAB HEMETOLOGY METHOD 11/06/2024 2:26 PM [facility] Monocytes Absolute 1.02(H) 0.20 - 1.00 K/mcL LAB HEMETOLOGY METHOD 11/06/2024 2:26 PM [facility] Eosinophils Absolute 0.16 0.00 - 0.50 K/[facility] LAB HEMETOLOGY METHOD 11/06/2024 2:26 PM EDT [facility] Basophils Absolute 0.09 0.00 - 0.20 K/[facility] LAB HEMETOLOGY METHOD 11/06/2024 2:26 PM EDT [facility] Immature Granulocytes Absolute 0.02 0.00 - 0.03 K/[facility] LAB HEMETOLOGY METHOD 11/06/2024 2:26 PM EDT [facility] Blood Venous blood specimen / Unknown Venipuncture / Unknown 11/06/2024 1:55 PM EDT 11/06/2024 2:15 PM EDT us Brock TSAI LAB BLOOD ORDERABLES Final Resul t Performing Organization Address [facility]/ZIP Co de Phone Number [facility] [address] [place] [address], [place] [phone] * Sedimentation rate (11/06/2024 1:55 PM EDT) Sed Rate 24 0 - 30 mm/hr LAB HEMETOLOGY METHOD 11/06/2024 2:40 PM EDT [facility] Blood Venous blood specimen / Unknown Venipuncture / Unknown 11/06/2024 1:55 PM EDT 11/06/2024 2:15 PM EDT us Brock Ordonez [facility] BLOOD ORDERABLES Final Resul t Performing Organization Address City/[facility]/ZIP Co de Phone Number [facility] [address] [place] [address], [place] [phone] * Uric acid (11/06/2024 1:55 PM EDT) Uric Acid 4.1 3.1 - 7.8 mg/dL LAB CHEMISTRY METHOD 11/06/2024 3:40 PM EDT [facility] Blood Venous blood specimen / Unknown Venipuncture / Unknown 11/06/2024 1:55 PM EDT 11/06/2024 2:14 PM EDT Brock Ordonez DPM LAB BLOOD ORDERABLES Final Resul t [facility] [address] [place] [address], * SCR MAMMO BI INCL CAD (09/16/2019 [...] C Screening (06/21/2008) Hepatitis C Screening Abstracted us Historical Provider HEALTH MAINTENANCE Final Result from Last 3 Months or Most Recently Relevant to Health Maintenance Insurance [facility] MEDICAID [place] [id number] Care Teams Energy Manager Relationship Specialty Start Date End Date Gaudencio Ballard MD [address] [place] [phone] PCP - General Internal Medicine 09/16/19
--- OUTSIDE RECORDS SUMMARY | 2024-12-28 12:30 | XMS_ITS | Referral Summary ---
Author Organization [facility] Address [address] [place] [address] Care Team Providers Care Project Landscape Architect Name Role Phone Margie Pham MD Primary Care Provider [phone] Allergies Active Allergy Reactions Criticality Noted Date [...] 36.4 ??C (97.6 ??F) 11/23/2020 4:07 PM E DT Respiratory Rate 18 10/22/2018 8:50 AM EST Oxygen Saturation 100% 10/22/2018 8:50 AM EST Inhaled Oxygen Concentration - - Weight 68.9 kg (152 lb) 11/23/2020 4:07 PM EDT Height 160 cm (5' 3 ) 10/20/2018 6:53 PM EST Body Mass Index 26.93 10/20/2018 6:53 PM EST Plan of Treatment Not on file Medical Devices Implanted Type Area Thermal Molder Device Identifier Shelf Expiration Date Model / Serial / Lot Mesh Pelvic Prolapse Polypropylene Y Shape [id number] [facility] - [id number] - [id number] Implanted:Qty: 1 on 10/13/2018 by Liat Sheikh MD at [facility] Mesh N/A: Vagina COLOPLAST 05/15/2021 [id number] / [id number] / [id number] Insurance [facility] [employer] Advance Directives Documents on File Type Date Recorded Patient Chief Transfer And Pumphouse Operator Expl anation Health Care Proxy 03/07/2021 * Full Code (Latest Code Status on File) Date Activated Date Inactivated Comments 10/13/2018 5:38 AM 10/14/2018 4:15 PM Healthcare Agents on File Name Relationship Healthcare Agent Relationship Communication Evan Hooper Spouse Healthcare Proxy - Primar y Lisa Biggs Daughter Healthcare Prox y - Alternative Care Teams Project Landscape Architect Relationship Specialty Start Date End Date Margie Pham MD [address] [place] [address] PRIMARY CARE / [place] [address] PCP - General 06/18/18
--- OUTSIDE RECORDS SUMMARY | 2024-12-28 12:30 | XMS_ITS | Clinical Summary ---
Author Organization [facility] Address [address] [place] [address] Care Team Providers Care Support Service Tech Name Role Phone Margie Pham MD Primary Care Provider [phone] Allergies Active Allergy Reactions Criticality Noted Date [...] series) 2042 Medical Devices Implanted Type Area Paint Trimmer Pipe Bowls Device Identifier Shelf Expiration Date Model / Serial / Lot Mesh Pelvic Prolapse Polypropylene Y Shape [id number] [facility] - [id number] - [id number] Implanted:Qty: 1 on 10/13/2018 by Liat Sheikh MD at [facility] Mesh N/A: Vagina COLOPLAST 05/15/2021 [id number] / [id number] / [id number] Insurance [facility] Advance Directives Documents on File Type Date Recorded Patient Inbound Sales Manager Expl anation Health Care Proxy 03/07/2021 * Full Code (Latest Code Status on File) Date Activated Date Inactivated Comments 10/13/2018 5:38 AM 10/14/2018 4:15 PM Healthcare Agents on File Name Relationship Healthcare Agent Relationship Communication Evan Rufus Spouse Healthcare Proxy - Primar y Lisa Biggs Daughter Healthcare Prox y - Alternative Care Teams Support Service Tech Relationship Specialty Start Date End Date Margie Pham MD [address] PRIMARY CARE / [place] [address] PCP - General 06/18/18
--- OUTSIDE RECORDS SUMMARY | 2024-12-28 12:30 | XMS_ITS | Clinical Summary ---
Author Organization [facility] Address [address] [place] [address] Care Team Providers Care Social Service Coordinator Name Role Phone Margie Pham MD Primary Care Provider [phone] Allergies Active Allergy Reactions Criticality Noted Date [...] age to complete this topic Care Teams Social Service Coordinator Relationship Specialty Start Date End Date Margie Pham MD PCP - General Internal Medicine 10/25/17
--- OUTSIDE RECORDS SUMMARY | 2024-12-28 12:30 | XMS_ITS ---
Author Organization [facility] Address [address] [place] [id number] Care Team Providers Care Grievance And Appeals Coordinator Name Role Phone Elio MATHIS, Asma Primary Care Provider Brock Alcocer [phone] Encounters Encounter Location Date Provider Diagnosis [address] [address] 11/09/2024 Brock Ordonez Plan Of Treatment No Information Progress Notes * Lasha MALIKeDOB:[birth year] (59 yo F)Acc No.[id number]:11/09/2024 Patient:?Janna MALIK :1965???Age:59 Y???Sex:Female Address:[address] [place] [address], [phone] * true * Date:? Generated for Printi ng/Faakirag/eTransmitting on:?12/28/2024 12:30 PM EDT
== END 2024-12-28 12:25 | disposition home or self-care (01) ==
LOC: HO.HGI 11:49
PROVIDERS: PCP Internal Medicine; Visit Provider Internal Medicine Gastroenterology
DX: R14.0 Abdominal distension (gaseous) (principal)
CPT/HCPCS: 99213

== ENCOUNTER → 2024-12-28 11:48 | Outpatient (BNVA) | payer OTHER, SELFPAY | PROVIDERS: PCP Internal Medicine; Visit Provider Internal Medicine Gastroenterology | DX: R14.0 Abdominal distension (gaseous) (principal) | CPT/HCPCS: 99212 ==

== ENCOUNTER 2025-01-19 14:59 | Outpatient (AMB) | payer OTHER, SELFPAY ==
[2025-01-19 15:14] VITALS: BP 136/84; PULSE 87; TEMP 36.8; O2SAT 97; BMI 30.4
--- NOTE | 2025-01-19 15:14 | A.OFFPC_ITS ---
Vital Signs 01/19/25 15:14 Height 5 ft 4 in Weight 177 lb 2 oz BMI 30.4 BP 136/84 Blood Pressure Location Rt brachial Position Sitting Pulse 87 Pulse Source Pulse Oximeter Temp 98.3 F Temp Source Oral Pulse Oximetry (%) 97 Oxygen Delivery Method Room Air Intake Visit Reasons: PE Allergies cat dander [cats] Allergy (Intermediate, Verified 01/19/25 15:15) Itchy Eyes and burning cigarette smoke Allergy (Intermediate, Verified 01/19/25 15:15) migraines latex Allergy (Intermediate, Verified 01/19/25 15:15) Rash trazodone Allergy (Intermediate, Verified 01/19/25 15:15) palpitations Penicillins Adverse Reaction (Intermediate, Verified 01/19/25 15:15) Abdominal Pain tamsulosin Allergy (Severe, Uncoded 01/19/25 15:15) Dizziness Medication List - Last Reconciled 01/19/25 by Gaudencio Ballard MD [Adult Sanitary Wipes 4 packs / month] albuterol sulfate 90 mcg/actuation 2 puffs inhalation Q6H PRN albuterol sulfate 2.5 mg (3 mL) inhalation QID PRN amitriptyline 10 mg PO BEDTIME disposable gloves (Disposable Latex-Free Gloves) Use As directed gabapentin 300 mg PO BEDTIME 90 days lorazepam mg PO DAILY magnesium 250 mg PO BID metoprolol succinate ER mg PO DAILY nebulizers with supplies and all needed equipment, to use for updraft treatments pantoprazole 40 mg PO BID [Poise incontinence pads Requires poise due to allergies. NS] prucalopride (Motegrity) 1 mg PO DAILY pyridoxine (vitamin B6) 100 mg PO DAILY [suction grab bars As directed] tacrolimus 0.03% topical DAILY tramadol 50 mg PO BID PRN 15 days turmeric mg PO [Updraft machine tubing As directed] venlafaxine ER 150 mg PO BEDTIME 90 days Tobacco use date assessed: 01/19/25 Dental Screening Dental Screen Date: 01/19/25 Did you have a dental visit in the last 12 months?: Yes Did you have a dental problem in the last 6 months where you did not have access to dental care?: No Was dental information given to patient?: Patient has dentist HPI PE HPI Details History - The patient is a 59 year old female pr esenting with a chronic cough. - The cough has persisted for three week s and began spontaneously without clearly identified inciting events. - The patient reports a progressive natu re to the cough with increasing severity. - Associated symptoms include shortness of breath that developed in conjunction with the cough. - The patient notes using an updraft mac ronnie, further management of asthma, last treatment was last night - The patient reported seeing a lung spe cialist previously at [facility] would like to transfer care to [facility] She does have asthma And had chest infection of human meta pneumo virus in November of this year needing hospitalization and IV steroid - The patient is currently under the car e of a transfer specialist. - The current severity and impact are si gnificant enough to warrant a request for additional treatments. Problem List - Chronic cough - Shortness of breath - Lung infection - required updraft in clinic - referral to new production support specialist paola bergman Patient Instructions - Receive treatment with Duoneb. - Obtain a chest x-ray. - Begin antibiotics and prednisone as di scussed. - Return for follow-up in two weeks. If worse go to emergency room Review of Systems - General: No fever no chills - Neurological: No headaches no dizziness - Ear nose throat: No sore throat no hearing difficulty no ear pain - Cardiovascular: No syncope, no chest pain, no palpitations - Gastrointestinal: No nausea vomiting or diarrhea - Endocrine: No polyuria polydipsia no heat intolerance - Genitourinary: No dysuria , no blood in urine Physical Exam General: Appears short of breath HEENT: No acute findings Neck: Supple Respiratory system: Short of breath, no audible wheeze coughing with deep breath improved after updraft machine treatment with DuoNeb Cardiovascular: S1-S2 regular in rate and rhythm Gastrointestinal: No pain Extremities: No new findings 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 Mother Asthma Dementia Alzheimer's disease Paternal Aunt Lung cancer Breast cancer, Onset Age: 62 Brother No problems noted. Brother No problems noted. Brother No problems noted. Sister No problems noted. Sister No problems noted. Sister No problems noted. Paternal Aunt Breast cancer, Onset Age: 70 Other Mental health disorder Social History Household Members: Significant Other and Children Household Members Other:: 2 children Housing: House Are you a primary housekeeper caregiver to a significant other at home: No Do you presently have visiting nurse or other home services: No Alcohol intake: never Patient Tobacco Use Status: Never used Tobacco e-Cigarette/Vaping Use: Never Used service: No Current occupational status: unemployed and disabled Cognitive needs: No Hearing needs: No Vision needs: Yes Female Reproductive History Menstrual Age of Menarche: 15 Questionnaire PHQ-9 Over the last 2 weeks, how often have you been bothered by any of the following problems? 1. Little interest or pleasure in doing things: not at all 2. Feeling down, depressed, or hopeless: not at all 3. Trouble falling or staying asleep, or sleeping too much: not at all 4. Feeling tired or having little energy: not at all 5. Poor appetite or overeating: not at all 6. Feeling bad about yourself - or that you are a failure or have let yourself or your family down: not at all 7. Trouble concentrating on things, such as reading the newspaper or watching television: not at all 8. Moving or speaking so slowly that other people could have noticed. Or the opposite - being so fidgety or restless that you have been moving around a lot more than usual: not at all 9. Thoughts that you would be better off or of hurting yourself in some way: not at all Total score: 0 Depression Screening Interpretation: Negative Depression Screening Done: Yes 09386 - PHQ-9 Billing: Yes Source: Developed by Drs. Gatito Agustin, Catina Hunter, Adrien Liao and colleagues, with an educational kori from [employer]. Thrive Questionnaire Date Thrive assessed: 01/19/25 I am a: Patient What is your living situation today?: I have a steady place to live Within the past 12 months, did the food you bought not last and you didn't have the money to get more?: Never true Within the past 12 months, did you worry whether your food would run out before you got money to buy more?: Never true Do you have trouble paying for medicines?: No Do you have trouble getting transportation to medical appointments?: No Do you have trouble paying your heating and electricity bill?: No Do you have trouble taking care of your child, family member or friend?: No Do you have trouble with day-to-day activities such as bathing, preparing meals, shopping, managing finances, etc.?: I choose not to answer this question Are you currently unemployed and looking for a job?: Yes Are you interested in more education?: No Please select the resources that you would like help with: None Currently or been in a relationship where the following occur: No concerns reported THRIVE Score: 0 AUDIT C Alcohol Use Questionnaire (AUDIT-C) 1. How often do you have a drink containing alcohol?: Never 3. How often do you have six or more drinks on one occasion?: Never Total Score: 0 Score Reviewed/Action Taken: Yes OLI-7 AMB Questionnaire OLI-7 Date OLI - 7 assessed: 01/19/25 Feeling nervous, anxious, or on edge: 0 = Not at all Not being able to stop or control worryin = Not at all Worrying too much about different things: 0 = Not at all Trouble relaxin = Not at all Being so restless that it is hard to sit still: 0 = Not at all Becoming easily annoyed or irritable: 0 = Not at all Feeling afraid as if something awful might happen: 0 = Not at all Total OLI-7 score (0-4 normal; 5-9 mild; 10-14 moderate; 15-21 severe): 0 Source: Developed by Drs. Gatito Agustin, Catina Hunter, Adrien Liao and colleagues, with an educational kori from [employer]. Physical exam (Primary Care) Vital Signs: Last Vital Signs Temp 98.3 F 01/19/25 15:14 Pulse 87 01/19/25 15:14 BP 136/84 01/19/25 15:14 Pulse Ox 97 01/19/25 15:14 Oxygen Delivery Method Room Air 01/19/25 15:14 BMI result Body Mass Index 30.4 Tobacco/Smoking Status: Tobacco use Status Tobacco use date assessed 01/19/25 01/19/25 15:16 Patient Tobacco Use Status Never used Tobacco 01/19/25 15:16 e-Cigarette/Vaping Use Never Used 01/19/25 15:16 PHQ-9: PHQ-9 Score PHQ-9: Total score 0 01/19/25 15:54 Depression Screening Interpretation: Negative Thrive Assessment: Date of Thrive Assessment Date Thrive assessed 01/19/25 01/19/25 15:16 Currently or been in a relationship where the following occur: No concerns reported Office Procedures Nebulizer Treatment Nebulizer Treatment 68522-Tmolyxckb/MDI RX initial, or Nebulizer Subsequent Treatment Office Meds ipratropium 0.5 mg-albuterol 3 mg (2.5 mg base)/3 mL nebulization soln Performing Provider: Gaudencio Ballard MD [place] [facility] Administered by: Latonya Martinez on 01/19/25 15:51 Dose Route Admin Location Dispensed Lot Number Expiration Date [facility] Adult Basic Education Manager 3 mL inhalation 3 mL [id number] 10/16/25 10312-723-66 P Coding Level of Care Code Est Pt Level 5 (59100) Diagnoses Shortness of breath R06.02 Infection of chest J22 Moderate asthma without complication, unspecified whether persistent J45.909 Asthma complication type: uncomplicated Asthma persistence: unspecified CPT Codes Nebulizer Treatment - Nebulizer Treatment, initial or subsequent: 93511- Nebulizer/MDI RX initial, or Nebulizer Subsequent Treatment ([id number]) Additional Codes PHQ-9 - 73880 - PHQ-9 Billing: Yes ([id number]) Time Spent (min) 40 Comment Updraft treatment, [id number], coordination of care Assessment & Plan Assessment & Plan (1) Shortness of breath: Code(s): R06.02 - Shortness of breath Category: Medical (2) Infection of chest: Code(s): J22 - Unspecified acute lower respiratory infection Category: Medical (3) Asthma, moderate: Code(s): J45.909 - Unspecified asthma, uncomplicated Category: Medical Qualifiers: Asthma complication type: uncomplicated Asthma persistence: unspecified Qualified Code(s): J45.909 - Unspecified asthma, uncomplicated Plan History - The patient is a 59 year old female presenting with a chronic cough. - The cough has persisted for three weeks and began spontaneously without clearly identified inciting events. - The patient reports a progressive nature to the cough with increasing severity. - Associated symptoms include shortness of breath that developed in conjunction with the cough. - The patient notes using an updraft machine, further management of asthma, last treatment was last night - The patient reported seeing a lung specialist previously at [facility] would like to transfer care to [facility] She does have asthma And had chest infection of human meta pneumo virus in November of this year needing hospitalization and IV steroid - The patient is currently under the care of a transfer specialist. - The current severity and impact are significant enough to warrant a request for additional treatments. Problem List - Chronic cough - Shortness of breath - Lung infection - required updraft in clinic - referral to new production support specialist placed Patient Instructions - Receive treatment with Duoneb. - Obtain a chest x-ray. - Begin antibiotics and prednisone as discussed. - Return for follow-up in two weeks. If worse go to emergency room Orders: Orders AMB Nebulizer Treatment Today R06.02 - Shortness of breath XR chest 2V Today J22 - Unspecified acute lower respiratory infection Referrals Pulmonology Referral J22 - Unspecified acute lower respiratory infection, J45.909 - Unspecified asthma, uncomplicated, R06.02 - Shortness of breath Medications: New prednisone PO once; 3 tabs for 2 days, then 2 tabs for 3 days, then 1 tab for 3 days, then half tab for 4 days 17 tabs 0RF 12 days azithromycin Take 2 tablets today then 1 daily 250 mg PO ONCE 6 tabs 0RF 5 days J06.9 - Acute upper respiratory infection, unspecified
--- OUTSIDE RECORDS SUMMARY | 2025-01-19 16:40 | XMS_ITS ---
Author Organization [facility] Address [address] [place] [address] Care Team Providers Care General Education Instructor Name Role Phone Elio MATHIS, [facility] Primary Care Provider UnavailArianna Estrella Unavailable [phone] Madison Cox Unavailable [phone] Medications Medication SIG (Take, Route, Frequency, Duration) [...] Active Encounters Encounter Location Date Provider Diagnosis [address] [address] 11/17/2024 Madison Cox Plan Of Treatment Next Appt Details Provider Name:Arianna ricketts, 01/22/2025 09:15:00 AM, [address] [facility], [address], [place], [address], Provider Name:Silvia glass, 03/22/2025 09:30:00 AM, [address] [place] [address], [phone], Progress Notes * Lasha MALIKeDOB:[birth year] (59 yo F)Acc No.[id number]:11/17/2024 Progress Notes Patient:?Janna MALIK Provider:?Madison Cox DPM :1965???Age:59 Y???Sex:Female D ate:11/17/2024 Address:[address] [place] [address], [phone] Pcp:Gaudencio Ballard MD Subjective: * Chief Complaints: [...] provider. Sign off status: Pending * Provider:?Madison oCx DPM Date:?2024 Generated for Sofi ayoub/Keren/eTgilasmitting on:?01/19/2025 04:40 PM EDT
== END 2025-01-19 15:57 | disposition home or self-care (01) ==
LOC: HO.HMCC 15:00
PROVIDERS: PCP Internal Medicine; Visit Provider Internal Medicine
DX: R06.02 Shortness of breath (principal); J22 Unspecified acute lower respiratory infection; J45.909 Unspecified asthma, uncomplicated

== ENCOUNTER → 2025-01-19 14:59 | Outpatient (BNVA) | payer OTHER, SELFPAY | PROVIDERS: PCP Internal Medicine; Visit Provider Internal Medicine | DX: R05.3 Chronic cough (principal); J45.909 Unspecified asthma, uncomplicated; J98.8 Other specified respiratory disorders | CPT/HCPCS: 94640; 96127; 99212 ==

== ENCOUNTER 2025-01-20 13:33 | Outpatient (REF) | payer OTHER, SELFPAY ==
--- NOTE | ~2025-01-20 | XR_ITS ---
EXAMINATION: XR CHEST CLINICAL INFORMATION: J22 - Unspecified acute lower respiratory infection COMPARISON: 11/09/2024. TECHNIQUE: 2 views of the chest were obtained. FINDINGS: The cardiac, hilar, and mediastinal contours are normal. The lungs are clear bilaterally. There is no pneumothorax or pleural effusion. There is no focal osseous or soft tissue abnormality. XR/XR chest 2V IMPRESSION: No active pulmonary disease. Electronically signed by: Tim Morris MD 01/21/2025 09:21 AM EDT
--- OUTSIDE RECORDS SUMMARY | 2025-01-20 13:45 | XMS_ITS | Encounter Summary ---
Author Organization [facility] Address [address] [place] [address] Care Team Providers Care Retail Warehouse Associate Name Role Phone Audrey Ramirez MD Primary Care Provider Un available Gaudencio Ballard MD Primary Care Provider Unavailabl e Reason for Visit * Reason Comments E-prescribe Rx Request Encounter Details Date Type Department Care Team Description 08/27/2017 Refill OBGYN - [place] [address] [place] [address] Isis Hawk MD [address] [place] [address] E-prescribe Rx Request Social History Tobacco Use [...] EST WHEN WAS THE PATIENTS LAST ANNUAL QA MANAGER EXAM? 01/02 Does patient have an upcoming [...] / Plan: [place] / Product Type: MEDICARE [id number] documented in this encounter Plan of Treatment Not on file documented as of this encounter Visit Diagnoses Not on filedocumented in this encounter Care Teams Retail Warehouse Associate Relationship Specialty Start Date End Date Audrey Ramirez MD PCP - General Internal Medicine 01/20/16 Gaudencio Ballard MD PCP - General Internal Medicine 09/16/19 documented as of this encounter
== END 2025-01-20 13:34 | disposition home or self-care (01) ==
LOC: HO.HMGCX 13:33
PROVIDERS: PCP Internal Medicine; Visit Provider Internal Medicine
DX: J22 Unspecified acute lower respiratory infection (principal)
CPT/HCPCS: 71046

== ENCOUNTER → 2025-01-20 13:36 | Outpatient (BNV) | payer OTHER, SELFPAY | PROVIDERS: PCP Internal Medicine; Visit Provider Radiology Diagnostic Radiology | DX: J22 Unspecified acute lower respiratory infection (principal) | CPT/HCPCS: 71046 ==

== ENCOUNTER 2025-02-05 12:51 | Outpatient (REF) | payer OTHER, SELFPAY ==
[2025-02-05 16:08] LABS: MANUAL DIFF FLAG NO
[2025-02-05 16:15] LABS: Basophils Absolute Auto 0.1 X10*3/uL (0.0-0.2); Basophils Percent Auto 1.4 % (0-2); Eosinophils Absolute Auto 0.2 X10*3/uL (0.0-0.4); Eosinophils Percent Auto 2.2 % (0-4); Hematocrit 42.8 % (37.0-47.0); Hemoglobin 13.8 g/dl (12.0-16.0); Imm Gran Abs Auto 0.01 X10*3/uL (0.00-0.03); Imm Gran Pct Auto 0.1 % (0.0-0.4); Lymphocytes Absolute Auto 2.3 X10*3/uL (1.2-4.9); Lymphocytes Percent Auto 32.8 % (20-40); Mean Corpuscular HGB Conc 32.2 g/dl (31.0-35.0); Mean Corpuscular Hemoglobin 29.7 pg (27.0-33.0); Mean Platelet Volume 11.2 fL (9.4-12.3); Monocytes Absolute Auto 0.8 X10*3/uL (0.1-1.2); Monocytes Percent Auto 10.6 % (2-11); Neutrophils Absolute Auto 3.8 x10*3/uL (2.0-8.3); Neutrophils Percent Auto 52.9 % (45-73); Platelet Count 405 X10*3/uL (160-400); Red Blood Count 4.65 X10*6/uL (4.20-5.50); White Blood Count 7.1 X10*3/uL (4.8-10.8)
[2025-02-05 16:21] LABS: Appearance Urine Clear; Color Urine Yellow; Glucose Urine UA Negative (Negative); Leukocyte Esterase Urine Trace (Negative); Nitrite Urine Negative (Negative); PH 6.5 (5.0-9.0); Specific Gravity - Urine 1.015 (1.005-1.025); UMIC TRIGGER UACC YES; Urine Blood Negative (Negative); Urine Ketones Trace mg/dL (Negative); Urine Protein Negative (Neg-Trace)
[2025-02-05 16:23] LABS: Alanine Aminotransferase 21 U/L (0-31); Albumin Level 4.2 g/dL (3.5-5.0); Alkaline Phosphatase 114 U/L (39-117); Anion Gap 11 (12-20); Aspartate Amino Transferase 29 U/L (5-31); Bilirubin Total 0.3 mg/dL (0.0-1.0); Blood Urea Nitrogen 13 mg/dL (9-16); Calcium 9.2 mg/dL (8.4-10.2); Carbon Dioxide 25 mmol/L (22-29); Chloride 107 mmol/L (96-108); Cholesterol 227 mg/dL (<200); Estimated Glomerular Filt Rate > 60; Glucose Fasting 85 mg/dL (60-99); HDL Cholesterol 66 mg/dL (>40); LDL Cholesterol Calculated 146 mg/dL (<100); Potassium 3.9 mmol/L (3.3-5.1); Sodium 139 mmol/L (135-145); Total Protein 7.1 g/dL (6.5-8.0); Triglycerides 79 mg/dL (<150)
[2025-02-05 16:36] LABS: Estimated Average Glucose 114 mg/dL; Hemoglobin A1c % 5.6 % (<6.0); Total Hemoglobin (HGBA1C) 3634.2327 umol/L
[2025-02-05 16:49] LABS: Bacteria Urine None Seen (None Seen); Hyaline Casts Urine 0-2 /LPF (0-2); RBC Urine 0-2 /HPF (0-2); Squamous Epithelial Cell Urine 0-2 /HPF (0-2); WBC Urine 0-5 /HPF (0-5)
== END 2025-02-05 12:52 | disposition home or self-care (01) ==
LOC: HO.HMGCLDS 12:51
PROVIDERS: PCP Internal Medicine; Visit Provider Internal Medicine
DX: M53.3 Sacrococcygeal disorders, not elsewhere classified (principal); G89.4 Chronic pain syndrome; M54.16 Radiculopathy, lumbar region; J45.909 Unspecified asthma, uncomplicated; M79.7 Fibromyalgia; E66.811 Obesity, class 1; E66.09 Other obesity due to excess calories; Z68.31 Body mass index [BMI] 31.0-31.9, adult; R73.03 Prediabetes; F41.1 Generalized anxiety disorder; F33.41 Major depressive disorder, recurrent, in partial remission; R23.2 Flushing; R30.0 Dysuria
CPT/HCPCS: 36415; 80053; 80061; 81001; 83036; 85025; 99212

== ENCOUNTER 2025-02-05 12:51 | Outpatient (AMB) | payer OTHER, SELFPAY ==
--- OUTSIDE RECORDS SUMMARY | 2024-11-17 09:45 | XMS_ITS ---
Author Organization [facility] Address [address] [place] [address] Care Team Providers Care Vehicle Assembler Name Role Phone Elio MATHIS, [facility] Primary Care Provider UnavailArianna Estrella Unavailable [phone] Madison Cox Unavailable [phone] Medications Medication SIG (Take, Route, Frequency, Duration) [...] Active Encounters Encounter Location Date Provider Diagnosis [address] [address] 11/17/2024 Madison Cox Plan Of Treatment Next Appt Details Provider Name:Arianna ricketts, 03/05/2025 12:30:00 PM, [address] [facility], [address] [facility], [place], [address], Progress Notes * Danyel MALIKOB:[birth year] (59 yo F)Acc No.[id number]:11/17/2024 Progress Notes Patient: Gayle KWANJanna CORONEL Provider: Cesar Cox DPM :1965 A ge:59 Y S ex:Female Date:11/17/2024 Address:[address] [place] [address] [place], [id number]-[id number] Pcp:Gaudencio Ballard MD Subjective: * Chief Complaints: [...] Date: 11/17/2024 Generated for Sofi ayoub/Keren/Rhea on: 02/05/2025 12:55 PM EDT
--- NOTE | 2025-02-05 12:54 | MHC.PC.OV ---
Vital Signs 02/05/25 12:57 Height 5 ft 4 in Weight 175 lb BMI 30.0 BP 104/78 Blood Pressure Location Rt brachial Position Sitting Respiration 16 Pulse 75 Pulse Source Pulse Oximeter Temp 98.2 F Temp Source Oral Pulse Oximetry (%) 97 Oxygen Delivery Method Room Air Intake Visit Reasons: 2 weeks f/u Allergies cat dander (cats) Allergy (Intermediate, Verified 02/05/25 12:55) Itchy Eyes and burning cigarette smoke Allergy (Intermediate, Verified 02/05/25 12:55) migraines latex Allergy (Intermediate, Verified 02/05/25 12:55) Rash trazodone Allergy (Intermediate, Verified 02/05/25 12:55) palpitations Penicillins Adverse Reaction (Intermediate, Verified 02/05/25 12:55) Abdominal Pain tamsulosin Allergy (Severe, Uncoded 02/05/25 12:55) Dizziness Medication List - Last Reconciled 02/05/25 by Gaudencio Ballard MD [Adult Sanitary Wipes 4 packs / month] albuterol sulfate 90 mcg/actuation 2 puffs inhalation Q6H PRN albuterol sulfate 2.5 mg (3 mL) inhalation QID PRN amitriptyline 10 mg PO BEDTIME disposable gloves (Disposable Latex-Free Gloves) Use As directed gabapentin 300 mg PO BEDTIME 90 days lorazepam mg PO DAILY magnesium 250 mg PO BID metoprolol succinate ER mg PO DAILY nebulizers with supplies and all needed equipment, to use for updraft treatments pantoprazole 40 mg PO BID [Poise incontinence pads Requires poise due to allergies. NS] pyridoxine (vitamin B6) 100 mg PO DAILY [suction grab bars As directed] tacrolimus 0.03% topical DAILY tramadol 50 mg PO BID PRN 15 days turmeric mg PO [Updraft machine tubing As directed] venlafaxine ER 150 mg PO BEDTIME 90 days Tobacco use date assessed: 01/19/25 Dental Screening Dental Screen Date: 02/05/25 Did you have a dental visit in the last 12 months?: Yes Did you have a dental problem in the last 6 months where you did not have access to dental care?: No Was dental information given to patient?: Patient has dentist HPI 2 weeks f/u HPI Details History - The patient is a 59-year-old female presenting with sore throat and ear pain. Patient was treated with prednisone when she was seen 2 weeks ago with respiratory symptoms and shortness a breath She is doing much better now She has pulmonary appointment set up already - The patient has a history of menopausal symptoms, including persistent hot flashes that disrupt sleep despite taking gabapentin. She is taking gabapentin for fibromyalgia - The patient has a history of diabetes and is exploring weight loss options to manage it better. - She has been advised to continue vitamin D supplementation despite previous normal levels - The patient has a history of kidney stones and a cyst, which are currently asymptomatic. Medications - Amitriptyline at night for headaches - Vitamin D supplement - Gabapentin 300 mg at night for fibromyalgia - Metoprolol for palpitations - Pantoprazole for chronic gastroesophageal reflux disease (GERD) - Venlafaxine for anxiety Problem List - Sore throat - Menopausal symptoms - Vitamin D deficiency - Diabetes - Kidney stones - Cyst - anxiety - fibromyalgia - obesity Diagnostic results - Labs: Previous fasting blood sugar was high; vitamin D level was 49, within normal range. Patient Instructions - Gargle with warm salt water to alleviate throat inflammation. - Continue taking vitamin D supplements as advised. - Schedule an appointment with OBGYN to discuss hormonal therapy for menopausal symptoms. - Monitor blood sugar levels and continue weight management efforts. - continue medications as prescribed Review of Systems General: No fever no chills neurological: No headaches no dizziness ear nose throat: no hearing difficulty no ear pain cardiovascular: No syncope, no chest pain, no palpitations gastrointestinal: No nausea vomiting or diarrhea endocrine: No polyuria polydipsia no heat intolerance genitourinary: No dysuria skin: No new complaints Physical Exam general: No acute distress HEENT: Mild throat erythema uvula midline, both ears within normal limit neck: Supple, no lymphadenopathy respiratory system: Able to talk in full sentences, no audible wheeze, no stridor cardiovascular: S1-S2 RRR gastrointestinal: No pain extremities: No new findings NATIONAL GUARD MEMBER: Alert awake oriented x3 motor sensory intact skin: Normal turgor PFSH Medical History Kidney stones Kidney stones, calcium oxalate Perioral dermatitis Muscle spasm Microscopic hematuria Hot flashes Vitamin D deficiency Fibromyalgia Osteoarthritis Chronic GERD Depression, major, recurrent Surgical History Hx of appendectomy History of esophagogastroduodenoscopy (EGD) H/O colonoscopy History of hysterectomy History of surgery Family History Father No problems noted. Mother Asthma Dementia Alzheimer's disease Paternal Aunt Lung cancer Breast cancer, Onset Age: 62 Brother No problems noted. Brother No problems noted. Brother No problems noted. Sister No problems noted. Sister No problems noted. Sister No problems noted. Paternal Aunt Breast cancer, Onset Age: 70 Other Mental health disorder Social History Household Members: Significant Other and Children Household Members Other:: 2 children Housing: House Are you a primary team primary care physician to a significant other at home: No Do you presently have visiting nurse or other home services: No Alcohol intake: never Patient Tobacco Use Status: Never used Tobacco e-Cigarette/Vaping Use: Never Used service: No Current occupational status: unemployed and disabled Cognitive needs: No Hearing needs: No Vision needs: Yes Female Reproductive History Menstrual Age of Menarche: 15 Questionnaire Thrive Questionnaire Date Thrive assessed: 10/27/24 I am a: Patient What is your living situation today?: I have a steady place to live Within the past 12 months, did the food you bought not last and you didn't have the money to get more?: Never true Within the past 12 months, did you worry whether your food would run out before you got money to buy more?: Never true Do you have trouble paying for medicines?: No Do you have trouble getting transportation to medical appointments?: No Do you have trouble paying your heating and electricity bill?: No Do you have trouble taking care of your child, family member or friend?: No Do you have trouble with day-to-day activities such as bathing, preparing meals, shopping, managing finances, etc.?: I choose not to answer this question Are you currently unemployed and looking for a job?: Yes Are you interested in more education?: No Please select the resources that you would like help with: None Currently or been in a relationship where the following occur: No concerns reported THRIVE Score: 0 OLI-7 AMB Questionnaire OLI-7 Date OLI - 7 assessed: 01/19/25 Source: Developed by Drs. Gatito Agustin, Catina Hunter, Adrien Liao and colleagues, with an educational kori from [employer]. Physical exam (Primary Care) Vital Signs: Last Vital Signs Temp 98.2 F 02/05/25 12:57 Pulse 75 02/05/25 12:57 Resp 16 02/05/25 12:57 BP 104/78 02/05/25 12:57 Pulse Ox 97 02/05/25 12:57 Oxygen Delivery Method Room Air 02/05/25 12:57 BMI result Body Mass Index 30.0 Tobacco/Smoking Status: Tobacco use Status Tobacco use date assessed 01/19/25 02/05/25 12:57 Patient Tobacco Use Status Never used Tobacco 02/05/25 12:57 e-Cigarette/Vaping Use Never Used 02/05/25 12:57 Thrive Assessment: Date of Thrive Assessment Date Thrive assessed 10/27/24 02/05/25 12:57 Currently or been in a relationship where the following occur: No concerns reported Coding Level of Care Code Est Pt Level 4 (31300) Complex EM visit Add On G2211 Diagnoses Moderate asthma without complication, unspecified whether persistent J45.909 Asthma persistence: unspecified Asthma complication type: uncomplicated Fibromyalgia M79.7 Class 1 obesity due to excess calories with serious comorbidity and body mass index (BMI) of 31.0 to 31.9 in adult E66.811; E66.09; Z68.31 Obesity classification: adult class 1 (BMI 30 - 34.9) Serious obesity comorbidity presence: with serious comorbidity Body mass index: BMI 31.0-31.9 Pre-diabetes R73.03 Anxiety, generalized F41.1 Recurrent major depressive disorder, in partial remission F33.41 Active/Remission status: in partial remission Hot flashes R23.2 Dysuria R30.0 Assessment & Plan Assessment & Plan (1) Asthma, moderate: Code(s): J45.909 - Unspecified asthma, uncomplicated Category: Medical Qualifiers: Asthma persistence: unspecified Asthma complication type: uncomplicated Qualified Code(s): J45.909 - Unspecified asthma, uncomplicated (2) Fibromyalgia: Code(s): M79.7 - Fibromyalgia Category: Medical (3) Obesity due to excess calories: Code(s): E66.09 - Other obesity due to excess calories Category: Medical Qualifiers: Obesity classification: adult class 1 (BMI 30 - 34.9) Serious obesity comorbidity presence: with serious comorbidity Body mass index: BMI 31.0-31.9 Qualified Code(s): E66.811 - Obesity, class 1; E66.09 - Other obesity due to excess calories; Z68.31 - Body mass index [BMI] 31.0-31.9, adult (4) Pre-diabetes: Code(s): R73.03 - Prediabetes Category: Medical (5) Anxiety, generalized: Code(s): F41.1 - Generalized anxiety disorder Category: Medical (6) Depression, major, recurrent: Code(s): F33.9 - Major depressive disorder, recurrent, unspecified Category: Medical Qualifiers: Active/Remission status: in partial remission Qualified Code(s): F33.41 - Major depressive disorder, recurrent, in partial remission (7) Hot flashes: Code(s): R23.2 - Flushing Category: Medical (8) Dysuria: Code(s): R30.0 - Dysuria Category: Medical Plan History - The patient is a 59-year-old female presenting with sore throat and ear pain. Patient was treated with prednisone when she was seen 2 weeks ago with respiratory symptoms and shortness a breath She is doing much better now She has pulmonary appointment set up already - The patient has a history of menopausal symptoms, including persistent hot flashes that disrupt sleep despite taking gabapentin. She is taking gabapentin for fibromyalgia - The patient has a history of diabetes and is exploring weight loss options to manage it better. - She has been advised to continue vitamin D supplementation despite previous normal levels - The patient has a history of kidney stones and a cyst, which are currently asymptomatic. Experiencing mild urine irritation and is requesting a urinalysis Medications - Amitriptyline at night for headaches - Vitamin D supplement - Gabapentin 300 mg at night for fibromyalgia - Metoprolol for palpitations - Pantoprazole for chronic gastroesophageal reflux disease (GERD) - Venlafaxine for anxiety Problem List - Sore throat - Menopausal symptoms - Vitamin D deficiency - Diabetes - Kidney stones - Cyst - anxiety - fibromyalgia - obesity Diagnostic results - Labs: Previous fasting blood sugar was high; vitamin D level was 49, within normal range. Patient Instructions - Gargle with warm salt water to alleviate throat inflammation. - Continue taking vitamin D supplements as advised. - Schedule an appointment with OBGYN to discuss hormonal therapy for menopausal symptoms. - Monitor blood sugar levels and continue weight management efforts. - continue medications as prescribed Orders: Orders UA CC w/rflx Micro + Cult Today R30.0 - Dysuria Medications: New cholecalciferol (vitamin D3) 25 mcg PO DAILY 90 caps 1RF 90 days
[2025-02-05 12:57] VITALS: BP 104/78; PULSE 75; RESP 16; TEMP 36.8; O2SAT 97
== END 2025-02-05 13:18 | disposition home or self-care (01) ==
LOC: HO.HMCC 12:52
PROVIDERS: PCP Internal Medicine; Visit Provider Internal Medicine
DX: J45.909 Unspecified asthma, uncomplicated (principal); M79.7 Fibromyalgia; E66.811 Obesity, class 1; E66.09 Other obesity due to excess calories; Z68.31 Body mass index [BMI] 31.0-31.9, adult; R73.03 Prediabetes; F41.1 Generalized anxiety disorder; F33.41 Major depressive disorder, recurrent, in partial remission; R23.2 Flushing; R30.0 Dysuria

== ENCOUNTER 2025-02-10 09:32 | Outpatient (AMB) | payer OTHER, SELFPAY ==
--- OUTSIDE RECORDS SUMMARY | 2024-11-17 09:45 | XMS_ITS ---
Author Organization [facility] Address [address] [place] [address] Care Team Providers Care Frame Stripper Name Role Phone Elio MATHIS, [facility] Primary Care Provider UnavailArianna Estrella Unavailable [phone] Madison Cox Unavailable [phone] Medications Medication SIG (Take, Route, Frequency, Duration) Notes Start Date End Date Status Physical Therapy . . . 2-3x/week for 3- 4 weeks Not-Taking Gabapentin 300 MG 1 capsule Orally Onc e a day for 30 day(s) Active Prilosec Active Diclofenac Sodium 75 MG 1 tablet with fo od Orally Twice a day for 30 days 11/05/2024 Active Encounters Encounter Location Date Provider Diagnosis [address] [address] 11/17/2024 Madison Cox Plan Of Treatment Next Appt Details Provider Name:Arianna ricketts, 03/05/2025 12:30:00 PM, [address] [facility], [address] [facility], [place], [address], Progress Notes * Danyel MALIKOB:[birth year] (59 yo F)Acc No.[id number]:11/17/2024 Progress Notes Patient: Gayle KWANJanna CORONEL Provider: Cesar Cox DPM :1965 A ge:59 Y S ex:Female Date:11/17/2024 Address:[address] [place] [address] [place], [id number] Pcp:Gaudencio Ballard MD Subjective: * Chief Complaints: [...] Date: 11/17/2024 Generated for Sofi ayoub/Keren/Rhea on: 02/10/2025 10:37 AM EDT
--- NOTE | 2025-02-10 10:46 | A.OFFVIS_ITS ---
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 [facility] Allergies cat dander (cats) Allergy (Intermediate, Verified 02/10/25 10:46) Itchy Eyes and burning cigarette smoke Allergy (Intermediate, Verified 02/10/25 10:46) migraines latex Allergy (Intermediate, Verified 02/10/25 10:46) Rash trazodone Allergy (Intermediate, Verified 02/10/25 10:46) palpitations Penicillins Adverse Reaction (Intermediate, Verified 02/10/25 10:46) Abdominal Pain tamsulosin Allergy (Severe, Uncoded 02/10/25 10:46) Dizziness Medication List - Last Reconciled 02/10/25 by Corey Brooks MD [Adult Sanitary Wipes 4 packs / month] albuterol sulfate 90 mcg/actuation 2 puffs inhalation Q6H PRN albuterol sulfate 2.5 mg (3 mL) inhalation QID PRN amitriptyline 10 mg PO BEDTIME cholecalciferol (vitamin D3) 25 mcg PO DAILY 90 days disposable gloves (Disposable Latex-Free Gloves) Use As directed gabapentin 300 mg PO BEDTIME 90 days lorazepam mg PO DAILY magnesium 250 mg PO BID metoprolol succinate ER mg PO DAILY nebulizers with supplies and all needed equipment, to use for updraft treatments pantoprazole 40 mg PO BID [Poise incontinence pads Requires poise due to allergies. 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 [facility]: Details: Start time: 10.42am, End time: 11.24am ?I spent 37 minutes speaking with the patient on the phone plus an additional 5 minutes reviewing and updating records for a total of 42 minutes HPI Comments Details: Previous weight loss efforts: self diet and exercise Wakes up: 9am, Sleeps: 11pm Breakfast: skips Lunch: 1-2pm (scrambled eggs, cottage cheese, nickerson) Dinner: 4pm (potatoes, chicken, vegetables) Snacks: 3pm (Cheese stick with crackers), 7pm (cereal) Exercise: has a home treadmill and bike that track calories and incline Beverages: Coffee: rarely, Tea: (2 cup/d with honey), soda: none, juice: none, ETOH: none PFSH Medical History (Updated 02/10/25 @ 11:17 by Corey Brooks MD) BMI 32.0-32.9,adult Obesity Kidney stones Kidney stones, calcium oxalate Perioral dermatitis Muscle spasm Microscopic hematuria Hot flashes Vitamin D deficiency Fibromyalgia Osteoarthritis Chronic GERD Depression, major, recurrent Surgical History Hx of appendectomy History of esophagogastroduodenoscopy (EGD) H/O colonoscopy History of hysterectomy History of surgery Family History Father No problems noted. Mother Asthma Dementia Alzheimer's disease Paternal Aunt Lung cancer Breast cancer, Onset Age: 62 Brother No problems noted. Brother No problems noted. Brother No problems noted. Sister No problems noted. Sister No problems noted. Sister No problems noted. Paternal Aunt Breast cancer, Onset Age: 70 Other Mental health disorder Social History Household Members: Significant Other and Children Household Members Other:: 2 children Housing: House Are you a primary career information specialist to a significant other at home: No Do you presently have visiting nurse or other home services: No Alcohol intake: never Patient Tobacco Use Status: Never used Tobacco e-Cigarette/Vaping Use: Never Used service: No Current occupational status: unemployed and disabled Cognitive needs: No Hearing needs: No Vision needs: Yes Female Reproductive History Menstrual Age of Menarche: 15 Telehealth Telehealth Telehealth Platform: Telephone Location of provider rendering services: practice address Location of patient: address on file Patient Identification confirmed using: Name, : Yes Telehealth method: voice only Patient verbally consented to treatment: Yes Patient verbally consented to billing insurance company: Yes Patient informed of any privacy concerns related to visit: Yes Minutes spent on Phone/Video with Pt.: 42 Assessment & Plan Assessment & Plan (1) Obesity: Code(s): E66.9 - Obesity, unspecified Category: Medical Qualifiers: Obesity type: due to excess calories Obesity classification: adult class 1 (BMI 30 - 34.9) Serious obesity comorbidity presence: with serious comorbidity Body mass index: BMI 30.0-30.9 Qualified Code(s): E66.811 - Obesity, class 1; E66.09 - Other obesity due to excess calories; Z68.30 - Body mass index [BMI] 30.0-30.9, adult Plan: 1.? Nutritional counseling. Start with one premade Premier (buy at [employer] or [employer]) shake (mix 4oz of Premier shake with 4oz low fat coconut milk each) at 10am-12pm, one protein bar (Fit Crunch protein bar, buy at [employer],? [employer], [facility], or [employer]) at 1pm-3pm, another premade Premier (buy at [employer] or [employer]) shake (mix 4oz of Premier shake with 4oz low fat coconut milk each) at 4pm-6pm, dinner at 7pm (8 forks of protein and 8 forks of salad/vegetables) and one more Fit Crunch protein bar after dinner at 9pm-11pm. So you do 2 protein shakes, 2 protein bars and one meal per day. Meal to include lean meat (beef, fish, pork, turkey, chicken), or indonesian yogurt, or egg whites, or beans with a salad with olive oil and fruits (berries, pears, apples, kiwi). Avoid salt, breads, potatoes, rice, pasta, desserts. 3. Each shake would be drunk slowly, like coffee in a period of 2 hours. 4. Cut each bar in 4 pieces and eat each piece in 30min ?to make each bar last 2 hours. 5. I emphasized the importance of measuring accurately the food portion and measure it when serving the food in plate 6. The meal portions include 8 full-size forks of meat and 8 full-size forks of salad. You always eat the meat portion but you can replace up to 4 forks for salad/vegetables with rice, potatoes or pasta, or a fruit ?if you like. The less you do it the better weight loss will be. 7. One full-size fork is what it can be scooped on the fork without falling aside and not what can be bit with the fork. Use regular forks like those you find in a typical restaurant. 8.? Please use your body composition scale we discussed and send me weight measurements as soon as possible and then once a week. Always include your diet and exercise plan. 9. Start treadmill with an incline of 2.0 and speed of 2.5mph. Increase incline by 1 every 3 min to a max incline of 8.0, stay 3min at 8.0 and then return to 2.0 and repeat same steps until calorie goal is met. Goal is to burn 2000 calories per week on exercise, which means either 300 calories daily. 10. Alternatively start stationary bike at a resistance level of 0.0 Increase level by 1.0 every 3 min to a max level of 6.0. Stay at this level for 3 min and then return to level 0.0 and repeat same steps until 300 calories are burned. Velocity target is 12mph and heart rate is 145 bpm. Goal is to burn 2000 calories per week on exercise 11. Goal to lose at least 10% of your weight, which is about 17bs. Minimum weight goal: 157lbs 12. Please follow the diet plan exactly without any change. If you don't like something about the plan or you feel hungry you need to communicate with me so I can help you revise the plan. You should not change the plan yourself
== END 2025-02-10 11:25 | disposition home or self-care (01) ==
LOC: HO.HBS 09:32
PROVIDERS: PCP Internal Medicine; Visit Provider Surgery
DX: E66.811 Obesity, class 1 (principal); E66.09 Other obesity due to excess calories; Z68.30 Body mass index [BMI] 30.0-30.9, adult
CPT/HCPCS: 99203

== ENCOUNTER 2025-03-30 14:36 | Outpatient (AMB) | payer OTHER, SELFPAY ==
--- NOTE | 2025-03-30 14:48 | MHC.OFFVIS ---
Vital Signs 03/30/25 14:49 Height 5 ft 4 in Weight 174 lb 2.643 oz BMI 29.9 BP 110/68 Blood Pressure Location Lt brachial Position Sitting Pulse 87 Pulse Source Pulse Oximeter Pulse Oximetry (%) 97 Oxygen Delivery Method Room Air Intake Visit Reasons: Shortness of breath Health Assessment And Treatment Teacher Required: No Accompanied by: Self / Same As Patient Allergies cat dander (cats) Allergy (Intermediate, Verified 03/30/25 14:51) Itchy Eyes and burning cigarette smoke Allergy (Intermediate, Verified 03/30/25 14:51) migraines latex Allergy (Intermediate, Verified 03/30/25 14:51) Rash trazodone Allergy (Intermediate, Verified 03/30/25 14:51) palpitations Penicillins Adverse Reaction (Intermediate, Verified 03/30/25 14:51) Abdominal Pain tamsulosin Allergy (Severe, Uncoded 02/10/25 10:46) Dizziness HPI Comments Details: 03/30/2025 the patient is here for a pulmonary follow-up visit. The patient is a 59 year woman with a known history of asthma who apparently was in her usual state health until back in October when she started developing worsening respiratory symptoms. She went to an urgent care and she was treated initially for URI. However, her symptoms continued to worsen with significant respiratory distress and she went to [facility] [place]. While at [facility] she did have a blood gas demonstrating a mixed acute respiratory alkalosis along with acute metabolic acidosis. She was in respiratory distress and they were contemplating having to intubate the patient. She was admitted to the ICU. Her respiratory viral panel did come back positive for human metapneumovirus. I did personally reviewed the x-ray demonstrating reticular nodular opacity suggesting of some degree of pneumonitis. Ultimately she went to her primary care doctor 2 months later and she was still having some difficulty with her breathing. At this point the patient is doing better. She gets sick in the fall and winter though. She is concerned now with her severe bout. She does have grandkids and she had a sick contact before getting sick from the grandkids. The patient needs to get her pneumonia vaccine updated. Will follow-up with PFTs and a chest x-ray sometime in the fall. If she has any issues prior to this she will call for an earlier assessment. [facility] Medical History (Updated 03/30/25 @ 23:05 by Vin Lucas MD) Abnormal chest x-ray Asthma BMI 32.0-32.9,adult Obesity Kidney stones Kidney stones, calcium oxalate Perioral dermatitis Muscle spasm Microscopic hematuria Hot flashes Vitamin D deficiency Fibromyalgia Osteoarthritis Chronic GERD Depression, major, recurrent Surgical History Hx of appendectomy History of esophagogastroduodenoscopy (EGD) H/O colonoscopy History of hysterectomy History of surgery Family History Father No problems noted. Mother Asthma Dementia Alzheimer's disease Paternal Aunt Lung cancer Breast cancer, Onset Age: 62 Brother No problems noted. Brother No problems noted. Brother No problems noted. Sister No problems noted. Sister No problems noted. Sister No problems noted. Paternal Aunt Breast cancer, Onset Age: 70 Other Mental health disorder Social History Household Members: Significant Other and Children Household Members Other:: 2 children Housing: House Are you a primary day care worker to a significant other at home: No Do you presently have visiting nurse or other home services: No Alcohol intake: never Patient Tobacco Use Status: Never used Tobacco e-Cigarette/Vaping Use: Never Used service: No Current occupational status: unemployed and disabled Cognitive needs: No Hearing needs: No Vision needs: Yes Female Reproductive History Menstrual Age of Menarche: 15 Review of Systems Const Denies chills and Denies fever(s) ENT Denies epistaxis and Denies nasal discharge Card Denies chest pain Resp Denies chest congestion, Denies cough and Denies hemoptysis GI Reports no additional complaints, Denies diarrhea and Denies nausea Musc Reports no additional complaints Skin/Breast Denies rash Neuro Reports no additional complaints Psych Reports no additional complaints Endo Reports no additional complaints Physical Exam Vital Signs: Last Vital Signs Pulse 87 03/30/25 14:49 BP 110/68 03/30/25 14:49 Pulse Ox 97 03/30/25 14:49 Oxygen Delivery Method Room Air 03/30/25 14:49 BMI result Body Mass Index 29.9 Const General: comfortable and no acute distress HEENT Head: Yes normocephalic Ears: external ears normal Face and sinus: Yes sinuses nontender Neck Neck: Yes supple Chest Chest palpation & inspection: normal inspection of the chest Resp Effort & Inspection: normal respiratory effort Auscultation: clear to auscultation bilaterally Cardio Rate: regular rate Heart sounds: S1 normal heart sound present and S2 normal heart sound present GI Palpation (GI): Soft to palpation Skin General skin exam: no rashes or lesions noted Neuro General: gait normal and moves all extremities Extrem General: Yes no clubbing, cyanosis or edema Psych Speech and movement: Normal speech and movement present Assessment & Plan Assessment & Plan (1) Asthma: Code(s): J45.909 - Unspecified asthma, uncomplicated Category: Medical Qualifiers: Asthma severity: mild Asthma persistence: intermittent Asthma complication type: uncomplicated Qualified Code(s): J45.20 - Mild intermittent asthma, uncomplicated (2) Abnormal chest x-ray: Code(s): R93.89 - Abnormal findings on diagnostic imaging of other specified body structures Category: Medical (3) Human metapneumovirus (hMPV) pneumonia: Code(s): J12.3 - Human metapneumovirus pneumonia Category: Medical Plan EDUARDO as needed Has a nebulizer Holding maintenance inhaler PFTs CXR F/U 3-4 months Orders: Orders XR chest 2V Today J45.20 - Mild intermittent asthma, uncomplicated PFT pulmonary function test Today J45.20 - Mild intermittent asthma, uncomplicated Coding Level of Care Code New Pt Level 4 (26185) Diagnoses Mild intermittent asthma without complication J45.20 Asthma severity: mild Asthma persistence: intermittent Asthma complication type: uncomplicated Abnormal chest x-ray R93.89 Human metapneumovirus (hMPV) pneumonia J12.3 Time Spent (min) 40
[2025-03-30 14:49] VITALS: BP 110/68; PULSE 87; O2SAT 97; BMI 29.9
--- OUTSIDE RECORDS SUMMARY | 2025-03-30 15:31 | XMS_ITS | Clinical Summary ---
Author Organization [facility] Address [address] [place] [address] Phone Care Team Providers Care Pan Washer Name Role Phone Gaudencio Ballard MD Primary Care Provider [phone] Allergies Active Allergy Reactions Criticality Noted Date [...] Surgery Date Site/Laterality Comments ESOPHAGOGASTRODUODENOSCOPY 01/21/07 PROCEDURE: MA ESOPHAGOGASTRODUODENOSCOPY TRANSORAL DIAGNOSTIC; COMMENT: Normal PARTIAL HYSTERECTOMY 03/2010 PROCEDURE: MA SUPRACERVICAL ABDL HYSTER W/WO RMVL TUBE OVARY; COMMENT: Da Dragan TLH with sacropexy, mesh urethral support OTHER SURGICAL HISTORY PROCEDURE: FEMALE SLING SYS W/WO MATRL OTHER SURGICAL HISTORY PROCEDURE: MA RMVL PROSTC MATRL/MESH ABDL WALL FOR INFECTION BREAST SURGERY 2011 Right PROCEDURE: MA UNLISTED PROCEDURE BREAST; COMMENT: rt cyst removed [...] series) 1986 Zoster Vaccines (1 of 2) 1986 Pneumococcal Vaccine: 50+ Years (3 of 3 - PCV20 or PCV21) 08/20/2021 08/20/2016, 04/17/2016 Breast Cancer Screening 09/16/2021 09/16/19 20, 09/12/2018, 09/11/2017 Colorectal Cancer Screening: Colonoscopy 07/22/2022 HIV Screening 07/22/2022 Medicare Annual Wellness Visit 07/22/2022 Social Influencers of Health Screening 07/22/2022 Depression Screening 08/19/2024 Influenza Vaccine (#1) 2025 DTaP,Tdap,and Td Vaccines (5 - Td [...] reviewed with CAD and compared to previous. The breasts are composed of fatty and fibroglandular tissue. No suspicious mass, architectural distortion or suspicious calcifications [...] Most Recently Relevant to Health Maintenance Insurance [employer] MEDICARE Member Subscriber Plan / Payer (Ef fective 2018-Present) Name:ALOK HOOPER Relation to Subscriber:Self Name:Alok Hooper Payer ID:[id number] Group ID:[id number] Type:Not on file Address: [address] [place] [address] Care Teams Pan Washer Relationship Specialty Start Date End Date Gaudencio Ballard MD [address] [place] [phone] PCP - General Internal Medicine 09/16/19
--- OUTSIDE RECORDS SUMMARY | 2025-03-30 15:31 | XMS_ITS | Clinical Summary ---
Author Organization [facility] Address [address] [place] [address] Care Team Providers Care Roller Skate Assembler Name Role Phone Margie Pham MD Primary Care Provider [phone] Allergies Active Allergy Reactions Criticality Noted Date [...] 69 01/14/2019 3:51 PM EDT Temperature 36.9 C (98.5 F) 01/14/2019 3:51 PM EDT Respiratory Rate 16 05/22/2018 4:29 PM EDT [...] of 2) 2017 BMI Counseling 01/15/2020 01/14/2019, 05/02/2019, 11/20/2018, Additional history exists Depression Screening 01/15/2020 01/14/2019 Preventative Health Evaluation 01/15/2020 01/14/2019, 01/14/2019 Breast Cancer Screening (Mammogram) 09/02/2020 09/02/2018 (Pt Reported - Need documentation) Cervical Cancer Screening (Pap Smear) 11/20/2021 11/20/2018 (Pt Reported - Need documentation) DTap / Tdap / Td (2 - Td or Tdap) 06/26/2022 06/26/2012, 08/27/2003 Influenza Vaccine (#1) 2025 Pneumococcal Vaccine Aged Out 04/17/2016 No long er eligible based on patient's age to complete this topic RSV Ped < 20 months Aged Out No longe r eligible based on patient's age to complete this topic Care Teams Roller Skate Assembler Relationship Specialty Start Date End Date Margie Pham MD PCP - General Internal Medicine 10/25/17
--- OUTSIDE RECORDS SUMMARY | 2025-03-30 15:31 | XMS_ITS | Referral Summary ---
Author Organization [facility] Address [address] [place] [address] Care Team Providers Care Worm Farm Laborer Name Role Phone Margie Pham MD Primary Care Provider [phone] Allergies Active Allergy Reactions Criticality Noted Date [...] 74 10/22/2018 8:50 AM EST Temperature 36.4 C (97.6 F) 11/23/2020 4:07 PM EDT Respiratory Rate 18 10/22/2018 8:50 AM EST Oxygen Saturation 100% 10/22/2018 8:50 AM EST Inhaled Oxygen Concentration - - Weight 68.9 kg (152 lb) 11/23/2020 4:07 PM EDT Height 160 cm (5' 3 ) 10/20/2018 6:53 PM EST Body Mass Index 26.93 10/20/2018 6:53 PM EST Plan of Treatment Not on file Medical Devices Implanted Type Area Canoe Builder Device Identifier Shelf Expiration Date Model / Serial / Lot Mesh Pelvic Prolapse Polypropylene Y Shape [id number] [facility] - [id number] - [id number] Implanted:Qty: 1 on 10/13/2018 by Liat Sheikh MD at [facility] Mesh N/A: Vagina COLOPLAST 05/15/2021 [id number] / [id number] / [id number] Insurance [facility] [place] [id number] Advance Directives Documents on File Type Date Recorded Patient Corrections Caseworker Expl anation Health Care Proxy 03/07/2021 * Full Code (Latest Code Status on File) Date Activated Date Inactivated Comments 10/13/2018 5:38 AM 10/14/2018 4:15 PM Healthcare Agents on File Name Relationship Healthcare Agent Relationship Communication Evan Hooper Spouse Healthcare Proxy - Primar y Lisa Biggs Daughter Healthcare Prox y - Alternative Care Teams Worm Farm Laborer Relationship Specialty Start Date End Date Margie Pham MD PCP - General 06/18/18
--- OUTSIDE RECORDS SUMMARY | 2025-03-30 15:31 | XMS_ITS | Encounter Summary ---
Author Organization [facility] Address [address] [place] [address] Care Team Providers Care Commissary Officer Name Role Phone Audrey Ramirez MD Primary Care Provider Un available Gaudencio Ballard MD Primary Care Provider Unavailabl e Reason for Visit * Reason Comments E-prescribe Rx Request Encounter Details Date Type Department Care Team Description 08/27/2017 Refill OBGYN - [place] [address] [place] [address] Isis Hawk MD E-prescribe Rx Request Social History Tobacco Use [...] EST WHEN WAS THE PATIENTS LAST ANNUAL TIER LIFT OPERATOR EXAM? 01/02 Does patient have an upcoming [...] / Plan: [place] / Product Type: MEDICARE [id number] documented in this encounter Plan of Treatment Not on file documented as of this encounter Visit Diagnoses Not on filedocumented in this encounter Care Teams Commissary Officer Relationship Specialty Start Date End Date Audrey Ramirez MD PCP - General Internal Medicine 01/20/16 Gaudencio Ballard MD PCP - General Internal Medicine 09/16/19 documented as of this encounter
--- OUTSIDE RECORDS SUMMARY | 2025-03-30 15:31 | XMS_ITS | Clinical Summary ---
Author Organization [facility] Address [address] [address] Phone Care Team Providers Care Rn Building Name Role Phone Gaudencio Ballard MD Primary Care Provider [phone] Allergies Active Allergy Reactions Criticality Noted Date [...] mouth 1 (one) time each day Active Active Problems Problem Noted Date Diagnosed [...] ct abd Bilateral nonobstructing renal calculi. Immunizations Immunization Administration Dates Next Due Pneumococcal [...] Office Visit [facility] [address] [address] Dania Celaya ARNP [address] [address] Health Maintenance Due Date Last Done Comments Breast Cancer Screening 1965 Hepatitis B Vaccine (1 of 3 - 19+ 3-dose series) 04/29 Colorectal Cancer Screening: Annual FOBT 2016 Colorectal Cancer Screening: Colonoscopy 2016 Colorectal Cancer Screening: Sigmoidoscopy 2016 Pneumococcal Vaccine: 50+ Ye ars (2 of 2 - PPSV23, PCV20, or PCV21) 06/12/2016 04/17/2016 Influenza Vaccine (#1) 2025 Pneumococcal Vaccine: Peds ( 0 to 5 Years) and At-Risk Patients (6 to 49 Years) Discontinued 04/17/2016 Insurance [facility] One Care Dual SNP ([id number]) [facility] One Care Dual SNP ([id number]) Care Teams Rn Building Relationship Specialty Start Date End Date Gaudencio Ballard MD [address] [place] [address] PCP - General Internal Medicine 12/12/22
--- OUTSIDE RECORDS SUMMARY | 2025-03-30 15:31 | XMS_ITS | Patient Health Record ---
Author Organization [facility] Address [address] [place] [address] Care Team Providers Care Disciplinary Hearing Officer Name Role Phone Elio MATHIS, [facility] Primary Care Provider UnavailArianna Estrella Unavailable [phone] Madison Cox Unavailable [phone] Silvia Green Unavailable [phone] Brock Ordonez Unavailable [phone] Allergies Allergen (clinical drug ingredient) Drug/Non Drug Allergy documented on EMR Reaction Allergy Type Onset Date Status trazodone Trazodone HCl heart palpitations Drug Allergy Active Latex Latex rash Allergy Active Penicillin Unknown Drug Allergy Active Reason For Referral No Information Medications Medication SIG (Take, Route, Frequency, Duration) Notes Start Date End Date Status Diclofenac Sodium 1 % as directed News Production Supervisor ally 4 times a day; Duration: 30 days 01/22/2025 Active Physical Therapy . . . 2-3x/week; Duration: 3-4 weeks Not-Taking Azithromycin Not-Louis ing predniSONE Not-Takin g Prilosec Active Cyclobenzaprine HCl 5 MG 1 tablet at bed time as needed Orally Once a day; Duration: 30 day(s) 03/05/2025 Active Diclofenac Sodium 75 MG 1 tablet with fo od Orally Twice a day; Duration: 30 days 11/05/2024 Active Gabapentin 300 MG 1 capsule Orally Onc e a day; Duration: 30 day(s) Active Night Splint AFO - L1930 1 wear at rest; Duration: 30 days Active Social History Tobacco Use: Social History [...] Problem Status W/U Status Risk Notes Problem Neuropathy (631689179) Neuropathy (G62.9) Active confirmed Problem Gout (39192946) Gout of right foot (M10.9) Active confirmed Rx drug management (4) Problem Plantar fascial fibromatosis (06986082) Plantar fasciitis, bilateral (M72.2) Active confirmed Vital Signs Heart Rate 80 /min 01/22/2025 Blood pressure diastolic 89 mm Hg 01/22/2025 Height 5ft in 03/05/2025 Blood pressure systolic 124 mm Hg 01/22/2025 Weight 176 lbs 03/05/2025 BMI 34.37 kg/m2 03/05/2025 Encounters Encounter Location Date Provider Diagnosis [facility] [address] [place] [address] 11/05/2024 Brock Ordonez Gout of right foot M10.9 and Pain in right toe(s) M79.[address] [address] 01/22/2025 Arianna Joshi Pain in right foot M79.671 ; Plantar fasciitis, bilateral M72.2 ; Calcaneal spur, right foot M77.31 ; Other myositis of right foot M60.871 ; Bursitis of right foot M77.51 ; Pain in left foot M79.672 ; Calcaneal spur, left foot M77.32 ; Other myositis of left foot M60.872 and Bursitis of left foot M77.[address] [address] 03/05/2025 Arianna Joshi Pain in right foot M79.671 ; Plantar fasciitis, bilateral M72.2 ; Calcaneal spur, right foot M77.31 ; Other myositis of right foot M60.871 ; Bursitis of right foot M77.51 ; Pain in left foot M79.672 ; Calcaneal spur, left foot M77.32 ; Other myositis of left foot M60.872 ; Bursitis of left foot M77.52 ; Neuritis M79.2 ; Neuropathy G62.9 and 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[facility]NA [facility] [address] [address] 03/12/2025 Arianna Joshi [facility] [address] 11/09/2024 Brock Ordonez [facility] [address] 11/09/[address] [address] 11/17/2024 Brock [facility] [address] [address] 03/05/2025 Arianna Joshi Assessments Encounter Date Diagnosis (ICD Code) Assessment Notes Treatment Notes Treatment Clinical Notes Section Notes 11/05/2024 Pain in right toe(s) (ICD-10 - M79.674) 11/05/2024 Gout of right foot (ICD-10 - M10.9) Rx drug management (4) Patient Educated with: GOUT.pdf (GOUT.pdf) Patient Educated with: LOW PURINE DIET.pdf (LOW PURINE DIET.pdf) CBC with diff also ordered 01/22/2025 Pain in right foot (ICD-10 - M79.671) 03/05/2025 Pain in right foot (ICD-10 - M79.671) 03/05/2025 Plantar fasciitis, bilateral (ICD-10 - M72.2) Patient Educated with: HEEL CORD STRETCHES.pdf (HEEL CORD STRETCHES.pdf) Patient Educated with: RICE THERAPY.pdf (RICE THERAPY.pdf) 01/22/2025 Plantar fasciitis, bilateral (ICD-10 - M72.2) Patient Educated with: HEEL CORD STRETCHES.pdf (HEEL CORD STRETCHES.pdf) Patient Educated with: RICE THERAPY.pdf (RICE THERAPY.pdf) 03/05/2025 Calcaneal spur, right foot (ICD-10 - M77.31) 01/22/2025 Calcaneal spur, right foot (ICD-10 - M77.31) 03/05/2025 Other myositis of right foot (ICD-10 - M60.871) 03/05/2025 Bursitis of right foot (ICD-10 - M77.51) 01/22/2025 Other myositis of right foot (ICD-10 - M60.871) 01/22/2025 Bursitis of right foot (ICD-10 - M77.51) 03/05/2025 Pain in left foot (ICD-10 - M79.672) 01/22/2025 Pain in left foot (ICD-10 - M79.672) 03/05/2025 Calcaneal spur, left foot (ICD-10 - M77.32) 01/22/2025 Calcaneal spur, left foot (ICD-10 - M77.32) 03/05/2025 Other myositis of left foot (ICD-10 - M60.872) 01/22/2025 Other myositis of left foot (ICD-10 - M60.872) 03/05/2025 Bursitis of left foot (ICD-10 - M77.52) 03/05/2025 Neuritis (ICD-10 - M79.2) 01/22/2025 Bursitis of left foot (ICD-10 - M77.52) 03/05/2025 Neuropathy (ICD-10 - G62.9) 03/05/2025 Neurapraxia of lower extremity (ICD-10 - S84.90XA) 11/05/2024 Other Plan Of Treatment Pending Test Test Name Order Date *Uric Acid, Serum 11/05/2024 *Sedimentation Rate-Westergren X ray : Foot, left 3V 01/22/2025 X ray : Foot, right 3V 11/05/2024 Insurance Providers Payer Name Payer Address Payer Phone Subscriber Number Group Number Insured Name Patient Relationship to Insured Coverage Start Date Coverage End Date [facility] [employer] Claims [address] [place] [id number] Janna Hooper Self - patient is the insured Medical (General) History Medical History History ICD Code Anxiety Arthritis asthma Back,Hip,and Knee pain Fibromyalgia Reflux ( GERD) Chicken pox Surgical History Surgery Date(Month/Year) bladder suspension 2009, 2010, 2011 hysterectomy 2012, 2014, 2018 Hospitalization History Reason Date(Month/Year) [facility] 11/2024 [facility] MRI bilateral ankles 07/21/20
== END 2025-03-30 15:12 | disposition home or self-care (01) ==
LOC: HO.HPS 14:37
PROVIDERS: PCP Internal Medicine; Referring Provider Internal Medicine; Visit Provider Hospitalist
DX: J45.20 Mild intermittent asthma, uncomplicated (principal); R93.89 Abnormal findings on diagnostic imaging of other specified body structures; J12.3 Human metapneumovirus pneumonia
CPT/HCPCS: 99204

== ENCOUNTER → 2025-03-30 14:36 | Outpatient (BNVA) | payer OTHER, SELFPAY | PROVIDERS: PCP Internal Medicine; Referring Provider Internal Medicine; Visit Provider Hospitalist | DX: J45.20 Mild intermittent asthma, uncomplicated (principal); J12.3 Human metapneumovirus pneumonia; R93.89 Abnormal findings on diagnostic imaging of other specified body structures | CPT/HCPCS: 99202 ==

== ENCOUNTER 2025-04-02 12:51 | Outpatient (AMB) | payer OTHER, SELFPAY ==
--- OUTSIDE RECORDS SUMMARY | 2025-04-02 12:54 | XMS_ITS | Clinical Summary ---
Author Organization [facility] Address [address] [place] [phone] Phone Care Team Providers Care Supply And Distribution Manager Name Role Phone Gaudencio Ballard MD Primary Care Provider [phone] Allergies Active Allergy Reactions Criticality Noted Date [...] Office Visit [facility] [address] [address] Dania Celaya ARNP [address] [address] Health Maintenance Due Date Last [...] (6 to 49 Years) Discontinued 04/17/2016 Insurance [facility] One Care Dual SNP ([id number]) [facility] One Care Dual SNP ([id number]) Care Teams Supply And Distribution Manager Relationship Specialty Start Date End Date Gaudencio Ballard MD [address] [place] [phone] PCP - General Internal Medicine 12/12/22
--- OUTSIDE RECORDS SUMMARY | 2025-04-02 12:54 | XMS_ITS | Clinical Summary ---
Author Organization [facility] Address [address] [place] [address] Care Team Providers Care Foam Fabricator Name Role Phone Margie Pham MD Primary Care Provider [phone] Allergies Active Allergy Reactions Criticality Noted Date [...] age to complete this topic Care Teams Foam Fabricator Relationship Specialty Start Date End Date Margie Pham MD PCP - General Internal Medicine 10/25/17
--- OUTSIDE RECORDS SUMMARY | 2025-04-02 12:54 | XMS_ITS | Clinical Summary ---
Author Organization [facility] Address [address] [place] [address] Care Team Providers Care Split Leather Mosser Name Role Phone Margie Pham MD Primary Care Provider [phone] Allergies Active Allergy Reactions Criticality Noted Date [...] Health Ghada ual Screening 08/19/2024 Influenza Vaccine (#1) 2025 DTaP,Tdap,and Td Vaccines (3 - Td or Tdap) 01/16/2029 01/16/2019, 06/26/2012, 08/27/2003 RSV Vaccine (60+ years old a nd patients) (1 - 1-dose 75+ series) 2042 Medical Devices Implanted Type Area Rn Cvicu Device Identifier Shelf Expiration Date Model / Serial / Lot Mesh Pelvic Prolapse Polypropylene Y Shape [id number] [facility] - [id number] - [id number] Implanted:Qty: 1 on 10/13/2018 by Liat Sheikh MD at [facility] Mesh N/A: Vagina COLOPLAST 05/15/2021 [id number] / [id number] / [id number] Insurance [facility] Advance Directives Documents on File Type Date Recorded 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
--- OUTSIDE RECORDS SUMMARY | 2025-04-02 12:54 | XMS_ITS | Clinical Summary ---
Author Organization [facility] [email or web address] Address [address] [place] [address] Phone Care Team Providers Care Supervisor Liquefaction Name Role Phone Gaudencio Ballard MD Primary Care Provider [phone] Allergies Active Allergy Reactions Criticality Noted Date [...] ID:ICO Type:Not on file Address: [address] [place] [address] Care Teams Supervisor Liquefaction Relationship Specialty Start Date End Date Gaudencio Ballard MD [address] [place] [phone] PCP - General Internal Medicine 09/16/19
--- OUTSIDE RECORDS SUMMARY | 2025-04-02 12:54 | XMS_ITS | Patient Health Record ---
Author [facility] [place] Address [address] [place] [address] Care Team Providers Care Cpo Name Role Phone Elio MATHIS, [facility] Primary Care Provider UnavailArianna Estrella Unavailable [phone] Madison Cox Unavailable [phone] Silvia Green Unavailable [phone] Brock Ordonez Unavailable [phone] Allergies Allergen (clinical drug ingredient) Drug/Non Drug Allergy documented on EMR Reaction Allergy Type Onset Date Status trazodone Trazodone HCl heart palpitations Drug Allergy Active Latex Latex rash Allergy Active Penicillin Unknown Drug Allergy Active Reason For Referral No Information Medications Medication SIG (Take, Route, Frequency, Duration) Notes Start Date End Date Status Diclofenac Sodium 1 % as directed Ios Architect ally 4 times a day; Duration: 30 [...] Status W/U Status Risk Notes Problem Neuropathy (956337879) Neuropathy (G62.9) Active confirmed Problem Gout (40905035) Gout of right foot (M10.9) Active confirmed Rx drug management (4) Problem Plantar fascial fibromatosis (85440872) Plantar fasciitis, bilateral (M72.2) Active confirmed Vital Signs Heart Rate 80 /min 01/22/2025 Blood pressure diastolic 89 mm Hg 01/22/2025 Height 5ft in 03/05/2025 Blood pressure systolic 124 mm Hg 01/22/2025 Weight 176 lbs 03/05/2025 BMI 34.37 kg/m2 03/05/2025 Encounters Encounter Location Date Provider Diagnosis [facility] [address] [place] [address] 11/05/2024 Brock Ordonez Gout of right foot M10.9 and Pain in right toe(s) M79.[address] [address] 01/22/2025 Arianna Joshi Pain in right foot M79.671 ; Plantar fasciitis, bilateral M72.2 ; Calcaneal spur, right foot M77.31 ; Other myositis of right foot M60.871 ; Bursitis of right foot M77.51 ; Pain in left foot M79.672 ; Calcaneal spur, left foot M77.32 ; Other myositis of left foot M60.872 and Bursitis of left foot M77.[address] [address] 03/05/2025 Arianna Joshi Pain in right foot [...] G62.9 and 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[facility] [address] [address] 03/12/2025 Arianna Joshi [facility] [address] 11/09/2024 [facility] [address] 11/09/[address] [address] 11/17/2024 [facility] [address] [address] 03/05/2025 Arianna Joshi Assessments Encounter Date Diagnosis [...] Insured Coverage Start Date Coverage End Date [facility] [employer] Claims [address] [place] [id number] Janna Hooper Self - patient is the insured Medical (General) History Medical History History ICD Code Anxiety Arthritis asthma Back,Hip,and Knee pain Fibromyalgia Reflux ( GERD) Chicken pox Surgical History Surgery Date(Month/Year) bladder suspension 2009, 2010, 2011 hysterectomy 2012, 2014, 2018 Hospitalization History Reason Date(Month/Year) [facility] 11/2024 [facility] MRI bilateral ankles 07/21/20
[2025-04-02 13:05] VITALS: PULSE 74; TEMP 36.9; O2SAT 97
--- NOTE | 2025-04-02 13:05 | AM.OFFWIN_ITS ---
Intake Vital Signs 04/02/25 13:05 Height 5 ft 4 in Pulse 74 Pulse Source Pulse Oximeter Temp 98.5 F Temp Source Oral Pulse Oximetry (%) 97 Oxygen Delivery Method Room Air Intake Visit Reasons: EP cyst? Patient Tobacco Use Status: Never used Tobacco Bindery Machine Setter Required: No Is last menstrual period known: No Post menopausal: No Patient : No Allergies cat dander (cats) Allergy (Intermediate, Verified 04/02/25 13:09) Itchy Eyes and burning cigarette smoke Allergy (Intermediate, Verified 04/02/25 13:09) migraines latex Allergy (Intermediate, Verified 04/02/25 13:09) Rash trazodone Allergy (Intermediate, Verified 04/02/25 13:09) palpitations Penicillins Adverse Reaction (Intermediate, Verified 04/02/25 13:09) Abdominal Pain tamsulosin Allergy (Severe, Uncoded 02/10/25 10:46) Dizziness Do you need a note to return to daycare/school/sports/work: No HPI HPI Comments History of Present Illness Details History of Present Illness - The patient is a 59-year-old female pr esenting with a recurrent abscess on the right buttocks. - The abscess has been intermittently pr esent for a month, initially appearing as a lump that ruptured spontaneously. - It resolved temporarily but recurred i n the same location, rupturing again with pressure. - The patient denies fever but experienc es hot flashes, complicating fever detection. - Self-care attempts included hot tub us e, potentially worsening the condition. - Family history indicates similar absce sses in her daughters, suggesting genetic factors. Physical Exam General: Cooperative, healthy appearing, comfortable, no acute distress and well developed Orientation: Patient oriented x3 Limitations: No limitations Head: Normal to inspection Ears: Hearing grossly normal bilaterally Nose: Normal External nose present Face and sinus: Normal facial exam Eyes: Appearance normal, both eyes and all related structures Neck: Normal visual inspection and Yes full ROM Respiratory: Normal respiratory effort and able to speak in complete sentences. Skin: slightly soft and indurated area (1cm round) with erythema on right buttocks, central pinpoint scant blood draining. no warmth noted Neuro: Patient oriented x3 Extremities: Normal to inspection [facility] Medical History (Updated 04/02/25 @ 13:35 by Li Izaguirre PA-C) Abnormal chest x-ray Asthma BMI 32.0-32.9,adult Obesity Kidney stones Kidney stones, calcium oxalate Perioral dermatitis Muscle spasm Microscopic hematuria Hot flashes Vitamin D deficiency Fibromyalgia Osteoarthritis Chronic GERD Depression, major, recurrent Surgical History Hx of appendectomy History of esophagogastroduodenoscopy (EGD) H/O colonoscopy History of hysterectomy History of surgery Family History Father No problems noted. Mother Asthma Dementia Alzheimer's disease Paternal Aunt Lung cancer Breast cancer, Onset Age: 62 Brother No problems noted. Brother No problems noted. Brother No problems noted. Sister No problems noted. Sister No problems noted. Sister No problems noted. Paternal Aunt Breast cancer, Onset Age: 70 Other Mental health disorder Social History Household Members: Significant Other and Children Household Members Other:: 2 children Housing: House Are you a primary student career development specialist to a significant other at home: No Do you presently have visiting nurse or other home services: No Alcohol intake: never Patient Tobacco Use Status: Never used Tobacco e-Cigarette/Vaping Use: Never Used Patient : No service: No Current occupational status: unemployed and disabled Cognitive needs: No Hearing needs: No Vision needs: Yes Female Reproductive History Menstrual Age of Menarche: 15 Review of Systems Const All systems reviewed & are unremarkable except as noted in HPI and below Physical Exam Vital Signs: Last Vital Signs Temp 98.5 F 04/02/25 13:05 Pulse 74 04/02/25 13:05 Pulse Ox 75 L 04/02/25 13:05 Oxygen Delivery Method Room Air 04/02/25 13:05 Office Procedures I&D Drain Details: In the area with an alcohol wipe and used an 18 gauge to drain 1mL blood with purulent fluid. Cleaned with an alcohol wipe and left a gauze in place. 24255-Aigqittm of Skin Abscess, simple All charges added?: Procedure code (CPT) selection complete Assessment & Plan Assessment & Plan (1) Abscess of buttock, right: Code(s): L02.31 - Cutaneous abscess of buttock Plan: Plan - No lidocaine used for I&D - Incision and drainage of the abscess were performed using an 18-gauge needle to facilitate drainage, mostly blood, some purulence. - Keflex was prescribed to prevent infection recurrence, with instructions to monitor for signs of systemic infection. - Can add Doxy if no improvement by Saturday04/05/25. - Advised to keep the area clean and dry, using alcohol wipes or witch mayuri for cleaning. - Recommended follow-up with a general surgeon or cooky machine operator if the abscess recurs. Patient was informed and verbally consented to the use of an ambient scribe for clinic note documentation during this visit. Orders: Orders AMB Incision & Drainage Today L02.31 - Cutaneous abscess of buttock Medications: New cephalexin 500 mg PO Q6H 28 caps 0RF Coding Level of Care Code Est Pt Level 3 (02054) Diagnoses Abscess of buttock, right L02.31 CPT Codes I&D Drain - Drain 1: 98108-Ehvehaeu of Skin Abscess, simple ([id number])
== END 2025-04-02 13:48 | disposition home or self-care (01) ==
PROVIDERS: PCP Internal Medicine; Visit Provider Physician Assistant
DX: L02.31 Cutaneous abscess of buttock (principal)

== ENCOUNTER → 2025-04-02 12:51 | Outpatient (BNVA) | payer OTHER, SELFPAY | PROVIDERS: PCP Internal Medicine; Visit Provider Physician Assistant | DX: L02.31 Cutaneous abscess of buttock (principal); R23.2 Flushing | CPT/HCPCS: 10060; 99212 ==

== ENCOUNTER 2025-04-27 13:08 | Outpatient (AMB) | payer OTHER, SELFPAY ==
--- OUTSIDE RECORDS SUMMARY | 2024-11-17 09:45 | XMS_ITS ---
Author Organization [facility] Address [address] [place] [address] Care Team Providers Care Winch Driver Name Role Phone Elio MATHIS, Gaudencio Primary Care Provider Unavailabl Arianna Menjivar Unavailable [phone] Madison Cox Unavailable [phone] Medications Medication SIG (Take, Route, Frequency, Duration) [...] Encounters Encounter Location Date Provider Diagnosis [address] [address] 11/17/2024 Madison Cox Plan Of Treatment No Information Progress Notes * Lasha MALIKeDOB:[birth year] (59 yo F)Acc No.[id number]:11/17/2024 Progress Notes Patient: Janna CALLES Provider: Cesar Cox DPM :1965 A ge:59 Y S ex:Female Date:11/17/2024 Address:[address] [place] [address] [place], [id number] Pcp:Gaudencio Ballard MD Subjective: * Chief Complaints: [...] Date: 11/17/2024 Generated for Sofi ayoub/Keren/Rhea on: 04/27/2025 03:27 PM EDT
--- OUTSIDE RECORDS SUMMARY | 2025-03-22 05:30 | XMS_ITS ---
Author Organization [facility] Address [address] [place] [address] Care Team Providers Care Principal Trainer Name Role Phone Elio MATHIS, Gaudencio Primary Care Provider UnavailArianna Estrella Unavailable [phone] Silvia Green Unavailable [phone] REASON FOR VISIT Seen Sooner Encounters Encounter Location Date Provider Diagnosis [address] [address] 03/22/2025 Silvia Green Plan Of Treatment No Information Progress Notes * Danyel MALIKOB:[birth year] (59 yo F)Acc No.[id number]:03/22/2025 Progress Note Patient: Gayle GODDARD Janna Provider: Ania Green DPM :1965 A ge:59 Y S ex:Female Date:03/22/2025 Address:[address] [place], [place] [phone] Pcp:Gaudencio Ballard MD Subjective: * Chief Complaints: [...] 03/22/2025 Generated for Sofi ayoub/Keren/Rosalbaitting on: 0 04/27/2025 03:27 PM EDT
[2025-04-27 13:10] VITALS: BP 110/72; PULSE 73; O2SAT 98
--- NOTE | 2025-04-27 13:10 | A.OFFPC_ITS ---
Vital Signs 04/27/25 13:10 Height 5 ft 4 in Weight 175 lb BMI 30.0 BP 110/72 Blood Pressure Location Lt brachial Position Sitting Pulse 73 Pulse Source Pulse Oximeter Pulse Oximetry (%) 98 Intake Visit Reasons: follow up, concerns Allergies cat dander (cats) Allergy (Intermediate, Verified 04/27/25 13:11) Itchy Eyes and burning cigarette smoke Allergy (Intermediate, Verified 04/27/25 13:11) migraines latex Allergy (Intermediate, Verified 04/27/25 13:11) Rash trazodone Allergy (Intermediate, Verified 04/27/25 13:11) palpitations Penicillins Adverse Reaction (Intermediate, Verified 04/27/25 13:11) Abdominal Pain tamsulosin Allergy (Severe, Uncoded 02/10/25 10:46) Dizziness Medication List - Last Reconciled 04/27/25 by Gaudencio Ballard MD [Adult Sanitary Wipes 4 packs / month] albuterol sulfate 90 mcg/actuation 2 puffs inhalation Q6H PRN albuterol sulfate 2.5 mg (3 mL) inhalation QID PRN amitriptyline 10 mg PO BEDTIME cholecalciferol (vitamin D3) 25 mcg PO DAILY 90 days disposable gloves (Disposable Latex-Free Gloves) Use As directed gabapentin 300 mg PO BEDTIME 90 days lorazepam mg PO DAILY magnesium 250 mg PO BID metoprolol succinate ER mg PO DAILY nebulizers with supplies and all needed equipment, to use for updraft treatments pantoprazole 40 mg PO BID [Poise incontinence pads Requires poise due to allergies. NS] pyridoxine (vitamin B6) 100 mg PO DAILY [suction grab bars As directed] tacrolimus 0.03% topical DAILY tramadol 50 mg PO BID PRN 15 days turmeric mg PO [Updraft machine tubing As directed] venlafaxine ER 150 mg PO BEDTIME 90 days Tobacco use date assessed: 01/19/25 Dental Screening Dental Screen Date: 02/05/25 HPI follow up, concerns HPI Details History The patient is a 59-year-old female presenting with chronic pain and mobility issues. Osteoarthritis: - Symptoms started post bladder mesh imp lant rejection in 2009. - Experiences severe joint pain, particu larly in elbows and knees, with noticeable swelling. - Reports the presence of lumps in the f eet causing difficulty in walking. - Pain described to be severe, impacting daily activities and sleep. - Exacerbated during colder months, caus ing increased discomfort. Fibromyalgia: - Diagnosed after complications with a b ladder mesh implant in 2009. - Symptoms include widespread chronic amy dy aches, exacerbated by colder temperatures. - Pain management inefficacy noted princess winter. Plantar Fasciitis: - History of long-standing plantar fasci itis causing significant foot pain. - Pain described as burning sensation on prolonged standing and difficulty walking after rest. - Previous attempts to manage with speci al shoes; however, symptoms persist. Raynaud's Phenomenon: - Episodes of feet turning blue while sh owering, identified as Raynaud?s phenomenon. - Symptoms temporary and related to bravo ges in temperature. Visual disturbances: - Blurred vision noted when aggravated; symptoms spontaneously improve over time. Polyarthralgia: - Recurrent joint swelling and pain; sev erity impacts mobility and quality of life. - Chronic nature worsening without speci alist intervention. Patient also would like to have FMLA paperwork filled for her as he has to take her to appointment everywhere Which I did filled, to be off 4 times a month as needed for appointments Medical History: - Osteoarthritis - Fibromyalgia - Plantar Fasciitis - Polyarthralgia - Raynaud's Phenomenon suspicion - Permanent disability due to mobility i ssues - blurring of vision Surgical History: - Bladder mesh implant (2009) - Subsequent mesh removal due to rejecti on and hemorrhaging complications Medications: - Amitriptyline at night for pain manage ment - Gabapentin for pain symptoms - Tramadol for pain as needed - pantoprazole for chronic GERD - venlafaxine for anxiety disorder Social History: - Lives with who is primary resident care supervisor due to her disability. - Reports significant mobility issues im pacting daily activities; requires ?s assistance to attend medical appointments. - No reported use of tobacco, alcohol, o r recreational drugs. - Previously engaged in exercise and swi mming for therapy; currently unable due to financial constraints. Problem List - Osteoarthritis - Fibromyalgia - Plantar Fasciitis - Polyarthralgia - Suspected Raynaud's Phenomenon - blurring of vision - paresthesia lower extremity - need FMLA paperwork for her so he can take her to appointments - need a letter stating that she can clari efit from massage therapy so she can get it approved from her insurance company Patient Instructions - Continue current pain management medic ations as prescribed. - Consider special footwear with appropr iate arch support to alleviate foot pain. - Follow up with malted milk mixer and neur ologist referrals as advised. - Attend swimming lessons or therapy if accessible to aid mobility. Patient is requesting a letter stating that she can benefit from massage therapy physical therapy and swimming so she can get a discount from her insurance. Letter provided - follow-up 6 weeks Review of Systems General: No fever no chills ear nose throat: No sore throat no hearing difficulty no ear pain cardiovascular: No syncope, no chest pain, no palpitations gastrointestinal: No nausea vomiting or diarrhea endocrine: No polyuria polydipsia no heat intolerance genitourinary: No dysuria skin: No new complaints Physical Exam general: No acute distress HEENT: No acute findings Both eyes within normal limit, MAYKEL, EOMI neck: Supple respiratory system: Able to talk in full sentences, no audible wheeze no stridor cardiovascular: S1-S2 RRR gastrointestinal: No pain extremities: No obvious joint problem, both knees with full range of motion CLASS A REGIONAL DRIVERS: Alert awake oriented x3 motor intact skin: Normal turgor, PFSH Medical History Abnormal chest x-ray Asthma BMI 32.0-32.9,adult Obesity Kidney stones Kidney stones, calcium oxalate Perioral dermatitis Muscle spasm Microscopic hematuria Hot flashes Vitamin D deficiency Fibromyalgia Osteoarthritis Chronic GERD Depression, major, recurrent Surgical History Hx of appendectomy History of esophagogastroduodenoscopy (EGD) H/O colonoscopy History of hysterectomy History of surgery Family History Father No problems noted. Mother Asthma Dementia Alzheimer's disease Paternal Aunt Lung cancer Breast cancer, Onset Age: 62 Brother No problems noted. Brother No problems noted. Brother No problems noted. Sister No problems noted. Sister No problems noted. Sister No problems noted. Paternal Aunt Breast cancer, Onset Age: 70 Other Mental health disorder Social History Household Members: Significant Other and Children Household Members Other:: 2 children Housing: House Are you a primary critical care cns to a significant other at home: No Do you presently have visiting nurse or other home services: No Alcohol intake: never Patient Tobacco Use Status: Never used Tobacco e-Cigarette/Vaping Use: Never Used service: No Current occupational status: unemployed and disabled Cognitive needs: No Hearing needs: No Vision needs: Yes Female Reproductive History Menstrual Age of Menarche: 15 Questionnaire Thrive Questionnaire Date Thrive assessed: 10/27/24 I am a: Patient What is your living situation today?: I have a steady place to live Within the past 12 months, did the food you bought not last and you didn't have the money to get more?: Never true Within the past 12 months, did you worry whether your food would run out before you got money to buy more?: Never true Do you have trouble paying for medicines?: No Do you have trouble getting transportation to medical appointments?: No Do you have trouble paying your heating and electricity bill?: No Do you have trouble taking care of your child, family member or friend?: No Do you have trouble with day-to-day activities such as bathing, preparing meals, shopping, managing finances, etc.?: I choose not to answer this question Are you currently unemployed and looking for a job?: Yes Are you interested in more education?: No Please select the resources that you would like help with: None Currently or been in a relationship where the following occur: No concerns reported THRIVE Score: 0 OLI-7 AMB Questionnaire OLI-7 Date OLI - 7 assessed: 01/19/25 Source: Developed by Drs. Gatito Agustin, Catina Hunter, Adrien Liao and colleagues, with an educational kori from [employer]. Physical exam (Primary Care) Vital Signs: Last Vital Signs Pulse 73 04/27/25 13:10 BP 110/72 04/27/25 13:10 Pulse Ox 98 04/27/25 13:10 BMI result Body Mass Index 30.0 Tobacco/Smoking Status: Tobacco use Status Tobacco use date assessed 01/19/25 04/27/25 13:14 Patient Tobacco Use Status Never used Tobacco 04/27/25 13:14 e-Cigarette/Vaping Use Never Used 04/27/25 13:14 Thrive Assessment: Date of Thrive Assessment Date Thrive assessed 10/27/24 04/27/25 13:14 Currently or been in a relationship where the following occur: No concerns reported Coding Level of Care Code Est Pt Level 5 (18049) Complex EM visit Add On G2211 Diagnoses Disability affecting daily living R53.81 Polyarthralgia M25.50 Fibromyalgia M79.7 Bilateral plantar fasciitis M72.2 Bilateral foot pain M79.671; M79.672 Blurring of vision H53.8 Paresthesia of lower extremity R20.2 Mixed stress and urge urinary incontinence N39.46 Urinary Incontinence type: mixed stress and urge incontinence Time Spent (min) 45 Comment Paperwork/letter/reviewing chart/labs/iihw-sz-rdvy/coordination of care Assessment & Plan Assessment & Plan (1) Disability affecting daily living: Code(s): R53.81 - Other malaise Category: Medical (2) Polyarthralgia: Code(s): M25.50 - Pain in unspecified joint Category: Medical (3) Fibromyalgia: Code(s): M79.7 - Fibromyalgia Category: Medical (4) Bilateral plantar fasciitis: Code(s): M72.2 - Plantar fascial fibromatosis Category: Medical (5) Bilateral foot pain: Code(s): M79.671 - Pain in right foot; M79.672 - Pain in left foot Category: Medical (6) Blurring of vision: Code(s): H53.8 - Other visual disturbances Category: Medical (7) Paresthesia of lower extremity: Code(s): R20.2 - Paresthesia of skin Category: Medical (8) Urine incontinence: Code(s): R32 - Unspecified urinary incontinence Category: Medical Qualifiers: Urinary Incontinence type: mixed stress and urge incontinence Qualified Code(s): N39.46 - Mixed incontinence Plan History The patient is a 59-year-old female presenting with chronic pain and mobility issues. Osteoarthritis: - Symptoms started post bladder mesh implant rejection in 2009. - Experiences severe joint pain, particularly in elbows and knees, with noti ceable swelling. - Reports the presence of lumps in the feet causing difficulty in walking. - Pain described to be severe, impacting daily activities and sleep. - Exacerbated during colder months, causing increased discomfort. Fibromyalgia: - Diagnosed after complications with a bladder mesh implant in 2009. - Symptoms include widespread chronic body aches, exacerbated by colder temperatures. - Pain management inefficacy noted during winter months. Plantar Fasciitis: - History of long-standing plantar fasciitis causing significant foot pain. - Pain described as burning sensation on prolonged standing and difficulty walking after rest. - Previous attempts to manage with special shoes; however, symptoms persist. Raynaud's Phenomenon: - Episodes of feet turning blue while showering, identified as Raynaud?s phenomenon. - Symptoms temporary and related to changes in temperature. Visual disturbances: - Blurred vision noted when aggravated; symptoms spontaneously improve over time. Polyarthralgia: - Recurrent joint swelling and pain; severity impacts mobility and quality of life. - Chronic nature worsening without specialist intervention. Patient also would like to have [place] paperwork filled for her as he has to take her to appointment everywhere Which I did filled, to be off 4 times a month as needed for appointments Medical History: - Osteoarthritis - Fibromyalgia - Plantar Fasciitis - Polyarthralgia - Raynaud's Phenomenon suspicion - Permanent disability due to mobility issues - blurring of vision Surgical History: - Bladder mesh implant (2009) - Subsequent mesh removal due to rejection and hemorrhaging complications Medications: - Amitriptyline at night for pain management - Gabapentin for pain symptoms - Tramadol for pain as needed - pantoprazole for chronic GERD - venlafaxine for anxiety disorder Social History: - Lives with who is primary mainspring former brace end due to her disability. - Reports significant mobility issues impacting daily activities; requires ?s assistance to attend medical appointments. - No reported use of tobacco, alcohol, or recreational drugs. - Previously engaged in exercise and swimming for therapy; currently unable due to financial constraints. Problem List - Osteoarthritis - Fibromyalgia - Plantar Fasciitis - Polyarthralgia - Suspected Raynaud's Phenomenon - blurring of vision - paresthesia lower extremity - need FMLA paperwork for her so he can take her to appointments - need a letter stating that she can benefit from massage therapy so she can get it approved from her insurance company Patient Instructions - Continue current pain management medications as prescribed. - Consider special footwear with appropriate arch support to alleviate foot pain. - Follow up with malted milk mixer and neurologist referrals as advised. - Attend swimming lessons or therapy if accessible to aid mobility. Patient is requesting a letter stating that she can benefit from massage therapy physical therapy and swimming so she can get a discount from her insurance. Letter provided - follow-up 6 weeks Orders: Referrals Rheumatology Referral M25.50 - Pain in unspecified joint, M79.10 - Myalgia, unspecified site, M79.7 - Fibromyalgia Podiatry Referral M79.671 - Pain in right foot, M79.672 - Pain in left foot Neurology Referral H53.8 - Other visual disturbances, R20.2 - Paresthesia of skin Medications: New [shoes for planter faciatis] As directed 1 ea 0RF M72.2 - Plantar fascial fibromatosis
--- OUTSIDE RECORDS SUMMARY | 2025-04-27 15:28 | XMS_ITS | Clinical Summary ---
Author Organization [facility] Address [address] [place] [address] Care Team Providers Care Customer Care Specialist Name Role Phone Margie Pham MD Primary Care Provider [phone] Allergies Active Allergy Reactions Criticality Noted Date [...] age to complete this topic Care Teams Customer Care Specialist Relationship Specialty Start Date End Date Margie Pham MD PCP - General Internal Medicine 10/25/17
--- OUTSIDE RECORDS SUMMARY | 2025-04-27 15:28 | XMS_ITS | Clinical Summary ---
Author Organization [facility] Address [address] [place] [address] Care Team Providers Care Electric Arc Welder Name Role Phone Margie Pham MD Primary Care Provider [phone] Allergies Active Allergy Reactions Criticality Noted Date [...] series) 2042 Medical Devices Implanted Type Area Resource Management Planner Device Identifier Shelf Expiration Date Model / Serial / Lot Mesh Pelvic Prolapse Polypropylene Y Shape [id number] [facility] - [id number] - [id number] Implanted:Qty: 1 on 10/13/2018 by Liat Sheikh MD at [facility] Mesh N/A: Vagina COLOPLAST 05/15/2021 [id number] / [id number] / [id number] Insurance [facility] Advance Directives Documents on File Type Date Recorded Patient End Matcher Expl anation Health Care Proxy 03/07/2021 * Full Code (Latest Code Status on File) Date Activated Date Inactivated Comments 10/13/2018 5:38 AM 10/14/2018 4:15 PM Healthcare Agents on File Name Relationship Healthcare Agent Relationship Communication Evan Hooper Spouse Healthcare Proxy - Primar y Lisa Biggs Daughter Healthcare Prox y - Alternative Care Teams Electric Arc Welder Relationship Specialty Start Date End Date Margie Pham MD PCP - General 06/18/18
--- OUTSIDE RECORDS SUMMARY | 2025-04-27 15:28 | XMS_ITS | Clinical Summary ---
Author Organization [facility] Address [address] [place] [address] Phone Care Team Providers Care Sales Agent Insurance Name Role Phone Gaudencio Ballard MD Primary Care Provider [phone] Allergies Active Allergy Reactions Criticality Noted Date [...] Surgery Date Site/Laterality Comments ESOPHAGOGASTRODUODENOSCOPY 01/21/07 PROCEDURE: WY ESOPHAGOGASTRODUODENOSCOPY TRANSORAL DIAGNOSTIC; COMMENT: Normal PARTIAL HYSTERECTOMY 03/2010 PROCEDURE: [place]Y SUPRACERVICAL ABDL HYSTER W/WO RMVL TUBE OVARY; COMMENT: Da Dragan TLH with sacropexy, mesh urethral support OTHER SURGICAL HISTORY PROCEDURE: FEMALE SLING SYS W/WO MATRL OTHER SURGICAL HISTORY PROCEDURE: [place]Y RMVL PROSTC MATRL/MESH ABDL WALL FOR INFECTION BREAST SURGERY 2011 Right PROCEDURE: W[place] UNLISTED PROCEDURE BREAST; COMMENT: rt cyst removed [...] ID:ICO Type:Not on file Address: [address] [place] [address] Care Teams Sales Agent Insurance Relationship Specialty Start Date End Date Gaudencio Ballard MD [address] [place] [id number] PCP - General Internal Medicine 09/16/19
--- OUTSIDE RECORDS SUMMARY | 2025-04-27 15:28 | XMS_ITS | Patient Health Record ---
[facility] Address [address] [place] [address] Care Team Providers Care Director Investment Banking Name Role Phone [facility]ATHIS, [facility] Primary Care Provider UnavailArianna Estrella Unavailable [phone] Madison Cox Unavailable [phone] Silvia Green Unavailable [phone] Brock Ordonez Unavailable [phone] Allergies Allergen (clinical drug ingredient) Drug/Non Drug Allergy documented on EMR Reaction Allergy Type Onset Date Status trazodone Trazodone HCl heart palpitations Drug Allergy Active Latex Latex rash Allergy Active Penicillin Unknown Drug Allergy Active Reason For Referral No Information Medications Medication SIG (Take, Route, Frequency, Duration) Notes Start Date End Date Status Diclofenac Sodium 1 % as directed Hand Spring Repairer Helper ally 4 times a day; Duration: 30 [...] Status W/U Status Risk Notes Problem Neuropathy (018407351) Neuropathy (G62.9) Active confirmed Problem Gout (57851055) Gout of right foot (M10.9) Active confirmed Rx drug management (4) Problem Plantar fascial fibromatosis (38859775) Plantar fasciitis, bilateral (M72.2) Active confirmed Vital Signs Heart Rate 80 /min 01/22/2025 Blood pressure diastolic 89 mm Hg 01/22/2025 Height 5ft in 03/05/2025 Blood pressure systolic 124 mm Hg 01/22/2025 Weight 176 lbs 03/05/2025 BMI 34.37 kg/m2 03/05/2025 Encounters Encounter Location Date Provider Diagnosis [facility] [address] [place] [address] 11/05/2024 Brock Ordonez Gout of right foot M10.9 and Pain in right toe(s) M79.[address] [address] 01/22/2025 Arianna Joshi Pain in right foot M79.671 ; Plantar fasciitis, bilateral M72.2 ; Calcaneal spur, right foot M77.31 ; Other myositis of right foot M60.871 ; Bursitis of right foot M77.51 ; Pain in left foot M79.672 ; Calcaneal spur, left foot M77.32 ; Other myositis of left foot M60.872 and Bursitis of left foot M77.[address] [address] 03/05/2025 Arianna Joshi Pain in right foot [...] G62.9 and 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[facility] [address] 11/09/2024 [facility] [address] 11/09/2024 Brock Ordonez [address] [address] 11/17/2024 [facility] [address] [address] 03/05/2025 [facility] [address] [address] 03/12/2025 Arianna Joshi [address] [address] 04/20/2025 Arianna Jsohi Assessments Encounter Date Diagnosis (ICD Code) Assessment [...] Insured Coverage Start Date Coverage End Date [facility] [employer] Claims [address] [place] [id number] [phone] [id number] Janna Hooper Self - patient is the insured Medical (General) History Medical History History ICD Code Anxiety Arthritis asthma Back,Hip,and Knee pain Fibromyalgia Reflux ( GERD) Chicken pox Surgical History Surgery Date(Month/Year) bladder suspension 2009, 2010, 2011 hysterectomy 2012, 2014, 2018 Hospitalization History Reason Date(Month/Year) [facility] [facility] 11/2024 [facility] MRI bilateral ankles 07/21/20
--- OUTSIDE RECORDS SUMMARY | 2025-04-27 15:28 | XMS_ITS | Clinical Summary ---
Author Organization [facility] Address [address] [address] Phone Care Team Providers Care Development Geologist Name Role Phone Gaudencio Ballard MD Primary Care Provider [phone] Allergies Active Allergy Reactions Criticality Noted Date [...] Office Visit [facility] [address] [address] Dania Celaya ARNP [address] [address] Health Maintenance Due Date Last [...] (6 to 49 Years) Discontinued 04/17/2016 Insurance [facility] One [employer] Dual SNP ([id number]) [facility] One [employer] Dual SNP ([id number]) Care Teams Development Geologist Relationship Specialty Start Date End Date Gaudencio Ballard MD [address] [place] [phone] PCP - General Internal Medicine 12/12/22
== END 2025-04-27 13:42 | disposition home or self-care (01) ==
LOC: HO.HMCC 13:08
PROVIDERS: PCP Internal Medicine; Visit Provider Internal Medicine
DX: R53.81 Other malaise (principal); M25.50 Pain in unspecified joint; M79.7 Fibromyalgia; M72.2 Plantar fascial fibromatosis; M79.671 Pain in right foot; M79.672 Pain in left foot; H53.8 Other visual disturbances; R20.2 Paresthesia of skin; N39.46 Mixed incontinence

== ENCOUNTER → 2025-04-27 13:08 | Outpatient (BNVA) | payer OTHER, SELFPAY | PROVIDERS: PCP Internal Medicine; Visit Provider Internal Medicine | DX: M79.7 Fibromyalgia (principal); I73.00 Raynaud's syndrome without gangrene; R53.81 Other malaise; H53.8 Other visual disturbances; M72.2 Plantar fascial fibromatosis; M79.671 Pain in right foot; M79.672 Pain in left foot; R20.2 Paresthesia of skin; N39.46 Mixed incontinence | CPT/HCPCS: 99212 ==

== ENCOUNTER 2025-05-10 | Outpatient (REF) | payer OTHER, SELFPAY ==
--- OUTSIDE RECORDS SUMMARY | 2025-07-13 09:53 | XMS_ITS | Clinical Summary ---
Author Organization [employer] Address [address] [place] [address] Care Team Providers Care Mastic Floor Layer Name Role Phone Unavailable Primary Care Provider [...] Encounters Date Type Department Care Team Description 07/05/2025 11:00 AM EST Office Visit [facility] ADULT D[facility] [address] [place] [address] Bobby Ash DMD 07/04/2025 Travel 05/31/2025 9:00 AM EDT Office Visit [facility] ADULT D[facility] [address] [place] [address] Funmi Castillo Secondary dental caries associated with failed or defective dental catholic (Primary Dx); Bruxism 05/31/2025 Travel from Last 3 Months Social History Tobacco Use Types Packs/Day Years Used Date Smoking Tobacco: Never Smokeless Tobacco: Never Tobacco Cessation:Counseling Given: Not Answered Comments Unknown Sex and Gender Information Value Date Recorded Sex Assigned at Female 02/01/2025 2:35 PM EDT Legal Sex Female 2:33 PM EDT Gender Identity Female 02/01/2025 2:35 PM EDT Sexual Orientation Straight 07/05/2025 9: 11 AM EST Last Filed Vital Signs Vital Sign Reading Time Taken Comments Blood Pressure 108/70 05/31/2025 9:09 AM EDT Pulse - - Temperature - - Respiratory Rate - - Oxygen Saturation - - Inhaled Oxygen Concentration - - Weight - - Height - - Body Mass Index - - Plan of Treatment Upcoming Encounters Date Type Department Care Team (Late st Contact Info) Description 08/23/2025 10:00 AM EST Office Visit [facility] ADULT [facility] [address], [place] [phone] Bobby Ash, DMD [address], [place] [phone] Health Maintenance Due Date Last Done Comments [...] Vaccine: 50+ Years (2 of 2 - PPSV23, PCV20, or PCV21) 06/12/2016 04/17/2016 RSV Patients and Patients Aged 60 years or older (1 - Risk 50-74 years 1-dose series) 2017 Zoster Vaccines (1 of 2) 2017 DTaP/Tdap/Td Vaccines (4 - Td or Tdap) 06/26/2022 06/26/2012, 08/27/2003, 08/27/2003, Additional history exists COVID-19 Vaccine ( season) 2025 Influenza Vaccine (#1) 2025 Dental Oral Exam 11/30/2025 05/31/2025 Dental Prophylaxis 11/30/2025 05/31/2025 Dental X-Ray: Bitewings 06/01/2026 05/31/2025 Tobacco Screening 07/05/2026 07/05/2025 Dental X-Ray: Full Mouth 06/01/2028 05/31/2025 HIB Vaccines Aged Out No longer eligi [...] Procedure Name Priority Date/Time Associated Diagnosis Comments CASE PRESENTATION, DETAILED AND EXTENSIVE TREATMENT PLANNING Routine 07/05/2025 11:00 AM EST LIMITED ORAL EVALUATION - PROBLEM FOCUSED Routine 07/05/2025 11:00 AM EST COMPREHENSIVE ORAL EVALUATION - NEW OR ESTABLISHED PATIENT Routine 05/31/2025 9:00 AM EDT Bruxism Secondary dental caries associated with failed or defective dental catholic CASE PRESENTATION, DETAILED AND EXTENSIVE TREATMENT PLANNING Routine 05/31/2025 9:00 AM EDT Bruxism Secondary dental caries associated with failed or defective dental catholic PROPHYLAXIS - ADULT Routine 05/31/2025 9 :00 AM EDT Bruxism Secondary dental caries associated with failed or defective dental catholic INTRAORAL - COMPLETE SERIES OF RADIOGRAPHIC IMAGES Routine 05/31/2025 9:00 AM EDT Bruxism Secondary dental caries associated with failed or defective dental catholic 5 B(V) COMPOSITE FILLING Routine 025 12:00 [...]
--- OUTSIDE RECORDS SUMMARY | 2025-07-13 09:53 | XMS_ITS | Clinical Summary ---
Author Organization [employer] [facility] [employer] Address [address] [place] [address] Phone Care Team Providers Care Compensator Worker Name Role Phone Gaudencio Ballard MD Primary Care Provider [phone] Allergies Active Allergy Reactions Criticality Noted Date [...] Surgery Date Site/Laterality Comments ESOPHAGOGASTRODUODENOSCOPY 01/21/07 PROCEDURE: [place] ESOPHAGOGASTRODUODENOSCOPY TRANSORAL DIAGNOSTIC; COMMENT: Normal PARTIAL HYSTERECTOMY 03/2010 PROCEDURE: [place] SUPRACERVICAL ABDL HYSTER W/WO RMVL TUBE OVARY; COMMENT: Da Dragan TLH with sacropexy, mesh urethral support OTHER SURGICAL HISTORY PROCEDURE: FEMALE SLING SYS W/WO MATRL OTHER SURGICAL HISTORY PROCEDURE: [place] RMVL PROSTC MATRL/MESH ABDL WALL FOR INFECTION BREAST SURGERY 2011 Right PROCEDURE: [place] UNLISTED PROCEDURE BREAST; COMMENT: rt cyst removed [...] ID:[id number] Group ID:ICO Type:Not on file Address: [facility] [address] [address] Care Teams Compensator Worker Relationship Specialty Start Date End Date Gaudencio Ballard MD [address] [place] [address] PCP - General Internal Medicine 09/16/19
--- OUTSIDE RECORDS SUMMARY | 2025-07-13 09:53 | XMS_ITS | Clinical Summary ---
Author Organization [facility] Address [address] [place] [address] Care Team Providers Care Coffee Attendant Name Role Phone Margie Pham MD Primary Care Provider [phone] Allergies Active Allergy Reactions Criticality Noted Date [...] age to complete this topic Care Teams Coffee Attendant Relationship Specialty Start Date End Date Margie Pham MD PCP - General Internal Medicine 10/25/17
--- OUTSIDE RECORDS SUMMARY | 2025-07-13 09:53 | XMS_ITS | Clinical Summary ---
Author Organization [facility] Address [address] [address] Phone Care Team Providers Care Batching Operator Name Role Phone Gaudencio Ballard MD Primary Care Provider [phone] Allergies Active Allergy Reactions Criticality Noted Date [...] Office Visit [facility] [address] [address] Dania Celaya ARNP [address] [address] Health Maintenance Due Date Last [...] to 49 Years) Discontinued 04/17/2016 Insurance [facility] One Care Dual SNP ([id number]) [facility] One Care Dual SNP ([id number]) Care Teams Batching Operator Relationship Specialty Start Date End Date Gaudencio Ballard MD [address] [place] [address] PCP - General Internal Medicine 12/12/22
--- OUTSIDE RECORDS SUMMARY | 2025-07-13 09:53 | XMS_ITS | Clinical Summary ---
Author Organization [facility] Address [address] [place] [address] Care Team Providers Care School Age Program Associate Name Role Phone Margie Pham MD Primary Care Provider [phone] Allergies Active Allergy Reactions Criticality Noted Date [...] Td or Tdap) 01/16/2029 01/16/2019, 06/26/2012, 08/27/2003 Medical Devices Implanted Type Area Assistant Therapy Aide Device Identifier Shelf Expiration Date Model / Serial / Lot Mesh Pelvic Prolapse Polypropylene Y Shape [id number] [facility] - [id number] - [id number] Implanted:Qty: 1 on 10/13/2018 by Liat Sheikh MD at [facility] Mesh N/A: Vagina COLOPLAST 05/15/2021 [id number] / [id number] Insurance Advance Directives Documents on File Type Date Recorded 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
== END 2025-05-10 00:01 | disposition home or self-care (01) ==
LOC: CF
PROVIDERS: PCP Internal Medicine; Visit Provider Student in an Organized Health Care Education/Training Program
DX: M72.2 Plantar fascial fibromatosis (principal); M76.61 Achilles tendinitis, right leg; M76.62 Achilles tendinitis, left leg
CPT/HCPCS: 99202

== ENCOUNTER 2025-05-10 11:32 | Outpatient (AMB) | payer OTHER, SELFPAY ==
--- OUTSIDE RECORDS SUMMARY | 2024-11-17 09:45 | XMS_ITS ---
Author Organization [facility] Address [address] [place] [address] Care Team Providers Care Police Communications Dispatcher Name Role Phone Elio MATHIS, Gaudencio Primary Care Provider Unavailabl Arianna Menjivar Unavailable [phone] Madison Cox Unavailable [phone] Medications Medication SIG (Take, Route, Frequency, Duration) [...] Active Encounters Encounter Location Date Provider Diagnosis [address] [address] 11/17/2024 Madison Cox Plan Of Treatment No Information Progress Notes * Lasha MALIKeDOB:[birth year] (60 yo F)Acc No.[id number]:11/17/2024 Progress Notes Patient: Janna CALLES Provider: Cesar Cox DPM :1965 A ge:59 Y S ex:Female Date:11/17/2024 Address:[address] [place] [address] [place], [id number] Pcp:Gaudencio Ballard MD Subjective: * Chief Complaints: [...] Pending * Provider: Cesar Cox DPM Date: 11/17/2024 Generated for Sofi ayoub/Keren/Rhea on: 05/10/2025 02:13 PM EDT
--- OUTSIDE RECORDS SUMMARY | 2025-03-22 05:30 | XMS_ITS ---
Author Organization [facility] Address [address] [place] [address] Care Team Providers Care Cryogenics Repairer Name Role Phone Elio MATHIS, Gaudencio Primary Care Provider UnavailArianna Estrella Unavailable [phone] Silvia Green Unavailable [phone] REASON FOR VISIT Seen Sooner Encounters Encounter Location Date Provider Diagnosis [address] [address] 03/22/2025 Silvia Green Plan Of Treatment No Information Progress Notes * Danyel MALIKOB:[birth year] (60 yo F)Acc No.[id number]:03/22/2025 Progress Note Patient: Gayle GODDARD Janna Provider: Ania Green DPM :1965 A ge:59 Y S ex:Female Date:03/22/2025 Address:[address] [place], [place] [address] Pcp:Gaudencio Ballard MD Subjective: * Chief Complaints: [...] 03/22/2025 Generated for Sofi ayoub/Keren/Rosalbaitting on: 0 05/10/2025 02:13 PM EDT
--- NOTE | 2025-05-10 11:41 | A.OFFVIS_ITS ---
Vital Signs 05/10/25 11:42 Height 5 ft 4 in Weight 174 lb BMI 29.9 Intake Visit Reasons: bilateral plantar fasciitis Intake Note: Janna is a 60 year old female who presents today for an evaluation of her bilateral Plantar fasciitis. She mentions having bilateral foot Pain for more than 6 years. She describes the pain as a burning Pin&needles sensation on prolonged standing and experiences difficulty walking after rest. Patient reports she has tried special shoes and inserts and found that it did not help with her symptoms. Allergies cat dander (cats) Allergy (Intermediate, Verified 05/10/25 11:42) Itchy Eyes and burning cigarette smoke Allergy (Intermediate, Verified 05/10/25 11:42) migraines latex Allergy (Intermediate, Verified 05/10/25 11:42) Rash trazodone Allergy (Intermediate, Verified 05/10/25 11:42) palpitations Penicillins Adverse Reaction (Intermediate, Verified 05/10/25 11:42) Abdominal Pain tamsulosin Allergy (Severe, Uncoded 02/10/25 10:46) Dizziness Medication List - Last Reconciled 05/10/25 by Matt Barron DPM [Adult Sanitary Wipes 4 packs / month] albuterol sulfate 90 mcg/actuation 2 puffs inhalation Q6H PRN albuterol sulfate 2.5 mg (3 mL) inhalation QID PRN amitriptyline 10 mg PO BEDTIME cholecalciferol (vitamin D3) 25 mcg PO DAILY 90 days disposable gloves (Disposable Latex-Free Gloves) Use As directed gabapentin 300 mg PO BEDTIME 90 days lorazepam mg PO DAILY magnesium 250 mg PO BID metoprolol succinate ER mg PO DAILY nebulizers with supplies and all needed equipment, to use for updraft treatments pantoprazole 40 mg PO BID [Poise incontinence pads Requires poise due to allergies. NS] pyridoxine (vitamin B6) 100 mg PO DAILY [shoes for planter faciatis As directed] [suction grab bars As directed] tacrolimus 0.03% topical DAILY tramadol 50 mg PO BID PRN 15 days turmeric mg PO [Updraft machine tubing As directed] venlafaxine ER 150 mg PO BEDTIME 90 days HPI HPI bilateral plantar fasciitis: Details: The patient is a 60-year-old female with past medical history including fibromyalgia, lumbar radiculopathy, osteoarthritis who presents for initial evaluation for chronic bilateral heel pain. The patient reports a burning sensation in the bottom of her feet, which intensifies after resting/sitting for a prolonged period of time and then getting up to walk. The pain is severe enough to cause limping and is primarily located in the heel, but has recently extended to the toes and occasionally radiates to her calf. This condition has persisted for over five years, despite attempts at management, including stretching exercises and injections. The patient has tried various interventions, including the use of supportive footwear and inserts, but reports limited relief. She has also used a massage machine and frozen water bottle stretches to alleviate symptoms. She recently received a night splint for right lower extremity from her other picker / packer. The patient has a history of fibromyalgia and arthritis, which may exacerbate her symptoms. She has undergone six surgeries in the past, leading to her current disabled status. Despite these challenges, she remains active. Surgical History: - Six unspecified surgeries leading to disability status Medications: - Flexeril for muscle relaxation - Gabapentin for nerve pain Social History: - Employment: Currently not working due to disability status - Exercise: Engages in elliptical workouts, previously used treadmill but stopped due to pain [facility] Medical History Abnormal chest x-ray Asthma BMI 32.0-32.9,adult Obesity Kidney stones Kidney stones, calcium oxalate Perioral dermatitis Muscle spasm Microscopic hematuria Hot flashes Vitamin D deficiency Fibromyalgia Osteoarthritis Chronic GERD Depression, major, recurrent Surgical History Hx of appendectomy History of esophagogastroduodenoscopy (EGD) H/O colonoscopy History of hysterectomy History of surgery Family History Father No problems noted. Mother Asthma Dementia Alzheimer's disease Paternal Aunt Lung cancer Breast cancer, Onset Age: 62 Brother No problems noted. Brother No problems noted. Brother No problems noted. Sister No problems noted. Sister No problems noted. Sister No problems noted. Paternal Aunt Breast cancer, Onset Age: 70 Other Mental health disorder Social History Household Members: Significant Other and Children Household Members Other:: 2 children Housing: House Are you a primary career orientation teacher to a significant other at home: No Do you presently have visiting nurse or other home services: No Alcohol intake: never Patient Tobacco Use Status: Never used Tobacco e-Cigarette/Vaping Use: Never Used service: No Current occupational status: unemployed and disabled Cognitive needs: No Hearing needs: No Vision needs: Yes Female Reproductive History Menstrual Age of Menarche: 15 Review of Systems Const All systems reviewed & are unremarkable except as noted in HPI and below Physical Exam Vital Signs: BMI result Body Mass Index 29.9 Extrem Other: *Bilateral Lower Extremity Focused Exam Vascular: DP/PT 2/4, CFT less than 3 seconds all digits, temperature gradient warm to cool, no pedal edema. Derm: No ecchymosis, no open wounds or lacerations. No clinical signs of infection. Neuro: Protective sensation grossly intact to bilateral lower extremities. Negative Tinel sign. MSK: Moderate tenderness on palpation along the medial calcaneal tubercle bilateral heels. No pain or tenderness along the plantar fascial bands, however there are small fibromas present within the medial plantar fascia band of the right foot. Right Ankle dorsiflexion 0 degrees on knee extension right, 3-4 degrees on knee flexion. Left ankle dorsiflexion 2-3 degrees on knee extension, 5 degrees on knee flexion. Moderate arch bilaterally. Assessment & Plan Assessment & Plan (1) Bilateral plantar fasciitis: Code(s): M72.2 - Plantar fascial fibromatosis Category: Medical Plan: * Discussed etiology of the patient's foot pain. Differential diagnosis includes plantar fasciitis, neuritis, tendinitis. * Patient educated on the nature and etiology of plantar fasciitis, which i nvolves inflammation and microtearing of the plantar fascia due to repetitive stress and overuse. * Patient states she has already had x-rays to her feet. We may require x-rays in the future however will defer at this time. * The patient was counseled on conservative management of plantar fasciitis, including daily stretching exercises targeting the plantar fascia and Achilles tendon, use of supportive and properly fitting footwear, and consideration of custom or prefabricated orthotics to improve foot biomechanics. * Discussed that if symptoms persist despite these measures, further interventions such as corticosteroid injections may be considered. * Instructed the patient on home stretching and range of motion exercises including calf-stretches, frozen water bottle therapy, band-therapy. * Referred to physical therapy. * Recommended supportive shoe-wear with arch-supports to avoid increased loading on the patient's plantar fascia band. Recommended Powerstep inserts and Hoka shoes. * Patient states she has a history of GERD and defers and NSAID treatment at this time. * She was dispensed a night splint for her left lower extremity. * Follow up in 1 month. (2) Achilles tendinitis of both lower extremities: Code(s): M76.61 - Achilles tendinitis, right leg; M76.62 - Achilles tendinitis, left leg Category: Medical Plan: * Referred to physical therapy Orders: Orders PT Evaluation and Treatment Today M72.2 - Plantar fascial fibromatosis Coding Level of Care Code New Pt Level 3 (62762) Diagnoses Bilateral plantar fasciitis M72.2 Achilles tendinitis of both lower extremities M76.61; M76.62 Time Spent (min) 40
[2025-05-10 11:42] VITALS: BMI 29.9
--- OUTSIDE RECORDS SUMMARY | 2025-05-10 14:13 | XMS_ITS | Clinical Summary ---
Author Organization [employer] Address [address] [facility] 7 [place] [address] Care Team Providers Care Real Estate Account Executive Name Role Phone Unavailable Primary Care Provider Unavailabl e Social History Tobacco Use Types Packs/Day Years Used Date Smoking Tobacco: Never Assessed Comments Unknown Sex and Gender Information Value Date Recorded Sex Assigned at Female 02/01/2025 2:35 PM EDT Legal Sex Female 2:33 PM EDT Gender Identity Female 02/01/2025 2:35 PM EDT Sexual Orientation Straight 02/01/2025 2: 35 PM EDT Plan of Treatment Upcoming Encounters Date Type Department Care Team (Late st Contact Info) Description 05/31/2025 9:00 AM EDT Office Visit [facility] [address] [place], [place] [phone] Funmi Castillo [address] [place], [place] [phone] Health Maintenance Due Date Last Done Comments CT Colonography 1967 Colonoscopy 1967 Colorectal Cancer Screening 1967 Dental Oral Exam 1967 Dental Prophylaxis 1967 Dental X-Ray: Bitewings 1967 Dental X-Ray: Full Mouth 1967 Depression Screening 1967 FIT DNA/Cologuard 1967 FIT 1967 FOBT 1967 HIV Screening 1967 SDOH Screening 1967 Sigmoidoscopy 1967 Disability Screening 1967 Alcohol/Substance Use Screening 1979 Tobacco Screening 1979 Hepatitis C Screening 1985 DTaP/Tdap/Td Vaccines (1 - Tdap) 1986 Hepatitis B Vaccines (1 of 3 - 19+ 3-dose series) 1986 Pap Smear 1988 Cervical Cancer Screening 1997 HPV/Cotest 1997 Mammogram 2007 Pneumococcal Vaccine: 50+ Ye ars (1 of 1 - PCV) 2017 Zoster Vaccines (1 of 2) 2017 COVID-19 Vaccine (1 - 2023-2 5 season) 2025 Influenza Vaccine (#1) 2025 RSV Patients and Pa tients Aged 60 years or older (1 - 1-dose 75+ series) 2042 HIB Vaccines Aged Out No longer eligi [...] patient's age to complete this topic Meningococcal Vaccine Aged Out No kellee blane eligible based on patient's age to complete this topic RSV under 20 months Aged Out No longe r eligible based on patient's age to complete this topic Rotavirus Vaccines Aged Out No longer eligible based on patient's age to complete this topic Insurance
--- OUTSIDE RECORDS SUMMARY | 2025-05-10 14:13 | XMS_ITS | Clinical Summary ---
Author Organization [facility] Address [address] [address] Phone Care Team Providers Care Real Estate Consultant Name Role Phone Gaudencio Ballard MD Primary Care Provider [phone] Allergies Active Allergy Reactions Criticality Noted Date [...] Office Visit [facility] [address] [address] Dania Celaya ARNP [address] [address] Health Maintenance Due Date Last [...] (6 to 49 Years) Discontinued 04/17/[address] [facility] One Care Dual SNP ([id number]) [facility] One Care Dual SNP ([id number]) Care Teams Real Estate Consultant Relationship Specialty Start Date End Date Gaudencio Ballard MD [address] [place] [address] PCP - General Internal Medicine 12/12/22
--- OUTSIDE RECORDS SUMMARY | 2025-05-10 14:14 | XMS_ITS | Clinical Summary ---
Author Organization [facility] [employer] Address [address] [place] [address] Phone Care Team Providers Care Contact Center Specialist Name Role Phone Gaudencio Ballard MD Primary Care Provider [phone] Allergies Active Allergy Reactions Criticality Noted Date [...] Surgery Date Site/Laterality Comments ESOPHAGOGASTRODUODENOSCOPY 01/21/07 PROCEDURE: [place] ESOPHAGOGASTRODUODENOSCOPY TRANSORAL DIAGNOSTIC; COMMENT: Normal PARTIAL HYSTERECTOMY 03/2010 PROCEDURE: NV SUPRACERVICAL ABDL HYSTER W/WO RMVL TUBE OVARY; COMMENT: Da Dragan TLH with sacropexy, mesh urethral support OTHER SURGICAL HISTORY PROCEDURE: FEMALE SLING SYS W/WO MATRL OTHER SURGICAL HISTORY PROCEDURE: NV RMVL PROSTC MATRL/MESH ABDL WALL FOR INFECTION BREAST SURGERY 2011 Right PROCEDURE: NV UNLISTED PROCEDURE BREAST; COMMENT: rt cyst removed [...] 01/16/2029 01/16/2019, 06/26/2012, 08/27/2003, Additional history exists RSV Immunization Adult Patients (1 - 1-dose 75+ series) 2042 Hepatitis C Screening Completed 06/21/2008 HIB Vaccines [...] ID:[id number] Group ID:[id number] Type:Not on file Address: [place] [address] [address] Care Teams Contact Center Specialist Relationship Specialty Start Date End Date Gaudencio Ballard MD [address] [place] [address] PCP - General Internal Medicine 09/16/19
--- OUTSIDE RECORDS SUMMARY | 2025-05-10 14:14 | XMS_ITS | Patient Health Record ---
Author Organization [facility] [place] Address [address] [place] [address] Care Team Providers Care Licensed Final Expense Agents Name Role Phone Elio MATHIS, [facility] Primary Care Provider UnavailArianna Estrella Unavailable [phone] [place] Cox Unavailable [phone] Silvia Green Unavailable [phone] Brock Ordonez Unavailable [phone] Allergies Allergen (clinical drug ingredient) Drug/Non Drug Allergy documented on EMR Reaction Allergy Type Onset Date Status trazodone Trazodone HCl heart palpitations Drug Allergy Active Latex Latex rash Allergy Active Penicillin Unknown Drug Allergy Active Reason For Referral No Information Medications Medication SIG (Take, Route, Frequency, Duration) Notes Start Date End Date Status Diclofenac Sodium 1 % as directed Tube Mill Operator ally 4 times a day; Duration: 30 [...] Status W/U Status Risk Notes Problem Neuropathy (975977784) Neuropathy (G62.9) Active confirmed Problem Gout (57950119) Gout of right foot (M10.9) Active confirmed Rx drug management (4) Problem Plantar fascial fibromatosis (46113053) Plantar fasciitis, bilateral (M72.2) Active confirmed Vital Signs Heart Rate 80 /min 01/22/2025 Blood pressure diastolic 89 mm Hg 01/22/2025 Height 5ft in 03/05/2025 Blood pressure systolic 124 mm Hg 01/22/2025 Weight 176 lbs 03/05/2025 BMI 34.37 kg/m2 03/05/2025 Encounters Encounter Location Date Provider Diagnosis [facility] [address] [place] [address] 11/05/2024 Brock Ordonez Gout of right foot M10.9 and Pain in right toe(s) M79.[address] [address] 01/22/2025 Arianna Joshi Pain in right foot M79.671 ; Plantar fasciitis, bilateral M72.2 ; Calcaneal spur, right foot M77.31 ; Other myositis of right foot M60.871 ; Bursitis of right foot M77.51 ; Pain in left foot M79.672 ; Calcaneal spur, left foot M77.32 ; Other myositis of left foot M60.872 and Bursitis of left foot M77.[address] [address] 03/05/2025 Arianna Joshi Pain in right foot [...] G62.9 and 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EDNA [place] [facility] [address] 11/09/2024 [facility] [address] 11/09/2024 Brock Ordonez [address] [address] 11/17/2024 [facility] [address] [address] 03/05/2025 Arianna [facility] [address] [address] 03/12/2025 Arianna Joshi [address] [address] 04/20/2025 Arianna Joshi Assessments Encounter Date Diagnosis (ICD [...] Insured Coverage Start Date Coverage End Date [facility] SCO Claims [address] [place] [id number] [phone] [id number] Janna Hooper Self - patient is the insured Medical (General) History Medical History History ICD Code Anxiety Arthritis asthma Back,Hip,and Knee pain Fibromyalgia Reflux ( GERD) Chicken pox Surgical History Surgery Date(Month/Year) bladder suspension 2009, 2010, 2011 hysterectomy 2012, 2014, 2018 Hospitalization History Reason Date(Month/Year) [facility] [place]/2024 [facility]I MRI bilateral ankles 07/21/20
--- OUTSIDE RECORDS SUMMARY | 2025-05-10 14:14 | XMS_ITS | Clinical Summary ---
Author Organization [facility] Address [address] [place] [address] Care Team Providers Care Environmental Science Technician Name Role Phone Margie Pham MD Primary Care Provider [phone] Allergies Active Allergy Reactions Criticality Noted Date [...] series) 2042 Medical Devices Implanted Type Area Server Programmer Device Identifier Shelf Expiration Date Model / Serial / Lot Mesh Pelvic Prolapse Polypropylene Y Shape [id number] [facility] - [id number] - [id number] Implanted:Qty: 1 on 10/13/2018 by Liat Sheikh MD at [facility] Mesh N/A: Vagina COLOPLAST 05/15/2021 [id number] / [id number] / [id number] Insurance [facility] Advance Directives Documents on File Type Date Recorded Patient Dance Therapist Expl anation Health Care Proxy 03/07/2021 * Full Code (Latest Code Status on File) Date Activated Date Inactivated Comments 10/13/2018 5:38 AM 10/14/2018 4:15 PM Healthcare Agents on File Name Relationship Healthcare Agent Relationship Communication Evan Hooper Spouse Healthcare Proxy - Primar y Lisa Biggs Daughter Healthcare Prox y - Alternative Care Teams Environmental Science Technician Relationship Specialty Start Date End Date Margie Pham MD PCP - General 06/18/18
--- OUTSIDE RECORDS SUMMARY | 2025-05-10 14:14 | XMS_ITS | Clinical Summary ---
Author Organization [facility] Address [address] [place] [address] Care Team Providers Care Product Development Scientist Name Role Phone Margie Pham MD Primary Care Provider [phone] Allergies Active Allergy Reactions Criticality Noted Date [...] age to complete this topic Care Teams Product Development Scientist Relationship Specialty Start Date End Date Margie Pham MD PCP - General Internal Medicine 10/25/17
== END 2025-05-10 12:20 | disposition home or self-care (01) ==
LOC: HO.HPODS 11:33
PROVIDERS: PCP Internal Medicine; Visit Provider Student in an Organized Health Care Education/Training Program
DX: M72.2 Plantar fascial fibromatosis (principal); M76.61 Achilles tendinitis, right leg; M76.62 Achilles tendinitis, left leg
CPT/HCPCS: 99203

== ENCOUNTER 2025-05-13 08:56 | Outpatient (REF) | payer OTHER, SELFPAY ==
--- NOTE | ~2025-05-13 | XR_ITS ---
EXAMINATION: XR KNEE, RIGHT CLINICAL INFORMATION: M25.561 - Pain in right knee COMPARISON: None available. TECHNIQUE: AP and lateral views of the right knee. FINDINGS: There is no joint effusion. There is subtle narrowing of the medial joint space. No osteophytes are identified. XR/XR knee RT 2V IMPRESSION: Minimal nonspecific medial joint space narrowing. Electronically signed by: Lupillo José MD 05/13/2025 12:13 PM EDT
== END 2025-05-13 08:57 | disposition home or self-care (01) ==
LOC: HO.HMGCX 08:56
PROVIDERS: PCP Internal Medicine; Visit Provider Internal Medicine
DX: M25.561 Pain in right knee (principal); M79.7 Fibromyalgia; M19.91 Primary osteoarthritis, unspecified site; M72.2 Plantar fascial fibromatosis; R20.2 Paresthesia of skin; F41.1 Generalized anxiety disorder; F33.41 Major depressive disorder, recurrent, in partial remission; R73.03 Prediabetes; R53.82 Chronic fatigue, unspecified; Z79.891 Long term (current) use of opiate analgesic; Z79.899 Other long term (current) drug therapy
CPT/HCPCS: 73560

== ENCOUNTER 2025-05-13 08:56 | Outpatient (AMB) | payer OTHER, SELFPAY ==
--- OUTSIDE RECORDS SUMMARY | 2024-11-17 09:45 | XMS_ITS ---
Author Organization [facility] Address [address] [place] [address] Care Team Providers Care Insulator Cutter And Former Name Role Phone Elio MATHIS, Gaudencio Primary Care Provider Unavailabl Arianna Menjivar Unavailable [phone] Madison Cox Unavailable [phone] Medications Medication SIG (Take, Route, Frequency, Duration) [...] Active Encounters Encounter Location Date Provider Diagnosis [address] [address] 11/17/2024 Madison Cox Plan Of Treatment No Information Progress Notes * Lasha MALIKeDOB:[birth year] (60 yo F)Acc No.[id number]:11/17/2024 Progress Notes Patient: Janna CALLES Provider: Cesar Cox DPM :1965 A ge:59 Y S ex:Female Date:11/17/2024 Address:[address] [place] [address] [place], [id number] Pcp:Gaudencoi Ballard MD Subjective: * Chief Complaints: * [...] Date: 11/17/2024 Generated for Sofi ayoub/Keren/Rhea on: 05/13/2025 09:38 AM EDT
--- OUTSIDE RECORDS SUMMARY | 2025-03-22 05:30 | XMS_ITS ---
Author Organization [facility] Address [address] [place] [address] Care Team Providers Care Samples And Repairs Preparer Name Role Phone Elio MATHIS, Gaudencio Primary Care Provider UnavailArianna Estrella Unavailable [phone] Silvia Green Unavailable [phone] REASON FOR VISIT Seen Sooner Encounters Encounter Location Date Provider Diagnosis [address] [address] 03/22/2025 Silvia Green Plan Of Treatment No Information Progress Notes * Danyel MALIKOB:[birth year] (60 yo F)Acc No.[id number]:03/22/2025 Progress Note Patient: Gayle GODDARD Janna Provider: Ania Green DPM :1965 A ge:59 Y S ex:Female Date:03/22/2025 Address:[address] [place], [place] [phone] Pcp:Gaudencio Ballard MD Subjective: * Chief Complaints: [...] 0 03/22/2025 Generated for Sofi ayoub/Keren/Rosalbaitting on: 0 05/13/2025 09:38 AM EDT
--- OUTSIDE RECORDS SUMMARY | 2025-05-13 09:38 | XMS_ITS | Clinical Summary ---
Author Organization [facility] Address [address] [place] [address] Care Team Providers Care Food Service Steward Name Role Phone Margie Pham MD Primary Care Provider [phone] Allergies Active Allergy Reactions Criticality Noted Date [...] age to complete this topic Care Teams Food Service Steward Relationship Specialty Start Date End Date Margie Pham MD PCP - General Internal Medicine 10/25/17
--- OUTSIDE RECORDS SUMMARY | 2025-05-13 09:38 | XMS_ITS | Patient Health Record ---
Author Organization [facility]y [place] Address [address] [place] [address] Care Team Providers Care Buyer Intern Name Role Phone Elio [facility]ATHIS, [facility] Primary Care Provider UnavailArianna Estrella Unavailable [phone] Madison Cox Unavailable [phone] Silvia Green Unavailable [phone] Brock Ordonez Unavailable [phone] Allergies Allergen (clinical drug ingredient) Drug/Non Drug Allergy documented on EMR Reaction Allergy Type Onset Date Status trazodone Trazodone HCl heart palpitations Drug Allergy Active Latex Latex rash Allergy Active Penicillin Unknown Drug Allergy Active Reason For Referral No Information Medications Medication SIG (Take, Route, Frequency, Duration) Notes Start Date End Date Status Diclofenac Sodium 1 % as directed Practice Management Consultant ally 4 times a day; Duration: 30 [...] Status W/U Status Risk Notes Problem Neuropathy (343764671) Neuropathy (G62.9) Active confirmed Problem Gout (05125483) Gout of right foot (M10.9) Active confirmed Rx drug management (4) Problem Plantar fascial fibromatosis (03260078) Plantar fasciitis, bilateral (M72.2) Active confirmed Vital Signs Heart Rate 80 /min 01/22/2025 Blood pressure diastolic 89 mm Hg 01/22/2025 Height 5ft in 03/05/2025 Blood pressure systolic 124 mm Hg 01/22/2025 Weight 176 lbs 03/05/2025 BMI 34.37 kg/m2 03/05/2025 Encounters Encounter Location Date Provider Diagnosis [facility] [address] [place] [address] 11/05/2024 Brock Ordonez Gout of right foot M10.9 and Pain in right toe(s) M79.[address] [address] 01/22/2025 Arianna Joshi Pain in right foot M79.671 ; Plantar fasciitis, bilateral M72.2 ; Calcaneal spur, right foot M77.31 ; Other myositis of right foot M60.871 ; Bursitis of right foot M77.51 ; Pain in left foot M79.672 ; Calcaneal spur, left foot M77.32 ; Other myositis of left foot M60.872 and Bursitis of left foot M77.[address] [address] 03/05/2025 Arianna Joshi Pain in right foot [...] G62.9 and 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EDNA [facility] [address] 11/09/2024 [facility] [address] 11/09/2024 Brock Ordonez [address] [address] 11/17/2024 [facility] [address] [address] 03/05/2025 Ari[facility] Jos[facility] [address] [address] 03/12/2025 Arianna Joshi [address] [address] 04/20/2025 Arianna Joshi Assessments Encounter Date Diagnosis [...] Insured Coverage Start Date Coverage End Date [facility] SCO Claims [address] [place] [id number] [phone] [id number] Janna Hooper Self - patient is the insured Medical (General) History Medical History History ICD Code Anxiety Arthritis asthma Back,Hip,and Knee pain Fibromyalgia Reflux ( GERD) Chicken pox Surgical History Surgery Date(Month/Year) bladder suspension 2009, 2010, 2011 hysterectomy 2012, 2014, 2018 Hospitalization History Reason Date(Month/Year) [facility] [facility] MRI bilateral ankles 07/21/20
--- OUTSIDE RECORDS SUMMARY | 2025-05-13 09:38 | XMS_ITS | Clinical Summary ---
Author Organization [facility] [employer] Address [address] [place] [address] Phone Care Team Providers Care Agricultural Education Instructor Name Role Phone Gaudencio Ballard MD Primary Care Provider [phone] Allergies Active Allergy Reactions Criticality Noted Date [...] Surgery Date Site/Laterality Comments ESOPHAGOGASTRODUODENOSCOPY 01/21/07 PROCEDURE: [place] ESOPHAGOGASTRODUODENOSCOPY TRANSORAL DIAGNOSTIC; COMMENT: Normal PARTIAL HYSTERECTOMY 03/2010 PROCEDURE: [place] SUPRACERVICAL ABDL HYSTER W/WO RMVL TUBE OVARY; COMMENT: Da Dragan TLH with sacropexy, mesh urethral support OTHER SURGICAL HISTORY PROCEDURE: FEMALE SLING SYS W/WO MATRL OTHER SURGICAL HISTORY PROCEDURE: [place] RMVL PROSTC MATRL/MESH ABDL WALL FOR INFECTION BREAST SURGERY 2011 Right PROCEDURE: CO UNLISTED PROCEDURE BREAST; COMMENT: rt cyst removed [...] Group ID:ICO Type:Not on file Address: [place] [address] [address] Care Teams Agricultural Education Instructor Relationship Specialty Start Date End Date Gaudencio Ballard MD [address] [place] [address] PCP - General Internal Medicine 09/16/19
--- OUTSIDE RECORDS SUMMARY | 2025-05-13 09:38 | XMS_ITS | Clinical Summary ---
Author Organization [email or web address] Address [address] [place] [address] 7 [place] [address] Care Team Providers Care Nuclear Process Engineer Name Role Phone Unavailable Primary Care Provider [...] Description 05/31/2025 9:00 AM EDT Office Visit [facility] [address] [place], [place] [phone] Funmi Castillo [address] [place], [place] [phone] Health Maintenance Due Date Last Done Comments [...]
--- OUTSIDE RECORDS SUMMARY | 2025-05-13 09:38 | XMS_ITS | Clinical Summary ---
Author Organization [facility] Address [address] [address] Phone Care Team Providers Care U.S. Revenue Officer Name Role Phone Gaudencio Ballard MD Primary Care Provider [phone] Allergies Active Allergy Reactions Criticality Noted Date [...] canal. Bipolar II disorder 06/10/2013 04/11/2023 04/11/20 Post-traumatic stress disorder 06/10/2013 04/11/2023 04/11/2023 Depressive disorder [...] Office Visit [facility] [address] [address] Dania Celaya ARNP [address] [address] Health Maintenance Due Date Last [...] (6 to 49 Years) Discontinued 04/17/2016 Insurance [facility] One Care Dual SNP ([id number]) [facility] One Care Dual SNP ([id number]) Care Teams U.S. Revenue Officer Relationship Specialty Start Date End Date Gaudencio Ballard MD [address] [place] [address] PCP - General Internal Medicine 12/12/22
--- OUTSIDE RECORDS SUMMARY | 2025-05-13 09:38 | XMS_ITS | Clinical Summary ---
Author Organization [facility] Address [address] [place] [address] Care Team Providers Care Tight Cooper Name Role Phone Margie Pham MD Primary Care Provider [phone] Allergies Active Allergy Reactions Criticality Noted Date [...] series) 2042 Medical Devices Implanted Type Area Technical Sales Consultant Device Identifier Shelf Expiration Date Model / Serial / Lot Mesh Pelvic Prolapse Polypropylene Y Shape [id number] [facility] - [id number] - [id number] Implanted:Qty: 1 on 10/13/2018 by Liat Sheikh MD at [facility] Mesh N/A: Vagina COLOPLAST 05/15/2021 [id number] Insurance [facility] Advance Directives Documents on File Type Date Recorded Patient Light Truck Driver Expl anation Health Care Proxy 03/07/2021 * Full Code (Latest Code Status on File) Date Activated Date Inactivated Comments 10/13/2018 5:38 AM 10/14/2018 4:15 PM Healthcare Agents on File Name Relationship Healthcare Agent Relationship Communication Evan Hooper Spouse Healthcare Proxy - Primar y Lisa Biggs Daughter Healthcare Prox y - Alternative Care Teams Tight Cooper Relationship Specialty Start Date End Date Margie Pham MD PCP - General 06/18/18
--- NOTE | 2025-05-13 10:36 | MHC.PC.OV ---
Intake Visit Reasons: US vs mammogram Allergies cat dander (cats) Allergy (Intermediate, Verified 05/10/25 11:42) Itchy Eyes and burning cigarette smoke Allergy (Intermediate, Verified 05/10/25 11:42) migraines latex Allergy (Intermediate, Verified 05/10/25 11:42) Rash trazodone Allergy (Intermediate, Verified 05/10/25 11:42) palpitations Penicillins Adverse Reaction (Intermediate, Verified 05/10/25 11:42) Abdominal Pain tamsulosin Allergy (Severe, Uncoded 02/10/25 10:46) Dizziness Medication List - Last Reconciled 05/13/25 by Gaudencio Ballard MD [Adult Sanitary Wipes 4 packs / month] albuterol sulfate 90 mcg/actuation 2 puffs inhalation Q6H PRN albuterol sulfate 2.5 mg (3 mL) inhalation QID PRN amitriptyline 10 mg PO BEDTIME cholecalciferol (vitamin D3) 25 mcg PO DAILY 90 days disposable gloves (Disposable Latex-Free Gloves) Use As directed gabapentin 300 mg PO BEDTIME 90 days lorazepam mg PO DAILY magnesium 250 mg PO BID metoprolol succinate ER mg PO DAILY nebulizers with supplies and all needed equipment, to use for updraft treatments pantoprazole 40 mg PO BID [Poise incontinence pads Requires poise due to allergies. NS] pyridoxine (vitamin B6) 100 mg PO DAILY [shoes for planter faciatis As directed] [suction grab bars As directed] tacrolimus 0.03% topical DAILY tramadol 50 mg PO BID PRN 15 days turmeric mg PO [Updraft machine tubing As directed] venlafaxine ER 150 mg PO BEDTIME 90 days Tobacco use date assessed: 01/19/25 Dental Screening Dental Screen Date: 02/05/25 HPI US vs mammogram HPI Details History The patient is a 60 year old female presenting with concerns regarding mammograms, chronic foot pain, worsening knee pain, neurological symptoms, and prediabetes. Mammogram and Breast Lump: - The patient has been experiencing pain due to a lump in the breast, which makes undergoing a mammogram uncomfortable. - The lump has been present for a long period, and the patient is concerned about the mammography procedure spreading cancer due to pressure. - Despite initial reluctance, the patient is considering a mammogram after canceling a previous appointment to avoid radiation. - The patient has a scheduled visit with a general surgeon and needs the mammogram before this appointment. Chronic Foot Pain and Worsening Knee Pain: - The patient reports enduring significant foot pain for many years, which worsens after walking and causes difficulty standing and walking. - Despite seeing a ham rolling machine operator and being advised to pursue physical therapy and insoles, the patient feels the root cause hasn't been addressed. - The pain has escalated to involve the knees, particularly the right knee, making it difficult to recover from bending without assistance. - The patient wakes up at night due to severe knee pain and suspects inflammation, requesting an X-ray for further investigation. Neurological Symptoms (Numbness and Tingling): - The patient experiences tingling in the toes and fingers, with instances of numbness, suggesting possible neuropathy. - The patient reports these symptoms have worsened over the years, impacting daily life and leading to concerns about a neurological basis. - She is verbalizing resistance to undergoing nerve conduction studies due to concerns about pain from previous experiences. Prediabetes and Energy Levels: - The patient is described as prediabetic she has already seen Rhumatology in 2022 and work up has shown Fibromyalgia anxiety : taking medication for that Problem List - Breast lump - Chronic foot pain - Right knee pain - Tingling and numbness in extremities - Fibromyalgia - Osteoarthritis - Prediabetes Diagnostic results - Recent blood test in January showed fasting glucose of 85, HbA1c 5.6 (normal range) - Kidney stones: 4mm stone on right side, 3mm stones on left side within kidneys [place] of Care - General surgeon for breast lump evaluation - Director [employer] for foot pain management - Neurologist previously seen for sleeping issues - Boil Off Machine Operator Cloth previously seen for fibromyalgia Patient Instructions - Follow up with a mammogram appointment prior to the surgeon's visit - Proceed for right knee X-ray at the desired facility - Continue with current medication management - Discuss neurological symptoms further if symptoms persist - Manage prediabetes with healthy diet and regular monitoring - Take tramadol as prescribed for pain relief f/u 4 wks Review of Systems General: No fever no chills neurological: No headaches no dizziness ear nose throat: No sore throat no hearing difficulty no ear pain cardiovascular: No syncope, no chest pain gastrointestinal: No nausea vomiting or diarrhea [facility] Medical History Abnormal chest x-ray Asthma BMI 32.0-32.9,adult Obesity Kidney stones Kidney stones, calcium oxalate Perioral dermatitis Muscle spasm Microscopic hematuria Hot flashes Vitamin D deficiency Fibromyalgia Osteoarthritis Chronic GERD Depression, major, recurrent Surgical History Hx of appendectomy History of esophagogastroduodenoscopy (EGD) H/O colonoscopy History of hysterectomy History of surgery Family History Father No problems noted. Mother Asthma Dementia Alzheimer's disease Paternal Aunt Lung cancer Breast cancer, Onset Age: 62 Brother No problems noted. Brother No problems noted. Brother No problems noted. Sister No problems noted. Sister No problems noted. Sister No problems noted. Paternal Aunt Breast cancer, Onset Age: 70 Other Mental health disorder Social History Household Members: Significant Other and Children Household Members Other:: 2 children Housing: House Are you a primary director career to a significant other at home: No Do you presently have visiting nurse or other home services: No Alcohol intake: never Patient Tobacco Use Status: Never used Tobacco e-Cigarette/Vaping Use: Never Used service: No Current occupational status: unemployed and disabled Cognitive needs: No Hearing needs: No Vision needs: Yes Female Reproductive History Menstrual Age of Menarche: 15 Questionnaire Thrive Questionnaire Date Thrive assessed: 10/27/24 OLI-7 AMB Questionnaire OLI-7 Date OLI - 7 assessed: 01/19/25 Source: Developed by Drs. Gatito Agustin, Catina Hunter, Adrien Liao and colleagues, with an educational kori from [employer]. Physical exam (Primary Care) Tobacco/Smoking Status: Tobacco use Status Tobacco use date assessed 01/19/25 05/13/25 10:36 Patient Tobacco Use Status Never used Tobacco 05/13/25 10:36 e-Cigarette/Vaping Use Never Used 05/13/25 10:36 Thrive Assessment: Date of Thrive Assessment Date Thrive assessed 10/27/24 05/13/25 10:36 Telehealth Telehealth Telehealth Platform: [facility] Location of provider rendering services: practice address Location of patient: address on file Patient Identification confirmed using: Name, : Yes Telehealth method: video Patient verbally consented to treatment: Yes Patient verbally consented to billing insurance company: Yes Patient informed of any privacy concerns related to visit: Yes Coding Level of Care Code Tele Est Pt Level 5 (45780) Diagnoses Polyarthralgia M25.50 Fibromyalgia M79.7 Bilateral plantar fasciitis M72.2 Paresthesia of lower extremity R20.2 Anxiety, generalized F41.1 Recurrent major depressive disorder, in partial remission F33.41 Active/Remission status: in partial remission Pre-diabetes R73.03 Primary osteoarthritis, unspecified site M19. Osteoarthritis location: unspecified site Osteoarthritis type: primary Chronic fatigue R53.82 Fatigue type: chronic, unspecified Time Spent (min) 40 Comment 30 face to face providing reassurance and discussing her medical problem, 10 coordination Assessment & Plan Assessment & Plan (1) Polyarthralgia: Code(s): M25.50 - Pain in unspecified joint Category: Medical (2) Fibromyalgia: Code(s): M79.7 - Fibromyalgia Category: Medical (3) Bilateral plantar fasciitis: Code(s): M72.2 - Plantar fascial fibromatosis Category: Medical (4) Paresthesia of lower extremity: Code(s): R20.2 - Paresthesia of skin Category: Medical (5) Anxiety, generalized: Code(s): F41.1 - Generalized anxiety disorder Category: Medical (6) Depression, major, recurrent: Code(s): F33.9 - Major depressive disorder, recurrent, unspecified Category: Medical Qualifiers: Active/Remission status: in partial remission Qualified Code(s): F33.41 - Major depressive disorder, recurrent, in partial remission (7) Pre-diabetes: Code(s): R73.03 - Prediabetes Category: Medical (8) Osteoarthritis: Code(s): M19.90 - Unspecified osteoarthritis, unspecified site Category: Medical Qualifiers: Osteoarthritis location: unspecified site Osteoarthritis type: primary Qualified Code(s): M19.91 - Primary osteoarthritis, unspecified site (9) Fatigue: Code(s): R53.83 - Other fatigue Category: Medical Qualifiers: Fatigue type: chronic, unspecified Qualified Code(s): R53.82 - Chronic fatigue, unspecified Plan History The patient is a 60 year old female presenting with concerns regarding mammograms, chronic foot pain, worsening knee pain, neurological symptoms, and prediabetes. Mammogram and Breast Lump: - The patient has been experiencing pain due to a lump in the breast, which makes undergoing a mammogram uncomfortable. - The lump has been present for a long period, and the patient is concerned about the mammography procedure spreading cancer due to pressure. - Despite initial reluctance, the patient is considering a mammogram after canceling a previous appointment to avoid radiation. - The patient has a scheduled visit with a general surgeon and needs the mammogram before this appointment. Chronic Foot Pain and Worsening Knee Pain: - The patient reports enduring significant foot pain for many years, which worsens after walking and causes difficulty standing and walking. - Despite seeing a ham rolling machine operator and being advised to pursue physical therapy and insoles, the patient feels the root cause hasn't been addressed. - The pain has escalated to involve the knees, particularly the right knee, making it difficult to recover from bending without assistance. - The patient wakes up at night due to severe knee pain and suspects inflammation, requesting an X-ray for further investigation. Neurological Symptoms (Numbness and Tingling): - The patient experiences tingling in the toes and fingers, with instances of numbness, suggesting possible neuropathy. - The patient reports these symptoms have worsened over the years, impacting daily life and leading to concerns about a neurological basis. - She is verbalizing resistance to undergoing nerve conduction studies due to concerns about pain from previous experiences. Prediabetes and Energy Levels: - The patient is described as prediabetic she has already seen Rhumatology in 2022 and work up has shown Fibromyalgia anxiety : taking medication for that Problem List - Breast lump - Chronic foot pain - Right knee pain - Tingling and numbness in extremities - Fibromyalgia - Osteoarthritis - Prediabetes Diagnostic results - Recent blood test in January showed fasting glucose of 85, HbA1c 5.6 (normal range) - Kidney stones: 4mm stone on right side, 3mm stones on left side within kidneys [place] of Care - General surgeon for breast lump evaluation - Director [employer] for foot pain management - Neurologist previously seen for sleeping issues - Boil Off Machine Operator Cloth previously seen for fibromyalgia Patient Instructions - Follow up with a mammogram appointment prior to the surgeon's visit - Proceed for right knee X-ray at the desired facility - Continue with current medication management - Discuss neurological symptoms further if symptoms persist - Manage prediabetes with healthy diet and regular monitoring - Take tramadol as prescribed for pain relief f/u 4 wks Orders: Orders XR knee RT 2V Today M25.561 - Pain in right knee Referrals Neurology Referral R20.2 - Paresthesia of skin Medications: Changed From tramadol 50 mg PO BID 15 days PRN 30 tabs 0RF pain G89.4 - Chronic pain syndrome, M46.1 - Sacroiliitis, not elsewhere classified, M47.816 - Spondylosis without myelopathy or radiculopathy, lumbar region, M53.3 - Sacrococcygeal disorders, not elsewhere classified, M54.16 - Radiculopathy, lumbar region To tramadol 50 mg PO BID PRN 60 tabs 0RF pain 30 days G89.4 - Chronic pain syndrome, M46.1 - Sacroiliitis, not elsewhere classified, M47.816 - Spondylosis without myelopathy or radiculopathy, lumbar region, M53.3 - Sacrococcygeal disorders, not elsewhere classified, M54.16 - Radiculopathy, lumbar region
== END 2025-05-13 10:55 | disposition home or self-care (01) ==
LOC: HO.HMCC 08:56
PROVIDERS: PCP Internal Medicine; Visit Provider Internal Medicine
DX: M25.50 Pain in unspecified joint (principal); M79.7 Fibromyalgia; M72.2 Plantar fascial fibromatosis; R20.2 Paresthesia of skin; F41.1 Generalized anxiety disorder; F33.41 Major depressive disorder, recurrent, in partial remission; R73.03 Prediabetes; M19.91 Primary osteoarthritis, unspecified site; R53.82 Chronic fatigue, unspecified

== ENCOUNTER → 2025-05-13 12:03 | Outpatient (BNV) | payer OTHER, SELFPAY | PROVIDERS: PCP Internal Medicine; Visit Provider Radiology Diagnostic Radiology | DX: M25.561 Pain in right knee (principal) | CPT/HCPCS: 73560 ==

== ENCOUNTER 2025-05-24 09:49 | Outpatient (REF) | payer OTHER, SELFPAY ==
--- OUTSIDE RECORDS SUMMARY | 2024-11-17 09:45 | XMS_ITS ---
Author Organization [facility] Address [address] [place] [address] Care Team Providers Care It Training Specialist Name Role Phone Elio MATHIS, Gaudencio Primary Care Provider Unavailabl Arianna Menjivar Unavailable [phone] Madison Cox Unavailable [phone] Medications Medication SIG (Take, Route, Frequency, Duration) [...] Active Encounters Encounter Location Date Provider Diagnosis [address] [address] 11/17/2024 Madison Cox Plan Of Treatment No Information Progress Notes * Lasha MALIKeDOB:[birth year] (60 yo F)Acc No.[id number]:11/17/2024 Progress Notes Patient: Janna CALLES Provider: Cesar Cox DPM :1965 A ge:59 Y S ex:Female Date:11/17/2024 Address:[address] [place] [address] [place], [id number] Pcp:Gaudencio Ballard MD Subjective: * Chief Complaints: [...] 0 11/17/2024 Generated for Sofi ayoub/Keren/Rhea on: 1 11:13 AM EDT
--- OUTSIDE RECORDS SUMMARY | 2025-03-22 05:30 | XMS_ITS ---
Author Organization [facility] Address [address] [place] [address] Care Team Providers Care Mortgage Originator Name Role Phone Elio MATHIS, Gaudencio Primary Care Provider UnavailArianna Estrella Unavailable [phone] Silvia Green Unavailable [phone] REASON FOR VISIT Seen Sooner Encounters Encounter Location Date Provider Diagnosis [address] [address] 03/22/2025 Silvia Green Plan Of Treatment No Information Progress Notes * Danyel MALIKOB:[birth year] (60 yo F)Acc No.[id number]:03/22/2025 Progress Note Patient: Gayle GODDARD Janna Provider: Ania Green DPM :1965 A ge:59 Y S ex:Female Date:03/22/2025 Address:[address] [place], [place] [phone] Pcp:Gaudencio Ballard MD Subjective: * Chief Complaints: [...] 03/22/2025 Generated for Sofi ayoub/Keren/Rosalbaitting on: 1 11:13 AM EDT
--- OUTSIDE RECORDS SUMMARY | 2025-05-24 11:14 | XMS_ITS | Patient Health Record ---
Author Organization [facility]y [facility] Address [address] [place] [address] Care Team Providers Care Staff Air Defense Officer Name Role Phone Elio MATHIS, [facility] Primary Care Provider UnavailArianna Estrella Unavailable [phone] [place] Cox Unavailable [phone] Silvia Green Unavailable [phone] Brock Ordonez Unavailable [phone] Allergies Allergen (clinical drug ingredient) Drug/Non Drug Allergy documented on EMR Reaction Allergy Type Onset Date Status trazodone Trazodone HCl heart palpitations Drug Allergy Active Latex Latex rash Allergy Active Penicillin Unknown Drug Allergy Active Reason For Referral No Information Medications Medication SIG (Take, Route, Frequency, Duration) Notes Start Date End Date Status Diclofenac Sodium 1 % as directed Shearing Shed Worker ally 4 times a day; Duration: 30 [...] Status W/U Status Risk Notes Problem Neuropathy (927247546) Neuropathy (G62.9) Active confirmed Problem Gout (35329792) Gout of right foot (M10.9) Active confirmed Rx drug management (4) Problem Plantar fascial fibromatosis (20057425) Plantar fasciitis, bilateral (M72.2) Active confirmed Vital Signs Heart Rate 80 /min 01/22/2025 Blood pressure diastolic 89 mm Hg 01/22/2025 Height 5ft in 03/05/2025 Blood pressure systolic 124 mm Hg 01/22/2025 Weight 176 lbs 03/05/2025 BMI 34.37 kg/m2 03/05/2025 Encounters Encounter Location Date Provider Diagnosis [facility] [address] [place] [address] 11/05/2024 Brock Ordonez Gout of right foot M10.9 and Pain in right toe(s) M79.[address] [address] 01/22/2025 Arianna Joshi Pain in right foot M79.671 ; Plantar fasciitis, bilateral M72.2 ; Calcaneal spur, right foot M77.31 ; Other myositis of right foot M60.871 ; Bursitis of right foot M77.51 ; Pain in left foot M79.672 ; Calcaneal spur, left foot M77.32 ; Other myositis of left foot M60.872 and Bursitis of left foot M77.[address] [address] 03/05/2025 Arianna Joshi Pain in right foot [...] G62.9 and 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[facility]NA [place] [facility] [address] 11/09/2024 [facility] [address] 11/09/2024 Brock Ordonez [address] [address] 11/17/2024 [facility] [address] [address] 03/05/2025 Ari[facility] [address] [address] 03/12/2025 Arianna Joshi [address] [address] 04/20/2025 Arianna Joshi Assessments Encounter Date Diagnosis [...] Insured Coverage Start Date Coverage End Date [facility] Claims [address] [place] [id number] [phone] [id number] Janna Hooper Self - patient is the insured Medical (General) History Medical History History ICD Code Anxiety Arthritis asthma Back,Hip,and Knee pain Fibromyalgia Reflux ( GERD) Chicken pox Surgical History Surgery Date(Month/Year) bladder suspension 2009, 2010, 2011 hysterectomy 2012, 2014, 2018 Hospitalization History Reason Date(Month/Year) [facility] 11/2024 [facility] MRI bilateral ankles 07/21/20
--- OUTSIDE RECORDS SUMMARY | 2025-05-24 11:14 | XMS_ITS | Clinical Summary ---
Author Organization [employer] Address [address] [place] [address] [address] [place] [address] Care Team Providers Care Associate Professor Of Mathematics Name Role Phone Unavailable Primary Care Provider [...] Description 05/31/2025 9:00 AM EDT Office Visit [facility] [address] [place], [place] [id number] Funmi Castillo [address] [place], [place] [phone] Health Maintenance Due Date Last Done Comments [...]
--- OUTSIDE RECORDS SUMMARY | 2025-05-24 11:14 | XMS_ITS | Clinical Summary ---
Author Organization [facility] Address [address] [place] [phone] Phone Care Team Providers Care Senior Radiation Therapist Name Role Phone Gaudencio Ballard MD Primary [...] Office Visit [facility] [address] [address] Dania Celaya ARNP [address] [address] Health Maintenance Due Date Last [...] 49 Years) Discontinued 04/17/2016 Insurance [facility] One Care Dual SNP ([id number]) [facility] One Care Dual SNP ([id number]) Care Teams Senior Radiation Therapist Relationship Specialty Start Date End Date Gaudencio Ballard MD [address] [place] [address] PCP - General Internal Medicine 12/12/22
--- OUTSIDE RECORDS SUMMARY | 2025-05-24 11:14 | XMS_ITS | Clinical Summary ---
Author Organization [employer] [facility] [employer] Address [address] [place] [address] Phone Care Team Providers Care Carousel Operator Name Role Phone Gaudencio Ballard MD Primary Care Provider [phone] Allergies Active Allergy Reactions Criticality Noted Date [...] 08/17/2005 Overview (07/21/2024): 08/26 42 hct Immunizations Immunization Administration Dates Next Due Pneumococcal conjugate 13 va lent (Prevnar 13, PCV13) 2mo and older 04/17/2016 Td Tetanus diptheria (Tdvax) 7yo and older 08/27 Td, Unspecified 08/27/2003 Tdap Tetanus diptheria acell ular pertussis (Boostrix; Adacel) 7yo and older 06/26/2012 Surgical History Surgery Date Site/Laterality Comments ESOPHAGOGASTRODUODENOSCOPY 01/21/07 PROCEDURE: [place] ESOPHAGOGASTRODUODENOSCOPY TRANSORAL DIAGNOSTIC; COMMENT: Normal PARTIAL HYSTERECTOMY 03/2010 PROCEDURE: [place] SUPRACERVICAL ABDL HYSTER W/WO RMVL TUBE OVARY; COMMENT: Da Dragan TLH with sacropexy, mesh urethral support OTHER SURGICAL HISTORY PROCEDURE: FEMALE SLING SYS W/WO MATRL OTHER SURGICAL HISTORY PROCEDURE: [place] RMVL PROSTC MATRL/MESH ABDL WALL FOR INFECTION BREAST SURGERY 2011 Right PROCEDURE: [place] UNLISTED PROCEDURE BREAST; COMMENT: rt cyst removed BREAST BIOPSY 2009 Right PROCEDURE: BX BREAST; PERC NEEDLE CORE [...] Health Maintenance Due Date Last Done Comments Colorectal Cancer Screening: Colonoscopy 1967 COVID-19 Vaccine (#1) 1972 Hepatitis B Vaccines (1 of 3 - 19+ 3-dose series) 1986 Zoster Vaccines (1 of 2) 1986 Pneumococcal Vaccine: 50+ Years (3 of 3 - PCV20 or PCV21) 08/20/2021 08/20/2016, 04/17/2016 Breast Cancer Screening 09/16/2021 09/16/19 20, 09/12/2018, 09/11/2017 HIV Screening 07/22/2022 Medicare Annual Wellness Visit [...] Group ID:ICO Type:Not on file Address: [address] [address] [address] Care Teams Carousel Operator Relationship Specialty Start Date End Date Gaudencio Ballard MD [address] [place] [address] PCP - General Internal Medicine 09/16/19
--- OUTSIDE RECORDS SUMMARY | 2025-05-24 11:14 | XMS_ITS | Clinical Summary ---
Author Organization [facility] Address [address] [place] [address] Care Team Providers Care Cash Processing Specialist Name Role Phone Margie Pham MD Primary Care Provider [phone] Allergies Active Allergy Reactions Criticality Noted Date [...] series) 2042 Medical Devices Implanted Type Area General Teller Device Identifier Shelf Expiration Date Model / Serial / Lot Mesh Pelvic Prolapse Polypropylene Y Shape [id number] [facility] - [id number] - [id number] Implanted:Qty: 1 on 10/13/2018 by Liat Sheikh MD at [facility] Mesh N/A: Vagina COLOPLAST 05/15/2021 [id number] / [id number] / [id number] Insurance [facility] Advance Directives Documents on File Type Date Recorded Patient Cooperative Extension Agent Expl anation Health Care Proxy 03/07/2021 * Full Code (Latest Code Status on File) Date Activated Date Inactivated Comments 10/13/2018 5:38 AM 10/14/2018 4:15 PM Healthcare Agents on File Name Relationship Healthcare Agent Relationship Communication Evan Hooper Spouse Healthcare Proxy - Primar y Lisa Biggs Daughter Healthcare Prox y - Alternative Care Teams Cash Processing Specialist Relationship Specialty Start Date End Date Margie Pham MD PCP - General 06/18/18
--- OUTSIDE RECORDS SUMMARY | 2025-05-24 11:14 | XMS_ITS | Clinical Summary ---
Author Organization [facility] Address [address] [place] [address] Care Team Providers Care Machine Featheredger And Reducer Name Role Phone Margie Pham MD Primary [...] age to complete this topic Care Teams Machine Featheredger And Reducer Relationship Specialty Start Date End Date Margie Pham MD PCP - General Internal Medicine 10/25/17
== END 2025-05-24 09:50 | disposition home or self-care (01) ==
LOC: HO.MAMMO 09:49
PROVIDERS: PCP Internal Medicine; Visit Provider Internal Medicine
DX: Z12.31 Encounter for screening mammogram for malignant neoplasm of breast (principal)
CPT/HCPCS: 77063; 77067

== ENCOUNTER → 2025-05-24 10:15 | Outpatient (BNV) | payer OTHER, SELFPAY | PROVIDERS: PCP Internal Medicine; Visit Provider Internal Medicine | DX: Z12.31 Encounter for screening mammogram for malignant neoplasm of breast (principal) | CPT/HCPCS: 77063; 77067 ==

== ENCOUNTER 2025-06-08 11:40 | Outpatient (REF) | payer OTHER, SELFPAY ==
--- OUTSIDE RECORDS SUMMARY | 2024-11-17 09:45 | XMS_ITS ---
Author Organization [facility] Address [address] [place] [address] Care Team Providers Care Volunteer Patient Representative Name Role Phone Elio MATHIS, Gaudencio Primary Care Provider Unavailabl Arianna Menjivar Unavailable [phone] Madison Cox Unavailable [phone] Medications Medication SIG (Take, Route, Frequency, Duration) [...] Active Encounters Encounter Location Date Provider Diagnosis [address] [address] 11/17/2024 Madison Cox Plan Of Treatment No Information Progress Notes * Lasha MALIKeDOB:[birth year] (60 yo F)Acc No.[id number]:11/17/2024 Progress Notes Patient: Janna CALLES Provider: Cesar Cox DPM :1965 A ge:59 Y S ex:Female Date:11/17/2024 Address:[address] [place] [address] [place], MAOA-[id number] Pcp:Gaudencio Ballard MD Subjective: * Chief Complaints: [...] 0 11/17/2024 Generated for Sofi ayoub/Keren/Rhea on: 03:57 PM EDT
--- OUTSIDE RECORDS SUMMARY | 2025-03-22 05:30 | XMS_ITS ---
Author Organization [facility] Address [address] [place] [address] Care Team Providers Care Wood Carver Name Role Phone Elio MATHIS, Gaudencio Primary Care Provider UnavailArianna Estrella Unavailable [phone] Silvia Green Unavailable [phone] REASON FOR VISIT Seen Sooner Encounters Encounter Location Date Provider Diagnosis [address] [address] 03/22/2025 Silvia Green Plan Of Treatment No Information Progress Notes * Danyel MALIKOB:[birth year] (60 yo F)Acc No.[id number]:03/22/2025 Progress Note Patient: Gayle GODDARD Janna Provider: Ania Green DPM :1965 A ge:59 Y S ex:Female Date:03/22/2025 Address:[address] [place], [place] [phone] Pcp:Gaudencio Ballard MD Subjective: * Chief Complaints: [...] DPM Date: 0 03/22/2025 Generated for Sofi ayoub/Keren/Rosalbaitting on: 1 03:57 PM EDT
[2025-06-08 14:45] LABS: Erythrocyte Sedimentation Rate 14 MM/HR (0-20)
[2025-06-08 15:02] LABS: Vitamin B12 523 pg/mL (200-900)
--- OUTSIDE RECORDS SUMMARY | 2025-06-08 15:58 | XMS_ITS | Patient Health Record ---
Author Organization [facility] Address [address] [place] [address] Care Team Providers Care Body Maker Machine Setter Name Role Phone Elio MATHIS, [facility] Primary Care Provider UnavailArianna Estrella Unavailable [phone] Madison Cox Unavailable [phone] Silvia Green Unavailable [phone] Brock Ordonez Unavailable [phone] Allergies Allergen (clinical drug ingredient) Drug/Non Drug Allergy documented on EMR Reaction Allergy Type Onset Date Status trazodone Trazodone HCl heart palpitations Drug Allergy Active Latex Latex rash Allergy Active Penicillin Unknown Drug Allergy Active Reason For Referral No Information Medications Medication SIG (Take, Route, Frequency, Duration) Notes Start Date End Date Status Diclofenac Sodium 1 % as directed Nutrition Assistant ally 4 times a day; Duration: 30 [...] Status W/U Status Risk Notes Problem Neuropathy (880152699) Neuropathy (G62.9) Active confirmed Problem Gout (36347842) Gout of right foot (M10.9) Active confirmed Rx drug management (4) Problem Plantar fascial fibromatosis (97314416) Plantar fasciitis, bilateral (M72.2) Active confirmed Vital Signs Heart Rate 80 /min 01/22/2025 Blood pressure diastolic 89 mm Hg 01/22/2025 Height 5ft in 03/05/2025 Blood pressure systolic 124 mm Hg 01/22/2025 Weight 176 lbs 03/05/2025 BMI 34.37 kg/m2 03/05/2025 Encounters Encounter Location Date Provider Diagnosis [facility] [address] [place] [address] 11/05/2024 Brock Ordonez Gout of right foot M10.9 and Pain in right toe(s) M79.[address] [address] 01/22/2025 Arianna Joshi Pain in right foot M79.671 ; Plantar fasciitis, bilateral M72.2 ; Calcaneal spur, right foot M77.31 ; Other myositis of right foot M60.871 ; Bursitis of right foot M77.51 ; Pain in left foot M79.672 ; Calcaneal spur, left foot M77.32 ; Other myositis of left foot M60.872 and Bursitis of left foot M77.[address] [address] 03/05/2025 Arianna Joshi Pain in right foot [...] G62.9 and 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EDNA [facility] [address] 11/09/2024 Borck Ordonez [facility] [address] 11/09/2024 Brock Ordonez [address] [address] 11/17/2024 [facility] [address] [address] 03/05/2025 [facility] [address] [address] 03/12/2025 Arianna Joshi [address] [address] 04/20/2025 Arianna Joshi Assessments Encounter Date Diagnosis [...] Insured Coverage Start Date Coverage End Date [facility] [employer] Claims [address] [place] [id number] Janna Hooper Self - patient is the insured Medical (General) History Medical History History ICD Code Anxiety Arthritis asthma Back,Hip,and Knee pain Fibromyalgia Reflux ( GERD) Chicken pox Surgical History Surgery Date(Month/Year) bladder suspension 2009, 2010, 2011 hysterectomy 2012, 2014, 2018 Hospitalization History Reason Date(Month/Year) [facility] [place] 11/2024 [facility] MRI bilateral ankles 07/21/20
[2025-06-08 16:10] LABS: Appearance Urine Clear; Glucose Urine UA Negative (Negative); PH 7.0 (5.0-9.0); Specific Gravity - Urine 1.015 (1.005-1.025); UMIC TRIGGER UACC YES
[2025-06-08 17:40] LABS: Alanine Aminotransferase 21 U/L (0-31); Albumin Level 4.4 g/dL (3.5-5.0); Alkaline Phosphatase 127 U/L (39-117); Anion Gap 12 (12-20); Aspartate Amino Transferase 26 U/L (5-31); Blood Urea Nitrogen 12 mg/dL (9-16); Calcium 9.4 mg/dL (8.4-10.2); Carbon Dioxide 25 mmol/L (22-29); Chloride 109 mmol/L (96-108); Cholesterol 261 mg/dL (<200); Estimated Glomerular Filt Rate > 60; HDL Cholesterol 78 mg/dL (>40); Magnesium 2.3 mg/dL (1.6-2.6); Potassium 4.0 mmol/L (3.3-5.1); Sodium 142 mmol/L (135-145); Total Protein 7.7 g/dL (6.5-8.0); Triglycerides 112 mg/dL (<150)
[2025-06-08 18:48] LABS: UACC Culture Trigger YES
[2025-06-12 18:04] LABS: Vitamin D 25-OH, D2 <4 ng/mL; Vitamin D 25-OH, D3 42 ng/mL; Vitamin D 25-OH, Total 42 ng/mL (30-100)
== END 2025-06-08 11:41 | disposition home or self-care (01) ==
LOC: HO.HMGCLDS 11:40
PROVIDERS: PCP Internal Medicine; Visit Provider Internal Medicine
DX: R30.0 Dysuria (principal); R25.2 Cramp and spasm; F41.1 Generalized anxiety disorder; R00.2 Palpitations; R73.03 Prediabetes; E55.9 Vitamin D deficiency, unspecified; M25.561 Pain in right knee; M25.562 Pain in left knee; G89.29 Other chronic pain; M79.7 Fibromyalgia; M72.2 Plantar fascial fibromatosis; E78.9 Disorder of lipoprotein metabolism, unspecified; E66.811 Obesity, class 1; E66.09 Other obesity due to excess calories; R31.29 Other microscopic hematuria; L72.9 Follicular cyst of the skin and subcutaneous tissue, unspecified; F41.8 Other specified anxiety disorders; M17.0 Bilateral primary osteoarthritis of knee; Z68.30 Body mass index [BMI] 30.0-30.9, adult; Z79.82 Long term (current) use of aspirin; Z79.899 Other long term (current) drug therapy
CPT/HCPCS: 36415; 80053; 80061; 81001; 82306; 82607; 83036; 83735; 84443; 85652; 86141; 87086; 99212

== ENCOUNTER 2025-06-08 11:40 | Outpatient (AMB) | payer OTHER, SELFPAY ==
[2025-06-08 11:48] VITALS: BP 110/72; PULSE 76; O2SAT 98
--- NOTE | 2025-06-08 11:48 | A.OFFPC_ITS ---
Vital Signs 06/08/25 11:48 Height 5 ft 4 in Weight 175 lb BMI 30.0 BP 110/72 Blood Pressure Location Lt brachial Position Sitting Pulse 76 Pulse Source Pulse Oximeter Pulse Oximetry (%) 98 Intake Visit Reasons: 3m f/u Allergies cat dander (cats) Allergy (Intermediate, Verified 06/08/25 11:50) Itchy Eyes and burning cigarette smoke Allergy (Intermediate, Verified 06/08/25 11:50) migraines latex Allergy (Intermediate, Verified 06/08/25 11:50) Rash trazodone Allergy (Intermediate, Verified 06/08/25 11:50) palpitations Penicillins Adverse Reaction (Intermediate, Verified 06/08/25 11:50) Abdominal Pain tamsulosin Allergy (Severe, Uncoded 02/10/25 10:46) Dizziness Medication List - Last Reconciled 06/08/25 by Gaudencio Ballard MD [Adult Sanitary Wipes 4 packs / month] albuterol sulfate 90 mcg/actuation 2 puffs inhalation Q6H PRN albuterol sulfate 2.5 mg (3 mL) inhalation QID PRN amitriptyline 10 mg PO BEDTIME cholecalciferol (vitamin D3) 25 mcg PO DAILY 90 days clindamycin phosphate 1% topical BID PRN disposable gloves (Disposable Latex-Free Gloves) Use As directed doxycycline monohydrate 100 mg PO Q12H gabapentin 300 mg PO BEDTIME 90 days lorazepam mg PO DAILY magnesium 250 mg PO BID metoprolol succinate ER mg PO DAILY nebulizers with supplies and all needed equipment, to use for updraft treatments pantoprazole 40 mg PO BID [Poise incontinence pads Requires poise due to allergies. NS] pyridoxine (vitamin B6) 100 mg PO DAILY [shoes for planter faciatis As directed] [suction grab bars As directed] tacrolimus 0.03% topical DAILY tramadol 50 mg PO BID PRN 30 days turmeric mg PO [Updraft machine tubing As directed] venlafaxine ER 150 mg PO BEDTIME 90 days Tobacco use date assessed: 01/19/25 Dental Screening Dental Screen Date: 02/05/25 HPI 3m f/u HPI Details History The patient is a 60-year-old female presenting with chronic cyst Rt Buttock with recurrent inflammation, and other medical concerns Chronic Abscess: - The patient reports recurring abscesse s despite ongoing dial buffer care. - The abscess is located at the right bu ttocks near the crease, described as very painful. - Recent treatment included a painful st eroid injection aimed at reducing inflammation. - The patient experienced near fainting after the injection. - Clindamycin gel is being used with not ed improvement. Lower Back Pain: - Patient has chronic lower back pain af fecting daily activities, notably walking. - Describes the pain as intense, with di fficulty in maintaining mobility. - History of September back X-ray indicat es multilevel spondylosis and arthritis. - taking Gabapentin Osteoarthritis: - Confirmed developing arthritis in the lower back based on prior imaging studies. - Seeking physical therapy and rheumatol ogy consultation for joint support and pain management. Heart Palpitations: - Reports episodes of tachycardia and pa lpitations. - Holter monitor in August suggested si nus rhythm with occasional tachycardia. - Follows with a facilities coordinator, reassured no significant arrhythmia detected. Foot Pain - Plantar Fasciitis: - Severe foot pain diagnosed as plantar fasciitis, ongoing for several months. - Physical therapy was recommended by a team leader surgery, but there was a delay in initiation. Fibromyalgia: - Experiencing significant pain sensitiv ity attributed to fibromyalgia. - Anticipates further care with consider ation of prior rheumatologic evaluation. Vitamin and Nutritional Concerns: - Reports low potassium and concern abou t overall vitamin balance. - Historically low vitamin D, supplement s are currently taken. Medical History: - Osteoarthritis - Fibromyalgia - Tachycardia - Plantar Fasciitis - Asthma - Prediabetes concern - Vit D deficiency (currently managed wi th supplements) Social History: - Lives with family, daughter assists [facility] transportation - Concerned about physical activity limi tations and impact on lifestyle - Reports significant pain affecting emo tional well-being - Attempts weight management with a 7-po und loss Problem List - Rt Buttock cyst - Lower Back Pain - Osteoarthritis - Plantar Fasciitis - Tachycardia - Fibromyalgia - Anxiety about Health Diagnostic results - Labs: Holter monitor in August indica cornelius sinus rhythm with occasional tachycardia. Previous potassium levels were normal; vitamin D levels were normal; B12 was normal. - Imaging: Back X-ray from September silviano cated multilevel spondylosis and evidence of arthritis. - Tests: Pending blood work for vitamin deficiencies, inflammation markers (CRP), and urinary analysis for potential UTI. [facility] of Care - Horn Player for skin abscesses - Community Outreach Specialist for palpitations - Otm Consultant for foot pain management - Referral for surgical consultation for abscess removal - Planned referral to automotive window tinter - Physical therapy for lower back pain a nd plantar fasciitis Plan - Chronic Cyst with recurrent abcess: Cl indamycin gel to be continued for ongoing management. Referral for surgical consult for potential removal. - Lower Back Pain and Osteoarthritis: In itiate physical therapy for joint strength, and discuss with a automotive window tinter for arthritis management. Encourage conservative treatment modalities to stabilize the condition. - Plantar Fasciitis: Acquire a physical therapy referral for foot management. Ensure the patient receives an order for the therapy at the next appointment. - Tachycardia: Continue cardiology follo w-up; reassure patient about the absence of life-threatening arrhythmias. - Fibromyalgia: Continue pain management strategies; discuss the multidisciplinary approach with a automotive window tinter. contine Gabapentine - Nutritional Support: Repeat blood work to assess potassium and other vitamin deficiencies; maintain current supplementation of vitamin D and B12. - Preventative Care: Schedule pneumonia 20 vaccination at the pharmacy or during follow-up visit. Review of Systems General: No fever no chills neurological: No headaches no dizziness ear nose throat: No sore throat no hearing difficulty no ear pain cardiovascular: No syncope, no chest pain, gastrointestinal: No nausea vomiting or diarrhea endocrine: No polyuria polydipsia no heat intolerance genitourinary: No dysuria skin: No new complaints Physical Exam general: No acute distress, but patient reports feeling drowsy due to gabapentin. HEENT: No acute findings neck: Supple respiratory system: Able to talk in full sentences, no audible wheeze, no stridor cardiovascular: S1-S2 RRR, gastrointestinal: No pain extremities: No new findings,. CARAMEL CUTTER HAND: Alert, awake, oriented x3, motor sensory intact skin: Normal turgor, inflamed cyst on the right side of the buttocks,.no fluctuation felt today, firm to touch [facility] Medical History Abnormal chest x-ray Asthma BMI 32.0-32.9,adult Obesity Kidney stones Kidney stones, calcium oxalate Perioral dermatitis Muscle spasm Microscopic hematuria Hot flashes Vitamin D deficiency Fibromyalgia Osteoarthritis Chronic GERD Depression, major, recurrent Surgical History Hx of appendectomy History of esophagogastroduodenoscopy (EGD) H/O colonoscopy History of hysterectomy History of surgery Family History Father No problems noted. Mother Asthma Dementia Alzheimer's disease Paternal Aunt Lung cancer Breast cancer, Onset Age: 62 Brother No problems noted. Brother No problems noted. Brother No problems noted. Sister No problems noted. Sister No problems noted. Sister No problems noted. Paternal Aunt Breast cancer, Onset Age: 70 Other Mental health disorder Social History Household Members: Significant Other and Children Household Members Other:: 2 children Housing: House Are you a primary healthcare account manager to a significant other at home: No Do you presently have visiting nurse or other home services: No Alcohol intake: never Patient Tobacco Use Status: Never used Tobacco e-Cigarette/Vaping Use: Never Used service: No Current occupational status: unemployed and disabled Cognitive needs: No Hearing needs: No Vision needs: Yes Female Reproductive History Menstrual Age of Menarche: 15 Questionnaire Thrive Questionnaire Date Thrive assessed: 10/27/24 I am a: Patient What is your living situation today?: I have a steady place to live Within the past 12 months, did the food you bought not last and you didn't have the money to get more?: Never true Within the past 12 months, did you worry whether your food would run out before you got money to buy more?: Never true Do you have trouble paying for medicines?: No Do you have trouble getting transportation to medical appointments?: No Do you have trouble paying your heating and electricity bill?: No Do you have trouble taking care of your child, family member or friend?: No Do you have trouble with day-to-day activities such as bathing, preparing meals, shopping, managing finances, etc.?: I choose not to answer this question Are you currently unemployed and looking for a job?: Yes Are you interested in more education?: No Please select the resources that you would like help with: None Currently or been in a relationship where the following occur: No concerns reported THRIVE Score: 0 OLI-7 AMB Questionnaire OLI-7 Date OLI - 7 assessed: 01/19/25 Source: Developed by Drs. Gatito Agustin, Catina Hunter, Adrien Liao and colleagues, with an educational kori from [employer]. Physical exam (Primary Care) Vital Signs: Last Vital Signs Pulse 76 06/08/25 11:48 BP 110/72 06/08/25 11:48 Pulse Ox 98 06/08/25 11:48 BMI result Body Mass Index 30.0 Tobacco/Smoking Status: Tobacco use Status Tobacco use date assessed 01/19/25 06/08/25 11:51 Patient Tobacco Use Status Never used Tobacco 06/08/25 11:51 e-Cigarette/Vaping Use Never Used 06/08/25 11:51 Thrive Assessment: Date of Thrive Assessment Date Thrive assessed 10/27/24 06/08/25 11:51 Currently or been in a relationship where the following occur: No concerns reported Coding Level of Care Code Est Pt Level 5 (63672) Diagnoses Cyst of buttocks L72.9 Anxiety about health F41.8 Fibromyalgia M79.7 Heart palpitations R00.2 Primary osteoarthritis of both knees M17.0 Osteoarthritis type: primary Cramping of hands R25.2 Pre-diabetes R73.03 Bilateral plantar fasciitis M72.2 Class 1 obesity due to excess calories with serious comorbidity and body mass index (BMI) of 31.0 to 31.9 in adult E66.811; E66.09; Z68.31 Body mass index: BMI 31.0-31.9 Obesity classification: adult class 1 (BMI 30 - 34.9) Serious obesity comorbidity presence: with serious comorbidity Microscopic hematuria R31.29 Vitamin D deficiency E55.9 Time Spent (min) 40 Comment reviewing chart/labs/face to face/ coordination of care Assessment & Plan Assessment & Plan (1) Cyst of buttocks: Code(s): L72.9 - Follicular cyst of the skin and subcutaneous tissue, unspecified Category: Medical (2) Anxiety about health: Code(s): F41.8 - Other specified anxiety disorders Category: Medical (3) Fibromyalgia: Code(s): M79.7 - Fibromyalgia Category: Medical (4) Heart palpitations: Code(s): R00.2 - Palpitations Category: Medical (5) Osteoarthritis of knees, bilateral: Code(s): M17.0 - Bilateral primary osteoarthritis of knee Category: Medical Qualifiers: Osteoarthritis type: primary Qualified Code(s): M17.0 - Bilateral primary osteoarthritis of knee (6) Cramping of hands: Code(s): R25.2 - Cramp and spasm Category: Medical (7) Pre-diabetes: Code(s): R73.03 - Prediabetes Category: Medical (8) Bilateral plantar fasciitis: Code(s): M72.2 - Plantar fascial fibromatosis Category: Medical (9) Obesity due to excess calories: Code(s): E66.09 - Other obesity due to excess calories Category: Medical Qualifiers: Body mass index: BMI 31.0-31.9 Obesity classification: adult class 1 (BMI 30 - 34.9) Serious obesity comorbidity presence: with serious comorbidity Qualified Code(s): E66.811 - Obesity, class 1; E66.09 - Other obesity due to e xcess calories; Z68.31 - Body mass index [BMI] 31.0-31.9, adult (10) Microscopic hematuria: Code(s): R31.29 - Other microscopic hematuria Category: Medical (11) Vitamin D deficiency: Code(s): E55.9 - Vitamin D deficiency, unspecified Category: Medical Plan Chronic Abscess: - The patient reports recurring abscesses despite ongoing dial buffer care. - The abscess is located at the right buttocks near the crease, described as very painful. - Recent treatment included a painful steroid injection aimed at reducing inflammation. - The patient experienced near fainting after the injection. - Clindamycin gel is being used with noted improvement. Lower Back Pain: - Patient has chronic lower back pain affecting daily activities, notably walking. - Describes the pain as intense, with difficulty in maintaining mobility. - History of September back X-ray indicates multilevel spondylosis and arthritis. - taking Gabapentin Osteoarthritis: - Confirmed developing arthritis in the lower back based on prior imaging studies. - Seeking physical therapy and rheumatology consultation for joint support and pain management. Heart Palpitations: - Reports episodes of tachycardia and palpitations. - Holter monitor in August suggested sinus rhythm with occasional tachycardia. - Follows with a facilities coordinator, reassured no significant arrhythmia detected. Foot Pain - Plantar Fasciitis: - Severe foot pain diagnosed as plantar fasciitis, ongoing for several months. - Physical therapy was recommended by a team leader surgery, but there was a delay in initiation. Fibromyalgia: - Experiencing significant pain sensitivity attributed to fibromyalgia. - Anticipates further care with consideration of prior rheumatologic evaluation. Vitamin and Nutritional Concerns: - Reports low potassium and concern about overall vitamin balance. - Historically low vitamin D, supplements are currently taken. Medical History: - Osteoarthritis - Fibromyalgia - Tachycardia - Plantar Fasciitis - Asthma - Prediabetes concern - Vit D deficiency (currently managed with supplements) Social History: - Lives with family, daughter assists with transportation - Concerned about physical activity limitations and impact on lifestyle - Reports significant pain affecting emotional well-being - Attempts weight management with a 7-pound loss Problem List - Rt Buttock cyst - Lower Back Pain - Osteoarthritis - Plantar Fasciitis - Tachycardia - Fibromyalgia - Anxiety about Health Diagnostic results - Labs: Holter monitor in August indicated sinus rhythm with occasional tachycardia. Previous potassium levels were normal; vitamin D levels were normal; B12 was normal. - Imaging: Back X-ray from September indicated multilevel spondylosis and evidence of arthritis. - Tests: Pending blood work for vitamin deficiencies, inflammation markers (CRP), and urinary analysis for potential UTI. [place] of Care - Horn Player for skin abscesses - Community Outreach Specialist for palpitations - Otm Consultant for foot pain management - Referral for surgical consultation for abscess removal - Planned referral to automotive window tinter - Physical therapy for lower back pain and plantar fasciitis Plan - Chronic Cyst with recurrent abcess: Clindamycin gel to be continued for ongoing management. Referral for surgical consult for potential removal. - Lower Back Pain and Osteoarthritis: Initiate physical therapy for joint strength, and discuss with a automotive window tinter for arthritis management. Encourage conservative treatment modalities to stabilize the condition. - Plantar Fasciitis: Acquire a physical therapy referral for foot management. Ensure the patient receives an order for the therapy at the next appointment. - Tachycardia: Continue cardiology follow-up; reassure patient about the absence of life-threatening arrhythmias. - Fibromyalgia: Continue pain management strategies; discuss the multidisciplinary approach with a automotive window tinter. contine Gabapentine - Nutritional Support: Repeat blood work to assess potassium and other vitamin deficiencies; maintain current supplementation of vitamin D and B12. - Preventative Care: Schedule pneumonia 20 vaccination at the pharmacy or during follow-up visit. Orders: Orders PT Evaluation and Treatment Today M17.0 - Bilateral primary osteoarthritis of knee Comprehensive Met. Panel Today E55.9 - Vitamin D deficiency, unspecified, F41.1 - Generalized anxiety disorder, R00.2 - Palpitations, R25.2 - Cramp and spasm, R73.03 - Prediabetes Hemoglobin A1c Today E55.9 - Vitamin D deficiency, unspecified, F41.1 - Generalized anxiety disorder, R00.2 - Palpitations, R25.2 - Cramp and spasm, R73.03 - Prediabetes Erythrocyte Sedimentation Rate Today G89.29 - Other chronic pain, M25.561 - Pain in right knee, M25.562 - Pain in left knee, M72.2 - Plantar fascial fibromatosis, M79.7 - Fibromyalgia Magnesium Today E55.9 - Vitamin D deficiency, unspecified, E66.09 - Other obesity due to excess calories, E66.811 - Obesity, class 1, E78.9 - Disorder of lipoprotein metabolism, unspecified, R00.2 - Palpitations, R31.29 - Other microscopic hematuria, R73.03 - Prediabetes, Z68.31 - Body mass index [BMI] 31.0-31.9, adult UA CC w/rflx Micro + Cult Today E55.9 - Vitamin D deficiency, unspecified, E66.09 - Other obesity due to excess calories, E66.811 - Obesity, class 1, E78.9 - Disorder of lipoprotein metabolism, unspecified, R00.2 - Palpitations, R31.29 - Other microscopic hematuria, R73.03 - Prediabetes, Z68.31 - Body mass index [BMI] 31.0-31.9, adult TSH reflex Free T4 Today E55.9 - Vitamin D deficiency, unspecified, F41.1 - Generalized anxiety disorder, R00.2 - Palpitations, R25.2 - Cramp and spasm, R73.03 - Prediabetes CRP High Sensitivity Today G89.29 - Other chronic pain, M25.561 - Pain in right knee, M25.562 - Pain in left knee, M72.2 - Plantar fascial fibromatosis, M79.7 - Fibromyalgia Lipid Panel Today E55.9 - Vitamin D deficiency, unspecified, E66.09 - Other obesity due to excess calories, E66.811 - Obesity, class 1, E78.9 - Disorder of lipoprotein metabolism, unspecified, R00.2 - Palpitations, R31.29 - Other microscopic hematuria, R73.03 - Prediabetes, Z68.31 - Body mass index [BMI] 31.0-31.9, adult Vitamin D 25-OH (D2 and D3) Today E55.9 - Vitamin D deficiency, unspecified, E66.09 - Other obesity due to excess calories, E66.811 - Obesity, class 1, E78.9 - Disorder of lipoprotein metabolism, unspecified, R00.2 - Palpitations, R31.29 - Other microscopic hematuria, R73.03 - Prediabetes, Z68.31 - Body mass index [BMI] 31.0-31.9, adult Vitamin B12 Today E55.9 - Vitamin D deficiency, unspecified, E66.09 - Other obesity due to excess calories, E66.811 - Obesity, class 1, E78.9 - Disorder of lipoprotein metabolism, unspecified, R00.2 - Palpitations, R31.29 - Other microscopic hematuria, R73.03 - Prediabetes, Z68.31 - Body mass index [BMI] 31.0-31.9, adult Referrals General Surgery Referral L72.9 - Follicular cyst of the skin and subcutaneous tissue, unspecified
--- OUTSIDE RECORDS SUMMARY | 2025-06-08 15:11 | XMS_ITS | Clinical Summary ---
Author Organization [facility] Address [address] [place] [address] Care Team Providers Care Fraternity Adviser Name Role Phone Margie Pham MD Primary Care Provider [phone] Allergies Active Allergy Reactions Criticality Noted [...] age to complete this topic Care Teams Fraternity Adviser Relationship Specialty Start Date End Date Margie Pham MD PCP - General Internal Medicine 10/25/17
--- OUTSIDE RECORDS SUMMARY | 2025-06-08 15:11 | XMS_ITS | Clinical Summary ---
Author Organization [facility] Address [address] [place] [id number] Phone Care Team Providers Care Property Disposal Manager Name Role Phone Gaudencio Ballard MD Primary Care Provider [phone] Allergies Active Allergy Reactions Criticality Noted Date [...] Office Visit [facility] [address] [phone] Dania Celaya ARNP [address] [phone] Health Maintenance Due Date Last [...] to 49 Years) Discontinued 04/17/2016 Insurance [facility] One Care Dual SNP ([id number]) [facility] One Care Dual SNP ([id number]) Care Teams Property Disposal Manager Relationship Specialty Start Date End Date Gaudencio Ballard MD [address] [place] [phone] PCP - General Internal Medicine 12/12/22
--- OUTSIDE RECORDS SUMMARY | 2025-06-08 15:11 | XMS_ITS | Clinical Summary ---
Author Organization [facility] Address [address] [place] [address] Care Team Providers Care Coin Teller Name Role Phone Margie Pham MD Primary Care Provider [phone] Allergies Active Allergy Reactions Criticality Noted Date [...] and Follow-Up 08/19/2024 Social Drivers of Health Ghaad ual Screening 08/19/2024 Influenza Vaccine (#1) 2025 DTaP,Tdap,and Td Vaccines (3 - Td or Tdap) 01/16/2029 01/16/2019, 06/26/2012, 08/27/2003 RSV Vaccine (60+ years old a nd patients) (1 - 1-dose 75+ series) 2042 Medical Devices Implanted Type Area Non Profit Director Device Identifier Shelf Expiration Date Model / Serial / Lot Mesh Pelvic Prolapse Polypropylene Y Shape [id number] [facility] [employer] - [id number] - [id number] Implanted:Qty: 1 on 10/13/2018 by Liat Sheikh MD at [facility] Mesh N/A: Vagina COLOPLAST 05/15/2021 [id number] / [id number] / [id number] Insurance [facility] Advance Directives Documents on File Type Date Recorded 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
--- OUTSIDE RECORDS SUMMARY | 2025-06-08 15:11 | XMS_ITS | Clinical Summary ---
Author Organization [employer] [facility] Address [address] [place] [address] 7 [place] [address] Care Team Providers Care Surveillance Sensor Operator Name Role Phone Unavailable Primary Care Provider Unavailabl e Allergies Active Allergy Reactions Criticality Noted Date Comments Penicillins 04/11/2023 Tamsulosin 04/11/2023 Tramadol Headache,Other 03/25/2014 Vomiting,nausea,shaking Trazodone Other,Palpitations High 09/26/2020 Other reaction(s): heart palpitations Medications gabapentin (Neurontin) 300 MG capsule gabapentin 300 mg capsule 8 Active doxycycline (Adoxa) 100 MG tablet Active albuterol 108 (90 Base) MCG/ACT inhaler Inhale 2 Puffs into the lungs every 4 hours as needed for Cough or Wheezing. 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 presybeterian (Primary Dx); Bruxism 05/31/2025 Travel from Last 3 Months Social History Tobacco Use Types Packs/Day Years Used Date Smoking Tobacco: Never Smokeless Tobacco: Never Tobacco Cessation:Counseling Given: Not Answered Comments Unknown Sex and Gender Information Value Date Recorded Sex Assigned at Female 02/01/2025 2:35 PM EDT Legal Sex Female 2:33 PM EDT Gender Identity Female 02/01/2025 2:35 PM EDT Sexual Orientation Straight 02/01/2025 2: 35 PM EDT Last Filed Vital Signs Vital Sign Reading Time Taken Comments Blood Pressure 108/70 05/31/2025 9:09 AM EDT Pulse - - Temperature - - Respiratory Rate - - Oxygen Saturation - - Inhaled Oxygen Concentration - - Weight - - Height - - Body Mass Index - - Plan of Treatment Upcoming Encounters Date Type Department Care Team (Late st Contact Info) Description 07/05/2025 11:00 AM EST Office Visit [facility] ADULT DENTAL [address] [place] [address] Bobby Ash, DMD [address] [place] [address] Health Maintenance Due Date Last Done Comments CT Colonography 1967 Colonoscopy 1967 Colorectal Cancer Screening 1967 Depression Screening 1967 FIT DNA/Cologuard 1967 FIT 1967 FOBT 1967 HIV Screening 1967 SDOH Screening 1967 Sigmoidoscopy 1967 Disability Screening 1967 Alcohol/Substance Use Screening 1979 Hepatitis C Screening 1985 Hepatitis B Vaccines (1 of 3 - 19+ 3-dose series) 1986 Pap Smear 1988 Cervical Cancer Screening 1997 HPV/Cotest 1997 Mammogram 2007 Pneumococcal Vaccine: 50+ Years (2 of 2 - PPSV23) 06/12/2016 04/17/2016 Zoster Vaccines (1 of 2) 2017 DTaP/Tdap/Td Vaccines (4 - Td or Tdap) 06/26/2022 06/26/2012, 08/27/2003, 08/27/2003, Additional history exists COVID-19 Vaccine ( - season) 2025 Influenza Vaccine (#1) 2025 Dental Oral Exam 11/30/2025 05/31/2025 Dental Prophylaxis 11/30/2025 05/31/2025 Tobacco Screening 05/31/2026 05/31/2025 Dental X-Ray: Bitewings 06/01/2026 05/31/2025 Dental X-Ray: Full Mouth 06/01/2028 05/31/2025 RSV Patients and Patients Aged 60 years or older (1 - [...] Procedure Name Priority Date/Time Associated Diagnosis Comments COMPREHENSIVE ORAL EVALUATION - NEW OR ESTABLISHED PATIENT Routine 05/31/2025 9:00 AM EDT Bruxism Secondary dental caries associated with failed or defective dental presybeterian CASE PRESENTATION, DETAILED AND EXTENSIVE TREATMENT PLANNING Routine 05/31/2025 9:00 AM EDT Bruxism Secondary dental caries associated with failed or defective dental presybeterian PROPHYLAXIS - ADULT Routine 05/31/2025 9 :00 AM EDT Bruxism Secondary dental caries associated with failed or defective dental presybeterian INTRAORAL - COMPLETE SERIES OF RADIOGRAPHIC IMAGES Routine 05/31/2025 9:00 AM EDT Bruxism Secondary dental caries associated with failed or defective dental presybeterian 5 B(V) COMPOSITE FILLING Routine 025 12:00 AM EDT 10 L AMALGAM FILLING Routine 05/31/2025 12:00 AM EDT 30 JUAN AMALGAM FILLING Routine 05/31/2025 12:00 AM EDT 31 JUAN AMALGAM FILLING Routine 05/31/2025 12:00 AM EDT 32 JUAN AMALGAM FILLING Routine 05/31/2025 12:00 AM EDT 19 JUAN AMALGAM FILLING Routine 05/31/2025 12:00 AM EDT 18 JUNA AMALGAM FILLING Routine 05/31/2025 12:00 AM EDT 17 JUAN AMALGAM FILLING Routine 05/31/2025 12:00 AM EDT 16 O AMALGAM FILLING Routine 05/31/2025 12:00 AM EDT 15 O AMALGAM FILLING Routine 05/31/2025 12:00 AM EDT 2 O AMALGAM FILLING Routine 05/31/2025 1 2:00 AM EDT 1 O AMALGAM FILLING Routine 05/31/2025 1 2:00 AM EDT 14 EXTRACTION Routine 05/31/2025 12:00 AM EDT from Last [address] [place] [address] [address]
== END 2025-06-08 12:23 | disposition home or self-care (01) ==
LOC: HO.HMCC 11:42
PROVIDERS: PCP Internal Medicine; Visit Provider Internal Medicine
DX: R00.2 Palpitations (principal); L72.9 Follicular cyst of the skin and subcutaneous tissue, unspecified; F41.8 Other specified anxiety disorders; M79.7 Fibromyalgia; M17.0 Bilateral primary osteoarthritis of knee; R25.2 Cramp and spasm; R73.03 Prediabetes; M72.2 Plantar fascial fibromatosis; E66.811 Obesity, class 1; E66.09 Other obesity due to excess calories; Z68.31 Body mass index [BMI] 31.0-31.9, adult; R31.29 Other microscopic hematuria

== ENCOUNTER 2025-06-09 13:19 | Outpatient (AMB) | payer OTHER, SELFPAY ==
--- NOTE | 2025-06-09 13:26 | MHC.OFFVIS ---
Vital Signs 06/09/25 13:27 Height 5 ft 4 in Weight 175 lb BMI 30.0 Intake Visit Reasons: Follow Up bilateral plantar fasciitis Intake Note: Janna is a 60 year old female who presents to the office today for a 1 month follow up bilateral plantar fasciitis. At last visit pt was given a splint to wear at night time and was referred to physical therapy. Pt states the splint at night is somewhat helpful especially to help stretch. Pt states she feels like the OTC inserts for her feet are not helpful. PT has not called her but states she will be calling [facility] since she is an established pt already. Allergies cat dander (cats) Allergy (Intermediate, Verified 06/09/25 13:27) Itchy Eyes and burning cigarette smoke Allergy (Intermediate, Verified 06/09/25 13:27) migraines latex Allergy (Intermediate, Verified 06/09/25 13:27) Rash trazodone Allergy (Intermediate, Verified 06/09/25 13:27) palpitations Penicillins Adverse Reaction (Intermediate, Verified 06/09/25 13:27) Abdominal Pain tamsulosin Allergy (Severe, Uncoded 06/09/25 13:27) Dizziness HPI HPI Follow Up bilateral plantar fasciitis: Details: The patient is a 60-year-old female with past medical history including fibromyalgia, lumbar radiculopathy, osteoarthritis who returns 1 month follow up for chronic bilateral heel pain. She has been using the night splint, particularly throughout the day when she is sitting and resting. She purchased the orthotics that were recommended at the last visit however she finds minimal relief. She is still walking on her treadmill for several miles. Patient notes a history of a cortisone injection to her heel which caused severe pain afterwards. History: The patient reports a burning sensation in the bottom of her feet, which intensifies after resting/sitting for a prolonged period of time and then getting up to walk. The pain is severe enough to cause limping and is primarily located in the heel, but has recently extended to the toes and occasionally radiates to her calf. This condition has persisted for over five years, despite attempts at management, including stretching exercises and injections. The patient has tried various interventions, including the use of supportive footwear and inserts, but reports limited relief. She has also used a massage machine and frozen water bottle stretches to alleviate symptoms. She received a night splint for right lower extremity from her other hydraulic oil tool operator. The patient has a history of fibromyalgia and arthritis, which may exacerbate her symptoms. She has undergone six surgeries in the past, leading to her current disabled status. Despite these challenges, she remains active. Surgical History: - Six unspecified surgeries leading to disability status Social History: - Employment: Currently not working due to disability status - Exercise: Engages in elliptical workouts, previously used treadmill but stopped due to pain PFSH Medical History Abnormal chest x-ray Asthma BMI 32.0-32.9,adult Obesity Kidney stones Kidney stones, calcium oxalate Perioral dermatitis Muscle spasm Microscopic hematuria Hot flashes Vitamin D deficiency Fibromyalgia Osteoarthritis Chronic GERD Depression, major, recurrent Surgical History Hx of appendectomy History of esophagogastroduodenoscopy (EGD) H/O colonoscopy History of hysterectomy History of surgery Family History Father No problems noted. Mother Asthma Dementia Alzheimer's disease Paternal Aunt Lung cancer Breast cancer, Onset Age: 62 Brother No problems noted. Brother No problems noted. Brother No problems noted. Sister No problems noted. Sister No problems noted. Sister No problems noted. Paternal Aunt Breast cancer, Onset Age: 70 Other Mental health disorder Social History Household Members: Significant Other and Children Household Members Other:: 2 children Housing: House Are you a primary dialysis patient care technician to a significant other at home: No Do you presently have visiting nurse or other home services: No Alcohol intake: never Patient Tobacco Use Status: Never used Tobacco e-Cigarette/Vaping Use: Never Used service: No Current occupational status: unemployed and disabled Cognitive needs: No Hearing needs: No Vision needs: Yes Female Reproductive History Menstrual Age of Menarche: 15 Review of Systems Const All systems reviewed & are unremarkable except as noted in HPI and below Physical Exam Vital Signs: BMI result Body Mass Index 30.0 Extrem Other: *Bilateral Lower Extremity Focused Exam Vascular: DP/PT 2/4, CFT less than 3 seconds all digits, temperature gradient warm to cool, no pedal edema. Derm: No ecchymosis, no open wounds or lacerations. No clinical signs of infection. Neuro: Protective sensation grossly intact to bilateral lower extremities. Negative Tinel sign. MSK: Decreased but moderate tenderness on palpation along the medial calcaneal tubercle bilateral heels. No pain or tenderness along the plantar fascial bands, however there are small fibromas present within the medial plantar fascia band of the right foot. Right Ankle dorsiflexion 5 degrees on knee extension right improved, 7-8 degrees on knee flexion. Left ankle dorsiflexion 5 degrees on knee extension, 7-8 degrees on knee flexion. Moderate arch bilaterally. Assessment & Plan Assessment & Plan (1) Bilateral plantar fasciitis: Code(s): M72.2 - Plantar fascial fibromatosis Category: Medical Plan: Discussed etiology of the patient's foot pain. Differential diagnosis includes plantar fasciitis, neuritis, tendinitis. Patient educated on the nature and etiology of plantar fasciitis, which involves inflammation and microtearing of the plantar fascia due to repetitive stress and overuse. Referred for bilateral foot x-rays Instructed to start physical therapy. Patient states she will begin PT at her previous office/center since she was unable to make an appointment [place] [facility] Continue night splint Rx Celebrex Medrol dose pack was ordered however the patient was called shortly after the visit after a chart review which showed she has cysts/abscesses she is being treated for. It was explained that the steroid dose pack would likely worsen her abscess/infection and thus she was instructed not to order picker or take the medication. Follow up in 1 month. (2) Achilles tendinitis of both lower extremities: Code(s): M76.61 - Achilles tendinitis, right leg; M76.62 - Achilles tendinitis, left leg Category: Medical Plan: Referred to physical therapy Orders: Orders XR Foot Jacques 3V Today M72.2 - Plantar fascial fibromatosis Medications: New celecoxib (Celebrex) Take one tablet twice a day PRN pain. 200 mg PO BID PRN 30 caps 0RF plantar fasciitis M72.2 - Plantar fascial fibromatosis methylprednisolone (Medrol (Melo)) Take 6 tablets on day 1, 5 tablets on day 2, 4 tablets on day 3, 3 tablets on day 4, 2 tablets on day 5, and 1 tablet on day 6. 4 mg PO PER PKG DIR 21 ea 0RF fasciitis M72.2 - Plantar fascial fibromatosis Coding Level of Care Code Est Pt Level 3 (52359) Diagnoses Bilateral plantar fasciitis M72.2 Achilles tendinitis of both lower extremities M76.61; M76.62 Time Spent (min) 30
--- OUTSIDE RECORDS SUMMARY | 2025-06-09 18:48 | XMS_ITS | Clinical Summary ---
Author Organization [facility] Address [address] [address] Phone Care Team Providers Care Oil Field Roustabout Name Role Phone Gaudencio Ballard MD Primary Care Provider [phone] Allergies Active Allergy Reactions Criticality Noted Date [...] Office Visit [facility] [address] [address] Dania Celaya ARNP [address] [address] Health Maintenance Due Date Last [...] (6 to 49 Years) Discontinued 04/17/2016 Insurance [facility] One Care Dual SNP ([id number]) [facility] One Care Dual SNP ([id number]) Care Teams Oil Field Roustabout Relationship Specialty Start Date End Date Gaudencio Ballard MD [address] [place] [address] PCP - General Internal Medicine 12/12/22
--- OUTSIDE RECORDS SUMMARY | 2025-06-09 18:48 | XMS_ITS | Clinical Summary ---
Author Organization [employer] [facility] Address [address] [place] [address] 7 [place] [address] Care Team Providers Care Technician Semiconductor Development Name Role Phone Unavailable Primary Care Provider [...] Description 05/31/2025 9:00 AM EDT Office Visit [facility] ADULT DENTAL [address] [place] [address] Funmi Castillo Secondary dental caries associated with failed or defective dental mandaen (Primary Dx); Bruxism 05/31/2025 Travel from Last [...] Description 07/05/2025 11:00 AM EST Office Visit [facility] ADULT DENTAL [address] [place] [address] Bobby Ash, DMD [address] [place] [address] Health Maintenance Due Date Last Done Comments [...] caries associated with failed or defective dental mandaen CASE PRESENTATION, DETAILED AND EXTENSIVE TREATMENT PLANNING Routine 05/31/2025 9:00 AM EDT Bruxism Secondary dental caries associated with failed or defective dental mandaen PROPHYLAXIS - ADULT Routine 05/31/2025 9 :00 AM EDT Bruxism Secondary dental caries associated with failed or defective dental mandaen INTRAORAL - COMPLETE SERIES OF RADIOGRAPHIC IMAGES Routine 05/31/2025 9:00 AM EDT Bruxism Secondary dental caries associated with failed or defective dental mandaen 5 B(V) COMPOSITE FILLING Routine 025 12:00 AM EDT 10 L AMALGAM FILLING Routine 05/31/2025 12:00 AM EDT 30 JUAN AMALGAM FILLING Routine 05/31/2025 12:00 AM EDT 31 JUAN AMALGAM FILLING Routine 05/31/2025 12:00 AM EDT 32 JUAN AMALGAM FILLING Routine 05/31/2025 12:00 AM EDT 19 JUAN AMALGAM FILLING Routine 05/31/2025 12:00 AM EDT 18 JUAN AMALGAM FILLING Routine 05/31/2025 12:00 AM [...] AM EDT from Last [address] [place] [address] [address]
--- OUTSIDE RECORDS SUMMARY | 2025-06-09 18:48 | XMS_ITS | Clinical Summary ---
Author Organization [facility] Address [address] [place] [address] Care Team Providers Care Sap Basis Architect Name Role Phone Margie Pham MD Primary Care Provider [phone] Allergies Active Allergy Reactions Criticality Noted Date [...] age to complete this topic Care Teams Sap Basis Architect Relationship Specialty Start Date End Date Margie Pham MD PCP - General Internal Medicine 10/25/17
== END 2025-06-09 13:50 | disposition home or self-care (01) ==
LOC: HO.HPODS 13:20
PROVIDERS: PCP Internal Medicine; Visit Provider Student in an Organized Health Care Education/Training Program
DX: M72.2 Plantar fascial fibromatosis (principal); M76.61 Achilles tendinitis, right leg; M76.62 Achilles tendinitis, left leg
CPT/HCPCS: 99213

== ENCOUNTER → 2025-06-09 13:19 | Outpatient (BNVA) | payer OTHER, SELFPAY | PROVIDERS: PCP Internal Medicine; Visit Provider Student in an Organized Health Care Education/Training Program | DX: M72.2 Plantar fascial fibromatosis (principal); M76.61 Achilles tendinitis, right leg; M76.62 Achilles tendinitis, left leg | CPT/HCPCS: 99212 ==

== ENCOUNTER 2025-06-11 15:42 | Outpatient (REF) | payer OTHER, SELFPAY ==
--- OUTSIDE RECORDS SUMMARY | 2024-11-17 09:45 | XMS_ITS ---
Author Organization [facility] Address [address] [place] [address] Care Team Providers Care Truck Cleaner Name Role Phone Elio MATHIS, Gaudencio Primary Care Provider Unavailabl Arianna Menjivar Unavailable [phone] Madison Cox Unavailable [phone] Medications Medication SIG (Take, Route, Frequency, Duration) [...] Active Encounters Encounter Location Date Provider Diagnosis [address] [address] 11/17/2024 Madison Cox Plan Of Treatment No Information Progress Notes * Lasha MALIKeDOB:[birth year] (60 yo F)Acc No.[id number]:11/17/2024 Progress Notes Patient: Janna CALLES Provider: Cesar Cox DPM :1965 A ge:59 Y S ex:Female Date:11/17/2024 Address:[address] [place] [address] [place], [id number] Pcp:Gaudencio Ballard MD Subjective: * Chief Complaints: [...] 0 11/17/2024 Generated for Sofi ayoub/Keren/Rhea on: 05:01 PM EDT
--- OUTSIDE RECORDS SUMMARY | 2025-03-22 05:30 | XMS_ITS ---
Author Organization [facility] Address [address] [place] [address] Care Team Providers Care Appliance Repairer Name Role Phone Elio MATHIS, Gaudencio Primary Care Provider UnavailArianna Estrella Unavailable [phone] Silvia Green Unavailable [phone] REASON FOR VISIT Seen Sooner Encounters Encounter Location Date Provider Diagnosis [address] [address] 03/22/2025 Silvia Green Plan Of Treatment No Information Progress Notes * Danyel MALIKOB:[birth year] (60 yo F)Acc No.[id number]:03/22/2025 Progress Note Patient: Gayle GODDARD Janna Provider: Ania Green DPM :1965 A ge:59 Y S ex:Female Date:03/22/2025 Address:[address] [place], [place] [phone] Pcp:Gaudencio Ballard MD Subjective: * Chief Complaints: [...] 03/22/2025 Generated for Sofi ayoub/Keren/Rosalbaitting on: 1 05:01 PM EDT
--- NOTE | ~2025-06-11 | XR_ITS ---
EXAMINATION: XR CHEST CLINICAL INFORMATION: J45.20 - Mild intermittent asthma, uncomplicated COMPARISON: Chest 01/20/2025 TECHNIQUE: 2 views of the chest were obtained. FINDINGS: No significant abnormality is noted involving the heart, lungs, mediastinum, bony thorax or soft tissues. XR/XR chest 2V IMPRESSION: Unremarkable chest examination. Electronically signed by: Dank Colón MD 06/14/2025 07:02 AM EDT RP
--- NOTE | ~2025-06-11 | XR_ITS ---
EXAMINATION: Bilateral foot CLINICAL INDICATION: Puncture fascial fibromatosis. TECHNIQUE: 3 views each foot. Weightbearing standing lateral foot was obtained FINDINGS: The ankle mortise and the subtalar joints are normal. A small calcaneal heel spur. The tarsal metatarsal, metatarsophalangeal and interphalangeal joints are maintained normal. XR/XR Foot Jacques 3V IMPRESSION: Small calcaneal heel spur. Otherwise no bony abnormality seen. Electronically signed by: Dank Colón MD 06/14/2025 07:26 AM EDT
--- NOTE | 2025-06-11 15:56 | PFT_ITS ---
Indication: Asthma Spirometry [ FEV1 to FVC 75%; FEV1 2.18 L; FVC 2.9 L. No significant response to bronchodilators noted.] Lung Volumes [Total lung capacity 84% predicted; expiratory reserve volume 23% predicted] Diffusion Capacity [DLCO 86% predicted] Methacholine Challenge [] Flow Volume Loops [Slight concavity to the expiratory limb suggestive of mild obstruction] MVV [103% predicted] Comparisons [None] Interpretation No obstructive nor restrictive ventilatory defects identified. No significant response to bronchodilators noted. Slight concavity to the expiratory limb suggestive of mild obstruction. Lung volumes are normal except for decrease in the expiratory reserve volume likely secondary to an elevated BMI. Diffusing capacity is within normal limits. If asthma is in the differential methacholine challenge may be helpful in assessing for hyperreactive airways. Clinical correlation warranted. MTDD
[2025-06-11 16:42] VITALS: PULSE 78
--- OUTSIDE RECORDS SUMMARY | 2025-06-11 17:01 | XMS_ITS | Clinical Summary ---
Author Organization [facility] Address [address] [place] [address] Care Team Providers Care Rockboard Lather Name Role Phone Margie Pham MD Primary Care Provider [phone] Allergies Active Allergy Reactions Criticality Noted Date [...] age to complete this topic Care Teams Rockboard Lather Relationship Specialty Start Date End Date Margie Pham MD PCP - General Internal Medicine 10/25/17
--- OUTSIDE RECORDS SUMMARY | 2025-06-11 17:01 | XMS_ITS | Clinical Summary ---
Author Organization [facility] Address [address] [place] [address] Phone Care Team Providers Care Glove Boarder Name Role Phone Gaudencio Ballard MD Primary Care Provider [phone] Allergies Active Allergy Reactions Criticality Noted Date [...] Office Visit [facility] [address] [address] Dania Celaya ARNP [address] [address] Health Maintenance Due Date Last [...] (6 to 49 Years) Discontinued 04/17/2016 Insurance [facility] One Care Dual SNP ([id number]) [facility] One Care Dual SNP ([id number]) Care Teams Glove Boarder Relationship Specialty Start Date End Date Gaudencio Ballard MD [address] [place] [address] PCP - General Internal Medicine 12/12/22
--- OUTSIDE RECORDS SUMMARY | 2025-06-11 17:01 | XMS_ITS | Clinical Summary ---
Author Organization [employer] [facility] Address [address] [place] [address] 7 [place] [address] Care Team Providers Care Dental Equipment Repairer Name Role Phone Unavailable Primary Care Provider [...] Description 05/31/2025 9:00 AM EDT Office Visit [facility] ADULT D[facility] [address] [place] [address] Funmi Castillo Secondary dental caries associated with failed or defective dental alevism (Primary Dx); Bruxism 05/31/2025 Travel from Last [...] Description 07/05/2025 11:00 AM EST Office Visit [facility] ADULT [facility] [address] [place] [address] Bobby Ash, DMD [address] [place] [address] Health Maintenance Due Date Last Done Comments [...] caries associated with failed or defective dental alevism CASE PRESENTATION, DETAILED AND EXTENSIVE TREATMENT PLANNING Routine 05/31/2025 9:00 AM EDT Bruxism Secondary dental caries associated with failed or defective dental alevism PROPHYLAXIS - ADULT Routine 05/31/2025 9 :00 AM EDT Bruxism Secondary dental caries associated with failed or defective dental alevism INTRAORAL - COMPLETE SERIES OF RADIOGRAPHIC IMAGES Routine 05/31/2025 9:00 AM EDT Bruxism Secondary dental caries associated with failed or defective dental alevism 5 B(V) COMPOSITE FILLING Routine 025 12:00 [...] AM EDT from Last [address] [place] [address] [place] [address]
--- OUTSIDE RECORDS SUMMARY | 2025-06-11 17:01 | XMS_ITS | Clinical Summary ---
Author Organization [employer] [facility] [employer] Address [address] [place] [address] Phone Care Team Providers Care Palliative Care Physician Name Role Phone Gaudencio Ballard MD Primary Care Provider [phone] Allergies Active Allergy Reactions Criticality Noted Date [...] Surgery Date Site/Laterality Comments ESOPHAGOGASTRODUODENOSCOPY 01/21/07 PROCEDURE: LA ESOPHAGOGASTRODUODENOSCOPY TRANSORAL DIAGNOSTIC; COMMENT: Normal PARTIAL HYSTERECTOMY 03/2010 PROCEDURE: LA SUPRACERVICAL ABDL HYSTER W/WO RMVL TUBE OVARY; COMMENT: Da Dragan TLH with sacropexy, mesh urethral support OTHER SURGICAL HISTORY PROCEDURE: FEMALE SLING SYS W/WO MATRL OTHER SURGICAL HISTORY PROCEDURE: LA RMVL PROSTC MATRL/MESH ABDL WALL FOR INFECTION BREAST SURGERY 2011 Right PROCEDURE: LA UNLISTED PROCEDURE BREAST; COMMENT: rt cyst removed [...] 1986 Zoster Vaccines (1 of 2) 1986 RSV Immunization Adult Patients (1 - Risk 50-74 years 1-dose series) 2017 Pneumococcal Vaccine: 50+ Years (3 of [...] ID:[id number] Group ID:[id number] Type:Not on file Address: [facility] [address] [address] Care Teams Palliative Care Physician Relationship Specialty Start Date End Date Gaudencio Ballard MD [address] [place] [address] PCP - General Internal Medicine 09/16/19
--- OUTSIDE RECORDS SUMMARY | 2025-06-11 17:01 | XMS_ITS | Patient Health Record ---
Author [facility] [place] Address [address] [place] [address] Care Team Providers Care Lacquer Pin Press Operator Name Role Phone Elio MATHIS, [facility] Primary Care Provider UnavailArianna Estrella Unavailable [phone] Madison Cox Unavailable [phone] Silvia Green Unavailable [phone] Brock Ordonez Unavailable [phone] Allergies Allergen (clinical drug ingredient) Drug/Non Drug Allergy documented on EMR Reaction Allergy Type Onset Date Status trazodone Trazodone HCl heart palpitations Drug Allergy Active Latex Latex rash Allergy Active Penicillin Unknown Drug Allergy Active Reason For Referral No Information Medications Medication SIG (Take, Route, Frequency, Duration) Notes Start Date End Date Status Diclofenac Sodium 1 % as directed Nanosystems Engineer ally 4 times a day; Duration: 30 [...] Status W/U Status Risk Notes Problem Neuropathy (692019003) Neuropathy (G62.9) Active confirmed Problem Gout (49113471) Gout of right foot (M10.9) Active confirmed Rx drug management (4) Problem Plantar fascial fibromatosis (88139865) Plantar fasciitis, bilateral (M72.2) Active confirmed Vital Signs Heart Rate 80 /min 01/22/2025 Blood pressure diastolic 89 mm Hg 01/22/2025 Height 5ft in 03/05/2025 Blood pressure systolic 124 mm Hg 01/22/2025 Weight 176 lbs 03/05/2025 BMI 34.37 kg/m2 03/05/2025 Encounters Encounter Location Date Provider Diagnosis [facility] [address] [place] [address] 11/05/2024 Brock Ordonez Gout of right foot M10.9 and Pain in right toe(s) M79.[address] [address] 01/22/2025 Arianna Joshi Pain in right foot M79.671 ; Plantar fasciitis, bilateral M72.2 ; Calcaneal spur, right foot M77.31 ; Other myositis of right foot M60.871 ; Bursitis of right foot M77.51 ; Pain in left foot M79.672 ; Calcaneal spur, left foot M77.32 ; Other myositis of left foot M60.872 and Bursitis of left foot M77.[address] [address] 03/05/2025 Arianna Joshi Pain in right foot [...] G62.9 and 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EDNA [facility] [address] 11/09/2024 [facility] [address] 11/09/2024 Brock Ordonez [address] [address] 11/17/2024 [facility] [address] [address] 03/05/2025 [facility] [address] [address] 03/12/2025 Arianna Joshi [address] [address] 04/20/2025 Arianna Joshi Assessments Encounter Date Diagnosis [...] Insured Coverage Start Date Coverage End Date [facility] [employer] Claims [address] [place] [id number] Janna Hooper Self - patient is the insured Medical (General) History Medical History History ICD Code Anxiety Arthritis asthma Back,Hip,and Knee pain Fibromyalgia Reflux ( GERD) Chicken pox Surgical History Surgery Date(Month/Year) bladder suspension 2009, 2010, 2011 hysterectomy 2012, 2014, 2018 Hospitalization History Reason Date(Month/Year) [facility] 11/2024 [facility] MRI bilateral ankles 07/21/20
--- OUTSIDE RECORDS SUMMARY | 2025-06-11 17:01 | XMS_ITS | Clinical Summary ---
Author Organization [facility] Address [address] [place] [address] Care Team Providers Care Artillery Maintenance Supervisor Name Role Phone Margie Pham MD Primary Care Provider [phone] Allergies Active Allergy Reactions Criticality Noted Date [...] series) 2042 Medical Devices Implanted Type Area Sales/Marketing Device Identifier Shelf Expiration Date Model / Serial / Lot Mesh Pelvic Prolapse Polypropylene Y Shape [id number] [facility] - [id number] - [id number] Implanted:Qty: 1 on 10/13/2018 by Liat Sheikh MD at [facility] Mesh N/A: Vagina COLOPLAST 05/15/2021 [id number] / [id number] / [id number] Insurance [facility] Advance Directives Documents on File Type Date Recorded Patient Station Captain Expl anation Health Care Proxy 03/07/2021 * Full Code (Latest Code Status on File) Date Activated Date Inactivated Comments 10/13/2018 5:38 AM 10/14/2018 4:15 PM Healthcare Agents on File Name Relationship Healthcare Agent Relationship Communication Evan Hooper Spouse Healthcare Proxy - Primar y Lisa Biggs Daughter Healthcare Prox y - Alternative Care Teams Artillery Maintenance Supervisor Relationship Specialty Start Date End Date Margie Pham MD PCP - General 06/18/18
== END 2025-06-11 15:43 | disposition home or self-care (01) ==
LOC: HO.RESP 15:42
PROVIDERS: Absent Provider Student in an Organized Health Care Education/Training Program; PCP Internal Medicine; Visit Provider Hospitalist
DX: J45.20 Mild intermittent asthma, uncomplicated (principal); M72.2 Plantar fascial fibromatosis
CPT/HCPCS: 71046; 73630; 94060; 94640; 94727; 94729

== ENCOUNTER → 2025-06-11 15:56 | Outpatient (BNV) | payer OTHER, SELFPAY | PROVIDERS: Absent Provider Student in an Organized Health Care Education/Training Program; PCP Internal Medicine; Visit Provider Hospitalist | DX: J45.20 Mild intermittent asthma, uncomplicated (principal) | CPT/HCPCS: 94060; 94727; 94729 ==

== ENCOUNTER → 2025-06-11 16:40 | Outpatient (BNV) | payer OTHER, SELFPAY | PROVIDERS: Absent Provider Student in an Organized Health Care Education/Training Program; PCP Internal Medicine; Visit Provider Radiology Diagnostic Radiology | DX: J45.20 Mild intermittent asthma, uncomplicated (principal); M77.31 Calcaneal spur, right foot; M77.32 Calcaneal spur, left foot | CPT/HCPCS: 71046; 73630 ==

== ENCOUNTER 2025-06-16 13:00 | Outpatient (AMB) | payer OTHER, SELFPAY ==
--- OUTSIDE RECORDS SUMMARY | 2024-11-17 09:45 | XMS_ITS ---
Author Organization [facility] Address [address] [place] [address] Care Team Providers Care Vp Integrity Name Role Phone Elio MATHIS, Gaudencio Primary Care Provider Unavailabl Arianna Menjivar Unavailable [phone] Madison Cox Unavailable [phone] Medications Medication SIG (Take, Route, Frequency, Duration) [...] Active Encounters Encounter Location Date Provider Diagnosis [address] [address] 11/17/2024 Madison Cox Plan Of Treatment No Information Progress Notes * Lasha MALIKeDOB:[birth year] (60 yo F)Acc No.[id number]:11/17/2024 Progress Notes Patient: Janna CALLES Provider: Cesar Cox DPM :1965 A ge:59 Y S ex:Female Date:11/17/2024 Address:[address] [place] [address] [place], [id number] Pcp:Gaudencio Ballard MD Subjective: * Chief Complaints: [...] 0 11/17/2024 Generated for Sofi ayoub/Keren/Rhea on: 04:30 PM EDT
--- OUTSIDE RECORDS SUMMARY | 2025-03-22 05:30 | XMS_ITS ---
Author Organization [facility] Address [address] [place] [address] Care Team Providers Care Last Chalker Name Role Phone Elio MATHIS, Gaudencio Primary Care Provider UnavailArianna Estrella Unavailable [phone] Silvia Green Unavailable [phone] REASON FOR VISIT Seen Sooner Encounters Encounter Location Date Provider Diagnosis [address] [address] 03/22/2025 Silvia Green Plan Of Treatment No Information Progress Notes * Danyel MALIKOB:[birth year] (60 yo F)Acc No.[id number]:03/22/2025 Progress Note Patient: Gayel GODDARD Janna Provider: Ania Green DPM :1965 A ge:59 Y S ex:Female Date:03/22/2025 Address:[address] [place], [place] [phone] Pcp:Gaudencio Ballard MD Subjective: * Chief Complaints: [...] 03/22/2025 Generated for Sofi ayoub/Keren/Rosalbaitting on: 1 04:30 PM EDT
[2025-06-16 13:07] VITALS: BP 114/76; PULSE 79; RESP 16; TEMP 36.6; O2SAT 98; BMI 29.9
--- NOTE | 2025-06-16 13:07 | MHC.PC.OV ---
Vital Signs 06/16/25 13:07 Height 5 ft 4 in Weight 174 lb BMI 29.9 BP 114/76 Blood Pressure Location Rt brachial Position Sitting Respiration 16 Pulse 79 Pulse Source Pulse Oximeter Temp 98 F Temp Source Oral Pulse Oximetry (%) 98 Oxygen Delivery Method Room Air Intake Visit Reasons: 7-10 days f/up Allergies cat dander (cats) Allergy (Intermediate, Verified 06/09/25 13:27) Itchy Eyes and burning cigarette smoke Allergy (Intermediate, Verified 06/09/25 13:27) migraines latex Allergy (Intermediate, Verified 06/09/25 13:27) Rash trazodone Allergy (Intermediate, Verified 06/09/25 13:27) palpitations Penicillins Adverse Reaction (Intermediate, Verified 06/09/25 13:27) Abdominal Pain tamsulosin Allergy (Severe, Uncoded 06/09/25 13:27) Dizziness Medication List - Last Reconciled 06/16/25 by Gaudencio Ballard MD [Adult Sanitary Wipes 4 packs / month] albuterol sulfate 90 mcg/actuation 2 puffs inhalation Q6H PRN albuterol sulfate 2.5 mg (3 mL) inhalation QID PRN amitriptyline 10 mg PO BEDTIME celecoxib (Celebrex) 200 mg PO BID PRN cholecalciferol (vitamin D3) 25 mcg PO DAILY 90 days clindamycin phosphate 1% topical BID PRN disposable gloves (Disposable Latex-Free Gloves) Use As directed doxycycline monohydrate 100 mg PO Q12H gabapentin 300 mg PO BEDTIME 90 days lorazepam mg PO DAILY magnesium 250 mg PO BID methylprednisolone (Medrol (Melo)) 4 mg PO PER PKG DIR metoprolol succinate ER mg PO DAILY nebulizers with supplies and all needed equipment, to use for updraft treatments pantoprazole 40 mg PO BID [Poise incontinence pads Requires poise due to allergies. NS] pyridoxine (vitamin B6) 100 mg PO DAILY [shoes for planter faciatis As directed] [suction grab bars As directed] tacrolimus 0.03% topical DAILY tramadol 50 mg PO BID PRN 30 days turmeric mg PO [Updraft machine tubing As directed] venlafaxine ER 150 mg PO BEDTIME 90 days Tobacco use date assessed: 01/19/25 Dental Screening Dental Screen Date: 02/05/25 HPI 7-10 days f/up HPI Details History The patient is a 60-year-old female presenting for a follow-up visit to review lab results and manage chronic pain. Chronic Pain/Fibromyalgia: - The patient reports experiencing severe, extreme pain, which has recently worsened despite previously feeling better. - The pain is significant enough to cause insomnia, emotional distress, and stress. - She describes the pain in her knees as feeling like they are on fire and also experiences pain that radiates down when she is sitting, requiring her to massage the area. - The pain is so severe that she hesitates before taking a step to avoid falling. - The patient has a known history of fibromyalgia. - She currently takes gabapentin and tramadol for pain, but still feels the pain. Hypercholesterolemia: - Lab results show a total cholesterol of 261 and an LDL of 161, which is above the goal of less than 130. - The patient has a very high good cholesterol (HDL), which is noted to be protective. - She reports that she eats red meat, including hamburgers. - She also reports consuming green tea, dandelion tea, and turmeric to help with inflammation. Elevated Inflammatory Markers: - Recent lab work revealed a high C-reactive protein (CRP), which is a marker of inflammation. - The patient reports having high inflammatory markers for years and has seen a steel rule die maker previously who tested her for everything but could not find a cause. - These results have already been sent to the [facility] for rheumatology review. Elevated Alkaline Phosphatase: - Lab results showed a slightly elevated alkaline phosphatase of 127. - This level was normal in January. - The patient still has her gallbladder. Fatty Liver: - The patient has a known history of fatty liver, confirmed on a prior ultrasound. Earlier this year - The condition is described as very mild and has remained stable. - The prior ultrasound showed no gallstones. Problem List - Chronic pain secondary to fibromyalgia - Hypercholesterolemia - Elevated inflammatory markers - Insomnia - Mildly elevated alkaline phosphatase - Fatty liver disease - Prediabetes Diagnostic results - Urinalysis: Positive for leukocyte esterase. - Urine Culture: Negative for any bacterial growth - Basic Metabolic Panel: Electrolytes and kidney functions are normal. - Hemoglobin A1c: 5.7%. - Liver Function Tests: AST and ALT are normal; alkaline phosphatase is slightly elevated at 127. - C-reactive protein: Elevated. 4.4 - Lipid Panel: Total cholesterol 261, LDL 161, with a noted high HDL. - Vitamin B12: Normal. - Vitamin D: Normal. - Thyroid Function Tests: Normal. - Calcium: Normal at 9.4. - Prior Ultrasound: Showed very mild fatty liver and no gallstones. [place] of Care - Awaiting a rheumatology appointment with the [facility]. - Upcoming appointments include surgery, gastroenterology, and podiatry next month. - Has a pulmonary appointment in July and a neurology appointment in August. Plan - For chronic pain and insomnia, the patient will continue taking gabapentin and tramadol. - A prescription for a trial of 10 tablets of Ambien will be sent to help with sleep. Trial - For hypercholesterolemia, the patient is advised to cut red meat from her diet. - Regarding the elevated inflammatory markers, the patient will follow up with rheumatology for further evaluation and diagnosis; lab reports have been sent to the [facility]. - we will continue to monitor alkaline phosphatase level. - The patient will need to return for follow-up every three months for medication refills, with the next appointment scheduled for August. 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 Mother Asthma Dementia Alzheimer's disease Paternal Aunt Lung cancer Breast cancer, Onset Age: 62 Brother No problems noted. Brother No problems noted. Brother No problems noted. Sister No problems noted. Sister No problems noted. Sister No problems noted. Paternal Aunt Breast cancer, Onset Age: 70 Other Mental health disorder Social History Household Members: Significant Other and Children Household Members Other:: 2 children Housing: House Are you a primary senior care specialist to a significant other at home: No Do you presently have visiting nurse or other home services: No Alcohol intake: never Patient Tobacco Use Status: Never used Tobacco e-Cigarette/Vaping Use: Never Used service: No Current occupational status: unemployed and disabled Cognitive needs: No Hearing needs: No Vision needs: Yes Female Reproductive History Menstrual Age of Menarche: 15 Questionnaire Thrive Questionnaire Date Thrive assessed: 10/27/24 I am a: Patient What is your living situation today?: I have a steady place to live Within the past 12 months, did the food you bought not last and you didn't have the money to get more?: Never true Within the past 12 months, did you worry whether your food would run out before you got money to buy more?: Never true Do you have trouble paying for medicines?: No Do you have trouble getting transportation to medical appointments?: No Do you have trouble paying your heating and electricity bill?: No Do you have trouble taking care of your child, family member or friend?: No Do you have trouble with day-to-day activities such as bathing, preparing meals, shopping, managing finances, etc.?: I choose not to answer this question Are you currently unemployed and looking for a job?: Yes Are you interested in more education?: No Please select the resources that you would like help with: None Currently or been in a relationship where the following occur: No concerns reported THRIVE Score: 0 OLI-7 AMB Questionnaire OLI-7 Date OLI - 7 assessed: 01/19/25 Source: Developed by Drs. Gatito Agustin, Catina Hunter, Adrien Liao and colleagues, with an educational kori from [employer]. Physical exam (Primary Care) Vital Signs: Last Vital Signs Temp 98 F 06/16/25 13:07 Pulse 79 06/16/25 13:07 Resp 16 06/16/25 13:07 BP 114/76 06/16/25 13:07 Pulse Ox 98 06/16/25 13:07 Oxygen Delivery Method Room Air 06/16/25 13:07 BMI result Body Mass Index 29.9 Tobacco/Smoking Status: Tobacco use Status Tobacco use date assessed 01/19/25 06/16/25 13:13 Patient Tobacco Use Status Never used Tobacco 06/16/25 13:13 e-Cigarette/Vaping Use Never Used 06/16/25 13:13 Thrive Assessment: Date of Thrive Assessment Date Thrive assessed 10/27/24 06/16/25 13:13 Currently or been in a relationship where the following occur: No concerns reported Coding Level of Care Code Est Pt Level 5 (63040) Diagnoses Elevated C-reactive protein (CRP) R79.82 Feeling unwell R68.89 Whole body pain R52 Difficulty sleeping G47.9 Elevated alkaline phosphatase level R74.8 Anxiety about health F41.8 Fibromyalgia M79.7 Heart palpitations R00.2 Primary osteoarthritis of both knees M17.0 Osteoarthritis type: primary Pre-diabetes R73.03 Bilateral plantar fasciitis M72.2 Time Spent (min) 40 Comment Lab review/previous note review/imaging few/discussion with patient [id number] Assessment & Plan Assessment & Plan (1) Elevated C-reactive protein (CRP): Code(s): R79.82 - Elevated C-reactive protein (CRP) Category: Medical (2) Feeling unwell: Code(s): R68.89 - Other general symptoms and signs Category: Medical (3) Whole body pain: Code(s): R52 - Pain, unspecified Category: Medical (4) Difficulty sleeping: Code(s): G47.9 - Sleep disorder, unspecified Category: Medical (5) Elevated alkaline phosphatase level: Code(s): R74.8 - Abnormal levels of other serum enzymes Category: Medical (6) Anxiety about health: Code(s): F41.8 - Other specified anxiety disorders Category: Medical (7) Fibromyalgia: Code(s): M79.7 - Fibromyalgia Category: Medical (8) Heart palpitations: Code(s): R00.2 - Palpitations Category: Medical (9) Osteoarthritis of knees, bilateral: Code(s): M17.0 - Bilateral primary osteoarthritis of knee Category: Medical Qualifiers: Osteoarthritis type: primary Qualified Code(s): M17.0 - Bilateral primary osteoarthritis of knee (10) Pre-diabetes: Code(s): R73.03 - Prediabetes Category: Medical (11) Bilateral plantar fasciitis: Code(s): M72.2 - Plantar fascial fibromatosis Category: Medical Plan Chronic Pain/Fibromyalgia: - The patient reports experiencing severe, extreme pain, which has recently worsened despite previously feeling better. - The pain is significant enough to cause insomnia, emotional distress, and stress. - She describes the pain in her knees as feeling like they are on fire and also experiences pain that radiates down when she is sitting, requiring her to massage the area. - The pain is so severe that she hesitates before taking a step to avoid falling. - The patient has a known history of fibromyalgia. - She currently takes gabapentin and tramadol for pain, but still feels the pain. Hypercholesterolemia: - Lab results show a total cholesterol of 261 and an LDL of 161, which is above the goal of less than 130. - The patient has a very high good cholesterol (HDL), which is noted to be protective. - She reports that she eats red meat, including hamburgers. - She also reports consuming green tea, dandelion tea, and turmeric to help with inflammation. Elevated Inflammatory Markers: - Recent lab work revealed a high C-reactive protein (CRP), which is a marker of inflammation. - The patient reports having high inflammatory markers for years and has seen a steel rule die maker previously who tested her for everything but could not find a cause. - These results have already been sent to the [facility] for rheumatology review. Elevated Alkaline Phosphatase: - Lab results showed a slightly elevated alkaline phosphatase of 127. - This level was normal in January. - The patient still has her gallbladder. Fatty Liver: - The patient has a known history of fatty liver, confirmed on a prior ultrasound. Earlier this year - The condition is described as very mild and has remained stable. - The prior ultrasound showed no gallstones. Problem List - Chronic pain secondary to fibromyalgia - Hypercholesterolemia - Elevated inflammatory markers - Insomnia - Mildly elevated alkaline phosphatase - Fatty liver disease - Prediabetes Diagnostic results - Urinalysis: Positive for leukocyte esterase. - Urine Culture: Negative for any bacterial growth - Basic Metabolic Panel: Electrolytes and kidney functions are normal. - Hemoglobin A1c: 5.7%. - Liver Function Tests: AST and ALT are normal; alkaline phosphatase is slightly elevated at 127. - C-reactive protein: Elevated. 4.4 - Lipid Panel: Total cholesterol 261, LDL 161, with a noted high HDL. - Vitamin B12: Normal. - Vitamin D: Normal. - Thyroid Function Tests: Normal. - Calcium: Normal at 9.4. - Prior Ultrasound: Showed very mild fatty liver and no gallstones. [place] of Care - Awaiting a rheumatology appointment with the [facility]. - Upcoming appointments include surgery, gastroenterology, and podiatry next month. - Has a pulmonary appointment in July and a neurology appointment in August. Plan - For chronic pain and insomnia, the patient will continue taking gabapentin and tramadol. - A prescription for a trial of 10 tablets of Ambien will be sent to help with sleep. Trial - For hypercholesterolemia, the patient is advised to cut red meat from her diet. - Regarding the elevated inflammatory markers, the patient will follow up with rheumatology for further evaluation and diagnosis; lab reports have been sent to the [facility]. - we will continue to monitor alkaline phosphatase level. - The patient will need to return for follow-up every three months for medication refills, with the next appointment scheduled for August. Medications: New zolpidem (Ambien) 5 mg PO BEDTIME PRN 10 tabs 0RF sleep Discontinued methylprednisolone (Medrol (Melo)) Take 6 tablets on day 1, 5 tablets on day 2, 4 tablets on day 3, 3 tablets on day 4, 2 tablets on day 5, and 1 tablet on day 6. Discontinued Reason: Doctor's Order 4 mg PO PER PKG DIR 21 ea 0RF fasciitis M72.2 - Plantar fascial fibromatosis
--- OUTSIDE RECORDS SUMMARY | 2025-06-16 16:30 | XMS_ITS | Clinical Summary ---
Author Organization [facility] Address [address] [place] [phone] Phone Care Team Providers Care Vp Treasurer Name Role Phone Gaudencio Ballard MD Primary Care Provider [phone] Allergies Active Allergy Reactions Criticality Noted Date [...] Office Visit [facility] [address] [address] Dania Celaya ARNP [address] [address] Health Maintenance Due Date Last [...] (6 to 49 Years) Discontinued 04/17/2016 Insurance [facility] One [employer] Dual SNP ([id number]) [facility] One Care Dual SNP ([id number]) Care Teams Vp Treasurer Relationship Specialty Start Date End Date Gaudencio Ballard MD [address] [place] [phone] PCP - General Internal Medicine 12/12/22
--- OUTSIDE RECORDS SUMMARY | 2025-06-16 16:30 | XMS_ITS | Patient Health Record ---
Author Organization [facility]issy [place] Address [address] [place] [address] Care Team Providers Care Contour Stitcher Name Role Phone Elio MATHIS, [facility] Primary Care Provider UnavailArianna Estrella Unavailable [phone] Madison Cox Unavailable [phone] Silvia Green Unavailable [phone] Brock Ordonez Unavailable [phone] Allergies Allergen (clinical drug ingredient) Drug/Non Drug Allergy documented on EMR Reaction Allergy Type Onset Date Status trazodone Trazodone HCl heart palpitations Drug Allergy Active Latex Latex rash Allergy Active Penicillin Unknown Drug Allergy Active Reason For Referral No Information Medications Medication SIG (Take, Route, Frequency, Duration) Notes Start Date End Date Status Diclofenac Sodium 1 % as directed Hplc Chemist ally 4 times a day; Duration: 30 [...] Status W/U Status Risk Notes Problem Neuropathy (164470140) Neuropathy (G62.9) Active confirmed Problem Gout (63938891) Gout of right foot (M10.9) Active confirmed Rx drug management (4) Problem Plantar fascial fibromatosis (05258909) Plantar fasciitis, bilateral (M72.2) Active confirmed Vital Signs Heart Rate 80 /min 01/22/2025 Blood pressure diastolic 89 mm Hg 01/22/2025 Height 5ft in 03/05/2025 Blood pressure systolic 124 mm Hg 01/22/2025 Weight 176 lbs 03/05/2025 BMI 34.37 kg/m2 03/05/2025 Encounters Encounter Location Date Provider Diagnosis [facility] [address] [place] [address] 11/05/2024 Brock Ordonez Gout of right foot M10.9 and Pain in right toe(s) M79.[address] [address] 01/22/2025 Arianna Joshi Pain in right foot M79.671 ; Plantar fasciitis, bilateral M72.2 ; Calcaneal spur, right foot M77.31 ; Other myositis of right foot M60.871 ; Bursitis of right foot M77.51 ; Pain in left foot M79.672 ; Calcaneal spur, left foot M77.32 ; Other myositis of left foot M60.872 and Bursitis of left foot M77.[address] [address] 03/05/2025 Arianna Joshi Pain in right foot [...] G62.9 and 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EDNA [place] [facility] [address] 11/09/2024 [facility] [address] 11/09/2024 Brock Ordonez [address] [address] 11/17/2024 [facility] [address] [address] 03/05/2025 [facility] [address] [address] 03/12/2025 Arianna Joshi [address] [address] 04/20/2025 Arianna Joshi Assessments Encounter Date Diagnosis [...] Insured Coverage Start Date Coverage End Date [facility] S[employer] Claims [address] [place] [id number] Janna Hooper Self - patient is the [...]
--- OUTSIDE RECORDS SUMMARY | 2025-06-16 16:30 | XMS_ITS | Clinical Summary ---
Author Organization [facility] Address [address] [place] [address] Care Team Providers Care Ocularist Name Role Phone Margie Pham MD Primary Care Provider [phone] Allergies Active Allergy Reactions Criticality Noted Date [...] age to complete this topic Care Teams Ocularist Relationship Specialty Start Date End Date Margie Pham MD PCP - General Internal Medicine 10/25/17
--- OUTSIDE RECORDS SUMMARY | 2025-06-16 16:30 | XMS_ITS | Clinical Summary ---
Author Organization [employer] [facility] Address [address] [place] [address] 7 [place] [address] Care Team Providers Care Car Groomer Name Role Phone Unavailable Primary Care Provider [...] 9:00 AM EDT Office Visit [facility] [address] [place] [address] Funmi Castillo Secondary dental caries associated with failed or defective dental bahai (Primary Dx); Bruxism 05/31/2025 Travel from Last [...] Description 07/05/2025 11:00 AM EST Office Visit [facility]ULT [facility] [address] [place] [address] Bobby Ash, DMD [address] [place] [address] Health Maintenance Due Date Last Done Comments [...] caries associated with failed or defective dental bahai CASE PRESENTATION, DETAILED AND EXTENSIVE TREATMENT PLANNING Routine 05/31/2025 9:00 AM EDT Bruxism Secondary dental caries associated with failed or defective dental bahai PROPHYLAXIS - ADULT Routine 05/31/2025 9 :00 AM EDT Bruxism Secondary dental caries associated with failed or defective dental bahai INTRAORAL - COMPLETE SERIES OF RADIOGRAPHIC IMAGES Routine 05/31/2025 9:00 AM EDT Bruxism Secondary dental caries associated with failed or defective dental bahai 5 B(V) COMPOSITE FILLING Routine 025 12:00 [...] AM EDT from Last [address] [place] [address]
--- OUTSIDE RECORDS SUMMARY | 2025-06-16 16:30 | XMS_ITS | Clinical Summary ---
Author Organization [facility] Address [address] [place] [address] Phone Care Team Providers Care Senior Oracle Database Administrator Name Role Phone Gaudencio Ballard MD Primary Care Provider [phone] Allergies Active Allergy Reactions Criticality Noted Date [...] ID:[id number] Group ID:[id number] Type:Not on file Address: [facility] [address] [address] Care Teams Senior Oracle Database Administrator Relationship Specialty Start Date End Date Gaudencio Ballard MD [address] [place] [address] PCP - General Internal Medicine 09/16/19
--- OUTSIDE RECORDS SUMMARY | 2025-06-16 16:30 | XMS_ITS | Clinical Summary ---
Author Organization [facility] Address [address] [place] [address] Care Team Providers Care Restaurant Hourly Manager Name Role Phone Margie Pham MD Primary Care Provider [phone] Allergies Active Allergy Reactions Criticality Noted Date [...] series) 2042 Medical Devices Implanted Type Area Butadiene Converter Helper Device Identifier Shelf Expiration Date Model / Serial / Lot Mesh Pelvic Prolapse Polypropylene Y Shape [id number] [facility] - [id number] - [id number] Implanted:Qty: 1 on 10/13/2018 by Liat Sheikh MD at [facility] Mesh N/A: Vagina COLOPLAST 05/15/2021 [id number] / [id number] / [id number] Insurance [facility] Advance Directives Documents on File Type Date Recorded Patient Instructional Services Librarian Expl anation Health Care Proxy 03/07/2021 * Full Code (Latest Code Status on File) Date Activated Date Inactivated Comments 10/13/2018 5:38 AM 10/14/2018 4:15 PM Healthcare Agents on File Name Relationship Healthcare Agent Relationship Communication Evan Hooper Spouse Healthcare Proxy - Primar y Lisa Biggs Daughter Healthcare Prox y - Alternative Care Teams Restaurant Hourly Manager Relationship Specialty Start Date End Date Margie Pham MD PCP - General 06/18/18
== END 2025-06-16 13:39 | disposition home or self-care (01) ==
LOC: HO.HMCC 13:01
PROVIDERS: PCP Internal Medicine; Visit Provider Internal Medicine
DX: R52 Pain, unspecified (principal); R79.82 Elevated C-reactive protein (CRP); R68.89 Other general symptoms and signs; G47.9 Sleep disorder, unspecified; R74.8 Abnormal levels of other serum enzymes; F41.8 Other specified anxiety disorders; M79.7 Fibromyalgia; R00.2 Palpitations; M17.0 Bilateral primary osteoarthritis of knee; R73.03 Prediabetes; M72.2 Plantar fascial fibromatosis

== ENCOUNTER → 2025-06-16 13:00 | Outpatient (BNVA) | payer OTHER, SELFPAY | PROVIDERS: PCP Internal Medicine; Visit Provider Internal Medicine | DX: M79.7 Fibromyalgia (principal); E78.00 Pure hypercholesterolemia, unspecified; K76.0 Fatty (change of) liver, not elsewhere classified; R79.82 Elevated C-reactive protein (CRP); R68.89 Other general symptoms and signs; G47.9 Sleep disorder, unspecified; R74.8 Abnormal levels of other serum enzymes; F41.8 Other specified anxiety disorders; R00.2 Palpitations; M17.0 Bilateral primary osteoarthritis of knee; R73.03 Prediabetes; M72.2 Plantar fascial fibromatosis | CPT/HCPCS: 99212 ==

== ENCOUNTER 2025-06-22 14:45 | Outpatient (AMB) | payer OTHER, SELFPAY ==
--- OUTSIDE RECORDS SUMMARY | 2024-11-17 08:45 | XMS_ITS ---
Author Organization [facility] Address [address] [place] [address] Care Team Providers Care Torch Shearer Name Role Phone Elio MATHIS, Gaudencio Primary Care Provider Unavailabl Arianna Menjivar Unavailable [phone] Madison Cox Unavailable [phone] Medications Medication SIG (Take, Route, Frequency, Duration) Notes Start Date End Date Status Physical Therapy . . . 2-3x/week; Durat ion: 3-4 weeks Not-Taking Gabapentin 300 MG 1 capsule Orally Onc e a day; Duration: 30 day(s) Active Prilosec Active Diclofenac Sodium 75 MG 1 tablet with fo od Orally Twice a day; Duration: 30 days 11/05/2024 Active Encounters Encounter Location Date Provider Diagnosis [address] [address] 11/17/2024 Madison Cox Plan Of Treatment No Information Progress Notes * Lasha MALIKeDOB:[birth year] (60 yo F)Acc No.[id number]:11/17/2024 Progress Notes Patient: Janna CALLES Provider: Cesar Cox DPM :1965 A ge:59 Y S ex:Female Date:11/17/2024 Address:[address] [place] [address] [place], [place]-[id number] Pcp:Gaudencio Ballard MD Subjective: * Chief Complaints: * * Medical History: * Medications: T aking Gabapentin 300 MG Capsule 1 capsule Orally Once a day , Taking Prilosec , Taking Diclofenac Sodium 75 MG Tablet Delayed Release 1 tablet with food Orally Twice a day , Not-Taking/PRN Physical Therapy . . . . 2-3x/week Objective: * Vitals: Assessment: Plan: * Treatment: * Images: * The named appointment provid er may or may not be the originator of this progress note, and it is not deemed complete until electronically signed by the appointment provider. Sign off status: Pending * Provider: Cesar Cox DPM Date: 0 11/17/2024 Generated for Sofi ayoub/Keren/Rhea on: 08/22/2024 05:50 PM EST
--- OUTSIDE RECORDS SUMMARY | 2025-03-22 04:30 | XMS_ITS ---
Author Organization [facility] Address [address] [place] [address] Care Team Providers Care Search Analyst Name Role Phone Elio MATHIS, Gaudencio Primary Care Provider UnavailArianna Estrella Unavailable [phone] Silvia Green Unavailable [phone] REASON FOR VISIT Seen Sooner Encounters Encounter Location Date Provider Diagnosis [address] [address] 03/22/2025 Silvia Green Plan Of Treatment No Information Progress Notes * Danyel MALIKOB:[birth year] (60 yo F)Acc No.[id number]:03/22/2025 Progress Note Patient: Gayle GODDARD Janna Provider: Ania Green DPM :1965 A ge:59 Y S ex:Female Date:03/22/2025 Address:[address] [place], [place] [phone] Pcp:Gaudencio Ballard MD Subjective: * Chief Complaints: [...] 03/22/2025 Generated for Sofi ayoub/Keren/Rhea on: 1 08/22/2024 05:50 PM EST
--- NOTE | 2025-06-22 15:06 | MHC.OFFVIS ---
Vital Signs 06/22/25 15:16 Height 5 ft 4 in Weight 174 lb BMI 29.9 BP 139/71 Blood Pressure Location Lt brachial Position Sitting Pulse 95 Intake Visit Reasons: yearly breast exam/folicular cyst Intake Note: Patient is seen in office for yearly breast exam and evaluation of a cyst. Pt c/o: states for the past 2 yrs can feel a lump above the left breast, painful to the touch, denies increase/decrease in size Plating Equipment Tender Required: No Swager Operator: Swager Operator Present Accompanied by: Self / Same As Patient Allergies cat dander (cats) Allergy (Intermediate, Verified 06/22/25 15:13) Itchy Eyes and burning cigarette smoke Allergy (Intermediate, Verified 06/22/25 15:13) migraines latex Allergy (Intermediate, Verified 06/22/25 15:13) Rash trazodone Allergy (Intermediate, Verified 06/22/25 15:13) palpitations Penicillins Adverse Reaction (Intermediate, Verified 06/22/25 15:13) Abdominal Pain tamsulosin Allergy (Severe, Uncoded 06/22/25 15:13) Dizziness Medication List - Last Reconciled 06/22/25 by Tr Lopez MD [Adult Sanitary Wipes 4 packs / month] albuterol sulfate 90 mcg/actuation 2 puffs inhalation Q6H PRN albuterol sulfate 2.5 mg (3 mL) inhalation QID PRN amitriptyline 10 mg PO BEDTIME celecoxib (Celebrex) 200 mg PO BID PRN cholecalciferol (vitamin D3) 25 mcg PO DAILY 90 days clindamycin phosphate 1% topical BID PRN disposable gloves (Disposable Latex-Free Gloves) Use As directed gabapentin 300 mg PO BEDTIME 90 days magnesium 250 mg PO BID metoprolol succinate ER mg PO DAILY nebulizers with supplies and all needed equipment, to use for updraft treatments pantoprazole 40 mg PO BID [Poise incontinence pads Requires poise due to allergies. NS] pyridoxine (vitamin B6) 100 mg PO DAILY [shoes for planter faciatis As directed] [suction grab bars As directed] tacrolimus 0.03% topical DAILY tramadol 50 mg PO BID PRN 30 days turmeric mg PO [Updraft machine tubing As directed] venlafaxine ER 150 mg PO BEDTIME 90 days zolpidem (Ambien) 5 mg PO BEDTIME PRN HPI Comments Details: 60-year-old female patient returning for follow-up breast examination. Mammogram of 04/12/2023 revealed loosely grouped predominantly punctate calcifications in the upper outer quadrant of the left breast middle 3rd. Six-month follow-up mammogram on 10/15/2023 revealed no significant change in the left breast calcifications. This was felt to be low suspicion for malignancy (BI-RADS 3). Her most recent mammogram of 05/24/2025 revealed by lateral circumscribed oval masses which wax and wane consistent with benign fibrocystic changes. There are no significant masses, abnormal calcifications or other abnormalities. The impression was no mammographic evidence of malignancy (BI-RADS 2). Routine follow-up in 1 year is recommended. Previous examination revealed bilateral areas of fibrocystic change and tenderness with no suspicious densities. She is with 1 miscarriage. Her family history is significant for 2 paternal aunts with breast cancer 1 who . Genetic testing performed on 11/07/2023 revealed no clinically significant mutations identified and no variance of uncertain significance identified. Her breast cancer risk score was calculated at 12.7 %, below the 20% high risk threshold. She continues to report tenderness in the breast, left greater than right. [facility] Medical History Abnormal chest x-ray Asthma BMI 32.0-32.9,adult Obesity Kidney stones Kidney stones, calcium oxalate Perioral dermatitis Muscle spasm Microscopic hematuria Hot flashes Vitamin D deficiency Fibromyalgia Osteoarthritis Chronic GERD Depression, major, recurrent Surgical History Hx of appendectomy History of esophagogastroduodenoscopy (EGD) H/O colonoscopy History of hysterectomy History of surgery Family History Father No problems noted. Mother Asthma Dementia Alzheimer's disease Paternal Aunt Lung cancer Breast cancer, Onset Age: 62 Brother No problems noted. Brother No problems noted. Brother No problems noted. Sister No problems noted. Sister No problems noted. Sister No problems noted. Paternal Aunt Breast cancer, Onset Age: 70 Other Mental health disorder Social History Household Members: Significant Other and Children Household Members Other:: 2 children Housing: House Are you a primary spiritual care coordinator to a significant other at home: No Do you presently have visiting nurse or other home services: No Alcohol intake: never Patient Tobacco Use Status: Never used Tobacco e-Cigarette/Vaping Use: Never Used service: No Current occupational status: unemployed and disabled Cognitive needs: No Hearing needs: No Vision needs: Yes Female Reproductive History Menstrual Age of Menarche: 15 Review of Systems Const All systems reviewed & are unremarkable except as noted in HPI and below Physical Exam Vital Signs: Last Vital Signs Pulse 95 06/22/25 15:16 BP 139/71 06/22/25 15:16 BMI result Body Mass Index 29.9 Const General: cooperative and no acute distress Nutritional Appearance: well nourished Orientation/consciousness: patient oriented x3 Limitations: no limitations Chest Other: Right breast with diffuse tenderness and mild fibrocystic change but no skin change, nipple discharge, palpable mass or enlarged lymph nodes. Left breast with diffuse tenderness and mild fibrocystic change especially in the upper outer quadrant but no discrete mass, skin change, nipple discharge, or enlarged lymph nodes. Resp Effort & Inspection: normal respiratory effort, no audible wheezes, no cough and no respiratory distress GI Inspection: Yes normal to inspection Skin Other: Warm, dry, no rash Neuro General: patient oriented x3 Extrem General: Yes no clubbing, cyanosis or edema Assessment & Plan Assessment & Plan (1) Abnormal mammogram of left breast: Code(s): R92.8 - Other abnormal and inconclusive findings on diagnostic imaging of breast Category: Medical Plan 60-year-old female patient returning for follow-up breast examination. Her most recent mammogram of 05/24/2025 revealed no mammographic evidence of malignancy (BI-RADS 2). Examination today revealed diffuse tenderness however no suspicious findings were noted in either breast. No palpable cystic lesions were appreciated as well. She will continue with yearly mammograms and follow up in approximately 1 year for routine breast examination. She is welcome to call sooner for any new concerns. Coding Level of Care Code Est Pt Level 3 (35503) Complex EM visit Add On G2211 Diagnoses Abnormal mammogram of left breast R92.8
[2025-06-22 15:16] VITALS: BP 139/71; PULSE 95; BMI 29.9
--- OUTSIDE RECORDS SUMMARY | 2025-06-22 17:50 | XMS_ITS | Clinical Summary ---
Author Organization [facility] Address [address] [place] [address] Care Team Providers Care Licensed Massage Practitioner Name Role Phone Margie Pham MD Primary Care Provider [phone] Allergies Active Allergy Reactions Criticality Noted Date [...] age to complete this topic Care Teams Licensed Massage Practitioner Relationship Specialty Start Date End Date Margie Pham MD PCP - General Internal Medicine 10/25/17
--- OUTSIDE RECORDS SUMMARY | 2025-06-22 17:50 | XMS_ITS | Clinical Summary ---
Author Organization [employer] [facility] Address [address] [place] [address] Phone Care Team Providers Care Extracting Machine Operator Name Role Phone Gaudencio Ballard MD Primary Care Provider [phone] Allergies Active Allergy Reactions Criticality Noted Date [...] AM EST) Anatomical Region Laterality Modality Radiographic Laisa ging 09/12/2018 11:1 0 AM EST Narrative [...] % Breast cancer risk category Low (<15%) Guadencio Ballard MD IMG XR PROCEDURES Final Result * Hepatitis C Screening (06/21/2008) Hepatitis C Screening Abstracted Historical Provider HEALTH MAINTENANCE Final Result from Last 3 Months or Most Recently Relevant to Health Maintenance Insurance [employer] MEDICARE Member Subscriber Plan / Payer (Ef fective 2018-Present) Name:ALOK HOOPER Relation to Subscriber:Self Name:Alok Hooper Payer ID:[id number] Group ID:[id number] Type:Not on file Address: [facility] [address] [address] Care Teams Extracting Machine Operator Relationship Specialty Start Date End Date Gaudencio Ballard MD [address] [place] [address] PCP - General Internal Medicine 09/16/19
--- OUTSIDE RECORDS SUMMARY | 2025-06-22 17:50 | XMS_ITS | Clinical Summary ---
Author Organization [employer] [facility] Address [address] [place] [address] 7 [place] [address] Care Team Providers Care Wound Care Physician Name Role Phone Unavailable Primary Care Provider [...] Description 05/31/2025 9:00 AM EDT Office Visit [facility] ADULT D[facility] [address] [place] [address] Funmi Castillo Secondary dental caries associated with failed or defective dental holiness (Primary Dx); Bruxism 05/31/2025 Travel from Last [...] Description 07/05/2025 11:00 AM EST Office Visit [facility] ADULT DENTAL [address] [place] [address] Bobby Ash, DMD [address] [place] [address] Health Maintenance Due Date Last Done Comments [...] caries associated with failed or defective dental holiness CASE PRESENTATION, DETAILED AND EXTENSIVE TREATMENT PLANNING Routine 05/31/2025 9:00 AM EDT Bruxism Secondary dental caries associated with failed or defective dental holiness PROPHYLAXIS - ADULT Routine 05/31/2025 9 :00 AM EDT Bruxism Secondary dental caries associated with failed or defective dental holiness INTRAORAL - COMPLETE SERIES OF RADIOGRAPHIC IMAGES Routine 05/31/2025 9:00 AM EDT Bruxism Secondary dental caries associated with failed or defective dental holiness 5 B(V) COMPOSITE FILLING Routine 025 12:00 [...] AM EDT from Last [address] [place] [address] [place] [address]
--- OUTSIDE RECORDS SUMMARY | 2025-06-22 17:50 | XMS_ITS | Patient Health Record ---
Author Organization [facility] krissy [place] Address [address] [place] [address] Care Team Providers Care Mechanical And Auto Body Car Checker Name Role Phone Elio MATHIS, [facility] Primary Care Provider UnavailArianna Estrella Unavailable [phone] Madison Cox Unavailable [phone] Silvia Green Unavailable [phone] Brock Ordonez Unavailable [phone] Allergies Allergen (clinical drug ingredient) Drug/Non Drug Allergy documented on EMR Reaction Allergy Type Onset Date Status trazodone Trazodone HCl heart palpitations Drug Allergy Active Latex Latex rash Allergy Active Penicillin Unknown Drug Allergy Active Reason For Referral No Information Medications Medication SIG (Take, Route, Frequency, Duration) Notes Start Date End Date Status Diclofenac Sodium 1 % as directed Media/Instructional Designer ally 4 times a day; Duration: 30 [...] Status W/U Status Risk Notes Problem Neuropathy (716453913) Neuropathy (G62.9) Active confirmed Problem Gout (08374895) Gout of right foot (M10.9) Active confirmed Rx drug management (4) Problem Plantar fascial fibromatosis (63171491) Plantar fasciitis, bilateral (M72.2) Active confirmed Vital Signs Heart Rate 80 /min 01/22/2025 Blood pressure diastolic 89 mm Hg 01/22/2025 Height 5ft in 03/05/2025 Blood pressure systolic 124 mm Hg 01/22/2025 Weight 176 lbs 03/05/2025 BMI 34.37 kg/m2 03/05/2025 Encounters Encounter Location Date Provider Diagnosis [facility] [address] [place] [address] 11/05/2024 Brock Ordonez Gout of right foot M10.9 and Pain in right toe(s) M79.[address] [address] 01/22/2025 Arianna Joshi Pain in right foot M79.671 ; Plantar fasciitis, bilateral M72.2 ; Calcaneal spur, right foot M77.31 ; Other myositis of right foot M60.871 ; Bursitis of right foot M77.51 ; Pain in left foot M79.672 ; Calcaneal spur, left foot M77.32 ; Other myositis of left foot M60.872 and Bursitis of left foot M77.[address] [address] 03/05/2025 Arianna Joshi Pain in right foot [...] G62.9 and 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EDNA [facility] [address] 11/09/2024 Brock Ordonez [facility] [address] 11/09/2024 Brock Ordonez [address] [address] 11/17/2024 Brock [facility]done[facility] [address] [address] 03/05/2025 Arianna Joshi [facility] [address] [address] 03/12/2025 Arianna Joshi [address] [address] 04/20/2025 Arianna Joshi Assessments Encounter Date Diagnosis [...] Insured Coverage Start Date Coverage End Date [facility] SCO Claims [address] [place] [id number] Janna Hooper Self - patient is the insured Medical (General) History Medical History History ICD Code Anxiety Arthritis asthma Back,Hip,and Knee pain Fibromyalgia Reflux ( GERD) Chicken pox Surgical History Surgery Date(Month/Year) bladder suspension 2009, 2010, 2011 hysterectomy 2012, 2014, 2018 Hospitalization History Reason Date(Month/Year) [facility] 11/2024 [facility] MRI bilateral ankles 07/21/20
--- OUTSIDE RECORDS SUMMARY | 2025-06-22 17:50 | XMS_ITS | Clinical Summary ---
Author Organization [facility] Address [address] [place] [address] Care Team Providers Care Student Development Coordinator Name Role Phone Margie Pham MD Primary Care Provider [phone] Allergies Active Allergy Reactions Criticality Noted Date [...] series) 2042 Medical Devices Implanted Type Area Flash Welding Machine Operator Device Identifier Shelf Expiration Date Model / Serial / Lot Mesh Pelvic Prolapse Polypropylene Y Shape [id number] [facility] - [id number] - [id number] Implanted:Qty: 1 on 10/13/2018 by Liat Sheikh MD at [facility] Mesh N/A: Vagina COLOPLAST 05/15/2021 [id number] / [id number] / [id number] Insurance [facility] Advance Directives Documents on File Type Date Recorded Patient Amortization Schedule Clerk Expl anation Health Care Proxy 03/07/2021 * Full Code (Latest Code Status on File) Date Activated Date Inactivated Comments 10/13/2018 5:38 AM 10/14/2018 4:15 PM Healthcare Agents on File Name Relationship Healthcare Agent Relationship Communication Evan Hooper Spouse Healthcare Proxy - Primar y Lisa Biggs Daughter Healthcare Prox y - Alternative Care Teams Student Development Coordinator Relationship Specialty Start Date End Date Margie Pham MD PCP - General 06/18/18
== END 2025-06-22 15:29 | disposition home or self-care (01) ==
LOC: HO.HGS 14:46
PROVIDERS: PCP Internal Medicine; Visit Provider Surgery
DX: R92.8 Other abnormal and inconclusive findings on diagnostic imaging of breast (principal)
CPT/HCPCS: 99213; G2211

== ENCOUNTER → 2025-06-22 14:45 | Outpatient (BNVA) | payer OTHER, SELFPAY | PROVIDERS: PCP Internal Medicine; Visit Provider Surgery | DX: Z71.2 Person consulting for explanation of examination or test findings (principal); N64.4 Mastodynia; Z80.3 Family history of malignant neoplasm of breast; R92.8 Other abnormal and inconclusive findings on diagnostic imaging of breast | CPT/HCPCS: 99212 ==

== ENCOUNTER 2025-06-28 12:40 | Outpatient (AMB) | payer OTHER, SELFPAY ==
--- NOTE | 2025-06-28 13:10 | A.OFFVIS_ITS ---
Vital Signs 06/28/25 13:11 Height 5 ft 4 in Weight 174 lb BMI 29.9 BP 113/67 Blood Pressure Location Lt brachial Position Sitting Pulse 76 Intake Visit Reasons: 6 month follow up Intake Note: Janna presents as a 6 month follow up. CC: constipation at times - she states that when se eats sour or spicy foods she feels like it comes up. Plant Operations Coordinator Required: No Allergies cat dander (cats) Allergy (Intermediate, Verified 06/28/25 13:12) Itchy Eyes and burning cigarette smoke Allergy (Intermediate, Verified 06/28/25 13:12) migraines latex Allergy (Intermediate, Verified 06/28/25 13:12) Rash trazodone Allergy (Intermediate, Verified 06/28/25 13:12) palpitations Penicillins Adverse Reaction (Intermediate, Verified 06/28/25 13:12) Abdominal Pain tamsulosin Allergy (Severe, Uncoded 06/28/25 13:12) Dizziness HPI HPI 6 month follow up: Details: 60 yr old f being seen for f/u [place] [facility] [place] abdominal bloating GERD she had 6 surgeries due to bladder mesh and cystocele issues TTG was negative US 12/2021 hepatic steatosis left renal stones, calcifications , renal cyst neg H pylori test EGD/colonsocopy: 07/2022 Endoscopy Findings: sliding hiatal hernia esophagitis schatzki ring Colonoscopy Findings: internal hemorrhoids Path: A. Stomach, biopsy: Antral-type and oxyntic mucosa with moderate chronic active/erosive inflammation; no Helicobacter organisms seen. B. EG junction, biopsy: - Cardiofundic-type mucosa with moderate chronic active inflammation and multilayered epithelium; no fully developed intestinal metaplasia seen. - Chronic active esophagitis (eosinophils and few neutrophils). C. Esophagus, distal, biopsy: Squamous epithelium within normal limits; no inflammation seen. CT- 08/09 kidney stones US 09/17/24 small kidney stone, left fatty liver EGD 09/2024: gastritis duodenitis esophagitis hiatal hernia inlet patch balloon dilation 20 mm at LES, UES and pylorus path with mild inflammation stomach and GEJ INTERIM: she has constipation, needs to increase fiber, has good fluid intake she does take tumeric and sita mix maybe making gerd worse trying to lose weight and had some success EXAM: GENERAL: The patient is well developed and nontoxic. VITAL SIGNS:see workflow HEENT: Nonicteric sclerae, PERRLA, EOMI. Oropharynx clear. Moist mucous membranes. Conjunctivae appear well perfused. No thyroid mass. CHEST: Chest wall is nontender. HEART: Regular rate and rhythm without murmurs. LUNGS: Clear to auscultation bilaterally. ABDOMEN: Soft, positive bowel sounds, nontender, no organomegaly.no flank tenderness SKIN: No rash, no excessive bruising, petechiae, or purpura. NEUROLOGIC: Cranial nerves II-XII intact without motor/sensory deficit. Psych: normal affect A/P: 1/ slow food bolus transit, satiety possibly due to colonic inertia from prior surgeries --motegrity not approved by insurance 2/ Lactulose intolerance PLAN: 1/ can add milk or almond milk with her tumeric 2/ cont with PPI- reviewed correct technique 3/ get ba swallow, if hiatal hernia confirmed can refer for repair 4/ reviewed fatty liver, and weight, diet advice [facility] Medical History Abnormal chest x-ray Asthma BMI 32.0-32.9,adult Obesity Kidney stones Kidney stones, calcium oxalate Perioral dermatitis Muscle spasm Microscopic hematuria Hot flashes Vitamin D deficiency Fibromyalgia Osteoarthritis Chronic GERD Depression, major, recurrent Surgical History Hx of appendectomy History of esophagogastroduodenoscopy (EGD) H/O colonoscopy History of hysterectomy History of surgery Family History Father No problems noted. Mother Asthma Dementia Alzheimer's disease Paternal Aunt Lung cancer Breast cancer, Onset Age: 62 Brother No problems noted. Brother No problems noted. Brother No problems noted. Sister No problems noted. Sister No problems noted. Sister No problems noted. Paternal Aunt Breast cancer, Onset Age: 70 Other Mental health disorder Social History Household Members: Significant Other and Children Household Members Other:: 2 children Housing: House Are you a primary ostomy care nurse to a significant other at home: No Do you presently have visiting nurse or other home services: No Alcohol intake: never Patient Tobacco Use Status: Never used Tobacco e-Cigarette/Vaping Use: Never Used service: No Current occupational status: unemployed and disabled Cognitive needs: No Hearing needs: No Vision needs: Yes Female Reproductive History Menstrual Age of Menarche: 15 Physical Exam Vital Signs: Last Vital Signs Pulse 76 06/28/25 13:11 BP 113/67 06/28/25 13:11 BMI result Body Mass Index 29.9 Assessment & Plan Assessment & Plan (1) Chronic GERD: Code(s): K21.9 - Gastro-esophageal reflux disease without esophagitis Category: Medical Plan: as above Orders: Orders FL barium swallow with air Today R13.10 - Dysphagia, unspecified Patient Instructions: as above Coding Level of Care Code Est Pt Level 3 (12862) Diagnoses Chronic GERD K21.9
[2025-06-28 13:11] VITALS: BP 113/67; PULSE 76; BMI 29.9
--- OUTSIDE RECORDS SUMMARY | 2025-06-28 14:49 | XMS_ITS | Clinical Summary ---
Author Organization [place] [facility] [employer] Address [address] [place] [address] Phone Care Team Providers Care Body And Fender Mechanic Apprentice Name Role Phone Gaudencio Ballard MD Primary Care Provider [phone] Allergies Active Allergy Reactions Criticality Noted Date [...] ID:[id number] Group ID:ICO Type:Not on file Address: [facility] [address] [address] Care Teams Body And Fender Mechanic Apprentice Relationship Specialty Start Date End Date Gaudencio Ballard MD [address] [place] [address] PCP - General Internal Medicine 09/16/19
--- OUTSIDE RECORDS SUMMARY | 2025-06-28 14:49 | XMS_ITS | Clinical Summary ---
Author Organization [employer] [facility] Address [address] [place] [address] 7 [place] [address] Care Team Providers Care Electric Clock Mechanic Name Role Phone Unavailable Primary Care Provider [...] Description 05/31/2025 9:00 AM EDT Office Visit [facility] ADULT D[facility] [address] [place] [address] Funmi Castillo Secondary dental caries associated with failed or defective dental adventism (Primary Dx); Bruxism 05/31/2025 Travel from Last [...] Description 07/05/2025 11:00 AM EST Office Visit [facility]ULT [facility] [address] [place] [address] Bobby Ash, DMD [address] [place] [address] Health Maintenance Due Date Last Done Comments [...] caries associated with failed or defective dental adventism CASE PRESENTATION, DETAILED AND EXTENSIVE TREATMENT PLANNING Routine 05/31/2025 9:00 AM EDT Bruxism Secondary dental caries associated with failed or defective dental adventism PROPHYLAXIS - ADULT Routine 05/31/2025 9 :00 AM EDT Bruxism Secondary dental caries associated with failed or defective dental adventism INTRAORAL - COMPLETE SERIES OF RADIOGRAPHIC IMAGES Routine 05/31/2025 9:00 AM EDT Bruxism Secondary dental caries associated with failed or defective dental adventism 5 B(V) COMPOSITE FILLING Routine 025 12:00 [...] AM EDT from Last [address] [place] [place] [address]
--- OUTSIDE RECORDS SUMMARY | 2025-06-28 14:49 | XMS_ITS | Clinical Summary ---
Author Organization [facility] Address [address] [place] [address] Care Team Providers Care Stamp Press Operator Name Role Phone Margie Pham MD Primary Care Provider [phone] Allergies Active Allergy Reactions Criticality Noted Date [...] age to complete this topic Care Teams Stamp Press Operator Relationship Specialty Start Date End Date Margie Pham MD PCP - General Internal Medicine 10/25/17
--- OUTSIDE RECORDS SUMMARY | 2025-06-28 14:49 | XMS_ITS | Clinical Summary ---
Author Organization [facility] Address [address] [place] [address] Care Team Providers Care Assault Amphibious Vehicle Crewman Name Role Phone Margie Pham MD Primary Care Provider [phone] Allergies Active Allergy Reactions Criticality Noted Date [...] series) 2042 Medical Devices Implanted Type Area Mailroom Messenger Device Identifier Shelf Expiration Date Model / Serial / Lot Mesh Pelvic Prolapse Polypropylene Y Shape [id number] [facility] - [id number] - [id number] Implanted:Qty: 1 on 10/13/2018 by Liat Sheikh MD at [facility] Mesh N/A: Vagina COLOPLAST 05/15/2021 [id number] / [id number] / [id number] Insurance [facility] Advance Directives Documents on File Type Date Recorded 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
--- OUTSIDE RECORDS SUMMARY | 2025-06-28 14:49 | XMS_ITS | Clinical Summary ---
Author Organization [facility] Address [address] [address] Phone Care Team Providers Care Resource Conservation Manager Name Role Phone Gaudencio Ballard MD Primary Care Provider [phone] Allergies Active Allergy Reactions Criticality Noted Date [...] Office Visit [facility] [address] [address] Dania Celaya ARNP [address] [address] Health Maintenance Due Date Last [...] to 49 Years) Discontinued 04/17/2016 Insurance [facility] One Care Dual SNP ([id number]) [facility] One Care Dual SNP ([id number]) Care Teams Resource Conservation Manager Relationship Specialty Start Date End Date Gaudencio Ballard MD [address] [place] [address] PCP - General Internal Medicine 12/12/22
== END 2025-06-28 13:33 | disposition home or self-care (01) ==
LOC: HO.HGI 12:41
PROVIDERS: PCP Internal Medicine; Visit Provider Internal Medicine Gastroenterology
DX: K21.9 Gastro-esophageal reflux disease without esophagitis (principal)
CPT/HCPCS: 99213

== ENCOUNTER → 2025-06-28 12:40 | Outpatient (BNVA) | payer OTHER, SELFPAY | PROVIDERS: PCP Internal Medicine; Visit Provider Internal Medicine Gastroenterology | DX: K21.9 Gastro-esophageal reflux disease without esophagitis (principal); R13.10 Dysphagia, unspecified | CPT/HCPCS: 99212 ==

== ENCOUNTER 2025-07-12 12:30 | Outpatient (AMB) | payer OTHER, SELFPAY ==
--- NOTE | 2025-07-12 12:32 | A.OFFVIS_ITS ---
Vital Signs 07/12/25 12:38 Height 5 ft 4 in Weight 174 lb BMI 29.9 Intake Visit Reasons: fu BL plantar fasciitis Intake Note: Janna is a 60 year old female who presents today for a follow up on her bilateral plantar fasciitis. At her last visit bilateral foot X-rays where ordered and she was prescribed celebrex. Patient was instructed to start PT and to continue utilizing her night splints. Patient reports she is walking better today. She is taking a brrak from taking the celebrex due to making her stomach upset and having head aches. Allergies cat dander (cats) Allergy (Intermediate, Verified 07/12/25 12:37) Itchy Eyes and burning cigarette smoke Allergy (Intermediate, Verified 07/12/25 12:37) migraines latex Allergy (Intermediate, Verified 07/12/25 12:37) Rash trazodone Allergy (Intermediate, Verified 07/12/25 12:37) palpitations Penicillins Adverse Reaction (Intermediate, Verified 07/12/25 12:37) Abdominal Pain tamsulosin Allergy (Severe, Uncoded 06/28/25 13:12) Dizziness HPI HPI fu BL plantar fasciitis: Details: The patient is a 60-year-old female with past medical history including fibromyalgia, lumbar radiculopathy, osteoarthritis who returns 1 month follow up for chronic bilateral heel pain. She has been using the night splint, particularly throughout the day when she is sitting and resting. She notes moderate improvement in her symptoms. She is scheduled to start physical therapy next week. She is still walking on her treadmill for several miles. She states the Celebrex caused GI discomfort after 4 days. She found some relief from taking the medication. Patient notes a history of a cortisone injection to her heel which caused severe pain afterwards. History: The patient reports a burning sensation in the bottom of her feet, which intensifies after resting/sitting for a prolonged period of time and then getting up to walk. The pain is severe enough to cause limping and is primarily located in the heel, but has recently extended to the toes and occasionally radiates to her calf. This condition has persisted for over five years, despite attempts at management, including stretching exercises and injections. The patient has tried various interventions, including the use of supportive footwear and inserts, but reports limited relief. She has also used a massage machine and frozen water bottle stretches to alleviate symptoms. She received a night splint for right lower extremity from her other fighter pilot. The patient has a history of fibromyalgia and arthritis, which may exacerbate her symptoms. She has undergone six surgeries in the past, leading to her current disabled status. Despite these challenges, she remains active. Surgical History: - Six unspecified surgeries leading to disability status Social History: - Employment: Currently not working due to disability status - Exercise: Engages in elliptical workouts, previously used treadmill but stopped due to pain PFSH Medical History Abnormal chest x-ray Asthma BMI 32.0-32.9,adult Obesity Kidney stones Kidney stones, calcium oxalate Perioral dermatitis Muscle spasm Microscopic hematuria Hot flashes Vitamin D deficiency Fibromyalgia Osteoarthritis Chronic GERD Depression, major, recurrent Surgical History Hx of appendectomy History of esophagogastroduodenoscopy (EGD) H/O colonoscopy History of hysterectomy History of surgery Family History Father No problems noted. Mother Asthma Dementia Alzheimer's disease Paternal Aunt Lung cancer Breast cancer, Onset Age: 62 Brother No problems noted. Brother No problems noted. Brother No problems noted. Sister No problems noted. Sister No problems noted. Sister No problems noted. Paternal Aunt Breast cancer, Onset Age: 70 Other Mental health disorder Social History Household Members: Significant Other and Children Household Members Other:: 2 children Housing: House Are you a primary animal caretaker supervisor to a significant other at home: No Do you presently have visiting nurse or other home services: No Alcohol intake: never Patient Tobacco Use Status: Never used Tobacco e-Cigarette/Vaping Use: Never Used service: No Current occupational status: unemployed and disabled Cognitive needs: No Hearing needs: No Vision needs: Yes Female Reproductive History Menstrual Age of Menarche: 15 Review of Systems Const All systems reviewed & are unremarkable except as noted in HPI and below Physical Exam Vital Signs: BMI result Body Mass Index 29.9 Extrem Other: *Bilateral Lower Extremity Focused Exam Vascular: DP/PT 2/4, CFT less than 3 seconds all digits, temperature gradient warm to cool, no pedal edema. Derm: No ecchymosis, no open wounds or lacerations. No clinical signs of infection. Neuro: Protective sensation grossly intact to bilateral lower extremities. Negative Tinel sign. MSK: Mild tenderness on palpation along the medial calcaneal tubercle bilateral heels. No pain or tenderness along the plantar fascial bands, however there are small fibromas present within the medial plantar fascia band of the right foot. Right Ankle dorsiflexion 5 degrees on knee extension right improved, 7-8 degrees on knee flexion. Left ankle dorsiflexion 5 degrees on knee extension, 7-8 degrees on knee flexion. Moderate arch bilaterally. Results Reviewed Results Reviewed: X-ray Read: 06/11/2025 X-ray right foot 3 views (AP, MO, Lateral) reviewed which shows no fractures, dislocations, or gross abnormalities. Bone density is within normal limits. Normal anatomy. No evidence of swelling, foreign body, or calcifications. I personally reviewed the imaging and my findings are listed above. X-ray Read: 06/11/2025 X-ray left foot 3 views (AP, MO, Lateral) reviewed which shows mild plantar calcaneal spur. No fractures, dislocations, or gross abnormalities. Bone density is within normal limits. Normal anatomy. No evidence of swelling, foreign body, or calcifications. I personally reviewed the imaging and my findings are listed above. Assessment & Plan Assessment & Plan (1) Bilateral plantar fasciitis: Code(s): M72.2 - Plantar fascial fibromatosis Category: Medical Plan: * Discussed etiology of the patient's foot pain. Differential diagnosis includes plantar fasciitis, neuritis, tendinitis. * Patient educated on the nature and etiology of plantar fasciitis, which involves inflammation and microtearing of the plantar fascia due to repetitive stress and overuse. * Reviewed bilateral foot x-rays * Instructed to start physical therapy. Patient states she will begin PT next week. * Continue night splint * Follow up in 1 month. (2) Achilles tendinitis of both lower extremities: Code(s): M76.61 - Achilles tendinitis, right leg; M76.62 - Achilles tendinitis, left leg Category: Medical Plan: * Referred to physical therapy Coding Level of Care Code Est Pt Level 3 (47609) Diagnoses Bilateral plantar fasciitis M72.2 Achilles tendinitis of both lower extremities M76.61; M76.62 Time Spent (min) 20
[2025-07-12 12:38] VITALS: BMI 29.9
== END 2025-07-12 12:55 | disposition home or self-care (01) ==
LOC: HO.HPODS 12:30
PROVIDERS: PCP Internal Medicine; Visit Provider Student in an Organized Health Care Education/Training Program
DX: M72.2 Plantar fascial fibromatosis (principal); M76.61 Achilles tendinitis, right leg; M76.62 Achilles tendinitis, left leg
CPT/HCPCS: 99213

== ENCOUNTER → 2025-07-12 12:30 | Outpatient (BNVA) | payer OTHER, SELFPAY | PROVIDERS: PCP Internal Medicine; Visit Provider Student in an Organized Health Care Education/Training Program | DX: M72.2 Plantar fascial fibromatosis (principal); M76.61 Achilles tendinitis, right leg; M76.62 Achilles tendinitis, left leg | CPT/HCPCS: 99212 ==

== ENCOUNTER 2025-07-27 14:05 | Outpatient (AMB) | payer OTHER, SELFPAY ==
--- OUTSIDE RECORDS SUMMARY | 2024-11-17 08:45 | XMS_ITS ---
Author Organization [facility] Address [address] [place] [address] Care Team Providers Care Furs Salesperson Name Role Phone Elio MATHIS, Gaudencio Primary Care Provider Unavailabl Arianna Menjivar Unavailable [phone] Madison Cox Unavailable [phone] Medications Medication SIG (Take, Route, Frequency, Duration) [...] Active Encounters Encounter Location Date Provider Diagnosis [address] [address] 11/17/2024 Madison Cox Plan Of Treatment No Information Progress Notes * Lasha MALIKeDOB:[birth year] (60 yo F)Acc No.[id number]:11/17/2024 Progress Notes Patient: Janna CALLES Provider: Cesar Cox DPM :1965 A ge:59 Y S ex:Female Date:11/17/2024 Address:[address] [place] [address] [place], [id number] Pcp:Gaudencio Ballard MD Subjective: * Chief Complaints: [...] 0 11/17/2024 Generated for Sofi ayoub/Keren/Rhea on: 09/27/2024 08:03 PM EST
--- OUTSIDE RECORDS SUMMARY | 2025-03-22 04:30 | XMS_ITS ---
Author Organization [facility] Address [address] [place] [address] Care Team Providers Care Batch Roller Operator Name Role Phone Elio MATHIS, Gaudencio Primary Care Provider UnavailArianna Estrella Unavailable [phone] Silvia Green Unavailable [phone] REASON FOR VISIT Seen Sooner Encounters Encounter Location Date Provider Diagnosis [address] [address] 03/22/2025 Silvia Green Plan Of Treatment No Information Progress Notes * Danyel MALIKOB:[birth year] (60 yo F)Acc No.[id number]:03/22/2025 Progress Note Patient: Gayle GODDARD Janna Provider: Ania Green DPM :1965 A ge:59 Y S ex:Female Date:03/22/2025 Address:[address] [place], [place] [id number] Pcp:Gaudencio Ballard MD Subjective: * Chief Complaints: * 1 . Seen Sooner. * Medical History: Objective: * Vitals: Assessment: Plan: * Treatment: * Images: * The named appointment provid er may or may not be the originator of this progress note, and it is not deemed complete until electronically signed by the appointment provider. Sign off status: Pending * Provider: Ania Green DPM Date: 0 03/22/2025 Generated for Sofi ayoub/Keren/Rhea on: 1 09/27/2024 08:03 PM EST
[2025-07-27 14:08] VITALS: BP 112/74; PULSE 84; O2SAT 96; BMI 30.1
--- NOTE | 2025-07-27 14:08 | A.OFFVIS_ITS ---
Vital Signs 07/27/25 14:08 Height 5 ft 4 in Weight 175 lb 4.28 oz BMI 30.1 BP 112/74 Blood Pressure Location Rt brachial Position Sitting Pulse 84 Pulse Source Pulse Oximeter Pulse Oximetry (%) 96 Oxygen Delivery Method Room Air Intake Visit Reasons: Shortness of breath Commis Chef Required: No Accompanied by: Self / Same As Patient Allergies cat dander (cats) Allergy (Intermediate, Verified 07/27/25 14:11) Itchy Eyes and burning cigarette smoke Allergy (Intermediate, Verified 07/27/25 14:11) migraines latex Allergy (Intermediate, Verified 07/27/25 14:11) Rash trazodone Allergy (Intermediate, Verified 07/27/25 14:11) palpitations Penicillins Adverse Reaction (Intermediate, Verified 07/27/25 14:11) Abdominal Pain tamsulosin Allergy (Severe, Uncoded 06/28/25 13:12) Dizziness HPI Comments Details: The patient is a 60 year woman with a known history of asthma who apparently was in her usual state health until back in October when she started developing worsening respiratory symptoms. She went to an urgent care and she was treated initially for URI. However, her symptoms continued to worsen with significant respiratory distress and she went to [facility]. While at [facility] she did have a blood gas demonstrating a mixed acute respiratory alkalosis along with acute metabolic acidosis. She was in respiratory distress and they were contemplating having to intubate the patient. She was admitted to the ICU. Her respiratory viral panel did come back positive for human metapneumovirus. I did personally reviewed the x-ray demonstrating reticular nodular opacity suggesting of some degree of pneumonitis. Ultimately she went to her primary care doctor 2 months later and she was still having some difficulty with her breathing. At this point the patient is doing better. She gets sick in the fall and winter though. She is concerned now with her severe bout. She does have grandkids and she had a sick contact before getting sick from the [employer]. The patient needs to get her pneumonia vaccine updated. Will follow-up with PFTs and a chest x-ray sometime in the fall. If she has any issues prior to this she will call for an earlier assessment. 07/27/2025 the patient is here for pulmonary follow-up visit. Overall the patient is doing well from a respiratory status. She is concerned about getting 6 specially since she had the very serious metapneumovirus that ended up in the ICU. She does have her inhalers that she use as needed. Although she is concerned because she has had increased ectopy and palpitations. She did have a Holter monitor done demonstrating indeed sinus tachycardia and also some PVCs. Therefore will go ahead and switch over her albuterol to Xopenex to minimize palpitations at this time. Will hold off on maintenance inhalers at this time. The patient does have difficulty sleeping. She has taken gabapentin that sometimes is too much for her. She was also given a prescription for Ambien. However, she states that she has Ambien in the past and it did cause retrograde amnesia. Therefore I do not recommend she take it again specially if she already had that adverse effects. She can try some herbal therapies and she can also try a smaller dose of gabapentin since she feels like it is too strong. The patient follow-up in 6 months if she has any issues she can always call for further recommendations. [facility] Medical History (Updated 07/27/25 @ 21:23 by Vin Lucas MD) Insomnia Abnormal chest x-ray Asthma BMI 32.0-32.9,adult Obesity Kidney stones Kidney stones, calcium oxalate Perioral dermatitis Muscle spasm Microscopic hematuria Hot flashes Vitamin D deficiency Fibromyalgia Osteoarthritis Chronic GERD Depression, major, recurrent Surgical History Hx of appendectomy History of esophagogastroduodenoscopy (EGD) H/O colonoscopy History of hysterectomy History of surgery Family History Father No problems noted. Mother Asthma Dementia Alzheimer's disease Paternal Aunt Lung cancer Breast cancer, Onset Age: 62 Brother No problems noted. Brother No problems noted. Brother No problems noted. Sister No problems noted. Sister No problems noted. Sister No problems noted. Paternal Aunt Breast cancer, Onset Age: 70 Other Mental health disorder Social History Household Members: Significant Other and Children Household Members Other:: 2 children Housing: House Are you a primary healthcare applications analyst to a significant other at home: No Do you presently have visiting nurse or other home services: No Alcohol intake: never Patient Tobacco Use Status: Never used Tobacco e-Cigarette/Vaping Use: Never Used service: No Current occupational status: unemployed and disabled Cognitive needs: No Hearing needs: No Vision needs: Yes Female Reproductive History Menstrual Age of Menarche: 15 Review of Systems Const Denies chills and Denies fever(s) ENT Denies epistaxis and Denies nasal discharge Card Denies chest pain Resp Denies chest congestion, Denies cough and Denies hemoptysis GI Reports no additional complaints, Denies diarrhea and Denies nausea Musc Reports no additional complaints Skin/Breast Denies rash Neuro Reports no additional complaints Psych Reports no additional complaints Endo Reports no additional complaints Physical Exam Vital Signs: Last Vital Signs Pulse 84 07/27/25 14:08 BP 112/74 07/27/25 14:08 Pulse Ox 96 07/27/25 14:08 Oxygen Delivery Method Room Air 07/27/25 14:08 BMI result Body Mass Index 30.1 Const General: comfortable and no acute distress HEENT Head: Yes normocephalic Ears: external ears normal Face and sinus: Yes sinuses nontender Neck Neck: Yes supple Chest Chest palpation & inspection: normal inspection of the chest Resp Effort & Inspection: normal respiratory effort Auscultation: clear to auscultation bilaterally Cardio Rate: regular rate Heart sounds: S1 normal heart sound present and S2 normal heart sound present GI Palpation (GI): Soft to palpation Skin General skin exam: no rashes or lesions noted Neuro General: gait normal and moves all extremities Extrem General: Yes no clubbing, cyanosis or edema Psych Speech and movement: Normal speech and movement present Assessment & Plan Assessment & Plan (1) Asthma: Code(s): J45.909 - Unspecified asthma, uncomplicated Category: Medical Qualifiers: Asthma complication type: uncomplicated Asthma persistence: intermittent Asthma severity: mild Qualified Code(s): J45.20 - Mild intermittent asthma, uncomplicated (2) Abnormal chest x-ray: Code(s): R93.89 - Abnormal findings on diagnostic imaging of other specified body structures Category: Medical (3) Insomnia: Code(s): G47.00 - Insomnia, unspecified Category: Medical Qualifiers: Insomnia type: primary Qualified Code(s): F51.01 - Primary insomnia Plan EDUARDO as needed, switch to Xopenex Holding maintenance inhaler decrease Gabapentin 200mg QHS F/U 8-12 months Medications: New gabapentin 200 mg (2 x 100 mg) PO BEDTIME 60 caps 6RF 30 days levalbuterol tartrate 45 mcg/actuation (Xopenex HFA) 2 puffs inhalation Q6H PRN 15 grams 11RF shortness of breath or wheezing 30 days J45.909 - Unspecified asthma, uncomplicated benzonatate 200 mg PO BID PRN 30 caps 0RF cough 30 days Coding Level of Care Code Est Pt Level 4 (68944) Diagnoses Mild intermittent asthma without complication J45.20 Asthma complication type: uncomplicated Asthma persistence: intermittent Asthma severity: mild Abnormal chest x-ray R93.89 Primary insomnia F51.01 Insomnia type: primary Time Spent (min) 17
--- OUTSIDE RECORDS SUMMARY | 2025-07-27 20:03 | XMS_ITS | Clinical Summary ---
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 (Primary Dx); Bruxism 05/31/2025 Travel from Last [...] Description 08/23/2025 10:00 AM EST Office Visit [facility] [address], [place] [phone] Bobby Ash, DMD [address], [place] [phone] Health Maintenance Due Date Last Done Comments [...] caries associated with failed or defective dental episcopalian CASE PRESENTATION, DETAILED AND EXTENSIVE TREATMENT PLANNING Routine 05/31/2025 9:00 AM EDT Bruxism 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
--- OUTSIDE RECORDS SUMMARY | 2025-07-27 20:04 | XMS_ITS | Clinical Summary ---
Author Organization [employer] [facility] [employer] Address [address] [place] [address] Phone Care Team Providers Care Research Biostatistician Name Role Phone Gaudencio Ballard MD Primary Care Provider [phone] Allergies Active Allergy Reactions Criticality Noted Date [...] Surgery Date Site/Laterality Comments ESOPHAGOGASTRODUODENOSCOPY 01/21/07 PROCEDURE: WI ESOPHAGOGASTRODUODENOSCOPY TRANSORAL DIAGNOSTIC; COMMENT: Normal PARTIAL HYSTERECTOMY 03/2010 PROCEDURE: WI SUPRACERVICAL ABDL HYSTER W/WO RMVL TUBE OVARY; COMMENT: Da Dragan TLH with sacropexy, mesh urethral support OTHER SURGICAL HISTORY PROCEDURE: FEMALE SLING SYS W/WO MATRL OTHER SURGICAL HISTORY PROCEDURE: WI RMVL PROSTC MATRL/MESH ABDL WALL FOR INFECTION BREAST SURGERY 2012 Right PROCEDURE: WI UNLISTED PROCEDURE BREAST; COMMENT: rt cyst removed [...] Most Recently Relevant to Health Maintenance Insurance [facility] MEDICARE Member Subscriber Plan / Payer (Ef fective 2018-Present) Name:ALOK HOOPER Relation to Subscriber:Self Name:Alok Hooper Payer ID:[id number] Group ID:[id number] Type:Not on file Address: [address] [place] [address] Care Teams Research Biostatistician Relationship Specialty Start Date End Date Gaudencio Ballard MD [address] [place] [address] PCP - General Internal Medicine 09/16/19
--- OUTSIDE RECORDS SUMMARY | 2025-07-27 20:04 | XMS_ITS | Clinical Summary ---
Author Organization [facility] Address [address] [place] [address] Care Team Providers Care Latin Dancer Name Role Phone Margie Pham MD Primary Care Provider [phone] Allergies Active Allergy Reactions Criticality Noted Date [...] 06/26/2012, 08/27/2003 Medical Devices Implanted Type Area Hose Builder Device Identifier Shelf Expiration Date Model / Serial / Lot Mesh Pelvic Prolapse Polypropylene Y Shape [id number] [facility] - [id number] - [id number] Implanted:Qty: 1 on 10/13/2018 by Liat Sheikh MD at [facility] Mesh N/A: Vagina COLOPLAST 05/15/2021 [id number] / [id number] / [id number] Insurance Advance Directives Documents on File Type Date Recorded Patient Bicycle Messenger Expl anation Health Care Proxy 03/07/2021 * Full Code (Latest Code Status on File) Date Activated Date Inactivated Comments 10/13/2018 5:38 AM 10/14/2018 4:15 PM Healthcare Agents on File Name Relationship Healthcare Agent Relationship Communication Evan Rufus Spouse Healthcare Proxy - Primar y Lisa Biggs Daughter Healthcare Prox y - Alternative Care Teams Latin Dancer Relationship Specialty Start Date End Date Margie Pham MD PCP - General 06/18/18
--- OUTSIDE RECORDS SUMMARY | 2025-07-27 20:04 | XMS_ITS | Patient Health Record ---
Author [facility] Address [address] [place] [address] Care Team Providers Care Sand Cleaning Machine Operator Name Role Phone Elio MATHIS, [facility] Primary Care Provider UnavailArianna Estrella Unavailable [phone] Madison Cox Unavailable [phone] Silvia Green Unavailable [phone] Brock Ordonez Unavailable [phone] Allergies Allergen (clinical drug ingredient) Drug/Non Drug Allergy documented on EMR Reaction Allergy Type Onset Date Status trazodone Trazodone HCl heart palpitations Drug Allergy Active Latex Latex rash Allergy Active Penicillin Unknown Drug Allergy Active Reason For Referral No Information Medications Medication SIG (Take, Route, Frequency, Duration) Notes Start Date End Date Status Diclofenac Sodium 1 % as directed Facility Examiner ally 4 times a day; Duration: 30 [...] Status W/U Status Risk Notes Problem Neuropathy (731396007) Neuropathy (G62.9) Active confirmed Problem Gout (67788776) Gout of right foot (M10.9) Active confirmed Rx drug management (4) Problem Plantar fascial fibromatosis (80176603) Plantar fasciitis, bilateral (M72.2) Active confirmed Vital Signs Heart Rate 80 /min 01/22/2025 Blood pressure diastolic 89 mm Hg 01/22/2025 Height 5ft in 03/05/2025 Blood pressure systolic 124 mm Hg 01/22/2025 Weight 176 lbs 03/05/2025 BMI 34.37 kg/m2 03/05/2025 Encounters Encounter Location Date Provider Diagnosis [facility] [address] [place] [address] 11/05/2024 Brock Ordonez Gout of right foot M10.9 and Pain in right toe(s) M79.[address] [address] 01/22/2025 Arianna Joshi Pain in right foot M79.671 ; Plantar fasciitis, bilateral M72.2 ; Calcaneal spur, right foot M77.31 ; Other myositis of right foot M60.871 ; Bursitis of right foot M77.51 ; Pain in left foot M79.672 ; Calcaneal spur, left foot M77.32 ; Other myositis of left foot M60.872 and Bursitis of left foot M77.[address] [address] 03/05/2025 Arianna Joshi Pain in right foot [...] G62.9 and 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[facility] [address] 11/09/2024 [facility] [address] 11/09/2024 Brock Ordonez [address] [address] 11/17/2024 [facility] [address] [address] 03/05/2025 [facility] [address] [address] 03/12/2025 Arianna Joshi [address] [address] 04/20/2025 Arianna Joshi Assessments Encounter Date Diagnosis [...] Start Date Coverage End Date [facility] [employer] Claims [address] [place] [id number] Janna Hooper Self - patient is the insured Medical (General) History Medical History History ICD Code Anxiety Arthritis asthma Back,Hip,and Knee pain Fibromyalgia Reflux ( GERD) Chicken pox Surgical History Surgery Date(Month/Year) bladder suspension 2009, 2010, 2011 hysterectomy 2012, 2014, 2018 Hospitalization History Reason Date(Month/[place] [facility] [place] [facility] [place] bilateral ankles 07/21/20
--- OUTSIDE RECORDS SUMMARY | 2025-07-27 20:04 | XMS_ITS | Clinical Summary ---
Author Organization [facility] Prior to 01/16/25 Address [address] [place] [address] Care Team Providers Care Habitat Biologist Name Role Phone Margie Pham MD Primary Care Provider [phone] Allergies Active Allergy Reactions Criticality Noted Date [...] of 2) 2017 BMI Counseling 01/15/2020 01/14/2019, 0502/2019, 11/20/2018, Additional history exists Depression Screening 01/15/2020 [...] age to complete this topic Care Teams Habitat Biologist Relationship Specialty Start Date End Date Margie Pham MD PCP - General Internal Medicine 10/25/17
== END 2025-07-27 14:38 | disposition home or self-care (01) ==
LOC: HO.HPS 14:06
PROVIDERS: PCP Internal Medicine; Visit Provider Hospitalist
DX: J45.20 Mild intermittent asthma, uncomplicated (principal); R93.89 Abnormal findings on diagnostic imaging of other specified body structures; F51.01 Primary insomnia
CPT/HCPCS: 99214

== ENCOUNTER → 2025-07-27 14:05 | Outpatient (BNVA) | payer OTHER, SELFPAY | PROVIDERS: PCP Internal Medicine; Visit Provider Hospitalist | DX: J45.20 Mild intermittent asthma, uncomplicated (principal); F51.01 Primary insomnia; R93.89 Abnormal findings on diagnostic imaging of other specified body structures; Z79.899 Other long term (current) drug therapy | CPT/HCPCS: 99212 ==